=== PATIENT | female | born 1960 | race Caucasian/White ===

== ENCOUNTER → 2018-06-23 | Outpatient (CLI) | payer OTHER ==
--- NOTE | 2018-06-23 21:28 | Diagnostic Imaging Report ---
INDICATION: Routine screening. Comparison is made with prior mammograms from 01/30/2016 and 12/22/2013. 2-D and 3-D bilateral screening mammography was performed with computer-aided Detection (CAD) system. FINDINGS: Scattered fibroglandular densities are identified bilaterally. There is an area of increased density identified in the retroareolar aspect of the left breast medially which appears more prominent when compared with prior mammograms. There appears to be some questionable spiculation and architectural distortion. Additional views are recommended. No suspicious microcalcifications are identified. The right breast is unremarkable. The axillae are unremarkable. IMPRESSION: Left breast density retroareolar and slightly medial, as described. Additional views including spot compression, rolled CC, and 90-degree lateral views are recommended. Ultrasound will be necessary as well if density persists. ACR BI-RADS Category 0: Incomplete. (Needs additional imaging evaluation). Result letter will be mailed to the patient. Note: At least 10% of breast cancer is not imaged by mammography. Dictated by: Dictated on workstation # [id number]
== END ==
LOC: RAD 07:42
PROVIDERS: ATTEND Family Medicine
DX: Z12.31 Encounter for screening mammogram for malignant neoplasm of breast (principal)
CPT/HCPCS: 77067

== ENCOUNTER → 2018-07-01 | Outpatient (CLI) | payer OTHER ==
--- NOTE | 2018-07-01 19:37 | Diagnostic Imaging Report ---
INDICATION: Left breast density. Correlation is made with diagnostic mammogram earlier same day. FINDINGS: Sonographic interrogation of the upper and inner aspect of the left breast was performed. There is a hypoechoic mass at the 11 o'clock location left breast 2 cm from the nipple measuring 14 mm x 9 mm x 11 mm. This has somewhat angular margins. This does show some internal vascularity. No significant posterior acoustic enhancement is seen. IMPRESSION: Irregular hypoechoic mass at the 11 o'clock location of the left breast, corresponding to the mammographic density. Features are concerning for breast neoplasm. Tissue sampling is recommended. This would be amenable to ultrasound-guided core biopsy. ACR BI-RADS Category 4: Suspicious abnormality. Dictated by: Dictated on workstation # [id number]
--- NOTE | 2018-07-01 19:48 | Diagnostic Imaging Report ---
INDICATION: Left breast density. Patient presents for additional views. COMPARISON: Correlation is made with screening study from 06/23/2018. EXAMINATION: 2D and 3D unilateral left diagnostic mammography was performed. This includes spot compression CC and ML views as well as conventional 90 degree lateral view. The current study was also evaluated with a Computer Aided Detection (CAD) system. FINDINGS: Additional views show persistent irregular density in the medial and upper aspect of the left breast, approximately 3 cm from the nipple. No associated soft tissue calcifications are seen. There does appear to be some questionable spiculation and architectural distortion present. IMPRESSION: BI-RADS 0. Persistent irregular density in the upper and inner aspect of the left breast anterior depth. Further evaluation with ultrasound is recommended. ACR BI-RADS Category 0: Incomplete. (Needs additional imaging evaluation). Result letter will be mailed to the patient. Note: At least 10% of breast cancer is not imaged by mammography. Dictated by: Dictated on workstation # [id number]
== END ==
LOC: RAD 08:17
PROVIDERS: ATTEND Family Medicine
DX: N63.22 Unspecified lump in the left breast, upper inner quadrant (principal)
CPT/HCPCS: 76642

== ENCOUNTER → 2018-07-02 | Outpatient (CLI) | payer OTHER ==
[~2018-07-02] VITALS: Ht 175.3 cm; Wt 93.0 kg
[~2018-07-02] MED LIST: LIDOCAINE 1% INJ 20 ML 20 ML VIAL INJ ONE
--- NOTE | 2018-07-02 11:30 | Diagnostic Imaging Report ---
INDICATION: Left breast mass. Patient presents for ultrasound guided biopsy. TECHNIQUE: The patient was brought to the procedure room and placed in the bed in the supine position. Ultrasound imaging over the left breast was performed to evaluate for an appropriate entry site. The left breast was then prepped and draped in the usual sterile fashion. A small amount of 1% lidocaine was utilized for local anesthesia. A total of six core biopsies of the hypoechoic mass at the 11 o'clock location of the left breast 2 cm from the nipple was performed utilizing a 14-gauge Achieve needle. A marker clip was then deployed. Hemostasis was obtained using manual compression. The patient tolerated the procedure well and was sent for a post procedure mammogram in satisfactory condition. IMPRESSION: Successful ultrasound-guided core biopsy of the hypoechoic mass at the 11 o'clock location of the left breast, 2 cm from the nipple. The pathology results are currently pending. Dictated by: Dictated on workstation # [id number]
--- NOTE | 2018-07-02 11:31 | Diagnostic Imaging Report ---
INDICATION: Status post left breast biopsy. FINDINGS: 2D CC and ML views of the left breast were obtained. There is a marker clip identified in the upper and inner retroareolar aspect of the left breast corresponding to the known recently biopsied breast mass. IMPRESSION: The marker clip appears to be within the known lesion recently biopsied in the upper inner left breast. Dictated by: Dictated on workstation # [id number]
== END ==
LOC: RAD 08:15
PROVIDERS: ATTEND Family Medicine
DX: C50.912 Malignant neoplasm of unspecified site of left female breast (principal); N63.22 Unspecified lump in the left breast, upper inner quadrant
CPT/HCPCS: 19083; 88305; 88342; 88360

== ENCOUNTER → 2018-07-29 | Outpatient (CLI) | payer OTHER ==
--- NOTE | 2018-07-29 14:27 | Diagnostic Imaging Report ---
INDICATION: Cough for five days. TIME OF EXAM: 02:09 p.m. COMPARISON: No prior studies are available for comparison. FINDINGS: Heart size is normal. There is some linear scarring in the left base. No infiltrates are seen. No effusion or pneumothorax is identified. IMPRESSION: No acute cardiopulmonary process is detected. Called to Nita at 2:21 p.m. by cvb. Dictated by: Dictated on workstation # [id number]
== END ==
LOC: RAD 13:55
PROVIDERS: ATTEND Family Medicine
DX: R05 Cough (principal)
CPT/HCPCS: 71046

== ENCOUNTER → 2018-11-01 | Outpatient (CLI) | payer OTHER ==
--- NOTE | 2018-11-01 14:11 | Diagnostic Imaging Report ---
PROCEDURE: US Non-ob pelvis comp/trans. TECHNIQUE: Multiple realtime grayscale images were obtained of the pelvis in various projections endovaginally. Transabdominal imaging was also performed. INDICATION: Abnormal uterine bleeding. FINDINGS: Uterus measures 4.9 x 3.4 x 2.4 cm. Endometrium appears to be thin at approximately 2 mm. There is some myometrial heterogeneity but no discrete mass is detected. Ovaries cannot be visualized due to bowel gas. No adnexal mass or free fluid is seen. IMPRESSION: Nonvisualized ovaries. The study is otherwise unremarkable. Dictated by: Dictated on workstation # [id number]
== END ==
LOC: RAD 11:56
PROVIDERS: ATTEND Family Medicine
DX: N93.8 Other specified abnormal uterine and vaginal bleeding (principal)
CPT/HCPCS: 76830; 76856

== ENCOUNTER → 2019-01-04 | Outpatient (CLI) | payer OTHER ==
--- NOTE | 2019-01-04 16:02 | Diagnostic Imaging Report ---
INDICATION: Postmenopausal screening COMPARISON: Baseline FINDINGS: AP Spine L1-L4: [BMD (g/cm2): 1.291] [T-Score: 0.8] [Z-Score: 1.0] [BMD Previous: N/A] [BMD % Change: N/A] LT Hip Neck: [BMD (g/cm2): 0.993] [T-Score: -0.3] [Z-Score: 0.3] LT Hip Total: [BMD (g/cm2):1.124] [T-Score:0.9] [Z-Score: 1.2] [BMD Previous: N/A] [BMD % Change: N/A] RT Hip Neck: [BMD (g/cm2):1.029] [T-Score:-0.1] [Z-Score:0.6] RT Hip Total: [BMD (g/cm2):1.063] [T-score:0.4] [Z-Score:0.7] [BMD Previous:N/A] [BMD % Change:N/A] *Indicates significant change from prior examination based on 95% confidence level. World Health Organization criteria for BMD interpretation classify patients as Normal (T-score at or above -1.0), Osteopenic (T-score between -1.0 and -2.5) or Osteoporotic (T-score at or below -2.5). LIMITATIONS AND MODIFICATION: None. FRACTURE RISK (FRAX SCORE): The ten year probability of (%): Major Osteoporotic Fracture: [N/A] Hip Fracture: [N/A] IMPRESSION: 1. Normal Bone mineral density. 2. Baseline examination. 3. See below National Osteoporosis Foundation guidelines on when to potentially initiate pharmacologic therapy. Based on the National Osteoporosis Foundation Guidelines, pharmacologic treatment should be initiated in any of the following, unless clinical conditions suggest otherwise: * Any patient with prior fragility fracture of the hip or vertebrae. A spine fracture indicates 5X risk for subsequent spine fracture and 2X risk for subsequent hip fracture. * Osteoporosis (T-score <-2.5). * Postmenopausal women and men age 50 and older with low bone mass/osteopenia (T-score between -1.0 and -2.5) by DXA and 10-year major osteoporotic fracture greater than 20% or a 10-year probability of hip fracture greater than 3%. These fracture risks are supplied above in the FRAX score, if applicable. * Clinician judgement and/or patient preferences may indicate treatment for people with 10-year fracture probabilities above or below these levels. Dictated by: Dictated on workstation # [id number]
== END ==
LOC: RAD 09:59
PROVIDERS: ATTEND Internal Medicine Hematology & Oncology
DX: Z13.820 Encounter for screening for osteoporosis (principal); C50.912 Malignant neoplasm of unspecified site of left female breast; Z17.0 Estrogen receptor positive status [ER+]; Z78.0 Asymptomatic menopausal state
CPT/HCPCS: 77080

== ENCOUNTER 2019-04-13 05:35 | Outpatient (CLI) | payer OTHER ==
[~2019-04-13] VITALS: Ht 175 cm; Wt 86.3 kg
[2019-04-13] MEDS ORDERED: NF-AROM25 PO (09:16)
== END 2019-04-13 09:20 ==
LOC: PREOP 05:35
PROVIDERS: ATTEND Surgery
DX: Z01.818 Encounter for other preprocedural examination (principal)

== ENCOUNTER 2019-04-20 09:42 | Day surgery (SDC) | payer OTHER, BC ==
[~2019-04-20] VITALS: Ht 175 cm; Wt 86.3 kg
[2019-04-20] VITALS (15 sets, daily range): BP systolic 104–136; BP diastolic 5–80
[~2019-04-20 09:42] MED LIST changes: -LIDOCAINE 1% INJ 20 ML 20 ML VIAL INJ ONE; +NF-AROM25 PO
[2019-04-20] MEDS ORDERED: NS IV 500 ML 500 ML ONE (09:44)
[2019-04-20] MEDS ORDERED: NS IV 500 ML 500 ML IV PRN (09:58)
[2019-04-20] MEDS ORDERED: LIDOCAINE JELLY 2% 6 ML SYRINGE MM PRN (10:00)
[2019-04-20] MEDS ORDERED: fentaNYL INJECTION 100 MCG/2 ML AMP IVP ONE (10:00)
--- NOTE | 2019-04-20 10:34 | Progress Note-Pre Operative ---
Pre-Operative Progress Note H&P Reviewed The H&P was reviewed, patient examined and no changes noted. Date Seen by Provider: Apr 20, 2019 Time Seen by Provider: 10:00 Date H&P Reviewed: Apr 20, 2019 Time H&P Reviewed: 10:00 Pre-Operative Diagnosis: high risk quang, CHRISTINA Chen MD Apr 20, 2019 10:34 POS
--- NOTE | 2019-04-20 10:34 | Conscious Sedation/ASA ---
Conscious Sedation Pre-Proced Time 10:00 ASA Score 2 For ASA 3 and 4: Consider anesthesia and medical clearance. Also, for patients with a history of failed moderate sedation consider anesthesia. Airway Lungs Heart ASA score ASA 1: a normal healthy patient ASA 2: a patient with a mild systemic disease (mid diabetes, controlled hypertension, obesity ASA 3: a patient with a severe systemic disease that limits activity (angina, COPD, prior Myocardial infarction) ASA 4: a patient with an incapacitating disease that is a constant threat to life (CHF, renal failure) ASA 5: a moribund patient not expected to survive 24 hrs. (ruptured aneurysm) ASA 6: a declared brain- patient whose organs are being harvested. For emergent operations, add the letter E after the classification Mallampati Classification Grade 2 Sedation Plan Analgesia, Amnesia, Plan communicated to team members, Discussed options with patient/fam, Discussed risks with patient/fam The patient is an appropriate candidate to undergo the planned procedure, sedation, and anesthesia. The patient immediately re-assessed prior to indication. CHRISTINA FAIR MD Apr 20, 2019 10:34 POS
--- NOTE | 2019-04-20 10:36 | Discharge Inst-Surgical ---
D/C Lap Instructions-MARV Follow Up 5yrs Activity as tolerated High Fiber Diet 25g or more per day Avoid Alcohol, Caffeine, Spicy [place] and Acid foods. Drink 64 fluid oz or more of fluids per day. Symptoms to Report: Fever over 101 degree F, Nausea/Vomiting If any problems/questions: Contact your physician or go to Emergency Room CHRISTINA FAIR MD Apr 20, 2019 10:36 POS
[2019-04-20] MEDS ORDERED: ONDANSETRON 4 MG/2 ML (SDV) Z0FRAN IVP PRN (10:45)
[2019-04-20] MEDS ORDERED: morphine INJ 10 MG/ML 1ML (SYR OR VIAL) IVP PRN ×2 (10:45)
[2019-04-20] MEDS ORDERED: HYDROcodone/APAP 5 MG/325 MG (LORTAB) TAB PO PRN (10:45)
[2019-04-20] MEDS ORDERED: ACETAMINOPHEN 325 MG TABLET PO PRN (10:45)
[2019-04-20] MEDS ORDERED: LIDOCAINE JELLY 2% 6 ML SYRINGE ONE (11:00)
[2019-04-20] MEDS ORDERED: fentaNYL INJECTION 100 MCG/2 ML AMP ONE ×2 (11:00)
[2019-04-20] MEDS ORDERED: MIDAZOLAM 5 MG/5 ML (VERSED) VIAL ONE ×2 (11:00→11:01)
[2019-04-20] MEDS: MIDAZOLAM 5 MG/5 ML (VERSED) VIAL IV PRN ×6 (11:25→11:38)
--- NOTE | 2019-04-20 12:18 | Progress Note-Post Operative ---
Post-Operative Progess Note Surgeon (s)/Service Delivery Analyst (s) Surgeon CHRISTINA FAIR MD Service Delivery Analyst: none Pre-Operative Diagnosis high risk genentic, screening Post-Operative Diagnosis normal rectum and colon Procedure & Operative Findings Date of Procedure 04/20/19 Procedure Performed/Findings colonoscopy Anesthesia Type cs Estimated Blood Loss Estimated blood loss (mL): minimal Specimens/Packing Specimens Removed none CHRISTINA FAIR MD Apr 20, 2019 12:18 POS
--- NOTE | 2019-04-20 19:34 | OPERATIVE REPORT ---
DATE OF SERVICE: 04/20/2019 ATTENDING PRIMARY CARE PHYSICIAN: Meghan Del Rosario DO PREOPERATIVE DIAGNOSES: Screening colonoscopy with a personal history of breast cancer as well as genetic mutation, called a Bard1 gene. She also does have a family history of colon cancer with her maternal grandmother and mother having the disease. POSTOPERATIVE DIAGNOSES: Screening colonoscopy with a personal history of breast cancer as well as genetic mutation, called a Bard1 gene. She also does have a family history of colon cancer with her maternal grandmother and mother having the disease. PROCEDURE PERFORMED: Colonoscopy. SURGEON: Christina Fair MD. ANESTHESIA: Conscious sedation. ESTIMATED BLOOD LOSS: Minimal. FINDINGS: Screening colonoscopy with a personal history of breast cancer as well as genetic mutation, called a Bard1 gene. She also does have a family history of colon cancer with her maternal grandmother and mother having the disease. DISPOSITION: The patient tolerated the procedure well. INDICATIONS: The patient is a 59-year-old female who we have seen before in the past. Last colonoscopy was in 2013, where she was found to have mild sigmoid diverticulosis and a small hyperplastic polyp, which was benign. 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 Upon further questioning, she also does report her mother having breast and colon cancer as well her maternal grandmother having colon cancer. Due to her family history as well as genetic history, she is considered high risk and will need to have colonoscopies every 5 years. DESCRIPTION OF PROCEDURE: The patient was brought to the endoscopy suite, laid in the left lateral decubitus position. After adequate IV pain and sedative medications and conscious sedation anesthesia, a digital rectal examination was performed. No significant hemorrhoids identified. Normal sphincter tone was felt and there were no palpable masses. The endoscope was then intubated to the anus and rectum gently insufflated. The endoscope was then advanced to the valves of Kruse rectum with no polyps or any neoplasms identified. Sigmoid colon showed a very mild sigmoid diverticulosis. The remainder of the descending, transverse and ascending colon to the cecum were normal. There were no polyps or any neoplasms identified. The endoscope was then slowly withdrawn while taking a second look and suctioning of residual air with no additional findings. The patient tolerated the procedure well. We will recommend continued medical management with a high fiber diet with 25 grams of fiber or more daily as well as significant amounts of water to promote soft stools on a daily basis and to follow up colonoscopy in approximately 5 years. Job ID: [id number] DocumentID: [id number] Dictated Date: 04/20/2019 11:54:39 Ic Engineer Date: 04/20/2019 19:33:41 Dictated By: CHRISTINA FAIR MD MTDD
--- OUTSIDE RECORDS SUMMARY | 2019-05-15 23:37 | XMS REPORT | Encounter Summary ---
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, estrogen receptor positive (HCC) [C50.212, Z17.0] P rocedures GA IMMT INSJ BRST PROSTH FLWG MASTOPEXY MAST/RCNSTJ INSERTION BREAST PROSTHESIS FOLLOWING MASTOPEXY/ MASTECTOMY/ IN RECONSTRUCTION - IMMEDIATERight breast implant exchange with washoutCase length=1hr Encounter Details Care Team Description Date Type Department Yoon Ch MD [address] [place] [address] [phone] Infection of right breast 05/06/2019 [facility] 05/07/2019 [address] [place] [address] Social History Date Tobacco Use Types Packs/Day Years Used Never Smoker Smokeless Tobacco: Never Used Drinks/Week oz/Week Comments Alcohol Use No Alcohol Habits Answer Date Recorded How often do you have a drink containing alcohol? Never 07/14/2018 How many drinks containing alcohol do you have on No t asked a typical day when you are drinking? How often do you have six or more drinks on one Not asked occasion? Sex Assigned at Date Recorded Not on file Industry Job Start Date Occupation Not on file Not on file Not on file Travel End Travel History Travel Start No recent travel history available. documented as of this encounter Last Filed Vital Signs Reading Time Taken Comments Vital Sign 114/68 05/07/2019 11:15 AM VASCULAR ULTRASOUND TECHNICIAN Blood Pressure 74 05/07/2019 2:58 AM VASCULAR ULTRASOUND TECHNICIAN Pulse 36.6 C (97.8 F) 05/07/2019 11:15 AM VASCULAR ULTRASOUND TECHNICIAN Temperature - - Respiratory Rate 98% 05/07/2019 11:15 AM VASCULAR ULTRASOUND TECHNICIAN Oxygen Saturation - - Inhaled Oxygen Concentration 92.8 kg (204 lb 9.4 oz) 05/06/2019 3:25 PM VASCULAR ULTRASOUND TECHNICIAN Weight 175.3 cm (5' 9") 05/06/2019 11:09 AM VASCULAR ULTRASOUND TECHNICIAN Height 30.21 05/06/2019 11:09 AM VASCULAR ULTRASOUND TECHNICIAN Body Mass Index documented in this encounter Functional Status Date of Assessment Functional Status Response 05/06/2019 Does the patient have a hearing impairment: No 03/17/2019 Does the patient have a visual impairment: Yes 03/17/2019 Does the patient have impaired ambulation: No 03/17/2019 Does the patient have an activity of daily living No (ADL) impairment: 03/17/2019 Does the patient have an instrumental activity of No daily living (IADL) impairment: Date of Assessment Cognitive Status Response 03/17/2019 Does the patient have a cognitive impairment: No documented as of this encounter Discharge Instructions * Appointments* Carmen Orona MD - 05/06/2019 12:30 PM VASCULAR ULTRASOUND TECHNICIAN Please contact Dr. Ch's office at [phone] to schedule a post-operativ e appointment in 1-2 weeks ULAR ULTRASOUND TECHNICIAN documented in this encounter Medications at Time of Discharge Start Date End Date Medication Sig Dispensed Refills 08/04/2018 acetaminophen (TYLENOL) Take two 40 tablet 0 325 mg tablet tablets by mouth every 6 hours. Take as scheduled for 3 days following surgery, then as needed for pain after this. Do not exceed 4,000mg in a 24 hour period. ALPHA LIPOIC ACID PO Take by 0 mouth. 06/01/2018 ALPRAZolam (XANAX) 0.25 Take 0.5 mg 0 mg tablet by mouth as Needed. aspirin/acetaminophen/caf Take by 0 feine (EXCEDRIN MIGRAINE mouth as PO) Needed. biotin 10,000 mcg TbDi Dissolve 1 0 tablet by mouth daily. cetirizine (ZYRTEC) 10 mg Take 10 mg by 0 tablet mouth every morning. cholecalciferol(+) Take 5,000 0 (VITAMIN D-3) 5,000 unit Units by tablet mouth daily. cyanocobalamin (vitamin Place under 0 B-12) (VITAMIN B-12) tongue. 5,000 mcg subl 05/07/2019 diazePAM (VALIUM) 5 mg Take one 30 tablet 0 tablet tablet by mouth every 6 hours as needed for Anxiety (Spasm). 02/24/2019 exemestane (AROMASIN) 25 Take one 90 tablet 3 mg tab tablet by mouth daily. Take after a meal. famotidine (PEPCID PO) Take by 0 mouth twice daily. 06/01/2018 fluoxetine (PROZAC) 20 mg Take 20 mg by 0 capsule mouth daily. L.acid/L.casei/B.bif/B.lo Take 1 0 n/FOS (PROBIOTIC BLEND capsule by PO) mouth as Needed. 05/07/2019 05/17/2019 levoFLOXacin (LEVAQUIN) Take one 10 tablet 0 500 mg tablet tablet by mouth daily for 10 days. 09/02/2018 lidocaine/prilocaine Apply 30 g 0 (EMLA) 2.5/2.5 % topical topically to cream affected area as Needed. Apply to port a cath site about 30 - 45 min before access. 03/02/2019 ondansetron (ZOFRAN) 4 mg Take one 10 tablet 0 tablet tablet by mouth every 8 hours as needed for Nausea or Vomiting. other medication Take 1 Dose 0 by mouth daily. Vibe, energy supplement 03/28/2019 oxyCODONE (ROXICODONE) 5 Take one 20 tablet 0 mg tablet tablet to two tablets by mouth every 4 hours as needed pyridoxine (VITAMIN B-6) Take 100 mg 0 25 mg tab by mouth three times daily. TURMERIC PO Take by 0 mouth. vitamins, multi Take 1 tablet 0 w/minerals 27-0.4 mg tab by mouth daily. 05/02/2019 05/11/2019 clindamycin (CLEOCIN) 300 Take 300 mg 0 mg capsuleIndications: by mouth cellulitis every 8 hours. Take with 8oz of water. Indications: cellulitis documented as of this encounter Progress Notes * Yoon Ch MD - 05/07/2019 10:21 AM VASCULAR ULTRASOUND TECHNICIAN Pain controlled. No complaints. Is ready to go home. Vitals: 05/07/19 0732 BP: 103/58 Pulse: Temp: 36.7 C (98 F) SpO2: 99% Right breast erythema is improved. Still has swelling and right breast is higher and more firm. Softer than pre-anjelica rod. Cultures are pending. WBC so far. Plan to dc on Levaquin. Will follow up with culture results. Notify us of any changes. ULAR ULTRASOUND TECHNICIAN * Romina Johnson RN - 05/06/2019 8:00 PM VASCULAR ULTRASOUND TECHNICIAN Patient assessment completed and documented, she is alert and oriented x 4. She is comfortably resting in bed, her family is at the bedside. The right breast dr essing is clean, dry and intact. The TEOFILO drain to bulb suction is secure and pop nt. Patient is rating rt breast pain 2/10 and denies need for intervention at th is time. Plan of care reviewed with patient and she verbalized understanding. Bi l SCDs are on, call light is within reach. Will continue to monitor patient thro ughout the shift. ULAR ULTRASOUND TECHNICIAN * Amrik Aguero, RT - 05/06/2019 4:07 PM VASCULAR ULTRASOUND TECHNICIAN RT Adult Assessment Note NAME:Caridad Schaeffer :1960 AGE: 59 y.o. ADMISSION DATE: 05/06/2019 DAYS ADMITTED: LOS: 0 days RT Treatment Plan: Protocol Plan: Procedures PAP: Place a nursing order for "IS Q1h While Awake" for any of Lung Expansion in dicators Oxygen/Humidity: O2 to keep SpO2 > 95% Monitoring: Pulse oximetry continuous during night/sleep Additional Comments: Impressions of the patient: laying in bed Intervention(s)/outcome(s): eval Patient education that was completed: yes Recommendations to the care team: none Vital Signs: Pulse: 80 RR: 18 PER MINUTE SpO2: 100 % O2 Device: Liter Flow: O2%: 21 % Breath Sounds: Clear (implies normal) Respiratory Effort: Non-Labored ULAR ULTRASOUND TECHNICIAN * Ely Donald RN - 05/06/2019 3:25 PM VASCULAR ULTRASOUND TECHNICIAN Patient arrived on unit via cart accompanied by RN Patient transferred to the d with 1 person assistance. Assessment completed, refer to flowsheet for details . Orders released, reviewed, and implemented as appropriate. Oriented to sharad moncada, call light within reach. Plan of care reviewed. Will continue to monitor and assess. ULAR ULTRASOUND TECHNICIAN documented in this encounter H&P Notes * Yoon Ch MD - 05/06/2019 12:18 PM VASCULAR ULTRASOUND TECHNICIAN Admission History and Physical Examination Name: Caridad Schaeffer Admission Date: 05/06/2019 Assessment/Plan: Active Problems: * No active hospital problems. * Plan: right breast washout, implant removal or replacement Implant is the Start [id number]. __ Primary Care Physician: Meghan Del Rosario Verified Chief Complaint: Right breast erythema History of Present Illness: Caridad Schaeffer is a 59 y.o. female presents with ri ght breast erythema. Had a direct to implant reconstruction. More recently on she had bilateral breast fat grafting and a revision to the right breast. There were no issues until a few days ago when she noticed redness to the right breast after her Herceptin treatment. She did not feel fever or chills until the next day. Has been getting daily IM Rocephin from her PCP and is on Clindamycin. History of Present Illness Medical History: Diagnosis Date Anxiety and depression Pt denies; states Prozac is for menopause Cancer (HCC) breast CA History of left breast cancer 07/09/2018 IDC grade 2 Surgical History: Procedure Laterality Date HX TONSILLECTOMY 1967 childhood HX MENISCECTOMY Left 2012 2012 COLONOSCOPY 2016 BILATERAL SKIN SPARING MASTECTOMIES Bilateral 08/03/2018 Performed by Chandrika House MD at [facility] OR/PERIOP LEFT SENTINEL NODE BIOPSY Left 08/03/2018 Performed by Chandrika House MD at [facility] OR/PERIOP INJECTION RADIOACTIVE TRACER FOR SENTINEL NODE IDENTIFICATION Left 08/03/2018 Performed by Chandrika House MD at [facility] OR/PERIOP INTRAOPERATIVE SENTINEL LYMPH NODE IDENTIFICATION WITH NON-RADIOACTIVE DYE I NJECTION Left 08/03/2018 Performed by Chandrika House MD at [facility] OR/PERIOP PORT PLACEMENT RIGHT CEPHALIC 08/03/2018 Performed by Timothy Mendoza MD at [facility] OR/PERIOP FLUOROSCOPIC GUIDANCE CENTRAL VENOUS ACCESS DEVICE PLACEMENT/ REPLACEMENT/ R EMOVAL 08/03/2018 Performed by Timothy Mendoza MD at [facility] OR/PERIOP IMPLANTATION BIOLOGIC IMPLANT FOR SOFT TISSUE REINFORCEMENT Bilateral 019 Performed by Yoon Ch MD at [facility] OR/PERIOP INSERTION BREAST PROSTHESIS FOLLOWING MASTOPEXY/ MASTECTOMY/ IN RECONSTRUCTI ON - IMMEDIATE WITH SPY ANGIORRAPHY X 2 Bilateral 08/03/2018 Performed by Yoon Ch MD at [facility] OR/PERIOP INTRAVENOUS INJECTION AGENT TO TEST VASCULAR FLOW IN FLAP/ GRAFT Bilateral Performed by Yoon Ch MD at [facility] OR/PERIOP TISSUE GRAFT Bilateral 02/2019 Fat grafting to bilateral breasts REVISION RECONSTRUCTED BREAST Bilateral 03/28/2019 Performed by Yoon Ch MD at [facility] OR/PERIOP HX MASTECTOMY Family History Problem Relation Age of Onset Cancer-Breast Mother Cancer-Colon Mother Arthritis-osteo Mother Cancer-Breast Paternal Aunt Cancer Maternal Grandmother Cancer-Prostate Maternal Grandfather Stroke Maternal Grandfather Cancer Paternal Grandmother Cancer Paternal Grandfather Social History Socioeconomic History Marital status: Spouse name: Not on file Number of children: Not on file Years of education: Not on file Highest education level: Not on file 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 Social Needs Financial resource strain: Not on file Food insecurity: Worry: Not on file Inability: Not on file Transportation needs: Medical: Not on file Non-medical: Not on file Tobacco Use Smoking status: Never Smoker Smokeless tobacco: Never Used Substance and Sexual Activity Alcohol use: No Frequency: Never Drug use: No Sexual activity: Not on file Lifestyle Physical activity: Days per week: Not on file Minutes per session: Not on file Stress: Not on file Relationships Social connections: Talks on phone: Not on file Gets together: Not on file Attends pentecostalism service: Not on file Active member of club or organization: Not on file Attends meetings of clubs or organizations: Not on file Relationship status: Not on file Intimate partner violence: Fear of current or ex partner: Not on file Emotionally abused: Not on file Physically abused: Not on file Forced sexual activity: Not on file Other Topics Concern Not on file Social History Narrative Not on file Immunizations (includes history and patient reported): Immunization History Administered Date(s) Administered Flu Vaccine =>3 YO (Historical) 04/26/2018 Tdap Vaccine 01/23/2017 Allergies: Patient has no known allergies. Medications: Medications Prior to Admission Medication Sig acetaminophen (TYLENOL) 325 mg tablet Take two tablets by mouth every 6 hour s. Take as scheduled for 3 days following surgery, then as needed for pain after this. Do not exceed 4,000mg in a 24 hour period. ALPHA LIPOIC ACID PO Take by mouth. ALPRAZolam (XANAX) 0.25 mg tablet Take 0.5 mg by mouth as Needed. aspirin/acetaminophen/caffeine (EXCEDRIN MIGRAINE PO) Take by mouth as Need ed. biotin 10,000 mcg TbDi Dissolve 1 tablet by mouth daily. cetirizine (ZYRTEC) 10 mg tablet Take 10 mg by mouth every morning. cholecalciferol(+) (VITAMIN D-3) 5,000 unit tablet Take 5,000 Units by mouth daily. clindamycin (CLEOCIN) 300 mg capsule Take 300 mg by mouth every 8 hours. Jassi e with 8oz of water. Indications: cellulitis cyanocobalamin (vitamin B-12) (VITAMIN B-12) 5,[address] under ton emily. exemestane (AROMASIN) 25 mg tab Take one tablet by mouth daily. Take after a meal. famotidine (PEPCID PO) Take by mouth twice daily. fluoxetine (PROZAC) 20 mg capsule Take 20 mg by mouth daily. L.acid/L.casei/B.bif/B.emanuel/FOS (PROBIOTIC BLEND PO) Take 1 capsule by mouth as Needed. lidocaine/prilocaine (EMLA) 2.5/2.5 % topical cream Apply topically to affe cted area as Needed. Apply to port a cath site about 30 - 45 min before access. ondansetron (ZOFRAN) 4 mg tablet Take one tablet by mouth every 8 hours as n eeded for Nausea or Vomiting. other medication Take 1 Dose by mouth daily. Vibe, energy supplement oxyCODONE (ROXICODONE) 5 mg tablet Take one tablet to two tablets by mouth e very 4 hours as needed pyridoxine (VITAMIN B-6) 25 mg tab Take 100 mg by mouth three times daily. TURMERIC PO Take by mouth. vitamins, multi w/minerals 27-0.4 mg tab Take 1 tablet by mouth daily. Review of Systems Constitution: Positive for chills. Aching HENT: Negative. Eyes: Negative. Cardiovascular: Negative. Respiratory: Negative. Endocrine: Negative. Hematologic/Lymphatic: Negative. Skin: Negative. Musculoskeletal: Negative. Gastrointestinal: Negative. Genitourinary: Negative. Neurological: Negative. Psychiatric/Behavioral: Negative. Allergic/Immunologic: Negative. Physical Exam Vitals signs reviewed. Constitutional: General: She is not in acute distress. Appearance: Normal appearance. HENT: Head: Normocephalic. Eyes: Conjunctiva/sclera: Conjunctivae normal. Cardiovascular: Rate and Rhythm: Normal rate. Pulmonary: Effort: Pulmonary effort is normal. Comments: Right breast is warm with erythema and swelling. Also has grade 3 c apsule. Left breast normal, soft Skin: General: Skin is warm. Comments: Erythema, right breast Neurological: General: No focal deficit present. Psychiatric: Mood and Affect: Mood normal. Thought Content: Thought content normal. Vital Signs: Last Filed In 24 Hours Vital Signs: 24 Hour Range BP: 135/76 (05/06 110) Temp: 36.6 C (97.9 F) (05/06 1109) Pulse: 88 (05/06 110) Respirations: 18 PER MINUTE (05/06 110) SpO2: 99 % (05/06 1109) Height: 175.3 cm (69") (05/06 1109) BP: (135)/(76) Temp: [36.6 C (97.9 F)] Pulse: [88] Respirations: [18 PER MINUTE] SpO2: [99 %] Intensity Pain Scale (Self Report): 5 (05/06/19 1109) Lab/Radiology/Other Diagnostic Tests: 24-hour labs: No results found for this visit on 05/06/19 (from the past 24 nadiya r(s)). No pertinent radiology. Yoon Ch MD Pager [phone] ULAR ULTRASOUND TECHNICIAN documented in this encounter Miscellaneous Notes * Care Plan - Erna Rincon RN - 05/07/2019 11:31 AM VASCULAR ULTRASOUND TECHNICIAN VSS on RA, pain controlled with PO pain meds. Pt received IV zosyn and c/o mild itching afterwards controlled with hydroxyzine. Dressing to R breast C/D/I. TEOFILO d rain collecting serosanguineous drainage, stripped, emptied and reset. saw pt and placed D/C orders. IV was D/Reza. Pt is being helped to get dressed and belo ngings packed. RN to review D/C instructions with pt and escort to waiting vehic le once it arrives to pick her up. ULAR ULTRASOUND TECHNICIAN * Care Plan - Ely Donald RN - 05/06/2019 5:26 PM VASCULAR ULTRASOUND TECHNICIAN Care plan reviewed and update. ULAR ULTRASOUND TECHNICIAN * Operative Report (Direct Entry) - Yoon Ch MD - 05/06/2019 1:30 PM VASCULAR ULTRASOUND TECHNICIAN OPERATIVE REPORT Name: Caridad Schaeffer is a 59 y.o. female : 1960 MRN#: [id number] DATE OF OPERATION: 05/06/2019 Surgeon(s) and Role: * Yoon Ch MD - Primary * Carmen Orona MD - Resident - Assisting Preoperative Diagnosis: Malignant neoplasm of upper-inner quadrant of left breast in female, estrogen re ceptor positive (HCC) [C50.212, Z17.0] Post-op Diagnosis * Malignant neoplasm of upper-inner quadrant of left breast in female, estrog en receptor positive (HCC) [C50.212, Z17.0] Procedure(s) (LRB): INSERTION BREAST PROSTHESIS FOLLOWING MASTOPEXY/ MASTECTOMY/ IN RECONSTRUCTION - DELAYED Right breast implant exchange with washout Case length=1hr (Right) Anesthesia Type: General Description and Findings of Operative Procedure: patient is a 59 y/o woman on om I have done bilateral implant breast reconstruction. Her last surgery was 04/05 and we did bilateral fat grafting and a right breast revision. She has rec ently developed a right breast infection and I am washing out the right breast w ith implant replacement or removal. Consent obtained and patient taken to the OR and general anesthesia administered . The chest was prepped and draped with Chloraprep and the left breast was exclu ded from the field. The right breast vertical incision was narrowly excised and discarded. The tissue on the right was thick and inflamed. The implant pocket wa s opened and there was about 100 mL of serous drainage, some of which looked willis udy. Some of this fluid was sent for culture. The implant was removed, intact. The pocket was inspected. The AlloDerm was comp letely incorporated except for directly under the incision. There was a film wit hin the pocket which indicated an infection. The pocket was scraped with a curette and it was irrigated with 6 liters pulse l avage saline. Hemostasis obtained. A 15 Fr teofilo drain was placed through a separate stab incision and secured with 3- 0 Nylon suture. The pocket was irrigated with triple antibiotic and dilute betadine. Hemostasis was ensured and the pocket was inspected and was clean. The skin was painted wit h Betadine and a new implant was placed using minimal handling after changing in to new gloves. It was checked for proper orientation. The non-incorporated AlloDerm was excised and discarded. The pocket was closed w ith 3-0 Monocryl around the implant, 3-0 Monocryl for the dermis, and 4-0 Prolen e for the skin. The dressing was placed: Therabond, Tegaderm, and a surgical bra. Was extubated and taken to PACU in good condition. She will be admitted for IV a ntibiotics. Estimated Blood Loss: No blood loss documented. Implant: Start [id number] Implant Name Type Inv. Item Serial No. Dope Mixer Lot No. LRB No. Used Action IMPLANT BREAST 14CM MENTOR MEMORYGEL P4.9CM MODERATE PLUS - [id number] IMPLAN T BREAST 14CM [employer]ENTOR MEMORYGEL P4.9CM MODERATE PLUS [id number] MENTOR:AESTHETIC S PRDT [id number] Right 1 Explanted IMPLANT BREAST 14CM MENTOR MEMORYGEL P4.9CM MODERATE PLUS - [id number] IMPLAN T BREAST 14CM MENTOR MEMORYGEL P4.9CM MODERATE PLUS [id number] MENTOR ELLEN [id number] Right 1 Implanted Specimen(s) Removed/Disposition: ID Type Source Tests Collected by Time Destination A : right breast pocket fluid for culture and sensitivity, aerobic, anaerobic, g viridiana stain, afb, and fungal Tissue Breast,Right CULTURE-ANAEROBIC, CULTURE-WOUND/ TISSUE/FLUID(AEROBIC ONLY)W/SENSITIVITY, GRAM STAIN, CULTURE-FUNGAL,OTHER Yoon Joya MD 05/06/2019 1257 Attestation: I performed this procedure with a resident. Yoon Ch MD Pager ULAR ULTRASOUND TECHNICIAN documented in this encounter Plan of Treatment Date/Time Name Type Priority Associated Diag noses 05/06/2019 12:57 PM VASCULAR ULTRASOUND TECHNICIAN CULTURE-FUNGAL,OTHER Microbiology Routine Malignant neoplasm of upper-inner quadrant of left breast in female, estrogen receptor positive (HCC) 05/06/2019 12:57 PM VASCULAR ULTRASOUND TECHNICIAN CULTURE-TB (AFB) Microbiology documented as of this encounter Goals Goal Patient Associated Recent Progress Patient-Stat Aut hor Goal Type Problems ed? [facility] No Erna Rincon RN documented as of this encounter Procedures Comments Procedure Name Priority Date/Time Associated Diag nosis HC GRAM STAIN Routine 05/06/2019 Malignant neopl asm of 12:57 PM VASCULAR ULTRASOUND TECHNICIAN upper-inner quadrant of left breast in female, estrogen receptor positive (HCC) HC CULTURE-BACTERIAL Routine 05/06/2019 Malignant neoplasm of 12:57 PM VASCULAR ULTRASOUND TECHNICIAN upper-inner quadrant of left breast in female, estrogen receptor positive (HCC) HC CULTURE-ANAEROBIC Routine 05/06/2019 Malignant neoplasm of 12:57 PM VASCULAR ULTRASOUND TECHNICIAN upper-inner quadrant of left breast in female, estrogen receptor positive (HCC) INSERTION BREAST 05/06/2019 Malignant neoplasm of PROSTHESIS FOLLOWING 12:42 PM VASCULAR ULTRASOUND TECHNICIAN upper-inner quad rant of MASTOPEXY/ MASTECTOMY/ IN left breast in female, RECONSTRUCTION - DELAYED estrogen receptor positive (HCC) TELEMETRY STRIPS-SCAN 05/06/2019 12:00 AM VASCULAR ULTRASOUND TECHNICIAN documented in this encounter Results * GRAM STAIN (05/06/2019 12:57 PM VASCULAR ULTRASOUND TECHNICIAN) Battery Name GRAM STAIN MAIN LAB Specimen MISC FLUID MAIN LAB Description RIGHT BREAST POCKET Special NONE MAIN LAB Requests Gram Stain RARE MAIN LAB NEUTROPHILS NO ORGANISMS SEEN Report Status FINAL MAIN LAB 05/06/2019 Specimen Tissue - Misc Fluid Performing Organization Address [facility] Ph one Number MAIN LAB [address] [place] [address] * CULTURE-WOUND/TISSUE/FLUID(AEROBIC ONLY)W/SENSITIVITY (05/06/2019 12:57 PM VASCULAR ULTRASOUND TECHNICIAN) Battery Name ROUTINE CULTURE MAIN LAB Specimen MISC FLUID MAIN LAB Description RIGHT BREAST POCKET Special NONE MAIN LAB Requests Direct Gram RARE MAIN LAB Stain NEUTROPHILS NO ORGANISMS SEEN Culture NO GROWTH 5 DAYS MAIN LAB Report Status FINAL MAIN LAB 05/11/2019 Specimen Tissue - Misc Fluid Performing Organization Address [facility] Ph one Number MAIN LAB [address] [place] [address] * CULTURE-ANAEROBIC (05/06/2019 12:57 PM VASCULAR ULTRASOUND TECHNICIAN) Battery Name ANAEROBE CULTURE MAIN LAB Specimen MISC FLUID MAIN LAB Description RIGHT BREAST POCKET Special NONE MAIN LAB Requests Culture NO ANAEROBES ISOLATED MAIN LAB Report Status FINAL MAIN LAB 05/12/2019 Specimen Tissue - Misc Fluid Performing Organization Address [facility] Ph one Number MAIN LAB [address] [place] [address] * TELEMETRY STRIPS-SCAN (05/06/2019 12:00 AM VASCULAR ULTRASOUND TECHNICIAN) Narrative Performed At This result has an attachment that is n ot available. Ordered by an unspecified provider. documented in this encounter Visit Diagnoses Diagnosis Infection of right breast - Primary Inflammatory disease of breast Malignant neoplasm of upper-inner quadr ant of left breast in female, estrogen receptor positive (HCC) documented in this encounter Administered Medications Action Date Dose Rate Site Medication Order MAR Action 05/06/2019 11:42 AM VASCULAR ULTRASOUND TECHNICIAN 1,000 mg acetaminophen (TYLENOL) tablet 1,000 mg Given 1,000 mg, Oral, ONCE, 1 dose, Thu05/06/19 at 1145, Please give small sip of water when patient in pre-op, Pre-Op 05/07/2019 8:26 AM VASCULAR ULTRASOUND TECHNICIAN 1,000 mg acetaminophen (TYLENOL) tablet 1,000 mg Given 1,000 mg, Oral, EVERY 6 HOURS WHILE AWAKE, First dose on Thu05/06/19 at 2100, Until Discontinued, TOTAL ACETAMINOPHEN DOSE NOT TO EXCEED 4GM DAILY, 1,000 mg Given 05/06/2019 8:51 PM VASCULAR ULTRASOUND TECHNICIAN 05/07/2019 8:26 AM VASCULAR ULTRASOUND TECHNICIAN 10 mg cetirizine (ZYRTEC) tablet 10 mg Given 10 mg, Oral, EVERY MORNING, First dose on Thu05/06/19 at 1500, Until Discontinued 10 mg Given 05/06/2019 5:20 PM VASCULAR ULTRASOUND TECHNICIAN 05/07/2019 8:26 AM VASCULAR ULTRASOUND TECHNICIAN 40 mg Abdomen: RUQ enoxaparin (LOVENOX) syringe 40 mg Given 40 mg, Subcutaneous, DAILY, First dose on 05/07/19 at 0800, Until Discontinued, For patients undergoing surgery: Consult physician in advance - - enoxaparin is an anticoagulant and may need to be held for 12hr prior to surgery or invasive procedures. NOTE: This is a HIGH ALERT Medication., 05/07/2019 8:26 AM VASCULAR ULTRASOUND TECHNICIAN 20 mg famotidine (PEPCID) tablet 20 mg Given 20 mg, Oral, TWICE DAILY, First dose on Thu05/06/19 at 2100, Until Discontinue d 20 mg Given 05/06/2019 8:51 PM VASCULAR ULTRASOUND TECHNICIAN 05/07/2019 8:26 AM VASCULAR ULTRASOUND TECHNICIAN 20 mg fluoxetine (PROZAC) capsule 20 mg Given 20 mg, Oral, DAILY, First dose on Thu05/06/19 at 1700, Until Discontinued 20 mg Given 05/06/2019 5:20 PM VASCULAR ULTRASOUND TECHNICIAN 05/07/2019 11:08 AM VASCULAR ULTRASOUND TECHNICIAN 25 mg hydrOXYzine (ATARAX) tablet 25 mg Given 25 mg, Oral, EVERY 6 HOURS PRN, Starting Thu05/06/19 at 1446, Until Sa t 05/07/19 at 1730, Itching PO 25 mg Given 05/07/2019 3:01 AM VASCULAR ULTRASOUND TECHNICIAN 05/06/2019 11:40 AM VASCULAR ULTRASOUND TECHNICIAN 1,000 mL 20 mL/hr lactated ringers infusion Given - New 1,000 mL, 1,000 mL, Intravenous, at 20 Bag mL/hr, CONTINUOUS, Starting Thu 9 at 1115, Until 05/07/19 at 1730, Pre-Op 05/06/2019 2:22 PM VASCULAR ULTRASOUND TECHNICIAN 5 mg oxyCODONE (ROXICODONE) tablet 5-10 mg Given 5-10 mg, Oral, ONCE PRN, 1 dose, Starting Thu05/06/19 at 1420, Until Fr i 05/06/19 at 1422, Pain PO, For Pain Score <4, PACU (only) 05/07/2019 11:08 AM VASCULAR ULTRASOUND TECHNICIAN 5 mg oxyCODONE (ROXICODONE) tablet 5-10 mg Given 5-10 mg, Oral, EVERY 4 HOURS PRN, Starting Thu05/06/19 at 1446, Until Sa t 05/07/19 at 1730, Pain PO 5 mg Given 05/06/2019 9:15 PM VASCULAR ULTRASOUND TECHNICIAN OXYCODONE 5 MG PO TAB (Cabinet Override ) NOW, 1 dose, Thu05/06/19 at 1430, Created by cabinet override, Created by cabinet override, 05/07/2019 10:25 AM VASCULAR ULTRASOUND TECHNICIAN 3.375 g 200 mL/hr piperacillin/tazobactam (ZOSYN) 3.375 g Given in sodium chloride 0.9% (NS) 100 mL IVP B (MB+) 3.375 g, Intravenous, at 200 mL/hr, EVERY 6 HOURS, First dose on Thu05/06/19 at 1600, Until Discontinued 3.375 g 200 mL/hr Given 05/07/2019 4:08 AM VASCULAR ULTRASOUND TECHNICIAN 3.375 g 200 mL/hr Given 05/06/2019 10:09 PM VASCULAR ULTRASOUND TECHNICIAN 05/07/2019 8:26 AM VASCULAR ULTRASOUND TECHNICIAN 1 tablet senna/docusate (SENOKOT-S) tablet 1 Given tablet 1 tablet, Oral, TWICE DAILY, First dose on Thu05/06/19 at 2100, Until Discontinued, Hold for loose stools, 1 tablet Given 05/06/2019 8:51 PM VASCULAR ULTRASOUND TECHNICIAN 05/07/2019 8:25 AM VASCULAR ULTRASOUND TECHNICIAN 250 mL SODIUM CHLORIDE 0.9 % IV SOLP (Cabinet Given - New Override) Bag NOW, 1 dose, 05/07/19 at 0830, Created by cabinet override, Created by cabinet override, 05/07/2019 4:59 AM VASCULAR ULTRASOUND TECHNICIAN 1,500 mg 530 mL/hr vancomycin (VANCOCIN) 1,500 mg in sodium Given - New chloride 0.9% (NS) 530 mL IVPB Bag 1,500 mg (rounded from 1,395 mg = 15 mg/kg 93 kg), Intravenous, 530 mL, Administer over 60 Minutes, EVERY 12 HOURS, 4 doses, First dose on Thu05/06/19 at 1700, Last dose on Thu05/08/19 at 0500 , Note Pharmacokinetic Monitoring: Pleas e record infusion start time (Action= Given) and stop time (Action= Completed ) of dose when blood levels are drawn., 1,500 mg 530 mL/hr Given - New Bag 05/06/2019 5:20 PM VASCULAR ULTRASOUND TECHNICIAN documented in this encounter
--- OUTSIDE RECORDS SUMMARY | 2019-05-15 23:37 | XMS REPORT | Encounter Summary ---
Author Author [facility] Organization [facility] Address Unknown Phone Unavailable Care Team Providers Care Mental Health Counselor Name Role Phone Meghan Del Rosario MD PCP Reason for Visit * Auth/Cert Referred By Contact Referred To Contact Status Reason Specialty Diagnoses / Procedures Diagnoses Malignant neoplasm of upper-inner quadrant of left breast in female, estrogen receptor positive (HCC) Malignant neoplasm of upper-inner quadrant of left breast in female, estrogen receptor positive (HCC) [C50.212, Z17.0] P rocedures FL IMMT INSJ BRST PROSTH FLWG MASTOPEXY MAST/RCNSTJ INSERTION BREAST PROSTHESIS FOLLOWING MASTOPEXY/ MASTECTOMY/ IN RECONSTRUCTION - IMMEDIATERight breast implant exchange with washoutCase length=1hr Encounter Details Care Team Description Date Type Department Yoon Ch MD [address] [place] [address] INSERTION BREAST PROSTHESIS FOLLOWING MA STOPEXY/ MASTECTOMY/ IN RECONSTRUCTION - IMMEDIATE Right breast implant exchange with washout Case length=1hr 05/06/2019 Surgery [facility] [place] [id number] [place] [id number] Social History Date Tobacco Use Types Packs/Day [...] Comments Vital Sign 114/68 05/07/2019 11:15 AM IT PROGRAM MANAGER Blood Pressure 74 05/07/2019 2:58 AM IT PROGRAM MANAGER Pulse 36.6 C (97.8 F) 05/07/2019 11:15 AM IT PROGRAM MANAGER Temperature - - Respiratory Rate 98% 05/07/2019 11:15 AM IT PROGRAM MANAGER Oxygen Saturation - - Inhaled Oxygen Concentration 92.8 kg (204 lb 9.4 oz) 05/06/2019 3:25 PM IT PROGRAM MANAGER Weight 175.3 cm (5' 9") 05/06/2019 11:09 AM IT PROGRAM MANAGER Height 30.21 05/06/2019 11:09 AM IT PROGRAM MANAGER Body Mass Index documented in this encounter [...] Carmen Orona MD - 05/06/2019 12:30 PM IT PROGRAM MANAGER Please contact Dr. Ch's office at [phone] to schedule a post-operativ e appointment in 1-2 weeks PROGRAM MANAGER documented in this encounter Medications at Time [...] Yoon Ch MD - 05/07/2019 10:21 AM IT PROGRAM MANAGER Pain controlled. No complaints. Is ready to [...] culture results. Notify us of any changes. PROGRAM MANAGER * Romina Johnson RN - 05/06/2019 8:00 PM IT PROGRAM MANAGER Patient assessment completed and documented, she is [...] to monitor patient thro ughout the shift. PROGRAM MANAGER * Amrik Aguero, RT - 05/06/2019 4:07 PM IT PROGRAM MANAGER RT Adult Assessment Note NAME:Caridad Schaeffer :1960 [...] Sounds: Clear (implies normal) Respiratory Effort: Non-Labored PROGRAM MANAGER * Ely Donald RN - 05/06/2019 3:25 PM IT PROGRAM MANAGER Patient arrived on unit via cart accompanied by RN Patient transferred to the [facility] with 1 person assistance. Assessment completed, refer to flowsheet for details . Orders released, reviewed, and implemented as appropriate. Oriented to sharad moncada, call light within reach. Plan of care reviewed. Will continue to monitor and assess. PROGRAM MANAGER documented in this encounter H&P Notes * Yoon Ch MD - 05/06/2019 12:18 PM IT PROGRAM MANAGER Admission History and Physical Examination Name: Caridad Schaeffer Admission Date: 05/06/2019 Assessment/Plan: Active Problems: * No active hospital problems. * Plan: right breast washout, implant removal or replacement Implant is the Ida [id number]. __ Primary Care Physician: Meghan Del [...] 08/03/2018 Performed by Chandrika House MD at [facility] OR/PERIOP LEFT SENTINEL NODE BIOPSY Left 08/03/2018 Performed by Chandrika House MD at [facility] OR/PERIOP INJECTION RADIOACTIVE TRACER FOR SENTINEL NODE IDENTIFICATION Left 08/03/2018 Performed by Chandrika House MD at [facility] OR/PERIOP INTRAOPERATIVE SENTINEL LYMPH NODE IDENTIFICATION WITH NON-RADIOACTIVE DYE I NJECTION Left 08/03/2018 Performed by Chandrika House MD at [facility] OR/PERIOP PORT PLACEMENT RIGHT CEPHALIC 08/03/2018 Performed by Timothy Mendoza MD at [facility] OR/PERIOP FLUOROSCOPIC GUIDANCE CENTRAL VENOUS ACCESS DEVICE PLACEMENT/ REPLACEMENT/ R EMOVAL 08/03/2018 Performed by Timothy Mendoza MD at [facility] OR/PERIOP IMPLANTATION BIOLOGIC IMPLANT FOR SOFT TISSUE REINFORCEMENT Bilateral 019 Performed by Yoon Ch MD at [facility] OR/PERIOP INSERTION BREAST PROSTHESIS FOLLOWING MASTOPEXY/ MASTECTOMY/ IN RECONSTRUCTI ON - IMMEDIATE WITH SPY ANGIORRAPHY X 2 Bilateral 08/03/2018 Performed by Yoon Ch MD at [facility] OR/PERIOP INTRAVENOUS INJECTION AGENT TO TEST VASCULAR FLOW IN FLAP/ GRAFT Bilateral Performed by Yoon Ch MD at [facility] OR/PERIOP TISSUE GRAFT Bilateral 02/2019 Fat grafting to bilateral breasts REVISION RECONSTRUCTED BREAST Bilateral 03/28/2019 Performed by Yoon Ch MD at [facility] OR/PERIOP HX MASTECTOMY Family History Problem Relation [...] file Gets together: Not on file Attends congregational service: Not on file Active member of [...] (97.9 F) (05/06 1109) Pulse: 88 (05/06 1109) Respirations: 18 PER MINUTE (05/06 1109) SpO2: 99 % (05/06 1109) Height: 175.3 cm (69") (05/06 1109) BP: (135)/(76) Temp: [36.6 C (97.9 F)] Pulse: [88] Respirations: [18 PER MINUTE] SpO2: [99 %] Intensity Pain Scale (Self Report): 5 (05/06/19 1109) Lab/Radiology/Other Diagnostic Tests: 24-hour labs: No results found for this visit on 05/06/19 (from the past 24 nadiya r(s)). No pertinent radiology. Yoon Ch MD Pager [phone] PROGRAM MANAGER documented in this encounter Miscellaneous Notes * Care Plan - Erna Rincon RN - 05/07/2019 11:31 AM IT PROGRAM MANAGER VSS on RA, pain controlled with PO [...] once it arrives to pick her up. PROGRAM MANAGER * Care Plan - Ely Donald RN - 05/06/2019 5:26 PM IT PROGRAM MANAGER Care plan reviewed and update. PROGRAM MANAGER * Operative Report (Direct Entry) - Yoon Ch MD - 05/06/2019 1:30 PM IT PROGRAM MANAGER OPERATIVE REPORT Name: Caridad Schaeffer is a 59 y.o. female : 1960 MRN#: [id number] DATE OF OPERATION: 05/06/2019 Surgeon(s) and Role: [...] Blood Loss: No blood loss documented. Implant: Ida [id number] Implant Name Type Inv. Item Serial No. Marketing Technologist Lot No. LRB No. Used Action IMPLANT BREAST 14CM MENTOR MEMORYGEL P4.9CM MODERATE PLUS - [id number] IMPLAN T BREAST 14CM MENTOR MEMORYGEL P4.9CM MODERATE PLUS [id number] MENTOR:AESTHETIC S PRDT [id number] Right 1 Explanted IMPLANT BREAST 14CM MENTOR MEMORYGEL P4.9CM MODERATE PLUS - [id number] IMPLAN T BREAST 14CM MENTOR MEMORYGEL P4.9CM MODERATE PLUS [id number] MENTOR ELLEN [id number] Right 1 Implanted Specimen(s) Removed/Disposition: ID Type Source Tests Collected by Time Destination A : right breast pocket fluid for culture and sensitivity, aerobic, anaerobic, g viridiana stain, afb, and fungal Tissue Breast,Right CULTURE-ANAEROBIC, CULTURE-WOUND/ TISSUE/FLUID(AEROBIC ONLY)W/SENSITIVITY, GRAM STAIN, CULTURE-FUNGAL,OTHER Yoon Joya MD 05/06/2019 1257 Attestation: I performed this procedure with a resident. Yoon Ch MD Pager PROGRAM MANAGER documented in this encounter Plan of Treatment Date/Time Name Type Priority Associated Diag noses 05/06/2019 12:57 PM IT PROGRAM MANAGER CULTURE-FUNGAL,OTHER Microbiology Routine Malignant neoplasm of upper-inner quadrant of left breast in female, estrogen receptor positive (HCC) 05/06/2019 12:57 PM IT PROGRAM MANAGER CULTURE-TB (AFB) Microbiology documented as of this encounter Goals Goal Patient Associated Recent Progress Patient-Stat Aut hor Goal Type Problems ed? [facility] No Erna Rincon RN documented as of this encounter Procedures Comments Procedure Name Priority Date/Time Associated Diag nosis HC GRAM STAIN Routine 05/06/2019 Malignant neopl asm of 12:57 PM IT PROGRAM MANAGER upper-inner quadrant of left breast in female, estrogen receptor positive (HCC) HC CULTURE-BACTERIAL Routine 05/06/2019 Malignant neoplasm of 12:57 PM IT PROGRAM MANAGER upper-inner quadrant of left breast in female, estrogen receptor positive (HCC) HC CULTURE-ANAEROBIC Routine 05/06/2019 Malignant neoplasm of 12:57 PM IT PROGRAM MANAGER upper-inner quadrant of left breast in female, estrogen receptor positive (HCC) INSERTION BREAST 05/06/2019 Malignant neoplasm of PROSTHESIS FOLLOWING 12:42 PM IT PROGRAM MANAGER upper-inner quad rant of MASTOPEXY/ MASTECTOMY/ IN left breast in female, RECONSTRUCTION - DELAYED estrogen receptor positive (HCC) TELEMETRY STRIPS-SCAN 05/06/2019 12:00 AM IT PROGRAM MANAGER documented in this encounter Results * GRAM STAIN (05/06/2019 12:57 PM IT PROGRAM MANAGER) Battery Name GRAM STAIN MAIN LAB Specimen MISC FLUID MAIN LAB Description RIGHT BREAST POCKET Special NONE MAIN LAB Requests Gram Stain RARE MAIN LAB NEUTROPHILS NO ORGANISMS SEEN Report Status FINAL MAIN LAB 05/06/2019 Specimen Tissue - Misc Fluid Performing Organization Address [facility] one Number MAIN LAB [address] [place] [address] * CULTURE-WOUND/TISSUE/FLUID(AEROBIC ONLY)W/SENSITIVITY (05/06/2019 12:57 PM IT PROGRAM MANAGER) Battery Name ROUTINE CULTURE MAIN LAB Specimen MISC FLUID MAIN LAB Description RIGHT BREAST POCKET Special NONE MAIN LAB Requests Direct Gram RARE MAIN LAB Stain NEUTROPHILS NO ORGANISMS SEEN Culture NO GROWTH 5 DAYS KU MAIN LAB Report Status FINAL MAIN LAB 05/11/2019 Specimen Tissue - Misc Fluid Performing Organization Address [facility] one Number MAIN LAB [address] [place] [address] * CULTURE-ANAEROBIC (05/06/2019 12:57 PM IT PROGRAM MANAGER) Battery Name ANAEROBE CULTURE MAIN LAB Specimen MISC FLUID MAIN LAB Description RIGHT BREAST POCKET Special NONE MAIN LAB Requests Culture NO ANAEROBES ISOLATED MAIN LAB Report Status FINAL MAIN LAB 05/12/2019 Specimen Tissue - Misc Fluid Performing Organization Address [facility] one Number MAIN LAB [address] [phone] * TELEMETRY STRIPS-SCAN (05/06/2019 12:00 AM IT PROGRAM MANAGER) Narrative Performed At This result has an attachment that is n ot available. Ordered by an unspecified provider. documented in this encounter Visit Diagnoses Diagnosis Malignant neoplasm of upper-inner quadr ant of left breast in female, estrogen receptor positive (HCC) documented in this encounter Administered Medications Action Date Dose Rate Site Medication Order MAR Action 05/06/2019 11:42 AM IT PROGRAM MANAGER 1,000 mg acetaminophen (TYLENOL) tablet 1,000 mg Given 1,000 mg, Oral, ONCE, 1 dose, Thu05/06/19 at 1145, Please give small sip of water when patient in pre-op, Pre-Op 05/07/2019 8:26 AM IT PROGRAM MANAGER 1,000 mg acetaminophen (TYLENOL) tablet 1,000 mg Given 1,000 mg, Oral, EVERY 6 HOURS WHILE AWAKE, First dose on Thu05/06/19 at 2100, Until Discontinued, TOTAL ACETAMINOPHEN DOSE NOT TO EXCEED 4GM DAILY, 1,000 mg Given 05/06/2019 8:51 PM IT PROGRAM MANAGER 05/06/2019 1:26 PM IT PROGRAM MANAGER 1,000 mL ceFAZolin (ANCEF) 1 g, gentamicin 80 mg, Given bacitracin (BACIIM) 50,000 Units in sodium chloride 0.9% (NS) 1,000 mL irrigation bag 1,000 mL, INTRA-PROCEDURE MED, Starting Thu05/06/19 at 1326, Until Thu 9 at 1351, Intra-op 05/07/2019 8:26 AM IT PROGRAM MANAGER 10 mg cetirizine (ZYRTEC) tablet 10 mg Given 10 mg, Oral, EVERY MORNING, First dose on Thu05/06/19 at 1500, Until Discontinued 10 mg Given 05/06/2019 5:20 PM IT PROGRAM MANAGER 05/07/2019 8:26 AM IT PROGRAM MANAGER 40 mg Abdomen: RUQ enoxaparin (LOVENOX) syringe 40 mg Given 40 mg, Subcutaneous, DAILY, First dose on 05/07/19 at 0800, Until Discontinued, For patients undergoing surgery: Consult physician in advance - - enoxaparin is an anticoagulant and may need to be held for 12hr prior to surgery or invasive procedures. NOTE: This is a HIGH ALERT Medication., 05/07/2019 8:26 AM IT PROGRAM MANAGER 20 mg famotidine (PEPCID) tablet 20 mg Given 20 mg, Oral, TWICE DAILY, First dose on Thu05/06/19 at 2100, Until Discontinue d 20 mg Given 05/06/2019 8:51 PM IT PROGRAM MANAGER 05/07/2019 8:26 AM IT PROGRAM MANAGER 20 mg fluoxetine (PROZAC) capsule 20 mg Given 20 mg, Oral, DAILY, First dose on Thu05/06/19 at 1700, Until Discontinued 20 mg Given 05/06/2019 5:20 PM IT PROGRAM MANAGER 05/07/2019 11:08 AM IT PROGRAM MANAGER 25 mg hydrOXYzine (ATARAX) tablet 25 mg Given 25 mg, Oral, EVERY 6 HOURS PRN, Starting Thu05/06/19 at 1446, Until Sa t 05/07/19 at 1730, Itching PO 25 mg Given 05/07/2019 3:01 AM IT PROGRAM MANAGER 05/06/2019 11:40 AM IT PROGRAM MANAGER 1,000 mL 20 mL/hr lactated ringers infusion Given - New 1,000 mL, 1,000 mL, Intravenous, at 20 Bag mL/hr, CONTINUOUS, Starting Thu 9 at 1115, Until 05/07/19 at 1730, Pre-Op 05/06/2019 2:22 PM IT PROGRAM MANAGER 5 mg oxyCODONE (ROXICODONE) tablet 5-10 mg Given 5-10 mg, Oral, ONCE PRN, 1 dose, Starting 05/06/19 at 1420, Until Fr i 05/06/19 at 1422, Pain PO, For Pain Score <4, PACU (only) 05/07/2019 11:08 AM IT PROGRAM MANAGER 5 mg oxyCODONE (ROXICODONE) tablet 5-10 mg Given 5-10 mg, Oral, EVERY 4 HOURS PRN, Starting Thu05/06/19 at 1446, Until Sa t 05/07/19 at 1730, Pain PO 5 mg Given 05/06/2019 9:15 PM IT PROGRAM MANAGER OXYCODONE 5 MG PO TAB (Cabinet Override ) NOW, 1 dose, Thu05/06/19 at 1430, Created by cabinet override, Created by cabinet override, 05/07/2019 10:25 AM IT PROGRAM MANAGER 3.375 g 200 mL/hr piperacillin/tazobactam (ZOSYN) 3.375 g Given in sodium chloride 0.9% (NS) 100 mL IVP B (MB+) 3.375 g, Intravenous, at 200 mL/hr, EVERY 6 HOURS, First dose on Thu05/06/19 at 1600, Until Discontinued 3.375 g 200 mL/hr Given 05/07/2019 4:08 AM IT PROGRAM MANAGER 3.375 g 200 mL/hr Given 05/06/2019 10:09 PM IT PROGRAM MANAGER 05/07/2019 8:26 AM IT PROGRAM MANAGER 1 tablet senna/docusate (SENOKOT-S) tablet 1 Given tablet 1 tablet, Oral, TWICE DAILY, First dose on Thu05/06/19 at 2100, Until Discontinued, Hold for loose stools, 1 tablet Given 05/06/2019 8:51 PM IT PROGRAM MANAGER 05/07/2019 8:25 AM IT PROGRAM MANAGER 250 mL SODIUM CHLORIDE 0.9 % IV SOLP (Cabinet Given - New Override) Bag NOW, 1 dose, 05/07/19 at 0830, Created by cabinet override, Created by cabinet override, 05/06/2019 1:25 PM IT PROGRAM MANAGER 1,000 mL sodium chloride 0.9% irrigation bottle Given INTRA-PROCEDURE MED, Starting Thu05/06/19 at 1325, Until Thu05/06/19 at 1351, Intra-op 05/07/2019 4:59 AM IT PROGRAM MANAGER 1,500 mg 530 mL/hr vancomycin (VANCOCIN) 1,500 [...] Given - New Bag 05/06/2019 5:20 PM IT PROGRAM MANAGER documented in this encounter
--- OUTSIDE RECORDS SUMMARY | 2019-05-15 23:37 | XMS REPORT | Clinical Summary ---
Author Author [facility] Organization [facility] Address Unknown Phone Unavailable Care Team Providers Care Professor Of Rhetoric Name Role Phone Meghan Del Rosario MD PCP Source Comments Some departments are not documenting in the electronic medical record. If you d o not see the information that you expected, contact Release of Information in [facility] [employer] Information Management department at [phone] for further assistan ce in locating additional records.[facility] Allergies No Known Allergies Medications End Date Status Medication Sig Dispensed Refills Start Date Active ALPRAZolam (XANAX) 0.25 Take 0.5 mg 0 15/ 201 mg tablet by mouth as 9 Needed. Active fluoxetine (PROZAC) 20 mg Take 20 mg by 0 / 5201 capsule mouth daily. 9 Active biotin 10,000 mcg TbDi Dissolve 1 0 tablet by mouth daily. Active cholecalciferol(+) Take 5,000 0 (VITAMIN D-3) 5,000 unit Units by tablet mouth daily. Active other medication Take 1 Dose 0 by mouth daily. Vibe, energy supplement Active cetirizine (ZYRTEC) 10 mg Take 10 mg by 0 tablet mouth every morning. Active vitamins, multi Take 1 tablet 0 w/minerals 27-0.4 mg tab by mouth daily. Active acetaminophen (TYLENOL) Take two 40 tablet 0 / 325 mg tablet tablets by 9 mouth every 6 hours. Take as scheduled for 3 days following surgery, then as needed for pain after this. Do not exceed 4,000mg in a 24 hour period. Active lidocaine/prilocaine Apply 30 g 0 09/02 (EMLA) 2.5/2.5 % topical topically to 9 cream affected area as Needed. Apply to port a cath site about 30 - 45 min before access. Active aspirin/acetaminophen/caf Take by 0 feine (EXCEDRIN MIGRAINE mouth as PO) Needed. Active famotidine (PEPCID PO) Take by 0 mouth twice daily. Active exemestane (AROMASIN) 25 Take one 90 tablet 3 1 0 mg tab tablet by 9 mouth daily. Take after a meal. Active pyridoxine (VITAMIN B-6) Take 100 mg 0 25 mg tab by mouth three times daily. Active cyanocobalamin (vitamin Place under 0 B-12) (VITAMIN B-12) tongue. 5,000 mcg subl Active ALPHA LIPOIC ACID PO Take by 0 mouth. Active ondansetron (ZOFRAN) 4 mg Take one 10 tablet 0 tablet tablet by 9 mouth every 8 hours as needed for Nausea or Vomiting. Active oxyCODONE (ROXICODONE) 5 Take one 20 tablet 0 1 mg tablet tablet to two 9 tablets by mouth every 4 hours as needed Active TURMERIC PO Take by 0 mouth. Active L.acid/L.casei/B.bif/B.lo Take 1 0 n/FOS (PROBIOTIC BLEND capsule by PO) mouth as Needed. 05/17/2019 Active levoFLOXacin (LEVAQUIN) Take one 10 tablet 0 500 mg tablet tablet by 9 mouth daily for 10 days. Active diazePAM (VALIUM) 5 mg Take one 30 tablet 0 tablet tablet by 9 mouth every 6 hours as needed for Anxiety (Spasm). 05/11/2019 clindamycin (CLEOCIN) 300 Take 300 mg 0 04/17201 mg capsuleIndications: by mouth 9 cellulitis every 8 hours. Take with 8oz of water. 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 Individuals with a pathogenic mutation in the BARD1 gene are at increased risk for breast cancer and possibly ova levar cancer. Discussed meaning with genetic counselor on 09/30/2018. Recomme nd that individuals positive for BARD1 start screening for breast cancer at the age of 40 years or 10 years prior to the earliest diagnosis of yolette st cancer in the family (whichever comes first). In Arabella's family, since the earliest diagnosis was at the age of 56 years, we recommend that wome land positive for the gene in the family start screening no later than 40 years. Caridad has already undergone a bilateral mastectomy, she i s being followed in the breast clinic for residual risk. No additional screening is recommended for Caridad at this time, based on this res ult. Additional Information: At this time, the NCCN guidelines versi on does not mention any increased risk for ovarian cancer assoc iated with BARD1 pathogenic mutations. Management recommendations m ay be made based on family history, which at this time does not change anyt fidelina in terms of ovarian cancer screening for Caridad's family. 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 Individu als who have a known mutation in the MSH2 gene have Miller syndrome and are a t an increased risk for developing colorectal and gynecological cancers. W e do not recommend any changes to Caridad's medical management based on t his gene change alone. We discussed how she can search for her variant to determine if it has been reclassified. As more individuals are t ested and more knowledge accumulates, variants of uncertain sign ificance eventually become reclassified as pathogenic or benign. C candida was given a handout with instructions on how to check if her mira iant has been reclassified. she can also call our offices for an update on the status of her variant of uncertain significance. We do not recom mend that Caridad's unaffected family members seek testing for the mira iant that was found in MSH2. Since Caridad's first degree relatives ( parents, siblings and children) are all at a 50-50 chance of also havin g the BARD1 pathogenic mutation identified in Caridad, we recommend gen etic counseling and appropriate testing for all of them. Family history of colon cancer 10/07/2018 Overview: 10/07/2018 Mother and maternal grandmoth er had colon cancer. Discussed that even though we do not have a genetic mu tation to explain their colon cancer, she still has a family history of colon cancer. She had her first colonoscopy at 45 and second at 50. Breast cancer 08/03/2018 Encounter for breast reconstruction following mastect [place] 07/19/2018 Malignant neoplasm of left breast in female, estrogen receptor positive 07/09/2018 Cancer Staging: Clinical stage from 06/19: Stage IA (cT1c, cN0, cM0, G2, ER: Positive, WI: Positive, HER2: P ositive) - Signed by Jazmín Stark PA-C on 07/14/2018 Pathologic stage from 08/12/2018: Stage IA (pT1c, pN0(sn), cM0, G3, ER+, WI+, HER2-) - Signed by Jazmín Stark PA -C on 08/12/2018 Overview: DIAGNOSIS: Left grade 2 IDC (ER 95%, P R 55%, HER2 2+. HER2 by FISH Amplified) at 11:00. dx 06/2018 HISTORY: Ms. Schaeffer is a female who pre sented to the Breast Cancer Clinic on 07/14/2018 at age 58 for left breast cancer. She presented to screening mammogram in [place] on 06/23 when an abnormality was identified. Left diagnostic mammogram and ultrasound revealed a mass at 11:00 measuring 14 mm x 9mm x 11 mm. S he underwent sono-guided biopsy which revealed grade 2 invasive ductal carcinoma. She proceeded with Bilateral Skin Sparing mastectomy/Left SLNB on 08/03/2018. Final surgical pathology revealed on the right-benign, on the left- grade 3 IDC measuring 1.7 cm with clear margins and 0/4 lymph nodes. She completed adjuvant chemotherapy of weekly Taxol with Herce ptin from 09/02/2018-11/17/18 and thencontinued on Herceptin maintenanc e. BREAST IMAGING: Mammogram: - Screening mammogram 06/23/2018 ([facility]) revealed scattered fibroglandular densities were identifie d bilaterally. There was an area of increased density identified in the ret roareolar aspect of the left breast medially which appear more prominent wh en compared with prior mammograms. There appears to be some questionable s piculation and architectural distortion. Additional views were samir mmended. No suspicious microcalcifications were identified. T he right breast was unremarkable. The axillae were unremarkable. - Left diagnostic mammogram 07/01/2018 ( [facility]) revealed persistent irregular density in the med ial and upper aspect of the left breast, approximately 3 cm FTN. No ass ociated soft tissue calcifications were seen. There does appear to be kelly e questionable spiculation and architectural distortion present. - Left diagnostic mammogram 07/14/2018 ( [facility]) revealed a 1.5 x 1.2 cm mass with obscured margins in the upper inne r left breast at anterior depth consistent with biopsy-proven malignanc y. An S-shaped biopsy clip was in good position. No additional suspiciou s abnormality was identified in the left breast. Ultrasound: - Left targeted ultrasound 07/01/2018 ([facility]) revealed a hypoechoic mass at the 11:00 location l eft breast 2 cm FTN measuring 14 mm x 9mm x 11 mm. This has somewhat angul ar margins. This does show some internal vascularity. No significant p osterior acoustic enhancement was seen. - Left targeted ultrasound 07/14/2018 ([facility]) revealed at 11:00, 2 cm the nipple, there is an irregular hypoechoi c mass with angular margins measuring 2.0 x 1.3 x 1.8 cm with surro unding postbiopsy change consistent with biopsy-proven left breast malignan cy. The mass was located superficially within the breast, approx imately 4 mm the deep to the cutaneous surface. Surrounding postbiop sy change may contribute to size discrepancy when compared with outside ultrasound measurements. No morphologically suspicious left axillar y lymph nodes were identified. REPRODUCTIVE HEALTH: Age at first Menarche: 13 Age at First Live : 21 Age at Menopause: 52 : 4 Para: 3 : yes PROCEDURE: BSSM/L. SLNB with implant re construction 08/03/2018 ([facility]) PERTINENT PMH: Non-contributory FAMILY HISTORY: Mother-breast cancer ( 57), Colon Cancer. Paternal Aunt- breast cancer. No family history of ova levar cancer. MEDICAL ONCOLOGY: Dr. Christie Adjuvant chemotherapy: Weekly Taxol with Herceptin completed 09/02/2018-11/17/18 P resent Therapy: Herceptin maintenance until 08/2019, Femara starte d 11/2018, switched to Aromasin 02/2019 REFERRED BY: Dr. Meghan Hagen ast Assessment & Plan: Tolerating Taxol with slight nausea con trolled by [place] but having heart burn that is potentially causing nausea . She will begin omeprazole 20mg bid for 7 days then return to 20mg daily. S he is also having problems with "crashing" on Thursday after treatment an d being hyper for the 2 days after treatment. Decreased decadron to 6mg to see how she does. If continues to have issues, discussed could decrease d ecadron further if she is not having nausea or vomiting. After Taxol completed and she is on Her ceptin every 3 weeks she will need to have a 2 week break to help take car e of a grandchild in [place]. Discussed that Herceptin can be given w eekly, every 2 weeks or every 3 weeks and the schedule can be adjusted so she does not miss her treatments. Encouraged Caridad to see her PCP for e valuation of vaginal bleeding. Suggested she try [place] get on a regular basis to keep nose moist. Platelet are adequate and should not be leading to nose bleeds or vaginal bleeding. She will return to see Dr. Christie in 3 w eeks. She is also concerned that her mother had chemotherapy and had hea rt problems. Reviewed echocardiogram showing an EF of 60% and how while she is going through Herceptin she will be having an echocardiogram about every 3 months. Encounters Care Team Description Date Type Specialty Yoon Ch MD Post-hospital Follow Up 05/13/2019 Telephone Plastic Surgery Yoon Ch MD INSERTION BREAST PROSTHESIS FOLLOWING MA STOPEXY/ MASTECTOMY/ IN RECONSTRUCTION - IMMEDIATE Right breast implant exchange with washout Case length=1hr 05/06/2019 Surgery Isacc Welch MD Ayers, Taylor, CRNA 05/06/2019 Anesthesia Event Yoon Ch MD Infection of right breast 05/06/2019 Hospital - Encounter 05/07/2019 Yoon Ch MD Malignant neoplasm of upper-inner quadra nt of left breast in female, estrogen receptor positive (HCC) (Primary Dx); Encounter for breast reconstruction following mastectomy 05/05/2019 Prep for Case Plastic Surgery Duran Christie MD 04/28/2019 Hospital Oncology Encounter Yoon Ch MD Encounter for breast reconstruction foll owing mastectomy (Primary Dx); Deformity of reconstructed breast 04/13/2019 Office Visit Plastic Surgery Arin Styles, ELECTROMEDICAL EQUIPMENT REPAIRER Malignant neoplasm of upper-inner quadra nt of left breast in female, estrogen receptor positive (HCC) 04/07/2019 Office Visit Oncology Arin Styles, ELECTROMEDICAL EQUIPMENT REPAIRER 04/07/2019 Hospital Lab Encounter Arin Styles, ELECTROMEDICAL EQUIPMENT REPAIRER 04/07/2019 Hospital Oncology Encounter Yoon Ch MD REVISION RECONSTRUCTED BREAST 03/28/2019 Surgery Isacc Welch MD Coltharp, Kyle, MANAGER [employer] 03/28/2019 Anesthesia Event Yoon Ch MD Encounter for breast reconstruction foll owing mastectomy 03/28/2019 Hospital Encounter Arin Styles, ELECTROMEDICAL EQUIPMENT REPAIRER 03/17/2019 Hospital Oncology Encounter Yoon Ch MD Encounter for breast reconstruction foll owing mastectomy (Primary Dx); Deformity of reconstructed breast 03/02/2019 Office Visit Plastic Surgery Yoon Ch MD Encounter for breast reconstruction foll owing mastectomy (Primary Dx); Malignant neoplasm of left breast in female, estrogen receptor positive, unspecified site of breast (HCC) 03/02/2019 Prep for Case Plastic Surgery Jazmín Stark PA-C Malignant neoplasm of upper-inner quadra nt of left breast in female, estrogen receptor positive (HCC) (Primary Dx) 03/01/2019 Office Visit Oncology Jazmín Stark PA-C At risk for lymphedema 03/01/2019 Nurse Only Oncology Duran Christie MD 02/24/2019 Hospital Cardiology Encounter Duran Christie MD Malignant neoplasm of left breast in fem keke, estrogen receptor positive, unspecified site of breast (HCC) (Primary Dx); Menopause; BARD1 gene mutation positive 02/24/2019 Office Visit Oncology Duran Christie MD 02/24/2019 Hospital Oncology Encounter Duran Christie MD 02/24/2019 Hospital Lab Encounter from Last 3 Months Immunizations Name Administration Dates Next Due Flu Vaccine =>3 YO 04/26/2018 (Historical) Tdap Vaccine 01/23/2017 Family History Medical History Relation Name Comments Cancer-Prostate Maternal Grandfather Stroke Maternal Grandfather Cancer Maternal Grandmother Arthritis-osteo Mother Cancer-Breast Mother Cancer-Colon Mother Cancer-Breast Paternal Aunt Cancer Paternal Grandfather Cancer Paternal Grandmother Relation Name Status Comments Maternal Grandfather Maternal Grandmother Mother Paternal Aunt Paternal Grandfather Paternal Grandmother Social History Date Tobacco Use Types Packs/Day [...] Travel Start No recent travel history available. Last Filed Vital Signs Reading Time Taken Comments Vital Sign 114/68 05/07/2019 11:15 AM [facility] Blood Pressure 74 05/07/2019 2:58 AM [facility] Pulse 36.6 C (97.8 F) 05/07/2019 11:15 AM [facility] Temperature 18 04/28/2019 11:32 AM GROUP [facility] Respiratory Rate 98% 05/07/2019 11:15 AM GROUP [facility] Oxygen Saturation - - Inhaled Oxygen Concentration 92.8 kg (204 lb 9.4 oz) 05/06/2019 3:25 PM GROUP [facility]IO Weight 175.3 cm (5' 9") 05/06/2019 11:09 AM GROUP [facility] Height 30.21 05/06/2019 11:09 AM GROUP [facility]IO Body Mass Index Plan of Treatment Health Maintenance Due Date Last Done Comments HEPATITIS C SCREENING 1960 HIV SCREENING 01/26/1975 PHYSICAL (COMPREHENSIVE) 01/26/1978 EXAM CERVICAL CANCER SCREENING 01/26/1990 BREAST CANCER SCREENING 2000 COLORECTAL CANCER 01/26/2010 SCREENING SHINGLES RECOMBINANT 01/26/2010 VACCINE (1 of 2) INFLUENZA VACCINE 12/16/2018 04/26/2018 DTAP/TDAP VACCINES (2 - 01/23/2027 01/23/2017 Td) Goals Goal Patient Associated Recent Progress Patient-Stat Aut hor Goal Type Problems ed? [facility] No Erna Rincon, EBONI Implants Device Identifier Shelf Expiration Date Model / Serial / L ot Implanted Type Area Manufactur er 09/09/2022 [id number] / [id number] / [id number] Implant Breast 14cm Sherman Left: Breast MENTOR:AES Memorygel P4.9cm Moderate Plus - [id number] [id number] Implanted: Qty: 1 on 08/03/2018 by Yoon Ch MD at [facility] 06/17/2020 [id number] / NA / [id number] Matrix Tiss Aldrm Prfr Duo .4-2.4mm Right: Breast L IFECELL Thk [id number] Allograft - Sna Implanted: Qty: 1 on 08/03/2018 by Yoon Ch MD at [facility] 06/17/2020 [id number] / NA / [id number] Matrix Tiss Aldrm Prfr Duo .4-2.4mm Left: Breast L IFECELL Thk [id number] Allograft - Sna Implanted: Qty: 1 on 08/03/2018 by Yoon Ch MD at [facility] 01/16/2020 [id number] / NA / [id number] Port Implantable 8 Float Point Unit Right: Chest C R Siom Intermediate - Sna BARD:ACCES Implanted: Qty: 1 on 08/03/2018 by Timothy Wilkins Jr., MD at [facility] 10/27/2023 [id number] / [id number] / [id number] Implant Breast 14cm Sherman Right: Breast MENTOR Memorygel P4.9cm Moderate Plus - ELLEN [id number] Implanted: Qty: 1 on 05/06/2019 by Yoon Ch MD at [facility] Device Identifier Shelf Expiration Date Model / Serial / L ot Explanted Type Area Manufactur er 09/09/2022 [id number] / [id number] / [id number] Implant Breast 14cm Sherman Right: Breast MENTOR:AES Memorygel P4.9cm Moderate Plus - [employer]TICS [id number] PRDT Implanted: Qty: 1 on 08/03/2018 by Yoon Ch MD at [facility] Explanted: Qty: 1 on 05/06/2019 at [facility] Procedures Comments Procedure Name Priority Date/Time Associated Diag nosis HC CULTURE-TB DIRECT 05/06/2019 12:57 PM [facility] HC CULTURE-FUNGAL; OTHER Routine 05/06/2019 Malig nant neoplasm of 12:57 PM GROUP [facility]IO upper-inner quadrant of left breast in female, estrogen receptor positive (HCC) HC GRAM STAIN Routine 05/06/2019 Malignant neopl asm of 12:57 PM [facility] upper-inner quadrant of left breast in female, estrogen receptor positive (HCC) HC CULTURE-BACTERIAL Routine 05/06/2019 Malignant neoplasm of 12:57 PM GROUP [facility]IO upper-inner quadrant of left breast in female, estrogen receptor positive (HCC) HC CULTURE-ANAEROBIC Routine 05/06/2019 Malignant neoplasm of 12:57 PM [facility] upper-inner quadrant of left breast in female, estrogen receptor positive (HCC) INSERTION BREAST 05/06/2019 Malignant neoplasm of PROSTHESIS FOLLOWING 12:42 PM [facility] upper-inner quad rant of MASTOPEXY/ MASTECTOMY/ IN left breast in female, RECONSTRUCTION - DELAYED estrogen receptor positive (HCC) TELEMETRY STRIPS-SCAN 05/06/2019 12:00 AM [facility] HC COMPREHENSIVE Routine 04/07/2019 Malignant thierry plasm of METABOLIC PANEL 10:13 AM GROUP CIO left breast in fema le, estrogen receptor positive, unspecified site of breast (HCC) BARD1 gene mutation positive HC CBC W/ AUTOMATED DIFF Routine 04/07/2019 Malig nant neoplasm of 10:13 AM GROUP [facility]IO left breast in female, estrogen receptor positive, unspecified site of breast (HCC) BARD1 gene mutation positive REVISION RECONSTRUCTED 03/28/2019 Encounter for breast BREAST 12:06 PM [facility] reconstruction foll owing mastectomy Malignant neoplasm of left breast in female, estrogen receptor positive, unspecified site of breast (HCC) Special Needs 03/11 PER CHANGE FORM, CASE MOVED FROM 03/28 AT [facility] [place] TO 03/28 [facility] - BP (1135) TELEMETRY STRIPS-SCAN 03/28/2019 12:00 AM [facility] 2-D ECHOCARDIOGRAM ONLY Routine 02/24/2019 Malign ant neoplasm of 2:51 PM CDT left breast in female, estrogen receptor positive, unspecified site of breast (HCC) HC CBC W/ AUTOMATED DIFF Routine 02/24/2019 Malig nant neoplasm of 9:47 AM CDT left breast in female, estrogen receptor positive, unspecified site of breast (HCC) HC COMPREHENSIVE Routine 02/24/2019 Malignant thierry plasm of METABOLIC PANEL 9:47 AM CDT left breast in fema le, estrogen receptor positive, unspecified site of breast (HCC) from Last 3 Months Results * GRAM STAIN (05/06/2019 12:57 PM [facility]) Battery Name GRAM STAIN MAIN LAB Specimen MISC FLUID MAIN LAB Description RIGHT BREAST POCKET Special NONE MAIN LAB Requests Gram Stain RARE MAIN LAB NEUTROPHILS NO ORGANISMS SEEN Report Status FINAL MAIN LAB 05/06/2019 Specimen Tissue - Misc Fluid Performing Organization Address [facility] MA[facility] LAB [address] [place] [address] * CULTURE-WOUND/TISSUE/FLUID(AEROBIC ONLY)W/SENSITIVITY (05/06/2019 12:57 PM [facility]) Battery Name ROUTINE CULTURE MAIN LAB Specimen MISC FLUID MAIN LAB Description RIGHT BREAST POCKET Special NONE MAIN LAB Requests Direct Gram RARE MAIN LAB Stain NEUTROPHILS NO ORGANISMS SEEN Culture NO GROWTH 5 DAYS MAIN LAB Report Status FINAL MAIN LAB 05/11/2019 Specimen Tissue - Misc Fluid Performing Organization Address [facility] MAIN LAB [address] [place] [address] * CULTURE-ANAEROBIC (05/06/2019 12:57 PM GROUP [facility]) Battery Name ANAEROBE CULTURE MAIN LAB Specimen MISC FLUID MAIN LAB Description RIGHT BREAST POCKET Special NONE MAIN LAB Requests Culture NO ANAEROBES ISOLATED MAIN LAB Report Status FINAL MAIN LAB 05/12/2019 Specimen Tissue - Misc Fluid Performing Organization Address [facility] one Number MAIN LAB [address] [place] [address] * TELEMETRY STRIPS-SCAN (05/06/2019 12:00 AM GROUP [facility]) Narrative Performed At This result has an attachment that is n ot available. Ordered by an unspecified provider. * CBC AND DIFF (04/07/2019 10:13 AM GROUP C[facility]) Only the most recent of 2 results within the time period is included. White Blood 5.7 4.5 - 11.0 K[facility] Cells [place] RBC 4.32 4.0 - 5.0 M/UL [facility] [place] Hemoglobin 12.1 12.0 - 15.0 GM/DL [facility] [place] Hematocrit 36.5 36 - 45 % [facility] [place] MCV 84.5 80 - 100 FL [facility] [place] MCH 28.0 26 - 34 PG [facility] [place] MCHC 33.2 32.0 - 36.0 G/DL [facility] [place] RDW 14.8 11 - 15 % [facility] [place] Platelet Count 333 150 - 400 K/[facility] [place] MPV 6.3 (L) 7 - 11 FL [facility] [place] Neutrophils 60 41 - 77 % [facility] [place] Lymphocytes 28 24 - 44 % [facility] [place] Monocytes 9 4 - 12 % [facility] [place] Eosinophils 2 0 - 5 % [facility] [place] Basophils 1 0 - 2 % [facility] [place] Absolute 3.50 1.8 - 7.0 [facility] Neutrophil [place] Count Absolute Lymph 1.60 1.0 - 4.8 [facility] Count [place] Absolute 0.50 0 - 0.80 [facility] Monocyte Count [place] Absolute 0.10 0 - 0.45 [facility] Eosinophil [place] Count Absolute 0.00 0 - 0.20 [facility] Basophil Count [place] Specimen Blood Performing Organization Address [place]State[place] one Number [facility] [place] [address] [place], [place] [address] * COMPREHENSIVE METABOLIC PANEL (04/07/2019 10:13 AM GROUP [facility]) Only the most recent of 2 results within the time period is included. Sodium 139 137 - 147 MMOL/L [facility] Potassium 4.3 3.5 - 5.1 MMOL/L [facility] Chloride 105 98 - 110 MMOL/L [facility] Glucose 88 70 - 100 MG/DL [facility] Blood Urea 14 7 - 25 MG/DL [facility] Nitrogen Creatinine 0.66 0.4 - 1.00 MG/DL [facility] Calcium 9.7 8.5 - 10.6 MG/DL [facility] Total Protein 7.3 6.0 - 8.0 G/DL [facility] Total Bilirubin 0.4 0.3 - 1.2 MG/DL [facility] Albumin 4.6 3.5 - 5.0 G/DL [facility] Alk Phosphatase 76 25 - 110 U/L [facility] AST (SGOT) 24 7 - 40 U/L [facility] CO2 25 21 - 30 MMOL/L [facility] ALT (SGPT) 31 7 - 56 U/L [facility] Anion Gap 9 3 - 12 [facility] eGFR Non >60 >60 mL/min [facility] Comment: [place] The eGFR is not validated f or use in drug dosing adjustments. Continue to use estimated creatinine clearance per dosing reference text. Please contact the Clinical Pharmacist for questions. eGFR >60 >60 mL/min [facility] [place] Comment: The eGFR is not validated for use in drug dosing adjustments. Continue to use estimated creatinine clearance per dosing reference text. Please contact the Clinical Pharmacist for questions. Specimen Blood Performing Organization Address City/State/Zipcode Ph one Number [facility] [address] [place] [address] * TELEMETRY STRIPS-SCAN (03/28/2019 12:00 AM GROUP CIO) Narrative Performed At This result has an attachment that is n ot available. Ordered by an unspecified provider. * 2-D ECHOCARDIOGRAM ONLY (02/24/2019 2:51 PM CDT) IVS 0.90 0.6 - 0.9 cm OTHER OUTSIDE LAB LVIDD 4.6 3.8 - 5.2 cm OTHER OUTSIDE LAB LVIDS 3.22 2.2 - 3.5 cm OTHER OUTSIDE LAB PW 0.84 0.6 - 0.9 cm OTHER OUTSIDE LAB Left Ventricle 100.16 46 - 106 mL OTHER OUTSIDE Diastolic LAB Volume Left Ventricle 46.37 29 - 61 mL OTHER OUTSIDE Diastolic LAB Volume Index Left Ventricle 35.13 14 - 42 mL OTHER OUTSIDE Systolic Volume LAB Left Ventricle 16.26 8 - 24 mL OTHER OUTSIDE Systolic Volume LAB Index Right 2.37 1.9 - 3.5 cm OTHER OUTSIDE Ventricular Mid LAB Diameter LA volume 68.46 22 - 52 mL OTHER OUTSIDE LAB Right Atrial 15.74 <18 cm2 OTHER OUTSIDE Area LAB Right Atrial 4.29 2.2 - 2.8 cm OTHER OUTSIDE Major Dimension LAB Right 3.71 2.5 - 4.1 cm OTHER OUTSIDE Ventricular LAB Basal Diameter Right Heart 1.96 >1.7 cm OTHER OUTSIDE Systolic Mmode LAB TAPSE Sinus 3.21 2.4 - 3.6 cm OTHER OUTSIDE LAB Ascending aorta 2.68 cm OTHER OUTSIDE LAB BSA 2.16 m2 OTHER OUTSIDE LAB Referring Duran Chrisite OTHER OUTSIDE Provider LAB FS 30.00 28 - 44 % OTHER OUTSIDE LAB EF 51.00 % OTHER OUTSIDE LAB LV mass 131.64 67 - 162 g OTHER OUTSIDE LAB RWT 0.37 <=0.42 OTHER OUTSIDE LAB Left Atrium 31.69 16 - 34 OTHER OUTSIDE Index LAB Cardiology Siemens [id number] OTHER OUTSIDE Ultrasound LAB Machine Left Ventricle 60.95 43 - 95 g/m2 OTHER OUTSIDE Mass Index LAB ECHO EF 60 % OTHER OUTSIDE LAB Specimen Narrative Performed At OTHER OUTSIDE LAB Rest Echo: 1. Normal left ventricular systolic fun ction with an EF ~ 60% 2. No regional wall motion abnormalitie s. 3. No structural valve abnormalities 4. Normal LV wall thickness 5. Normal aortic root dimension 6. No pericardial effusion 7. Normal chamber dimensions 8. 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 necessary based on Dx 08/04/2018 3:42 PM Full Code 08/03/2018 2:07 PM Provider has discussed Code Status Yes w/Patient or Family?
--- OUTSIDE RECORDS SUMMARY | 2019-05-15 23:37 | XMS REPORT | Encounter Summary ---
Author Author [facility] Organization [facility] Address Unknown Phone Unavailable Care Team Providers Care Ripening Room Operator Name Role Phone Meghan Del Rosario MD PCP Reason for Visit * Auth/Cert Referred By Contact Referred To Contact Status Reason Specialty Diagnoses / Procedures Diagnoses Malignant neoplasm of upper-inner quadrant of left breast in female, estrogen receptor positive (HCC) Malignant neoplasm of upper-inner quadrant of left breast in female, estrogen receptor positive (HCC) [C50.212, Z17.0] P rocedures CT IMMT INSJ BRST PROSTH FLWG MASTOPEXY MAST/RCNSTJ INSERTION BREAST PROSTHESIS FOLLOWING MASTOPEXY/ MASTECTOMY/ IN RECONSTRUCTION - IMMEDIATERight breast implant exchange with washoutCase length=1hr Encounter Details Care Team Description [place] [address] [place], [place] [id number] Darby Raymundo CRNA [id number] [place] [address] [phone] 05/06/2019 Anesthesia [facility] [place] [address] [place], [place] [id number] Anesthesia Record Responsible Anesthesiologist Anesthesia Start Time Anesthesi a Stop Time Procedure Name Isacc Welch MD 05/06/19 1242 05/06/19 1356 INSERTION BREAST PROSTHESIS FOLLOWING MASTOPEXY/ MASTECTOMY/ IN RECONSTRUCTION - IMMEDIATE Right breast implant exchange with washout Case length=1hr (Right ) Date Time Event Comment 1205 AN Equip Check 1241 Out of Pre Procedure 1242 Anes Start 1242 In Room 1244 An Start Data 1247 An Induction The patient was ree valuated immediately before moderate or deep sedation use and before anesthesia induction. 1248 An Intubation 1250 Anesthesia Ready 1300 Antibiotic Given 1303 Proc Start 1349 An Extubation 1350 an stop data 1356 Handoff to RN I completed my SBAR handoff to the receiving nurse. 1356 An Stop Meds Name Total midazolam (VERSED) 1 mg/mL injection 2 mg fentaNYL PF (SUBLIMAZE) injection 100 mcg lidocaine (2%) 200 mg/10mL Injection 80 mg syringe propofol (DIPRIVAN) 200 mg/ 20 mL 200 mg injection (VIAL) ondansetron (ZOFRAN) injection 4 mg dexamethasone (DECADRON) 4 mg/mL 4 mg injection dextran 70/hypromellose (GENTEAL TEARS; 2 drop BION TEARS) ophthalmic solution ceFAZolin (ANCEF) injection 2 g lactated ringers infusion 600 mL * Name O2 N2O Inspired Sevoflurane Inspired Sevoflurane * No blood administrations on file. Removal Type Details Placement Portacath 08/03/18; 1200; X-ray (FLOUROSCOPY) 1200 by Self, EBONI June Wounds 05/06/19; Right, Anterior; Breast; 0000 by Self, (NOT for Surgical Incision EBONI June Pressure Injuries) Dinh 05/06/19; Right; Breast; 15 FR; #1 0000 by Self, Rajni June RN Drain 05/06/19 1502 by Adrienne Cheung RN Wounds Left; Axilla; Surgical Incision; 08/03 1447 by (NOT for 05/06/19 (not present upon admission); Pressure 1502 Injuries) 05/06/19 1442 by Adrienne Cheung RN Wounds 08/03/18; Left; Breast; Surgical 08/03 0000 by Self, (NOT for Incision; 05/06/19 (not present upon Antoine doty RN Pressure admission to pacu); 1442; T HERABOND, Injuries) TEGADERM, POST OP BRA 05/06/19 1442 by Adrienne Cheung RN Wounds 08/03/18; Right; Chest; Surgical 08/03 0000 by Self, (NOT for Incision; 05/06/19 (not present upon Antoine doty RN Pressure admission to pacu); 1442; D ERMABOND Injuries) 05/06/19 1443 by Adrienne Cheung RN Dinh 08/03/18; 1050; Right; Breast; 15 FR; 08/03/18 1050 by Self, Urban #4; 05/06/19 (not present upon admissio emery June RN Drain to pacu); 1443 05/06/19 1443 by Adrienne Cheung RN Benton 08/03/18; 1050; Right; Breast; 15 FR; 08/03/18 1050 by Self, Urban #3; 05/06/19 (not present upon admissio emery June RN Drain to pacu); 1443 05/06/19 1443 by Adrienne Cheung RN Wounds 08/03/18; 1127; Right; Breast; Surgical 08/03/18 1127 by Self, (NOT for Incision; 05/06/19 (not present upon Antoine doty RN Pressure admission to pacu); 1443; T HERABOND, Injuries) TEGADERM, POST OP BRA 05/06/19 1441 by Adrienne Cheung RN Benton 08/03/18; 1135; Left; Breast; 15 FR; #1 ; 08/03/18 1135 by Self, Urban 05/06/19 (not present upon admission to EBONI June Drain pacu); 1441 05/06/19 1441 by Adrienne Cheung RN [place] 08/03/18; 1137; Left; Breast; 15 FR; #2 ; 08/03/18 1137 by Self, Urban 05/06/19 (not present upon admission to EBONI June Drain pacu); 1441 05/06/19 1444 by Adrienne Cheung RN Peripheral 03/28/19; 1145; RN; R; Forearm; 20 G; 03/28/19 1145 by Sy, IV Lidocaine Prep; 1; 05/06/19 (not presen t Deidra, RN upon admission to pacu); 1444 05/06/19 1442 by Adrienne Cheung RN Wounds 03/28/19; 1224; Abdomen; Surgical 03/18 06/05 1224 by Meche, (NOT for Incision (liposuction ports); 05/06/19 EBONI Caballero Pressure (not present upon admission to pacu); Injuries) 1442 05/06/19 1442 by Adrienne Cheung RN Wounds 03/28/19; 1224; Right; Breast; Surgical 03/28/19 1224 by Meche, (NOT for Incision; 05/06/19 (not present upon Gael dave RN Pressure admission to pacu); 1442 Injuries) 05/06/19 1443 by Adrienne Cheung RN Wounds 03/28/19; 1224; Left; Breast; Surgical 03/28/19 1224 by Meche, (NOT for Incision; 05/06/19 (not present upon Gael dave RN Pressure admission to pacu); 1443 Injuries) 05/07/19 1115 by Erna Rincon RN Peripheral 05/06/19; 1140; RN; R; Hand; 22 G; No; 05/06/19 1140 by CALE Andrea 2; Therapy completed; 05/07/19; 1115 Bautista garber RN 05/06/19 1349 by Darby Raymundo CRNA [place] 05/06/19; 1248; Ventilated by mask (1); 05/06/19 1248 by laurent Raymundo Airway LMA; 4; 1 insertion attempt; Neli Pastor Auscultation, End-tidal CO2; atraumatic , dentition unchanged from preop assessment; 05/06/19; 1349 documented in this encounter Social History Date Tobacco Use Types Packs/Day [...] history available. documented as of this encounter Functional Status Date of Assessment [...] impairment: No documented as of this encounter OR Notes * Anesthesia Postprocedure Evaluation - Jazmín Guardado MD - 05/06/2019 5:27 PM WIRELESS NETWORK ENGINEER Post-Anesthesia Evaluation Name: Caridad Schaeffer : 1960 Age: 59 y.o. Sex: female Procedure Date: 05/06/2019 Procedure(s) (LRB): INSERTION BREAST PROSTHESIS FOLLOWING MASTOPEXY/ MASTECTOMY/ IN RECONSTRUCTION - IMMEDIATE Right breast implant exchange with washout Case length=1hr (Right) Surgeon: Surgeon(s): Yoon Ch MD Guest, Rachel A., MD Post-Anesthesia Vitals BP: 127/80 (05/06 1525) Temp: 36.7 C (98.1 F) (05/06 1500) Pulse: 80 (05/06 1600) Respirations: 18 PER MINUTE (05/06 1600) SpO2: 100 % (05/06 1500) Height: 175.3 cm (69") (05/06 1109) Vitals Value Taken Time BP 137/77 05/06/2019 3:00 PM Temp 36.7 C (98.1 F) 05/06/2019 3:00 PM Pulse 82 05/06/2019 3:00 PM Respirations 16 PER MINUTE 05/06/2019 3:00 PM SpO2 100 % 05/06/2019 3:00 PM Post Anesthesia Evaluation Note Evaluation location: Pre/Post Patient participation: recovered; patient participated in evaluation Level of consciousness: alert Pain score: 2 Pain management: adequate Hydration: normovolemia Temperature: 36.0C - 38.4C Airway patency: adequate Perioperative Events Post-op nausea and vomiting: no PONV Postoperative Status Cardiovascular status: hemodynamically stable Respiratory status: spontaneous ventilation Follow-up needed: none Perioperative Events Perioperative Event: No Emergency Case Activation: No LESS NETWORK ENGINEER * Anesthesia Preprocedure Evaluation - Isacc Welch MD - 05/06/2019 11:34 AM WIRELESS NETWORK ENGINEER Anesthesia Pre-Procedure Evaluation Name: Caridad Schaeffer : 1960 Age: 59 y.o. Sex: female Procedure Date: 05/06/2019 Procedure: Procedure(s): INSERTION BREAST PROSTHESIS FOLLOWING MASTOPEXY/ MASTECTOMY/ IN RECONSTRUCTION - IMMEDIATE Right breast implant exchange with washout Case length=1hr Physical Assessment Vital Signs (last filed in past 24 hours): BP: 135/76 (05/06 110) Temp: 36.6 C (97.9 F) (05/06 1109) Pulse: 88 (05/06 1109) Respirations: 18 PER MINUTE (05/06 1109) SpO2: 99 % (05/06 1109) Height: 175.3 cm (69") (05/06 1109) Weight: 93 kg (205 lb) (05/06 1109) Patient History No Known Allergies Current Medications Medication Directions acetaminophen (TYLENOL) 325 mg tablet Take two tablets by mouth every 6 hours. T neida as scheduled for 3 days following surgery, then as needed for pain after thi s. Do not exceed 4,000mg in a 24 hour period. ALPHA LIPOIC ACID PO Take by mouth. ALPRAZolam (XANAX) 0.25 mg tablet Take 0.5 mg by mouth as Needed. aspirin/acetaminophen/caffeine (EXCEDRIN MIGRAINE PO) Take by mouth as Needed. biotin 10,000 mcg TbDi Dissolve 1 tablet by mouth daily. cetirizine (ZYRTEC) 10 mg tablet Take 10 mg by mouth every morning. cholecalciferol(+) (VITAMIN D-3) 5,000 unit tablet Take 5,000 Units by mouth kobe ly. clindamycin (CLEOCIN) 300 mg capsule Take 300 mg by mouth every 8 hours. Take wi th 8oz of water. Indications: cellulitis cyanocobalamin (vitamin B-12) (VITAMIN B-12) 5,[address] under tongue. exemestane (AROMASIN) 25 mg tab Take one tablet by mouth daily. Take after a anastasia l. famotidine (PEPCID PO) Take by mouth twice daily. fluoxetine (PROZAC) 20 mg capsule Take 20 mg by mouth daily. L.acid/L.casei/B.bif/B.emanuel/FOS (PROBIOTIC BLEND PO) Take 1 capsule by mouth as N eeded. lidocaine/prilocaine (EMLA) 2.5/2.5 % topical cream Apply topically to affected area as Needed. Apply to port a cath site about 30 - 45 min before access. ondansetron (ZOFRAN) 4 mg tablet Take one tablet by mouth every 8 hours as neede d for Nausea or Vomiting. other medication Take 1 Dose by mouth daily. Vibe, energy supplement oxyCODONE (ROXICODONE) 5 mg tablet Take one tablet to two tablets by mouth every 4 hours as needed pyridoxine (VITAMIN B-6) 25 mg tab Take 100 mg by mouth three times daily. TURMERIC PO Take by mouth. vitamins, multi w/minerals 27-0.4 mg tab Take 1 tablet by mouth daily. Review of Systems/Medical History Patient summary reviewed Nursing notes reviewed Pertinent labs reviewed PONV Screening: Female gender, Non-smoker and Postoperative opioids No history of anesthetic complications No family history of anesthetic complications Airway - negative Pulmonary Not a current smoker No indications/hx of asthma No recent URI Not on home oxygen No sleep apnea Cardiovascular Recent diagnostic studies: echocardiogram Rest Echo: 1. Normal left ventricular systolic function with an EF ~ 60% 2. No regional wall motion abnormalities. 3. No structural valve abnormalities 4. Normal LV wall thickness 5. Normal aortic root dimension 6. No pericardial effusion 7. Normal chamber dimensions 8. Normal global strain pattern (-21.25%) Exercise tolerance: >4 METS Beta Jerica therapy: No Beta blockers within 24 hours: n/a No hypertension, No valvular problems/murmurs No past NV, No dysrhythmias No angina No indications/hx of CHF No orthopnea Pt denies any h/o NV, CHF or significant arrhythmias. Pt denies any CP or S OB with > 4 metabolic equivalents. GI/Hepatic/Renal No GERD, No hx of liver disease No renal disease Neuro/Psych No seizures No CVA Psychiatric history Depression Anxiety Musculoskeletal - negative Endocrine/Other Malignancy (breast cancer) Obesity [place] Currently has cellulitis in right breast Physical Exam Airway Findings Mallampati: II TM distance: >3 FB Neck ROM: full Mouth opening: good Airway patency: adequate Dental Findings: Negative Cardiovascular Findings: Rhythm: regular Rate: normal Pulmonary Findings: Negative Abdominal Findings: Negative Neurological Findings: Negative Alert and oriented x 3 Constitutional findings: No acute distress Well-developed Well-nourished Diagnostic Tests Hematology: Lab Results Component Value Date HGB 12.1 04/07/2019 HCT 36.5 04/07/2019 PLTCT 333 04/07/2019 WBC 5.7 04/07/2019 NEUT 60 04/07/2019 ANC 3.50 04/07/2019 ALC 1.60 04/07/2019 IRENE 9 04/07/2019 AMC 0.50 04/07/2019 EOSA 2 04/07/2019 ABC 0.00 04/07/2019 MCV 84.5 04/07/2019 MCH 28.0 04/07/2019 MCHC 33.2 04/07/2019 MPV 6.3 04/07/2019 RDW 14.8 04/07/2019 General Chemistry: Lab Results Component Value Date NA 139 04/07/2019 K 4.3 04/07/2019 CL 105 04/07/2019 CO2 25 04/07/2019 GAP 9 04/07/2019 BUN 14 04/07/2019 CR 0.66 04/07/2019 GLU 88 04/07/2019 CA 9.7 04/07/2019 ALBUMIN 4.6 04/07/2019 TOTBILI 0.4 04/07/2019 Coagulation: Lab Results Component Value Date PTT 28.3 07/14/2018 INR 1.0 07/14/2018 Anesthesia Plan ASA score: 2 Plan: general Induction method: intravenous NPO status: acceptable Informed Consent Anesthetic plan and risks discussed with patient. Use of blood products discussed with patient Blood Consent: consented Plan discussed with: surgeon/proceduralist, anesthesiologist, resident and robert renee. LESS NETWORK ENGINEER documented in this encounter Plan of Treatment Not on filedocumented as of this encounter Goals Goal Patient Associated Recent Progress Patient-Stat Aut hor Goal Type Problems ed? [facility] No Erna Rincon RN documented as of this encounter Visit Diagnoses Not on filedocumented in this encounter Administered Medications Action Date Dose Rate Site Medication Order MAR Action 05/06/2019 1:00 PM WIRELESS NETWORK ENGINEER 2 g ceFAZolin (ANCEF) injection Given INTRA-PROCEDURE MED, Starting Thu05/06/19 at 1300, Until Thu05/06/19 at 1356, Anesthesia Intra-op 05/06/2019 12:53 PM WIRELESS NETWORK ENGINEER 4 mg dexamethasone (DECADRON) injection Given Intravenous, INTRA-PROCEDURE MED, Starting Thu05/06/19 at 1253, Until Fr i 05/06/19 at 1356, Anesthesia Intra-op 05/06/2019 12:48 PM WIRELESS NETWORK ENGINEER 2 drops dextran 70/hypromellose (GENTEAL TEARS) Given ophthalmic solution INTRA-PROCEDURE MED, Starting Thu05/06/19 at 1248, Until Thu05/06/19 at 1356, Anesthesia Intra-op 05/06/2019 1:34 PM WIRELESS NETWORK ENGINEER 50 mcg fentaNYL citrate PF (SUBLIMAZE) Given injection INTRA-PROCEDURE MED, Starting Thu05/06/19 at 1300, Until Thu05/06/19 at 1356, Anesthesia Intra-op 50 mcg Given 05/06/2019 1:00 PM WIRELESS NETWORK ENGINEER 05/06/2019 12:47 PM WIRELESS NETWORK ENGINEER 80 mg lidocaine (PF) injection Given INTRA-PROCEDURE MED, Starting Thu05/06/19 at 1247, Until Thu05/06/19 at 1356, Anesthesia Intra-op 05/06/2019 12:41 PM WIRELESS NETWORK ENGINEER 2 mg midazolam (VERSED) injection Given Intravenous, INTRA-PROCEDURE MED, Starting Thu05/06/19 at 1241, Until Fr i 05/06/19 at 1356, Anesthesia Intra-op 05/06/2019 1:30 PM WIRELESS NETWORK ENGINEER 4 mg ondansetron (ZOFRAN) injection Given Intravenous, INTRA-PROCEDURE MED, Starting 05/06/19 at 1330, Until Fr i 05/06/19 at 1356, Anesthesia Intra-op 05/06/2019 1:35 PM WIRELESS NETWORK ENGINEER 50 mg propofol (DIPRIVAN) injection Given INTRA-PROCEDURE MED, Starting Thu05/06/19 at 1247, Until 05/06/19 at 1356, Anesthesia Intra-op 150 mg Given 05/06/2019 12:47 PM WIRELESS NETWORK ENGINEER documented in this encounter
--- OUTSIDE RECORDS SUMMARY | 2019-05-15 23:37 | XMS REPORT | Encounter Summary ---
Author Author [facility] Organization [facility] Address Unknown Phone Unavailable Care Team Providers Care Audio Visual Director Name Role Phone Meghan Del Rosario MD PCP Reason for Visit * Reason Comments Post-hospital Follow Up Encounter Details Care Team Description Date Type Department Yoon Ch MD [address] [place] [id number] Post-hospital Follow Up 05/13/2019 Telephone The [address] [place] [address] Social History Date Tobacco Use Types Packs/Day [...] impairment: No documented as of this encounter Miscellaneous Notes * Telephone Encounter - Elvia Garcia RN - 05/13/2019 12:28 PM TRANSLATION DIRECTOR Right breast is no longer red or tender. Swelling is resolving but it is still l arger than left breast. Caridad denies fever, fatigue or chills. Drains remains active around 25cc/daily. She is still taking levaquin. Confirmed all post-op ap pts. Will call with changes.Elvia Garcia RN SLATION DIRECTOR documented in this encounter Plan of Treatment Not on filedocumented as of this encounter Goals Goal Patient Associated Recent Progress Patient-Stat Aut hor Goal Type Problems ed? [facility] No Erna Rincon RN documented as of this encounter Visit Diagnoses Not on filedocumented in this encounter
--- OUTSIDE RECORDS SUMMARY | 2019-05-15 23:38 | XMS REPORT | Encounter Summary ---
Author Author [facility] Organization [facility] Address Unknown Phone Unavailable Care Team Providers Care Preschool Special Education Teacher Name Role Phone Meghan Del Rosario MD PCP Reason for Visit * Reason Comments Post Operative Visit Encounter Details Care Team Description Date Type Department Yoon Ch MD [address] [place] [address] Encounter for breast reconstruction foll owing mastectomy (Primary Dx); Deformity of reconstructed breast 04/13/2019 Office Visit The [address] [place] [address] Social History Date Tobacco Use [...] Signs Reading Time Taken Comments Vital Sign 140/82 04/13/2019 1:11 PM MANAGER PRESENTATION Blood Pressure 97 04/13/2019 1:11 PM MANAGER PRESENTATION Pulse - - Temperature 18 04/13/2019 1:11 PM MANAGER PRESENTATION Respiratory Rate - - Oxygen Saturation - - Inhaled Oxygen Concentration 90.7 kg (200 lb) 04/13/2019 1:11 PM MANAGER PRESENTATION Weight 175.3 cm (5' 9") 04/13/2019 1:11 PM MANAGER PRESENTATION Height 29.53 04/13/2019 1:11 PM MANAGER PRESENTATION Body Mass Index documented in this encounter Functional Status Date of Assessment Functional Status Response 03/17/2019 Does the patient have a hearing impairment: [...] impairment: No documented as of this encounter Progress Notes * Yoon Ch MD - 04/13/2019 1:30 PM MANAGER PRESENTATION 2 weeks s/p fat grafting. Pain controlled with no meds. The abdomen was painful. Vitals: 04/13/19 1311 BP: 140/82 Pulse: 97 Resp: 18 Good shape and contour. Abdomen flat. Plan for additional fat grafting at the time of portacath removal. If necessary. GER PRESENTATION documented in this encounter Plan of Treatment Not on filedocumented as of this encounter Goals Goal Patient Associated Recent Progress Patient-Stat Aut hor Goal Type Problems ed? [facility] No Erna Rincon RN documented as of this encounter Visit Diagnoses Diagnosis Encounter for breast reconstruction fol lowing mastectomy - Primary Deformity of reconstructed breast documented in this encounter
--- OUTSIDE RECORDS SUMMARY | 2019-05-15 23:38 | XMS REPORT | Encounter Summary ---
Author Author [facility] Organization [facility] Address Unknown Phone Unavailable Care Team Providers Care Cloth Laminating Supervisor Name Role Phone Meghan Del Rosario MD PCP Reason for Visit * Auth/Cert Referred By Contact Referred To Contact Status Reason Specialty Diagnoses / Procedures Diagnoses Encounter for breast reconstruction following mastectomy Malignant neoplasm of left breast in female, estrogen receptor positive, unspecified site of breast (HCC) Encounter for breast reconstruction following mastectomy [Z42.1] Malignant neoplasm of left breast in female, estrogen receptor positive, unspecified site of breast (HCC) [C50.912, Z17.0] P rocedures OK TISSUE GRAFTS OTHER OK REVISION RECONSTRUCTED BREAST FAT GRAFTING TO BILATERAL RECONSTRUCTED BREAST REVISION RECONSTRUCTED BREAST Encounter Details Care Team Description [place] [address] [address] [facility] [address] [place] [address] Ramon Nielsen CRNA [address] ANIVAL [address] [place], [place] [id number] 03/28/2019 Anesthesia [facility] [place] [address] [place] [address] Anesthesia Record Responsible Anesthesiologist Anesthesia Start Time Anesthesi a Stop Time Procedure Name Isacc Welch MD 03/28/19 1207 03/28/19 1329 REVISION RECONSTRUCTED BREAST (Bilateral ) Date Time Event Comment 1141 1206 Out of Pre Procedure 1206 In Room 1207 Anes Start 1207 AN Equip Check 1207 An Start Data 1210 An Induction The patient was ree valuated immediately before moderate or deep sedation use and before anesthesia induction. 1211 An Intubation 1215 Anesthesia Ready 1217 Antibiotic Given 1224 Proc Start 1325 An Extubation 1326 an stop data 1329 Handoff to RN I completed my SBAR handoff to the receiving nurse. 1329 An Stop Meds Name Total midazolam (VERSED) 1 mg/mL injection 2 mg fentaNYL PF (SUBLIMAZE) injection 100 mcg lidocaine (2%) 200 mg/10mL Injection 50 mg syringe propofol (DIPRIVAN) 200 mg/ 20 mL 200 mg injection (VIAL) ondansetron (ZOFRAN) injection 4 mg dexamethasone (DECADRON) 4 mg/mL 4 mg injection phenylephrine (FRANK-SYNEPHRINE) 0.1 mg/mL 100 mcg injection (SYRINGE) ceFAZolin (ANCEF) injection 2 g lactated ringers infusion 0 mL * Name O2 N2O Inspired Sevoflurane Inspired Sevoflurane * No blood administrations on file. Removal Type Details Placement Portacath 08/03/18; 1200; X-ray (FLOUROSCOPY) 1200 by SelfShaylee RN 05/06/19 1502 by Adrienne Cheung RN Wounds [...] Self, Urban #4; 05/06/19 (not present upon admisspatricio June RN Drain to pacu); 1443 05/06/19 1443 by Adrienne Cheung RN Dinh 08/03/18; 1050; Right; Breast; 15 FR; 08/03/18 1050 by Self, Urban #3; 05/06/19 (not present upon admisspatricio June RN Drain to pacu); 1443 05/06/19 1443 by Adrienne Cheung RN Wounds 08/03/18; 1127; Right; Breast; Surgical 08/03/18 1127 by Self, (NOT for Incision; 05/06/19 (not present upon Antoine doty RN Pressure admission to pacu); 1443; T HERABOND, Injuries) TEGADERM, POST OP BRA 05/06/19 1441 by Adrienne Cheung RN Dinh 08/03/18; 1135; Left; Breast; 15 FR; #1 ; 08/03/18 1135 by [facility], Urban 05/06/19 (not present upon admission to Shaylee RN Drain pacu); 1441 05/06/19 1441 by Adrienne Cheung RN Dinh 08/03/18; 1137; Left; Breast; 15 FR; #2 ; 08/03/18 1137 by [facility], Urban 05/06/19 (not present upon admission to Shaylee RN Drain pacu); 1441 05/06/19 1444 by Adrienne Cheung RN Peripheral 03/28/19; 1145; RN; R; Forearm; 20 G; 03/28/19 1145 by Sy, IV Lidocaine Prep; 1; 05/06/19 (not presen guy Gay RN upon admission to pacu); 1444 03/28/19 1325 by Ramon Nielsen CRNA [place] 03/28/19; 1211; Mask ventilation not 1 05/28/18 1211 by ic Airway attempted (0); Unique; 4; 1 insertion Ramon Nielsen, PRE PAROLE COUNSELING AIDE attempt; Auscultation, End-tidal CO2; 03/28/19; 1325 05/06/19 1442 by Adrienne Cheung RN Wounds [...] RN Pressure admission to pacu); 1443 Injuries) documented in this encounter Social History Date [...] OR Notes * Anesthesia Postprocedure Evaluation - Isacc Lutz MD - 03/28/2019 5:39 PM MEDICAL STAFF SERVICES MANAGER Post-Anesthesia Evaluation Name: Caridad Schaeffer : 1960 Age: 59 y.o. Sex: female Procedure Date: 03/28/2019 Procedure(s) (LRB): REVISION RECONSTRUCTED BREAST (Bilateral) Surgeon: Surgeon(s): Yoon Ch MD Biggs, Jennifer, PA Post-Anesthesia Vitals BP: 137/80 (03/28 1452) Temp: 36.5 C (97.7 F) (03/28 1452) Pulse: 91 (03/28 1452) Respirations: 17 PER MINUTE (03/28 1452) SpO2: 98 % (03/28 1452) SpO2 Pulse: 88 (03/28 1452) Height: 175.3 cm (69") (03/28 1116) Vitals Value Taken Time BP 137/80 03/28/2019 2:52 PM Temp 36.5 C (97.7 F) 03/28/2019 2:52 PM Pulse 91 03/28/2019 2:52 PM Respirations 17 PER MINUTE 03/28/2019 2:52 PM SpO2 98 % 03/28/2019 2:52 PM Post Anesthesia Evaluation Note Evaluation location: pre/post Patient participation: recovered; patient participated in evaluation Level of consciousness: alert Pain score: 4 Pain management: adequate Hydration: normovolemia Temperature: 36.0C - 38.4C Airway patency: adequate Perioperative Events Post-op nausea and vomiting: no PONV Postoperative Status Cardiovascular status: hemodynamically stable Respiratory status: spontaneous ventilation Perioperative Events Perioperative Event: No Emergency Case Activation: No CAL STAFF SERVICES MANAGER * Anesthesia Preprocedure Evaluation - Isacc Welch MD - 03/28/2019 11:40 AM MEDICAL STAFF SERVICES MANAGER Anesthesia Pre-Procedure Evaluation Name: Caridad Schaeffer : 1960 Age: 59 y.o. Sex: female Procedure Date: 03/28/2019 Procedure: Procedure(s) with comments: FAT GRAFTING TO BILATERAL RECONSTRUCTED BREAST - CASE LENGTH 1.5 HOURS REVISION RECONSTRUCTED BREAST Physical Assessment Vital Signs (last filed in past 24 hours): BP: 130/70 (03/28 1123) Temp: 36.7 C (98 F) (03/28 1123) Pulse: 75 (03/28 1123) Respirations: 16 PER MINUTE (03/28 1123) SpO2: 98 % (03/28 1123) Height: 175.3 cm (69") (03/28 1116) Weight: 94.8 kg (209 lb) (03/28 1116) Patient History No Known Allergies Current Medications [...] Take 5,000 Units by mouth kobe ly. cyanocobalamin (vitamin B-12) (VITAMIN B-12) 5,[address] under tongue. exemestane (AROMASIN) 25 mg tab Take one tablet by mouth daily. Take after a anastasia l. famotidine (PEPCID PO) Take by mouth twice daily. fluoxetine (PROZAC) 20 mg capsule Take 20 mg by mouth daily. glucosam/chond-msm1/C/williams/bor ([id number]-RHTVN-SCA COMPLEX PO) Take 1 tablet by mouth daily. lidocaine/prilocaine (EMLA) 2.5/2.5 % topical cream Apply topically to affected area as Needed. Apply to port a cath site about 30 - 45 min before access. ondansetron (ZOFRAN) 4 mg tablet Take one tablet by mouth every 8 hours as neede d for Nausea or Vomiting. other medication Take 1 Dose by mouth daily. Vibe, energy supplement pyridoxine (VITAMIN B-6) 25 mg tab Take 100 mg by mouth three times daily. vitamins, multi w/minerals 27-0.4 mg tab Take 1 tablet by mouth daily. Review of Systems/Medical History Patient summary reviewed Nursing notes reviewed Pertinent labs reviewed PONV Screening: Female gender and Non-smoker No history of anesthetic complications No family history of anesthetic complications Airway - negative Pulmonary - negative Cardiovascular Recent diagnostic studies: echocardiogram Rest Echo: [...] No hypertension, No valvular problems/murmurs No past OR, No dysrhythmias No angina No indications/hx of CHF No orthopnea Pt denies any h/o OR, CHF or significant arrhythmias. Pt denies any CP or S OB with > 4 metabolic equivalents. GI/Hepatic/Renal - negative Neuro/Psych Psychiatric history Depression Anxiety Musculoskeletal - negative Endocrine/Other Malignancy (breast cancer) Obesity Constitution - negative Physical Exam Airway Findings Mallampati: II TM distance: >3 FB Neck ROM: full Mouth opening: good Airway patency: adequate Dental Findings: Negative Cardiovascular Findings: Rhythm: regular Rate: normal Pulmonary Findings: Negative Abdominal Findings: Negative Neurological Findings: Negative Diagnostic Tests Hematology: Lab Results Component Value Date HGB 11.8 02/24/2019 HCT 35.2 02/24/2019 PLTCT 240 02/24/2019 WBC 4.7 02/24/2019 NEUT 52 02/24/2019 ANC 2.50 02/24/2019 ALC 1.70 02/24/2019 IRENE 9 02/24/2019 AMC 0.40 02/24/2019 EOSA 2 02/24/2019 ABC 0.00 02/24/2019 MCV 85.1 02/24/2019 MCH 28.6 02/24/2019 MCHC 33.6 02/24/2019 MPV 6.7 02/24/2019 RDW 14.6 02/24/2019 General Chemistry: Lab Results Component Value Date NA 139 02/24/2019 K 4.0 02/24/2019 CL 107 02/24/2019 CO2 26 02/24/2019 GAP 6 02/24/2019 BUN 13 02/24/2019 CR 0.72 02/24/2019 GLU 75 02/24/2019 CA 9.4 02/24/2019 ALBUMIN 4.4 02/24/2019 TOTBILI 0.3 02/24/2019 Coagulation: Lab Results Component Value Date PTT 28.3 07/14/2018 INR 1.0 07/14/2018 Anesthesia Plan ASA score: 2 Plan: general Induction method: intravenous NPO status: acceptable Informed Consent Anesthetic plan and risks discussed with patient. Use of blood products discussed with patient Plan discussed with: PRE PAROLE COUNSELING AIDE, surgeon/proceduralist and anesthesiologist. Comments: (Risks of GA with LMA/OETT including sore throat, oral/dental injury, allergic reactions, PONV, aspiration, respiratory failure, OR, CVA discussed wit h patient who reports understanding and consents to anesthetic plan. ) CAL STAFF SERVICES MANAGER documented in this encounter Plan of Treatment Not on filedocumented as of this encounter Goals Goal Patient Associated Recent Progress Patient-Stat Aut hor Goal Type Problems ed? [facility] No Erna Rincon RN documented as of this encounter Visit Diagnoses Not on filedocumented in this encounter Administered Medications Action Date Dose Rate Site Medication Order MAR Action 03/28/2019 12:17 PM MEDICAL STAFF SERVICES MANAGER 2 g ceFAZolin (ANCEF) injection Given INTRA-PROCEDURE MED, Starting Thu03/28/19 at 1217, Until 03/28/19 at 1329, Anesthesia Intra-op 03/28/2019 12:18 PM MEDICAL STAFF SERVICES MANAGER 4 mg dexamethasone (DECADRON) injection Given Intravenous, INTRA-PROCEDURE MED, Starting 03/28/19 at 1218, Until Mo n 03/28/19 at 1329, Anesthesia Intra-op 03/28/2019 12:22 PM MEDICAL STAFF SERVICES MANAGER 50 mcg fentaNYL citrate PF (SUBLIMAZE) Given injection INTRA-PROCEDURE MED, Starting Thu03/28/19 at 1210, Until Thu03/28/19 at 1329, Anesthesia Intra-op 50 mcg Given 03/28/2019 12:10 PM MEDICAL STAFF SERVICES MANAGER 03/28/2019 12:06 PM MEDICAL STAFF SERVICES MANAGER lactated ringers infusion Given - New 1,000 mL, Intravenous, at 20 mL/hr, Bag CONTINUOUS, Starting Thu03/28/19 at 1130, Until Thu03/28/19 at 1709, Pre-O p 1,000 mL 20 mL/hr Given - New Bag 03/28/2019 11:40 AM MEDICAL STAFF SERVICES MANAGER 03/28/2019 12:10 PM MEDICAL STAFF SERVICES MANAGER 50 mg lidocaine (PF) injection Given INTRA-PROCEDURE MED, Starting Thu03/28/19 at 1210, Until Thu03/28/19 at 1329, Anesthesia Intra-op 03/28/2019 12:04 PM MEDICAL STAFF SERVICES MANAGER 2 mg midazolam (VERSED) injection Given Intravenous, INTRA-PROCEDURE MED, Starting Thu03/28/19 at 1204, Until Mo n 03/28/19 at 1329, Anesthesia Intra-op 03/28/2019 1:23 PM MEDICAL STAFF SERVICES MANAGER 4 mg ondansetron (ZOFRAN) injection Given Intravenous, INTRA-PROCEDURE MED, Starting Thu03/28/19 at 1323, Until Mo n 03/28/19 at 1329, Anesthesia Intra-op 03/28/2019 12:54 PM MEDICAL STAFF SERVICES MANAGER 100 mcg phenylephrine in NS injection syringe Given Intravenous, INTRA-PROCEDURE MED, Starting Thu03/28/19 at 1254, Until Mo n 03/28/19 at 1329, Anesthesia Intra-op 03/28/2019 12:10 PM MEDICAL STAFF SERVICES MANAGER 200 mg propofol (DIPRIVAN) injection Given INTRA-PROCEDURE MED, Starting Thu03/28/19 at 1210, Until Thu03/28/19 at 1329, Anesthesia Intra-op documented in this encounter
--- OUTSIDE RECORDS SUMMARY | 2019-05-15 23:38 | XMS REPORT | Encounter Summary ---
Author Author [facility] Organization [facility] Address Unknown Phone Unavailable Care Team Providers Care Duster Tender Name Role Phone Meghan Del Rosario MD PCP Reason for Visit * Treatment (Routine) Referred By Contact Referred To Contact Status Reason Specialty Diagnoses / [place] [address] [place] [phone] [place] [address] [place] [phone] Authorized Hematology & Diagnoses Oncology / Malignant neoplasm Hematology and of upper-inner Oncology quadrant of left female breast (HCC) Estrogen receptor positive status (ER+) P rocedures trastuzumab (HERCEPTIN) Encounter Details Care Team Description Date Type Department Arin Styles APRN [address] [place] [address] [phone] 04/07/2019 [facility] [address] [place] [phone] Social History Date Tobacco Use Types Packs/Day [...] as of this encounter Discharge Instructions * Patient Instructions* Uma Bartholomew RN - 04/07/2019 10:15 AM PACKAGING DESIGNER Call Immediately to report the following: Uncontrolled nausea and/or vomiting, uncontrolled pain, or unusual bleeding. Temperature of 100.4 F or greater and/or any sign/symptom of infection (redness, warmth, tenderness) Painful mouth or difficulty swallowing Red, cracked, or painful hands and/or feet Diarrhea Swelling of arms or legs Rash Important Phone Numbers: [facility] Main Number (answered 24 hours a day) [phone] Cancer Center Scheduling (appointments) [phone] OR [phone] Cancer Action (for nutritional supplements) [phone] Port Maintenance - If you have a port, it should be flushed every 6-8 weeks when not in use. Please check with your MD, nurse, or the television repairman. AGING DESIGNER documented in this encounter Medications at Time [...] B-12) (VITAMIN B-12) tongue. 5,000 mcg subl 02/24/2019 exemestane (AROMASIN) 25 Take one 90 tablet 3 mg tab tablet by mouth daily. Take after a meal. famotidine (PEPCID PO) Take by 0 mouth twice daily. 06/01/2018 fluoxetine (PROZAC) 20 mg Take 20 mg by 0 capsule mouth daily. 09/02/2018 lidocaine/prilocaine Apply 30 g 0 (EMLA) [...] mg tab by mouth three times daily. vitamins, multi Take 1 tablet 0 w/minerals 27-0.4 mg tab by mouth daily. 04/13/2019 glucosam/chond-msm1/C/man Take 1 tablet 0 g/bor by mouth ([id number] daily. COMPLEX PO) documented as of this encounter Progress Notes * Uma Bartholomew, EBONI - 04/07/2019 12:22 PM PACKAGING DESIGNER Labs drawn from port without difficulties. She states that she is doing well, no new issues. She was seen by LETTER STAMPING MACHINE OPERATOR Arin Styles. CHEMO NOTE Verified chemo consent signed and in chart. Verified initiate chemo order in O2 Blood return positive via: Port (Power Port) BSA and dose double checked (agree with orders as written) with: yes Trishna B. RN Labs/applicable tests checked: CBC, Comprehensive Metabolic Panel (CMP) and Echo Chemo regime: Herceptin C7 D1 Rate verified and armband double checkwith second RN: yes Patient education offered and stated understanding. Denies questions at this nicolas maxim Tolerated treatment well. Discharged in good condition. AGING DESIGNER documented in this encounter Miscellaneous Notes * Addendum Note - Melani Martinez - 04/11/2019 2:11 PM PACKAGING DESIGNER Encounter addended by: Melani Martinez on: 04/11/2019 2:11 PM Actions taken: Charge Capture section accepted AGING DESIGNER documented in this encounter Plan of Treatment Not on filedocumented as of this encounter Goals Goal Patient Associated Recent Progress Patient-Stat Aut hor Goal Type Problems ed? [facility] No Erna Rincon RN documented as of this encounter Visit Diagnoses Diagnosis Malignant neoplasm of left breast in fe male, estrogen receptor positive, unspecified site of breast (HCC) - Primary documented in this encounter Administered Medications Action Date Dose Rate Site Medication Order MAR Action 04/07/2019 12:18 PM PACKAGING DESIGNER 500 Units heparin lock flush PF syringe 500 Units Given 500 Units, Flush, ONCE, 1 dose, Humaira 04/07/19 at 1200, NOTE: This is a HIGH ALERT Medication., 04/07/2019 11:45 AM PACKAGING DESIGNER 558 mg 553.1 mL/hr trastuzumab (HERCEPTIN) 558 mg in sodium Given - New chloride 0.9% (NS) 276.572 mL IVPB Bag 558 mg (6 mg/kg 93 kg Treatment plan recorded weight), Intravenous, 276.572 mL, Administer ove r 0.5 Hours, ONCE, 1 dose, Humaira 04/07/19 a t 1200, NOTE: This is a HIGH ALERT Medication., documented in this encounter
--- OUTSIDE RECORDS SUMMARY | 2019-05-15 23:38 | XMS REPORT | Encounter Summary ---
Author Author [facility] Organization [facility] Address Unknown Phone Unavailable Care Team Providers Care Social Work Assistant Name Role Phone Meghan Del Rosario MD PCP Reason for Visit * Reason Comments Heme/Onc Care * Treatment (Routine) Referred By Contact Referred To Contact Status Reason Specialty Diagnoses / [place] [address] [place] [phone] [place] [address] [place] [phone] Authorized Hematology & Diagnoses Oncology / Malignant neoplasm Hematology and of upper-inner Oncology quadrant of left female breast (HCC) Estrogen receptor positive status (ER+) P rocedures trastuzumab (HERCEPTIN) Encounter Details Care Team Description Date Type Department Arin Styles APRN [address] [place] [address] [phone] Malignant neoplasm of upper-inner quadra nt of left breast in female, estrogen receptor positive (HCC) 04/07/2019 Office Visit [facility] [address] [place] [phone] Social History Date Tobacco Use Types Packs/Day [...] Signs Reading Time Taken Comments Vital Sign 119/78 04/07/2019 10:43 AM SECURITY RESEARCHER Blood Pressure 77 04/07/2019 10:43 AM SECURITY RESEARCHER Pulse 36.8 C (98.2 F) 04/07/2019 10:43 AM SECURITY RESEARCHER Temperature 18 04/07/2019 10:43 AM SECURITY RESEARCHER Respiratory Rate 98% 04/07/2019 10:43 AM SECURITY RESEARCHER Oxygen Saturation - - Inhaled Oxygen Concentration 94.3 kg (208 lb) 04/07/2019 10:43 AM SECURITY RESEARCHER Weight 175.3 cm (5' 9") 04/07/2019 10:43 AM SECURITY RESEARCHER Height 30.72 04/07/2019 10:43 AM SECURITY RESEARCHER Body Mass Index documented in this encounter [...] as of this encounter Progress Notes * Arin Styles APRN - 04/07/2019 11:00 AM SECURITY RESEARCHER Name: Caridad Schaeffer : 1960 AGE: 59 y.o . DATE OF SERVICE: 04/07/2019 Subjective: Reason for Visit: Heme/Onc Care Caridad Schaeffer is a 59 y.o. female. Cancer Staging Malignant neoplasm of left breast in female, estrogen receptor positive (HCC) Staging form: Breast, AJCC 8th Edition - Clinical stage from 07/09/2018: Stage IA (cT1c, cN0, cM0, G2, ER: Positive, DC: Positive, HER2: Positive) - Signed by Jazmín Stark PA-C on 07/14/2018 - Pathologic stage from 08/12/2018: Stage IA (pT1c, pN0(sn), cM0, G3, ER+, DC+, H ER2-) - Signed by Jazmín Stark PA-C on 08/12/2018 History of Present Illness Left breast cancer. 1. Bilateral screening mammogram on 06/23/2018 that showed a left breast density in the retroareolar area volar and slightly medial area. 2.07/01/2018 left breast ultrasound showed a 14 mm x 9 mm x 11 mm lesion susp icious. 3.Diagnostic mammogram showed persistent irregular density. 4. Biopsy that showedinvasive ductal carcinoma, grade 2. The breast progno stic profile showed ER 95%, DC 55%, HER-2 was 2+ by IHC but positive by FISH. 5. Bilateral Mastectomy by Dr. House 08/03/[address] Sun massey 6. Pathology: RIGHT mastectomy - benign LEFT mastectomy -IDC, grad e III,1.7cm; margins clear 0/4 nodes; er/pr positive, her 2 negative, ki 67 20 % 7. 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 8.Weekly Taxol with Herceptin started 09/02/2018-11/17/18 and thencontinued on Herceptin maintenance starting 12/02/2018; femara 12/02/18 Past medical history: Vasomotor symptoms. Past surgical history, tonsillectomy and knee meniscus surgery. Social history: She lives with her denies any smoking or drug abuse. 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 Interval History: Caridad presents for follow-up of her breast cancer. She is currently doing wel l but is having some neuropathy. although improved from her last visit with Dr. Christie. She states that she feels better on aromasin than femara. She had breast revision on 03/28/[address] Dotson and is recovering well. Review of Systems Objective: acetaminophen (TYLENOL) 325 mg tablet Take two [...] tablet Take 5,000 Units by mouth daily. cyanocobalamin (vitamin B-12) (VITAMIN B-12) 5,[address] under ton emily. exemestane (AROMASIN) 25 mg tab Take one tablet by mouth daily. Take after a meal. famotidine (PEPCID PO) Take by mouth twice daily. fluoxetine (PROZAC) 20 mg capsule Take 20 mg by mouth daily. glucosam/chond-msm1/C/williams/bor ([id number]-OQUZV-VAE COMPLEX PO) Take 1 tab let by mouth daily. lidocaine/prilocaine (EMLA) 2.5/2.5 % [...] tab Take 1 tablet by mouth daily. Vitals: 04/07/19 1043 BP: 119/78 Pulse: 77 Resp: 18 Temp: 36.8 C (98.2 F) TempSrc: Oral SpO2: 98% Weight: 94.3 kg (208 lb) Height: 175.3 cm (69") Body mass index is 30.72 kg/m. Pain Score: Three Pain Loc: Breast(reconstructive surgery last week) Pain Addressed: Current regimen working to control pain. Patient Evaluated for a Clinical Trial: No treatment clinical trial available fo r this patient. Eastern Cooperative Oncology Group performance status is 0, Fully active, able t o carry on all pre-disease performance without restriction.. Physical Exam Constitutional: She is oriented to person, place, and time. She appears well-dev eloped and well-nourished. HENT: Head: Normocephalic. Mouth/Throat: Oropharynx is clear and moist. Eyes: Pupils are equal, round, and reactive to light. Cardiovascular: Normal rate and regular rhythm. Pulmonary/Chest: Effort normal and breath sounds normal. Abdominal: Soft. She exhibits no mass. Musculoskeletal: Normal range of motion. Lymphadenopathy: She has no cervical adenopathy. Neurological: She is alert and oriented to person, place, and time. Skin: No rash noted. Psychiatric: She has a normal mood and affect. Her behavior is normal. Nursing note and vitals reviewed. Assessment and Plan: Left breast cancer ER/DC positive, HER-2 2+ by IHC and positive by FISH on biops y. Definitive pathology showed a 1.7 cm tumor ER/DC positive, HER-2/zuly negati ve. We will continue Herceptin.Continue Aromasin. Neuropathy. Improved. RITY RESEARCHER documented in this encounter Plan of Treatment Not on filedocumented as of this encounter Goals Goal Patient Associated Recent Progress Patient-Stat Aut hor Goal Type Problems ed? [facility] Erna Rene RN documented as of this encounter Visit Diagnoses Diagnosis Malignant neoplasm of upper-inner quadr ant of left breast in female, estrogen receptor positive (HCC) documented in this encounter
--- OUTSIDE RECORDS SUMMARY | 2019-05-15 23:38 | XMS REPORT | Encounter Summary ---
Author Author [facility] Organization [facility] Address Unknown Phone Unavailable Care Team Providers Care Cbx Operator Name Role Phone Meghan Del Rosario MD PCP Encounter Details Care Team Description Date Type Department Yoon Ch MD [address] [place] [address] Encounter for breast reconstruction foll owing mastectomy (Primary Dx); Malignant neoplasm of left breast in female, estrogen receptor positive, unspecified site of breast (HCC) 03/02/2019 Prep for Case [facility] [address] [place] [address] Social History Date Tobacco Use [...] Status Date of Assessment Functional Status Response 03/01/2019 Does the patient have a hearing impairment: No 03/01/2019 Does the patient have a visual impairment: Yes 03/01/2019 Does the patient have impaired ambulation: No 03/01/2019 Does the patient have an activity of daily living No (ADL) impairment: 03/01/2019 Does the patient have an instrumental activity of No daily living (IADL) impairment: Date of Assessment Cognitive Status Response 03/01/2019 Does the patient have a cognitive impairment: No documented as of this encounter Plan of Treatment Not on filedocumented as of this encounter Goals Goal Patient Associated Recent Progress Patient-Stat Aut hor Goal Type Problems ed? [facility] No Erna Rincon RN documented as of this encounter Visit Diagnoses Diagnosis Encounter for breast reconstruction fol lowing mastectomy - Primary Malignant neoplasm of left breast in fe male, estrogen receptor positive, unspecified site of breast (HCC) documented in this encounter
--- OUTSIDE RECORDS SUMMARY | 2019-05-15 23:38 | XMS REPORT | Encounter Summary ---
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 [facility] No Erna Rincon RN documented as of this encounter Visit Diagnoses Diagnosis Malignant neoplasm of upper-inner quadr ant of left breast in female, estrogen receptor positive (HCC) - Primary Encounter for breast reconstruction fol lowing mastectomy documented in this encounter
--- OUTSIDE RECORDS SUMMARY | 2019-05-15 23:38 | XMS REPORT | Encounter Summary ---
Author Author [facility] Organization [facility] Address Unknown Phone Unavailable Care Team Providers Care Early Years Teacher Name Role Phone Meghan Del Rosario MD PCP Reason for Visit * Reason Comments Cancer Encounter Details Care Team Description Date Type Department Jazmín Stark PA-C [address] [place] [address] [phone] At risk for lymphedema 03/01/2019 Nurse Only [facility] [address] [place] [address] Social History Date Tobacco Use Types Packs/Day [...] as of this encounter Progress Notes * Laverne Miller RN - 03/01/2019 3:00 PM CDT Reviewed BIS testing results from today Results 5.5 (baseline 2.6) WNL less than 3 standard deviation increase from ba seline. Notified patient via MyChart result was normal and to continue with routine fol low up as scheduled. Provided clinic contact information for any questions or c oncerns. documented in this encounter Plan of Treatment Not on filedocumented as of this encounter Goals Goal Patient Associated Recent Progress Patient-Stat Aut hor Goal Type Problems ed? [facility] No Erna Rincon, EBONI documented as of this encounter Visit Diagnoses Diagnosis At risk for lymphedema Other specified conditions influencing health status documented in this encounter
--- OUTSIDE RECORDS SUMMARY | 2019-05-15 23:38 | XMS REPORT | Encounter Summary ---
Author Author [facility] Organization [facility] Address Unknown Phone Unavailable Care Team Providers Care Kiln Burner Helper Name Role Phone Meghan Del Rosario MD [...] of breast (HCC) [C50.912, Z17.0] P rocedures MA TISSUE GRAFTS OTHER MA REVISION RECONSTRUCTED BREAST FAT GRAFTING TO BILATERAL RECONSTRUCTED BREAST REVISION RECONSTRUCTED BREAST Encounter Details Care Team Description Date Type Department Yoon Ch MD [address] [place] [address] Encounter for breast reconstruction foll owing mastectomy 03/28/2019 [facility] [address] [address] Social History Date Tobacco Use Types Packs/Day [...] Signs Reading Time Taken Comments Vital Sign 137/80 03/28/2019 2:52 PM HYDROGEN PLANT OPERATIONS MANAGER Blood Pressure 91 03/28/2019 2:52 PM HYDROGEN PLANT OPERATIONS MANAGER Pulse 36.5 C (97.7 F) 03/28/2019 2:52 PM HYDROGEN PLANT OPERATIONS MANAGER Temperature - - Respiratory Rate 98% 03/28/2019 2:52 PM HYDROGEN PLANT OPERATIONS MANAGER Oxygen Saturation - - Inhaled Oxygen Concentration 94.8 kg (209 lb) 03/28/2019 11:16 AM HYDROGEN PLANT OPERATIONS MANAGER Weight 175.3 cm (5' 9") 03/28/2019 11:16 AM HYDROGEN PLANT OPERATIONS MANAGER Height 30.86 03/28/2019 11:16 AM HYDROGEN PLANT OPERATIONS MANAGER Body Mass Index documented in this [...] this encounter Discharge Instructions * Patient Instructions* Deidra Chapa, EBONI - 03/28/2019 1:19 PM HYDROGEN PLANT OPERATIONS MANAGER Discharge Instructions: After Your Surgery Youve just had surgery. During surgery, you were given medicine called anesth esia to keep you relaxed and free of pain. After surgery, you may have some pain or nausea. This is common. Here are some tips for feeling better and getting we ll after surgery. Stay on schedule with your medicine. Going home Your healthcare provider will show you how to take care of yourself when you go home. He or she will also answer your questions. Have an adult family member or friend drive you home. For the first 24 hours after your surgery: Don't drive or use heavy equipment. Don't make important decisions or sign legal papers. Don't drink alcohol. Have someone stay with you, if needed. He or she can watch for problems and h elp keep you safe. Be sure to go to all follow-up visits with your healthcare provider. And rest af ter your surgery for as long as your healthcare provider tells you to. Coping with pain If you have pain after surgery, pain medicine will help you feel better. Take it as told, before pain becomes severe. Also, ask your healthcare provider or phar macist about other ways to control pain. This might be with heat, ice, or relaxa tion. And follow any other instructions your surgeon or nurse gives you. Tips for taking pain medicine To get the best relief possible, remember these points: Pain medicines can upset your stomach. Taking them with a little food may hel p. Most pain relievers taken by mouth need at least 20 to 30 minutes to start to work. Don't wait till your pain becomes severe before you take your medicine. Try t o time your medicine so that you can take it before starting an activity. This m ight be before you get dressed, go for a walk, or sit down for dinner. Constipation is a common side effect of pain medicines. Call your healthcare provider before taking any medicines such as laxatives or stool softeners to hel p ease constipation. Also ask if you should skip any foods. Drinkinglots of fl uids andeating foodssuch as fruits and vegetables that are high in fiber can also help. Remember, don't take laxatives unless your surgeon has prescribed th em. Drinking alcohol and taking pain medicine can cause dizziness and slow your b reathing. It can even be deadly. Don't drink alcohol while taking pain medicine. Pain medicine can make you react more slowly to things. Don't drive or run Fast Drinks while taking pain medicine. Your healthcare providermay tell you to take acetaminophen to help ease your p ain. Ask him or her how much you are supposed to take each day. Acetaminophen or other pain relievers may interact with your prescription medicines or other ove b-lgp-zmbzivv (OTC) medicines. Some prescription medicines have acetaminophen an d other ingredients.Using both prescription and OTC acetaminophenfor painc an cause you to overdose. Readthe labels on your OTC medicineswith care. Thi s will help youto clearly know the list of ingredients, how much to take, and anywarnings. It may also help you not take too muchacetaminophen.If you rubin ve questions or don't understand the information, ask your pharmacist or healthc are provider to explain it to you before you take the OTC medicine. Managing nausea Some people have an upset stomach after surgery. This is often because of anesth esia, pain, or pain medicine, or the stress of surgery. These tips will help you handle nausea and eat healthy foods as you get better. If you were on a special food plan before surgery, ask your healthcare provider if you should follow it while you get better. These tips may help: Don't push yourself to eat. Your body will tell you when to eat and how much. Start off with clear liquids and soup. They are easier to digest. Next try semi-solid foods, such as mashed potatoes, applesauce, and gelatin, as you feel ready. Slowly move to solid foods. Dont eat fatty, rich, or spicy foods at first. Don't force yourself to have 3 large meals a day. Instead eat smaller amounts more often. Take pain medicines with a small amount of solid food, such as crackers or to ast, to prevent nausea. When to call your healthcare provider Call your healthcare provider if: You still have intolerable pain an hour after taking medicine. The medicine m ay not be strong enough. You feel too sleepy, dizzy, or groggy. The medicine may be too strong. You have side effects such as nausea or vomiting, or skin changes such as smith h, itching, or hives.Your healthcare provider may suggest other medicines to c ontrol side effects. Rash, itching, or hives may mean you have an allergic reaction. Report this righ t away. If you have trouble breathing or facial swelling, call 911 right away. If you have obstructive sleep apnea You were given anesthesia medicine during surgery to keep you comfortable and fr ee of pain. After surgery, you may have more apnea spells because of this medici ne and other medicines you were given. The spells may last longer than usual. At home: Keep using the continuous positive airway pressure (CPAP) device when you sle ep. Unless your healthcare provider tells you not to, use it when you sleep, day or night. CPAP is a common device used to treat obstructive sleep apnea. Talk with your provider before taking any pain medicine, muscle relaxants, or sedatives. Your provider will tell you about the possible dangers of taking the se medicines. Date Last Reviewed: 07/16/201819996902-2162 [employer]. [address] [place] [address], [place], [place] [address]. All rights reserved. This information is not intended as a substitute for pro fessional medical care. Always follow your healthcare professional's instruction s. OGEN PLANT OPERATIONS MANAGER * Pre-Anesthesia Patient Instructions* Bijal Dutton RN - 03/10/2019 3:36 PM CDT GENERAL INFORMATION Before you come to the hospital Make arrangements for a responsible adult to drive you home and stay with you for 24 hours following surgery. Bath/Shower Instructions Take a bath or shower with antibacterial soap the night before or the morning of your procedure. Use clean towels. Put on clean clothes after bath or shower. Avoid using lotion and oils. If you are having surgery above the waist, wear a shirt that fastens up the f ront. Sleep on clean sheets if bath or shower is done the night before procedure. Leave money, credit cards, jewelry, and any other valuables at home. [facility] is not responsible for the loss or breakage of persona M86 Security items. Remove nail bahraini, makeup and all jewelry (including piercings) before comin g to the hospital. The morning of your procedure: brush your teeth and tongue do not smoke do not shave the area where you will have surgery What to bring to the hospital ID/ Insurance Card Tool Repairer Bench card Official documents for legal guardianship Copy of your Living Will, Advanced Directives, and/or Durable Power of Attorn ey Small bag with a few personal belongings Walker,cane, or motorized scooter Cases for glasses/hearing aids/contact lens (bring solutions for contacts) Dress in clean, loose, comfortable clothing Eating or drinking before surgery Do not eat or drink anything after 11:00 p.m. the day before your procedure ( including gum, mints, candy, or chewing tobacco) OR follow the specific instruct ions you were given by your Surgeon. You may have WATER ONLY up to 2 hours before arriving at the hospital. Other instructions: Other instructions Notify your surgeon if: you become ill with a cough, fever, sore throat, nausea, vomiting or flu-like symptoms you have any open wounds/sores that are red, painful, draining, or are new si nce you last saw the doctor you need to cancel your procedure You will receive a call with your surgery arrival time from between 2:30pm an d 4:30pm the last business day before your procedure. If you do not receive a c all, please call [phone] before 4:30pm or [phone] after 4:30pm. Notify us at [facility]: if you need to cancel your procedure if you are going to be late Arrival at the [address] [address] Park in the Parking Garage, located directly across from the main entrance to the hospital. [employer] parking is available from 7 AM to 4 PM Thursday through Thursday. Enter through the ground floor [facility] entrance and check in at the Inf ormation Desk in the lobby. They will validate your parking ticket and direct you to the next location. * Pre-Anesthesia Medication Instructions* Bijal Dutton RN - 03/10/2019 3:42 PM CDT YOUR MEDICATIONS: acetaminophen (TYLENOL) 325 mg tablet Take two [...] capsule Take 20 mg by mouth daily. furosemide (LASIX) 20 mg tablet Take one tablet by mouth daily as needed. In dications: visible water retention glucosam/chond-msm1/C/williams/bor (PTYZNMADJCR-TQACT-PRN COMPLEX PO) Take 1 tab let by [...] tab Take 1 tablet by mouth daily. YOUR MEDICATION INSTRUCTIONS FOR SURGERY: Before surgery Stop the following vitamins, herbals, and natural supplements 14 days before anjelica rod: Multivitamins Energy Supplement Biotin Glucosamine Alpha Lipoic acid Stop the following medications 7 days before surgery: Anti-inflammatory medications such as ibuprofen (Advil, Motrin) and naproxen (Aleve) You may use acetaminophen (Tylenol) No Excedrin Migraine x 7 days prior to your procedure Aromasin: as directed by your oncologist Morning of surgery On the morning of surgery, do NOT take these medications: Remaining vitamins/supplements Ointments/creams/lotions Vitamin B 12 Vitamin B 6 Lasix On the morning of surgery, take ONLY these medications with a sip (1-2 ounces) o f water: Famotidine Alprazolam if needed Cetirizine Fluoxetine Other information Before surgery, please contact Bijal LYN, with any medicine updates or questions . E-mail: [email or web address] Before going home from the hospital, please ask your doctor when you should re-s tart your medicines that were stopped before surgery. documented in this encounter Medications at Time [...] Take 1 tablet 0 g/bor by mouth (EVBESAYNTGP-NXZLI-DGT daily. COMPLEX PO) documented as of this encounter Progress Notes * Bijal Dutton RN - 03/10/2019 3:57 PM CDT PAC Phone Triage Note: PAC phone triage completed for procedure on 03/28/19. Patient denies cardiac, pu lmonary or neurologic history. She denies chest pain, palpitations or SOA. She s tates she can climb 2 flights of steps and remain asymptomatic. Patient was advi sed to stop vitamins herbals and supplements 14 days prior to their procedure an d avoid NSAIDS 7 days prior. She was advised she may take Pepcid, Cetirizine, Fl uoxetine and if needed, Alprazolam with sips of water only on the DOS and may co ntinue sips until 2 hours prior to check in at Admissions. Pre op instructions c ompleted including NPO after 11 PM. Patient verbalized understanding of all inst ructions and will receive a copy via e mail with a map. No further questions at this time. documented in this encounter H&P Notes * Yoon Ch MD - 03/28/2019 11:31 AM HYDROGEN PLANT OPERATIONS MANAGER History and Physical Update Note Allergies: Patient has no known allergies. Lab/Radiology/Other Diagnostic Tests: 24-hour labs: No results found for this visit on 03/28/19 (from the past 24 nadiya r(s)). Point of Care Testing: (Last 24 hours): plan: bilateral breast fat grafting, revision to bilateral breasts. I have examined the patient, and there are no significant changes in their condi tion, from the previous H&P performed on 03/02/19. Yoon Ch MD Pager OGEN PLANT OPERATIONS MANAGER * Yoon Ch MD - 03/02/2019 9:00 AM CDT Subjective: History of Present Illness Caridad Schaeffer is a 59 y.o. female. Finished chemotherapy in November. Is here to discuss fat grafting. Is on Herceptin till August. Returned to work. Review of Systems Constitutional: Negative. HENT: Negative. Eyes: Negative. Respiratory: Negative. Cardiovascular: Negative. Gastrointestinal: Negative. Endocrine: Negative. Genitourinary: Negative. Musculoskeletal: Negative. Skin: Negative. Allergic/Immunologic: Negative. Neurological: Negative. Hematological: Negative. Psychiatric/Behavioral: Negative. Objective: acetaminophen (TYLENOL) 325 mg tablet Take two tablets by mouth every 6 hour s. Take as scheduled for 3 days following surgery, then as needed for pain after this. Do not exceed 4,000mg in a 24 hour period. ALPRAZolam (XANAX) 0.25 mg tablet Take 0.5 mg by mouth as Needed. aspirin/acetaminophen/caffeine (EXCEDRIN MIGRAINE PO) Take by mouth as Need ed. biotin 10,000 mcg TbDi Dissolve 1 tablet by mouth daily. cetirizine (ZYRTEC) 10 mg tablet Take 10 mg by mouth every morning. cholecalciferol(+) (VITAMIN D-3) 5,000 unit tablet Take 5,000 Units by mouth daily. diazePAM (VALIUM) 5 mg tablet Take one tablet by mouth every 6 hours as need ed (muscle spasm). Echinacea 400 mg cap Take 1 capsule by mouth daily. exemestane (AROMASIN) 25 mg tab Take one tablet by mouth daily. Take after a meal. famotidine (PEPCID PO) Take by mouth twice daily. fluoxetine (PROZAC) 20 mg capsule Take 20 mg by mouth daily. furosemide (LASIX) 20 mg tablet Take one tablet by mouth daily as needed. In dications: visible water retention glucosam/chond-msm1/C/williams/bor (JGAYUUGUYIT-QZJWV-CNZ COMPLEX PO) Take 1 tab let by mouth daily. lidocaine/prilocaine (EMLA) 2.5/2.5 % topical cream Apply topically to affe cted area as Needed. Apply to port a cath site about 30 - 45 min before access. other medication Take 1 Dose by mouth daily. Vibe, energy supplement vitamins, multi w/minerals 27-0.4 mg tab Take 1 tablet by mouth daily. Vitals: 03/02/19 0926 BP: 129/75 Pulse: 80 Weight: 95.6 kg (210 lb 12.8 oz) Height: 175.3 cm (69") Body mass index is 31.13 kg/m. Physical Exam Constitutional: She appears well-nourished. No distress. HENT: Head: Atraumatic. Eyes: Conjunctivae are normal. Neck: Neck supple. Cardiovascular: Normal rate. Pulmonary/Chest: Effort normal. Bilateral implants soft, good position. Upper pole concavity. Right breast has an inferior indentation from the time of the immediate reconstr uction. Abdominal: Soft. There is no tenderness. Extra-abdominal adiposity Neurological: She is alert. Skin: Left breast superior scar is wide. Psychiatric: She has a normal mood and affect. Her behavior is normal. Thought c ontent normal. Vitals reviewed. Assessment and Plan: Problem Deformity of Reconstructed Breast plan: bilateral breast fat grafting, revision to bilateral breasts. Will release the tethered scar on the right breast, also excise the left breast scar that is slightly wide. Explained risks: fat necrosis, loss of grafted fat, need for additional surgery. [place] fat from upper abdomen. surgery to be scheduled in March. Consent signed. ASPS consent given. Photos taken today. rx's given: cephalexin, zofran. Has leftover pain medication. Order a back up implant x 2. documented in this encounter Miscellaneous Notes * Care Plan - Deidra Chapa RN - 03/28/2019 1:45 PM HYDROGEN PLANT OPERATIONS MANAGER OGEN PLANT OPERATIONS MANAGER * Operative Report (Direct Entry) - Yoon Ch MD - 03/28/2019 1:10 PM HYDROGEN PLANT OPERATIONS MANAGER OPERATIVE REPORT Name: Caridad Schaeffer is a 59 y.o. female : 1960 MRN#: [id number] DATE OF OPERATION: 03/28/2019 Surgeon(s) and Role: * Yoon Ch MD - Primary * Elvia Waggoner PA - Assisting Preoperative Diagnosis: Encounter for breast reconstruction following mastectomy [Z42.1] Malignant neoplasm of left breast in female, estrogen receptor positive, unspeci fied site of breast (HCC) [C50.912, Z17.0] Post-op Diagnosis * Encounter for breast reconstruction following mastectomy [Z42.1] * Malignant neoplasm of left breast in female, estrogen receptor positive, un specified site of breast (HCC) [C50.912, Z17.0] Procedure(s) (LRB): REVISION RECONSTRUCTED BREAST (Bilateral) Anesthesia Type: General Description and Findings of Operative Procedure: 59 y/o with bilateral direct to implant breast reconstruction for breast cancer. Has indentations in the breast mound that are visible. She also has an indentation from the inferior pole mast ectomy scar on the right and an atrophic area of superior mastectomy incision on the left. I am excising these areas. Consent for fat grafting to bilateral reconstructed breasts. Donor site is the upper central abdomen. Prepped with chlorhexidine. Tumescent 900 mL Total aspirate 550 ml Total fat aspirate 500 mL Total fat prepared with Revolve is 280 mL. Fat grafted: right side 120 mL, left side 110 mL. Tumescent instilled, allowed to work for 10 minutes. Each liter tumescent is LR with 50 mL 1% lidocaine with epinephrine. Harvested with 4 mm cannula and processed through Revolve system. 280 mL available for grafting, of good quality. Injected using side-injecting Estrada cannulas. 120 mL injected to right breast, 120 mL to left breast. The fat was grafted into the superior pole and full anterior breast mound. The right breast inferior lateral skin was excised full thickness measuring 8 cm x 5 cm. The skin was discarded. I released the dermis to allow for a smoother c ontour closure. In doing so, I opened the implant pocket. I encountered an area of AlloDerm that was not incorporated along the inferior aspect and under the in cision. I scraped the AlloDerm with a curette as well as the mastecotmy flaps. T his area was irrigated. The seroma space was closed with 3-0 Monocryl, tacking t he capsule to the AlloDerm. The dermis was closed with 3-0 Monocryl and the skin was closed with 4-0 Monocryl. On the left breast the superior aspect of the incision was narrowly excised and the skin discarded. The dermis was closed with 3-0 Monocryl and the skin was willis sed with 4-0 Monocryl. Donor site closed with 4-0 Monocryl suture. This was a single umbilical incision . Breast incisions covered with Prineo tape. Dressed with abdominal binder and ABD's. Patient tolerated well. Extubated and taken to PACU in good condition. Estimated Blood Loss: No blood loss documented. Specimen(s) Removed/Disposition: * No specimens in log * Attestation: I personally performed this procedure with a Physician Clinical Engineering Manager as the manager surgical, because there was no qualified resident available. Yoon Ch MD Pager [phone] OGEN PLANT OPERATIONS MANAGER documented in this encounter Plan of Treatment Not on filedocumented as of this encounter Goals Goal Patient Associated Recent Progress Patient-Stat Aut hor Goal Type Problems ed? [facility] No Erna Rincon RN documented as of this encounter Procedures Comments Procedure Name Priority Date/Time Associated Diag nosis REVISION RECONSTRUCTED 03/28/2019 Encounter for breast BREAST 12:06 PM HYDROGEN PLANT OPERATIONS MANAGER reconstruction foll owing mastectomy Malignant neoplasm of left breast in female, estrogen receptor positive, unspecified site of breast (HCC) Special Needs 03/11 PER CHANGE FORM, CASE MOVED FROM 03/28 AT [facility] TO 03/28 [facility] - BP (1135) TELEMETRY STRIPS-SCAN 03/28/2019 12:00 AM HYDROGEN PLANT OPERATIONS MANAGER documented in this encounter Results * TELEMETRY STRIPS-SCAN (03/28/2019 12:00 AM HYDROGEN PLANT OPERATIONS MANAGER) Narrative Performed At This result has an attachment that is n ot available. Ordered by an unspecified provider. documented in this encounter Visit Diagnoses Diagnosis Encounter for breast reconstruction fol lowing mastectomy - Primary Deformity of reconstructed breast documented in this encounter Administered Medications Action Date Dose Rate Site Medication Order MAR Action 03/28/2019 11:49 AM HYDROGEN PLANT OPERATIONS MANAGER 1,000 mg acetaminophen (TYLENOL) tablet 1,000 mg Given 1,000 mg, Oral, ONCE, 1 dose, 03/28/19 at 1130, Pre-Op 03/28/2019 11:49 AM HYDROGEN PLANT OPERATIONS MANAGER 200 mg celecoxib (CELEBREX) capsule 200 mg Given 200 mg, Oral, ONCE, 1 dose, Thu 9 at 1130, Pre-Op diphenhydrAMINE (BENADRYL) injection 12.5 mg 12.5 mg, Intravenous, ONCE PRN, 1 dose, Starting Thu03/28/19 at 1310, Until Mo n 03/28/19 at 1709, Other..., nausea/vomiting, Third line agent, give if second line agent ineffective., PACU (only) 03/28/2019 2:01 PM HYDROGEN PLANT OPERATIONS MANAGER 25 mcg fentaNYL citrate PF (SUBLIMAZE) Given injection 25 mcg 25 mcg, Intravenous, EVERY 5 MIN PRN, Starting Thu03/28/19 at 1310, Until Mo n 03/28/19 at 1709, Pain Injectable, For Pain Score < 4, Maximum total dose of 200 mcg Hold for RR < 10, PACU (only) fentaNYL citrate PF (SUBLIMAZE) injection 50 mcg 50 mcg, Intravenous, EVERY 5 MIN PRN, Starting Thu03/28/19 at 1310, Until Mo n 03/28/19 at 1709, Pain Injectable, For Pain Score 4-6, Maximum total dose 200 mcg Hold if RR < 10, PACU (only) haloperidol (HALDOL) injection 1 mg 1 mg, Intravenous, ONCE PRN, 1 dose, Starting Thu03/28/19 at 1310, Until Mo n 03/28/19 at 1709, Other..., Nausea and Vomiting, First line agent. DO NOT ADMINISTER if given intraoperatively, PACU (only) 03/28/2019 12:06 PM HYDROGEN PLANT OPERATIONS MANAGER lactated ringers infusion Given - New 1,000 mL, Intravenous, at 20 mL/hr, Bag CONTINUOUS, Starting Thu03/28/19 at 1130, Until Thu03/28/19 at 1709, Pre-O p 1,000 mL 20 mL/hr Given - New Bag 03/28/2019 11:40 AM HYDROGEN PLANT OPERATIONS MANAGER 03/28/2019 11:40 AM HYDROGEN PLANT OPERATIONS MANAGER 0.1 mL lidocaine PF 1% (10 mg/mL) injection Given 0.1-2 mL 0.1-2 mL, Injection, NEEDED, Startin g Thu03/28/19 at 1116, Until Thu 9 at 1709, Other..., for IV insertion, Pre-Op metoclopramide (REGLAN) injection 10 mg 10 mg, Intravenous, ONCE PRN, 1 dose, Starting 03/28/19 at 1310, Until Mo n 03/28/19 at 1709, Other..., nausea/vomiting, Second line agent, giv e if first line agent ineffective. If not given in last six hours., PACU (only) 03/28/2019 1:42 PM HYDROGEN PLANT OPERATIONS MANAGER 10 mg oxyCODONE (ROXICODONE) tablet 5-10 mg Given 5-10 mg, Oral, ONCE PRN, 1 dose, Starting 03/28/19 at 1310, Until Mo n 03/28/19 at 1342, Pain PO, For Pain Score <4, PACU (only) documented in this encounter
--- OUTSIDE RECORDS SUMMARY | 2019-05-15 23:38 | XMS REPORT | Encounter Summary ---
Author Author [facility] Organization [facility] Address Unknown Phone Unavailable Care Team Providers Care [place] Or [place] Auditor Name Role Phone Meghan Del Rosario MD PCP Reason for Visit * Treatment (Routine) Referred By Contact Referred To Contact Status Reason Specialty Diagnoses / [place] [address] [place] [address] [place] [address] [place] [phone] Authorized Hematology & Diagnoses Oncology / Malignant neoplasm Hematology and of upper-inner Oncology quadrant of left female breast (HCC) Estrogen receptor positive status (ER+) P rocedures trastuzumab (HERCEPTIN) Encounter Details Care Team Description Date Type Department Arin Styles APRN [address] [place] [address] [phone] 04/07/2019 [facility] [address] [place] [address] Social History Date Tobacco Use Types Packs/Day [...] impairment: No documented as of this encounter Medications at Time of Discharge [...] Take 1 tablet 0 g/bor by mouth (UIWVYETKIEY-[id number]-ZTT daily. COMPLEX PO) documented as of this encounter Plan of Treatment Not on filedocumented as of this encounter Goals Goal Patient Associated Recent Progress Patient-Stat Aut hor Goal Type Problems ed? [facility] No Erna Rincon RN documented as of this encounter Procedures Comments Procedure Name Priority Date/Time Associated Diag nosis HC CBC W/ AUTOMATED DIFF Routine 04/07/2019 Malig nant neoplasm of 10:13 AM PROCESS ENGINEERING MANAGER left breast in female, estrogen receptor positive, unspecified site of breast (HCC) BARD1 gene mutation positive HC COMPREHENSIVE Routine 04/07/2019 Malignant thierry plasm of METABOLIC PANEL 10:13 AM PROCESS ENGINEERING MANAGER left breast in fema le, estrogen receptor positive, unspecified site of breast (HCC) BARD1 gene mutation positive documented in this encounter Results * COMPREHENSIVE METABOLIC PANEL (04/07/2019 10:13 AM PROCESS ENGINEERING MANAGER) Sodium 139 137 - 147 MMOL/L [facility] [...] >60 >60 mL/min [facility] Comment: [place] The eGFR is not validated f or use in drug dosing adjustments. Continue to use estimated creatinine clearance per dosing reference text. Please contact the Clinical Pharmacist for questions. eGFR >60 >60 mL/min [facility] [place] Comment: The eGFR is not validated for use in drug dosing adjustments. Continue to use estimated creatinine clearance per dosing reference text. Please contact the Clinical Pharmacist for questions. Specimen Blood Performing Organization Address City/State/Zipcode Ph one Number [facility] [address] [place] [address] * CBC AND DIFF (04/07/2019 10:13 AM PROCESS ENGINEERING MANAGER) White Blood 5.7 4.5 - 11.0 K/[facility] Cells [place] RBC 4.32 4.0 - 5.0 M/UL [facility] Hemoglobin 12.1 12.0 - 15.0 GM/DL [facility] Hematocrit 36.5 36 - 45 % [facility] [place] MCV 84.5 80 - 100 FL [facility] [place] MCH 28.0 26 - 34 PG [facility] [place] MCHC 33.2 32.0 - 36.0 G/DL [facility] [place] RDW 14.8 11 - 15 % [facility] [place] Platelet Count 333 150 - 400 K/[facility] [place] MPV 6.3 (L) 7 - 11 FL [facility] [place] Neutrophils 60 41 - 77 % [facility] [place] Lymphocytes 28 24 - 44 % [facility] [place] Monocytes 9 4 - 12 % [facility] [place] Eosinophils 2 0 - 5 % [facility] [place] Basophils 1 0 - 2 % [facility] [place] Absolute 3.50 1.8 - 7.0 K[facility] Neutrophil [place] Count Absolute Lymph 1.60 1.0 - 4.8 [facility] Count [place] Absolute 0.50 0 - 0.80 K[facility] Monocyte Count [place] Absolute 0.10 0 - 0.45 K/[facility] Eosinophil [place] Count Absolute 0.00 0 - 0.20 [facility] Basophil Count [place] Specimen Blood Performing Organization Address City/State/Zipcode Ph one Number [facility] [place] [address] [place] [phone] documented in this encounter Visit Diagnoses Diagnosis Malignant neoplasm of left breast in fe male, estrogen receptor positive, unspecified site of breast (HCC) BARD1 gene mutation positive documented in this encounter
--- OUTSIDE RECORDS SUMMARY | 2019-05-15 23:38 | XMS REPORT | Encounter Summary ---
Author Author [facility] Organization [facility] Address Unknown Phone Unavailable Care Team Providers Care Bioinformatics Team Member Name Role Phone Meghan Del Rosario MD PCP Reason for Visit * Reason Comments Follow Up Encounter Details Care Team Description Date Type Department Yoon Ch MD [address] [place] [address] Encounter for breast reconstruction foll owing mastectomy (Primary Dx); Deformity of reconstructed breast 03/02/2019 Office Visit [facility] [address] [place] [address] [address] [place] [address] Social History Date Tobacco Use [...] Signs Reading Time Taken Comments Vital Sign 129/75 03/02/2019 9:26 AM CDT Blood Pressure 80 03/02/2019 9:26 AM CDT Pulse - - Temperature - - Respiratory Rate - - Oxygen Saturation - - Inhaled Oxygen Concentration 95.6 kg (210 lb 12.8 oz) 03/02/2019 9:26 AM CDT Weight 175.3 cm (5' 9") 03/02/2019 9:26 AM CDT Height 31.13 03/02/2019 9:26 AM CDT Body Mass Index documented in this encounter [...] Progress Notes * Yoon Ch MD - 03/02/2019 9:00 [...] needed. In dications: visible water retention glucosam/chond-msm1/C/williams/bor ([id number]-LKX COMPLEX PO) Take 1 tab let by [...] of grafted fat, need for additional surgery. Alvarado fat from upper abdomen. surgery to be scheduled in March. Consent signed. ASPS consent given. Photos taken today. rx's given: cephalexin, zofran. Has leftover pain medication. Order a back up implant x 2. documented in this encounter Plan of Treatment Not on filedocumented as of this encounter Goals Goal Patient Associated Recent Progress Patient-Stat Aut hor Goal Type Problems ed? [facility] No Erna Rincon RN documented as of this encounter Visit Diagnoses Diagnosis Encounter for breast reconstruction fol lowing mastectomy - Primary Deformity of reconstructed breast documented in this encounter
--- OUTSIDE RECORDS SUMMARY | 2019-05-15 23:38 | XMS REPORT | Encounter Summary ---
Author Author [facility] Organization [facility] Address Unknown Phone Unavailable Care Team Providers Care Servicing Rep Name Role Phone Meghan Del Rosario MD [...] of breast (HCC) [C50.912, Z17.0] P rocedures AL TISSUE GRAFTS OTHER AL REVISION RECONSTRUCTED BREAST FAT GRAFTING TO BILATERAL RECONSTRUCTED BREAST REVISION RECONSTRUCTED BREAST Encounter Details Care Team Description Date Type Department Yoon Ch MD [address] [place], [place] [id number] [phone] REVISION RECONSTRUCTED BREAST 03/28/[address] [address] Social History Date Tobacco Use Types Packs/Day [...] Comments Vital Sign 137/80 03/28/2019 2:52 PM LUGGAGE LINER Blood Pressure 91 03/28/2019 2:52 PM LUGGAGE LINER Pulse 36.5 C (97.7 F) 03/28/2019 2:52 PM LUGGAGE LINER Temperature - - Respiratory Rate 98% 03/28/2019 2:52 PM LUGGAGE LINER Oxygen Saturation - - Inhaled Oxygen Concentration 94.8 kg (209 lb) 03/28/2019 11:16 AM LUGGAGE LINER Weight 175.3 cm (5' 9") 03/28/2019 11:16 AM LUGGAGE LINER Height 30.86 03/28/2019 11:16 AM LUGGAGE LINER Body Mass Index documented in this encounter [...] Deidra Chapa, EBONI - 03/28/2019 1:19 PM LUGGAGE LINER Discharge Instructions: After Your Surgery Youve just [...] slowly to things. Don't drive or run ma [place] while taking pain medicine. Your healthcare providermay tell you to take acetaminophen to help ease your p ain. Ask him or her how much you are supposed to take each day. Acetaminophen or other pain relievers may interact with your prescription medicines or other ove y-iyb-ylufwkh (OTC) medicines. Some prescription medicines have acetaminophen [...] taking the se medicines. Date Last Reviewed: 07/16/201819995548-7819 [employer]. [address] [place] [address] [phone]. All rights reserved. This information is not intended as a substitute for pro fessional medical care. Always follow your healthcare professional's instruction s. AGE LINER * Pre-Anesthesia Patient Instructions* Bijal Dutton RN [...] and any other valuables at home. The [facility] is not responsible for the loss or breakage of [employer] items. Remove nail spanish, makeup and all jewelry (including piercings) before comin g to the hospital. The morning of your procedure: brush your teeth and tongue do not smoke do not shave the area where you will have surgery What to bring to the hospital ID/ Insurance Card Make Up Editor card Official documents for legal guardianship Copy [...] not receive a c all, please call [phone] before 4:30pm or [phone] after 4:30pm. Notify us at [facility]: if you need to cancel your procedure if you are going to be late Arrival at the [facility] [address] [place] [address] Park in the Parking Garage, located directly across from the main entrance to the hospital. [place] parking is available from 7 AM to 4 PM Thursday through Thursday. Enter through the ground floor [facility] entrance and check in at the [...] needed. In dications: visible water retention glucosam/chond-msm1/C/williams/bor (IQODSEPWKXE-DBFZT-GHX COMPLEX PO) Take 1 tab let by [...] any medicine updates or questions . E-mail: [email or web address] Before going home from the hospital, please [...] Take 1 tablet 0 g/bor by mouth ([id number]-[id number]-OQJ daily. COMPLEX PO) documented as of this [...] Yoon Ch MD - 03/28/2019 11:31 AM LUGGAGE LINER History and Physical Update Note Allergies: Patient [...] performed on 03/02/19. Yoon Ch MD Pager AGE LINER * Yoon Ch MD - 03/02/2019 9:00 [...] needed. In dications: visible water retention glucosam/chond-msm1/C/williams/bor (CVXKTQLMFVO-NGART-UBT COMPLEX PO) Take 1 tab let by [...] of grafted fat, need for additional surgery. Bailey fat from upper abdomen. surgery to be scheduled in March. Consent signed. ASPS consent given. Photos taken today. rx's given: cephalexin, zofran. Has leftover pain medication. Order a back up implant x 2. documented in this encounter Miscellaneous Notes * Care Plan - Deidra Chapa RN - 03/28/2019 1:45 PM LUGGAGE LINER AGE LINER * Operative Report (Direct Entry) - Yoon Ch MD - 03/28/2019 1:10 PM LUGGAGE LINER OPERATIVE REPORT Name: Caridad Schaeffer is a 59 y.o. female : 1960 MRN#: [id number] DATE OF OPERATION: 03/28/2019 Surgeon(s) and Role: [...] personally performed this procedure with a Physician Molded Frames Assembler as the surgical instruments inspector, because there was no qualified resident available. Yoon Ch MD Pager [phone] AGE LINER documented in this encounter Plan of Treatment Not on filedocumented as of this encounter Goals Goal Patient Associated Recent Progress Patient-Stat Aut hor Goal Type Problems ed? [facility] No Erna Rincon RN documented as of this encounter Procedures Comments Procedure Name Priority Date/Time Associated Diag nosis REVISION RECONSTRUCTED 03/28/2019 Encounter for breast BREAST 12:06 PM LUGGAGE LINER reconstruction foll owing mastectomy Malignant neoplasm of left breast in female, estrogen receptor positive, unspecified site of breast (HCC) Special Needs 03/11 PER CHANGE FORM, CASE MOVED FROM 03/28 AT [facility] TO 03/28 [facility] - BP (1135) TELEMETRY STRIPS-SCAN 03/28/2019 12:00 AM LUGGAGE LINER documented in this encounter Results * TELEMETRY STRIPS-SCAN (03/28/2019 12:00 AM LUGGAGE LINER) Narrative Performed At This result has an attachment that is n ot available. Ordered by an unspecified provider. documented in this encounter Visit Diagnoses Diagnosis Encounter for breast reconstruction fol lowing mastectomy Malignant neoplasm of left breast in fe male, estrogen receptor positive, unspecified site of breast (HCC) documented in this encounter Administered Medications Action Date Dose Rate Site Medication Order MAR Action 03/28/2019 11:49 AM LUGGAGE LINER 1,000 mg acetaminophen (TYLENOL) tablet 1,000 mg Given 1,000 mg, Oral, ONCE, 1 dose, 03/28/19 at 1130, Pre-Op 03/28/2019 11:49 AM LUGGAGE LINER 200 mg celecoxib (CELEBREX) capsule 200 mg Given 200 mg, Oral, ONCE, 1 dose, Thu 9 at 1130, Pre-Op diphenhydrAMINE (BENADRYL) injection 12.5 mg 12.5 mg, Intravenous, ONCE PRN, 1 dose, Starting 03/28/19 at 1310, Until Mo n 03/28/19 at 1709, Other..., nausea/vomiting, Third line agent, give if second line agent ineffective., PACU (only) 03/28/2019 2:01 PM LUGGAGE LINER 25 mcg fentaNYL citrate PF (SUBLIMAZE) Given injection 25 mcg 25 mcg, Intravenous, EVERY 5 MIN PRN, Starting 03/28/19 at 1310, Until Mo n 03/28/19 at 1709, Pain Injectable, For Pain Score < 4, Maximum total dose of 200 mcg Hold for RR < 10, PACU (only) fentaNYL citrate PF (SUBLIMAZE) injection 50 mcg 50 mcg, Intravenous, EVERY 5 MIN PRN, Starting 03/28/19 at 1310, Until Mo n [...] given intraoperatively, PACU (only) 03/28/2019 12:06 PM LUGGAGE LINER lactated ringers infusion Given - New 1,000 mL, Intravenous, at 20 mL/hr, Bag CONTINUOUS, Starting Thu03/28/19 at 1130, Until 03/28/19 at 1709, Pre-O p 1,000 mL 20 mL/hr Given - New Bag 03/28/2019 11:40 AM LUGGAGE LINER 03/28/2019 12:37 PM LUGGAGE LINER 1,000 mL lactated ringers infusion Given - New INTRA-PROCEDURE MED(CONT), Starting Thu Bag 03/28/19 at 1237, Until 03/28/19 at 1237, Intra-op 03/28/2019 12:38 PM LUGGAGE LINER 50 mL lidocaine 1%/EPINEPHrine 1:100,000 Given injection INTRA-PROCEDURE MED, Starting Thu03/28/19 at 1238, Until Thu03/28/19 at 1329, Intra-op 03/28/2019 11:40 AM LUGGAGE LINER 0.1 mL lidocaine PF 1% (10 mg/mL) [...] six hours., PACU (only) 03/28/2019 1:42 PM LUGGAGE LINER 10 mg oxyCODONE (ROXICODONE) tablet 5-10 mg Given 5-10 mg, Oral, ONCE PRN, 1 dose, Starting Thu03/28/19 at 1310, Until Mo n 03/28/19 at 1342, Pain PO, For Pain Score <4, PACU (only) documented in this encounter
--- OUTSIDE RECORDS SUMMARY | 2019-05-15 23:38 | XMS REPORT | Encounter Summary ---
Author Author [facility] Organization [facility] Address Unknown Phone Unavailable Care Team Providers Care Solid Waste Manager Name Role Phone Meghan Del Rosario MD PCP Reason for Visit * Reason Comments Treatment * Treatment (Routine) Referred By Contact Referred To Contact Status Reason Specialty Diagnoses / [place] [address] [place] [address] [place] [address] [place] [address] Authorized Hematology & Diagnoses Oncology / Malignant neoplasm Hematology and of upper-inner Oncology quadrant of left female breast (HCC) Estrogen receptor positive status (ER+) P rocedures trastuzumab (HERCEPTIN) Encounter Details Care Team Description Date Type Department Arin Styles APRN [address], [place] [address] [phone] 03/17/2019 [facility] [address] [place] [phone] Social History Date Tobacco Use Types [...] Signs Reading Time Taken Comments Vital Sign 128/68 03/17/2019 12:48 PM CDT Blood Pressure 88 03/17/2019 12:48 PM CDT Pulse 36.6 C (97.9 F) 03/17/2019 12:48 PM CDT Temperature 16 03/17/2019 12:48 PM CDT Respiratory Rate 100% 03/17/2019 12:48 PM CDT Oxygen Saturation - - Inhaled Oxygen Concentration 95.8 kg (211 lb 3.2 oz) 03/17/2019 12:48 PM CDT Weight 175.3 cm (5' 9") 03/17/2019 12:48 PM CDT Height 31.19 03/17/2019 12:48 PM CDT Body Mass Index documented in this [...] w/minerals 27-0.4 mg tab by mouth daily. 10/28/2018 03/28/2019 furosemide (LASIX) 20 mg Take one 30 tablet 3 tabletIndications: edema tablet by mouth daily as needed. Indications: visible water retention 04/13/2019 glucosam/chond-msm1/C/man Take 1 tablet 0 g/bor by mouth (TCDYZZXBFVX-QLCLZ-FDG daily. COMPLEX PO) documented as of this encounter Progress Notes * Sun Banda, EBONI - 03/17/2019 2:25 PM CDT Pt presents today for tx. Port accessed with positive blood return noted. Pt selena erated infusion without difficulty. Port flushed with saline and packed with hep randy prior to de-access. Pt released in stable condition. CHEMO NOTE Verified chemo consent signed and in chart. Verified initiate chemo order in O2 Blood return positive via: Port (Single) BSA and dose double checked (agree with orders as written) with: yes Salome schmittRN Labs/applicable tests checked: echo Chemo regime: Drug/cycle/day Herceptin 558mg/Cycle 6/Day 1 Rate verified and armband double checkwith second RN: yes Salome Calderon RN Patient education offered and stated understanding. Denies questions at this nicolas e. documented in this encounter Miscellaneous Notes * Addendum Note - Melani Martinez - 03/21/2019 2:58 PM ADULT PSYCHIATRIST Encounter addended by: Melani Martinez on: 03/21/2019 2:58 PM Actions taken: Charge Capture section accepted T PSYCHIATRIST documented in this encounter Plan of Treatment Not on filedocumented as of this encounter Goals Goal Patient Associated Recent Progress Patient-Stat Aut hor Goal Type Problems ed? [facility] No Erna Rincon RN documented as of this encounter Visit Diagnoses Diagnosis Malignant neoplasm of left breast in fe male, estrogen receptor positive, unspecified site of breast (HCC) - Primary documented in this encounter Administered Medications Action Date Dose Rate Site Medication Order MAR Action 03/17/2019 1:50 PM CDT 500 Units heparin lock flush PF syringe 500 Units Given 500 Units, Intra-catheter, ONCE, 1 dose , Humaira 03/17/19 at 1300, NOTE: This is a HIGH ALERT Medication., 03/17/2019 1:18 PM CDT 558 mg 553.1 mL/hr trastuzumab (HERCEPTIN) 558 mg in sodium Given - New chloride 0.9% (NS) 276.572 mL IVPB Bag 558 mg (6 mg/kg 93 kg Treatment plan recorded weight), Intravenous, 276.572 mL, Administer ove r 0.5 Hours, ONCE, 1 dose, Humaira 03/17/19 a t 1330, NOTE: This is a HIGH ALERT Medication., documented in this encounter
--- OUTSIDE RECORDS SUMMARY | 2019-05-15 23:38 | XMS REPORT | Encounter Summary ---
Author Author [facility] Organization [facility] Address Unknown Phone Unavailable Care Team Providers Care Medical Collections Name Role Phone Meghan Del Rosario MD PCP Reason for Visit * Reason Comments Heme/Onc Care * Treatment (Routine) Referred By Contact Referred To Contact Status Reason Specialty Diagnoses / [place] [address] [place] [address] [place] [address] [place] [address] Authorized Hematology & Diagnoses Oncology / Malignant neoplasm Hematology and of upper-inner Oncology quadrant of left female breast (HCC) Estrogen receptor positive status (ER+) P rocedures trastuzumab (HERCEPTIN) Encounter Details Care Team Description [place] [address] [place] [address] [phone] 04/28/2019 [facility] [address] [place] [phone] Social History Date Tobacco Use Types [...] Signs Reading Time Taken Comments Vital Sign 134/78 04/28/2019 11:32 AM LANDSCAPE FOREMAN Blood Pressure 95 04/28/2019 11:32 AM LANDSCAPE FOREMAN Pulse 36.4 C (97.6 F) 04/28/2019 11:32 AM LANDSCAPE FOREMAN Temperature 18 04/28/2019 11:32 AM LANDSCAPE FOREMAN Respiratory Rate 98% 04/28/2019 11:32 AM LANDSCAPE FOREMAN Oxygen Saturation - - Inhaled Oxygen Concentration 94.3 kg (207 lb 12.8 oz) 04/28/2019 11:32 AM LANDSCAPE FOREMAN Weight 175.3 cm (5' 9") 04/28/2019 11:32 AM LANDSCAPE FOREMAN Height 30.69 04/28/2019 11:32 AM LANDSCAPE FOREMAN Body Mass Index documented in this encounter [...] this encounter Discharge Instructions * Patient Instructions* Salome Calderon RN - 04/28/2019 11:30 AM LANDSCAPE FOREMAN Call Immediately to report the following: Uncontrolled nausea and/or vomiting, uncontrolled pain, or unusual bleeding. Temperature of 100.4 F or greater and/or any sign/symptom of infection (redness, warmth, tenderness) Painful mouth or difficulty swallowing Red, cracked, or painful hands and/or feet Diarrhea Swelling of arms or legs Rash Important Phone Numbers: [facility] Main Number (answered 24 hours a day) [phone] Cancer Center Scheduling (appointments) [phone] OR [phone] Cancer Action (for nutritional supplements) [phone] Port Maintenance - If you have a port, it should be flushed every 6-8 weeks when not in use. Please check with your MD, nurse, or the touch up painter. SCAPE FOREMAN documented in this encounter Medications at Time [...] w/minerals 27-0.4 mg tab by mouth daily. documented as of this encounter Progress Notes * Salome Calderon, EBONI - 04/28/2019 11:30 AM LANDSCAPE FOREMAN Port accessed, blood verified. Pt is here with her friend. Pt is doing well and denies complaints. CHEMO NOTE Verified chemo consent signed and in chart. Verified initiate chemo order in O2 Blood return positive via: Port (Single) BSA and dose double checked (agree with orders as written) with: yes Labs/applicable tests checked: None Chemo regime: Herceptin-cycle 8, day 1 Rate verified and armband double checkwith second RN: yes Patient education offered and stated understanding. Denies questions at this nicolas e. pt discharged in stable condition. SCAPE FOREMAN documented in this encounter Miscellaneous Notes * Addendum Note - Melani Martinez - 04/28/2019 11:30 AM LANDSCAPE FOREMAN Encounter addended by: Melani Martinez on: 05/03/2019 12:30 PM Actions taken: Charge Capture section accepted SCAPE FOREMAN documented in this encounter Plan of Treatment Not on filedocumented as of this encounter Goals Goal Patient Associated Recent Progress Patient-Stat Aut hor Goal Type Problems ed? [facility] No Erna Rincon, EBNOI documented as of this encounter Visit Diagnoses Diagnosis Malignant neoplasm of left breast in fe male, estrogen receptor positive, unspecified site of breast (HCC) - Primary documented in this encounter Administered Medications Action Date Dose Rate Site Medication Order MAR Action 04/28/2019 12:25 PM LANDSCAPE FOREMAN 500 Units heparin lock flush PF syringe 500 Units Given 500 Units, Intra-catheter, ONCE, 1 dose , Humaira 04/28/19 at 1130, NOTE: This is a HIGH ALERT Medication., 04/28/2019 11:50 AM LANDSCAPE FOREMAN 558 mg 553.1 mL/hr trastuzumab (HERCEPTIN) 558 mg in sodium Given - New chloride 0.9% (NS) 276.572 mL IVPB Bag 558 mg (6 mg/kg 93 kg Treatment plan recorded weight), Intravenous, 276.572 mL, Administer ove r 0.5 Hours, ONCE, 1 dose, Humaira 04/28/19 a t 1200, NOTE: This is a HIGH ALERT Medication., documented in this encounter
--- OUTSIDE RECORDS SUMMARY | 2019-05-15 23:39 | XMS REPORT | Encounter Summary ---
Author Author [facility] Organization [facility] Address Unknown Phone Unavailable Care Team Providers Care Fabric Worker Leader Name Role Phone Meghan Del Rosario MD PCP Reason for Visit * Reason Comments Results Encounter Details Care Team Description Date [place] [address] [place] [address] Results 01/13/2019 Telephone [facility] [address] [place] [address] Social History Date Tobacco Use Types [...] Status Date of Assessment Functional Status Response 01/13/2019 Does the patient have a hearing impairment: No 01/13/2019 Does the patient have a visual impairment: Yes 01/13/2019 Does the patient have impaired ambulation: No 01/13/2019 Does the patient have an activity of daily living No (ADL) impairment: 01/13/2019 Does the patient have an instrumental activity of No daily living (IADL) impairment: Date of Assessment Cognitive Status Response 01/13/2019 Does the patient have a cognitive impairment: No documented as of this encounter Miscellaneous Notes * Telephone Encounter - Ami Kelley RN - 01/13/2019 4:48 PM CDT Called Caridad. Stated to her Dr Christie did receive her bone density report and s he has normal bone density. She state "I do?". I stated yes, she has normal bone density. She was happy to hear "something is normal". documented in this encounter Plan of Treatment Not on filedocumented as of this encounter Goals Goal Patient Associated Recent Progress Patient-Stat Aut hor Goal Type Problems ed? [facility] No Erna Rincon, EBONI documented as of this encounter Visit Diagnoses Not on filedocumented in this encounter
--- OUTSIDE RECORDS SUMMARY | 2019-05-15 23:39 | XMS REPORT | Encounter Summary ---
Author Author [facility] Organization [facility] Address Unknown Phone Unavailable Care Team Providers Care Etymology Teacher Name Role Phone Meghan Del Rosario MD PCP Reason for Referral * Test (Routine) Referred By Contact Referred To Contact Status Reason Specialty Diagnoses / [place] [address] [place] [address] Cv Cmpc3 Echo/Pv [address] [place] [id number] Pending Review Cardiology Diagnoses Malignant neoplasm of left breast in female, estrogen receptor positive, unspecified site of breast (HCC) BARD1 gene mutation positive P rocedures 2-D ECHOCARDIOGRAM ONLY OK ECHO TRANSTHORAC R-T 2D W/WO M-MODE REC COMP Reason for Visit * Reason Comments Follow Up Encounter Details Care Team Description Date [place] [address] [place] [address] [phone] Malignant neoplasm of left breast in fem keke, estrogen receptor positive, unspecified site of breast (HCC) (Primary Dx); Menopause; BARD1 gene mutation positive 02/24/2019 Office Visit [facility] [address] [place] [address] Social History Date Tobacco Use [...] Signs Reading Time Taken Comments Vital Sign 127/65 02/24/2019 10:21 AM CDT Blood Pressure 73 02/24/2019 10:21 AM CDT Pulse 36.6 C (97.9 F) 02/24/2019 10:21 AM CDT Temperature 18 02/24/2019 10:21 AM CDT Respiratory Rate 100% 02/24/2019 10:21 AM CDT Oxygen Saturation - - Inhaled Oxygen Concentration 95.7 kg (211 lb) 02/24/2019 10:22 AM CDT Weight 175.3 cm (5' 9") 02/24/2019 10:22 AM CDT Height 31.16 02/24/2019 10:22 AM CDT Body Mass Index documented in this encounter Functional Status Date of Assessment Functional Status Response 02/24/2019 Does the patient have a hearing impairment: No 02/24/2019 Does the patient have a visual impairment: Yes 02/24/2019 Does the patient have impaired ambulation: No 02/24/2019 Does the patient have an activity of daily living No (ADL) impairment: 02/24/2019 Does the patient have an instrumental activity of No daily living (IADL) impairment: Date of Assessment Cognitive Status Response 02/24/2019 Does the patient have a cognitive impairment: No documented as of this encounter Progress Notes * Duran Christie MD - 02/24/2019 10:15 AM CDT Name: Caridad Schaeffer : 1960 AGE: 59 y.o . DATE OF SERVICE: 02/24/2019 Subjective: Reason for Visit: Follow Up Caridad Schaeffer is a 59 y.o. female. Cancer Staging Malignant neoplasm of left breast in female, estrogen receptor positive (HCC) Staging form: Breast, AJCC 8th Edition - Clinical stage from 07/09/2018: Stage IA (cT1c, cN0, cM0, G2, ER: Positive, OK: Positive, HER2: Positive) - Signed by Jazmín Stark PA-C on 07/14/2018 - Pathologic stage from 08/12/2018: Stage IA (pT1c, pN0(sn), cM0, G3, ER+, OK+, H ER2-) - Signed by Jazmín Stark [...] breast progno stic profile showed ER 95%, OK 55%, HER-2 was 2+ by IHC but [...] 8.Weekly Taxol with Herceptin started 09/02/2018-11/17/18 and then continued on Herceptin maintenance starting 12/02/2018; femara 12/02/18 Past medical history: Vasomotor symptoms. Past surgical history, tonsillectomy and knee meniscus surgery. Social history: She lives with her denies any smoking or drug abuse. 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 Interval History: Caridad presents for follow-up of her breast cancer. She is currently doing wel l but is having some neuropathy still from her treatment. Review of Systems Constitutional: Negative for activity change, appetite change, fatigue and fever . HENT: Negative for congestion and sore throat. Eyes: Negative. Respiratory: Negative for cough and shortness of breath. Cardiovascular: Negative. Gastrointestinal: Negative for abdominal distention, constipation and diarrhea. Endocrine: Negative. Genitourinary: Negative for difficulty urinating. Musculoskeletal: Negative for arthralgias, myalgias, neck pain and neck stiffnes s. Skin: Negative for rash. Neurological: Negative for dizziness, light-headedness and numbness. Hematological: Negative for adenopathy. Does not bruise/bleed easily. Psychiatric/Behavioral: Negative. Objective: acetaminophen (TYLENOL) 325 mg [...] needed. In dications: visible water retention glucosam/chond-msm1/C/williams/bor ([id number] COMPLEX PO) Take 1 tab let by mouth daily. lidocaine/prilocaine (EMLA) 2.5/2.5 % topical cream Apply topically to affe cted area as Needed. Apply to port a cath site about 30 - 45 min before access. other medication Take 1 Dose by mouth daily. Vibe, energy supplement vitamins, multi w/minerals 27-0.4 mg tab Take 1 tablet by mouth daily. Vitals: 02/24/19 1021 02/24/19 1022 BP: 127/65 Pulse: 73 Resp: 18 Temp: 36.6 C (97.9 F) TempSrc: Oral Oral SpO2: 100% Weight: 95.7 kg (211 lb) 95.7 kg (211 lb) Height: 175.3 cm (69") 175.3 cm (69") Body mass index is 31.16 kg/m. Pain Score: Zero Fatigue Scale: 0-None Pain Addressed: N/A Patient Evaluated for a Clinical Trial: No treatment clinical trial available fo r this patient. Eastern Cooperative Oncology Group performance status is 0, Fully active, able t o carry on all pre-disease performance without restriction.. Physical Exam Constitutional: She is oriented to person, place, and time. She appears well-dev eloped and well-nourished. HENT: Head: Normocephalic. Eyes: Pupils are equal, round, and reactive to light. Conjunctivae are normal. N o scleral icterus. Neck: Normal range of motion. Neck supple. Cardiovascular: Normal rate, regular rhythm, normal heart sounds and intact dist al pulses. Exam reveals no gallop and no friction rub. No murmur heard. Pulmonary/Chest: Effort normal and breath sounds normal. No respiratory distress . She has no wheezes. She has no rales. Abdominal: Soft. Bowel sounds are normal. She exhibits no distension. There is n o tenderness. Musculoskeletal: Normal range of motion. She exhibits no edema. Lymphadenopathy: She has no cervical adenopathy. Neurological: She is alert and oriented to person, place, and time. Assessment and Plan: Left breast cancer ER/OK positive, HER-2 2+ by IHC and positive by FISH on biops y. Definitive pathology showed a 1.7 cm tumor ER/OK positive, HER-2/zuly negati ve. We will continue Herceptin. We will hold femara a couple weeks and then ch gavin her to aromasin. Her echo from today was normal. Vaginal bleeding. She did have a pelvic ultrasound that was unremarkable. Bone health. She did have a bone density on January 04. I will request the re sults. Neuropathy. She did not like how the neurontin made her feel and she discontinue d. We will monitor. documented in this encounter Plan of Treatment Order Schedule Name Type Priority Associated Diag noses Expected: 05/27/2019 (Approximate), Expi res: 02/25/2020 CBC AND DIFF Lab Routine Malignant neopl asm of left breast in female, estrogen receptor positive, unspecified site of breast (HCC) BARD1 gene mutation positive Expected: 05/27/2019 (Approximate), Expi res: 02/25/2020 COMPREHENSIVE METABOLIC Lab Routine Malign ant neoplasm of PANEL left breast in female, estrogen receptor positive, unspecified site of breast (HCC) BARD1 gene mutation positive Expected: 05/27/2019, Expires: 0 2-D ECHOCARDIOGRAM ONLY ECHO Routine Malign ant neoplasm of left breast in female, estrogen receptor positive, unspecified site of breast (HCC) BARD1 gene mutation positive documented as of this encounter Goals Goal Patient Associated Recent Progress Patient-Stat Aut hor Goal Type Problems ed? [facility] No Erna Rincon RN documented as of this encounter Results * COMPREHENSIVE METABOLIC PANEL (04/07/2019 10:13 AM SUPPLY MANAGER) Sodium 139 137 - 147 MMOL/L [...] >60 >60 mL/min [facility] Comment: [place] The eGFR is not validated f or use in drug dosing adjustments. Continue to use estimated creatinine clearance per dosing reference text. Please contact the Clinical Pharmacist for questions. eGFR >60 >60 mL/min [facility] [place] Comment: The eGFR is not validated for use in drug dosing adjustments. Continue to use estimated creatinine clearance per dosing reference text. Please contact the Clinical Pharmacist for questions. Specimen Blood Performing Organization Address City/State/Zipcode Ph one Number MAIN LAB [address] [place] [address] * CBC AND DIFF (04/07/2019 10:13 AM SUPPLY MANAGER) White Blood 5.7 4.5 - 11.0 K/UL [facility] [place] RBC 4.32 4.0 - 5.0 M/UL [facility] [place] Hemoglobin 12.1 12.0 - 15.0 GM/DL [facility] [place] Hematocrit 36.5 36 - 45 % [facility] [place] MCV 84.5 80 - 100 FL [facility] [place] MCH 28.0 26 - 34 PG [facility] [place] MCHC 33.2 32.0 - 36.0 G/DL [facility] [place] RDW 14.8 11 - 15 % [facility] [place] Platelet Count 333 150 - 400 K/UL [facility] [place] MPV 6.3 (L) 7 - 11 FL [facility] [place] Neutrophils 60 41 - 77 % [facility] [place] Lymphocytes 28 24 - 44 % [facility] [place] Monocytes 9 4 - 12 % [facility] [place] Eosinophils 2 0 - 5 % [facility] [place] Basophils 1 0 - 2 % [facility] [place] Absolute 3.50 1.8 - 7.0 K/UL [facility] Neutrophil [place] Count Absolute Lymph 1.60 1.0 - 4.8 K/UL [facility] Count [place] Absolute 0.50 0 - 0.80 K/UL [facility] Monocyte Count [place] Absolute 0.10 0 - 0.45 K/UL [facility] Eosinophil [place] Count Absolute 0.00 0 - 0.20 K/UL [facility] Basophil Count [place] Specimen Blood Performing Organization Address City/State/Zipcode Ph one Number [facility] [place] [address] [address] documented in this encounter Visit Diagnoses Diagnosis Malignant neoplasm of left breast in fe male, estrogen receptor positive, unspecified site of breast (HCC) - Primary Menopause Asymptomatic postmenopausal status (age -related) (natural) BARD1 gene mutation positive documented in this encounter
--- OUTSIDE RECORDS SUMMARY | 2019-05-15 23:39 | XMS REPORT | Encounter Summary ---
Author Author [facility] Organization [facility] Address Unknown Phone Unavailable Care Team Providers Care Cement Kiln Operator Name Role Phone Meghan Del Rosario MD PCP Reason for Referral * Test (Routine) Referred By Contact Referred To Contact Status Reason Specialty Diagnoses / [place] [address] [place] [address] Cv Cmpc3 Echo/Pv [address] [address] No Auth Needed Cardiology Diagnoses Malignant neoplasm of left breast in female, estrogen receptor positive, unspecified site of breast (HCC) P rocedures 2-D ECHOCARDIOGRAM ONLY MT ECHO TRANSTHORAC R-T 2D W/WO M-MODE REC COMP Reason for Visit * Reason Comments Follow Up Encounter Details Care Team Description Date [place] [address] [place] [address] [phone] Malignant neoplasm of left breast in fem keke, estrogen receptor positive, unspecified site of breast (HCC) (Primary Dx) 01/13/2019 Office Visit [facility] [address] [place] [id number] Social History Date Tobacco Use Types Packs/Day [...] Signs Reading Time Taken Comments Vital Sign 104/70 01/13/2019 10:22 AM CDT Blood Pressure 72 01/13/2019 10:22 AM CDT Pulse 36.7 C (98 F) 01/13/2019 10:22 AM CDT Temperature 18 01/13/2019 10:22 AM CDT Respiratory Rate 99% 01/13/2019 10:22 AM CDT Oxygen Saturation - - Inhaled Oxygen Concentration 97.2 kg (214 lb 3.2 oz) 01/13/2019 10:22 AM CDT Weight 175.3 cm (5' 9") 01/13/2019 10:22 AM CDT Height 31.63 01/13/2019 10:22 AM CDT Body Mass Index documented [...] Progress Notes * Duran Christie MD - 01/13/2019 10:15 AM CDT Name: Caridad Schaeffer : 1960 AGE: 58 y.o . DATE OF SERVICE: 01/13/2019 Subjective: Reason for Visit: Follow Up Caridad Schaeffer is a 58 y.o. female. Cancer Staging Malignant neoplasm of left breast in female, estrogen receptor positive (HCC) Staging form: Breast, AJCC 8th Edition - Clinical stage from 07/09/2018: Stage IA (cT1c, cN0, cM0, G2, ER: Positive, MT: Positive, HER2: Positive) - Signed by Jazmín Stark PA-C on 07/14/2018 - Pathologic stage from 08/12/2018: Stage IA (pT1c, pN0(sn), cM0, G3, ER+, MT+, H ER2-) - Signed by Jazmín Stark [...] breast progno stic profile showed ER 95%, MT 55%, HER-2 was 2+ by IHC but [...] and then continued on Herceptin maintenance starting 12/02/2018 Past medical history: Vasomotor symptoms. Past surgical history, tonsillectomy and knee meniscus surgery. Social history: She lives with her denies any smoking or drug abuse. 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 Interval History: Caridad presents for follow-up of her breast cancer. She is currently doing wel l but is having some neuropathy still from her treatment. We held her letrozole for a couple weeks. Review of Systems Constitutional: Negative for activity [...] cap Take 1 capsule by mouth daily. famotidine (PEPCID PO) Take by mouth twice daily. fluoxetine (PROZAC) 20 mg capsule Take 20 mg by mouth daily. furosemide (LASIX) 20 mg tablet Take one tablet by mouth daily as needed. In dications: visible water retention gabapentin (NEURONTIN) 600 mg tablet Take one tablet by mouth at bedtime kobe ly. glucosam/chond-msm1/C/williams/bor ([id number]-EYZ COMPLEX PO) Take 1 tab let by mouth daily. letrozole (FEMARA) 2.5 mg tablet Take one tablet by mouth daily. lidocaine/prilocaine (EMLA) 2.5/2.5 % topical cream Apply topically to affe cted area as Needed. Apply to port a cath site about 30 - 45 min before access. other medication Take 1 Dose by mouth daily. Vibe, energy supplement vitamins, multi w/minerals 27-0.4 mg tab Take 1 tablet by mouth daily. Vitals: 01/13/19 1022 BP: 104/70 Pulse: 72 Resp: 18 Temp: 36.7 C (98 F) TempSrc: Oral SpO2: 99% Weight: 97.2 kg (214 lb 3.2 oz) Height: 175.3 cm (69") Body mass index is 31.63 kg/m. Pain Score: Zero Fatigue Scale: 0-None [...] time. Assessment and Plan: Left breast cancer ER/MT positive, HER-2 2+ by IHC and positive by FISH on biops y. Definitive pathology showed a 1.7 cm tumor ER/MT positive, HER-2/zuly negati ve. We will continue Herceptin. Her echo from November 16 showed a normal ejection fraction and we will repeat in February. After discussion with her we will res tart the Femara and see how she is doing. Vaginal bleeding. She did have a pelvic ultrasound that was unremarkable. Bone health. She did have a bone density on January 04. I will request the re sults. Neuropathy. Seeing she has neuropathy and still getting hot flashes we discusse d adding some Neurontin 600 mg at bedtime. documented in this encounter Plan of Treatment Not on filedocumented as of this encounter Goals Goal Patient Associated Recent Progress Patient-Stat Aut hor Goal Type Problems ed? [facility] No Erna Rincon RN documented as of this encounter Results * 2-D ECHOCARDIOGRAM ONLY (02/24/2019 2:51 PM [...] 2.16 m2 OTHER OUTSIDE LAB Referring Duran Christie OTHER OUTSIDE Provider LAB FS 30.00 28 - 44 % OTHER OUTSIDE LAB EF 51.00 % OTHER OUTSIDE LAB LV mass 131.64 67 - 162 g OTHER OUTSIDE LAB RWT 0.37 <=0.42 OTHER OUTSIDE LAB Left Atrium 31.69 16 - 34 OTHER OUTSIDE Index LAB Cardiology Siemens [id number] OTHER OUTSIDE Ultrasound LAB Machine Left Ventricle [...] City/State/Zipcode Ph one Number OTHER OUTSIDE LAB * COMPREHENSIVE METABOLIC PANEL (02/24/2019 9:47 AM CDT) Pathologist [facility] Sodium 139 137 - 147 MMOL/L [facility] Potassium 4.0 3.5 - 5.1 MMOL/L [facility] Chloride 107 98 - 110 MMOL/L [facility] Glucose 75 70 - 100 MG/DL [facility] Blood Urea 13 7 - 25 MG/DL [facility] Nitrogen Creatinine 0.72 0.4 - 1.00 MG/DL [facility] Calcium 9.4 8.5 - 10.6 MG/DL [facility] Total Protein 7.0 6.0 - 8.0 G/DL [facility] Total Bilirubin 0.3 0.3 - 1.2 MG/DL [facility] Albumin 4.4 3.5 - 5.0 G/DL [facility] Alk Phosphatase 66 25 - 110 U/L [facility] AST (SGOT) 26 7 - 40 U/L [facility] CO2 26 21 - 30 MMOL/L [facility] ALT (SGPT) 33 7 - 56 U/L [facility] Anion Gap 6 3 - 12 [facility] eGFR Non >60 >60 mL/min [facility] Comment: [place] The eGFR is not validated f or use in drug dosing adjustments. Continue to use estimated creatinine clearance per dosing reference text. Please contact the Clinical Pharmacist for questions. eGFR >60 >60 mL/min [facility] [place] Comment: The eGFR is not validated for use in drug dosing adjustments. Continue to use estimated creatinine clearance per dosing reference text. Please contact the Clinical Pharmacist for questions. Specimen Blood Performing Organization Address City/State/Zipcode Ph one Number MAIN LAB [address] [place] [address] * CBC AND DIFF (02/24/2019 9:47 AM CDT) Pathologist [facility] White Blood 4.7 4.5 - 11.0 K/UL [facility] Cells [facility] [place] RBC 4.14 4.0 - 5.0 M/UL [facility] [place] Hemoglobin 11.8 (L) 12.0 - 15.0 GM/DL [facility] [place] Hematocrit 35.2 (L) 36 - 45 % [facility] [place] MCV 85.1 80 - 100 FL [facility] [place] MCH 28.6 26 - 34 PG [facility] [place] MCHC 33.6 32.0 - 36.0 G/DL [facility] [place] RDW 14.6 11 - 15 % [facility] [place] Platelet Count 240 150 - 400 K/UL [facility] [place] MPV 6.7 (L) 7 - 11 FL [facility] [place] Neutrophils 52 41 - 77 % [facility] [place] Lymphocytes 36 24 - 44 % [facility] [place] Monocytes 9 4 - 12 % [facility] [place] Eosinophils 2 0 - 5 % [facility] [place] Basophils 1 0 - 2 % [facility] [place] Absolute 2.50 1.8 - 7.0 K/UL [facility] Neutrophil [place] Count Absolute Lymph 1.70 1.0 - 4.8 K/UL [facility] Count [place] Absolute 0.40 0 - 0.80 K/UL [facility] Monocyte Count [place] Absolute 0.10 0 - 0.45 K/UL [facility] Eosinophil [place] Count Absolute 0.00 0 - 0.20 K/UL [facility] Basophil Count [facility] Specimen Blood Performing Organization Address City/State/Zipcode Ph one Number [facility] [address] [place], [place] [address] documented in this encounter Visit Diagnoses Diagnosis Malignant neoplasm of left breast in fe male, estrogen receptor positive, unspecified site of breast (HCC) - Primary documented in this encounter
--- OUTSIDE RECORDS SUMMARY | 2019-05-15 23:39 | XMS REPORT | Encounter Summary ---
Author Author [facility] Organization [facility] Address Unknown Phone Unavailable Care Team Providers Care Traffic Control Supervisor Name Role Phone Meghan Del Rosario MD PCP Reason for Visit * Treatment (Routine) Referred By Contact Referred To Contact Status Reason Specialty Diagnoses / [place] [address] [place] [address] [place] [address] [place] [address] Authorized Hematology & Diagnoses Oncology / Malignant neoplasm Hematology and of upper-inner Oncology quadrant of left female breast (HCC) Estrogen receptor positive status (ER+) P rocedures trastuzumab (HERCEPTIN) Encounter Details Care Team Description [place] [address] [place] [address] [phone] 01/13/2019 [facility] [address] [place] [address] Social History Date Tobacco Use Types [...] exceed 4,000mg in a 24 hour period. 06/01/2018 ALPRAZolam (XANAX) 0.25 Take 0.5 mg 0 mg tablet by mouth as Needed. aspirin/acetaminophen/caf Take by 0 feine (EXCEDRIN MIGRAINE mouth as PO) Needed. biotin 10,000 mcg TbDi Dissolve 1 0 tablet by mouth daily. cetirizine (ZYRTEC) 10 mg Take 10 mg by 0 tablet mouth every morning. cholecalciferol(+) Take 5,000 0 (VITAMIN D-3) 5,000 unit Units by tablet mouth daily. famotidine (PEPCID PO) Take by 0 mouth twice daily. 06/01/2018 fluoxetine (PROZAC) 20 mg Take 20 mg by 0 capsule mouth daily. 09/02/2018 lidocaine/prilocaine Apply 30 g 0 (EMLA) 2.5/2.5 % topical topically to cream affected area as Needed. Apply to port a cath site about 30 - 45 min before access. other medication Take 1 Dose 0 by mouth daily. Vibe, energy supplement vitamins, multi Take 1 tablet 0 w/minerals 27-0.4 mg tab by mouth daily. 08/04/2018 03/10/2019 diazePAM (VALIUM) 5 mg Take one 32 tablet 0 tablet tablet by mouth every 6 hours as needed (muscle spasm). 03/10/2019 Echinacea 400 mg cap Take 1 0 capsule by mouth daily. 10/28/2018 03/28/2019 furosemide (LASIX) 20 mg Take one 30 tablet 3 tabletIndications: edema tablet by mouth daily as needed. Indications: visible water retention 01/13/2019 02/24/2019 gabapentin (NEURONTIN) Take one 90 tablet 3 600 mg tablet tablet by mouth at bedtime daily. 04/13/2019 glucosam/chond-msm1/C/man Take 1 tablet 0 g/bor by mouth (OTBTBPJTCHE-AKOUP-YOE daily. COMPLEX PO) 12/02/2018 02/24/2019 letrozole (FEMARA) 2.5 mg Take one 90 tablet 3 tablet tablet by mouth daily. documented as of this encounter Progress Notes * Steph Gonsalez RN - 01/13/2019 2:56 PM CDT Patient ambulatory to infusion in pleasant mood. Port accessed and labs drawn. O rdered treatment infused without incident. Port flushed with NS and packed with heparin; deaccessed. Patient left in fair condition. CHEMO NOTE Verified chemo consent signed and in chart. Verified initiate chemo order in O2 Blood return positive via: Port (Single) BSA and dose double checked (agree with orders as written) with: yes SEE MAR Labs/applicable tests checked: CBC and Comprehensive Metabolic Panel (CMP) Chemo regimen: Herceptin C3D1 Rate verified and armband double checkwith second RN: yes Patient education offered and stated understanding. Denies questions at this nicolas e. documented in this encounter Miscellaneous Notes * Addendum Note - Melani Martinez - 01/13/2019 11:59 PM CDT Encounter addended by: Melani Martinez on: 01/18/2019 9:40 AM Actions taken: Charge Capture section accepted documented in this encounter Plan of Treatment Not on filedocumented as of this encounter Goals Goal Patient Associated Recent Progress Patient-Stat Aut hor Goal Type Problems ed? [facility] No Erna Rincon RN documented as of this encounter Visit Diagnoses Diagnosis Malignant neoplasm of left breast in fe male, estrogen receptor positive, unspecified site of breast (HCC) - Primary documented in this encounter Administered Medications Action Date Dose Rate Site Medication Order MAR Action 01/13/2019 12:05 PM CDT 500 Units heparin lock flush PF syringe 500 Units Given 500 Units, Intra-catheter, ONCE, 1 dose , Humaira 01/13/19 at 1100, NOTE: This is a HIGH ALERT Medication., 01/13/2019 11:30 AM CDT 558 mg 553.1 mL/hr trastuzumab (HERCEPTIN) 558 mg in sodium Given - New chloride 0.9% (NS) 276.572 mL IVPB Bag 558 mg (6 mg/kg 93 kg Treatment plan recorded weight), Intravenous, 276.572 mL, Administer ove r 0.5 Hours, ONCE, 1 dose, Humaira 01/13/19 at 1130, NOTE: This is a HIGH ALERT Medication., documented in this encounter
--- OUTSIDE RECORDS SUMMARY | 2019-05-15 23:39 | XMS REPORT | Encounter Summary ---
Author Author [facility] Organization [facility] Address Unknown Phone Unavailable Care Team Providers Care Returning Officer Name Role Phone Meghan Del Rosario MD PCP Encounter Details Care Team Description [place] [address] [place] [address] Malignant neoplasm of left breast in fem keke, estrogen receptor positive, unspecified site of breast (HCC); BARD1 gene mutation positive; Menopause 01/25/2019 Orders Only [facility] [address], [place] [address] Social History Date Tobacco Use [...] Patient-Stat Aut hor Goal Type Problems ed? [facility] No Erna Rincon RN documented as of this encounter Procedures Comments Procedure Name Priority Date/Time Associated Diag nosis BONE DENSITY SPINE/HIP Routine 01/04/2019 Maligna nt neoplasm of left breast in female, estrogen receptor positive, unspecified site of breast (HCC) BARD1 gene mutation positive Menopause documented in this encounter Results * BONE DENSITY SPINE/HIP (01/04/2019) Narrative Performed At This result has an attachment that is n ot available. Performing Organization Address City/State/[facility] Ph one Number [address] [address] [address] [place] documented in this encounter Visit Diagnoses Diagnosis Malignant neoplasm of left breast in fe male, estrogen receptor positive, unspecified site of breast (HCC) BARD1 gene mutation positive Menopause Asymptomatic postmenopausal status (age -related) (natural) documented in this encounter
--- OUTSIDE RECORDS SUMMARY | 2019-05-15 23:39 | XMS REPORT | Encounter Summary ---
Author Author [facility] Organization [facility] Address Unknown Phone Unavailable Care Team Providers Care Bus Monitor Name Role Phone Meghan Del Rosario MD PCP Reason for Visit * Reason Comments Treatment Encounter Details Care Team Description Date [place] [address] [place] [address] 02/03/2019 [facility] [address] [place] [address] Social History Date Tobacco Use [...] Signs Reading Time Taken Comments Vital Sign 119/74 02/03/2019 9:24 AM CDT Blood Pressure 83 02/03/2019 9:24 AM CDT Pulse 36.4 C (97.6 F) 02/03/2019 9:24 AM CDT Temperature 16 02/03/2019 9:24 AM CDT Respiratory Rate 100% 02/03/2019 9:24 AM CDT Oxygen Saturation - - Inhaled Oxygen Concentration 94.5 kg (208 lb 6.4 oz) 02/03/2019 9:24 AM CDT Weight 175.3 cm (5' 9") 02/03/2019 9:24 AM CDT Height 30.78 02/03/2019 9:24 AM CDT Body Mass Index documented in this encounter Functional Status Date of Assessment Functional Status Response 02/03/2019 Does the patient have a hearing impairment: No 02/03/2019 Does the patient have a visual impairment: Yes 02/03/2019 Does the patient have impaired ambulation: No 02/03/2019 Does the patient have an activity of daily living No (ADL) impairment: 02/03/2019 Does the patient have an instrumental activity of No daily living (IADL) impairment: Date of Assessment Cognitive Status Response 02/03/2019 Does the patient have a cognitive impairment: No documented as of this encounter Discharge Instructions * Patient Instructions* Uma Bartholomew RN - 02/03/2019 9:37 AM CDT Call Immediately to report the following: Uncontrolled nausea and/or vomiting, uncontrolled pain, or unusual bleeding. Temperature of 100.4 F or greater and/or any sign/symptom of infection (redness, warmth, tenderness) Painful mouth or difficulty swallowing Red, cracked, or painful hands and/or feet Diarrhea Swelling of arms or legs Rash Important Phone Numbers: Cancer Center Main Number (answered 24 hours a day) [phone] Cancer Center Scheduling (appointments) [phone] [place] [phone] [facility] (for nutritional supplements) [phone] Port Maintenance - If you have a port, it should be flushed every 6-8 weeks when not in use. Please check with your MD, nurse, or the screw cutter. documented in this encounter Medications at Time [...] Take 1 tablet 0 g/bor by mouth ([id number]-YECCR-NGZ daily. COMPLEX PO) 12/02/2018 02/24/2019 letrozole (FEMARA) 2.5 mg Take one 90 tablet 3 tablet tablet by mouth daily. documented as of this encounter Progress Notes * Uma Bartholomew RN - 02/03/2019 11:00 AM CDT CHEMO NOTE Verified chemo consent signed and in chart. Verified initiate chemo order in O2 Blood return positive via: Port (Power Port) BSA and dose double checked (agree with orders as written) with: yes Nick Alicea RN Labs/applicable tests checked: Echo Chemo regime: Herceptin C4 D1 Rate verified and armband double check with second RN: yes Patient education offered and stated understanding. Denies questions at this nicolas e. documented in this encounter Miscellaneous Notes * Addendum Note - Jackeline Nathan - 02/07/2019 3:05 PM CDT Encounter addended by: Jackeline Nathan on: 02/07/2019 3:05 PM Actions taken: Charge Capture section accepted documented in this encounter Plan of Treatment Not on filedocumented as of this encounter Goals Goal Patient Associated Recent Progress Patient-Stat Aut hor Goal Type Problems ed? [facility] No Erna Rincno, EBONI documented as of this encounter Visit Diagnoses Diagnosis Malignant neoplasm of left breast in fe male, estrogen receptor positive, unspecified site of breast (HCC) - Primary documented in this encounter Administered Medications Action Date Dose Rate Site Medication Order MAR Action 02/03/2019 10:23 AM CDT 500 Units heparin lock flush PF syringe 500 Units Given 500 Units, Flush, ONCE, 1 dose, Humaira 02/03/19 at 1000, NOTE: This is a HIGH ALERT Medication., 02/03/2019 9:50 AM CDT 558 mg 553.1 mL/hr trastuzumab (HERCEPTIN) 558 mg in sodium Given - New chloride 0.9% (NS) 276.572 mL IVPB Bag 558 mg (6 mg/kg 93 kg Treatment plan recorded weight), Intravenous, 276.572 mL, Administer ove r 0.5 Hours, ONCE, 1 dose, Humaira 02/03/19 at 1000, NOTE: This is a HIGH ALERT Medication., documented in this encounter
--- OUTSIDE RECORDS SUMMARY | 2019-05-15 23:39 | XMS REPORT | Encounter Summary ---
Author Author [facility] Organization [facility] Address Unknown Phone Unavailable Care Team Providers Care Project Surveyor Name Role Phone Meghan Del Rosario MD PCP Reason for Visit * Reason Comments Cancer Treatment * Treatment (Routine) Referred By Contact Referred To Contact Status Reason Specialty Diagnoses / [place] [address] [place] [address] [place] [address] [place] [address] Authorized Hematology & Diagnoses Oncology / Malignant neoplasm Hematology and of upper-inner Oncology quadrant of left female breast (HCC) Estrogen receptor positive status (ER+) P rocedures trastuzumab (HERCEPTIN) Encounter Details Care Team Description [place] [address] [place] [address] [phone] 02/24/2019 [facility] [address] [place] [address] Social History Date Tobacco Use Types [...] this encounter Discharge Instructions * Patient Instructions* Mary Jaime RN - 02/24/2019 1:03 PM CDT Call Immediately to report the following: Uncontrolled nausea and/or vomiting, uncontrolled pain, or unusual bleeding. Temperature of 100.4 F or greater and/or any sign/symptom of infection (redness, warmth, tenderness) Painful mouth or difficulty swallowing Red, cracked, or painful hands and/or feet Diarrhea Swelling of arms or legs Rash Important Phone Numbers: Cancer Center Main Number (answered 24 hours a day) [phone] Cancer Center Scheduling (appointments) [phone] OR [phone] [facility] (for nutritional supplements) [phone] Port Maintenance - If you have a port, it should be flushed every 6-8 weeks when not in use. Please check with your MD, nurse, or the materials scheduler. documented in this encounter Medications at Time [...] 5,000 unit Units by tablet mouth daily. 02/24/2019 exemestane (AROMASIN) 25 Take one 90 [...] Take 1 tablet 0 g/bor by mouth ([id number]-XKHDQ-HFT daily. COMPLEX PO) documented as of this encounter Progress Notes * Mary Jaime RN - 02/24/2019 1:01 PM CDT Cycle 5 Day 1 Herceptin Port accessed, labs collected. Patient to follow up with Dr. Christie. OK to treat, labs OK to treat. Tolerated infusion well. Port de-accessed per protocol, heparinized. Discharged in stable condition. CHEMO NOTE Verified chemo consent signed and in chart. Verified initiate chemo order in O2 Blood return positive via: Port (Single and Accessed) BSA and dose double checked (agree with orders as written) with: yes EBONI Romero Labs/applicable tests checked: ECHO Chemo regime: Drug/cycle/day Herceptin C5 D1 Rate verified and armband double checkwith second RN: yes EBONI Romero Patient education offered and stated understanding. Denies questions at this nicolas e. documented in this encounter Miscellaneous Notes * Addendum Note - Melani Martinez - 02/24/2019 1:57 PM CDT Encounter addended by: Melani Martinez on: 03/01/2019 12:22 PM Actions taken: Charge Capture section accepted documented in this encounter Plan of Treatment Not on filedocumented as of this encounter Goals Goal Patient Associated Recent Progress Patient-Stat Aut hor Goal Type Problems ed? [facility] No Erna Rincon RN documented as of this encounter Visit Diagnoses Diagnosis Malignant neoplasm of left breast in fe male, estrogen receptor positive, unspecified site of breast (HCC) - Primary documented in this encounter Administered Medications Action Date Dose Rate Site Medication Order MAR Action 02/24/2019 11:55 AM CDT 500 Units heparin lock flush PF syringe 500 Units Given 500 Units, Intra-catheter, ONCE, 1 dose , Humaira 02/24/19 at 1115, NOTE: This is a HIGH ALERT Medication., 02/24/2019 11:18 AM CDT 558 mg 553.1 mL/hr trastuzumab (HERCEPTIN) 558 mg in sodium Given - New chloride 0.9% (NS) 276.572 mL IVPB Bag 558 mg (6 mg/kg 93 kg Treatment plan recorded weight), Intravenous, 276.572 mL, Administer ove r 0.5 Hours, ONCE, 1 dose, Humaira 02/24/19 a t 1130, NOTE: This is a HIGH ALERT Medication., documented in this encounter
--- OUTSIDE RECORDS SUMMARY | 2019-05-15 23:39 | XMS REPORT | Encounter Summary ---
Author Author [facility] Organization [facility] Address Unknown Phone Unavailable Care Team Providers Care Sheeter Operator Name Role Phone Meghan Del Rosario MD PCP Encounter Details Care Team Description Date [place] [address] [place] [address] 02/03/2019 [facility] [address] [place], [place] [id number] Social History Date Tobacco Use Types Packs/Day [...] Take 1 tablet 0 g/bor by mouth (DLSTCRSDROM-FRCFP-RJH daily. COMPLEX PO) 12/02/2018 02/24/2019 letrozole (FEMARA) 2.5 mg Take one 90 tablet 3 tablet tablet by mouth daily. documented as of this encounter Plan of Treatment Not on filedocumented as of this encounter Goals Goal Patient Associated Recent Progress Patient-Stat Aut hor Goal Type Problems ed? [facility] No Erna Rincon RN documented as of this encounter Visit Diagnoses Not on filedocumented in this encounter
--- OUTSIDE RECORDS SUMMARY | 2019-05-15 23:39 | XMS REPORT | Encounter Summary ---
Author Author [facility] Organization [facility] Address Unknown Phone Unavailable Care Team Providers Care Editor Sound Name Role Phone Meghan Del Rosario MD PCP Encounter Details Care Team Description Date [place] [address] [place] [address] 02/24/2019 [facility] [address] [place], [place] [phone] Social History Date Tobacco Use Types Packs/Day [...] Take 1 tablet 0 g/bor by mouth (ZUAPBHYRDKH-QUISS-BWH daily. COMPLEX PO) documented as of this encounter Plan of Treatment Not on filedocumented as of this encounter Goals Goal Patient Associated Recent Progress Patient-Stat Aut hor Goal Type Problems ed? [facility] No Erna Rincon RN documented as of this encounter Procedures Comments Procedure Name Priority Date/Time Associated Diag nosis HC CBC W/ AUTOMATED DIFF Routine 02/24/2019 Malig nant neoplasm of 9:47 AM CDT left breast in female, estrogen receptor positive, unspecified site of breast (HCC) HC COMPREHENSIVE Routine 02/24/2019 Malignant thierry plasm of METABOLIC PANEL 9:47 AM CDT left breast in fema le, estrogen receptor positive, unspecified site of breast (HCC) documented in this encounter Results * CBC AND DIFF (02/24/2019 9:47 AM CDT) White Blood 4.7 4.5 - 11.0 K/UL [facility] Cells [place] RBC 4.14 4.0 - 5.0 M/UL [facility] [place] Hemoglobin 11.8 (L) 12.0 - 15.0 GM/DL [facility] [place] Hematocrit 35.2 (L) 36 - 45 % [facility] [place] MCV 85.1 80 - 100 FL [facility] [place] MCH 28.6 26 - 34 PG [facility] [place] MCHC 33.6 32.0 - 36.0 G/DL [facility] [place] RDW 14.6 11 - [...] Absolute Lymph 1.70 1.0 - 4.8 K/UL [facility] Count [place] Absolute 0.40 0 - 0.80 K/UL [facility] Monocyte Count [place] Absolute 0.10 0 - 0.45 K/UL [facility] Eosinophil [place] Count Absolute 0.00 0 - 0.20 K/UL [facility] Basophil Count [place] Specimen Blood Performing Organization Address City/State/Zipcode Ph one Number [facility] [place] [address] [place] [address] * COMPREHENSIVE METABOLIC PANEL (02/24/2019 9:47 AM CDT) Sodium 139 137 - 147 MMOL/L [facility] [...] >60 >60 mL/min [facility] Comment: [place] The eGFR is not validated f or use in drug dosing adjustments. Continue to use estimated creatinine clearance per dosing reference text. Please contact the Clinical Pharmacist for questions. eGFR >60 >60 mL/min [facility] [place] Comment: The eGFR is not validated for use in drug dosing adjustments. Continue to use estimated creatinine clearance per dosing reference text. Please contact the Clinical Pharmacist for questions. Specimen Blood Performing Organization Address City/State/Zipcode Ph one Number MAIN LAB [address] [place] [address] documented in this encounter Visit Diagnoses Diagnosis Malignant neoplasm of left breast in fe male, estrogen receptor positive, unspecified site of breast (HCC) documented in this encounter
--- OUTSIDE RECORDS SUMMARY | 2019-05-15 23:39 | XMS REPORT | Encounter Summary ---
Author Author [facility] Organization [facility] Address Unknown Phone Unavailable Care Team Providers Care Grinder Operator Automatic Name Role Phone Meghan Del Rosario MD PCP Reason for Referral * Test (Routine) Referred By Contact Referred To Contact Status Reason Specialty Diagnoses / [place] [address] [place] [address] Cvm Cmpc3 Echo/Pv [address] [place] [address] No Auth Needed Cardiology Diagnoses Malignant neoplasm of left breast in female, estrogen receptor positive, unspecified site of breast (HCC) P rocedures 2-D ECHOCARDIOGRAM ONLY FL ECHO TRANSTHORAC R-T 2D W/WO M-MODE REC COMP Reason for Visit * Test (Routine) Referred By Contact Referred To Contact Status Reason Specialty Diagnoses / [place] [address], [place] [address] Cvm Cmpc3 Echo/Pv [address] [place] [address] No Auth Needed Cardiology Diagnoses Malignant neoplasm of left breast in female, estrogen receptor positive, unspecified site of breast (HCC) P rocedures 2-D ECHOCARDIOGRAM ONLY FL ECHO TRANSTHORAC R-T 2D W/WO M-MODE REC COMP Encounter Details Care Team Description Date [place] [address] [place] [address] [phone] 02/24/2019 [facility] [address] [place] [address] Social History Date Tobacco Use Types Packs/Day [...] Signs Reading Time Taken Comments Vital Sign 135/81 02/24/2019 2:51 PM CDT Blood Pressure - - Pulse - - Temperature - - Respiratory Rate - - Oxygen Saturation - - Inhaled Oxygen Concentration 95.7 kg (211 lb) 02/24/2019 2:51 PM CDT Weight 175.3 cm (5' 9") 02/24/2019 2:51 PM CDT Height 31.16 02/24/2019 2:51 PM CDT Body Mass Index documented in [...] Take 1 tablet 0 g/bor by mouth ([id number]-LICXW-MJP daily. COMPLEX PO) documented as of this encounter Plan of Treatment Not on filedocumented as of this encounter Goals Goal Patient Associated Recent Progress Patient-Stat Aut hor Goal Type Problems ed? [facility] No Erna Rincon RN documented as of this encounter Procedures Comments Procedure Name Priority Date/Time Associated Diag nosis 2-D ECHOCARDIOGRAM ONLY Routine 02/24/2019 Malign ant neoplasm of 2:51 PM CDT left breast in female, estrogen receptor positive, unspecified site of breast (HCC) documented in this encounter Results * 2-D ECHOCARDIOGRAM ONLY [...] 34 OTHER OUTSIDE Index LAB Cardiology Siemens [id number] OTHER OUTSIDE Ultrasound LAB Machine Left Ventricle [...] strain pattern (-21.25 %) Performing Organization Address [facility]/State/Zipcode Ph one Number OTHER OUTSIDE LAB documented in this encounter Visit Diagnoses Diagnosis Malignant neoplasm of left breast in fe male, estrogen receptor positive, unspecified site of breast (HCC) documented in this encounter
--- OUTSIDE RECORDS SUMMARY | 2019-05-15 23:39 | XMS REPORT | Encounter Summary ---
Author Author [facility] Organization [facility] Address Unknown Phone Unavailable Care Team Providers Care Product Safety Associate Name Role Phone Meghan Del Rosario MD PCP Encounter Details Care Team Description Date [place] [address] [place] [address] 01/13/2019 [facility] [address] [place], [place] [id number] Social History Date Tobacco Use Types Packs/Day [...] Take 1 tablet 0 g/bor by mouth ([id number] daily. COMPLEX PO) 12/02/2018 02/24/2019 letrozole (FEMARA) 2.5 mg Take one 90 tablet 3 tablet tablet by mouth daily. documented as of this encounter Plan of Treatment Not on filedocumented as of this encounter Goals Goal Patient Associated Recent Progress Patient-Stat Aut hor Goal Type Problems ed? [facility] No Erna Rincon RN documented as of this encounter Procedures Comments Procedure Name Priority Date/Time Associated Diag nosis CBC AND DIFF Routine 01/13/2019 Malignant neopl asm of 10:00 AM CDT left breast in female, estrogen receptor positive, unspecified site of breast (HCC) BARD1 gene mutation positive COMPREHENSIVE METABOLIC Routine 01/13/2019 Malign ant neoplasm of PANEL 10:00 AM CDT left breast in fema le, estrogen receptor positive, unspecified site of breast (HCC) BARD1 gene mutation positive documented in this encounter Results * COMPREHENSIVE METABOLIC PANEL (01/13/2019 10:00 AM CDT) Sodium 138 137 - 147 MMOL/L [facility] Potassium 4.3 3.5 - 5.1 MMOL/L [facility] Chloride 107 98 - 110 MMOL/L [facility] Glucose 73 70 - 100 MG/DL [facility] Blood Urea 12 7 - 25 MG/DL [facility] Nitrogen Creatinine 0.74 0.4 - 1.00 MG/DL [facility] Calcium 9.1 8.5 - 10.6 MG/DL [facility] Total Protein 7.0 6.0 - 8.0 G/DL [facility] Total Bilirubin 0.2 (L) 0.3 - 1.2 MG/DL [facility] Albumin 4.1 3.5 - 5.0 G/DL [facility] Alk Phosphatase 78 25 - 110 U/L [facility] AST (SGOT) 27 7 - 40 U/L [facility] CO2 25 21 - 30 MMOL/L [facility] ALT (SGPT) 35 7 - 56 U/L [facility] Anion Gap 6 3 - 12 [facility] eGFR Non >60 >60 mL/min [facility] Comment: [place] The eGFR is not validated f or use in drug dosing adjustments. Continue to use estimated creatinine clearance per dosing reference text. Please contact the Clinical Pharmacist for questions. eGFR >60 >60 mL/min [facility] [place] Comment: The eGFR is not validated for use in drug dosing adjustments. Continue to use estimated creatinine clearance per dosing reference text. Please contact the Clinical Pharmacist for questions. Specimen Blood Performing Organization Address City/State/Zipcode Ph one Number MA[facility] LAB [address] [place] [address] * CBC AND DIFF (01/13/2019 10:00 AM CDT) White Blood 5.1 4.5 - 11.0 K/UL [facility] Cells [place] RBC 4.02 4.0 - 5.0 M/UL [facility] [place] Hemoglobin 11.9 (L) 12.0 - 15.0 GM/DL [facility] [place] Hematocrit 36.0 36 - 45 % [facility] [place] MCV 89.6 80 - 100 FL [facility] [place] MCH 29.7 26 - 34 PG [facility] [place] MCHC 33.1 32.0 - 36.0 G/DL [facility] [place] RDW 14.8 11 - 15 % [facility] [place] Platelet Count 264 150 - 400 K/UL [facility] [place] MPV 6.6 (L) 7 - 11 FL [facility] [place] Neutrophils 49 41 - 77 % [facility] [place] Lymphocytes 37 24 - 44 % [facility] [place] Monocytes 10 4 - 12 % [facility] [place] Eosinophils 3 0 - 5 % [facility] [place] Basophils 1 0 - 2 % [facility] [place] Absolute 2.60 1.8 - 7.0 K/UL [facility] Neutrophil [place] Count Absolute Lymph 1.90 1.0 - 4.8 K/UL [facility] Count [place] Absolute 0.50 0 - 0.80 K/UL [facility] Monocyte Count [place] Absolute 0.10 0 - 0.45 K/UL [facility] Eosinophil [place] Count Absolute 0.00 0 - 0.20 K/UL [facility] Basophil Count [place] Specimen Blood Performing Organization Address City/State/Zipcode Ph one Number [facility] [place] [address] [address] documented in this encounter Visit Diagnoses Diagnosis Malignant neoplasm of left breast in fe male, estrogen receptor positive, unspecified site of breast (HCC) BARD1 gene mutation positive documented in this encounter
--- OUTSIDE RECORDS SUMMARY | 2019-05-15 23:39 | XMS REPORT | Encounter Summary ---
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, estrogen receptor positive (HCC) (Primary Dx) 03/01/2019 Office Visit [facility] [address] [place], [place] [phone] Social History Date Tobacco Use Types Packs/Day [...] Signs Reading Time Taken Comments Vital Sign 111/69 03/01/2019 3:01 PM CDT Blood Pressure 82 03/01/2019 3:01 PM CDT Pulse 36.5 C (97.7 F) 03/01/2019 3:01 PM CDT Temperature - - Respiratory Rate 99% 03/01/2019 3:01 PM CDT Oxygen Saturation - - Inhaled Oxygen Concentration 94.7 kg (208 lb 12.8 oz) 03/01/2019 3:01 PM CDT Weight 175.3 cm (5' 9") 03/01/2019 3:01 PM CDT Height 30.83 03/01/2019 3:01 PM CDT Body Mass Index documented in [...] as of this encounter Progress Notes * Jazmín Stark PA-C - 03/01/2019 3:00 PM CDT Name: Caridad Schaeffer : 1960 AGE: 59 y.o . DATE OF SERVICE: 03/01/2019 Reason for Visit: Heme/Onc Care Caridad Schaeffer is a 59 y.o. female. Cancer Staging Malignant neoplasm of left breast in female, estrogen receptor positive (HCC) Staging form: Breast, AJCC 8th Edition - Clinical stage from 07/09/2018: Stage IA (cT1c, cN0, cM0, G2, ER: Positive, AL: Positive, HER2: Positive) - Signed by Jazmín Stark PA-C on 07/14/2018 - Pathologic stage from 08/12/2018: Stage IA (pT1c, pN0(sn), cM0, G3, ER+, AL+, H ER2-) - Signed by Jazmín Stark PA-C on 08/12/2018 DIAGNOSIS: Left grade 2 IDC (ER 95%, AL 55%, HER2 2+. HER2 by FISH Amplified) at 11:00. dx 06/2018 History of Present Illness Ms. Schaeffer presents to clinic today for routine 7 month follow up. She is doing w ell and has no breast or systemic concerns. HISTORY: Ms. Schaeffer is a female who presented [facility] on 07/14/2018 at age 58 for left breast cancer. She presented to screening mammogr am in [place] on 06/23/2018 when an abnormality was identified. Left diagnostic mammogram and ultrasound revealed a mass at 11:00 measuring 14 mm x 9mm x 11 mm. She underwent sono-guided biopsy which revealed grade 2 invasive ductal carci noma. She proceeded with Bilateral Skin Sparing mastectomy/Left SLNB on 9. Final surgical pathology revealed on the right-benign, on the left- grade 3 IDC measuring 1.7 cm with clear margins and 0/4 lymph nodes. She completed adju vant chemotherapy of weekly Taxol with Herceptin from 09/02/2018-11/17/18 and then continued on Herceptin maintenance. BREAST IMAGING: Mammogram: - Screening mammogram 06/23/2018 ([facility]) revealed scattered fibrog landular densities were identified bilaterally. There was an area of increased density identified in the retroareolar aspect of the left breast medially which appear more prominent when compared with prior mammograms. There appears to be some questionable spiculation and architectural distortion. Additional views we re recommended. No suspicious microcalcifications were identified. The right b reast was unremarkable. The axillae were unremarkable. - Left diagnostic mammogram 07/01/2018 ([facility]) revealed persisten t irregular density in the medial and upper aspect of the left breast, approxima tely 3 cm FTN. No associated soft tissue calcifications were seen. There does appear to be some questionable spiculation and architectural distortion present. - Left diagnostic mammogram 07/14/2018 () revealed a 1.5 x 1.2 cm mass with obs cured margins in the upper inner left breast at anterior depth consistent with b iopsy-proven malignancy. An S-shaped biopsy clip was in good position. No addit ional suspicious abnormality was identified in the left breast. Ultrasound: - Left targeted ultrasound 07/01/2018 ([facility]) revealed a hypoech oic mass at the 11:00 location left breast 2 cm FTN measuring 14 mm x 9mm x 11 m m. This has somewhat angular margins. This does show some internal vascularity . No significant posterior acoustic enhancement was seen. - Left targeted ultrasound 07/14/2018 ([facility]) revealed at 11:00, 2 cm the nipple, th ere is an irregular hypoechoic mass with angular margins measuring 2.0 x 1.3 x 1 .8 cm with surrounding postbiopsy change consistent with biopsy-proven left yolette st malignancy. The mass was located superficially within the breast, approximate ly 4 mm the deep to the cutaneous surface. Surrounding postbiopsy change may con tribute to size discrepancy when compared with outside ultrasound measurements. No morphologically suspicious left axillary lymph nodes were identified. REPRODUCTIVE HEALTH: Age at first Menarche: 13 Age at First Live : 21 Age at Menopause: 52 : 4 Para: 3 : yes PROCEDURE: BSSM/L. SLNB with implant reconstruction 08/03/2018 ([facility] ) PERTINENT PMH: Non-contributory FAMILY HISTORY: Mother-breast cancer (57), Colon Cancer. Paternal Aunt- breast cancer. No family history of ovarian cancer. MEDICAL ONCOLOGY: Dr. Christie Adjuvant chemotherapy: Weekly Taxol with Hercep tin completed 09/02/2018-11/17/18 Present Therapy: Herceptin maintenance until 08/17 020, Femara started 11/2018, switched to Aromasin 02/2019 REFERRED BY: Dr. Meghan eDl Rosario Review of Systems Constitutional: Negative for fever, chills, appetite change and fatigue. HENT: Negative for hearing loss, congestion, rhinorrhea and tinnitus. Eyes: Negative for pain, discharge and itching. Respiratory: Negative for cough, chest tightness and shortness of breath. Cardiovascular: Negative for chest pain and palpitations. Gastrointestinal: Negative for abdominal distention, pain, nausea, vomiting, and diarrhea. Genitourinary: Negative for frequency, vaginal bleeding, difficulty urinating an d pelvic pain. Musculoskeletal: Negative for myalgias, back pain, joint swelling and arthralgia s. Skin: Negative for rash. Neurological: Negative for dizziness, weakness, light-headedness and headaches. Hematological: Does not bruise/bleed easily. Psychiatric/Behavioral: Negative for disturbed wake/sleep cycle. The patient is not nervous/anxious. No Known Allergies The following medical/surgical/family/social history and the list of medications are current, as of 03/01/2019 Medical History: Diagnosis Date Anxiety and depression History of left breast cancer 07/09/2018 IDC grade 2 Surgical History: Procedure Laterality Date HX TONSILLECTOMY 1967 childhood HX MENISCECTOMY Left 2012 2012 COLONOSCOPY 2016 MASTECTOMY Bilateral 08/03/2018 BILATERAL SKIN SPARING MASTECTOMIES performed by Chandrika House MD at [facility] O R/PERIOP LYMPH NODE BIOPSY Left 08/03/2018 LEFT SENTINEL NODE BIOPSY performed by Chandrika House MD at [facility] OR/PERIOP Family History Problem Relation Age of Onset [...] Not on file 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 In dications: visible water retention glucosam/chond-msm1/C/williams/bor ([id number]-[id number]-SLO COMPLEX PO) Take 1 tab let by mouth daily. lidocaine/prilocaine (EMLA) 2.5/2.5 % topical cream Apply topically to affe cted area as Needed. Apply to port a cath site about 30 - 45 min before access. other medication Take 1 Dose by mouth daily. Vibe, energy supplement vitamins, multi w/minerals 27-0.4 mg tab Take 1 tablet by mouth daily. Vitals: 03/01/19 1501 BP: 111/69 Pulse: 82 Temp: 36.5 C (97.7 F) TempSrc: Oral SpO2: 99% Weight: 94.7 kg (208 lb 12.8 oz) Height: 175.3 cm (69") Body mass index is 30.83 kg/m. Pain Score: Zero Fatigue Scale: 7 Pain Addressed: N/A Patient Evaluated for a Clinical Trial: No treatment clinical trial available fo r this patient. Eastern Cooperative Oncology Group performance status is 0, Fully active, able t o carry on all pre-disease performance without restriction.. Physical Exam Pulmonary/Chest: Vitals reviewed. RIGHT BREAST EXAM: Breast: Consistent with mastectomy and implant reconstruction. No skin abnorma lity. No palpable mass. Skin Erythema: No Attachment of Overlying Skin: No Peau d' orange: No Chest Wall Attachment: No LEFT BREAST EXAM: Breast: Consistent with mastectomy and implant reconstruction. No skin abnormal ity. No palpable mass. Skin Erythema: No Attachment of Overlying Skin: No Peau d' orange: No Chest Wall Attachment: No RIGHT MOISÉS BASIN EXAM: Axillary: negative Infraclavicular: negative Supraclavicular: negative LEFT MOISÉS BASIN EXAM: Axillary: negative Infraclavicular: negative Supraclavicular: negative Constitutional: No acute distress. HEENT: Head: Normocephalic and atraumatic. Eyes: No discharge. No scleral icterus. Pulmonary/Chest: No respiratory distress. Neurological: Alert and oriented to person, place and time. No cranial nerve def icit. Skin: Warm and dry. No rash noted. No erythema. No pallor. Psychiatric: Normal mood and affect. Behavior is normal. Judgement and thought c ontent normal. Assessment and Plan: DIAGNOSIS: Left grade 2 IDC (ER 95%, AL 55%, HER2 2+. HER2 by FISH Amplified) at 11:00. dx 06/2018- JAS 7 months Ms. Schaeffer presents to clinic today for routine follow up. She has no evidence of local recurrence. She continues to follow with Dr. Christie and is completing a ye ar of Herceptin therapy. She was previously also on Femara but was experiencing disruptive side effects and reports she will be changing to Aromasin. She plans to follow up with Dr. Dotson tomorrow to discuss moving forward with fat graft ing. She had a BIS measurement today and will be contacted by lymphedema clinic with results. She had several concerns regarding lymphedema including restricti ons on activity. We discussed that she can proceed with her normal activity lev el at this point from a breast surgery stand point but was encouraged to listen to her body and not over due any repetitive motions. She was under the impressi on that she could no longer have pedicures. We discussed lymphatic pathways and causes of lymphedema and she was reassured that she can have pedicures without worry. She will return to clinic in 6 months. She was given ample time to ask questions all of which were answered to her satisfaction. She was encouraged to call with any interval questions or concerns. 1. Continue following with Dr. Christie 2. Continue following with Dr. Dotson 3. Return to clinic in 6 months Jazmín Stark PA-C * Lilliam Santizo LPN - 03/01/2019 3:00 PM CDT Bioimpedance Spectroscopy performed. Advised patient that Normal result will be sent within 24 hours by mail or via [employer] (preferred). The patient will be c ontacted via phone by the lymphedema nurse with any abnormal results. documented in this encounter Plan of Treatment Not on filedocumented as of this encounter Goals Goal Patient Associated Recent Progress Patient-Stat Aut hor Goal Type Problems ed? [facility] No Erna Rincon RN documented as of this encounter Visit Diagnoses Diagnosis Malignant neoplasm of upper-inner quadr ant of left breast in female, estrogen receptor positive (HCC) - Primary documented in this encounter
--- OUTSIDE RECORDS SUMMARY | 2019-05-15 23:40 | XMS REPORT | Encounter Summary ---
Author Author [facility] Address Unknown Phone Unavailable Care Team Providers Care Home Supervisor Name Role Phone Meghan Del Rosario MD PCP Encounter Details Care Team Description Date Type Department Ana Green APRN Forwarding Address Unknown 11/17/2018 [facility] [address] [place] [address] Social History Date Tobacco Use Types Packs/Day [...] Status Date of Assessment Functional Status Response 11/17/2018 Does the patient have a hearing impairment: No 11/17/2018 Does the patient have a visual impairment: Yes 11/17/2018 Does the patient have impaired ambulation: No 11/17/2018 Does the patient have an activity of daily living No (ADL) impairment: 11/17/2018 Does the patient have an instrumental activity of No daily living (IADL) impairment: Date of Assessment Cognitive Status Response 11/17/2018 Does the patient have a cognitive impairment: [...] Take 1 tablet 0 g/bor by mouth ([id number] daily. COMPLEX PO) 09/06/2018 12/02/2018 ondansetron (ZOFRAN) 8 mg Take one 30 tablet 2 tabletIndications: tablet by prevention of mouth every 8 chemotherapy-induced hours as nausea and vomiting needed for Nausea or Vomiting. Indications: Prevent Nausea and Vomiting from Cancer Chemotherapy 09/06/2018 12/02/2018 prochlorperazine maleate Take one 30 tablet 2 (COMPAZINE) 10 mg tablet tablet by mouth every 6 hours as needed for Nausea or Vomiting. documented as of this encounter Plan of Treatment Not on filedocumented as of this encounter Goals Goal Patient Associated Recent Progress Patient-Stat Aut hor Goal Type Problems ed? [facility] No Erna Rincon RN documented as of this encounter Procedures Comments Procedure Name Priority Date/Time Associated Diag nosis CBC AND DIFF Routine 11/17/2018 Malignant neopl asm of 8:40 AM CDT left breast in female, estrogen receptor positive, unspecified site of breast (HCC) COMPREHENSIVE METABOLIC Routine 11/17/2018 Malign ant neoplasm of PANEL 8:40 AM CDT left breast in fema le, estrogen receptor positive, unspecified site of breast (HCC) documented in this encounter Results * COMPREHENSIVE METABOLIC PANEL (11/17/2018 8:40 AM CDT) Sodium 139 137 - 147 MMOL/L [facility] Potassium 4.3 3.5 - 5.1 MMOL/L [facility] Chloride 108 98 - 110 MMOL/L [facility] Glucose 96 70 - 100 MG/DL [facility] Blood Urea 13 7 - 25 MG/DL [facility] Nitrogen Creatinine 0.63 0.4 - 1.00 MG/DL [facility] Calcium 9.0 8.5 - 10.6 MG/DL [facility] Total Protein 6.3 6.0 - 8.0 G/DL [facility] Total Bilirubin 0.3 0.3 - 1.2 MG/DL [facility] Albumin 3.9 3.5 - 5.0 G/DL [facility] Alk Phosphatase 60 25 - 110 U/L [facility] AST (SGOT) 23 7 - 40 U/L [facility] CO2 26 21 - 30 MMOL/L [facility] ALT (SGPT) 31 7 - 56 U/L [facility] Anion Gap 5 3 - 12 [facility] eGFR Non >60 >60 mL/min [facility] Comment: [place] The eGFR is not validated f or use in drug dosing adjustments. Continue to use estimated creatinine clearance per dosing reference text. Please contact the Clinical Pharmacist for questions. eGFR >60 >60 mL/min [facility] [place] Comment: The eGFR is not validated for use in drug dosing adjustments. Continue to use estimated creatinine clearance per dosing reference text. Please contact the Clinical Pharmacist for questions. Specimen Blood Performing Organization Address City/[facility] Ph [facility] Number [facility] [address] [place] [address] * CBC AND DIFF (11/17/2018 8:40 AM CDT) White Blood 3.8 (L) 4.5 - 11.0 K/UL [facility] [place] RBC 3.41 (L) 4.0 - 5.0 M/UL [facility] [place] Hemoglobin 10.5 (L) 12.0 - 15.0 GM/DL [facility] [place] Hematocrit 31.6 (L) 36 - 45 % [facility] [place] MCV 92.7 80 - 100 FL [facility] [place] MCH 30.9 26 - 34 PG [facility] [place] MCHC 33.4 32.0 - 36.0 G/DL [facility] [place] RDW 18.5 (H) 11 - 15 % [facility] [place] Platelet Count 281 150 - 400 K/UL [facility] [place] MPV 6.4 (L) 7 - 11 FL [facility] [place] Neutrophils 63 41 - 77 % [facility] [place] Lymphocytes 26 24 - 44 % [facility] [place] Monocytes 7 4 - 12 % [facility] [place] Eosinophils 3 0 - 5 % [facility] [place] Basophils 1 0 - 2 % [facility] [place] Absolute 2.40 1.8 - 7.0 K/UL [facility] Neutrophil [place] Count Absolute Lymph 1.00 1.0 - 4.8 K/UL [facility] Count [place] Absolute 0.30 0 - 0.80 K/UL [facility] Monocyte Count [place] Absolute 0.10 0 - 0.45 K/UL [facility] Eosinophil [place] Count Absolute 0.00 0 - 0.20 K/UL [facility] Basophil Count [place] Specimen Blood Performing Organization Address City/[facility]/Zipcode Ph one Number [facility] [place] [address] [place] [address] documented in this encounter Visit Diagnoses Diagnosis Malignant neoplasm of left breast in fe male, estrogen receptor positive, unspecified site of breast (HCC) - Primary documented in this encounter
--- OUTSIDE RECORDS SUMMARY | 2019-05-15 23:40 | XMS REPORT | Encounter Summary ---
Author Author [facility] Organization [facility] Address Unknown Phone Unavailable Care Team Providers Care Artificial Limb Maker Name Role Phone Meghan Del Rosario MD PCP Encounter Details Care Team Description [place] [address] [place] [address] Malignant neoplasm of upper-inner quadra nt of left breast in female, estrogen receptor positive (HCC) (Primary Dx) 11/30/2018 Orders Only [facility] [address] [place] [address] Social History Date Tobacco Use [...] Patient-Stat Aut hor Goal Type Problems ed? [facility] No Erna Rincon RN documented as of this encounter Results * COMPREHENSIVE METABOLIC PANEL (12/02/2018 9:27 AM CDT) Sodium 138 137 - 147 MMOL/L [facility] Potassium 4.2 3.5 - 5.1 MMOL/L [facility] Chloride 107 98 - 110 MMOL/L [facility] Glucose 91 70 - 100 MG/DL [facility] Blood Urea 16 7 - 25 MG/DL [facility] Nitrogen Creatinine 0.63 0.4 - 1.00 MG/DL [facility] Calcium 9.1 8.5 - 10.6 MG/DL [facility] Total Protein 6.3 6.0 - 8.0 G/DL [facility] Total Bilirubin 0.3 0.3 - 1.2 MG/DL [facility] Albumin 4.0 3.5 - 5.0 G/DL [facility] Alk Phosphatase 72 25 - 110 U/L [facility] AST (SGOT) 31 7 - 40 U/L [facility] CO2 26 21 - 30 MMOL/L [facility] ALT (SGPT) 49 7 - 56 U/L [facility] Anion Gap 5 3 - 12 [facility] eGFR Non >60 >60 mL/min [facility] Comment: [place] The eGFR is not validated f or use in drug dosing adjustments. Continue to use estimated creatinine clearance per dosing reference text. Please contact the Clinical Pharmacist for questions. eGFR >60 >60 mL/min [facility] [place] Comment: The eGFR is not validated for use in drug dosing adjustments. Continue to use estimated creatinine clearance per dosing reference text. Please contact the Clinical Pharmacist for questions. Specimen Blood Performing Organization Address City/State/Zipcode Ph one Number [facility] [address] [place] [address] * CBC AND DIFF (12/02/2018 9:27 AM CDT) White Blood 4.8 4.5 - 11.0 K/UL [facility] Cells [place] RBC 3.62 (L) 4.0 - 5.0 M/UL [facility] Hemoglobin 11.1 (L) 12.0 - 15.0 GM/DL [facility] Hematocrit 33.4 (L) 36 - 45 % [facility] MCV 92.3 80 - 100 FL [facility] MCH 30.8 26 - 34 PG [facility] MCHC 33.3 32.0 - 36.0 G/DL [facility] RDW 18.3 (H) 11 - 15 % [facility] Platelet Count 245 150 - 400 K/UL [facility] [place] MPV 6.3 (L) 7 - 11 FL [facility] Neutrophils 51 41 - 77 % [facility] [place] Lymphocytes 32 24 - 44 % [facility] Monocytes 13 (H) 4 - 12 % [facility] [place] Eosinophils 3 0 - 5 % [facility] Basophils 1 0 - 2 % [facility] [place] Absolute 2.40 1.8 - 7.0 K/UL [facility] Neutrophil [place] Count Absolute Lymph 1.50 1.0 - 4.8 K/UL [facility] Count [place] Absolute 0.60 0 - 0.80 K/UL [facility] Monocyte Count [place] Absolute 0.10 0 - 0.45 K/UL [facility] Eosinophil [place] Count Absolute 0.00 0 - 0.20 K/UL [facility] Basophil Count [place] Specimen Blood Performing Organization Address City/State/Zipcode Ph one Number [facility] [place] [address] [place] [address] documented in this encounter Visit Diagnoses Diagnosis Malignant neoplasm of upper-inner quadr ant of left breast in female, estrogen receptor positive (HCC) - Primary documented in this encounter
--- OUTSIDE RECORDS SUMMARY | 2019-05-15 23:40 | XMS REPORT | Encounter Summary ---
Author Author [facility] Organization [facility] Address Unknown Phone Unavailable Care Team Providers Care Senior Java [id number] Developer Name Role Phone Meghan Del Rosario MD PCP Reason for Referral * Test (Routine) Referred By Contact Referred To Contact Status Reason Specialty Diagnoses / [place] [address] [place] [address] Cvm [id number] Echo/Pv [address] [place] [address] No Auth Needed Cardiology Diagnoses Malignant neoplasm of upper-inner quadrant of left breast in female, estrogen receptor positive (HCC) P rocedures 2-D ECHOCARDIOGRAM ONLY NV ECHO TRANSTHORAC R-T 2D W/WO M-MODE REC COMP Reason for Visit * Test (Routine) Referred By Contact Referred To Contact Status Reason Specialty Diagnoses / [place] [address] [address] Cvm Cmpc3 Echo/Pv [address] [place] [address] No Auth Needed Cardiology Diagnoses Malignant neoplasm of upper-inner quadrant of left breast in female, estrogen receptor positive (HCC) P rocedures 2-D ECHOCARDIOGRAM ONLY NV ECHO TRANSTHORAC R-T 2D W/WO M-MODE REC COMP Encounter Details Care Team Description Date [place] [address] [place] [address] [phone] 11/16/2018 [facility] [address] [place] [address] Social History Date Tobacco Use Types Packs/Day [...] Signs Reading Time Taken Comments Vital Sign 126/72 11/16/2018 3:31 PM CDT Blood Pressure - - Pulse - - Temperature - - Respiratory Rate - - Oxygen Saturation - - Inhaled Oxygen Concentration 98 kg (216 lb) 11/16/2018 3:31 PM CDT Weight 175.3 cm (5' 9") 11/16/2018 3:31 PM CDT Height 31.9 11/16/2018 3:31 PM CDT Body Mass Index documented in this encounter Functional Status Date of Assessment Functional Status Response 11/11/2018 Does the patient have a hearing impairment: No 11/11/2018 Does the patient have a visual impairment: Yes 11/11/2018 Does the patient have impaired ambulation: No 11/11/2018 Does the patient have an activity of daily living No (ADL) impairment: 11/11/2018 Does the patient have an instrumental activity of No daily living (IADL) impairment: Date of Assessment Cognitive Status Response 11/11/2018 Does the patient have a cognitive impairment: [...] Take 1 tablet 0 g/bor by mouth ([id number] daily. COMPLEX PO) 09/06/2018 12/02/2018 ondansetron (ZOFRAN) [...] Patient-Stat Aut hor Goal Type Problems ed? [facility] No Erna Rincon RN documented as of this encounter Procedures Comments Procedure Name Priority Date/Time Associated Diag nosis 2-D ECHOCARDIOGRAM ONLY Routine 11/16/2018 Malign ant neoplasm of 3:31 PM CDT upper-inner quadrant of left breast in female, estrogen receptor positive (HCC) documented in this encounter Results * 2-D ECHOCARDIOGRAM ONLY (11/16/2018 3:31 PM CDT) IVS 0.76 0.6 - 0.9 cm [facility] LVIDD 3.86 3.8 - 5.2 cm [facility] LVIDS 2.63 2.2 - 3.5 cm [facility] PW 0.88 0.6 - 0.9 cm OTHER [facility] LAB Left Ventricle 66.15 46 - 106 mL OTHER OUTSIDE Diastolic LAB Volume Left Ventricle 30.34 29 - 61 mL OTHER OUTSIDE Diastolic LAB Volume Index Left Ventricle 28.42 14 - 42 mL OTHER OUTSIDE Systolic Volume LAB Left Ventricle 13.04 8 - 24 mL OTHER OUTSIDE Systolic Volume LAB Index Right 2.43 1.9 - 3.5 cm OTHER OUTSIDE Ventricular Mid LAB Diameter LA size 3.28 2.7 - 3.8 cm OTHER OUTSIDE LAB LA volume 41.32 22 - 52 mL OTHER OUT[facility]IDE LAB Right Atrial 13.34 <18 cm2 OTHER OUTSIDE Area LAB Right Atrial 4.00 2.2 - 2.8 cm OTHER OUTSIDE Major Dimension LAB Right 3.83 2.5 - 4.1 cm OTHER OUTSIDE Ventricular LAB Basal Diameter Right Heart 2.05 >1.7 cm OTHER OUTSIDE Systolic Mmode LAB TAPSE Sinus 3.33 2.4 - 3.6 cm OTHER OUTSIDE LAB BSA 2.18 m2 OTHER OUT[facility]IDE LAB Referring Duran Christie OTHER OUTSIDE Provider LAB FS 31.87 28 - 44 % [facility] EF 54.17 % OTHER OUT[facility]IDE LAB LV mass 91.17 66 - 150 g OTHER OUT[facility] LAB RWT 0.46 <=0.42 OTHER OUTSIDE LAB Left Atrium 18.95 16 - 34 OTHER OUTSIDE Index LAB Cardiology Siemens [id number] OTHER OUTSIDE Ultrasound LAB Machine Left Ventricle 41.82 44 - 88 g/m2 OTHER OUTSIDE Mass Index LAB ECHO EF 60 % OTHER [facility] LAB Specimen Narrative Performed At OTHER OUTSIDE LAB Limited study for evaluation of LV cont ractility. Normal LV contractility. LVEF 60%. Normal right ventricular contractility. Pulmonary artery, pulmonic valve, and a ortic arch are not well visualized. Normal mitral, tricuspid, and aortic va lve motion. Thierno Andrea Performing Organization Address City/State[facility] Ph one Number [facility] documented in this encounter Visit Diagnoses Diagnosis Malignant neoplasm of upper-inner quadr ant of left breast in female, estrogen receptor positive (HCC) documented in this encounter
--- OUTSIDE RECORDS SUMMARY | 2019-05-15 23:40 | XMS REPORT | Encounter Summary ---
Author Author [facility] Organization [facility] Address Unknown Phone Unavailable Care Team Providers Care Shuttle Truck Driver Name Role Phone Meghan Del Rosario MD PCP Reason for Visit * Reason Comments Treatment Cancer * Treatment (Routine) Referred By Contact Referred To Contact Status Reason Specialty Diagnoses / [place] [address] [place] [address] [place] [address] [place] [address] Authorized Hematology & Diagnoses Oncology / Malignant neoplasm Hematology and of upper-inner Oncology quadrant of left female breast (HCC) Estrogen receptor positive status (ER+) P rocedures trastuzumab (HERCEPTIN) Encounter Details Care Team Description [place] [address] [place] [address] [phone] 12/23/2018 [facility] [address] [place] [address] Social History Date Tobacco Use Types [...] Signs Reading Time Taken Comments Vital Sign 127/69 12/23/2018 12:59 PM CDT Blood Pressure 88 12/23/2018 12:59 PM CDT Pulse 36.7 C (98 F) 12/23/2018 12:59 PM CDT Temperature 18 12/23/2018 12:59 PM CDT Respiratory Rate 100% 12/23/2018 12:59 PM CDT Oxygen Saturation - - Inhaled Oxygen Concentration 97.7 kg (215 lb 6.4 oz) 12/23/2018 12:59 PM CDT Weight 175.3 cm (5' 9") 12/23/2018 12:59 PM CDT Height 31.81 12/23/2018 12:59 PM CDT Body Mass Index documented in this encounter Functional Status Date of Assessment Functional Status Response 12/02/2018 Does the patient have a hearing impairment: No 12/02/2018 Does the patient have a visual impairment: Yes 12/02/2018 Does the patient have impaired ambulation: No 12/02/2018 Does the patient have an activity of daily living No (ADL) impairment: 12/02/2018 Does the patient have an instrumental activity of No daily living (IADL) impairment: Date of Assessment Cognitive Status Response 12/02/2018 Does the patient have a cognitive impairment: No documented as of this encounter Discharge Instructions * Patient Instructions* Yolette Dominguez RN - 12/23/2018 3:59 PM CDT Call Immediately to report the following: Uncontrolled nausea and/or vomiting, uncontrolled pain, or unusual bleeding. Temperature of 100.4 F or greater and/or any sign/symptom of infection (redness, warmth, tenderness) Painful mouth or difficulty swallowing Red, cracked, or painful hands and/or feet Diarrhea Swelling of arms or legs Rash Important Phone Numbers: [facility] Main Number (answered 24 hours a day) [phone] Cancer Center Scheduling (appointments) [phone] OR [phone] Cancer Action (for nutritional supplements) [phone] Port Maintenance - If you have a port, it should be flushed every 6-8 weeks when not in use. Please check with your MD, nurse, or the dough molder. documented in this encounter Medications at Time [...] Take 1 tablet 0 g/bor by mouth ([id number] daily. COMPLEX PO) 12/02/2018 02/24/2019 letrozole (FEMARA) 2.5 mg Take one 90 tablet 3 tablet tablet by mouth daily. documented as of this encounter Progress Notes * Yolette Dominguez RN - 12/23/2018 2:14 PM CDT Cycle 2 Day 1 Herceptin Labs drawn from port. Patient c/o worsening fatigue and occasional nausea since she started Femara. S he will try taking with food and talk to Dr. Christie at next visit. Herceptin given per plan and tolerated well. Discharged in good condition, ambulatory, accompanied by friends. CHEMO NOTE Verified chemo consent signed and in chart. BSA and dose double checked (agree with orders as written). Arm band verified at bedside with second RN. Premedications/Prehydration given as ordered. Chemo drug/dose/route: see MAR Rate verified with second RN. Patient education offered and stated understanding. documented in this encounter Miscellaneous Notes * Addendum Note - Melani Martinez - 12/27/2018 12:04 PM CDT Encounter addended by: Melani Martinez on: 12/27/2018 12:04 PM Actions taken: Charge Capture section accepted documented in this encounter Plan of Treatment Not on filedocumented as of this encounter Goals Goal Patient Associated Recent Progress Patient-Stat Aut hor Goal Type Problems ed? [facility] No Erna Rincon RN documented as of this encounter Visit Diagnoses Diagnosis Malignant neoplasm of left breast in fe male, estrogen receptor positive, unspecified site of breast (HCC) - Primary documented in this encounter Administered Medications Action Date Dose Rate Site Medication Order MAR Action 12/23/2018 2:12 PM CDT 500 Units heparin lock flush PF syringe 500 Units Given 500 Units, Intra-catheter, ONCE, 1 dose , Humaira 12/23/18 at 1300, NOTE: This is a HIG H ALERT Medication., 12/23/2018 1:30 PM CDT 558 mg 553.1 mL/hr trastuzumab (HERCEPTIN) 558 mg in sodium Given - New chloride 0.9% (NS) 276.572 mL IVPB Bag 558 mg (6 mg/kg 93 kg Treatment plan recorded weight), Intravenous, 276.572 mL, Administer ove r 0.5 Hours, ONCE, 1 dose, Humaira 12/23/18 at 1345, NOTE: This is a HIGH ALERT Medication., documented in this encounter
--- OUTSIDE RECORDS SUMMARY | 2019-05-15 23:40 | XMS REPORT | Encounter Summary ---
Author Author [facility] Organization [facility] Address Unknown Phone Unavailable Care Team Providers Care Processing Associate Name Role Phone Meghan Del Rosario MD PCP Reason for Referral * Radiology Services (Routine) Referred By Contact Referred To Contact Status Reason Specialty Diagnoses / [place] [address] [address] New Request Radiology Diagnoses Malignant neoplasm of left breast in female, estrogen receptor positive, unspecified site of breast (HCC) BARD1 gene mutation positive Menopause P rocedures BONE DENSITY SPINE/HIP Reason for Visit * Reason Comments Follow Up Encounter Details Care Team Description Date [place] [address] [address] Malignant neoplasm of left breast in fem keke, estrogen receptor positive, unspecified site of breast (HCC) (Primary Dx); BARD1 gene mutation positive; Menopause 12/02/2018 Office Visit [facility] [address] [address] Social History Date Tobacco Use [...] Signs Reading Time Taken Comments Vital Sign 112/70 12/02/2018 9:33 AM CDT Blood Pressure 93 12/02/2018 9:33 AM CDT Pulse 36.6 C (97.9 F) 12/02/2018 9:33 AM CDT Temperature 18 12/02/2018 9:33 AM CDT Respiratory Rate 100% 12/02/2018 9:33 AM CDT Oxygen Saturation - - Inhaled Oxygen Concentration 97.5 kg (215 lb) 12/02/2018 9:37 AM CDT Weight 175.3 cm (5' 9") 12/02/2018 9:37 AM CDT Height 31.75 12/02/2018 9:37 AM CDT Body Mass Index documented in [...] as of this encounter Progress Notes * Natividad Almeida - 12/02/2018 9:45 AM CDT BONE DENSITY 01/04/19@10:30 VIA VERN. ORDER GIVEN AND FAXED TO FACILITY---RGL * Duran Christie MD - 12/02/2018 9:45 AM CDT Name: Caridad Schaeffer : 1960 AGE: 58 y.o . DATE OF SERVICE: 12/02/2018 Subjective: Reason for Visit: Follow Up Caridad Schaeffer is a 58 y.o. female. Cancer Staging Malignant neoplasm of left breast in female, estrogen receptor positive (HCC) Staging form: Breast, AJCC 8th Edition - Clinical stage from 07/09/2018: Stage IA (cT1c, cN0, cM0, G2, ER: Positive, HI: Positive, HER2: Positive) - Signed by Jazmín Stark PA-C on 07/14/2018 - Pathologic stage from 08/12/2018: Stage IA (pT1c, pN0(sn), cM0, G3, ER+, HI+, H ER2-) - Signed by Jazmín Stark [...] breast progno stic profile showed ER 95%, HI 55%, HER-2 was 2+ by IHC but positive by FISH. 5. Bilateral Mastectomy by Dr. House 08/03/[address] Sun massey 6. Pathology: RIGHT mastectomy - benign LEFT mastectomy -IDC, grad e III,1.7cm; margins clear 0/4 nodes; er/pr positive, her 2 negative, ki 67 20 % 7. 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 8.Weekly Taxol with Herceptin started 09/02/2018-11/17/18 and then continued on Herceptin maintenance starting 12/02/2018 Past medical history: Vasomotor symptoms. Past surgical history, tonsillectomy and knee meniscus surgery. Social history: She lives with her denies any smoking or drug abuse. 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 Interval History: Arabella presents for follow-up of her breast cancer. She is recovering well from the Taxol chemotherapy. She does have some numbness on the tips of her fingers in the sole of her thumb. She is taking B6, B12 and alpha lipoic acid. Review of Systems Constitutional: Negative for activity [...] stiffnes s. Skin: Negative for rash. Neurological: Positive for numbness. Negative for dizziness and light-headedness . Hematological: Negative for adenopathy. Does not bruise/bleed [...] needed. In dications: visible water retention glucosam/chond-msm1/C/williams/bor ([id number]-YZGBN-ETG COMPLEX PO) Take 1 tab let by mouth daily. lidocaine/prilocaine (EMLA) 2.5/2.5 % topical cream Apply topically to affe cted area as Needed. Apply to port a cath site about 30 - 45 min before access. ondansetron (ZOFRAN) 8 mg tablet Take one tablet by mouth every 8 hours as n eeded for Nausea or Vomiting. Indications: Prevent Nausea and Vomiting from Canc er Chemotherapy other medication Take 1 Dose by mouth daily. Vibe, energy supplement prochlorperazine maleate (COMPAZINE) 10 mg tablet Take one tablet by mouth e very 6 hours as needed for Nausea or Vomiting. vitamins, multi w/minerals 27-0.4 mg tab Take 1 tablet by mouth daily. Vitals: 12/02/18 0933 12/02/18 0937 BP: 112/70 Pulse: 93 Resp: 18 Temp: 36.6 C (97.9 F) TempSrc: Oral Oral SpO2: 100% Weight: 97.5 kg (215 lb) 97.5 kg (215 lb) Height: 175.3 cm (69") 175.3 cm (69") Body mass index is 31.75 kg/m. Pain Score: Zero Fatigue Scale: 0-None [...] edema. Lymphadenopathy: She has no cervical adenopathy. She has no axillary adenopathy. Right: No inguinal, no supraclavicular and no epitrochlear adenopathy prese nt. Left: No inguinal, no supraclavicular and no epitrochlear adenopathy presen t. Neurological: She is alert and oriented to person, place, and time. Assessment and Plan: Left breast cancer ER/HI positive, HER-2 2+ by IHC and positive by FISH on biops y. Definitive pathology showed a 1.7 cm tumor ER/HI positive, HER-2/zuly negati ve. We will continue Herceptin. Her echo from November 16 showed a normal ejection fraction and we will repeat in February. We will initiate adjuvant endocrine th erapy as well. We had detailed discussion of aromatase inhibitors and tamoxifen . After discussion we will proceed with alessandro. Vaginal bleeding. She did have a pelvic ultrasound that was unremarkable. Bone health. I have instructed her take calcium with vitamin D and perform weig htbearing exercises. I did also order a baseline bone density as Alessandro can red uce her bone density. documented in this encounter Plan of Treatment Not on filedocumented as of this encounter Goals Goal Patient Associated Recent Progress Patient-Stat Aut hor Goal Type Problems ed? [facility] No Erna Rincon RN documented [...] >60 >60 mL/min [facility] Comment: [place] The eGFR is not validated f or use in drug dosing adjustments. Continue to use estimated creatinine clearance per dosing reference text. Please contact the Clinical Pharmacist for questions. eGFR >60 >60 mL/min [facility] [place] Comment: The eGFR is not validated for use in drug dosing adjustments. Continue to use estimated creatinine clearance per dosing reference text. Please contact the Clinical Pharmacist for questions. Specimen Blood Performing Organization Address City/State/Zipcode Ph one Number [facility] [address] [place] [address] * CBC AND DIFF (01/13/2019 10:00 AM CDT) White Blood 5.1 4.5 - 11.0 K/UL [facility] Cells [place] RBC 4.02 4.0 - 5.0 M/UL [facility] [place] Hemoglobin 11.9 (L) 12.0 - 15.0 GM/DL [facility] [place] Hematocrit 36.0 36 - 45 % [facility] [place] MCV 89.6 80 - 100 FL [facility] [place] MCH 29.7 26 - 34 PG [facility] [place] MCHC 33.1 32.0 - 36.0 G/DL [facility] [place] RDW 14.8 11 - 15 % [facility] [place] Platelet Count 264 150 - 400 K/UL [facility] [place] MPV 6.6 (L) 7 - 11 FL [facility] [place] Neutrophils 49 41 - 77 % [facility] [place] Lymphocytes 37 24 - 44 % [facility] [place] Monocytes 10 4 - 12 % [facility] [place] Eosinophils 3 0 - 5 % [facility] [place] Basophils 1 0 - 2 % [facility] [place] Absolute 2.60 1.8 - 7.0 K/UL [facility] Neutrophil [...] Performing Organization Address City/State/Zipcode Ph one Number [facility] [place] [address] [address] * BONE DENSITY SPINE/HIP (01/04/2019) Narrative Performed At This result has an attachment that is n ot available. Performing Organization Address City/State/Zipcode Ph one Number [facility] [address] [phone] [place] documented in this encounter Visit Diagnoses Diagnosis Malignant neoplasm of left breast in fe male, estrogen receptor positive, unspecified site of breast (HCC) - Primary BARD1 gene mutation positive Menopause Asymptomatic postmenopausal status (age -related) (natural) documented in this encounter
--- OUTSIDE RECORDS SUMMARY | 2019-05-15 23:40 | XMS REPORT | Encounter Summary ---
Author Author [facility] Organization [facility] Address Unknown Phone Unavailable Care Team Providers Care Last Code Striper Name Role Phone Meghan Del Rosario MD PCP Reason for Visit * Reason Comments Heme/Onc Care Encounter Details Care Team Description Date Type Department Ana Green APRN Forwarding Address Unknown Malignant neoplasm of left breast in fem keke, estrogen receptor positive, unspecified site of breast (HCC) (Primary Dx) 11/17/2018 Office Visit [facility] [address] [place] [address] Social History Date Tobacco Use [...] Signs Reading Time Taken Comments Vital Sign 121/83 11/17/2018 8:42 AM CDT Blood Pressure 87 11/17/2018 8:42 AM CDT Pulse 36.7 C (98.1 F) 11/17/2018 8:42 AM CDT Temperature 18 11/17/2018 8:42 AM CDT Respiratory Rate 99% 11/17/2018 8:42 AM CDT Oxygen Saturation - - Inhaled Oxygen Concentration 97.6 kg (215 lb 3.2 oz) 11/17/2018 8:42 AM CDT Weight 175.3 cm (5' 9") 11/17/2018 8:42 AM CDT Height 31.78 11/17/2018 8:42 AM CDT Body Mass Index documented in [...] as of this encounter Progress Notes * Ana Green APRN - 11/17/2018 9:00 AM CDT Name: Caridad Schaeffer : 1960 AGE: 58 y.o . DATE OF SERVICE: 11/17/2018 Subjective: Reason for Visit: Treatment Caridad Schaeffer is a 58 y.o. female. Cancer Staging Malignant neoplasm of left breast in female, estrogen receptor positive (HCC) Staging form: Breast, AJCC 8th Edition - Clinical stage from 07/09/2018: Stage IA (cT1c, cN0, cM0, G2, ER: Positive, SD: Positive, HER2: Positive) - Signed by Jazmín Stark PA-C on 07/14/2018 - Pathologic stage from 08/12/2018: Stage IA (pT1c, pN0(sn), cM0, G3, ER+, SD+, H ER2-) - Signed by Jazmín Stark PA-C on 08/12/2018 History of Present Illness Left breast cancer. 1. Bilateral screening mammogram on 06/23/2018 that showed a left breast density in the retroareolar area volar and slightly medial area. 2. 07/01/2018 left breast ultrasound showed a 14 mm x 9 mm x 11 mm lesion suspic ious. 3. Diagnostic mammogram showed persistent irregular density. 4. Biopsy that showed invasive ductal carcinoma, grade 2. The breast prognost ic profile showed ER 95%, SD 55%, HER-2 was 2+ by IHC but positive by FISH. 5. Bilateral Mastectomy by Dr. House 08/03/[address] Felipa smith 6. Pathology: RIGHT mastectomy - benign LEFT mastectomy - IDC, grade III,1.7cm; margins clear 0/4 nodes; er/pr positive, her 2 negative, ki 67 20% 7. Genetics appt 08/19/18 2 D echo: 09/02/18 - LVEF 60%, 11/16/18 - LVEF 60%. 09/02/18 - started TH. Past medical history: Vasomotor symptoms. Past surgical history, tonsillectomy and knee meniscus surgery. Social history: She lives with her denies any smoking or drug abuse. 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 Interval Summary Arabella presented to the clinic accompanied by her sister for her last cycle of T axol today. She is fatigued, but otherwise doing very well. She does have a rash on her back, which is not bothersome, but thought she would mention it. Very mi ld neuropathy in her fingertips, which is not bothersome. She is going to be goi ng out of state in a few weeks as her daughter is having a baby, so will move ba ck her first cycle of maintenance herceptin by one week. Review of Systems Constitutional: Positive for fatigue. Skin: Positive for rash. Neurological: Positive for numbness. All other systems reviewed and are negative. Objective: acetaminophen (TYLENOL) 325 mg tablet Take [...] needed. In dications: visible water retention glucosam/chond-msm1/C/williams/bor ([id number]-JVUHC-UPE COMPLEX PO) Take 1 tab let by [...] Take 1 tablet by mouth daily. Vitals: 11/17/18 0842 BP: 121/83 Pulse: 87 Resp: 18 Temp: 36.7 C (98.1 F) TempSrc: Oral SpO2: 99% Weight: 97.6 kg (215 lb 3.2 oz) Height: 175.3 cm (69") Body mass index is 31.78 kg/m. Pain Score: Zero Pain Addressed: N/A Patient Evaluated for a Clinical Trial: No treatment clinical trial available fo r this patient. Eastern Cooperative Oncology Group performance status is 0, Fully active, able t o carry on all pre-disease performance without restriction.. Physical Exam Constitutional: She is oriented to person, place, and time. She appears well-dev eloped and well-nourished. No distress. No acute distress today. HENT: Head: Normocephalic and atraumatic. Nose: Nose normal. Mouth/Throat: Oropharynx is clear and moist. Eyes: Pupils are equal, round, and reactive to light. Conjunctivae and EOM are n ormal. No scleral icterus. Neck: Normal range of motion. Neck supple. Cardiovascular: Normal rate, regular rhythm and intact distal pulses. Pulmonary/Chest: Effort normal and breath sounds normal. She exhibits no tendern ess. Abdominal: Soft. Bowel sounds are normal. There is no tenderness. Musculoskeletal: Normal range of motion. She exhibits no edema or tenderness. Lymphadenopathy: Head (right side): No submental, no submandibular, no tonsillar, no preauri cular, no posterior auricular and no occipital adenopathy present. Head (left side): No submental, no submandibular, no tonsillar, no preauric ular, no posterior auricular and no occipital adenopathy present. She has no cervical adenopathy. Right cervical: No superficial cervical, no deep cervical and no posterior cervical adenopathy present. Left cervical: No superficial cervical, no deep cervical and no posterior c ervical adenopathy present. She has no axillary adenopathy. Right: No supraclavicular and no epitrochlear adenopathy present. Left: No supraclavicular and no epitrochlear adenopathy present. Neurological: She is alert and oriented to person, place, and time. She has norm al strength. GCS eye subscore is 4. GCS verbal subscore is 5. GCS motor subscore is 6. Numbness - fingertips 2/2 taxol Skin: Skin is warm and dry. Rash noted. Psychiatric: She has a normal mood and affect. Her behavior is normal. Judgment and thought content normal. Vitals reviewed. CBC w diff CBC with Diff Latest Ref Rng & Units 11/17/2018 11/11/2018 11/04/2018 10/28/2018 10/21/2018 WBC 4.5 - 11.0 K/UL 3.8(L) 4.7 5.0 5.0 6.6 RBC 4.0 - 5.0 M/UL 3.41(L) 3.45(L) 3.52(L) 3.63(L) 3.49(L) HGB 12.0 - 15.0 GM/DL 10.5(L) 10.7(L) 10.9(L) 10.9(L) 10.7(L) HCT 36 - 45 % 31.6(L) 31.8(L) 32.2(L) 32.7(L) 31.5(L) MCV 80 - 100 FL 92.7 92.1 91.3 90.1 90.3 MCH 26 - 34 PG 30.9 31.0 31.1 30.0 30.5 MCHC 32.0 - 36.0 G/DL 33.4 33.6 34.0 33.4 33.8 RDW 11 - 15 % 18.5(H) 18.2(H) 17.9(H) 17.8(H) 16.9(H) PLT 150 - 400 K/UL 281 281 273 272 298 MPV 7 - 11 FL 6.4(L) 6.4(L) 6.5(L) 6.7(L) 6.6(L) NEUT 41 - 77 % 63 58 56 52 45 ANC 1.8 - 7.0 K/UL 2.40 2.80 2.80 2.70 3.00 LYMA 24 - 44 % 26 27 29 32 44 ALYM 1.0 - 4.8 K/UL 1.00 1.30 1.50 1.60 2.90 IRENE 4 - 12 % 7 9 9 11 8 AMONO 0 - 0.80 K/UL 0.30 0.40 0.40 0.50 0.60 EOSA 0 - 5 % 3 5 5 4 2 AEOS 0 - 0.45 K/UL 0.10 0.20 0.20 0.20 0.20 BASA 0 - 2 % 1 1 1 1 1 ABAS 0 - 0.20 K/UL 0.00 0.00 0.00 0.00 0.10 Assessment and Plan: Primary Diagnosis: Left breast cancer. 1. Bilateral screening mammogram on 06/23/2018 that showed a left breast density in the retroareolar area volar and slightly medial area. 2. 07/01/2018 left breast ultrasound showed a 14 mm x 9 mm x 11 mm lesion suspic ious. 3. Diagnostic mammogram showed persistent irregular density. 4. Biopsy that showed invasive ductal carcinoma, grade 2. The breast prognost ic profile showed ER 95%, SD 55%, HER-2 was 2+ by IHC but positive by FISH. 5. Bilateral Mastectomy by Dr. House 08/03/[address] Felipa smith 6. Pathology: RIGHT mastectomy - benign LEFT mastectomy - IDC, grade III,1.7cm; margins clear 0/4 nodes; er/pr positive, her 2 negative, ki 67 20% 7. Genetics appt 08/19/18 2 D echo: 09/02/18 - LVEF 60%. 09/03/18 - started TH (weekly taxol and 3 weekly herceptin) Plan: Arabella will continue with her cycle 4, day 15 of weekly Taxol (3 weekly herce ptin) today, tolerating tx well with some fatigue, numbness in her fingertips an d mild rash being her only complaint. Social: She has asked to move cycle 1 of herceptin only from 11/25 - 12/02 as h er daughter is having a baby out of state, and she is going to be with her. Heme: cbc - hgb 10.5 06/19 taxol, otherwise stable. cmp pending. Will repeat at next tx cycle, on 12/02/18.. Peripheral neuropathy: fingertips, really not bothering her too much. She is taking vit b complex, and may start taking vit b 6, alpha lipoic acid. Will quoc tor. 2 D echo: 11/16/18 - LVEF 60%, to repeat in february,. Not ordered or sche duled as yet. S/p bilateral mastectomy prior to starting chemo. She will have more fat richar ting in February,. RTC on 12/02/18 for cycle 1 of maintenance herceptin, labs and visit with dr. Suzette moe. Call with any new or worsening symptoms C DT documented in this encounter Plan of Treatment Not on filedocumented as of this encounter Goals Goal Patient Associated Recent Progress Patient-Stat Aut hor Goal Type Problems ed? [facility] No Erna Rincon, RN documented as of this encounter Visit Diagnoses Diagnosis Malignant neoplasm of left breast in fe male, estrogen receptor positive, unspecified site of breast (HCC) - Primary documented in this encounter
--- OUTSIDE RECORDS SUMMARY | 2019-05-15 23:40 | XMS REPORT | Encounter Summary ---
Author Author [facility] Organization [facility] Address Unknown Phone Unavailable Care Team Providers Care Acid Changer Name Role Phone Meghan Del Rosario MD PCP Reason for Visit * Reason Comments Treatment * Treatment (Routine) Referred By Contact Referred To Contact Status Reason Specialty Diagnoses / [place] [address] [place] [address] [place] [address] [place] [address] Closed Hematology & Diagnoses Oncology / Malignant neoplasm Hematology and of upper-inner Oncology quadrant of left female breast (HCC) Estrogen receptor positive status (ER+) P rocedures trastuzumab (HERCEPTIN) PACLitaxel (TAXOL) Encounter Details Care Team Description [place] [address] [place] [address] [phone] 12/02/2018 [facility] [address] [place] [address] Social History Date Tobacco Use Types [...] Take 1 tablet 0 g/bor by mouth ([id number] daily. COMPLEX PO) 12/02/2018 02/24/2019 letrozole (FEMARA) 2.5 mg Take one 90 tablet 3 tablet tablet by mouth daily. documented as of this encounter Progress Notes * Nick Garcia RN - 12/02/2018 2:55 PM CDT Pt arrived ambulatory in infusion room for port access, labs and infusion. Port accessed without difficulty, Labs drawn and reviewed, ok to treat. Herceptin 558mg infused via port over 30 min, pt well tolerated the infusion. Port flushed with 10 ml of NS and followed by 500 units of heparin per protocol. Port needle deaccessed and gauge and tape applied over the access site. CHEMO NOTE Verified chemo consent signed and in chart. Verified initiate chemo order in O2 Blood return positive via: port BSA and dose double checked (agree with orders as written) with: Yes Labs/applicable tests checked: EF Chemo regime: Drug/cycle/day Heceptin day 1 Rate verified and armband double checkwith second RN: yes Patient education offered and stated understanding. Denies questions at this nicolas e. documented in this encounter Miscellaneous Notes * Addendum Note - Melani Martinez - 12/06/2018 10:32 AM CDT Encounter addended by: Melani Martinez on: 12/06/2018 10:32 AM Actions taken: Charge Capture section accepted documented in this encounter Plan of Treatment Not on filedocumented as of this encounter Goals Goal Patient Associated Recent Progress Patient-Stat Aut hor Goal Type Problems ed? [facility] No Erna Rincon RN documented as of this encounter Visit Diagnoses Diagnosis Malignant neoplasm of left breast in fe male, estrogen receptor positive, unspecified site of breast (HCC) - Primary documented in this encounter Administered Medications Action Date Dose Rate Site Medication Order MAR Action 12/02/2018 2:49 PM CDT 500 Units heparin lock flush PF syringe 500 Units Given 500 Units, Intra-catheter, ONCE, 1 dose , Humaira 12/02/18 at 1500, NOTE: This is a HIGH ALERT Medication., 12/02/2018 10:32 AM CDT 558 mg 553.1 mL/hr trastuzumab (HERCEPTIN) 558 mg in sodium Given - New chloride 0.9% (NS) 276.572 mL IVPB Bag 558 mg (6 mg/kg 93 kg Treatment plan recorded weight), Intravenous, 276.572 mL, Administer ove r 0.5 Hours, ONCE, 1 dose, Humaira 12/02/18 at 1045, NOTE: This is a HIGH ALERT Medication., documented in this encounter
--- OUTSIDE RECORDS SUMMARY | 2019-05-15 23:40 | XMS REPORT | Encounter Summary ---
Author Author [facility] Organization [facility] Address Unknown Phone Unavailable Care Team Providers Care Piece Goods Clerk Name Role Phone Meghan Del Rosario MD PCP Encounter Details Care Team Description Date [place] [address] [place] [address] 12/01/2018 Orders Only [facility] [address] [place] [address] Social History Date Tobacco Use [...]
--- OUTSIDE RECORDS SUMMARY | 2019-05-15 23:40 | XMS REPORT | Encounter Summary ---
Author Author [facility] Organization [facility] Address Unknown Phone Unavailable Care Team Providers Care Trust Vault Custodian Name Role Phone Meghan Del Rosario MD PCP Reason for Visit * Reason Comments Cancer Treatment * Treatment (Routine) Referred By Contact Referred To Contact Status Reason Specialty Diagnoses / [place] [address] [place] [address] [place] [address] [place] [address] Authorized Hematology & Diagnoses Oncology / Malignant neoplasm Hematology and of upper-inner Oncology quadrant of left female breast (HCC) Estrogen receptor positive status (ER+) P rocedures trastuzumab (HERCEPTIN) Encounter Details Care Team Description Date Type Department Darrius Rodriguez DO [address] [address] [phone] 11/17/2018 [facility] [address] [place] [address] Social History Date Tobacco Use Types [...] * Patient Instructions* Mary Jaime RN - 11/17/2018 10:45 AM CDT Call Immediately to report the following: Uncontrolled nausea and/or vomiting, uncontrolled pain, or unusual bleeding. Temperature of 100.4 F or greater and/or any sign/symptom of infection (redness, warmth, tenderness) Painful mouth or difficulty swallowing Red, cracked, or painful hands and/or feet Diarrhea Swelling of arms or legs Rash Important Phone Numbers: Cancer Center Main Number (answered 24 hours a day) [phone] Cancer Center Scheduling (appointments) [phone] Cancer Action (for nutritional supplements) [phone] Port Maintenance - If you have a port, it should be flushed every 6-8 weeks when not in use. Please check with your MD, nurse, or the pulp grinder and blender. documented in this encounter Medications at Time [...] Take 1 tablet 0 g/bor by mouth ([id number]-TAK daily. COMPLEX PO) 09/06/2018 12/02/2018 ondansetron (ZOFRAN) [...] or Vomiting. documented as of this encounter Progress Notes * Mary Jaime RN - 11/17/2018 12:17 PM CDT Cycle 4 Day 15 TAXOL Port accessed, labs collected. Patient to follow up. OK to treat, labs OK to treat. Tolerated infusion well. Port de-accessed per protocol, heparinized. Patient is excited for the upcoming of her granddaughter this weekend! Discharged in stable condition. CHEMO NOTE Verified chemo consent signed and in chart. Verified initiate chemo order in O2 Blood return positive via: Port (Single and Accessed) BSA and dose double checked (agree with orders as written) with: yes Labs/applicable tests checked: CBC and Comprehensive Metabolic Panel (CMP) Chemo regime: Drug/cycle/day TAXOL C4 D15 Rate verified and armband double checkwith second RN: yes Patient education offered and stated understanding. Denies questions at this nicolas e. documented in this encounter Miscellaneous Notes * Addendum Note - Mishel Torres - 11/17/2018 11:59 PM CDT Encounter addended by: Mishel Torres on: 11/22/2018 12:27 PM Actions taken: Charge Capture section accepted documented in this encounter Plan of Treatment Not on filedocumented as of this encounter Goals Goal Patient Associated Recent Progress Patient-Stat Aut hor Goal Type Problems ed? [facility] No Erna Rincon, EBONI documented as of this encounter Visit Diagnoses Diagnosis Malignant neoplasm of left breast in fe male, estrogen receptor positive, unspecified site of breast (HCC) - Primary documented in this encounter Administered Medications Action Date Dose Rate Site Medication Order MAR Action 11/17/2018 9:29 AM CDT 6 mg dexAMETHasone (DECADRON) tablet 6 mg Given 6 mg, Oral, ONCE, 1 dose, Thu11/17/18 at 0915 11/17/2018 9:29 AM CDT 25 mg diphenhydrAMINE (BENADRYL) capsule 25 mg Given 25 mg, Oral, ONCE, 1 dose, Thu11/17/18 a t 9[address]11/17/2018 9:29 AM CDT 20 mg famotidine (PEPCID) tablet 20 mg Given 20 mg, Oral, ONCE, 1 dose, Thu11/17/18 a t [address]/17/2018 11:10 AM CDT 500 Units heparin lock flush PF syringe 500 Units Given 500 Units, Intra-catheter, ONCE, 1 dose , Thu11/17/18 at 0915, NOTE: This is a HIG H ALERT Medication., 11/17/2018 10:02 AM CDT 170.4 mg 278.4 mL/hr PACLitaxel (TAXOL) 170.4 mg in sodium Given - New chloride 0.9% (NS) 278.4 mL IVPB Bag (non-PVC) 170.4 mg (80 mg/m2 2.13 m2 Treatment plan recorded BSA), Intravenous, 278.4 mL, Administer over 1 Hours, ONCE, 1 dose, 11/17/18 at 0945 , SPECIAL TUBING REQUIRED NURSING: To be administered by Chemotherapy Competency-validated nurse. NOTE: This is a HIGH ALERT Medication., documented in this encounter
--- OUTSIDE RECORDS SUMMARY | 2019-05-15 23:40 | XMS REPORT | Encounter Summary ---
Author Author [facility] Organization [facility] Address Unknown Phone Unavailable Care Team Providers Care Recovery Analyst Name Role Phone Meghan Del Rosario MD PCP Encounter Details Care Team Description Date [place] [address] [place] [address] 12/23/2018 [facility] [address] [place], [place] [phone] Social History Date Tobacco Use Types Packs/Day [...] Take 1 tablet 0 g/bor by mouth ([id number]-WEKLL-HBQ daily. COMPLEX PO) 12/02/2018 02/24/2019 letrozole (FEMARA) 2.5 mg Take one 90 tablet 3 tablet tablet by mouth daily. documented as of this encounter Plan of Treatment Not on filedocumented as of this encounter Goals Goal Patient Associated Recent Progress Patient-Stat Aut hor Goal Type Problems ed? [facility] No Erna Rincon RN documented as of this encounter Visit Diagnoses Not on filedocumented in this encounter
--- OUTSIDE RECORDS SUMMARY | 2019-05-15 23:40 | XMS REPORT | Encounter Summary ---
Author Author [facility] Organization [facility] Address Unknown Phone Unavailable Care Team Providers Care Dock Worker Name Role Phone Meghan Del Rosario MD PCP Encounter Details Care Team Description Date [place] [address] [place] [address] 12/02/2018 [facility] [address] [place], [place] [phone] Social History Date Tobacco Use Types Packs/Day [...] Take 1 tablet 0 g/bor by mouth (MZZEQBVGQEE-[id number]-ZFV daily. COMPLEX PO) 12/02/2018 02/24/2019 letrozole (FEMARA) 2.5 mg Take one 90 tablet 3 tablet tablet by mouth daily. documented as of this encounter Plan of Treatment Not on filedocumented as of this encounter Goals Goal Patient Associated Recent Progress Patient-Stat Aut hor Goal Type Problems ed? [facility] No Erna Rincon RN documented as of this encounter Procedures Comments Procedure Name Priority Date/Time Associated Diag nosis CBC AND DIFF Routine 12/02/2018 Malignant neopl asm of 9:27 AM CDT upper-inner quadrant of left breast in female, estrogen receptor positive (HCC) COMPREHENSIVE METABOLIC Routine 12/02/2018 Malign ant neoplasm of PANEL 9:27 AM CDT upper-inner quadran t of left breast in female, estrogen receptor [...] >60 >60 mL/min [facility] Comment: [place] The eGFR is not validated f or use in drug dosing adjustments. Continue to use estimated creatinine clearance per dosing reference text. Please contact the Clinical Pharmacist for questions. eGFR >60 >60 mL/min [facility] [place] Comment: The eGFR is not validated for use in drug dosing adjustments. Continue to use estimated creatinine clearance per dosing reference text. Please contact the Clinical Pharmacist for questions. Specimen Blood Performing Organization Address City/State/Zipcode Ph one Number [facility] [address] [address] * CBC AND DIFF (12/02/2018 9:27 AM CDT) White Blood 4.8 4.5 - 11.0 K/UL [facility] [place] RBC 3.62 (L) 4.0 - 5.0 M/UL [facility] [place] Hemoglobin 11.1 (L) 12.0 - 15.0 GM/DL [facility] [place] Hematocrit 33.4 (L) 36 - 45 % [facility] [place] MCV 92.3 80 - 100 FL [facility] [place] MCH 30.8 26 - 34 PG [facility] [place] MCHC 33.3 32.0 - 36.0 G/DL [facility] [place] RDW 18.3 (H) 11 - 15 % [facility] [place] Platelet Count 245 150 - 400 K/UL [facility] [place] MPV 6.3 (L) 7 - 11 FL [facility] [place] Neutrophils 51 41 - 77 % [facility] [place] Lymphocytes 32 24 - 44 % [facility] [place] Monocytes 13 (H) 4 - 12 % [facility] [place] Eosinophils 3 0 - 5 % [facility] [place] Basophils 1 0 - 2 % [facility] [place] Absolute 2.40 1.8 - 7.0 K/UL [facility] Neutrophil [place] Count Absolute Lymph 1.50 1.0 - 4.8 K/UL [facility] [place] Absolute 0.60 0 - 0.80 K/UL [facility] Monocyte Count [place] Absolute 0.10 0 - 0.45 K/UL [facility] Eosinophil [place] Count Absolute 0.00 0 - 0.20 K/UL [facility] Basophil Count [place] Specimen Blood Performing Organization Address City/State/Zipcode Ph one Number [facility] [place] [address] [place] [address] documented in this encounter Visit Diagnoses Diagnosis Malignant neoplasm of upper-inner quadr ant of left breast in female, estrogen receptor positive (HCC) documented in this encounter
--- OUTSIDE RECORDS SUMMARY | 2019-05-15 23:40 | XMS REPORT | Encounter Summary ---
Author Author [facility] Organization [facility] Address Unknown Phone Unavailable Care Team Providers Care Warehouse Associate Name Role Phone Meghan Del Rosario MD PCP Reason for Visit * Reason Comments Care Coordination Encounter Details Care Team Description [place] [address] [place] [address] Care Coordination 12/24/2018 Telephone [facility] [address] [place] [address] Social History Date Tobacco [...] encounter Miscellaneous Notes * Telephone Encounter - Martine Fritz RN - 12/24/2018 4:44 PM CDT Caridad requested that I call her because she does not have access to e-mail all the time. I called her regarding the itching of hands and feet after Herceptin and side effects of Femara. She said she told Yolette she was having a hard time w ith nausea taking Femara, but the last 3 days she has taken with food and that s eems to help. She does still have significant fatigue. She would like a break off Femara if it will not harm her. I told her Dr. chirstie is fine with her takin g a break until he sees her on 01-13-19. If she feels much better not taking it, we may switch to another hormonal therapy. She agrees with doing this. She jonathan ns to start Medrol dose pack. She asked if it is ok to take a Benadryl day she has Herceptin and I told her that would be fine. She is complaining of numbness and tingling in feet/toes. I told her since we are not giving Taxol anymore, it should not get worse and might improve with time. I explained that we sometimes give Neurontin if neuropathy is very bothersome. She is fine waiting until she sees Dr. Christie to further discuss neuropathy because it is not that bad. documented in this encounter Plan of Treatment Not on filedocumented as of this encounter Goals Goal Patient Associated Recent Progress Patient-Stat Aut hor Goal Type Problems ed? [facility] No Erna Rincon RN documented as of this encounter Visit Diagnoses Not on filedocumented in this encounter
--- OUTSIDE RECORDS SUMMARY | 2019-05-15 23:41 | XMS REPORT | CCD ---
Author Author Caridad Del Rosario D.O. 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 Name Role Phone PP Unavailable CCM Unavailable Summary Purpose Interface Exchange Insurance Providers Payer name Policy type / Coverage type Covered constitution party ID Effective Begin Date Effective End Date [facility] Commercial Insurance [id number] Un known Family History Family History data not found Social History No Social History data Allergies, Adverse Reactions, Alerts Substance Reaction Codes Entered Date Inactivated Date Status * NO KNOWN ENVIRONMENTAL ALLERGIES Unknown 12/25/2009 N o Inactive Date Active * NO KNOWN DRUG ALLERGIES Unknown 12/25/2009 No Inactiv e Date Active * NO KNOWN FOOD ALLERGIES Unknown 12/25/2009 No Inactiv e Date Active Problems Condition Codes Effective Dates Condition Status Cellulitis of right breast ICD-9: 611.0 ICD-10: N61.0 05/02/2019 Active Abnormal uterine and vaginal bleeding, unspecified ICD -9: 626.9 ICD-10: N93.9 10/21/2018 Active Edema, unspecified ICD-9: 782.3 ICD-10: R60.9 10/19/2018 Active Adverse effect of unspecified drugs, med icaments and biological substances, initial encounter ICD-9: 995.27 ICD-10: T50.905A 10/19/2018 Active Gross hematuria ICD-9: 599.71 ICD-10: R31.0 10/19/2018 Active COUGH ICD-9: 786.2 ICD-10: R05 07/29/2018 Active URI, ACUTE ICD-9: 465.9 ICD-10: J06.9 07/26/2018 Active Acute pharyngitis, unspecified ICD-9: 462 ICD-10: J02.9 07/26/2018 Active Encounter for general adult medical examination withou t abnormal findings ICD-9: V70.0 ICD-10: Z00.00 12/19/2013 Active Encounter for gynecological examination (general) (routine) without abnormal findings ICD-9: V72.31 ICD-10: Z01.419 06/30/2017 Active Menopausal and female climacteric states ICD-9: 627.9 ICD-10: N95.1 07/06/2018 Active Other abnormal and inconclusive findings on diagnostic imaging of breast ICD-9: 793.80 ICD-10: R92.8 06/24/2018 Active Encounter for screening mammogram for malignant neopla sm of breast ICD-9: V76.12 ICD-10: Z12.31 12/30/2015 Active MENOPAUSAL DISORDER ICD-9: 627.9 12/19/2013 Active ROUTINE MEDICAL EXAM ICD-9: V70.0 12/19/2013 Active Menopause Unknown 12/25/2009 Active ROUTINE GYNE EXAM ICD-9: V72.31 12/25/2009 Active Medications Medication Codes Instructions Start Date Stop Date Status Fill Instructions clindamycin HCl 300 mg capsule RxNorm: 603870 1 Capsule (s) Oral three times a day 05/02/2019 05/09/2019 Active fluoxetine 20 mg tablet RxNorm: 645835 1 Tablet(s) Oral QD 03/29/20 19 09/24/2019 Active Zithromax Z-Khoi 250 mg tablet RxNorm: 793032 Tablet(s) Oral as directed 03/25/2019 03/25/2019 Inactive Zithromax Z-Khoi 250 mg tablet RxNorm: 034704 Tablet(s) Oral as directed 03/25/2019 03/24/2019 Inactive famotidine 20 mg tablet RxNorm: 199406 1 Tablet(s) PO BID 10/19/2018 02/15/2019 Inactive Tessalon Perles 100 mg capsule RxNorm: 473928 1 Capsule (s) PO TID as needed for cough 07/26/2018 10/18/2018 Inactive Zithromax 500 mg tablet RxNorm: 678858 1 Tablet(s) PO QD 07/26/2018 0 07/25/2018 Inactive Zithromax 500 mg tablet RxNorm: 695376 1 Tablet(s) PO QD 07/26/2018 0 07/30/2018 Inactive Xanax 0.25 mg tablet RxNorm: 241138 1/2-1 Tablet(s) PO BID 06/01/19 19 No Stop Date Active fluoxetine 20 mg tablet RxNorm: 683922 1 Tablet(s) PO Q D Due for annual appointment in 06/01/2018 02/25/2019 Inactive fluoxetine 20 mg tablet RxNorm: 597857 1 Tablet(s) PO Q D Due for annual in [facility] 06/01/2018 02/25/2019 Inactive fluoxetine 20 mg tablet RxNorm: 627854 1 Tablet(s) PO QD 08/05/2017 1 07/02/2017 Inactive fluoxetine 20 mg tablet RxNorm: 944058 1 Tablet(s) PO QD 08/04/2017 0 08/04/2017 Inactive Xanax 0.25 mg tablet RxNorm: 605847 1/2-1 Tablet(s) PO BID 07/02/19 18 05/31/2018 Inactive fluoxetine 10 mg capsule RxNorm: 254457 2 Capsule(s) PO QAM 018 07/05/2018 Inactive Generic For:PROZAC 10 MG PUL VULE 09/24/2015 10:15:02 AM N O T I C E Last quantity doesn't match original quantity fluoxetine 10 mg capsule RxNorm: 514382 2 Capsule(s) PO QAM Routine wellness due after 02-04-17 12/03/2016 03/02/2017 Inactive Generic For:PROZ AC 10 MG PULVULE 09/24/2015 10:15:02 AM N O T I C E Last quantity doesn't match original quantity Xanax 0.25 mg tablet RxNorm: 517945 1/2-1 Tablet(s) PO BID 02/05/20 16 07/01/2017 Inactive fluoxetine 10 mg capsule RxNorm: 362238 2 Capsule(s) PO QAM 016 07/25/2018 Inactive fluoxetine 10 mg capsule RxNorm: 141285 2 Capsule(s) PO QAM 016 12/03/2016 Inactive Generic For:PROZAC 10 MG PUL VULE 09/24/2015 10:15:02 AM N O T I C E Last quantity doesn't match original quantity fluoxetine 10 mg capsule RxNorm: 701250 2 Capsule(s) PO QAM TAKE 2 CAPSULES BY MOUTH EVERY MORNING 11/16/2015 02/03/2016 Inactive Generic For: PROZAC 10 MG PULVULE 09/24/2015 10:15:02 AM N O T I C E Last quantity doesn't match original quantity fluoxetine 10 mg capsule RxNorm: 294597 2 Capsule(s) PO QAM TAKE 2 CAPSULES BY MOUTH EVERY MORNING 09/24/2015 11/15/2015 Inactive Generic For: PROZAC 10 MG PULVULE 09/24/2015 10:15:02 AM N O T I C E Last quantity doesn't match original quantity fluoxetine 10 mg capsule RxNorm: 573994 2 Capsule(s) PO QAM 015 09/24/2015 Inactive fluoxetine 10 mg capsule RxNorm: 833933 2 Capsule(s) PO QAM 015 07/28/2018 Inactive fluoxetine 10 mg capsule RxNorm: 595693 2 Capsule(s) PO QAM 014 05/21/2014 Inactive Xanax 0.25 mg tablet RxNorm: 385505 1/2-1 Tablet(s) PO BID 04/21/20 13 No Stop Date Active fluoxetine 10 mg capsule RxNorm: 489119 2 Capsule(s) PO QAM 013 01/24/2013 Inactive fluoxetine 10 mg capsule RxNorm: 717130 1 Capsule(s) PO QAM 013 10/26/2012 Inactive Multivitamin & Mineral Formula Tab RxNorm: 1 Tablet(s) PO QD No St art Date Active Zyrtec 10 mg tablet RxNorm: 9462396 1 Tablet(s) PO BID No Start Date Active Prilosec OTC 20 mg tablet,delayed release RxNorm: 319100 1 Tabl et(s) PO QD No Start Date Active Tessalon Perles 100 mg capsule RxNorm: 237946 1 Capsule (s) PO TID as needed for cough No Start Date 07/25/2018 Inactive Biotin Oral RxNorm: Oral No Start Date 10/18/2018 Inactive Zithromax Z-Khoi oral RxNorm: 59743 oral No Start Date 03/24/2019 Inactive Echinacea ACZ oral RxNorm: oral No Start Date 07/28/2018 Inacti ve Vitamin D3 1000 units Capsule RxNorm: 1 Capsule(s) PO QD No St art Date 07/28/2018 Inactive Black Cohosh Oral RxNorm: Oral No Start Date 07/28/2018 Inactiv e Xanax 0.25 mg tablet RxNorm: 213615 1/2-1 Tablet(s) PO BID No Start Date 04/20/2013 Inactive Zyrtec 10 mg tablet RxNorm: 1131002 1 Tablet(s) PO QD as needed No Start Date 10/18/2018 Inactive Vitamin C 1,000 mg tablet RxNorm: 288455 1 Tablet(s) PO QD No Start Date 10/18/2018 Inactive fluoxetine 20 mg tablet RxNorm: 379293 1 Tablet(s) PO QD No Start D ate 08/03/2017 Inactive Medication Administered No Medication Administered data Immunizations Vaccine Codes Date Status Influenza CVX: 141 04/08/2019 Influenza CVX: 141 04/26/2018 Results Observation Observation Code Item Item Code Result Date S ervice Location CULTURE, URINE, ROUTINE 395 CULTURE, URINE, ROUTINE 10/20/2018 [facility] [address] [place] [address] GFR CALC [id number] GFR Non Afr Amr >60 mL/min 07/05/2018 Un known GFR CALC [id number] GFR Afr Amr >60 mL/min 07/05/2018 Unknow n FREE T4 98200 T4 Free 0.94 ng/dL 07/05/2018 Unknown [facility] 18842 Cholesterol 165 mg/dL 07/05/2018 Unkno wn [facility] 75093 Triglyceride 108 mg/dL 07/05/2018 Unkn own [facility] 30431 HDL CHOLESTEROL 50 mg/dL 07/05/2018 U nknown [facility] 81399 Chol/HDL Ratio 3.30 ratio 07/05/2018 U nknown [facility] 75456 NON-HDL Chol 115 mg/dL 07/05/2018 Unkn own [facility] 20994 LDL Cholesterol 93 mg/dL 07/05/2018 U nknown THYROID STIMULATING HORMONE 75369 TSH 0.937 uIU/mL 07/05/2018 Unknown COMPREHENSIVE METABOLIC 19814 AST 19 U/L 2018 Unknown COMPREHENSIVE METABOLIC 54779 ALT 21 U/L 2018 Unknown COMPREHENSIVE METABOLIC 34471 BUN 10 mg/dL 2018 Unknown COMPREHENSIVE METABOLIC 35523 ALBUMIN 4.3 g/dL 2018 Unknown COMPREHENSIVE METABOLIC 30886 CHLORIDE 106 mmol/L 07/05 Unknown COMPREHENSIVE METABOLIC 25131 Bili Total 0.3 mg/dL 07/05 Unknown COMPREHENSIVE METABOLIC 97980 ALK PHOS 59 U/L 2018 Unknown COMPREHENSIVE METABOLIC 56964 SODIUM 140 mmol/L 07/05 Unknown COMPREHENSIVE METABOLIC 87176 CREATININE 0.68 mg/dL 06/18 Unknown COMPREHENSIVE METABOLIC 54590 CALCIUM 9.2 mg/dL 2018 Unknown COMPREHENSIVE METABOLIC 60621 POTASSIUM 4.0 mmol/L 07/05 Unknown COMPREHENSIVE METABOLIC 28130 Total Protein 7.1 g/dL Unknown COMPREHENSIVE METABOLIC 14004 Glucose 84 mg/dL 2018 Unknown COMPREHENSIVE METABOLIC 33068 Bicarbonate 27 mmol/L 06/18 Unknown COMPREHENSIVE METABOLIC 69052 AGAP 7 mmol/L 2018 Unknown COMPLETE BLOOD COUNT [id number] WBC 6.0 10e9/L 07/05/19 19 Unknown COMPLETE BLOOD COUNT 9561706 RBC 4.36 10e12/L 2018 Unknown COMPLETE BLOOD COUNT [id number] HEMOGLOBIN 12.9 g/dL 07/05/19 19 Unknown COMPLETE BLOOD COUNT [id number] HEMATOCRIT 39.1 % 07/05/19 19 Unknown COMPLETE BLOOD COUNT [id number] MCV 89.7 fL 9 Unknown COMPLETE BLOOD COUNT [id number] MCH 29.6 pg 9 Unknown COMPLETE BLOOD COUNT 2700986 MCHC 33.0 g/dL 9 Unknown COMPLETE BLOOD COUNT 6989712 PLATELET COUNT 270 10e9/L Unknown COMPLETE BLOOD COUNT 1871431 Mean Plt Volume 9.0 fL Unknown COMPLETE BLOOD COUNT 3074407 Neut Auto 53.8 % 9 Unknown COMPLETE BLOOD COUNT 7452576 Lymph Auto 35.8 % 07/05/19 19 Unknown COMPLETE BLOOD COUNT 9084650 Bucks Auto 7.9 % 9 Unknown COMPLETE BLOOD COUNT 7678911 RDW 13.9 % 9 Unknown COMPLETE BLOOD COUNT 2118128 Eos Auto 2.0 % 9 Unknown COMPLETE BLOOD COUNT 0676528 Baso Auto 0.5 % 9 Unknown COMPLETE BLOOD COUNT 8107893 Neutrophil Abs 3.23 10e9/L Unknown COMPLETE BLOOD COUNT [id number] Lymphocyte Abs 2.15 10e9/L Unknown COMPLETE BLOOD COUNT 4163457 Monocyte Abs 0.47 10e9/L 06/18 Unknown COMPLETE BLOOD COUNT 1238346 Eosinophil Abs 0.12 10e9/L Unknown COMPLETE BLOOD COUNT [id number] RDW-SD 44.5 fL 9 Unknown COMPLETE BLOOD COUNT [id number] Basophil Abs 0.03 10e9/L 06/18 Unknown FREE T4 33098 T4 Free 1.21 ng/dL 06/30/2017 Unknown GFR CALC 8389701 GFR Non Afr Amr >60 mL/min 06/30/2017 Un known GFR CALC 3196229 GFR Afr Amr >60 mL/min 06/30/2017 Unknow n THYROID STIMULATING HORMONE 95728 TSH 0.873 uIU/mL 06/30/2017 Unknown [facility] 04276 Cholesterol 175 mg/dL 06/30/2017 Unkno wn [facility] 45291 Triglyceride 129 mg/dL 06/30/2017 Unkn own [facility] 58581 HDL CHOLESTEROL 51 06/30/2017 U nknown [facility] 33428 Chol/HDL Ratio 3.43 ratio 06/30/2017 U nknown [facility] 89168 NON-HDL Chol 124 mg/dL 06/30/2017 Unkn own [facility] 99038 LDL Cholesterol 98 mg/dL 06/30/2017 U nknown COMPLETE BLOOD COUNT 1403592 WBC 6.2 10e9/L 06/30/19 18 Unknown COMPLETE BLOOD COUNT 1770014 RBC 4.58 10e12/L 2017 Unknown COMPLETE BLOOD COUNT 1144577 HEMOGLOBIN 13.3 g/dL 06/30/19 18 Unknown COMPLETE BLOOD COUNT [id number] HEMATOCRIT 41.6 % 06/30/19 18 Unknown COMPLETE BLOOD COUNT 1107439 MCV 90.8 fL 8 Unknown COMPLETE BLOOD COUNT 9163044 MCH 29.0 pg 8 Unknown COMPLETE BLOOD COUNT 8402213 MCHC 32.0 g/dL 8 Unknown COMPLETE BLOOD COUNT 0353425 PLATELET COUNT 271 10e9/L Unknown COMPLETE BLOOD COUNT 0942956 Mean Plt Volume 8.9 fL Unknown COMPLETE BLOOD COUNT 3407832 Neut Auto 53.5 % 8 Unknown COMPLETE BLOOD COUNT 0446957 Lymph Auto 36.4 % 06/30/19 18 Unknown COMPLETE BLOOD COUNT 4092835 Bucks Auto 8.1 % 8 Unknown COMPLETE BLOOD COUNT 9042347 RDW 13.4 % 8 Unknown COMPLETE BLOOD COUNT 9517871 Eos Auto 1.5 % 8 Unknown COMPLETE BLOOD COUNT 7158579 Baso Auto 0.5 % 8 Unknown COMPLETE BLOOD COUNT 4252632 Neutrophil Abs 3.32 10e9/L Unknown COMPLETE BLOOD COUNT 9656147 Lymphocyte Abs 2.26 10e9/L Unknown COMPLETE BLOOD COUNT 3393067 Monocyte Abs 0.50 10e9/L 06/18 Unknown COMPLETE BLOOD COUNT 8158912 Eosinophil Abs 0.09 10e9/L Unknown COMPLETE BLOOD COUNT 9984100 RDW-SD 43.9 fL 8 Unknown COMPLETE BLOOD COUNT 9551455 Basophil Abs 0.03 10e9/L 06/18 Unknown COMPREHENSIVE METABOLIC 20835 AST 19 U/L 2017 Unknown COMPREHENSIVE METABOLIC 53134 ALT 22 U/L 2017 Unknown COMPREHENSIVE METABOLIC 80519 BUN 12 mg/dL 2017 Unknown COMPREHENSIVE METABOLIC 75808 ALBUMIN 4.9 g/dL 2017 Unknown COMPREHENSIVE METABOLIC 53085 CHLORIDE 106 mmol/L 06/30 Unknown COMPREHENSIVE METABOLIC 66799 Bili Total 0.4 mg/dL 06/30 Unknown COMPREHENSIVE METABOLIC 92034 ALK PHOS 66 U/L 2017 Unknown COMPREHENSIVE METABOLIC 32190 SODIUM 143 mmol/L 06/30 Unknown COMPREHENSIVE METABOLIC 97804 CREATININE 0.71 mg/dL 06/18 Unknown COMPREHENSIVE METABOLIC 10935 CALCIUM 9.9 mg/dL 2017 Unknown COMPREHENSIVE METABOLIC 30195 POTASSIUM 4.1 mmol/L 06/30 Unknown COMPREHENSIVE METABOLIC 50540 Total Protein 8.0 g/dL Unknown COMPREHENSIVE METABOLIC 28180 Glucose 87 mg/dL 2017 Unknown COMPREHENSIVE METABOLIC 57665 Bicarbonate 27 mmol/L 06/18 Unknown COMPREHENSIVE METABOLIC 49346 AGAP 10 mmol/L 2017 Unknown GFR CALC 4296757 GFR AA >60 ML/MIN 12/19/2013 Unknown GFR CALC 4988687 GFR NON-AA >60 ML/MIN 12/19/2013 Unknown LIP[facility] GROUP 15397 HDL TEST 52 MG/DL 12/19/2013 Unknown LIP[facility] GROUP 23705 TRIG 96 MG/DL 12/19/2013 Unknown [facility] 94453 TEST LDL 98 MG/DL 12/19/2013 Unknown LIP[facility] GROUP 57092 CHOL 169 MG/DL 12/19/2013 Unknown LIP[facility] GROUP 05314 RCHOL/HDL 3.25 RATIO 12/19/2013 Unknow n LIP[facility] GROUP 63717 NON-HDL CH 117 MG/DL 12/19/2013 Unknow n COMPLETE BLOOD COUNT 7910213 WBC 5.6 10e9/L 12/20/19 14 Unknown COMPLETE BLOOD COUNT 1926418 RBC 4.45 10e12/L 2013 Unknown COMPLETE BLOOD COUNT 7264887 HGB 13.0 g/dL 4 Unknown COMPLETE BLOOD COUNT 6820868 HCT DET 39.9 % 4 Unknown COMPLETE BLOOD COUNT 2597623 MCV 89.7 fL 4 Unknown COMPLETE BLOOD COUNT 9245080 MCH 29.2 pg 4 Unknown COMPLETE BLOOD COUNT 7904381 MCHC 32.6 g/dL 4 Unknown COMPLETE BLOOD COUNT 7338656 PLT 244 10e9/L 12/20/19 14 Unknown COMPLETE BLOOD COUNT 9689460 MPV 9.4 fL 4 Unknown COMPLETE BLOOD COUNT 7907137 PABLITO % 58.5 % 4 Unknown COMPLETE BLOOD COUNT 7493399 LY % 30.8 % 4 Unknown COMPLETE BLOOD COUNT 3898276 MON % 8.2 % 4 Unknown COMPLETE BLOOD COUNT 4025862 EOS % 2.0 % 4 Unknown COMPLETE BLOOD COUNT 6490802 BASO % 0.5 % 4 Unknown COMPLETE BLOOD COUNT 8220026 RDW 13.6 % 4 Unknown COMPLETE BLOOD COUNT 8876420 ABS PABLITO 3.28 10e9/L 014 Unknown COMPLETE BLOOD COUNT 3995983 ABS LYMPH 1.72 10e9/L 014 Unknown COMPLETE BLOOD COUNT 2514891 ABS MONO 0.46 10e9/L 014 Unknown COMPLETE BLOOD COUNT 6168347 ABS EOS 0.11 10e9/L 014 Unknown COMPLETE BLOOD COUNT 8368090 ABS BASO 0.03 10e9/L 014 Unknown COMPLETE BLOOD COUNT 8890551 RDW-SD 43.6 fL 4 Unknown FREE T4 38351 FREE T4 1.26 NG/DL 12/19/2013 Unknown COMPREHENSIVE METABOLIC 38273 AST 18 U/L 2013 Unknown COMPREHENSIVE METABOLIC 17786 ALT 22 IU/L 2013 Unknown COMPREHENSIVE METABOLIC 12674 BUN 11 MG/DL 2013 Unknown COMPREHENSIVE METABOLIC 17868 ALBUMIN 4.7 GM/DL 2013 Unknown COMPREHENSIVE METABOLIC 52384 CHLORIDE 108 MMOL/L 12/19 Unknown COMPREHENSIVE METABOLIC 44989 BILI TOT 0.3 MG/DL 2013 Unknown COMPREHENSIVE METABOLIC 30045 ALK PHOS 67 U/L 2013 Unknown COMPREHENSIVE METABOLIC 62196 SODIUM 141 MMOL/L 12/19 Unknown COMPREHENSIVE METABOLIC 68095 CREATININE 0.67 MG/DL 08/2013 Unknown COMPREHENSIVE METABOLIC 79097 CALCIUM 9.4 MG/DL 2013 Unknown COMPREHENSIVE METABOLIC 40538 POTASSIUM 4.1 MMOL/L 12/19 Unknown COMPREHENSIVE METABOLIC 43931 PROT TOT 7.0 GM/DL 2013 Unknown COMPREHENSIVE METABOLIC 75910 Glucose 94 MG/DL 2013 Unknown COMPREHENSIVE METABOLIC 99454 BICARB 27 MMOL/L 2013 Unknown COMPREHENSIVE METABOLIC 61487 ANION GAP 6 MEQ/L 2013 Unknown THYROID STIMULATING HORMONE 69156 TSH 0.547 uIU/ML 12/19/2013 Unknown GFR CALC 9349612 GFR AA >60 ML/MIN 02/03/2011 Unknown GFR CALC 9514877 GFR NON-AA >60 ML/MIN 02/03/2011 Unknown THYROID STIMULATING HORMONE 25993 TSH 0.818 uIU/ML 02/03/2011 Unknown COMPLETE BLOOD COUNT 48641 WBC 7.7 10e9/L 02/04/20 11 Unknown COMPLETE BLOOD COUNT 29341 RBC 4.23 10e12/L 2010 Unknown COMPLETE BLOOD COUNT 72596 HGB 11.9 g/dL 1 Unknown COMPLETE BLOOD COUNT 25140 HCT DET 36.5 % 1 Unknown COMPLETE BLOOD COUNT 12876 MCV 86.3 fL 1 Unknown COMPLETE BLOOD COUNT 57109 MCH 28.1 pg 1 Unknown COMPLETE BLOOD COUNT 34589 MCHC 32.6 g/dL 1 Unknown COMPLETE BLOOD COUNT 21785 PLT 244 10e9/L 02/04/20 11 Unknown COMPLETE BLOOD COUNT 00117 MPV 8.7 fL 1 Unknown COMPLETE BLOOD COUNT 35725 PABLITO % 58.9 % 1 Unknown COMPLETE BLOOD COUNT 10753 LY % 31.1 % 1 Unknown COMPLETE BLOOD COUNT 74596 MON % 7.9 % 1 Unknown COMPLETE BLOOD COUNT 27343 EOS % 1.8 % 1 Unknown COMPLETE BLOOD COUNT 46279 BASO % 0.3 % 1 Unknown COMPLETE BLOOD COUNT 28329 RDW 14.7 % 1 Unknown COMPLETE BLOOD COUNT 41584 ABS PABLITO 4.54 10e9/L 011 Unknown COMPLETE BLOOD COUNT 30363 ABS LYMPH 2.39 10e9/L 011 Unknown COMPLETE BLOOD COUNT 95959 ABS MONO 0.61 10e9/L 011 Unknown COMPLETE BLOOD COUNT 33729 ABS EOS 0.14 10e9/L 011 Unknown COMPLETE BLOOD COUNT 14906 ABS BASO 0.02 10e9/L 011 Unknown COMPLETE BLOOD COUNT 38469 RDW-SD 45.1 fL 1 Unknown COMPREHENSIVE METABOLIC 77168 AST 16 U/L 2010 Unknown COMPREHENSIVE METABOLIC 99592 ALT 21 IU/L 2010 Unknown COMPREHENSIVE METABOLIC 85829 BUN 9 MG/DL 2010 Unknown COMPREHENSIVE METABOLIC 58893 ALBUMIN 4.5 GM/DL 2010 Unknown COMPREHENSIVE METABOLIC 55191 CHLORIDE 104 MMOL/L 02/03 Unknown COMPREHENSIVE METABOLIC 84301 BILI TOT 0.2 MG/DL 2010 Unknown COMPREHENSIVE METABOLIC 82873 ALK PHOS 65 U/L 2010 Unknown COMPREHENSIVE METABOLIC 63302 SODIUM 137 MMOL/L 02/03 Unknown COMPREHENSIVE METABOLIC 97185 CREATININE 0.64 MG/DL 01/16 Unknown COMPREHENSIVE METABOLIC 93787 CALCIUM 8.8 MG/DL 2010 Unknown COMPREHENSIVE METABOLIC 36917 POTASSIUM 3.8 MMOL/L 02/03 Unknown COMPREHENSIVE METABOLIC 84177 PROT TOT 6.7 GM/DL 2010 Unknown COMPREHENSIVE METABOLIC 38263 Glucose 88 MG/DL 2010 Unknown COMPREHENSIVE METABOLIC 69217 BICARB 26 MMOL/L 2010 Unknown COMPREHENSIVE METABOLIC 52063 ANION GAP 7 MEQ/L 2010 Unknown FREE T4 70848 FREE T4 1.24 NG/DL 02/03/2011 Unknown Procedures Procedure Codes Date CEFTRIAXONE SODIUM INJECTION CPT-4: J0696 05/04/2019 THER/PROPH/DIAG INJ SC/IM CPT-4: 28060 05/04/2019 CEFTRIAXONE SODIUM INJECTION CPT-4: J0696 05/03/2019 THER/PROPH/DIAG INJ SC/IM CPT-4: 47426 05/03/2019 CEFTRIAXONE SODIUM INJECTION CPT-4: J0696 05/02/2019 THER/PROPH/DIAG INJ SC/IM CPT-4: 31736 05/02/2019 DEXAMETHASONE SODIUM PHOS CPT-4: J1100 10/19/2018 THER/PROPH/DIAG INJ SC/IM CPT-4: 57935 10/19/2018 URINE CULTURE/ COLONY COUNT CPT-4: 20030 10/19/2018 URINALYSIS NONAUTO W/O SCOPE CPT-4: 49709 10/19/2018 THROAT CULTURE CPT-4: 46210 07/29/2018 STREP A ASSAY W/OPTIC CPT-4: 57046 07/26/2018 SPECIMEN HANDLING OFFICE-LAB CPT-4: 07173 07/06/2018 OCCULT BLOOD FECES CPT-4: 81981 07/06/2018 ROUTINE VENIPUNCTURE CPT-4: 36628 12/19/2013 ASSAY OF FREE THYROXINE CPT-4: 65209 12/19/2013 ASSAY THYROID STIM HORMONE CPT-4: 21808 12/19/2013 COMPREHEN METABOLIC PANEL CPT-4: 70192 12/19/2013 COMPLETE CBC W/AUTO DIFF WBC CPT-4: 35539 12/19/2013 LIPID PANEL CPT-4: 03708 12/19/2013 OCCULT BLOOD FECES CPT-4: 79271 02/03/2011 SPECIMEN HANDLING OFFICE-LAB CPT-4: 21732 12/25/2009 OCCULT BLOOD FECES CPT-4: 26217 12/25/2009 Vital Signs Date Vital 05/05/2019 Blood Pressure 1: 144/84 Code: 8480-6 Te mperature: 36.8 (C) / 98.2 (F) 05/04/2019 Blood Pressure 1: 128/68 Code: 8480-6 Heart Rate 1: 84 bpm Temperature: 36.9 (C) / 98.4 (F) 05/03/2019 Blood Pressure 1: 122/80 Code: 8480-6 Heart Rate 1: 108 bpm SpO2: 99% Temperature: 36.8 (C) / 98.2 (F) 05/02/2019 Blood Pressure 1: 132/80 Code: 8480-6 Heart Rate 1: 92 bpm Respiratory Rate: 20 bpm SpO2: 98% Temperature: 36.9 (C) / 98.4 (F) We ight: 207 lbs 10/20/2018 Weight: 213 lbs 10/19/2018 Blood Pressure 1: 126/70 Code: 8480-6 Heart Rate 1: 92 bpm Respiratory Rate: 20 bpm SpO2: 98% Temperature: 36.8 (C) / 98.2 (F) We ight: 218 lbs 07/29/2018 Blood Pressure 1: 128/74 Code: 8480-6 Heart Rate 1: 108 bpm Respiratory Rate: 18 bpm SpO2: 96% Temperature: 37.2 (C) / 99.0 (F) 07/26/2018 Blood Pressure 1: 126/82 Code: 8480-6 Heart Rate 1: 102 bpm Respiratory Rate: 18 bpm SpO2: 98% Temperature: 37.2 (C) / 98.9 (F) 07/06/2018 Blood Pressure 1: 130/78 Code: 8480-6 BMI: 30.7 Code: 06962-3 Heart Rate 1: 76 bpm Height: 5'9" Respiratory Rate: 20 bpm Temperature: 36 .8 (C) / 98.3 (F) Weight: 208 lbs 06/30/2017 Blood Pressure 1: 126/80 Code: 8480-6 BMI: 30.9 Code: 98816-6 Heart Rate 1: 72 bpm Height: 5'9" Respiratory Rate: 20 bpm Temperature: 36 .7 (C) / 98.0 (F) Weight: 209 lbs 02/04/2016 Blood Pressure 1: 122/80 Code: 8480-6 BMI: 31.3 Code: 81475-3 Heart Rate 1: 80 bpm Height: 5'9" Respiratory Rate: 20 bpm Temperature: 36 .6 (C) / 97.8 (F) Weight: 212 lbs 12/19/2013 Blood Pressure 1: 116/78 Code: 8480-6 BMI: 30.1 Code: 40483-6 Heart Rate 1: 76 bpm Height: 5'9" Respiratory Rate: 20 bpm Temperature: 36 .8 (C) / 98.3 (F) Weight: 204 lbs 10/27/2012 Blood Pressure 1: 114/70 Code: 8480-6 BMI: 30.3 Code: 32994-9 Heart Rate 1: 68 bpm Height: 5'9" Respiratory Rate: 20 bpm Temperature: 36 .8 (C) / 98.3 (F) Weight: 205 lbs 09/01/2012 Blood Pressure 1: 118/82 Code: 8480-6 BMI: 30.9 Code: 55259-0 Heart Rate 1: 80 bpm Height: 5'9" Respiratory Rate: 20 bpm Temperature: 36 .8 (C) / 98.2 (F) Weight: 209 lbs 02/03/2011 Blood Pressure 1: 118/76 Code: 8480-6 BMI: 29.5 Code: 08397-8 Heart Rate 1: 72 bpm Height: 5'9" Weight: 200 lbs 12/25/2009 Blood Pressure 1: 122/76 Code: 8480-6 BMI: 29.5 Code: 91830-7 Heart Rate 1: 80 bpm Height: 5'9" Temperature: 36.8 (C) / 98.3 (F) Weight: 200 lbs Functional Status No Functional Status data Reason For Visit Reason For Visit Effective Dates Notes follow up 05/05/2019 follow up 05/04/2019 follow up 05/03/2019 cellulitis 05/02/2019 weight check 10/20/2018 edema 10/19/2018 cough 07/29/2018 hoarseness 07/26/2018 well woman exam (40-65 years) 07/06/2018 Mammogram with left breast biospy on 07-02-18, never had bone density well woman exam (40-65 years) 06/30/2017 Last saurav l mammogram 01-30-16, patient has screening bone density well woman exam (40-65 years) 02/04/2016 Last saurav l mammogram 01-30-16, never had bone density well woman exam (40-65 years) 12/19/2013 Last saurav l mammogram August 2012, discuss colonoscopy---last normal was almost 5 years ago follow up 10/27/2012 2mo fwup Annual Checkup 09/01/2012 Discuss labs well woman exam (40-65 years) 02/03/2011 last one d one in December 2009, Last Mammo was done at the same time well woman exam (40-65 years) 12/25/2009 normal bella mo 11/24 Encounters Encounter Performer Location Codes Date ([id number]) NO CHARGE Diagnosis: Cellulitis of right breast[ICD10: N61.0] Josesito DEL ROSARIO DO [employer] Review Source CPT-4: 02545 05/05/2019 ([id number]) OFFICE/OUTPATIENT VISIT EST Diagnosis: Cellulitis of right breast[ICD10: N61.0] Josesito DEL ROSARIO DO [facility] CPT-4: 17099 05/04/2019 ([id number]) OFFICE/OUTPATIENT VISIT EST Diagnosis: Cellulitis of right breast[ICD10: N61.0] Josesito DEL ROSARIO DO Android App Review Source CPT-4: 14848 05/03/2019 ([id number]) OFFICE/OUTPATIENT VISIT EST Diagnosis: Cellulitis of right breast[ICD10: N61.0] Josesito DEL ROSARIO DO Android App Review Source CPT-4: 41733 05/02/2019 ([id number]) OFFICE/OUTPATIENT VISIT EST Diagnosis: Edema, unspecified[ICD10: R60.9] Diagnosis: Adverse effect of unspecified drugs, medicaments and biological substances, initial encounter[ICD10: T50.905A] Diagnosis: Gross hematuria[ICD10: R31.0] Josesito DEL ROSARIO DO Android App Review Source CPT-4: 48213 10/19/2018 ([id number]) OFFICE/OUTPATIENT VISIT EST Diagnosis: URI, ACUTE[ICD10: J06.9] Josesito SHIELDS Android App Review Source CPT-4: 77783 07/29/2018 ([id number]) OFFICE/OUTPATIENT VISIT EST Diagnosis: Acute pharyngitis, unspecified[ICD10: J02.9] Diagnosis: URI, ACUTE[ICD10: J06.9] Josesito SHIELDS Android App Review Source CPT-4: 51524 07/26/2018 ([id number]) PREV VISIT EST AGE 40-64 Diagnosis: Encounter for general adult medical examination without abnormal findings[ICD10: Z00.00] Diagnosis: Encounter for gynecological examination (general) (routine) without abnormal findings[ICD10: Z01.419] Diagnosis: Menopausal and female climacteric states[ICD10: N95.1] Diagnosis: Other abnormal and inconclusive findings on diagnostic imaging of breast[ICD10: R92.8] Josesito DEL ROSARIO DO Android App Review Source CPT-4: 83388 07/06/2018 ([id number]) PREV VISIT EST AGE 40-64 Diagnosis: Encounter for general adult medical examination without abnormal findings[ICD10: Z00.00] Diagnosis: Encounter for gynecological examination (general) (routine) without abnormal findings[ICD10: Z01.419] Josesito Lund [employer] CPT-4: 35279 06/30/2017 ([id number]) PREV VISIT EST AGE 40-64 Diagnosis: Encounter for general adult medical examination without abnormal findings[ICD10: Z00.00] Josesito DEL ROSARIO [employer] CPT-4: 40359 02/04/2016 ([id number]) PREV VISIT EST AGE 40-64 Diagnosis: ROUTINE MEDICAL EXAM[ICD9: V70.0] Diagnosis: MENOPAUSAL DISORDER[ICD9: 627.9] Josesito DEL ROSARIO DO [employer] CPT-4: 61809 12/19/2013 OFFICE/OUTPATIENT VISIT EST Diagnosis: MENOPAUSAL DISORDER[ICD9: 627.9] Josesito DEL ROSARIO [employer] CPT-4: 18388 10/27/2012 ([id number]) PREV VISIT EST AGE 40-64 Diagnosis: ROUTINE MEDICAL EXAM[ICD9: V70.0] Diagnosis: MENOPAUSAL DISORDER[ICD9: 627.9] Josesito DEL ROSARIO DO [employer] CPT-4: 48195 09/01/2012 PREV VISIT EST AGE 40-64 Diagnosis: ROUTINE GYNE EXAM[ICD9: V72.31] Diagnosis: ROUTINE MEDICAL EXAM[ICD9: V70.0] Josesito DEL ROSARIO [employer] CPT-4: 17148 02/03/2011 SPECIMEN HANDLING Diagnosis: [ICD9: ] Diagnosis: [ICD9: ] Josesito DEL ROSARIO DO [employer] CPT-4: 9900 0 02/03/2011 ([id number]) PREV VISIT, EST, AGE 40-64 Josesito Angelitoruss DEL ROSARIO DO [employer] CPT-4: 87648 12/25/2009 Plan of Care Planned Activity Notes Codes Status Date Visit Diagnosis Plan: Cellulitis of right breast Discu ssion: Having surgery tomorrow at ICD-9 : 611.0 ICD-10 : N61.0 05/05/2019 Visit Diagnosis Plan: Cellulitis of right breast Discu ssion: Repeat rocephin 1gm IM Continue clindamycin Recheck tomorrow ICD-9 : 611.0 ICD-10 : N61.0 05/04/2019 Appointment: Josesito Del Rosario WPtel: [address] [place] [address] US FOLLOW UP 05/04/2019 Visit Diagnosis Plan: Cellulitis of right breast Discu ssion: Repeat Rocephin 1gm IM today Continue clindamycin Recheck tomorrow ICD-9 : 611.0 ICD-10 : N61.0 05/03/2019 Appointment: Josesito Del Rosario WPtel: [address] [place] [address] US FOLLOW UP 05/03/2019 Visit Diagnosis Plan: Cellulitis of right breast Discu ssion: Rocephin 1gm IM now Start clindamycin with a probiotic Recheck tomorrow ICD-9 : 611.0 ICD-10 : N61.0 05/02/2019 Appointment: Josesito Del Rosario WPtel: [address] [place] [address] ACUTE ILLNESS 05/02/2019 Patient Education: clindamycin HCl- [employer] C[employer]on [id number] [email or web address] Completed 05/02/2019 Care Plan: TRANSVAGINAL US NON-OB LOINC : 66955-0 Pending 10/21/2018 Appointment: Josesito Del Rosario WPtel: [address] [place], [place] [phone] WT CHECK 10/20/2018 Visit Diagnosis Plan: Edema, unspecified Discussion: N o pitting edema or signs of DVT Patient states feels like allergic reaction and did recently start prilosec as well as had herceptin infusion 5 days ago and did receive a lower dose of steroids Will culture urine ICD-9 : 782.3 ICD-10 : R60.9 10/19/2018 Visit Diagnosis Plan: Adverse effect of unspecified drugs, medicaments and biological substances, initial encounter Discussion: DC prilosec Famotodine 20mg po BID Continue zyrtec BID Dexamethasone 4mg IM x1 Call tomorrow on how doing ICD-9 : 995.27 ICD-10 : T50.905A 10/19/2018 Appointment: Jsoesito Del Rosario WPtel: [address] [place], [place] [phone] 10/19/2018 Appointment: Josesito Del Rosario WPtel: [address] [place], [place] [phone] US Per DR CASEYCELED 08/02/2018 Visit Diagnosis Plan: URI, ACUTE Discussion: CXR negat johnna Lungs clear Only physical exam finding is injection on throat and mild fluid behind ears Will increase zyrtec to BID Throat Culture Notify surgeon of current course ICD-9 : 465.9 ICD-10 : J06.9 07/29/2018 Appointment: Josesito Del Rosario WPtel: [address] [place], [place] [phone] WORK IN 07/29/2018 Visit NOS Plan: Plan Notes: Supportive care. Rest, Fluids... 07/26/2018 Visit Diagnosis Plan: Acute pharyngitis, unspecified D iscussion: Strep Negative Cover with Zithromax with upcoming surgery next week but if worsens will let us know and will have to postpone surgery ICD-9 : 462 ICD-10 : J02.9 07/26/2018 Appointment: Josesito Del Rosario [facility]el[id number] [facility] 07/26/2018 Visit Diagnosis Plan: Menopausal and female climacteri c states Discussion: Stable on fluoxetine ICD-9 : 627.9 ICD-10 : N95.1 07/06/2018 Visit Diagnosis Plan: Encounter for gyne cological examination (general) (routine) without abnormal findings Discussion: Pap done ICD-9 : V72.31 ICD-10 : Z01.419 07/06/2018 Visit Diagnosis Plan: Encounter for gene ral adult medical examination without abnormal findings Discussion: Lab discussed Mediterranean diet Combo of cardio/weight bearing exercise ICD-9 : V70.0 ICD-10 : Z00.00 07/06/2018 Visit Diagnosis Plan: Other abnormal and inconclusive findings on diagnostic imaging of breast Discussion: Had left breast biopsy Isabelle nakiaJul 02 ICD-9 : 793.80 ICD-10 : R92.8 07/06/2018 Appointment: Josesito Del Rosario WPtel: [address] [place] [id number] [place] PAP 07/06/2018 Care Plan: MAMMOGRAM BOTH BREASTS Diagnostic Mammogram of Le ft Breast LOINC : 99267-0 Pending 06/24/2018 Care Plan: US EXAM CHEST Left Breast, if needed LOINC : 2463 0-6 Pending 06/24/2018 Patient Education: Patient Medication Summary Completed 12/16/2017 Care Plan: MAMMOGRAM SCREENING LOINC : 2 6347-5 Pending 12/16/2017 Visit Diagnosis Plan: Encounter for gyne cological examination (general) (routine) without abnormal findings Discussion: Pap done Mammogram ordered Discussed pelvic floor PT for bowel incontinence ICD-9 : V72.31 ICD-10 : Z01.419 06/30/2017 Visit Diagnosis Plan: Encounter for gene ral adult medical examination without abnormal findings Discussion: Check fasting lab ICD-9 : V70.0 ICD-10 : Z00.00 06/30/2017 Appointment: Josesito Del Rosario [facility]Ptel[id number] [facility] 06/30/2017 Patient Education: Patient Medication Summary Completed 06/30/2017 Visit Plan: Update fasting lab Pap done Had mammogram Weight bearing exercise 02/04/2016 Appointment: Josesito Del Rosario WPtel: [address] [place] [address] 01/30 confirmed~sl PAP 02/04/2016 Patient Education: Patient Medication Summary Completed 02/04/2016 Appointment: Josesito Del Rosario WPtel: [address] [place] [address] RESCHEDULED 01/17/2016 Patient Education: Patient Medication Summary Completed 12/31/2015 Care Plan: MAMMOGRAM SCREENING LOINC : 2 6347-5 Pending 12/31/2015 Visit Plan: Try to decrease fluoxetine t o 10mg daily Check Mammo Check fasting lab Check Colonoscopy due to family hx of Colon Cancer 12/19/2013 Appointment: Josesito Del Rosario WPtel: [address] [place] [address] 12/16 vm PAP 12/19/2013 Patient Education: Patient Medication Summary Completed 12/19/2013 Visit Plan: Long discussion about HRT--p t has Breast Ca on both sides--Discussed BRCA gene testing in Mom Will try higher dose of fluoxetine 10/27/2012 Appointment: Josesito Del Rosario WPtel: [address] [place] [address] FOLLOW UP 10/27/2012 Patient Education: Patient Medication Summary Completed 10/27/2012 Visit Plan: Lab discussed Add fish oil 3 grams daily Long discussion about hormones Trial of fluoxetine 09/01/2012 Appointment: Josesito Del Rosario WPtel: [address] [place] [address] PAP 09/01/2012 Patient Education: Patient Medication Summary Completed 09/01/2012 Visit Plan: Pap Done and Mammogram order ed Fasting lab ordered 02/03/2011 Appointment: Josesito Del Rosario WPtel: [address] [place] [address] PAP 02/03/2011 Patient Education: Patient Medication Summary Completed 02/03/2011 Visit Plan: Pap done Mammo done last wee k Lab discussed Discussed Bioidentical Hormones 12/25/2009 Appointment: Josesito Del Rosario WPtel: [id number] PAP 12/25/2009 Patient Education: Patient Medication Summary Completed 12/25/2009 Instructions Comment . Update fasting lab Pap done Had mammogram Weight bearing exercise . Try to decrease fluoxetine to 10mg kobe ly Check Mammo Check fasting lab Check Colonoscopy due to family hx of Colon Cancer . Long discussion about HRT--pt has [place] [facility] Ca on both sides--Discussed BRCA gene testing in Mom Will try higher dose of fluoxetine . Lab discussed Add fish oil 3grams daily Long discussion about hormones Trial of fluoxetine . Pap Done and Mammogram ordered Fasting lab ordered . Pap done Mammo done last week Lab discussed Discussed Bioidentical Hormones Medical Equipment No Medical Equipment data Health Concerns Section Health Concerns data not found Goals Section Goals data not found Interventions Section Interventions data not found Health Status Evaluations/Outcomes Section Health Status Evaluations/Outcomes data not found Advance Directives No Advance Directive data
--- OUTSIDE RECORDS SUMMARY | 2019-05-15 23:41 | XMS REPORT | CCD ---
Author Author Caridad Del Rosario D.O. Organization [facility] Address [address] [place] [address] Phone Care Team Providers Care Personal Service Workers Name Role Phone PP Unavailable CCM Unavailable Summary Purpose Interface Exchange Insurance Providers Payer name Policy type / Coverage type Covered constitution party ID Effective Begin Date Effective End Date [facility] Commercial Insurance [id number] Un known Family History Family History data [...] Instructions clindamycin HCl 300 mg capsule RxNorm: 743698 1 Capsule (s) Oral three times a day 05/02/2019 05/09/2019 Active fluoxetine 20 mg tablet RxNorm: 041770 1 Tablet(s) Oral QD 03/29/20 19 09/24/2019 Active Zithromax Z-Khoi 250 mg tablet RxNorm: 147259 Tablet(s) Oral as directed 03/25/2019 03/25/2019 Inactive Zithromax Z-Khoi 250 mg tablet RxNorm: 554969 Tablet(s) Oral as directed 03/25/2019 03/24/2019 Inactive famotidine 20 mg tablet RxNorm: 617296 1 Tablet(s) PO BID 10/19/2018 02/15/2019 Inactive Tessalon Perles 100 mg capsule RxNorm: 582400 1 Capsule (s) PO TID as needed for cough 07/26/2018 10/18/2018 Inactive Zithromax 500 mg tablet RxNorm: 580101 1 Tablet(s) PO QD 07/26/2018 0 07/25/2018 Inactive Zithromax 500 mg tablet RxNorm: 359086 1 Tablet(s) PO QD 07/26/2018 0 07/30/2018 Inactive Xanax 0.25 mg tablet RxNorm: 970079 1/2-1 Tablet(s) PO BID 06/01/19 19 No Stop Date Active fluoxetine 20 mg tablet RxNorm: 447717 1 Tablet(s) PO Q D Due for annual appointment in 06/01/2018 02/25/2019 Inactive fluoxetine 20 mg tablet RxNorm: 780637 1 Tablet(s) PO Q D Due for annual in [facility] 06/01/2018 02/25/2019 Inactive fluoxetine 20 mg tablet RxNorm: 220399 1 Tablet(s) PO QD 08/05/2017 1 07/02/2017 Inactive fluoxetine 20 mg tablet RxNorm: 187172 1 Tablet(s) PO QD 08/04/2017 0 08/04/2017 Inactive Xanax 0.25 mg tablet RxNorm: 715614 1/2-1 Tablet(s) PO BID 07/02/19 18 05/31/2018 Inactive fluoxetine 10 mg capsule RxNorm: 106498 2 Capsule(s) PO QAM 018 07/05/2018 Inactive Generic For:PROZAC 10 MG PUL VULE 09/24/2015 10:15:02 AM N O T I C E Last quantity doesn't match original quantity fluoxetine 10 mg capsule RxNorm: 448946 2 Capsule(s) PO QAM Routine wellness due after 02-04-17 12/03/2016 03/02/2017 Inactive Generic For:PROZ AC 10 MG PULVULE 09/24/2015 10:15:02 AM N O T I C E Last quantity doesn't match original quantity Xanax 0.25 mg tablet RxNorm: 191694 1/2-1 Tablet(s) PO BID 02/05/20 16 07/01/2017 Inactive fluoxetine 10 mg capsule RxNorm: 200630 2 Capsule(s) PO QAM 016 07/25/2018 Inactive fluoxetine 10 mg capsule RxNorm: 488370 2 Capsule(s) PO QAM 016 12/03/2016 Inactive Generic For:PROZAC 10 MG PUL VULE 09/24/2015 10:15:02 AM N O T I C E Last quantity doesn't match original quantity fluoxetine 10 mg capsule RxNorm: 072664 2 Capsule(s) PO QAM TAKE 2 CAPSULES BY MOUTH EVERY MORNING 11/16/2015 02/03/2016 Inactive Generic For: PROZAC 10 MG PULVULE 09/24/2015 10:15:02 AM N O T I C E Last quantity doesn't match original quantity fluoxetine 10 mg capsule RxNorm: 392930 2 Capsule(s) PO QAM TAKE 2 CAPSULES BY MOUTH EVERY MORNING 09/24/2015 11/15/2015 Inactive Generic For: PROZAC 10 MG PULVULE 09/24/2015 10:15:02 AM N O T I C E Last quantity doesn't match original quantity fluoxetine 10 mg capsule RxNorm: 448721 2 Capsule(s) PO QAM 015 09/24/2015 Inactive fluoxetine 10 mg capsule RxNorm: 195278 2 Capsule(s) PO QAM 015 07/28/2018 Inactive fluoxetine 10 mg capsule RxNorm: 609955 2 Capsule(s) PO QAM 014 05/21/2014 Inactive Xanax 0.25 mg tablet RxNorm: 498286 1/2-1 Tablet(s) PO BID 04/21/20 13 No Stop Date Active fluoxetine 10 mg capsule RxNorm: 514677 2 Capsule(s) PO QAM 013 01/24/2013 Inactive fluoxetine 10 mg capsule RxNorm: 855953 1 Capsule(s) PO QAM 013 10/26/2012 Inactive Multivitamin & Mineral Formula Tab RxNorm: 1 Tablet(s) PO QD No St art Date Active Zyrtec 10 mg tablet RxNorm: 8253267 1 Tablet(s) PO BID No Start Date Active Prilosec OTC 20 mg tablet,delayed release RxNorm: 406023 1 Tabl et(s) PO QD No Start Date Active Tessalon Perles 100 mg capsule RxNorm: 646832 1 Capsule (s) PO TID as needed for cough No Start Date 07/25/2018 Inactive Biotin Oral RxNorm: Oral No Start Date 10/18/2018 Inactive Zithromax Z-Khoi oral RxNorm: 36945 oral No Start Date 03/24/2019 Inactive Echinacea ACZ oral RxNorm: oral No Start Date 07/28/2018 Inacti ve Vitamin D3 1000 units Capsule RxNorm: 1 Capsule(s) PO QD No St art Date 07/28/2018 Inactive Black Cohosh Oral RxNorm: Oral No Start Date 07/28/2018 Inactiv e Xanax 0.25 mg tablet RxNorm: 217460 1/2-1 Tablet(s) PO BID No Start Date 04/20/2013 Inactive Zyrtec 10 mg tablet RxNorm: 9167173 1 Tablet(s) PO QD as needed No Start Date 10/18/2018 Inactive Vitamin C 1,000 mg tablet RxNorm: 126086 1 Tablet(s) PO QD No Start Date 10/18/2018 Inactive fluoxetine 20 mg tablet RxNorm: 450887 1 Tablet(s) PO QD No Start D ate 08/03/2017 Inactive Medication Administered No Medication Administered data Immunizations Vaccine Codes Date Status Influenza CVX: 141 04/08/2019 Influenza CVX: 141 04/26/2018 Results Observation Observation Code Item Item Code Result Date S ervice Location CULTURE, URINE, ROUTINE 395 CULTURE, URINE, ROUTINE 10/20/2018 [facility] [address] [place] [address] GFR CALC 7107838 GFR Non Afr Amr >60 mL/min 07/05/2018 Un known GFR CALC 6408872 GFR Afr Amr >60 mL/min 07/05/2018 Unknow n FREE T4 73816 T4 Free 0.94 ng/dL 07/05/2018 Unknown [facility] 82001 Cholesterol 165 mg/dL 07/05/2018 Unkno wn [facility] 82579 Triglyceride 108 mg/dL 07/05/2018 Unkn own [facility] 33117 HDL CHOLESTEROL 50 mg/dL 07/05/2018 U nknown [facility] 52808 Chol/HDL Ratio 3.30 ratio 07/05/2018 U nknown [facility] 04831 NON-HDL Chol 115 mg/dL 07/05/2018 Unkn own [facility] 91940 LDL Cholesterol 93 mg/dL 07/05/2018 U nknown THYROID STIMULATING HORMONE 98041 TSH 0.937 uIU/mL 07/05/2018 Unknown COMPREHENSIVE METABOLIC 85398 AST 19 U/L 2018 Unknown COMPREHENSIVE METABOLIC 86206 ALT 21 U/L 2018 Unknown COMPREHENSIVE METABOLIC 70546 BUN 10 mg/dL 2018 Unknown COMPREHENSIVE METABOLIC 49850 ALBUMIN 4.3 g/dL 2018 Unknown COMPREHENSIVE METABOLIC 01019 CHLORIDE 106 mmol/L 07/05 Unknown COMPREHENSIVE METABOLIC 81268 Bili Total 0.3 mg/dL 07/05 Unknown COMPREHENSIVE METABOLIC 19912 ALK PHOS 59 U/L 2018 Unknown COMPREHENSIVE METABOLIC 40667 SODIUM 140 mmol/L 07/05 Unknown COMPREHENSIVE METABOLIC 06818 CREATININE 0.68 mg/dL 06/18 Unknown COMPREHENSIVE METABOLIC 99567 CALCIUM 9.2 mg/dL 2018 Unknown COMPREHENSIVE METABOLIC 86826 POTASSIUM 4.0 mmol/L 07/05 Unknown COMPREHENSIVE METABOLIC 97345 Total Protein 7.1 g/dL Unknown COMPREHENSIVE METABOLIC 17993 Glucose 84 mg/dL 2018 Unknown COMPREHENSIVE METABOLIC 65291 Bicarbonate 27 mmol/L 06/18 Unknown COMPREHENSIVE METABOLIC 46465 AGAP 7 mmol/L 2018 Unknown COMPLETE BLOOD COUNT 9655808 WBC 6.0 10e9/L 07/05/19 19 Unknown COMPLETE BLOOD COUNT 8557862 RBC 4.36 10e12/L 2018 Unknown COMPLETE BLOOD COUNT 7997186 HEMOGLOBIN 12.9 g/dL 07/05/19 19 Unknown COMPLETE BLOOD COUNT 2872740 HEMATOCRIT 39.1 % 07/05/19 19 Unknown COMPLETE BLOOD COUNT 7722341 MCV 89.7 fL 9 Unknown COMPLETE BLOOD COUNT 1832691 MCH 29.6 pg 9 Unknown COMPLETE BLOOD COUNT 5879160 MCHC 33.0 g/dL 9 Unknown COMPLETE BLOOD COUNT 1191867 PLATELET COUNT 270 10e9/L Unknown COMPLETE BLOOD COUNT 9287137 Mean Plt Volume 9.0 fL Unknown COMPLETE BLOOD COUNT 8778981 Neut Auto 53.8 % 9 Unknown COMPLETE BLOOD COUNT 5546967 Lymph Auto 35.8 % 07/05/19 19 Unknown COMPLETE BLOOD COUNT 0779334 [place] Auto 7.9 % 9 Unknown COMPLETE BLOOD COUNT 8285886 RDW 13.9 % 9 Unknown COMPLETE BLOOD COUNT 3204067 Eos Auto 2.0 % 9 Unknown COMPLETE BLOOD COUNT 5727954 Baso Auto 0.5 % 9 Unknown COMPLETE BLOOD COUNT 3337430 Neutrophil Abs 3.23 10e9/L Unknown COMPLETE BLOOD COUNT 9213299 Lymphocyte Abs 2.15 10e9/L Unknown COMPLETE BLOOD COUNT 1293282 Monocyte Abs 0.47 10e9/L 06/18 Unknown COMPLETE BLOOD COUNT 0044979 Eosinophil Abs 0.12 10e9/L Unknown COMPLETE BLOOD COUNT 2832261 RDW-SD 44.5 fL 9 Unknown COMPLETE BLOOD COUNT 4395482 Basophil Abs 0.03 10e9/L 06/18 Unknown FREE T4 35375 T4 Free 1.21 ng/dL 06/30/2017 Unknown GFR CALC 7276875 GFR Non Afr Amr >60 mL/min 06/30/2017 Un known GFR CALC 0839072 GFR Afr Amr >60 mL/min 06/30/2017 Unknow n THYROID STIMULATING HORMONE 91915 TSH 0.873 uIU/mL 06/30/2017 Unknown [facility] 16657 Cholesterol 175 mg/dL 06/30/2017 Unkno wn [facility] 40639 Triglyceride 129 mg/dL 06/30/2017 Unkn own [facility] 44307 HDL CHOLESTEROL 51 06/30/2017 U nknown [facility] 13928 Chol/HDL Ratio 3.43 ratio 06/30/2017 U nknown [facility] 10327 NON-HDL Chol 124 mg/dL 06/30/2017 Unkn own [facility] 41219 LDL Cholesterol 98 mg/dL 06/30/2017 U nknown COMPLETE BLOOD COUNT 9056874 WBC 6.2 10e9/L 06/30/19 18 Unknown COMPLETE BLOOD COUNT 0647385 RBC 4.58 10e12/L 2017 Unknown COMPLETE BLOOD COUNT 2042263 HEMOGLOBIN 13.3 g/dL 06/30/19 18 Unknown COMPLETE BLOOD COUNT 9256705 HEMATOCRIT 41.6 % 06/30/19 18 Unknown COMPLETE BLOOD COUNT 1177354 MCV 90.8 fL 8 Unknown COMPLETE BLOOD COUNT 6498564 MCH 29.0 pg 8 Unknown COMPLETE BLOOD COUNT 7108860 MCHC 32.0 g/dL 8 Unknown COMPLETE BLOOD COUNT 5229939 PLATELET COUNT 271 10e9/L Unknown COMPLETE BLOOD COUNT 2552133 Mean Plt Volume 8.9 fL Unknown COMPLETE BLOOD COUNT 3446245 Neut Auto 53.5 % 8 Unknown COMPLETE BLOOD COUNT 9159611 Lymph Auto 36.4 % 06/30/19 18 Unknown COMPLETE BLOOD COUNT 5261580 [place] Auto 8.1 % 8 Unknown COMPLETE BLOOD COUNT 8822465 RDW 13.4 % 8 Unknown COMPLETE BLOOD COUNT 8577590 Eos Auto 1.5 % 8 Unknown COMPLETE BLOOD COUNT 3767332 Baso Auto 0.5 % 8 Unknown COMPLETE BLOOD COUNT 3236724 Neutrophil Abs 3.32 10e9/L Unknown COMPLETE BLOOD COUNT 5254916 Lymphocyte Abs 2.26 10e9/L Unknown COMPLETE BLOOD COUNT 2948222 Monocyte Abs 0.50 10e9/L 06/18 Unknown COMPLETE BLOOD COUNT 1002637 Eosinophil Abs 0.09 10e9/L Unknown COMPLETE BLOOD COUNT 4413503 RDW-SD 43.9 fL 8 Unknown COMPLETE BLOOD COUNT 9428941 Basophil Abs 0.03 10e9/L 06/18 Unknown COMPREHENSIVE METABOLIC 73088 AST 19 U/L 2017 Unknown COMPREHENSIVE METABOLIC 14053 ALT 22 U/L 2017 Unknown COMPREHENSIVE METABOLIC 23070 BUN 12 mg/dL 2017 Unknown COMPREHENSIVE METABOLIC 83495 ALBUMIN 4.9 g/dL 2017 Unknown COMPREHENSIVE METABOLIC 09312 CHLORIDE 106 mmol/L 06/30 Unknown COMPREHENSIVE METABOLIC 63406 Bili Total 0.4 mg/dL 06/30 Unknown COMPREHENSIVE METABOLIC 18865 ALK PHOS 66 U/L 2017 Unknown COMPREHENSIVE METABOLIC 86559 SODIUM 143 mmol/L 06/30 Unknown COMPREHENSIVE METABOLIC 97468 CREATININE 0.71 mg/dL 06/18 Unknown COMPREHENSIVE METABOLIC 79222 CALCIUM 9.9 mg/dL 2017 Unknown COMPREHENSIVE METABOLIC 24588 POTASSIUM 4.1 mmol/L 06/30 Unknown COMPREHENSIVE METABOLIC 35711 Total Protein 8.0 g/dL Unknown COMPREHENSIVE METABOLIC 42566 Glucose 87 mg/dL 2017 Unknown COMPREHENSIVE METABOLIC 31722 Bicarbonate 27 mmol/L 06/18 Unknown COMPREHENSIVE METABOLIC 82271 AGAP 10 mmol/L 2017 Unknown GFR CALC 8725318 GFR AA >60 ML/MIN 12/19/2013 Unknown GFR CALC 4674850 GFR NON-AA >60 ML/MIN 12/19/2013 Unknown LIPID GROUP 88664 HDL TEST 52 MG/DL 12/19/2013 Unknown [facility] 74178 TRIG 96 MG/DL 12/19/2013 Unknown [facility] 95641 TEST LDL 98 MG/DL 12/19/2013 Unknown [facility] 16352 CHOL 169 MG/DL 12/19/2013 Unknown [facility] GROUP 00850 RCHOL/HDL 3.25 RATIO 12/19/2013 Unknow n L[facility] GROUP 49144 NON-HDL CH 117 MG/DL 12/19/2013 Unknow n COMPLETE BLOOD COUNT 1632533 WBC 5.6 10e9/L 12/20/19 14 Unknown COMPLETE BLOOD COUNT 9152145 RBC 4.45 10e12/L 2013 Unknown COMPLETE BLOOD COUNT 6558078 HGB 13.0 g/dL 4 Unknown COMPLETE BLOOD COUNT 6326516 HCT DET 39.9 % 4 Unknown COMPLETE BLOOD COUNT 2335506 MCV 89.7 fL 4 Unknown COMPLETE BLOOD COUNT 8280293 MCH 29.2 pg 4 Unknown COMPLETE BLOOD COUNT 3543658 MCHC 32.6 g/dL 4 Unknown COMPLETE BLOOD COUNT 8838816 PLT 244 10e9/L 12/20/19 14 Unknown COMPLETE BLOOD COUNT 9051982 MPV 9.4 fL 4 Unknown COMPLETE BLOOD COUNT 9350012 PABLITO % 58.5 % 4 Unknown COMPLETE BLOOD COUNT 9742202 LY % 30.8 % 4 Unknown COMPLETE BLOOD COUNT 5730759 MON % 8.2 % 4 Unknown COMPLETE BLOOD COUNT 7174574 EOS % 2.0 % 4 Unknown COMPLETE BLOOD COUNT 1658044 BASO % 0.5 % 4 Unknown COMPLETE BLOOD COUNT 9481121 RDW 13.6 % 4 Unknown COMPLETE BLOOD COUNT 4541296 ABS PABLITO 3.28 10e9/L 014 Unknown COMPLETE BLOOD COUNT 2726914 ABS LYMPH 1.72 10e9/L 014 Unknown COMPLETE BLOOD COUNT 1858133 ABS MONO 0.46 10e9/L 014 Unknown COMPLETE BLOOD COUNT 8722106 ABS EOS 0.11 10e9/L 014 Unknown COMPLETE BLOOD COUNT 2833307 ABS BASO 0.03 10e9/L 014 Unknown COMPLETE BLOOD COUNT 7229036 RDW-SD 43.6 fL 4 Unknown FREE T4 07547 FREE T4 1.26 NG/DL 12/19/2013 Unknown COMPREHENSIVE METABOLIC 27165 AST 18 U/L 2013 Unknown COMPREHENSIVE METABOLIC 75773 ALT 22 IU/L 2013 Unknown COMPREHENSIVE METABOLIC 42141 BUN 11 MG/DL 2013 Unknown COMPREHENSIVE METABOLIC 65066 ALBUMIN 4.7 GM/DL 2013 Unknown COMPREHENSIVE METABOLIC 51419 CHLORIDE 108 MMOL/L 12/19 Unknown COMPREHENSIVE METABOLIC 37960 BILI TOT 0.3 MG/DL 2013 Unknown COMPREHENSIVE METABOLIC 59665 ALK PHOS 67 U/L 2013 Unknown COMPREHENSIVE METABOLIC 64057 SODIUM 141 MMOL/L 12/19 Unknown COMPREHENSIVE METABOLIC 78992 CREATININE 0.67 MG/DL 08/2013 Unknown COMPREHENSIVE METABOLIC 19866 CALCIUM 9.4 MG/DL 2013 Unknown COMPREHENSIVE METABOLIC 87604 POTASSIUM 4.1 MMOL/L 12/19 Unknown COMPREHENSIVE METABOLIC 77971 PROT TOT 7.0 GM/DL 2013 Unknown COMPREHENSIVE METABOLIC 30484 Glucose 94 MG/DL 2013 Unknown COMPREHENSIVE METABOLIC 48919 BICARB 27 MMOL/L 2013 Unknown COMPREHENSIVE METABOLIC 22734 ANION GAP 6 MEQ/L 2013 Unknown THYROID STIMULATING HORMONE 67549 TSH 0.547 uIU/ML 12/19/2013 Unknown GFR CALC 8009636 GFR AA >60 ML/MIN 02/03/2011 Unknown GFR CALC 8683612 GFR NON-AA >60 ML/MIN 02/03/2011 Unknown THYROID STIMULATING HORMONE 62459 TSH 0.818 uIU/ML 02/03/2011 Unknown COMPLETE BLOOD COUNT 97315 WBC 7.7 10e9/L 02/04/20 11 Unknown COMPLETE BLOOD COUNT 12375 RBC 4.23 10e12/L 2010 Unknown COMPLETE BLOOD COUNT 12688 HGB 11.9 g/dL 1 Unknown COMPLETE BLOOD COUNT 53053 HCT DET 36.5 % 1 Unknown COMPLETE BLOOD COUNT 11493 MCV 86.3 fL 1 Unknown COMPLETE BLOOD COUNT 26574 MCH 28.1 pg 1 Unknown COMPLETE BLOOD COUNT 81733 MCHC 32.6 g/dL 1 Unknown COMPLETE BLOOD COUNT 72363 PLT 244 10e9/L 02/04/20 11 Unknown COMPLETE BLOOD COUNT 63889 MPV 8.7 fL 1 Unknown COMPLETE BLOOD COUNT 21353 PABLITO % 58.9 % 1 Unknown COMPLETE BLOOD COUNT 11556 LY % 31.1 % 1 Unknown COMPLETE BLOOD COUNT 81817 MON % 7.9 % 1 Unknown COMPLETE BLOOD COUNT 31727 EOS % 1.8 % 1 Unknown COMPLETE BLOOD COUNT 78209 BASO % 0.3 % 1 Unknown COMPLETE BLOOD COUNT 19175 RDW 14.7 % 1 Unknown COMPLETE BLOOD COUNT 22674 ABS PABLITO 4.54 10e9/L 011 Unknown COMPLETE BLOOD COUNT 96680 ABS LYMPH 2.39 10e9/L 011 Unknown COMPLETE BLOOD COUNT 42616 ABS MONO 0.61 10e9/L 011 Unknown COMPLETE BLOOD COUNT 97055 ABS EOS 0.14 10e9/L 011 Unknown COMPLETE BLOOD COUNT 85520 ABS BASO 0.02 10e9/L 011 Unknown COMPLETE BLOOD COUNT 79417 RDW-SD 45.1 fL 1 Unknown COMPREHENSIVE METABOLIC 12030 AST 16 U/L 2010 Unknown COMPREHENSIVE METABOLIC 67963 ALT 21 IU/L 2010 Unknown COMPREHENSIVE METABOLIC 40182 BUN 9 MG/DL 2010 Unknown COMPREHENSIVE METABOLIC 44106 ALBUMIN 4.5 GM/DL 2010 Unknown COMPREHENSIVE METABOLIC 46112 CHLORIDE 104 MMOL/L 02/03 Unknown COMPREHENSIVE METABOLIC 37103 BILI TOT 0.2 MG/DL 2010 Unknown COMPREHENSIVE METABOLIC 76018 ALK PHOS 65 U/L 2010 Unknown COMPREHENSIVE METABOLIC 24885 SODIUM 137 MMOL/L 02/03 Unknown COMPREHENSIVE METABOLIC 81673 CREATININE 0.64 MG/DL 01/16 Unknown COMPREHENSIVE METABOLIC 01844 CALCIUM 8.8 MG/DL 2010 Unknown COMPREHENSIVE METABOLIC 79798 POTASSIUM 3.8 MMOL/L 02/03 Unknown COMPREHENSIVE METABOLIC 73499 PROT TOT 6.7 GM/DL 2010 Unknown COMPREHENSIVE METABOLIC 21284 Glucose 88 MG/DL 2010 Unknown COMPREHENSIVE METABOLIC 96171 BICARB 26 MMOL/L 2010 Unknown COMPREHENSIVE METABOLIC 77845 ANION GAP 7 MEQ/L 2010 Unknown FREE T4 67472 FREE T4 1.24 NG/DL 02/03/2011 Unknown Procedures Procedure Codes Date CEFTRIAXONE SODIUM INJECTION CPT-4: J0696 05/04/2019 THER/PROPH/DIAG INJ SC/IM CPT-4: 64710 05/04/2019 CEFTRIAXONE SODIUM INJECTION CPT-4: J0696 05/03/2019 THER/PROPH/DIAG INJ SC/IM CPT-4: 95983 05/03/2019 CEFTRIAXONE SODIUM INJECTION CPT-4: J0696 05/02/2019 THER/PROPH/DIAG INJ SC/IM CPT-4: 88154 05/02/2019 DEXAMETHASONE SODIUM PHOS CPT-4: J1100 10/19/2018 THER/PROPH/DIAG INJ SC/IM CPT-4: 40638 10/19/2018 URINE CULTURE/ COLONY COUNT CPT-4: 37799 10/19/2018 URINALYSIS NONAUTO W/O SCOPE CPT-4: 13569 10/19/2018 THROAT CULTURE CPT-4: 63208 07/29/2018 STREP A ASSAY W/OPTIC CPT-4: 45422 07/26/2018 SPECIMEN HANDLING OFFICE-LAB CPT-4: 11756 07/06/2018 OCCULT BLOOD FECES CPT-4: 24011 07/06/2018 ROUTINE VENIPUNCTURE CPT-4: 44546 12/19/2013 ASSAY OF FREE THYROXINE CPT-4: 05617 12/19/2013 ASSAY THYROID STIM HORMONE CPT-4: 13115 12/19/2013 COMPREHEN METABOLIC PANEL CPT-4: 63754 12/19/2013 COMPLETE CBC W/AUTO DIFF WBC CPT-4: 50378 12/19/2013 LIPID PANEL CPT-4: 52620 12/19/2013 OCCULT BLOOD FECES CPT-4: 42828 02/03/2011 SPECIMEN HANDLING OFFICE-LAB CPT-4: 32157 12/25/2009 OCCULT BLOOD FECES CPT-4: 62535 12/25/2009 Vital Signs Date Vital 05/05/2019 Blood [...] 1: 130/78 Code: 8480-6 BMI: 30.7 Code: 41567-0 Heart Rate 1: 76 bpm Height: 5'9" Respiratory Rate: 20 bpm Temperature: 36 .8 (C) / 98.3 (F) Weight: 208 lbs 06/30/2017 Blood Pressure 1: 126/80 Code: 8480-6 BMI: 30.9 Code: 62545-6 Heart Rate 1: 72 bpm Height: 5'9" Respiratory Rate: 20 bpm Temperature: 36 .7 (C) / 98.0 (F) Weight: 209 lbs 02/04/2016 Blood Pressure 1: 122/80 Code: 8480-6 BMI: 31.3 Code: 63503-7 Heart Rate 1: 80 bpm Height: 5'9" Respiratory Rate: 20 bpm Temperature: 36 .6 (C) / 97.8 (F) Weight: 212 lbs 12/19/2013 Blood Pressure 1: 116/78 Code: 8480-6 BMI: 30.1 Code: 91947-4 Heart Rate 1: 76 bpm Height: 5'9" Respiratory Rate: 20 bpm Temperature: 36 .8 (C) / 98.3 (F) Weight: 204 lbs 10/27/2012 Blood Pressure 1: 114/70 Code: 8480-6 BMI: 30.3 Code: 75737-9 Heart Rate 1: 68 bpm Height: 5'9" Respiratory Rate: 20 bpm Temperature: 36 .8 (C) / 98.3 (F) Weight: 205 lbs 09/01/2012 Blood Pressure 1: 118/82 Code: 8480-6 BMI: 30.9 Code: 36042-0 Heart Rate 1: 80 bpm Height: 5'9" Respiratory Rate: 20 bpm Temperature: 36 .8 (C) / 98.2 (F) Weight: 209 lbs 02/03/2011 Blood Pressure 1: 118/76 Code: 8480-6 BMI: 29.5 Code: 72436-6 Heart Rate 1: 72 bpm Height: 5'9" Weight: 200 lbs 12/25/2009 Blood Pressure 1: 122/76 Code: 8480-6 BMI: 29.5 Code: 75545-4 Heart Rate 1: 80 bpm Height: 5'9" [...] 11/24 Encounters Encounter Performer Location Codes Date ([id number]) NO CHARGE Diagnosis: Cellulitis of right breast[ICD10: N61.0] Josesito DEL ROSARIO DO [facility] CPT-4: 48356 05/05/2019 ([id number]) OFFICE/OUTPATIENT VISIT EST Diagnosis: Cellulitis of right breast[ICD10: N61.0] Josesito DEL ROSARIO DO [facility] CPT-4: 14860 05/04/2019 ([id number]) OFFICE/OUTPATIENT VISIT EST Diagnosis: Cellulitis of right breast[ICD10: N61.0] Josesito DEL ROSARIO DO [facility] CPT-4: 54162 05/03/2019 ([id number]) OFFICE/OUTPATIENT VISIT EST Diagnosis: Cellulitis of right breast[ICD10: N61.0] Josesito DEL ROSARIO DO [facility] CPT-4: 68831 05/02/2019 ([id number]) OFFICE/OUTPATIENT VISIT EST Diagnosis: Edema, unspecified[ICD10: R60.9] Diagnosis: Adverse effect of unspecified drugs, medicaments and biological substances, initial encounter[ICD10: T50.905A] Diagnosis: Gross hematuria[ICD10: R31.0] Josesito DEL ROSARIO DO [facility] CPT-4: 10805 10/19/2018 ([id number]) OFFICE/OUTPATIENT VISIT EST Diagnosis: URI, ACUTE[ICD10: J06.9] Josesito SHIELDS [facility] CPT-4: 42403 07/29/2018 ([id number]) OFFICE/OUTPATIENT VISIT EST Diagnosis: Acute pharyngitis, unspecified[ICD10: J02.9] Diagnosis: URI, ACUTE[ICD10: J06.9] Josesito SHIELDS [facility] CPT-4: 52629 07/26/2018 ([id number]) PREV VISIT EST AGE 40-64 Diagnosis: Encounter for general adult medical examination without abnormal findings[ICD10: Z00.00] Diagnosis: Encounter for gynecological examination (general) (routine) without abnormal findings[ICD10: Z01.419] Diagnosis: Menopausal and female climacteric states[ICD10: N95.1] Diagnosis: Other abnormal and inconclusive findings on diagnostic imaging of breast[ICD10: R92.8] Josesito DEL ROSARIO DO [facility] CPT-4: 24794 07/06/2018 ([id number]) PREV VISIT EST AGE 40-64 Diagnosis: Encounter for general adult medical examination without abnormal findings[ICD10: Z00.00] Diagnosis: Encounter for gynecological examination (general) (routine) without abnormal findings[ICD10: Z01.419] Josesito Lund [employer] CPT-4: 66460 06/30/2017 ([id number]) PREV VISIT EST AGE 40-64 Diagnosis: Encounter for general adult medical examination without abnormal findings[ICD10: Z00.00] Josesito DEL ROSARIO [employer] CPT-4: 97654 02/04/2016 ([id number]) PREV VISIT EST AGE 40-64 Diagnosis: ROUTINE MEDICAL EXAM[ICD9: V70.0] Diagnosis: MENOPAUSAL DISORDER[ICD9: 627.9] Josesito DEL ROSARIO DO [facility] CPT-4: 06168 12/19/2013 OFFICE/OUTPATIENT VISIT EST Diagnosis: MENOPAUSAL DISORDER[ICD9: 627.9] Josesito DEL ROSARIO [employer] CPT-4: 68359 10/27/2012 ([id number]) PREV VISIT EST AGE 40-64 Diagnosis: ROUTINE MEDICAL EXAM[ICD9: V70.0] Diagnosis: MENOPAUSAL DISORDER[ICD9: 627.9] Josesito DEL ROSARIO DO [facility] CPT-4: 23191 09/01/2012 PREV VISIT EST AGE 40-64 Diagnosis: ROUTINE GYNE EXAM[ICD9: V72.31] Diagnosis: ROUTINE MEDICAL EXAM[ICD9: V70.0] Josesito DEL ROSARIO [employer] CPT-4: 76043 02/03/2011 SPECIMEN HANDLING Diagnosis: [ICD9: ] Diagnosis: [ICD9: ] Josesito DEL ROSARIO DO [facility] CPT-4: 9900 0 02/03/2011 ([id number]) PREV VISIT, EST, AGE 40-64 Josesito Angelitoruss DEL ROSARIO DO [facility] CPT-4: 32381 12/25/2009 Plan of Care Planned Activity Notes Codes Status Date Visit Diagnosis Plan: Cellulitis of right breast Discu ssion: Having surgery tomorrow at ICD-9 : 611.0 ICD-10 : N61.0 05/05/2019 Visit Diagnosis Plan: Cellulitis of right breast Discu ssion: Repeat rocephin 1gm IM Continue clindamycin Recheck tomorrow ICD-9 : 611.0 ICD-10 : N61.0 05/04/2019 Appointment: Josesito Del Rosario WPtel: [address] [place] [address] US FOLLOW UP 05/04/2019 Visit Diagnosis Plan: Cellulitis of right breast Discu ssion: Repeat Rocephin 1gm IM today Continue clindamycin Recheck tomorrow ICD-9 : 611.0 ICD-10 : N61.0 05/03/2019 Appointment: Josesito Del Rosario WPtel: [address] [place] [address] US FOLLOW UP 05/03/2019 Visit Diagnosis Plan: Cellulitis of right breast Discu ssion: Rocephin 1gm IM now Start clindamycin with a probiotic Recheck tomorrow ICD-9 : 611.0 ICD-10 : N61.0 05/02/2019 Appointment: Josesito Del Rosario WPtel: [address] [place] [address] ACUTE ILLNESS 05/02/2019 Patient Education: clindamycin HCl- [employer] Coupon [id number] [email or web address] Completed 05/02/2019 Care Plan: TRANSVAGINAL US NON-OB LOINC : 74249-8 Pending 10/21/2018 Appointment: Josesito Del Rosario WPtel: [address] [place], [place] [phone] WT CHECK 10/20/2018 Visit Diagnosis Plan: Edema, [...] : 995.27 ICD-10 : T50.905A 10/19/2018 Appointment: Josesito Del Rosario WPtel: [address] [place], [place] [phone] 10/19/2018 Appointment: Josesito Del Rosario WPtel: [address] [place], [place] [phone] US Per DR CASEYCELED 08/02/2018 Visit Diagnosis Plan: URI, ACUTE Discussion: CXR negat johnna Lungs clear Only physical exam finding is injection on throat and mild fluid behind ears Will increase zyrtec to BID Throat Culture Notify surgeon of current course ICD-9 : 465.9 ICD-10 : J06.9 07/29/2018 Appointment: Josesito Del Rosario WPtel: [address] [place], [place] [phone] WORK IN 07/29/2018 Visit NOS Plan: Plan Notes: Supportive care. Rest, Fluids... 07/26/2018 Visit Diagnosis Plan: Acute pharyngitis, unspecified D iscussion: Strep Negative Cover with Zithromax with upcoming surgery next week but if worsens will let us know and will have to postpone surgery ICD-9 : 462 ICD-10 : J02.9 07/26/2018 Appointment: Josesito Del Rosario [facility]Ptel[id number] AC[place] I[facility] 07/26/2018 Visit Diagnosis Plan: Menopausal [...] R92.8 07/06/2018 Appointment: Josesito Del Rosario WPtel: [address] [place] [id number] US PAP 07/06/2018 Care Plan: MAMMOGRAM BOTH BREASTS Diagnostic Mammogram of [place] ft Breast LOINC : 42612-4 Pending 06/24/2018 Care Plan: US EXAM CHEST [...] Z00.00 06/30/2017 Appointment: Josesito Del Rosario WPtel: [id number] [place] [facility] 06/30/2017 Patient Education: Patient Medication Summary Completed 06/30/2017 Visit Plan: Update fasting lab Pap done Had mammogram Weight bearing exercise 02/04/2016 Appointment: Josesito Del Rosario WPtel: [address] [place] [address] 01/30 confirmed~sl PAP 02/04/2016 Patient Education: Patient Medication Summary Completed 02/04/2016 Appointment: Josesito Del Rosario WPtel: [address] [place] [address] RESCHEDULED 01/17/2016 Patient Education: Patient Medication Summary Completed 12/31/2015 Care Plan: MAMMOGRAM SCREENING LOINC : 2 6347-5 Pending 12/31/2015 Visit Plan: Try to decrease fluoxetine t o 10mg daily Check Mammo Check fasting lab Check Colonoscopy due to family hx of Colon Cancer 12/19/2013 Appointment: Josesito Del Rosario WPtel: [address] [place] [address] 12/16 vm PAP 12/19/2013 Patient Education: Patient Medication Summary Completed 12/19/2013 Visit Plan: Long discussion about HRT--p t has Breast Ca on both sides--Discussed BRCA gene testing in Mom Will try higher dose of fluoxetine 10/27/2012 Appointment: Josesito Del Rosario WPtel: [address] [place] [address] FOLLOW UP 10/27/2012 Patient Education: Patient Medication Summary Completed 10/27/2012 Visit Plan: Lab discussed Add fish oil 3 grams daily Long discussion about hormones Trial of fluoxetine 09/01/2012 Appointment: Josesito Del Rosario WPtel: [address] [place] [address] PAP 09/01/2012 Patient Education: Patient Medication Summary Completed 09/01/2012 Visit Plan: Pap Done and Mammogram order ed Fasting lab ordered 02/03/2011 Appointment: Josesito Del Rosario WPtel: [address] [place] [address] PAP 02/03/2011 Patient Education: Patient Medication Summary Completed 02/03/2011 Visit Plan: Pap done Mammo done last wee k Lab discussed Discussed Bioidentical Hormones 12/25/2009 Appointment: Josesito Del Rosario WPtel: [id number] PAP 12/25/2009 Patient Education: Patient Medication Summary [...]
--- OUTSIDE RECORDS SUMMARY | 2019-05-15 23:41 | XMS REPORT | CCD ---
Author Author Caridad Del Rosario D.O. 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 Name Role Phone PP Unavailable CCM Unavailable Summary Purpose Interface Exchange Insurance Providers Payer name Policy type / Coverage type Covered republican ID Effective Begin Date Effective End Date [facility] Commercial Insurance [id number] Un known Family History Family History data [...] Instructions clindamycin HCl 300 mg capsule RxNorm: 934044 1 Capsule (s) Oral three times a day 05/02/2019 05/09/2019 Active fluoxetine 20 mg tablet RxNorm: 488660 1 Tablet(s) Oral QD 03/29/20 19 09/24/2019 Active Zithromax Z-Khoi 250 mg tablet RxNorm: 671544 Tablet(s) Oral as directed 03/25/2019 03/25/2019 Inactive Zithromax Z-Khoi 250 mg tablet RxNorm: 295360 Tablet(s) Oral as directed 03/25/2019 03/24/2019 Inactive famotidine 20 mg tablet RxNorm: 246045 1 Tablet(s) PO BID 10/19/2018 02/15/2019 Inactive Tessalon Perles 100 mg capsule RxNorm: 860633 1 Capsule (s) PO TID as needed for cough 07/26/2018 10/18/2018 Inactive Zithromax 500 mg tablet RxNorm: 332068 1 Tablet(s) PO QD 07/26/2018 0 07/25/2018 Inactive Zithromax 500 mg tablet RxNorm: 204259 1 Tablet(s) PO QD 07/26/2018 0 07/30/2018 Inactive Xanax 0.25 mg tablet RxNorm: 081151 1/2-1 Tablet(s) PO BID 06/01/19 19 No Stop Date Active fluoxetine 20 mg tablet RxNorm: 964378 1 Tablet(s) PO Q D Due for annual appointment in 06/01/2018 02/25/2019 Inactive fluoxetine 20 mg tablet RxNorm: 794470 1 Tablet(s) PO Q D Due for annual in [facility] 06/01/2018 02/25/2019 Inactive fluoxetine 20 mg tablet RxNorm: 203669 1 Tablet(s) PO QD 08/05/2017 1 07/02/2017 Inactive fluoxetine 20 mg tablet RxNorm: 830663 1 Tablet(s) PO QD 08/04/2017 0 08/04/2017 Inactive Xanax 0.25 mg tablet RxNorm: 505854 1/2-1 Tablet(s) PO BID 07/02/19 18 05/31/2018 Inactive fluoxetine 10 mg capsule RxNorm: 529486 2 Capsule(s) PO QAM 018 07/05/2018 Inactive Generic For:PROZAC 10 MG PUL VULE 09/24/2015 10:15:02 AM N O T I C E Last quantity doesn't match original quantity fluoxetine 10 mg capsule RxNorm: 334071 2 Capsule(s) PO QAM Routine wellness due after 02-04-17 12/03/2016 03/02/2017 Inactive Generic For:PROZ AC 10 MG PULVULE 09/24/2015 10:15:02 AM N O T I C E Last quantity doesn't match original quantity Xanax 0.25 mg tablet RxNorm: 046797 1/2-1 Tablet(s) PO BID 02/05/20 16 07/01/2017 Inactive fluoxetine 10 mg capsule RxNorm: 710652 2 Capsule(s) PO QAM 016 07/25/2018 Inactive fluoxetine 10 mg capsule RxNorm: 159958 2 Capsule(s) PO QAM 016 12/03/2016 Inactive Generic For:PROZAC 10 MG PUL VULE 09/24/2015 10:15:02 AM N O T I C E Last quantity doesn't match original quantity fluoxetine 10 mg capsule RxNorm: 827536 2 Capsule(s) PO QAM TAKE 2 CAPSULES BY MOUTH EVERY MORNING 11/16/2015 02/03/2016 Inactive Generic For: PROZAC 10 MG PULVULE 09/24/2015 10:15:02 AM N O T I C E Last quantity doesn't match original quantity fluoxetine 10 mg capsule RxNorm: 230549 2 Capsule(s) PO QAM TAKE 2 CAPSULES BY MOUTH EVERY MORNING 09/24/2015 11/15/2015 Inactive Generic For: PROZAC 10 MG PULVULE 09/24/2015 10:15:02 AM N O T I C E Last quantity doesn't match original quantity fluoxetine 10 mg capsule RxNorm: 515557 2 Capsule(s) PO QAM 015 09/24/2015 Inactive fluoxetine 10 mg capsule RxNorm: 285793 2 Capsule(s) PO QAM 015 07/28/2018 Inactive fluoxetine 10 mg capsule RxNorm: 421912 2 Capsule(s) PO QAM 014 05/21/2014 Inactive Xanax 0.25 mg tablet RxNorm: 294653 1/2-1 Tablet(s) PO BID 04/21/20 13 No Stop Date Active fluoxetine 10 mg capsule RxNorm: 689893 2 Capsule(s) PO QAM 013 01/24/2013 Inactive fluoxetine 10 mg capsule RxNorm: 868801 1 Capsule(s) PO QAM 013 10/26/2012 Inactive Multivitamin & Mineral Formula Tab RxNorm: 1 Tablet(s) PO QD No St art Date Active Zyrtec 10 mg tablet RxNorm: 1160180 1 Tablet(s) PO BID No Start Date Active Prilosec OTC 20 mg tablet,delayed release RxNorm: 122098 1 Tabl et(s) PO QD No Start Date Active Tessalon Perles 100 mg capsule RxNorm: 668342 1 Capsule (s) PO TID as needed for cough No Start Date 07/25/2018 Inactive Biotin Oral RxNorm: Oral No Start Date 10/18/2018 Inactive Zithromax Z-Khoi oral RxNorm: 94985 oral No Start Date 03/24/2019 Inactive Echinacea ACZ oral RxNorm: oral No Start Date 07/28/2018 Inacti ve Vitamin D3 1000 units Capsule RxNorm: 1 Capsule(s) PO QD No St art Date 07/28/2018 Inactive Black Cohosh Oral RxNorm: Oral No Start Date 07/28/2018 Inactiv e Xanax 0.25 mg tablet RxNorm: 029879 1/2-1 Tablet(s) PO BID No Start Date 04/20/2013 Inactive Zyrtec 10 mg tablet RxNorm: 9713485 1 Tablet(s) PO QD as needed No Start Date 10/18/2018 Inactive Vitamin C 1,000 mg tablet RxNorm: 138567 1 Tablet(s) PO QD No Start Date 10/18/2018 Inactive fluoxetine 20 mg tablet RxNorm: 815833 1 Tablet(s) PO QD No Start D ate 08/03/2017 Inactive Medication Administered No Medication Administered data Immunizations Vaccine Codes Date Status Influenza CVX: 141 04/08/2019 Influenza CVX: 141 04/26/2018 Results Observation Observation Code Item Item Code Result Date S ervice Location CULTURE, URINE, ROUTINE 395 CULTURE, URINE, ROUTINE 10/20/2018 [facility] [address] [place] [address] GFR CALC [id number] GFR Non Afr Amr >60 mL/min 07/05/2018 Un known GFR CALC 8551451 GFR Afr Amr >60 mL/min 07/05/2018 Unknow n FREE T4 11783 T4 Free 0.94 ng/dL 07/05/2018 Unknown [facility] 82360 Cholesterol 165 mg/dL 07/05/2018 Unkno wn [facility] 81732 Triglyceride 108 mg/dL 07/05/2018 Unkn own [facility] 48608 HDL CHOLESTEROL 50 mg/dL 07/05/2018 U nknown [facility] 42266 Chol/HDL Ratio 3.30 ratio 07/05/2018 U nknown [facility] 42979 NON-HDL Chol 115 mg/dL 07/05/2018 Unkn own [facility] 05485 LDL Cholesterol 93 mg/dL 07/05/2018 U nknown THYROID STIMULATING HORMONE 93441 TSH 0.937 uIU/mL 07/05/2018 Unknown COMPREHENSIVE METABOLIC 18973 AST 19 U/L 2018 Unknown COMPREHENSIVE METABOLIC 52693 ALT 21 U/L 2018 Unknown COMPREHENSIVE METABOLIC 09667 BUN 10 mg/dL 2018 Unknown COMPREHENSIVE METABOLIC 24238 ALBUMIN 4.3 g/dL 2018 Unknown COMPREHENSIVE METABOLIC 76688 CHLORIDE 106 mmol/L 07/05 Unknown COMPREHENSIVE METABOLIC 74810 Bili Total 0.3 mg/dL 07/05 Unknown COMPREHENSIVE METABOLIC 66246 ALK PHOS 59 U/L 2018 Unknown COMPREHENSIVE METABOLIC 83803 SODIUM 140 mmol/L 07/05 Unknown COMPREHENSIVE METABOLIC 00366 CREATININE 0.68 mg/dL 06/18 Unknown COMPREHENSIVE METABOLIC 45814 CALCIUM 9.2 mg/dL 2018 Unknown COMPREHENSIVE METABOLIC 01245 POTASSIUM 4.0 mmol/L 07/05 Unknown COMPREHENSIVE METABOLIC 82455 Total Protein 7.1 g/dL Unknown COMPREHENSIVE METABOLIC 34414 Glucose 84 mg/dL 2018 Unknown COMPREHENSIVE METABOLIC 13228 Bicarbonate 27 mmol/L 06/18 Unknown COMPREHENSIVE METABOLIC 54044 AGAP 7 mmol/L 2018 Unknown COMPLETE BLOOD COUNT 7141807 WBC 6.0 10e9/L 07/05/19 19 Unknown COMPLETE BLOOD COUNT 6964845 RBC 4.36 10e12/L 2018 Unknown COMPLETE BLOOD COUNT 7781395 HEMOGLOBIN 12.9 g/dL 07/05/19 19 Unknown COMPLETE BLOOD COUNT 2694544 HEMATOCRIT 39.1 % 07/05/19 19 Unknown COMPLETE BLOOD COUNT [id number] MCV 89.7 fL 9 Unknown COMPLETE BLOOD COUNT [id number] MCH 29.6 pg 9 Unknown COMPLETE BLOOD COUNT 1818459 MCHC 33.0 g/dL 9 Unknown COMPLETE BLOOD COUNT 4490454 PLATELET COUNT 270 10e9/L Unknown COMPLETE BLOOD COUNT 9265478 Mean Plt Volume 9.0 fL Unknown COMPLETE BLOOD COUNT 8976824 Neut Auto 53.8 % 9 Unknown COMPLETE BLOOD COUNT 1238211 Lymph Auto 35.8 % 07/05/19 19 Unknown COMPLETE BLOOD COUNT 1959178 [facility] Auto 7.9 % 9 Unknown COMPLETE BLOOD COUNT 4381741 RDW 13.9 % 9 Unknown COMPLETE BLOOD COUNT 9164292 Eos Auto 2.0 % 9 Unknown COMPLETE BLOOD COUNT 8330045 Baso Auto 0.5 % 9 Unknown COMPLETE BLOOD COUNT 2568649 Neutrophil Abs 3.23 10e9/L Unknown COMPLETE BLOOD COUNT 8777347 Lymphocyte Abs 2.15 10e9/L Unknown COMPLETE BLOOD COUNT 5294368 Monocyte Abs 0.47 10e9/L 06/18 Unknown COMPLETE BLOOD COUNT 8354589 Eosinophil Abs 0.12 10e9/L Unknown COMPLETE BLOOD COUNT [id number] RDW-SD 44.5 fL 9 Unknown COMPLETE BLOOD COUNT 4376856 Basophil Abs 0.03 10e9/L 06/18 Unknown FREE T4 83698 T4 Free 1.21 ng/dL 06/30/2017 Unknown GFR CALC 6053330 GFR Non Afr Amr >60 mL/min 06/30/2017 Un known GFR CALC 7958624 GFR Afr Amr >60 mL/min 06/30/2017 Unknow n THYROID STIMULATING HORMONE 39113 TSH 0.873 uIU/mL 06/30/2017 Unknown [facility] 56376 Cholesterol 175 mg/dL 06/30/2017 Unkno wn [facility] 52489 Triglyceride 129 mg/dL 06/30/2017 Unkn own [facility] 71857 HDL CHOLESTEROL 51 06/30/2017 U nknown [facility] 66504 Chol/HDL Ratio 3.43 ratio 06/30/2017 U nknown [facility] 63893 NON-HDL Chol 124 mg/dL 06/30/2017 Unkn own [facility] 90695 LDL Cholesterol 98 mg/dL 06/30/2017 U nknown COMPLETE BLOOD COUNT 0735241 WBC 6.2 10e9/L 06/30/19 18 Unknown COMPLETE BLOOD COUNT 2728768 RBC 4.58 10e12/L 2017 Unknown COMPLETE BLOOD COUNT 3459425 HEMOGLOBIN 13.3 g/dL 06/30/19 18 Unknown COMPLETE BLOOD COUNT 6692694 HEMATOCRIT 41.6 % 06/30/19 18 Unknown COMPLETE BLOOD COUNT 3223404 MCV 90.8 fL 8 Unknown COMPLETE BLOOD COUNT 3481814 MCH 29.0 pg 8 Unknown COMPLETE BLOOD COUNT 2392016 MCHC 32.0 g/dL 8 Unknown COMPLETE BLOOD COUNT 7156197 PLATELET COUNT 271 10e9/L Unknown COMPLETE BLOOD COUNT 8231715 Mean Plt Volume 8.9 fL Unknown COMPLETE BLOOD COUNT 4284188 Neut Auto 53.5 % 8 Unknown COMPLETE BLOOD COUNT 3354074 Lymph Auto 36.4 % 06/30/19 18 Unknown COMPLETE BLOOD COUNT 5336229 [facility] Auto 8.1 % 8 Unknown COMPLETE BLOOD COUNT 1662341 RDW 13.4 % 8 Unknown COMPLETE BLOOD COUNT 4929373 Eos Auto 1.5 % 8 Unknown COMPLETE BLOOD COUNT 8700454 Baso Auto 0.5 % 8 Unknown COMPLETE BLOOD COUNT 6005563 Neutrophil Abs 3.32 10e9/L Unknown COMPLETE BLOOD COUNT 6992787 Lymphocyte Abs 2.26 10e9/L Unknown COMPLETE BLOOD COUNT 4830907 Monocyte Abs 0.50 10e9/L 06/18 Unknown COMPLETE BLOOD COUNT 2350905 Eosinophil Abs 0.09 10e9/L Unknown COMPLETE BLOOD COUNT 3718636 RDW-SD 43.9 fL 8 Unknown COMPLETE BLOOD COUNT 6943993 Basophil Abs 0.03 10e9/L 06/18 Unknown COMPREHENSIVE METABOLIC 23894 AST 19 U/L 2017 Unknown COMPREHENSIVE METABOLIC 31407 ALT 22 U/L 2017 Unknown COMPREHENSIVE METABOLIC 39851 BUN 12 mg/dL 2017 Unknown COMPREHENSIVE METABOLIC 41222 ALBUMIN 4.9 g/dL 2017 Unknown COMPREHENSIVE METABOLIC 35627 CHLORIDE 106 mmol/L 06/30 Unknown COMPREHENSIVE METABOLIC 58609 Bili Total 0.4 mg/dL 06/30 Unknown COMPREHENSIVE METABOLIC 96412 ALK PHOS 66 U/L 2017 Unknown COMPREHENSIVE METABOLIC 69608 SODIUM 143 mmol/L 06/30 Unknown COMPREHENSIVE METABOLIC 57841 CREATININE 0.71 mg/dL 06/18 Unknown COMPREHENSIVE METABOLIC 95915 CALCIUM 9.9 mg/dL 2017 Unknown COMPREHENSIVE METABOLIC 38540 POTASSIUM 4.1 mmol/L 06/30 Unknown COMPREHENSIVE METABOLIC 69572 Total Protein 8.0 g/dL Unknown COMPREHENSIVE METABOLIC 07116 Glucose 87 mg/dL 2017 Unknown COMPREHENSIVE METABOLIC 00954 Bicarbonate 27 mmol/L 06/18 Unknown COMPREHENSIVE METABOLIC 63080 AGAP 10 mmol/L 2017 Unknown GFR CALC 8993142 GFR AA >60 ML/MIN 12/19/2013 Unknown GFR CALC 5033841 GFR NON-AA >60 ML/MIN 12/19/2013 Unknown L[facility] GROUP 63133 HDL TEST 52 MG/DL 12/19/2013 Unknown [facility] 15441 TRIG 96 MG/DL 12/19/2013 Unknown [facility] 58042 TEST LDL 98 MG/DL 12/19/2013 Unknown [facility] GROUP 15389 CHOL 169 MG/DL 12/19/2013 Unknown [facility] GROUP 59223 RCHOL/HDL 3.25 RATIO 12/19/2013 Unknow n L[facility] GROUP 72243 NON-HDL CH 117 MG/DL 12/19/2013 Unknow n COMPLETE BLOOD COUNT 8021912 WBC 5.6 10e9/L 12/20/19 14 Unknown COMPLETE BLOOD COUNT 1240270 RBC 4.45 10e12/L 2013 Unknown COMPLETE BLOOD COUNT 8476758 HGB 13.0 g/dL 4 Unknown COMPLETE BLOOD COUNT 8660720 HCT DET 39.9 % 4 Unknown COMPLETE BLOOD COUNT 8516796 MCV 89.7 fL 4 Unknown COMPLETE BLOOD COUNT 0727923 MCH 29.2 pg 4 Unknown COMPLETE BLOOD COUNT 4466825 MCHC 32.6 g/dL 4 Unknown COMPLETE BLOOD COUNT 6163659 PLT 244 10e9/L 12/20/19 14 Unknown COMPLETE BLOOD COUNT 9248612 MPV 9.4 fL 4 Unknown COMPLETE BLOOD COUNT 2266899 PABLITO % 58.5 % 4 Unknown COMPLETE BLOOD COUNT 1896335 LY % 30.8 % 4 Unknown COMPLETE BLOOD COUNT 4584609 MON % 8.2 % 4 Unknown COMPLETE BLOOD COUNT 7904738 EOS % 2.0 % 4 Unknown COMPLETE BLOOD COUNT 6507701 BASO % 0.5 % 4 Unknown COMPLETE BLOOD COUNT 4808101 RDW 13.6 % 4 Unknown COMPLETE BLOOD COUNT 6206285 ABS PABLITO 3.28 10e9/L 014 Unknown COMPLETE BLOOD COUNT 7600088 ABS LYMPH 1.72 10e9/L 014 Unknown COMPLETE BLOOD COUNT 2032789 ABS MONO 0.46 10e9/L 014 Unknown COMPLETE BLOOD COUNT 3137050 ABS EOS 0.11 10e9/L 014 Unknown COMPLETE BLOOD COUNT 7745802 ABS BASO 0.03 10e9/L 014 Unknown COMPLETE BLOOD COUNT 2152285 RDW-SD 43.6 fL 4 Unknown FREE T4 40842 FREE T4 1.26 NG/DL 12/19/2013 Unknown COMPREHENSIVE METABOLIC 61398 AST 18 U/L 2013 Unknown COMPREHENSIVE METABOLIC 97262 ALT 22 IU/L 2013 Unknown COMPREHENSIVE METABOLIC 69787 BUN 11 MG/DL 2013 Unknown COMPREHENSIVE METABOLIC 43126 ALBUMIN 4.7 GM/DL 2013 Unknown COMPREHENSIVE METABOLIC 58021 CHLORIDE 108 MMOL/L 12/19 Unknown COMPREHENSIVE METABOLIC 16254 BILI TOT 0.3 MG/DL 2013 Unknown COMPREHENSIVE METABOLIC 79696 ALK PHOS 67 U/L 2013 Unknown COMPREHENSIVE METABOLIC 44374 SODIUM 141 MMOL/L 12/19 Unknown COMPREHENSIVE METABOLIC 32837 CREATININE 0.67 MG/DL 08/2013 Unknown COMPREHENSIVE METABOLIC 79764 CALCIUM 9.4 MG/DL 2013 Unknown COMPREHENSIVE METABOLIC 20835 POTASSIUM 4.1 MMOL/L 12/19 Unknown COMPREHENSIVE METABOLIC 60256 PROT TOT 7.0 GM/DL 2013 Unknown COMPREHENSIVE METABOLIC 34455 Glucose 94 MG/DL 2013 Unknown COMPREHENSIVE METABOLIC 26637 BICARB 27 MMOL/L 2013 Unknown COMPREHENSIVE METABOLIC 23781 ANION GAP 6 MEQ/L 2013 Unknown THYROID STIMULATING HORMONE 98414 TSH 0.547 uIU/ML 12/19/2013 Unknown GFR CALC 8195685 GFR AA >60 ML/MIN 02/03/2011 Unknown GFR CALC 1703740 GFR NON-AA >60 ML/MIN 02/03/2011 Unknown THYROID STIMULATING HORMONE 06085 TSH 0.818 uIU/ML 02/03/2011 Unknown COMPLETE BLOOD COUNT 56697 WBC 7.7 10e9/L 02/04/20 11 Unknown COMPLETE BLOOD COUNT 30609 RBC 4.23 10e12/L 2010 Unknown COMPLETE BLOOD COUNT 24299 HGB 11.9 g/dL 1 Unknown COMPLETE BLOOD COUNT 66858 HCT DET 36.5 % 1 Unknown COMPLETE BLOOD COUNT 40361 MCV 86.3 fL 1 Unknown COMPLETE BLOOD COUNT 72193 MCH 28.1 pg 1 Unknown COMPLETE BLOOD COUNT 52655 MCHC 32.6 g/dL 1 Unknown COMPLETE BLOOD COUNT 58289 PLT 244 10e9/L 02/04/20 11 Unknown COMPLETE BLOOD COUNT 30856 MPV 8.7 fL 1 Unknown COMPLETE BLOOD COUNT 37481 PABLITO % 58.9 % 1 Unknown COMPLETE BLOOD COUNT 12716 LY % 31.1 % 1 Unknown COMPLETE BLOOD COUNT 22721 MON % 7.9 % 1 Unknown COMPLETE BLOOD COUNT 47374 EOS % 1.8 % 1 Unknown COMPLETE BLOOD COUNT 41795 BASO % 0.3 % 1 Unknown COMPLETE BLOOD COUNT 52352 RDW 14.7 % 1 Unknown COMPLETE BLOOD COUNT 48039 ABS PABLITO 4.54 10e9/L 011 Unknown COMPLETE BLOOD COUNT 11381 ABS LYMPH 2.39 10e9/L 011 Unknown COMPLETE BLOOD COUNT 40076 ABS MONO 0.61 10e9/L 011 Unknown COMPLETE BLOOD COUNT 40681 ABS EOS 0.14 10e9/L 011 Unknown COMPLETE BLOOD COUNT 48649 ABS BASO 0.02 10e9/L 011 Unknown COMPLETE BLOOD COUNT 97962 RDW-SD 45.1 fL 1 Unknown COMPREHENSIVE METABOLIC 54381 AST 16 U/L 2010 Unknown COMPREHENSIVE METABOLIC 45934 ALT 21 IU/L 2010 Unknown COMPREHENSIVE METABOLIC 90999 BUN 9 MG/DL 2010 Unknown COMPREHENSIVE METABOLIC 18044 ALBUMIN 4.5 GM/DL 2010 Unknown COMPREHENSIVE METABOLIC 41119 CHLORIDE 104 MMOL/L 02/03 Unknown COMPREHENSIVE METABOLIC 09603 BILI TOT 0.2 MG/DL 2010 Unknown COMPREHENSIVE METABOLIC 22732 ALK PHOS 65 U/L 2010 Unknown COMPREHENSIVE METABOLIC 89431 SODIUM 137 MMOL/L 02/03 Unknown COMPREHENSIVE METABOLIC 64215 CREATININE 0.64 MG/DL 01/16 Unknown COMPREHENSIVE METABOLIC 50042 CALCIUM 8.8 MG/DL 2010 Unknown COMPREHENSIVE METABOLIC 75864 POTASSIUM 3.8 MMOL/L 02/03 Unknown COMPREHENSIVE METABOLIC 01249 PROT TOT 6.7 GM/DL 2010 Unknown COMPREHENSIVE METABOLIC 10310 Glucose 88 MG/DL 2010 Unknown COMPREHENSIVE METABOLIC 42635 BICARB 26 MMOL/L 2010 Unknown COMPREHENSIVE METABOLIC 75661 ANION GAP 7 MEQ/L 2010 Unknown FREE T4 35575 FREE T4 1.24 NG/DL 02/03/2011 Unknown Procedures Procedure Codes Date CEFTRIAXONE SODIUM INJECTION CPT-4: J0696 05/04/2019 THER/PROPH/DIAG INJ SC/IM CPT-4: 12436 05/04/2019 CEFTRIAXONE SODIUM INJECTION CPT-4: J0696 05/03/2019 THER/PROPH/DIAG INJ SC/IM CPT-4: 49932 05/03/2019 CEFTRIAXONE SODIUM INJECTION CPT-4: J0696 05/02/2019 THER/PROPH/DIAG INJ SC/IM CPT-4: 09106 05/02/2019 DEXAMETHASONE SODIUM PHOS CPT-4: J1100 10/19/2018 THER/PROPH/DIAG INJ SC/IM CPT-4: 30364 10/19/2018 URINE CULTURE/ COLONY COUNT CPT-4: 06390 10/19/2018 URINALYSIS NONAUTO W/O SCOPE CPT-4: 48272 10/19/2018 THROAT CULTURE CPT-4: 08149 07/29/2018 STREP A ASSAY W/OPTIC CPT-4: 23072 07/26/2018 SPECIMEN HANDLING OFFICE-LAB CPT-4: 97752 07/06/2018 OCCULT BLOOD FECES CPT-4: 48336 07/06/2018 ROUTINE VENIPUNCTURE CPT-4: 77558 12/19/2013 ASSAY OF FREE THYROXINE CPT-4: 38285 12/19/2013 ASSAY THYROID STIM HORMONE CPT-4: 34261 12/19/2013 COMPREHEN METABOLIC PANEL CPT-4: 85504 12/19/2013 COMPLETE CBC W/AUTO DIFF WBC CPT-4: 20679 12/19/2013 LIPID PANEL CPT-4: 61378 12/19/2013 OCCULT BLOOD FECES CPT-4: 06263 02/03/2011 SPECIMEN HANDLING OFFICE-LAB CPT-4: 75453 12/25/2009 OCCULT BLOOD FECES CPT-4: 35733 12/25/2009 Vital Signs Date Vital 05/05/2019 Blood [...] 1: 130/78 Code: 8480-6 BMI: 30.7 Code: 09745-2 Heart Rate 1: 76 bpm Height: 5'9" Respiratory Rate: 20 bpm Temperature: 36 .8 (C) / 98.3 (F) Weight: 208 lbs 06/30/2017 Blood Pressure 1: 126/80 Code: 8480-6 BMI: 30.9 Code: 79930-4 Heart Rate 1: 72 bpm Height: 5'9" Respiratory Rate: 20 bpm Temperature: 36 .7 (C) / 98.0 (F) Weight: 209 lbs 02/04/2016 Blood Pressure 1: 122/80 Code: 8480-6 BMI: 31.3 Code: 35597-8 Heart Rate 1: 80 bpm Height: 5'9" Respiratory Rate: 20 bpm Temperature: 36 .6 (C) / 97.8 (F) Weight: 212 lbs 12/19/2013 Blood Pressure 1: 116/78 Code: 8480-6 BMI: 30.1 Code: 05079-5 Heart Rate 1: 76 bpm Height: 5'9" Respiratory Rate: 20 bpm Temperature: 36 .8 (C) / 98.3 (F) Weight: 204 lbs 10/27/2012 Blood Pressure 1: 114/70 Code: 8480-6 BMI: 30.3 Code: 26363-9 Heart Rate 1: 68 bpm Height: 5'9" Respiratory Rate: 20 bpm Temperature: 36 .8 (C) / 98.3 (F) Weight: 205 lbs 09/01/2012 Blood Pressure 1: 118/82 Code: 8480-6 BMI: 30.9 Code: 19266-3 Heart Rate 1: 80 bpm Height: 5'9" Respiratory Rate: 20 bpm Temperature: 36 .8 (C) / 98.2 (F) Weight: 209 lbs 02/03/2011 Blood Pressure 1: 118/76 Code: 8480-6 BMI: 29.5 Code: 88596-0 Heart Rate 1: 72 bpm Height: 5'9" Weight: 200 lbs 12/25/2009 Blood Pressure 1: 122/76 Code: 8480-6 BMI: 29.5 Code: 12259-7 Heart Rate 1: 80 bpm Height: 5'9" [...] 11/24 Encounters Encounter Performer Location Codes Date ([id number]) NO CHARGE Diagnosis: Cellulitis of right breast[ICD10: N61.0] Josesito DEL ROSARIO DO [facility] CPT-4: 03501 05/05/2019 ([id number]) OFFICE/OUTPATIENT VISIT EST Diagnosis: Cellulitis of right breast[ICD10: N61.0] Josesito DEL ROSARIO [facility] CPT-4: 21257 05/04/2019 ([id number]) OFFICE/OUTPATIENT VISIT EST Diagnosis: Cellulitis of right breast[ICD10: N61.0] Josesito DEL ROSARIO [facility] CPT-4: 88742 05/03/2019 ([id number]) OFFICE/OUTPATIENT VISIT EST Diagnosis: Cellulitis of right breast[ICD10: N61.0] Josesito DEL ROSAR[facility] CPT-4: 46295 05/02/2019 ([id number]) OFFICE/OUTPATIENT VISIT EST Diagnosis: Edema, unspecified[ICD10: R60.9] Diagnosis: Adverse effect of unspecified drugs, medicaments and biological substances, initial encounter[ICD10: T50.905A] Diagnosis: Gross hematuria[ICD10: R31.0] Josesito DEL ROSARIO DO [facility] CPT-4: 42132 10/19/2018 ([id number]) OFFICE/OUTPATIENT VISIT EST Diagnosis: URI, ACUTE[ICD10: J06.9] Josesito SHIELDS [facility] CPT-4: 93288 07/29/2018 ([id number]) OFFICE/OUTPATIENT VISIT EST Diagnosis: Acute pharyngitis, unspecified[ICD10: J02.9] Diagnosis: URI, ACUTE[ICD10: J06.9] Josesito SHIELDS [facility] CPT-4: 99311 07/26/2018 ([id number]) PREV VISIT EST AGE 40-64 Diagnosis: Encounter for general adult medical examination without abnormal findings[ICD10: Z00.00] Diagnosis: Encounter for gynecological examination (general) (routine) without abnormal findings[ICD10: Z01.419] Diagnosis: Menopausal and female climacteric states[ICD10: N95.1] Diagnosis: Other abnormal and inconclusive findings on diagnostic imaging of breast[ICD10: R92.8] Josesito DEL ROSARIO DO [facility] CPT-4: 48397 07/06/2018 ([id number]) PREV VISIT EST AGE 40-64 Diagnosis: Encounter for general adult medical examination without abnormal findings[ICD10: Z00.00] Diagnosis: Encounter for gynecological examination (general) (routine) without abnormal findings[ICD10: Z01.419] Josesito Lund [facility] CPT-4: 57696 06/30/2017 ([id number]) PREV VISIT EST AGE 40-64 Diagnosis: Encounter for general adult medical examination without abnormal findings[ICD10: Z00.00] Josesito DEL [facility]ARIO [facility] CPT-4: 92165 02/04/2016 ([id number]) PREV VISIT EST AGE 40-64 Diagnosis: ROUTINE MEDICAL EXAM[ICD9: V70.0] Diagnosis: MENOPAUSAL DISORDER[ICD9: 627.9] Josesito DEL ROSARIO DO [facility] CPT-4: 17705 12/19/2013 OFFICE/OUTPATIENT VISIT EST Diagnosis: MENOPAUSAL DISORDER[ICD9: 627.9] Josesito DEL ROSARIO [facility] CPT-4: 76844 10/27/2012 ([id number]) PREV VISIT EST AGE 40-64 Diagnosis: ROUTINE MEDICAL EXAM[ICD9: V70.0] Diagnosis: MENOPAUSAL DISORDER[ICD9: 627.9] Josesito DEL ROSARIO DO [facility] CPT-4: 29257 09/01/2012 PREV VISIT EST AGE 40-64 Diagnosis: ROUTINE GYNE EXAM[ICD9: V72.31] Diagnosis: ROUTINE MEDICAL EXAM[ICD9: V70.0] Josesito DEL ROSARIO [facility] CPT-4: 07370 02/03/2011 SPECIMEN HANDLING Diagnosis: [ICD9: ] Diagnosis: [ICD9: ] Josesito DEL ROSARIO DO [facility] CPT-4: 9900 0 02/03/2011 ([id number]) PREV VISIT, EST, AGE 40-64 Josesito Angelitoruss DEL ROSARIO DO [facility] CPT-4: 45757 12/25/2009 Plan of Care Planned Activity Notes Codes Status Date Visit Diagnosis Plan: Cellulitis of right breast Discu ssion: Having surgery tomorrow at ICD-9 : 611.0 ICD-10 : N61.0 05/05/2019 Visit Diagnosis Plan: Cellulitis of right breast Discu ssion: Repeat rocephin 1gm IM Continue clindamycin Recheck tomorrow ICD-9 : 611.0 ICD-10 : N61.0 05/04/2019 Appointment: Josesito Del Rosario WPtel: [address] [place] [address] US FOLLOW UP 05/04/2019 Visit Diagnosis Plan: Cellulitis of right breast Discu ssion: Repeat Rocephin 1gm IM today Continue clindamycin Recheck tomorrow ICD-9 : 611.0 ICD-10 : N61.0 05/03/2019 Appointment: Josesito Del Rosario WPtel: [address] [place] [address] US FOLLOW UP 05/03/2019 Visit Diagnosis Plan: Cellulitis of right breast Discu ssion: Rocephin 1gm IM now Start clindamycin with a probiotic Recheck tomorrow ICD-9 : 611.0 ICD-10 : N61.0 05/02/2019 Appointment: Josesito Del Rosario WPtel: [address] [place] [address] ACUTE ILLNESS 05/02/2019 Patient Education: clindamycin HCl- [employer] Coupon [id number] [email or web address] Completed 05/02/2019 Care Plan: TRANSVAGINAL US NON-OB LOINC : 79530-0 Pending 10/21/2018 Appointment: Josesito Del Rosario WPtel: [address] [place], [place] [phone] WT CHECK 10/20/2018 Visit Diagnosis Plan: Adverse effect of unspecified drugs, medicaments and biological substances, initial encounter Discussion: DC prilosec Famotodine 20mg po BID Continue zyrtec BID Dexamethasone 4mg IM x1 Call tomorrow on how doing ICD-9 : 995.27 ICD-10 : T50.905A 10/19/2018 Visit Diagnosis Plan: Edema, unspecified Discussion: N o pitting edema or signs of DVT Patient states feels like allergic reaction and did recently start prilosec as well as had herceptin infusion 5 days ago and did receive a lower dose of steroids Will culture urine ICD-9 : 782.3 ICD-10 : R60.9 10/19/2018 Appointment: Josesito Del Rosario WPtel: [address] [place], [place] [phone] 10/19/2018 Appointment: Josesito Del Rosario WPtel: [address] [place], [place] [phone] US Per DR CASEYCELED 08/02/2018 Visit Diagnosis Plan: URI, ACUTE Discussion: CXR negat johnna Lungs clear Only physical exam finding is injection on throat and mild fluid behind ears Will increase zyrtec to BID Throat Culture Notify surgeon of current course ICD-9 : 465.9 ICD-10 : J06.9 07/29/2018 Appointment: Josesito Del Rosario WPtel: [address] [place], [place] [phone] WORK IN 07/29/2018 Visit Diagnosis Plan: Acute pharyngitis, unspecified D iscussion: Strep Negative Cover with Zithromax with upcoming surgery next week but if worsens will let us know and will have to postpone surgery ICD-9 : 462 ICD-10 : J02.9 07/26/2018 Visit NOS Plan: Plan Notes: Supportive care. Rest, Fluids... 07/26/2018 Appointment: Josesito Del Rosario WPtel: [address] [place], [place] [id number] ACUTE ILLNESS 07/26/2018 Visit Diagnosis Plan: Encounter for gyne cological examination (general) (routine) without abnormal findings Discussion: Pap done ICD-9 : V72.31 ICD-10 : Z01.419 07/06/2018 Visit Diagnosis Plan: Other abnormal and inconclusive findings on diagnostic imaging of breast Discussion: Had left breast biopsy Jul 02 ICD-9 : 793.80 ICD-10 : R92.8 07/06/2018 Visit Diagnosis Plan: Encounter for gene ral adult medical examination without abnormal findings Discussion: Lab discussed Mediterranean diet Combo of cardio/weight bearing exercise ICD-9 : V70.0 ICD-10 : Z00.00 07/06/2018 Visit Diagnosis Plan: Menopausal and female climacteri c states Discussion: Stable on fluoxetine ICD-9 : 627.9 ICD-10 : N95.1 07/06/2018 Appointment: Josesito Del Rosario WPtel: [address] [place], [place] [id number] US PAP 07/06/2018 Care Plan: MAMMOGRAM BOTH BREASTS Diagnostic Mammogram of Le ft Breast LOINC : 25130-2 Pending 06/24/2018 Care Plan: US EXAM CHEST Left Breast, if needed LOINC : 2463 0-6 Pending 06/24/2018 Patient Education: Patient Medication Summary Completed 12/16/2017 Care Plan: MAMMOGRAM SCREENING LOINC : 2 6347-5 Pending 12/16/2017 Visit Diagnosis Plan: Encounter for gene ral adult medical examination without abnormal findings Discussion: Check fasting lab ICD-9 : V70.0 ICD-10 : Z00.00 06/30/2017 Visit Diagnosis Plan: Encounter for gyne cological examination (general) (routine) without abnormal findings Discussion: Pap done Mammogram ordered Discussed pelvic floor PT for bowel incontinence ICD-9 : V72.31 ICD-10 : Z01.419 06/30/2017 Appointment: Josesito Del Rosario WPtel[facility] [id number] [place] PAP 06/30/2017 Patient Education: Patient Medication Summary Completed 06/30/2017 Visit Plan: Update fasting lab Pap done Had mammogram Weight bearing exercise 02/04/2016 Appointment: Josesito Del Rosario WPtel: [address] [place] [address] 01/30 confirmed~sl PAP 02/04/2016 Patient Education: Patient Medication Summary Completed 02/04/2016 Appointment: Josesito Del Rosario WPtel: [address] [place] [address] RESCHEDULED 01/17/2016 Patient Education: Patient Medication Summary Completed 12/31/2015 Care Plan: MAMMOGRAM SCREENING LOINC : 2 6347-5 Pending 12/31/2015 Visit Plan: Try to decrease fluoxetine t o 10mg daily Check Mammo Check fasting lab Check Colonoscopy due to family hx of Colon Cancer 12/19/2013 Appointment: Josesito Del Rosario WPtel: [address] [place] [address] 12/16 vm PAP 12/19/2013 Patient Education: Patient Medication Summary Completed 12/19/2013 Visit Plan: Long discussion about HRT--p t has Breast Ca on both sides--Discussed BRCA gene testing in Mom Will try higher dose of fluoxetine 10/27/2012 Appointment: Josesito Del Rosario WPtel: [address] [place] [address] FOLLOW UP 10/27/2012 Patient Education: Patient Medication Summary Completed 10/27/2012 Visit Plan: Lab discussed Add fish oil 3 grams daily Long discussion about hormones Trial of fluoxetine 09/01/2012 Appointment: Josesito Del Rosario WPtel: [address] [place] [address] PAP 09/01/2012 Patient Education: Patient Medication Summary Completed 09/01/2012 Visit Plan: Pap Done and Mammogram order ed Fasting lab ordered 02/03/2011 Appointment: Josesito Del Rosario WPtel: [address] [place] [address] PAP 02/03/2011 Patient Education: Patient Medication Summary Completed 02/03/2011 Visit Plan: Pap done Mammo done last wee k Lab discussed Discussed Bioidentical Hormones 12/25/2009 Appointment: Josesito Del Rosario WPtel: [phone] [id number] PAP 12/25/2009 Patient Education: Patient Medication Summary [...]
--- OUTSIDE RECORDS SUMMARY | 2019-05-15 23:42 | XMS REPORT | CCD ---
Author Author Caridad Del Rosario D.O. Organization JOSESITO DEL ROSARIO DO [facility] Address [address] [place] [address] Phone Care Team Providers Care Butter Fat Tester Name Role Phone PP Unavailable CCM Unavailable Summary Purpose Interface Exchange Insurance Providers Payer name Policy type / Coverage type Covered libertarian ID Effective Begin Date Effective End Date [facility] Commercial Insurance [id number] Un known Family History Family History data [...] Instructions clindamycin HCl 300 mg capsule RxNorm: 777216 1 Capsule (s) Oral three times a day 05/02/2019 05/09/2019 Active fluoxetine 20 mg tablet RxNorm: 824853 1 Tablet(s) Oral QD 03/29/20 19 09/24/2019 Active Zithromax Z-Khoi 250 mg tablet RxNorm: 771599 Tablet(s) Oral as directed 03/25/2019 03/25/2019 Inactive Zithromax Z-Khoi 250 mg tablet RxNorm: 826854 Tablet(s) Oral as directed 03/25/2019 03/24/2019 Inactive famotidine 20 mg tablet RxNorm: 489440 1 Tablet(s) PO BID 10/19/2018 02/15/2019 Inactive Tessalon Perles 100 mg capsule RxNorm: 924788 1 Capsule (s) PO TID as needed for cough 07/26/2018 10/18/2018 Inactive Zithromax 500 mg tablet RxNorm: 031458 1 Tablet(s) PO QD 07/26/2018 0 07/25/2018 Inactive Zithromax 500 mg tablet RxNorm: 120631 1 Tablet(s) PO QD 07/26/2018 0 07/30/2018 Inactive Xanax 0.25 mg tablet RxNorm: 043209 1/2-1 Tablet(s) PO BID 06/01/19 19 No Stop Date Active fluoxetine 20 mg tablet RxNorm: 941914 1 Tablet(s) PO Q D Due for annual appointment in 06/01/2018 02/25/2019 Inactive fluoxetine 20 mg tablet RxNorm: 347740 1 Tablet(s) PO Q D Due for annual in [facility] 06/01/2018 02/25/2019 Inactive fluoxetine 20 mg tablet RxNorm: 497767 1 Tablet(s) PO QD 08/05/2017 1 07/02/2017 Inactive fluoxetine 20 mg tablet RxNorm: 170810 1 Tablet(s) PO QD 08/04/2017 0 08/04/2017 Inactive Xanax 0.25 mg tablet RxNorm: 819619 1/2-1 Tablet(s) PO BID 07/02/19 18 05/31/2018 Inactive fluoxetine 10 mg capsule RxNorm: 378374 2 Capsule(s) PO QAM 018 07/05/2018 Inactive Generic For:PROZAC 10 MG PUL VULE 09/24/2015 10:15:02 AM N O T I C E Last quantity doesn't match original quantity fluoxetine 10 mg capsule RxNorm: 816888 2 Capsule(s) PO QAM Routine wellness due after 02-04-17 12/03/2016 03/02/2017 Inactive Generic For:PROZ AC 10 MG PULVULE 09/24/2015 10:15:02 AM N O T I C E Last quantity doesn't match original quantity Xanax 0.25 mg tablet RxNorm: 887312 1/2-1 Tablet(s) PO BID 02/05/20 16 07/01/2017 Inactive fluoxetine 10 mg capsule RxNorm: 935793 2 Capsule(s) PO QAM 016 07/25/2018 Inactive fluoxetine 10 mg capsule RxNorm: 405268 2 Capsule(s) PO QAM 016 12/03/2016 Inactive Generic For:PROZAC 10 MG PUL VULE 09/24/2015 10:15:02 AM N O T I C E Last quantity doesn't match original quantity fluoxetine 10 mg capsule RxNorm: 447564 2 Capsule(s) PO QAM TAKE 2 CAPSULES BY MOUTH EVERY MORNING 11/16/2015 02/03/2016 Inactive Generic For: PROZAC 10 MG PULVULE 09/24/2015 10:15:02 AM N O T I C E Last quantity doesn't match original quantity fluoxetine 10 mg capsule RxNorm: 930274 2 Capsule(s) PO QAM TAKE 2 CAPSULES BY MOUTH EVERY MORNING 09/24/2015 11/15/2015 Inactive Generic For: PROZAC 10 MG PULVULE 09/24/2015 10:15:02 AM N O T I C E Last quantity doesn't match original quantity fluoxetine 10 mg capsule RxNorm: 925550 2 Capsule(s) PO QAM 015 09/24/2015 Inactive fluoxetine 10 mg capsule RxNorm: 156672 2 Capsule(s) PO QAM 015 07/28/2018 Inactive fluoxetine 10 mg capsule RxNorm: 920504 2 Capsule(s) PO QAM 014 05/21/2014 Inactive Xanax 0.25 mg tablet RxNorm: 157934 1/2-1 Tablet(s) PO BID 04/21/20 13 No Stop Date Active fluoxetine 10 mg capsule RxNorm: 905158 2 Capsule(s) PO QAM 013 01/24/2013 Inactive fluoxetine 10 mg capsule RxNorm: 992244 1 Capsule(s) PO QAM 013 10/26/2012 Inactive Multivitamin & Mineral Formula Tab RxNorm: 1 Tablet(s) PO QD No St art Date Active Zyrtec 10 mg tablet RxNorm: 4525663 1 Tablet(s) PO BID No Start Date Active Prilosec OTC 20 mg tablet,delayed release RxNorm: 568465 1 Tabl et(s) PO QD No Start Date Active Tessalon Perles 100 mg capsule RxNorm: 505906 1 Capsule (s) PO TID as needed for cough No Start Date 07/25/2018 Inactive Biotin Oral RxNorm: Oral No Start Date 10/18/2018 Inactive Zithromax Z-Khoi oral RxNorm: 52647 oral No Start Date 03/24/2019 Inactive Echinacea ACZ oral RxNorm: oral No Start Date 07/28/2018 Inacti ve Vitamin D3 1000 units Capsule RxNorm: 1 Capsule(s) PO QD No St art Date 07/28/2018 Inactive Black Cohosh Oral RxNorm: Oral No Start Date 07/28/2018 Inactiv e Xanax 0.25 mg tablet RxNorm: 416451 1/2-1 Tablet(s) PO BID No Start Date 04/20/2013 Inactive Zyrtec 10 mg tablet RxNorm: 6946485 1 Tablet(s) PO QD as needed No Start Date 10/18/2018 Inactive Vitamin C 1,000 mg tablet RxNorm: 506415 1 Tablet(s) PO QD No Start Date 10/18/2018 Inactive fluoxetine 20 mg tablet RxNorm: 467365 1 Tablet(s) PO QD No Start D ate 08/03/2017 Inactive Medication Administered No Medication Administered data Immunizations Vaccine Codes Date Status Influenza CVX: 141 04/08/2019 Influenza CVX: 141 04/26/2018 Results Observation Observation Code Item Item Code Result Date S ervice Location CULTURE, URINE, ROUTINE 395 CULTURE, URINE, ROUTINE 10/20/2018 [facility] [address] [place] [address] GFR CALC 4861012 GFR Non Afr Amr >60 mL/min 07/05/2018 Un known GFR CALC [id number] GFR Afr Amr >60 mL/min 07/05/2018 Unknow n FREE T4 07601 T4 Free 0.94 ng/dL 07/05/2018 Unknown [facility] 54503 Cholesterol 165 mg/dL 07/05/2018 Unkno wn [facility] 72776 Triglyceride 108 mg/dL 07/05/2018 Unkn own [facility] 10435 HDL CHOLESTEROL 50 mg/dL 07/05/2018 U nknown [facility] 53100 Chol/HDL Ratio 3.30 ratio 07/05/2018 U nknown [facility] 28209 NON-HDL Chol 115 mg/dL 07/05/2018 Unkn own [facility] 16358 LDL Cholesterol 93 mg/dL 07/05/2018 U nknown THYROID STIMULATING HORMONE 63883 TSH 0.937 uIU/mL 07/05/2018 Unknown COMPREHENSIVE METABOLIC 76279 AST 19 U/L 2018 Unknown COMPREHENSIVE METABOLIC 04863 ALT 21 U/L 2018 Unknown COMPREHENSIVE METABOLIC 14853 BUN 10 mg/dL 2018 Unknown COMPREHENSIVE METABOLIC 65096 ALBUMIN 4.3 g/dL 2018 Unknown COMPREHENSIVE METABOLIC 22771 CHLORIDE 106 mmol/L 07/05 Unknown COMPREHENSIVE METABOLIC 65226 Bili Total 0.3 mg/dL 07/05 Unknown COMPREHENSIVE METABOLIC 61076 ALK PHOS 59 U/L 2018 Unknown COMPREHENSIVE METABOLIC 79810 SODIUM 140 mmol/L 07/05 Unknown COMPREHENSIVE METABOLIC 70078 CREATININE 0.68 mg/dL 06/18 Unknown COMPREHENSIVE METABOLIC 94970 CALCIUM 9.2 mg/dL 2018 Unknown COMPREHENSIVE METABOLIC 71761 POTASSIUM 4.0 mmol/L 07/05 Unknown COMPREHENSIVE METABOLIC 42829 Total Protein 7.1 g/dL Unknown COMPREHENSIVE METABOLIC 47175 Glucose 84 mg/dL 2018 Unknown COMPREHENSIVE METABOLIC 23972 Bicarbonate 27 mmol/L 06/18 Unknown COMPREHENSIVE METABOLIC 34594 AGAP 7 mmol/L 2018 Unknown COMPLETE BLOOD COUNT 4532173 WBC 6.0 10e9/L 07/05/19 19 Unknown COMPLETE BLOOD COUNT [id number] RBC 4.36 10e12/L 2018 Unknown COMPLETE BLOOD COUNT 5440292 HEMOGLOBIN 12.9 g/dL 07/05/19 19 Unknown COMPLETE BLOOD COUNT 7959492 HEMATOCRIT 39.1 % 07/05/19 19 Unknown COMPLETE BLOOD COUNT 0659811 MCV 89.7 fL 9 Unknown COMPLETE BLOOD COUNT 9004180 MCH 29.6 pg 9 Unknown COMPLETE BLOOD COUNT 8135150 MCHC 33.0 g/dL 9 Unknown COMPLETE BLOOD COUNT 2587551 PLATELET COUNT 270 10e9/L Unknown COMPLETE BLOOD COUNT 9805460 Mean Plt Volume 9.0 fL Unknown COMPLETE BLOOD COUNT 9070793 Neut Auto 53.8 % 9 Unknown COMPLETE BLOOD COUNT 8235576 Lymph Auto 35.8 % 07/05/19 19 Unknown COMPLETE BLOOD COUNT 2273208 [place] Auto 7.9 % 9 Unknown COMPLETE BLOOD COUNT 2247774 RDW 13.9 % 9 Unknown COMPLETE BLOOD COUNT 6280315 Eos Auto 2.0 % 9 Unknown COMPLETE BLOOD COUNT 6717541 Baso Auto 0.5 % 9 Unknown COMPLETE BLOOD COUNT 5982742 Neutrophil Abs 3.23 10e9/L Unknown COMPLETE BLOOD COUNT 4065088 Lymphocyte Abs 2.15 10e9/L Unknown COMPLETE BLOOD COUNT 3354196 Monocyte Abs 0.47 10e9/L 06/18 Unknown COMPLETE BLOOD COUNT 7953570 Eosinophil Abs 0.12 10e9/L Unknown COMPLETE BLOOD COUNT 7606582 RDW-SD 44.5 fL 9 Unknown COMPLETE BLOOD COUNT [id number] Basophil Abs 0.03 10e9/L 06/18 Unknown FREE T4 60523 T4 Free 1.21 ng/dL 06/30/2017 Unknown GFR CALC 5851720 GFR Non Afr Amr >60 mL/min 06/30/2017 Un known GFR CALC 7068852 GFR Afr Amr >60 mL/min 06/30/2017 Unknow n THYROID STIMULATING HORMONE 16154 TSH 0.873 uIU/mL 06/30/2017 Unknown [facility] 62127 Cholesterol 175 mg/dL 06/30/2017 Unkno wn [facility] 65719 Triglyceride 129 mg/dL 06/30/2017 Unkn own [facility] 92426 HDL CHOLESTEROL 51 06/30/2017 U nknown [facility] 11421 Chol/HDL Ratio 3.43 ratio 06/30/2017 U nknown [facility] 02088 NON-HDL Chol 124 mg/dL 06/30/2017 Unkn own [facility] 57544 LDL Cholesterol 98 mg/dL 06/30/2017 U nknown COMPLETE BLOOD COUNT 2268904 WBC 6.2 10e9/L 06/30/19 18 Unknown COMPLETE BLOOD COUNT 8205598 RBC 4.58 10e12/L 2017 Unknown COMPLETE BLOOD COUNT 7040237 HEMOGLOBIN 13.3 g/dL 06/30/19 18 Unknown COMPLETE BLOOD COUNT 9996013 HEMATOCRIT 41.6 % 06/30/19 18 Unknown COMPLETE BLOOD COUNT 0772138 MCV 90.8 fL 8 Unknown COMPLETE BLOOD COUNT 5792595 MCH 29.0 pg 8 Unknown COMPLETE BLOOD COUNT 4744979 MCHC 32.0 g/dL 8 Unknown COMPLETE BLOOD COUNT 7659328 PLATELET COUNT 271 10e9/L Unknown COMPLETE BLOOD COUNT 8238344 Mean Plt Volume 8.9 fL Unknown COMPLETE BLOOD COUNT 5503130 Neut Auto 53.5 % 8 Unknown COMPLETE BLOOD COUNT 5679619 Lymph Auto 36.4 % 06/30/19 18 Unknown COMPLETE BLOOD COUNT 7556556 [place] Auto 8.1 % 8 Unknown COMPLETE BLOOD COUNT 0048754 RDW 13.4 % 8 Unknown COMPLETE BLOOD COUNT 4489053 Eos Auto 1.5 % 8 Unknown COMPLETE BLOOD COUNT 2555483 Baso Auto 0.5 % 8 Unknown COMPLETE BLOOD COUNT 0620799 Neutrophil Abs 3.32 10e9/L Unknown COMPLETE BLOOD COUNT 2731468 Lymphocyte Abs 2.26 10e9/L Unknown COMPLETE BLOOD COUNT 8213900 Monocyte Abs 0.50 10e9/L 06/18 Unknown COMPLETE BLOOD COUNT 8050006 Eosinophil Abs 0.09 10e9/L Unknown COMPLETE BLOOD COUNT 5524852 RDW-SD 43.9 fL 8 Unknown COMPLETE BLOOD COUNT 3557846 Basophil Abs 0.03 10e9/L 06/18 Unknown COMPREHENSIVE METABOLIC 84294 AST 19 U/L 2017 Unknown COMPREHENSIVE METABOLIC 36762 ALT 22 U/L 2017 Unknown COMPREHENSIVE METABOLIC 38518 BUN 12 mg/dL 2017 Unknown COMPREHENSIVE METABOLIC 21108 ALBUMIN 4.9 g/dL 2017 Unknown COMPREHENSIVE METABOLIC 27420 CHLORIDE 106 mmol/L 06/30 Unknown COMPREHENSIVE METABOLIC 07909 Bili Total 0.4 mg/dL 06/30 Unknown COMPREHENSIVE METABOLIC 07776 ALK PHOS 66 U/L 2017 Unknown COMPREHENSIVE METABOLIC 93982 SODIUM 143 mmol/L 06/30 Unknown COMPREHENSIVE METABOLIC 42969 CREATININE 0.71 mg/dL 06/18 Unknown COMPREHENSIVE METABOLIC 91918 CALCIUM 9.9 mg/dL 2017 Unknown COMPREHENSIVE METABOLIC 68625 POTASSIUM 4.1 mmol/L 06/30 Unknown COMPREHENSIVE METABOLIC 00514 Total Protein 8.0 g/dL Unknown COMPREHENSIVE METABOLIC 55715 Glucose 87 mg/dL 2017 Unknown COMPREHENSIVE METABOLIC 87783 Bicarbonate 27 mmol/L 06/18 Unknown COMPREHENSIVE METABOLIC 84140 AGAP 10 mmol/L 2017 Unknown GFR CALC 1296322 GFR AA >60 ML/MIN 12/19/2013 Unknown GFR CALC 7360130 GFR NON-AA >60 ML/MIN 12/19/2013 Unknown [facility] GROUP 21762 HDL TEST 52 MG/DL 12/19/2013 Unknown [facility] 60640 TRIG 96 MG/DL 12/19/2013 Unknown [facility] 27337 TEST LDL 98 MG/DL 12/19/2013 Unknown [facility] 57728 CHOL 169 MG/DL 12/19/2013 Unknown [facility] GROUP 74826 RCHOL/HDL 3.25 RATIO 12/19/2013 Unknow n LIP[facility] GROUP 84133 NON-HDL CH 117 MG/DL 12/19/2013 Unknow n COMPLETE BLOOD COUNT 5033238 WBC 5.6 10e9/L 12/20/19 14 Unknown COMPLETE BLOOD COUNT 3135743 RBC 4.45 10e12/L 2013 Unknown COMPLETE BLOOD COUNT 3612248 HGB 13.0 g/dL 4 Unknown COMPLETE BLOOD COUNT 0273000 HCT DET 39.9 % 4 Unknown COMPLETE BLOOD COUNT 0843139 MCV 89.7 fL 4 Unknown COMPLETE BLOOD COUNT 3803210 MCH 29.2 pg 4 Unknown COMPLETE BLOOD COUNT 5449549 MCHC 32.6 g/dL 4 Unknown COMPLETE BLOOD COUNT 2300616 PLT 244 10e9/L 12/20/19 14 Unknown COMPLETE BLOOD COUNT 8007494 MPV 9.4 fL 4 Unknown COMPLETE BLOOD COUNT 7506944 PABLITO % 58.5 % 4 Unknown COMPLETE BLOOD COUNT 8876958 LY % 30.8 % 4 Unknown COMPLETE BLOOD COUNT 2466174 MON % 8.2 % 4 Unknown COMPLETE BLOOD COUNT 7788225 EOS % 2.0 % 4 Unknown COMPLETE BLOOD COUNT 8667779 BASO % 0.5 % 4 Unknown COMPLETE BLOOD COUNT 4105721 RDW 13.6 % 4 Unknown COMPLETE BLOOD COUNT 1686698 ABS PABLITO 3.28 10e9/L 014 Unknown COMPLETE BLOOD COUNT 6846873 ABS LYMPH 1.72 10e9/L 014 Unknown COMPLETE BLOOD COUNT 8372569 ABS MONO 0.46 10e9/L 014 Unknown COMPLETE BLOOD COUNT 9853789 ABS EOS 0.11 10e9/L 014 Unknown COMPLETE BLOOD COUNT 0340460 ABS BASO 0.03 10e9/L 014 Unknown COMPLETE BLOOD COUNT 0542795 RDW-SD 43.6 fL 4 Unknown FREE T4 89022 FREE T4 1.26 NG/DL 12/19/2013 Unknown COMPREHENSIVE METABOLIC 40556 AST 18 U/L 2013 Unknown COMPREHENSIVE METABOLIC 19643 ALT 22 IU/L 2013 Unknown COMPREHENSIVE METABOLIC 80871 BUN 11 MG/DL 2013 Unknown COMPREHENSIVE METABOLIC 78277 ALBUMIN 4.7 GM/DL 2013 Unknown COMPREHENSIVE METABOLIC 27138 CHLORIDE 108 MMOL/L 12/19 Unknown COMPREHENSIVE METABOLIC 50491 BILI TOT 0.3 MG/DL 2013 Unknown COMPREHENSIVE METABOLIC 86066 ALK PHOS 67 U/L 2013 Unknown COMPREHENSIVE METABOLIC 61316 SODIUM 141 MMOL/L 12/19 Unknown COMPREHENSIVE METABOLIC 22844 CREATININE 0.67 MG/DL 08/2013 Unknown COMPREHENSIVE METABOLIC 47836 CALCIUM 9.4 MG/DL 2013 Unknown COMPREHENSIVE METABOLIC 31825 POTASSIUM 4.1 MMOL/L 12/19 Unknown COMPREHENSIVE METABOLIC 30613 PROT TOT 7.0 GM/DL 2013 Unknown COMPREHENSIVE METABOLIC 84213 Glucose 94 MG/DL 2013 Unknown COMPREHENSIVE METABOLIC 26688 BICARB 27 MMOL/L 2013 Unknown COMPREHENSIVE METABOLIC 37505 ANION GAP 6 MEQ/L 2013 Unknown THYROID STIMULATING HORMONE 13908 TSH 0.547 uIU/ML 12/19/2013 Unknown GFR CALC 6087240 GFR AA >60 ML/MIN 02/03/2011 Unknown GFR CALC 7200113 GFR NON-AA >60 ML/MIN 02/03/2011 Unknown THYROID STIMULATING HORMONE 54034 TSH 0.818 uIU/ML 02/03/2011 Unknown COMPLETE BLOOD COUNT 86134 WBC 7.7 10e9/L 02/04/20 11 Unknown COMPLETE BLOOD COUNT 74784 RBC 4.23 10e12/L 2010 Unknown COMPLETE BLOOD COUNT 18795 HGB 11.9 g/dL 1 Unknown COMPLETE BLOOD COUNT 86756 HCT DET 36.5 % 1 Unknown COMPLETE BLOOD COUNT 09515 MCV 86.3 fL 1 Unknown COMPLETE BLOOD COUNT 35292 MCH 28.1 pg 1 Unknown COMPLETE BLOOD COUNT 27565 MCHC 32.6 g/dL 1 Unknown COMPLETE BLOOD COUNT 61291 PLT 244 10e9/L 02/04/20 11 Unknown COMPLETE BLOOD COUNT 18669 MPV 8.7 fL 1 Unknown COMPLETE BLOOD COUNT 98342 PABLITO % 58.9 % 1 Unknown COMPLETE BLOOD COUNT 79662 LY % 31.1 % 1 Unknown COMPLETE BLOOD COUNT 85217 MON % 7.9 % 1 Unknown COMPLETE BLOOD COUNT 27840 EOS % 1.8 % 1 Unknown COMPLETE BLOOD COUNT 91612 BASO % 0.3 % 1 Unknown COMPLETE BLOOD COUNT 15403 RDW 14.7 % 1 Unknown COMPLETE BLOOD COUNT 31657 ABS PABLITO 4.54 10e9/L 011 Unknown COMPLETE BLOOD COUNT 06957 ABS LYMPH 2.39 10e9/L 011 Unknown COMPLETE BLOOD COUNT 19707 ABS MONO 0.61 10e9/L 011 Unknown COMPLETE BLOOD COUNT 72916 ABS EOS 0.14 10e9/L 011 Unknown COMPLETE BLOOD COUNT 22315 ABS BASO 0.02 10e9/L 011 Unknown COMPLETE BLOOD COUNT 92722 RDW-SD 45.1 fL 1 Unknown COMPREHENSIVE METABOLIC 58537 AST 16 U/L 2010 Unknown COMPREHENSIVE METABOLIC 99519 ALT 21 IU/L 2010 Unknown COMPREHENSIVE METABOLIC 22453 BUN 9 MG/DL 2010 Unknown COMPREHENSIVE METABOLIC 94315 ALBUMIN 4.5 GM/DL 2010 Unknown COMPREHENSIVE METABOLIC 30445 CHLORIDE 104 MMOL/L 02/03 Unknown COMPREHENSIVE METABOLIC 37921 BILI TOT 0.2 MG/DL 2010 Unknown COMPREHENSIVE METABOLIC 18145 ALK PHOS 65 U/L 2010 Unknown COMPREHENSIVE METABOLIC 37729 SODIUM 137 MMOL/L 02/03 Unknown COMPREHENSIVE METABOLIC 35356 CREATININE 0.64 MG/DL 01/16 Unknown COMPREHENSIVE METABOLIC 14775 CALCIUM 8.8 MG/DL 2010 Unknown COMPREHENSIVE METABOLIC 74595 POTASSIUM 3.8 MMOL/L 02/03 Unknown COMPREHENSIVE METABOLIC 82896 PROT TOT 6.7 GM/DL 2010 Unknown COMPREHENSIVE METABOLIC 76415 Glucose 88 MG/DL 2010 Unknown COMPREHENSIVE METABOLIC 53053 BICARB 26 MMOL/L 2010 Unknown COMPREHENSIVE METABOLIC 35950 ANION GAP 7 MEQ/L 2010 Unknown FREE T4 21925 FREE T4 1.24 NG/DL 02/03/2011 Unknown Procedures Procedure Codes Date CEFTRIAXONE SODIUM INJECTION CPT-4: J0696 05/04/2019 THER/PROPH/DIAG INJ SC/IM CPT-4: 03866 05/04/2019 CEFTRIAXONE SODIUM INJECTION CPT-4: J0696 05/03/2019 THER/PROPH/DIAG INJ SC/IM CPT-4: 57540 05/03/2019 CEFTRIAXONE SODIUM INJECTION CPT-4: J0696 05/02/2019 THER/PROPH/DIAG INJ SC/IM CPT-4: 99083 05/02/2019 DEXAMETHASONE SODIUM PHOS CPT-4: J1100 10/19/2018 THER/PROPH/DIAG INJ SC/IM CPT-4: 50158 10/19/2018 URINE CULTURE/ COLONY COUNT CPT-4: 73551 10/19/2018 URINALYSIS NONAUTO W/O SCOPE CPT-4: 89638 10/19/2018 THROAT CULTURE CPT-4: 63851 07/29/2018 STREP A ASSAY W/OPTIC CPT-4: 39622 07/26/2018 SPECIMEN HANDLING OFFICE-LAB CPT-4: 20494 07/06/2018 OCCULT BLOOD FECES CPT-4: 50862 07/06/2018 ROUTINE VENIPUNCTURE CPT-4: 92330 12/19/2013 ASSAY OF FREE THYROXINE CPT-4: 99030 12/19/2013 ASSAY THYROID STIM HORMONE CPT-4: 08663 12/19/2013 COMPREHEN METABOLIC PANEL CPT-4: 75584 12/19/2013 COMPLETE CBC W/AUTO DIFF WBC CPT-4: 59077 12/19/2013 LIPID PANEL CPT-4: 04170 12/19/2013 OCCULT BLOOD FECES CPT-4: 40236 02/03/2011 SPECIMEN HANDLING OFFICE-LAB CPT-4: 51190 12/25/2009 OCCULT BLOOD FECES CPT-4: 70396 12/25/2009 Vital Signs Date Vital 05/04/2019 Blood Pressure 1: 128/68 Code: 8480-6 [...] 1: 130/78 Code: 8480-6 BMI: 30.7 Code: 18470-2 Heart Rate 1: 76 bpm Height: 5'9" Respiratory Rate: 20 bpm Temperature: 36 .8 (C) / 98.3 (F) Weight: 208 lbs 06/30/2017 Blood Pressure 1: 126/80 Code: 8480-6 BMI: 30.9 Code: 87485-6 Heart Rate 1: 72 bpm Height: 5'9" Respiratory Rate: 20 bpm Temperature: 36 .7 (C) / 98.0 (F) Weight: 209 lbs 02/04/2016 Blood Pressure 1: 122/80 Code: 8480-6 BMI: 31.3 Code: 77041-4 Heart Rate 1: 80 bpm Height: 5'9" Respiratory Rate: 20 bpm Temperature: 36 .6 (C) / 97.8 (F) Weight: 212 lbs 12/19/2013 Blood Pressure 1: 116/78 Code: 8480-6 BMI: 30.1 Code: 82674-1 Heart Rate 1: 76 bpm Height: 5'9" Respiratory Rate: 20 bpm Temperature: 36 .8 (C) / 98.3 (F) Weight: 204 lbs 10/27/2012 Blood Pressure 1: 114/70 Code: 8480-6 BMI: 30.3 Code: 94448-2 Heart Rate 1: 68 bpm Height: 5'9" Respiratory Rate: 20 bpm Temperature: 36 .8 (C) / 98.3 (F) Weight: 205 lbs 09/01/2012 Blood Pressure 1: 118/82 Code: 8480-6 BMI: 30.9 Code: 44074-1 Heart Rate 1: 80 bpm Height: 5'9" Respiratory Rate: 20 bpm Temperature: 36 .8 (C) / 98.2 (F) Weight: 209 lbs 02/03/2011 Blood Pressure 1: 118/76 Code: 8480-6 BMI: 29.5 Code: 51098-5 Heart Rate 1: 72 bpm Height: 5'9" Weight: 200 lbs 12/25/2009 Blood Pressure 1: 122/76 Code: 8480-6 BMI: 29.5 Code: 96780-0 Heart Rate 1: 80 bpm Height: 5'9" Temperature: 36.8 (C) / 98.3 (F) Weight: 200 lbs Functional Status No Functional Status data Reason For Visit Reason For Visit Effective Dates Notes follow up 05/04/2019 follow up 05/03/2019 cellulitis [...] 11/24 Encounters Encounter Performer Location Codes Date ([id number]) OFFICE/OUTPATIENT VISIT EST Diagnosis: Cellulitis of right breast[ICD10: N61.0] Josesito DEL ROSARIO DO [facility] CPT-4: 58287 05/04/2019 ([id number]) OFFICE/OUTPATIENT VISIT EST Diagnosis: Cellulitis of right breast[ICD10: N61.0] Josesito DEL ROSARIO DO [employer] CPT-4: 26023 05/03/2019 ([id number]) OFFICE/OUTPATIENT VISIT EST Diagnosis: Cellulitis of right breast[ICD10: N61.0] Josesito DEL ROSARIO DO [employer] CPT-4: 97452 05/02/2019 ([id number]) OFFICE/OUTPATIENT VISIT EST Diagnosis: Edema, unspecified[ICD10: R60.9] Diagnosis: Adverse effect of unspecified drugs, medicaments and biological substances, initial encounter[ICD10: T50.905A] Diagnosis: Gross hematuria[ICD10: R31.0] Josesito DEL ROSARIO DO [employer] CPT-4: 42532 10/19/2018 ([id number]) OFFICE/OUTPATIENT VISIT EST Diagnosis: URI, ACUTE[ICD10: J06.9] Josesito SHIELDS [employer] CPT-4: 98401 07/29/2018 ([id number]) OFFICE/OUTPATIENT VISIT EST Diagnosis: Acute pharyngitis, unspecified[ICD10: J02.9] Diagnosis: URI, ACUTE[ICD10: J06.9] Josesito SHIELDS [employer] CPT-4: 59859 07/26/2018 ([id number]) PREV VISIT EST AGE 40-64 Diagnosis: Encounter for general adult medical examination without abnormal findings[ICD10: Z00.00] Diagnosis: Encounter for gynecological examination (general) (routine) without abnormal findings[ICD10: Z01.419] Diagnosis: Menopausal and female climacteric states[ICD10: N95.1] Diagnosis: Other abnormal and inconclusive findings on diagnostic imaging of breast[ICD10: R92.8] Josesito DEL ROSARIO DO [employer] CPT-4: 05705 07/06/2018 ([id number]) PREV VISIT EST AGE 40-64 Diagnosis: Encounter for general adult medical examination without abnormal findings[ICD10: Z00.00] Diagnosis: Encounter for gynecological examination (general) (routine) without abnormal findings[ICD10: Z01.419] Josesito Lund DO [employer] CPT-4: 02331 06/30/2017 ([id number]) PREV VISIT EST AGE 40-64 Diagnosis: Encounter for general adult medical examination without abnormal findings[ICD10: Z00.00] Josesito DEL ROSARIO DO [employer] CPT-4: 20923 02/04/2016 ([id number]) PREV VISIT EST AGE 40-64 Diagnosis: ROUTINE MEDICAL EXAM[ICD9: V70.0] Diagnosis: MENOPAUSAL DISORDER[ICD9: 627.9] Josesito DEL ROSARIO DO [employer] CPT-4: 21185 12/19/2013 OFFICE/OUTPATIENT VISIT EST Diagnosis: MENOPAUSAL DISORDER[ICD9: 627.9] Josesito DEL ROSARIO DO [employer] CPT-4: 02790 10/27/2012 ([id number]) PREV VISIT EST AGE 40-64 Diagnosis: ROUTINE MEDICAL EXAM[ICD9: V70.0] Diagnosis: MENOPAUSAL DISORDER[ICD9: 627.9] Josesito DEL ROSARIO DO [employer] CPT-4: 48866 09/01/2012 PREV VISIT EST AGE 40-64 Diagnosis: ROUTINE GYNE EXAM[ICD9: V72.31] Diagnosis: ROUTINE MEDICAL EXAM[ICD9: V70.0] Josesito DEL ROSARIO DO [employer] CPT-4: 33372 02/03/2011 SPECIMEN HANDLING Diagnosis: [ICD9: ] Diagnosis: [ICD9: ] Josesito DEL ROSARIO DO [employer] CPT-4: 9900 0 02/03/2011 ([id number]) PREV VISIT, EST, AGE 40-64 Josesito MARQUEZNE Scotty DEL ROSARIO DO [employer] CPT-4: 43590 12/25/2009 Plan of Care Planned Activity Notes Codes Status Date Visit Diagnosis Plan: Cellulitis of right breast Discu ssion: Repeat rocephin 1gm IM Continue clindamycin Recheck tomorrow ICD-9 : 611.0 ICD-10 : N61.0 05/04/2019 Visit Diagnosis Plan: Cellulitis of right breast Discu ssion: Repeat Rocephin 1gm IM today Continue clindamycin Recheck tomorrow ICD-9 : 611.0 ICD-10 : N61.0 05/03/2019 Appointment[facility]ito Del [facility]otel[facility] [id number] [id number] FO[facility] UP 05/03/2019 Visit Diagnosis Plan: Cellulitis of right breast Discu ssion: Rocephin 1gm IM now Start clindamycin with a probiotic Recheck tomorrow ICD-9 : 611.0 ICD-10 : N61.0 05/02/2019 Appointment: Josesito Del Rosariotel: [id number] AC[facility] ILL[facility] 05/02/2019 Patient Education: clindamycin HCl- [employer] Coupon [id number] [email or web address] Completed 05/02/2019 Care Plan: TRANSVAGINAL US NON-OB LOINC : 34244-6 Pending 10/21/2018 Appointment: Josesito Del Rosario WPtel: [id number] [facility] WT CHECK 10/20/2018 Visit Diagnosis Plan: Adverse [...] R60.9 10/19/2018 Appointment: Josesito Del Rosario WPtel: [address] [place], [place] [id number] 10/19/2018 Appointment: Josesito Del Rosario WPtel: [address] [place], [place] [phone] Per CANCELED 08/02/2018 Visit Diagnosis Plan: URI, ACUTE Discussion: CXR negat johnna Lungs clear Only physical exam finding is injection on throat and mild fluid behind ears Will increase zyrtec to BID Throat Culture Notify surgeon of current course ICD-9 : 465.9 ICD-10 : J06.9 07/29/2018 Appointment: Josesito Del Rosario WPtel: [address] [place], [place] [phone] WORK IN 07/29/2018 Visit Diagnosis Plan: Acute pharyngitis, unspecified D iscussion: Strep Negative Cover with Zithromax with upcoming surgery next week but if worsens will let us know and will have to postpone surgery ICD-9 : 462 ICD-10 : J02.9 07/26/2018 Visit NOS Plan: Plan Notes: Supportive care. Rest, Fluids... 07/26/2018 Appointment: Josesito Del Rosario WPtel: [address] [place], [place] [phone] ACUTE ILLNESS 07/26/2018 Visit Diagnosis Plan: Encounter for gyne cological examination (general) (routine) without abnormal findings Discussion: Pap done ICD-9 : V72.31 ICD-10 : Z01.419 07/06/2018 Visit Diagnosis Plan: Other abnormal and inconclusive findings on diagnostic imaging of breast Discussion: Had left breast biopsy Isabelle y, Jul 02 ICD-9 : 793.80 ICD-10 : R92.8 07/06/2018 Visit Diagnosis Plan: Encounter for gene ral adult medical examination without abnormal findings Discussion: Lab discussed Mediterranean diet Combo of cardio/weight bearing exercise ICD-9 : V70.0 ICD-10 : Z00.00 07/06/2018 Visit Diagnosis Plan: Menopausal and female climacteri c states Discussion: Stable on fluoxetine ICD-9 : 627.9 ICD-10 : N95.1 07/06/2018 Appointment: oJsesito Del Rosario WPtel: [address] [place] [address] US PAP 07/06/2018 Care Plan: MAMMOGRAM BOTH BREASTS Diagnostic Mammogram of [place] ft Breast LOINC : 61598-3 Pending 06/24/2018 Care Plan: US EXAM CHEST [...] Z01.419 06/30/2017 Appointment: Josesito Del Rosario WPtel: [address] [place] [address] US PAP 06/30/2017 Patient Education: Patient Medication Summary Completed 06/30/2017 Visit Plan: Update fasting lab Pap done Had mammogram Weight bearing exercise 02/04/2016 Appointment: Josesito Del Rosario WPtel: [address] [place] [address] US 01/30 confirmed~sl PAP 02/04/2016 Patient Education: Patient Medication Summary Completed 02/04/2016 Appointment: Josesito Del Rsoario WPtel: [address] [place] [address] US RESCHEDULED 01/17/2016 Patient Education: Patient Medication Summary Completed 12/31/2015 Care Plan: MAMMOGRAM SCREENING LOINC : 2 6347-5 Pending 12/31/2015 Visit Plan: Try to decrease fluoxetine t o 10mg daily Check Mammo Check fasting lab Check Colonoscopy due to family hx of Colon Cancer 12/19/2013 Appointment: Josesito Del Rosario WPtel: [address] [place], [place] [phone] 12/16 PAP 12/19/2013 Patient Education: Patient Medication Summary Completed 12/19/2013 Visit Plan: Long discussion about HRT--p t has Breast Ca on both sides--Discussed BRCA gene testing in Mom Will try higher dose of fluoxetine 10/27/2012 Appointment: Josesito Del Rosario WPtel: [address] [place], [place] [phone] FOLLOW UP 10/27/2012 Patient Education: Patient Medication Summary Completed 10/27/2012 Visit Plan: Lab discussed Add fish oil 3 grams daily Long discussion about hormones Trial of fluoxetine 09/01/2012 Appointment: Josesito Del Rosario WPtel: [address] [place], [place] [phone] PAP 09/01/2012 Patient Education: Patient Medication Summary Completed 09/01/2012 Visit Plan: Pap Done and Mammogram order ed Fasting lab ordered 02/03/2011 Appointment: Josesito Del Rosario WPtel: [address] [place], [place] [phone] [place] PAP 02/03/2011 Patient Education: Patient Medication Summary Completed 02/03/2011 Visit Plan: Pap done Mammo done last wee k Lab discussed Discussed Bioidentical Hormones 12/25/2009 Appointment: Josesito Del Rosario WPtel: [address] [place], [place] [phone] PAP 12/25/2009 Patient Education: Patient Medication Summary Completed 12/25/2009 Instructions Comment . Update fasting lab Pap done Had mammogram Weight bearing exercise . Try to decrease fluoxetine to 10mg kobe ly Check Mammo Check fasting lab Check Colonoscopy due to family hx of Colon Cancer . Long discussion about HRT--pt has Ter[facility] st Ca on both sides--Discussed BRCA gene [...]
--- OUTSIDE RECORDS SUMMARY | 2019-05-15 23:42 | XMS REPORT | CCD ---
Author Author Caridad Del Rosario D.O. Organization JOSESITO DEL ROSARIO DO [facility] Address [address] [place] [address] Phone Care Team Providers Care Social Media Strategist Name Role Phone PP Unavailable CCM Unavailable Summary Purpose Interface Exchange Insurance Providers Payer name Policy type / Coverage type Covered alliance party ID Effective Begin Date Effective End Date [facility] Commercial Insurance [id number] Un known Family History Family History data [...] Instructions clindamycin HCl 300 mg capsule RxNorm: 145367 1 Capsule (s) Oral three times a day 05/02/2019 05/09/2019 Active fluoxetine 20 mg tablet RxNorm: 193941 1 Tablet(s) Oral QD 03/29/20 19 09/24/2019 Active Zithromax Z-Khoi 250 mg tablet RxNorm: 303925 Tablet(s) Oral as directed 03/25/2019 03/25/2019 Inactive Zithromax Z-Khoi 250 mg tablet RxNorm: 103221 Tablet(s) Oral as directed 03/25/2019 03/24/2019 Inactive famotidine 20 mg tablet RxNorm: 171507 1 Tablet(s) PO BID 10/19/2018 02/15/2019 Inactive Tessalon Perles 100 mg capsule RxNorm: 302780 1 Capsule (s) PO TID as needed for cough 07/26/2018 10/18/2018 Inactive Zithromax 500 mg tablet RxNorm: 747301 1 Tablet(s) PO QD 07/26/2018 0 07/25/2018 Inactive Zithromax 500 mg tablet RxNorm: 157147 1 Tablet(s) PO QD 07/26/2018 0 07/30/2018 Inactive Xanax 0.25 mg tablet RxNorm: 553612 1/2-1 Tablet(s) PO BID 06/01/19 19 No Stop Date Active fluoxetine 20 mg tablet RxNorm: 249546 1 Tablet(s) PO Q D Due for annual appointment in 06/01/2018 02/25/2019 Inactive fluoxetine 20 mg tablet RxNorm: 224739 1 Tablet(s) PO Q D Due for annual in [facility] 06/01/2018 02/25/2019 Inactive fluoxetine 20 mg tablet RxNorm: 916661 1 Tablet(s) PO QD 08/05/2017 1 07/02/2017 Inactive fluoxetine 20 mg tablet RxNorm: 753676 1 Tablet(s) PO QD 08/04/2017 0 08/04/2017 Inactive Xanax 0.25 mg tablet RxNorm: 640175 1/2-1 Tablet(s) PO BID 07/02/19 18 05/31/2018 Inactive fluoxetine 10 mg capsule RxNorm: 594064 2 Capsule(s) PO QAM 018 07/05/2018 Inactive Generic For:PROZAC 10 MG PUL VULE 09/24/2015 10:15:02 AM N O T I C E Last quantity doesn't match original quantity fluoxetine 10 mg capsule RxNorm: 697832 2 Capsule(s) PO QAM Routine wellness due after 02-04-17 12/03/2016 03/02/2017 Inactive Generic For:PROZ AC 10 MG PULVULE 09/24/2015 10:15:02 AM N O T I C E Last quantity doesn't match original quantity Xanax 0.25 mg tablet RxNorm: 277852 1/2-1 Tablet(s) PO BID 02/05/20 16 07/01/2017 Inactive fluoxetine 10 mg capsule RxNorm: 479179 2 Capsule(s) PO QAM 016 07/25/2018 Inactive fluoxetine 10 mg capsule RxNorm: 244818 2 Capsule(s) PO QAM 016 12/03/2016 Inactive Generic For:PROZAC 10 MG PUL VULE 09/24/2015 10:15:02 AM N O T I C E Last quantity doesn't match original quantity fluoxetine 10 mg capsule RxNorm: 320814 2 Capsule(s) PO QAM TAKE 2 CAPSULES BY MOUTH EVERY MORNING 11/16/2015 02/03/2016 Inactive Generic For: PROZAC 10 MG PULVULE 09/24/2015 10:15:02 AM N O T I C E Last quantity doesn't match original quantity fluoxetine 10 mg capsule RxNorm: 487601 2 Capsule(s) PO QAM TAKE 2 CAPSULES BY MOUTH EVERY MORNING 09/24/2015 11/15/2015 Inactive Generic For: PROZAC 10 MG PULVULE 09/24/2015 10:15:02 AM N O T I C E Last quantity doesn't match original quantity fluoxetine 10 mg capsule RxNorm: 829145 2 Capsule(s) PO QAM 015 09/24/2015 Inactive fluoxetine 10 mg capsule RxNorm: 719150 2 Capsule(s) PO QAM 015 07/28/2018 Inactive fluoxetine 10 mg capsule RxNorm: 275349 2 Capsule(s) PO QAM 014 05/21/2014 Inactive Xanax 0.25 mg tablet RxNorm: 621382 1/2-1 Tablet(s) PO BID 04/21/20 13 No Stop Date Active fluoxetine 10 mg capsule RxNorm: 515241 2 Capsule(s) PO QAM 013 01/24/2013 Inactive fluoxetine 10 mg capsule RxNorm: 808609 1 Capsule(s) PO QAM 013 10/26/2012 Inactive Multivitamin & Mineral Formula Tab RxNorm: 1 Tablet(s) PO QD No St art Date Active Zyrtec 10 mg tablet RxNorm: 2393031 1 Tablet(s) PO BID No Start Date Active Prilosec OTC 20 mg tablet,delayed release RxNorm: 439479 1 Tabl et(s) PO QD No Start Date Active Tessalon Perles 100 mg capsule RxNorm: 978803 1 Capsule (s) PO TID as needed for cough No Start Date 07/25/2018 Inactive Biotin Oral RxNorm: Oral No Start Date 10/18/2018 Inactive Zithromax Z-Khoi oral RxNorm: 69902 oral No Start Date 03/24/2019 Inactive Echinacea ACZ oral RxNorm: oral No Start Date 07/28/2018 Inacti ve Vitamin D3 1000 units Capsule RxNorm: 1 Capsule(s) PO QD No St art Date 07/28/2018 Inactive Black Cohosh Oral RxNorm: Oral No Start Date 07/28/2018 Inactiv e Xanax 0.25 mg tablet RxNorm: 669735 1/2-1 Tablet(s) PO BID No Start Date 04/20/2013 Inactive Zyrtec 10 mg tablet RxNorm: 0740479 1 Tablet(s) PO QD as needed No Start Date 10/18/2018 Inactive Vitamin C 1,000 mg tablet RxNorm: 474457 1 Tablet(s) PO QD No Start Date 10/18/2018 Inactive fluoxetine 20 mg tablet RxNorm: 259304 1 Tablet(s) PO QD No Start D ate 08/03/2017 Inactive Medication Administered No Medication Administered data Immunizations Vaccine Codes Date Status Influenza CVX: 141 04/08/2019 Influenza CVX: 141 04/26/2018 Results Observation Observation Code Item Item Code Result Date S ervice Location CULTURE, URINE, ROUTINE 395 CULTURE, URINE, ROUTINE 10/20/2018 [facility] [address] [place] [address] GFR CALC 9280195 GFR Non Afr Amr >60 mL/min 07/05/2018 Un known GFR CALC 0519777 GFR Afr Amr >60 mL/min 07/05/2018 Unknow n FREE T4 66046 T4 Free 0.94 ng/dL 07/05/2018 Unknown [facility] 95524 Cholesterol 165 mg/dL 07/05/2018 Unkno wn [facility] 52148 Triglyceride 108 mg/dL 07/05/2018 Unkn own [facility] 47587 HDL CHOLESTEROL 50 mg/dL 07/05/2018 U nknown [facility] 13733 Chol/HDL Ratio 3.30 ratio 07/05/2018 U nknown [facility] 48924 NON-HDL Chol 115 mg/dL 07/05/2018 Unkn own [facility] 00291 LDL Cholesterol 93 mg/dL 07/05/2018 U nknown THYROID STIMULATING HORMONE 77329 TSH 0.937 uIU/mL 07/05/2018 Unknown COMPREHENSIVE METABOLIC 99046 AST 19 U/L 2018 Unknown COMPREHENSIVE METABOLIC 68686 ALT 21 U/L 2018 Unknown COMPREHENSIVE METABOLIC 37204 BUN 10 mg/dL 2018 Unknown COMPREHENSIVE METABOLIC 02910 ALBUMIN 4.3 g/dL 2018 Unknown COMPREHENSIVE METABOLIC 57027 CHLORIDE 106 mmol/L 07/05 Unknown COMPREHENSIVE METABOLIC 16055 Bili Total 0.3 mg/dL 07/05 Unknown COMPREHENSIVE METABOLIC 90058 ALK PHOS 59 U/L 2018 Unknown COMPREHENSIVE METABOLIC 79362 SODIUM 140 mmol/L 07/05 Unknown COMPREHENSIVE METABOLIC 74326 CREATININE 0.68 mg/dL 06/18 Unknown COMPREHENSIVE METABOLIC 08750 CALCIUM 9.2 mg/dL 2018 Unknown COMPREHENSIVE METABOLIC 61936 POTASSIUM 4.0 mmol/L 07/05 Unknown COMPREHENSIVE METABOLIC 68721 Total Protein 7.1 g/dL Unknown COMPREHENSIVE METABOLIC 72314 Glucose 84 mg/dL 2018 Unknown COMPREHENSIVE METABOLIC 13052 Bicarbonate 27 mmol/L 06/18 Unknown COMPREHENSIVE METABOLIC 40118 AGAP 7 mmol/L 2018 Unknown COMPLETE BLOOD COUNT 8106711 WBC 6.0 10e9/L 07/05/19 19 Unknown COMPLETE BLOOD COUNT 0048013 RBC 4.36 10e12/L 2018 Unknown COMPLETE BLOOD COUNT 6489390 HEMOGLOBIN 12.9 g/dL 07/05/19 19 Unknown COMPLETE BLOOD COUNT 6651126 HEMATOCRIT 39.1 % 07/05/19 19 Unknown COMPLETE BLOOD COUNT 9005764 MCV 89.7 fL 9 Unknown COMPLETE BLOOD COUNT 4389194 MCH 29.6 pg 9 Unknown COMPLETE BLOOD COUNT 3864388 MCHC 33.0 g/dL 9 Unknown COMPLETE BLOOD COUNT 0580093 PLATELET COUNT 270 10e9/L Unknown COMPLETE BLOOD COUNT 3680974 Mean Plt Volume 9.0 fL Unknown COMPLETE BLOOD COUNT 1100882 Neut Auto 53.8 % 9 Unknown COMPLETE BLOOD COUNT 6572875 Lymph Auto 35.8 % 07/05/19 19 Unknown COMPLETE BLOOD COUNT 8183935 Warrick Auto 7.9 % 9 Unknown COMPLETE BLOOD COUNT 2550641 RDW 13.9 % 9 Unknown COMPLETE BLOOD COUNT 8795973 Eos Auto 2.0 % 9 Unknown COMPLETE BLOOD COUNT 8767651 Baso Auto 0.5 % 9 Unknown COMPLETE BLOOD COUNT 4555947 Neutrophil Abs 3.23 10e9/L Unknown COMPLETE BLOOD COUNT 5618144 Lymphocyte Abs 2.15 10e9/L Unknown COMPLETE BLOOD COUNT [id number] Monocyte Abs 0.47 10e9/L 06/18 Unknown COMPLETE BLOOD COUNT 4034033 Eosinophil Abs 0.12 10e9/L Unknown COMPLETE BLOOD COUNT 9735614 RDW-SD 44.5 fL 9 Unknown COMPLETE BLOOD COUNT 4698971 Basophil Abs 0.03 10e9/L 06/18 Unknown FREE T4 79181 T4 Free 1.21 ng/dL 06/30/2017 Unknown GFR CALC 5217519 GFR Non Afr Amr >60 mL/min 06/30/2017 Un known GFR CALC 0245840 GFR Afr Amr >60 mL/min 06/30/2017 Unknow n THYROID STIMULATING HORMONE 87555 TSH 0.873 uIU/mL 06/30/2017 Unknown [facility] 62250 Cholesterol 175 mg/dL 06/30/2017 Unkno wn [facility] 18270 Triglyceride 129 mg/dL 06/30/2017 Unkn own [facility] 08793 HDL CHOLESTEROL 51 06/30/2017 U nknown [facility] 64521 Chol/HDL Ratio 3.43 ratio 06/30/2017 U nknown [facility] 70253 NON-HDL Chol 124 mg/dL 06/30/2017 Unkn own [facility] 38548 LDL Cholesterol 98 mg/dL 06/30/2017 U nknown COMPLETE BLOOD COUNT 9840284 WBC 6.2 10e9/L 06/30/19 18 Unknown COMPLETE BLOOD COUNT 5844457 RBC 4.58 10e12/L 2017 Unknown COMPLETE BLOOD COUNT 1076461 HEMOGLOBIN 13.3 g/dL 06/30/19 18 Unknown COMPLETE BLOOD COUNT 8568192 HEMATOCRIT 41.6 % 06/30/19 18 Unknown COMPLETE BLOOD COUNT 0503256 MCV 90.8 fL 8 Unknown COMPLETE BLOOD COUNT 1534075 MCH 29.0 pg 8 Unknown COMPLETE BLOOD COUNT 4198088 MCHC 32.0 g/dL 8 Unknown COMPLETE BLOOD COUNT 5339803 PLATELET COUNT 271 10e9/L Unknown COMPLETE BLOOD COUNT 7234450 Mean Plt Volume 8.9 fL Unknown COMPLETE BLOOD COUNT 4841079 Neut Auto 53.5 % 8 Unknown COMPLETE BLOOD COUNT 9360319 Lymph Auto 36.4 % 06/30/19 18 Unknown COMPLETE BLOOD COUNT 2999842 Warrick Auto 8.1 % 8 Unknown COMPLETE BLOOD COUNT 9831214 RDW 13.4 % 8 Unknown COMPLETE BLOOD COUNT 3068657 Eos Auto 1.5 % 8 Unknown COMPLETE BLOOD COUNT 1672865 Baso Auto 0.5 % 8 Unknown COMPLETE BLOOD COUNT 1741028 Neutrophil Abs 3.32 10e9/L Unknown COMPLETE BLOOD COUNT 3816026 Lymphocyte Abs 2.26 10e9/L Unknown COMPLETE BLOOD COUNT 9026983 Monocyte Abs 0.50 10e9/L 06/18 Unknown COMPLETE BLOOD COUNT 8826523 Eosinophil Abs 0.09 10e9/L Unknown COMPLETE BLOOD COUNT 5581858 RDW-SD 43.9 fL 8 Unknown COMPLETE BLOOD COUNT 7843523 Basophil Abs 0.03 10e9/L 06/18 Unknown COMPREHENSIVE METABOLIC 76192 AST 19 U/L 2017 Unknown COMPREHENSIVE METABOLIC 78802 ALT 22 U/L 2017 Unknown COMPREHENSIVE METABOLIC 58071 BUN 12 mg/dL 2017 Unknown COMPREHENSIVE METABOLIC 38441 ALBUMIN 4.9 g/dL 2017 Unknown COMPREHENSIVE METABOLIC 87069 CHLORIDE 106 mmol/L 06/30 Unknown COMPREHENSIVE METABOLIC 84412 Bili Total 0.4 mg/dL 06/30 Unknown COMPREHENSIVE METABOLIC 25164 ALK PHOS 66 U/L 2017 Unknown COMPREHENSIVE METABOLIC 37342 SODIUM 143 mmol/L 06/30 Unknown COMPREHENSIVE METABOLIC 62811 CREATININE 0.71 mg/dL 06/18 Unknown COMPREHENSIVE METABOLIC 91557 CALCIUM 9.9 mg/dL 2017 Unknown COMPREHENSIVE METABOLIC 46767 POTASSIUM 4.1 mmol/L 06/30 Unknown COMPREHENSIVE METABOLIC 80443 Total Protein 8.0 g/dL Unknown COMPREHENSIVE METABOLIC 55386 Glucose 87 mg/dL 2017 Unknown COMPREHENSIVE METABOLIC 99827 Bicarbonate 27 mmol/L 06/18 Unknown COMPREHENSIVE METABOLIC 92923 AGAP 10 mmol/L 2017 Unknown GFR CALC 2890684 GFR AA >60 ML/MIN 12/19/2013 Unknown GFR CALC 9615796 GFR NON-AA >60 ML/MIN 12/19/2013 Unknown [facility] GROUP 69999 HDL TEST 52 MG/DL 12/19/2013 Unknown [facility] 76437 TRIG 96 MG/DL 12/19/2013 Unknown [facility] 09176 TEST LDL 98 MG/DL 12/19/2013 Unknown [facility] 90404 CHOL 169 MG/DL 12/19/2013 Unknown [facility] 69621 RCHOL/HDL 3.25 RATIO 12/19/2013 Unknow n [facility] 94340 NON-HDL CH 117 MG/DL 12/19/2013 Unknow n COMPLETE BLOOD COUNT 3912560 WBC 5.6 10e9/L 12/20/19 14 Unknown COMPLETE BLOOD COUNT 6442259 RBC 4.45 10e12/L 2013 Unknown COMPLETE BLOOD COUNT 0132097 HGB 13.0 g/dL 4 Unknown COMPLETE BLOOD COUNT 7822234 HCT DET 39.9 % 4 Unknown COMPLETE BLOOD COUNT 3731552 MCV 89.7 fL 4 Unknown COMPLETE BLOOD COUNT 9930366 MCH 29.2 pg 4 Unknown COMPLETE BLOOD COUNT 1992175 MCHC 32.6 g/dL 4 Unknown COMPLETE BLOOD COUNT 4672197 PLT 244 10e9/L 12/20/19 14 Unknown COMPLETE BLOOD COUNT 9430235 MPV 9.4 fL 4 Unknown COMPLETE BLOOD COUNT 4373314 PABLITO % 58.5 % 4 Unknown COMPLETE BLOOD COUNT 6637512 LY % 30.8 % 4 Unknown COMPLETE BLOOD COUNT 6527724 MON % 8.2 % 4 Unknown COMPLETE BLOOD COUNT 9194176 EOS % 2.0 % 4 Unknown COMPLETE BLOOD COUNT 0223672 BASO % 0.5 % 4 Unknown COMPLETE BLOOD COUNT 3859251 RDW 13.6 % 4 Unknown COMPLETE BLOOD COUNT 5150760 ABS PABLITO 3.28 10e9/L 014 Unknown COMPLETE BLOOD COUNT 5020781 ABS LYMPH 1.72 10e9/L 014 Unknown COMPLETE BLOOD COUNT 1555869 ABS MONO 0.46 10e9/L 014 Unknown COMPLETE BLOOD COUNT 1332259 ABS EOS 0.11 10e9/L 014 Unknown COMPLETE BLOOD COUNT 1212145 ABS BASO 0.03 10e9/L 014 Unknown COMPLETE BLOOD COUNT 7211657 RDW-SD 43.6 fL 4 Unknown FREE T4 82042 FREE T4 1.26 NG/DL 12/19/2013 Unknown COMPREHENSIVE METABOLIC 62875 AST 18 U/L 2013 Unknown COMPREHENSIVE METABOLIC 78461 ALT 22 IU/L 2013 Unknown COMPREHENSIVE METABOLIC 60412 BUN 11 MG/DL 2013 Unknown COMPREHENSIVE METABOLIC 59714 ALBUMIN 4.7 GM/DL 2013 Unknown COMPREHENSIVE METABOLIC 85187 CHLORIDE 108 MMOL/L 12/19 Unknown COMPREHENSIVE METABOLIC 49033 BILI TOT 0.3 MG/DL 2013 Unknown COMPREHENSIVE METABOLIC 64433 ALK PHOS 67 U/L 2013 Unknown COMPREHENSIVE METABOLIC 81427 SODIUM 141 MMOL/L 12/19 Unknown COMPREHENSIVE METABOLIC 97299 CREATININE 0.67 MG/DL 08/2013 Unknown COMPREHENSIVE METABOLIC 90789 CALCIUM 9.4 MG/DL 2013 Unknown COMPREHENSIVE METABOLIC 89485 POTASSIUM 4.1 MMOL/L 12/19 Unknown COMPREHENSIVE METABOLIC 01680 PROT TOT 7.0 GM/DL 2013 Unknown COMPREHENSIVE METABOLIC 26272 Glucose 94 MG/DL 2013 Unknown COMPREHENSIVE METABOLIC 43840 BICARB 27 MMOL/L 2013 Unknown COMPREHENSIVE METABOLIC 94693 ANION GAP 6 MEQ/L 2013 Unknown THYROID STIMULATING HORMONE 71854 TSH 0.547 uIU/ML 12/19/2013 Unknown GFR CALC 9162564 GFR AA >60 ML/MIN 02/03/2011 Unknown GFR CALC 2560224 GFR NON-AA >60 ML/MIN 02/03/2011 Unknown THYROID STIMULATING HORMONE 91824 TSH 0.818 uIU/ML 02/03/2011 Unknown COMPLETE BLOOD COUNT 89932 WBC 7.7 10e9/L 02/04/20 11 Unknown COMPLETE BLOOD COUNT 84245 RBC 4.23 10e12/L 2010 Unknown COMPLETE BLOOD COUNT 04378 HGB 11.9 g/dL 1 Unknown COMPLETE BLOOD COUNT 96228 HCT DET 36.5 % 1 Unknown COMPLETE BLOOD COUNT 86350 MCV 86.3 fL 1 Unknown COMPLETE BLOOD COUNT 20723 MCH 28.1 pg 1 Unknown COMPLETE BLOOD COUNT 17582 MCHC 32.6 g/dL 1 Unknown COMPLETE BLOOD COUNT 14392 PLT 244 10e9/L 02/04/20 11 Unknown COMPLETE BLOOD COUNT 27670 MPV 8.7 fL 1 Unknown COMPLETE BLOOD COUNT 21739 PABLITO % 58.9 % 1 Unknown COMPLETE BLOOD COUNT 56183 LY % 31.1 % 1 Unknown COMPLETE BLOOD COUNT 05707 MON % 7.9 % 1 Unknown COMPLETE BLOOD COUNT 48658 EOS % 1.8 % 1 Unknown COMPLETE BLOOD COUNT 53692 BASO % 0.3 % 1 Unknown COMPLETE BLOOD COUNT 28684 RDW 14.7 % 1 Unknown COMPLETE BLOOD COUNT 43394 ABS PABLITO 4.54 10e9/L 011 Unknown COMPLETE BLOOD COUNT 02544 ABS LYMPH 2.39 10e9/L 011 Unknown COMPLETE BLOOD COUNT 40193 ABS MONO 0.61 10e9/L 011 Unknown COMPLETE BLOOD COUNT 48997 ABS EOS 0.14 10e9/L 011 Unknown COMPLETE BLOOD COUNT 89919 ABS BASO 0.02 10e9/L 011 Unknown COMPLETE BLOOD COUNT 84905 RDW-SD 45.1 fL 1 Unknown COMPREHENSIVE METABOLIC 07019 AST 16 U/L 2010 Unknown COMPREHENSIVE METABOLIC 00245 ALT 21 IU/L 2010 Unknown COMPREHENSIVE METABOLIC 95872 BUN 9 MG/DL 2010 Unknown COMPREHENSIVE METABOLIC 34559 ALBUMIN 4.5 GM/DL 2010 Unknown COMPREHENSIVE METABOLIC 67735 CHLORIDE 104 MMOL/L 02/03 Unknown COMPREHENSIVE METABOLIC 26168 BILI TOT 0.2 MG/DL 2010 Unknown COMPREHENSIVE METABOLIC 67320 ALK PHOS 65 U/L 2010 Unknown COMPREHENSIVE METABOLIC 95227 SODIUM 137 MMOL/L 02/03 Unknown COMPREHENSIVE METABOLIC 96766 CREATININE 0.64 MG/DL 01/16 Unknown COMPREHENSIVE METABOLIC 65325 CALCIUM 8.8 MG/DL 2010 Unknown COMPREHENSIVE METABOLIC 80977 POTASSIUM 3.8 MMOL/L 02/03 Unknown COMPREHENSIVE METABOLIC 02690 PROT TOT 6.7 GM/DL 2010 Unknown COMPREHENSIVE METABOLIC 04153 Glucose 88 MG/DL 2010 Unknown COMPREHENSIVE METABOLIC 40471 BICARB 26 MMOL/L 2010 Unknown COMPREHENSIVE METABOLIC 05107 ANION GAP 7 MEQ/L 2010 Unknown FREE T4 34882 FREE T4 1.24 NG/DL 02/03/2011 Unknown Procedures Procedure Codes Date CEFTRIAXONE SODIUM INJECTION CPT-4: J0696 05/04/2019 THER/PROPH/DIAG INJ SC/IM CPT-4: 73402 05/04/2019 CEFTRIAXONE SODIUM INJECTION CPT-4: J0696 05/03/2019 THER/PROPH/DIAG INJ SC/IM CPT-4: 97178 05/03/2019 CEFTRIAXONE SODIUM INJECTION CPT-4: J0696 05/02/2019 THER/PROPH/DIAG INJ SC/IM CPT-4: 77383 05/02/2019 DEXAMETHASONE SODIUM PHOS CPT-4: J1100 10/19/2018 THER/PROPH/DIAG INJ SC/IM CPT-4: 04805 10/19/2018 URINE CULTURE/ COLONY COUNT CPT-4: 72463 10/19/2018 URINALYSIS NONAUTO W/O SCOPE CPT-4: 46194 10/19/2018 THROAT CULTURE CPT-4: 84088 07/29/2018 STREP A ASSAY W/OPTIC CPT-4: 40473 07/26/2018 SPECIMEN HANDLING OFFICE-LAB CPT-4: 87822 07/06/2018 OCCULT BLOOD FECES CPT-4: 10023 07/06/2018 ROUTINE VENIPUNCTURE CPT-4: 71693 12/19/2013 ASSAY OF FREE THYROXINE CPT-4: 14175 12/19/2013 ASSAY THYROID STIM HORMONE CPT-4: 90268 12/19/2013 COMPREHEN METABOLIC PANEL CPT-4: 85821 12/19/2013 COMPLETE CBC W/AUTO DIFF WBC CPT-4: 29879 12/19/2013 LIPID PANEL CPT-4: 22403 12/19/2013 OCCULT BLOOD FECES CPT-4: 41360 02/03/2011 SPECIMEN HANDLING OFFICE-LAB CPT-4: 84315 12/25/2009 OCCULT BLOOD FECES CPT-4: 91892 12/25/2009 Vital Signs Date Vital 05/05/2019 Blood [...] 1: 130/78 Code: 8480-6 BMI: 30.7 Code: 25497-0 Heart Rate 1: 76 bpm Height: 5'9" Respiratory Rate: 20 bpm Temperature: 36 .8 (C) / 98.3 (F) Weight: 208 lbs 06/30/2017 Blood Pressure 1: 126/80 Code: 8480-6 BMI: 30.9 Code: 38689-5 Heart Rate 1: 72 bpm Height: 5'9" Respiratory Rate: 20 bpm Temperature: 36 .7 (C) / 98.0 (F) Weight: 209 lbs 02/04/2016 Blood Pressure 1: 122/80 Code: 8480-6 BMI: 31.3 Code: 75681-2 Heart Rate 1: 80 bpm Height: 5'9" Respiratory Rate: 20 bpm Temperature: 36 .6 (C) / 97.8 (F) Weight: 212 lbs 12/19/2013 Blood Pressure 1: 116/78 Code: 8480-6 BMI: 30.1 Code: 63142-4 Heart Rate 1: 76 bpm Height: 5'9" Respiratory Rate: 20 bpm Temperature: 36 .8 (C) / 98.3 (F) Weight: 204 lbs 10/27/2012 Blood Pressure 1: 114/70 Code: 8480-6 BMI: 30.3 Code: 94621-3 Heart Rate 1: 68 bpm Height: 5'9" Respiratory Rate: 20 bpm Temperature: 36 .8 (C) / 98.3 (F) Weight: 205 lbs 09/01/2012 Blood Pressure 1: 118/82 Code: 8480-6 BMI: 30.9 Code: 46656-4 Heart Rate 1: 80 bpm Height: 5'9" Respiratory Rate: 20 bpm Temperature: 36 .8 (C) / 98.2 (F) Weight: 209 lbs 02/03/2011 Blood Pressure 1: 118/76 Code: 8480-6 BMI: 29.5 Code: 77582-4 Heart Rate 1: 72 bpm Height: 5'9" Weight: 200 lbs 12/25/2009 Blood Pressure 1: 122/76 Code: 8480-6 BMI: 29.5 Code: 45967-9 Heart Rate 1: 80 bpm Height: 5'9" [...] 11/24 Encounters Encounter Performer Location Codes Date ([id number]) NO CHARGE Diagnosis: Cellulitis of right breast[ICD10: N61.0] Josesito DEL ROSARIO DO [facility] CPT-4: 46811 05/05/2019 ([id number]) OFFICE/OUTPATIENT VISIT EST Diagnosis: Cellulitis of right breast[ICD10: N61.0] Josesito DEL ROSARIO DO [facility] CPT-4: 51089 05/04/2019 ([id number]) OFFICE/OUTPATIENT VISIT EST Diagnosis: Cellulitis of right breast[ICD10: N61.0] Josesito DEL ROSARIO DO [facility] CPT-4: 66230 05/03/2019 ([id number]) OFFICE/OUTPATIENT VISIT EST Diagnosis: Cellulitis of right breast[ICD10: N61.0] Josesito DEL ROSARIO DO [facility] CPT-4: 76764 05/02/2019 ([id number]) OFFICE/OUTPATIENT VISIT EST Diagnosis: Edema, unspecified[ICD10: R60.9] Diagnosis: Adverse effect of unspecified drugs, medicaments and biological substances, initial encounter[ICD10: T50.905A] Diagnosis: Gross hematuria[ICD10: R31.0] Josesito DEL ROSARIO DO [facility] CPT-4: 39773 10/19/2018 ([id number]) OFFICE/OUTPATIENT VISIT EST Diagnosis: URI, ACUTE[ICD10: J06.9] Josesito SHIELDS [facility] CPT-4: 61272 07/29/2018 ([id number]) OFFICE/OUTPATIENT VISIT EST Diagnosis: Acute pharyngitis, unspecified[ICD10: J02.9] Diagnosis: URI, ACUTE[ICD10: J06.9] Josesito SHIELDS [facility] CPT-4: 29835 07/26/2018 ([id number]) PREV VISIT EST AGE 40-64 Diagnosis: Encounter for general adult medical examination without abnormal findings[ICD10: Z00.00] Diagnosis: Encounter for gynecological examination (general) (routine) without abnormal findings[ICD10: Z01.419] Diagnosis: Menopausal and female climacteric states[ICD10: N95.1] Diagnosis: Other abnormal and inconclusive findings on diagnostic imaging of breast[ICD10: R92.8] Josesito DEL ROSARIO DO [facility] CPT-4: 71359 07/06/2018 ([id number]) PREV VISIT EST AGE 40-64 Diagnosis: Encounter for general adult medical examination without abnormal findings[ICD10: Z00.00] Diagnosis: Encounter for gynecological examination (general) (routine) without abnormal findings[ICD10: Z01.419] Josesito Lund [facility] CPT-4: 77518 06/30/2017 ([id number]) PREV VISIT EST AGE 40-64 Diagnosis: Encounter for general adult medical examination without abnormal findings[ICD10: Z00.00] Josesito DEL ROSARIO [facility] CPT-4: 85566 02/04/2016 ([id number]) PREV VISIT EST AGE 40-64 Diagnosis: ROUTINE MEDICAL EXAM[ICD9: V70.0] Diagnosis: MENOPAUSAL DISORDER[ICD9: 627.9] Joseisto DEL ROSARIO DO [facility] CPT-4: 76262 12/19/2013 OFFICE/OUTPATIENT VISIT EST Diagnosis: MENOPAUSAL DISORDER[ICD9: 627.9] Josesito DEL ROSARIO [facility] CPT-4: 51889 10/27/2012 ([id number]) PREV VISIT EST AGE 40-64 Diagnosis: ROUTINE MEDICAL EXAM[ICD9: V70.0] Diagnosis: MENOPAUSAL DISORDER[ICD9: 627.9] Josesito DEL ROSARIO DO [facility] CPT-4: 91699 09/01/2012 PREV VISIT EST AGE 40-64 Diagnosis: ROUTINE GYNE EXAM[ICD9: V72.31] Diagnosis: ROUTINE MEDICAL EXAM[ICD9: V70.0] Josesito DEL ROSARIO [facility] CPT-4: 46950 02/03/2011 SPECIMEN HANDLING Diagnosis: [ICD9: ] Diagnosis: [ICD9: ] Josesito DEL ROSARIO DO [facility] CPT-4: 9900 0 02/03/2011 ([id number]) PREV VISIT, EST, AGE 40-64 Josesito Angelitoruss DEL ROSARIO DO [facility] CPT-4: 34219 12/25/2009 Plan of Care Planned Activity Notes Codes Status Date Visit Diagnosis Plan: Cellulitis of right breast Discu ssion: Having surgery tomorrow at ICD-9 : 611.0 ICD-10 : N61.0 05/05/2019 Visit Diagnosis Plan: Cellulitis of right breast Discu ssion: Repeat rocephin 1gm IM Continue clindamycin Recheck tomorrow ICD-9 : 611.0 ICD-10 : N61.0 05/04/2019 Appointment: Josesito Del Rosario WPtel: [address] [place] [address] US FOLLOW UP 05/04/2019 Visit Diagnosis Plan: Cellulitis of right breast Discu ssion: Repeat Rocephin 1gm IM today Continue clindamycin Recheck tomorrow ICD-9 : 611.0 ICD-10 : N61.0 05/03/2019 Appointment: Josesito Del Rosario WPtel: [address] [place] [address] US FOLLOW UP 05/03/2019 Visit Diagnosis Plan: Cellulitis of right breast Discu ssion: Rocephin 1gm IM now Start clindamycin with a probiotic Recheck tomorrow ICD-9 : 611.0 ICD-10 : N61.0 05/02/2019 Appointment: Josesito Del Rosario WPtel: [address] [place] [address] ACUTE ILLNESS 05/02/2019 Patient Education: clindamycin HCl- [employer] Coupon [id number] [email or web address] Completed 05/02/2019 Care Plan: TRANSVAGINAL US NON-OB LOINC : 01716-8 Pending 10/21/2018 Appointment: Josesito Del Rosario WPtel: [address] [place], [place] [phone] WT CHECK 10/20/2018 Visit Diagnosis Plan: Adverse [...] R60.9 10/19/2018 Appointment: Josesito Del Rosario WPtel: [address] [place], [place] [phone] 10/19/2018 Appointment: Josesito Del Rosario WPtel: [address] [place], [place] [phone] US Per DR CASEYCELED 08/02/2018 Visit Diagnosis Plan: URI, ACUTE Discussion: CXR negat johnna Lungs clear Only physical exam finding is injection on throat and mild fluid behind ears Will increase zyrtec to BID Throat Culture Notify surgeon of current course ICD-9 : 465.9 ICD-10 : J06.9 07/29/2018 Appointment: Josesito Del Rosario WPtel: [address] [place], [place] [phone] WORK IN 07/29/2018 Visit Diagnosis Plan: Acute pharyngitis, unspecified D iscussion: Strep Negative Cover with Zithromax with upcoming surgery next week but if worsens will let us know and will have to postpone surgery ICD-9 : 462 ICD-10 : J02.9 07/26/2018 Visit NOS Plan: Plan Notes: Supportive care. Rest, Fluids... 07/26/2018 Appointment: Josesito Del Rosario WPtel: [address] [place], [place] [phone] ACUTE ILLNESS 07/26/2018 Visit Diagnosis Plan: Encounter [...] N95.1 07/06/2018 Appointment: Josesito Del Rosario WPtel: [address] [place], [place] [id number] US PAP 07/06/2018 Care Plan: MAMMOGRAM BOTH BREASTS Diagnostic Mammogram of Le ft Breast LOINC : 77700-9 Pending 06/24/2018 Care Plan: US EXAM CHEST [...] Z01.419 06/30/2017 Appointment: Josesito Del Rosario WPtel: [facility] [place] [id number] [facility] 06/30/2017 Patient Education: Patient Medication Summary Completed 06/30/2017 Visit Plan: Update fasting lab Pap done Had mammogram Weight bearing exercise 02/04/2016 Appointment: Josesito Del Rosario WPtel: [address] [place] [address] 01/30 confirmed~sl PAP 02/04/2016 Patient Education: Patient Medication Summary Completed 02/04/2016 Appointment: Josesito Del Rosario WPtel: [address] [place] [address] RESCHEDULED 01/17/2016 Patient Education: Patient Medication Summary Completed 12/31/2015 Care Plan: MAMMOGRAM SCREENING LOINC : 2 6347-5 Pending 12/31/2015 Visit Plan: Try to decrease fluoxetine t o 10mg daily Check Mammo Check fasting lab Check Colonoscopy due to family hx of Colon Cancer 12/19/2013 Appointment: Josesito Del Rosario WPtel: [address] [place] [address] 12/16 vm PAP 12/19/2013 Patient Education: Patient Medication Summary Completed 12/19/2013 Visit Plan: Long discussion about HRT--p t has Breast Ca on both sides--Discussed BRCA gene testing in Mom Will try higher dose of fluoxetine 10/27/2012 Appointment: Josesito Del Rosario WPtel: [address] [place] [address] FOLLOW UP 10/27/2012 Patient Education: Patient Medication Summary Completed 10/27/2012 Visit Plan: Lab discussed Add fish oil 3 grams daily Long discussion about hormones Trial of fluoxetine 09/01/2012 Appointment: Josesito Del Rosario WPtel: [address] [place] [address] PAP 09/01/2012 Patient Education: Patient Medication Summary Completed 09/01/2012 Visit Plan: Pap Done and Mammogram order ed Fasting lab ordered 02/03/2011 Appointment: Josesito Del Rosario WPtel: [address] [place] [address] PAP 02/03/2011 Patient Education: Patient Medication Summary Completed 02/03/2011 Visit Plan: Pap done Mammo done last wee k Lab discussed Discussed Bioidentical Hormones 12/25/2009 Appointment: Josesito Del Rosario WPtel: [id number] PAP 12/25/2009 Patient Education: Patient Medication Summary [...]
--- OUTSIDE RECORDS SUMMARY | 2019-05-15 23:42 | XMS REPORT | CCD ---
Author Author Caridad Del Rosario D.O. Organization JOSESITO DEL ROSARIO DO [facility] Address [address] [place] [address] Phone Care Team Providers Care Yarn Man Name Role Phone PP Unavailable CCM Unavailable Summary Purpose Interface Exchange Insurance Providers Payer name Policy type / Coverage type Covered green party ID Effective Begin Date Effective End Date [facility] Commercial Insurance [id number] Un known Family History Family History data [...] Instructions clindamycin HCl 300 mg capsule RxNorm: 646457 1 Capsule (s) Oral three times a day 05/02/2019 05/09/2019 Active fluoxetine 20 mg tablet RxNorm: 279758 1 Tablet(s) Oral QD 03/29/20 19 09/24/2019 Active Zithromax Z-Khoi 250 mg tablet RxNorm: 805546 Tablet(s) Oral as directed 03/25/2019 03/25/2019 Inactive Zithromax Z-Khoi 250 mg tablet RxNorm: 196706 Tablet(s) Oral as directed 03/25/2019 03/24/2019 Inactive famotidine 20 mg tablet RxNorm: 454139 1 Tablet(s) PO BID 10/19/2018 02/15/2019 Inactive Tessalon Perles 100 mg capsule RxNorm: 238229 1 Capsule (s) PO TID as needed for cough 07/26/2018 10/18/2018 Inactive Zithromax 500 mg tablet RxNorm: 244083 1 Tablet(s) PO QD 07/26/2018 0 07/25/2018 Inactive Zithromax 500 mg tablet RxNorm: 598187 1 Tablet(s) PO QD 07/26/2018 0 07/30/2018 Inactive Xanax 0.25 mg tablet RxNorm: 419096 1/2-1 Tablet(s) PO BID 06/01/19 19 No Stop Date Active fluoxetine 20 mg tablet RxNorm: 706302 1 Tablet(s) PO Q D Due for annual appointment in 06/01/2018 02/25/2019 Inactive fluoxetine 20 mg tablet RxNorm: 452357 1 Tablet(s) PO Q D Due for annual in [facility] 06/01/2018 02/25/2019 Inactive fluoxetine 20 mg tablet RxNorm: 133090 1 Tablet(s) PO QD 08/05/2017 1 07/02/2017 Inactive fluoxetine 20 mg tablet RxNorm: 473290 1 Tablet(s) PO QD 08/04/2017 0 08/04/2017 Inactive Xanax 0.25 mg tablet RxNorm: 020372 1/2-1 Tablet(s) PO BID 07/02/19 18 05/31/2018 Inactive fluoxetine 10 mg capsule RxNorm: 521239 2 Capsule(s) PO QAM 018 07/05/2018 Inactive Generic For:PROZAC 10 MG PUL VULE 09/24/2015 10:15:02 AM N O T I C E Last quantity doesn't match original quantity fluoxetine 10 mg capsule RxNorm: 900484 2 Capsule(s) PO QAM Routine wellness due after 02-04-17 12/03/2016 03/02/2017 Inactive Generic For:PROZ AC 10 MG PULVULE 09/24/2015 10:15:02 AM N O T I C E Last quantity doesn't match original quantity Xanax 0.25 mg tablet RxNorm: 719890 1/2-1 Tablet(s) PO BID 02/05/20 16 07/01/2017 Inactive fluoxetine 10 mg capsule RxNorm: 163660 2 Capsule(s) PO QAM 016 07/25/2018 Inactive fluoxetine 10 mg capsule RxNorm: 783547 2 Capsule(s) PO QAM 016 12/03/2016 Inactive Generic For:PROZAC 10 MG PUL VULE 09/24/2015 10:15:02 AM N O T I C E Last quantity doesn't match original quantity fluoxetine 10 mg capsule RxNorm: 609794 2 Capsule(s) PO QAM TAKE 2 CAPSULES BY MOUTH EVERY MORNING 11/16/2015 02/03/2016 Inactive Generic For: PROZAC 10 MG PULVULE 09/24/2015 10:15:02 AM N O T I C E Last quantity doesn't match original quantity fluoxetine 10 mg capsule RxNorm: 328088 2 Capsule(s) PO QAM TAKE 2 CAPSULES BY MOUTH EVERY MORNING 09/24/2015 11/15/2015 Inactive Generic For: PROZAC 10 MG PULVULE 09/24/2015 10:15:02 AM N O T I C E Last quantity doesn't match original quantity fluoxetine 10 mg capsule RxNorm: 290889 2 Capsule(s) PO QAM 015 09/24/2015 Inactive fluoxetine 10 mg capsule RxNorm: 403915 2 Capsule(s) PO QAM 015 07/28/2018 Inactive fluoxetine 10 mg capsule RxNorm: 997462 2 Capsule(s) PO QAM 014 05/21/2014 Inactive Xanax 0.25 mg tablet RxNorm: 859059 1/2-1 Tablet(s) PO BID 04/21/20 13 No Stop Date Active fluoxetine 10 mg capsule RxNorm: 235506 2 Capsule(s) PO QAM 013 01/24/2013 Inactive fluoxetine 10 mg capsule RxNorm: 424532 1 Capsule(s) PO QAM 013 10/26/2012 Inactive Multivitamin & Mineral Formula Tab RxNorm: 1 Tablet(s) PO QD No St art Date Active Zyrtec 10 mg tablet RxNorm: 7967070 1 Tablet(s) PO BID No Start Date Active Prilosec OTC 20 mg tablet,delayed release RxNorm: 337381 1 Tabl et(s) PO QD No Start Date Active Tessalon Perles 100 mg capsule RxNorm: 088751 1 Capsule (s) PO TID as needed for cough No Start Date 07/25/2018 Inactive Biotin Oral RxNorm: Oral No Start Date 10/18/2018 Inactive Zithromax Z-Khoi oral RxNorm: 26007 oral No Start Date 03/24/2019 Inactive Echinacea ACZ oral RxNorm: oral No Start Date 07/28/2018 Inacti ve Vitamin D3 1000 units Capsule RxNorm: 1 Capsule(s) PO QD No St art Date 07/28/2018 Inactive Black Cohosh Oral RxNorm: Oral No Start Date 07/28/2018 Inactiv e Xanax 0.25 mg tablet RxNorm: 122985 1/2-1 Tablet(s) PO BID No Start Date 04/20/2013 Inactive Zyrtec 10 mg tablet RxNorm: 7545064 1 Tablet(s) PO QD as needed No Start Date 10/18/2018 Inactive Vitamin C 1,000 mg tablet RxNorm: 666078 1 Tablet(s) PO QD No Start Date 10/18/2018 Inactive fluoxetine 20 mg tablet RxNorm: 324380 1 Tablet(s) PO QD No Start D ate 08/03/2017 Inactive Medication Administered No Medication Administered data Immunizations Vaccine Codes Date Status Influenza CVX: 141 04/08/2019 Influenza CVX: 141 04/26/2018 Results Observation Observation Code Item Item Code Result Date S ervice Location CULTURE, URINE, ROUTINE 395 CULTURE, URINE, ROUTINE 10/20/2018 [facility] [address] [place] [address] GFR CALC [id number] GFR Non Afr Amr >60 mL/min 07/05/2018 Un known GFR CALC [id number] GFR Afr Amr >60 mL/min 07/05/2018 Unknow n FREE T4 80881 T4 Free 0.94 ng/dL 07/05/2018 Unknown [facility] 52984 Cholesterol 165 mg/dL 07/05/2018 Unkno wn [facility] 99873 Triglyceride 108 mg/dL 07/05/2018 Unkn own [facility] 01474 HDL CHOLESTEROL 50 mg/dL 07/05/2018 U nknown [facility] 60012 Chol/HDL Ratio 3.30 ratio 07/05/2018 U nknown [facility] 70029 NON-HDL Chol 115 mg/dL 07/05/2018 Unkn own [facility] 21013 LDL Cholesterol 93 mg/dL 07/05/2018 U nknown THYROID STIMULATING HORMONE 55359 TSH 0.937 uIU/mL 07/05/2018 Unknown COMPREHENSIVE METABOLIC 75028 AST 19 U/L 2018 Unknown COMPREHENSIVE METABOLIC 82946 ALT 21 U/L 2018 Unknown COMPREHENSIVE METABOLIC 33801 BUN 10 mg/dL 2018 Unknown COMPREHENSIVE METABOLIC 38089 ALBUMIN 4.3 g/dL 2018 Unknown COMPREHENSIVE METABOLIC 16272 CHLORIDE 106 mmol/L 07/05 Unknown COMPREHENSIVE METABOLIC 04718 Bili Total 0.3 mg/dL 07/05 Unknown COMPREHENSIVE METABOLIC 27783 ALK PHOS 59 U/L 2018 Unknown COMPREHENSIVE METABOLIC 63698 SODIUM 140 mmol/L 07/05 Unknown COMPREHENSIVE METABOLIC 25825 CREATININE 0.68 mg/dL 06/18 Unknown COMPREHENSIVE METABOLIC 24978 CALCIUM 9.2 mg/dL 2018 Unknown COMPREHENSIVE METABOLIC 14793 POTASSIUM 4.0 mmol/L 07/05 Unknown COMPREHENSIVE METABOLIC 67708 Total Protein 7.1 g/dL Unknown COMPREHENSIVE METABOLIC 46840 Glucose 84 mg/dL 2018 Unknown COMPREHENSIVE METABOLIC 21734 Bicarbonate 27 mmol/L 06/18 Unknown COMPREHENSIVE METABOLIC 04028 AGAP 7 mmol/L 2018 Unknown COMPLETE BLOOD COUNT 8800949 WBC 6.0 10e9/L 07/05/19 19 Unknown COMPLETE BLOOD COUNT 6894032 RBC 4.36 10e12/L 2018 Unknown COMPLETE BLOOD COUNT 1204530 HEMOGLOBIN 12.9 g/dL 07/05/19 19 Unknown COMPLETE BLOOD COUNT 4098272 HEMATOCRIT 39.1 % 07/05/19 19 Unknown COMPLETE BLOOD COUNT 9917575 MCV 89.7 fL 9 Unknown COMPLETE BLOOD COUNT 0000161 MCH 29.6 pg 9 Unknown COMPLETE BLOOD COUNT 1527719 MCHC 33.0 g/dL 9 Unknown COMPLETE BLOOD COUNT 3706620 PLATELET COUNT 270 10e9/L Unknown COMPLETE BLOOD COUNT 8663820 Mean Plt Volume 9.0 fL Unknown COMPLETE BLOOD COUNT 9686119 Neut Auto 53.8 % 9 Unknown COMPLETE BLOOD COUNT 3126924 Lymph Auto 35.8 % 07/05/19 19 Unknown COMPLETE BLOOD COUNT 3133051 [place] Auto 7.9 % 9 Unknown COMPLETE BLOOD COUNT 1607892 RDW 13.9 % 9 Unknown COMPLETE BLOOD COUNT 4401551 Eos Auto 2.0 % 9 Unknown COMPLETE BLOOD COUNT 2452306 Baso Auto 0.5 % 9 Unknown COMPLETE BLOOD COUNT 7730241 Neutrophil Abs 3.23 10e9/L Unknown COMPLETE BLOOD COUNT 4711518 Lymphocyte Abs 2.15 10e9/L Unknown COMPLETE BLOOD COUNT 5456543 Monocyte Abs 0.47 10e9/L 06/18 Unknown COMPLETE BLOOD COUNT 2145481 Eosinophil Abs 0.12 10e9/L Unknown COMPLETE BLOOD COUNT 1079831 RDW-SD 44.5 fL 9 Unknown COMPLETE BLOOD COUNT 8373378 Basophil Abs 0.03 10e9/L 06/18 Unknown FREE T4 55898 T4 Free 1.21 ng/dL 06/30/2017 Unknown GFR CALC 2425660 GFR Non Afr Amr >60 mL/min 06/30/2017 Un known GFR CALC 7965427 GFR Afr Amr >60 mL/min 06/30/2017 Unknow n THYROID STIMULATING HORMONE 60338 TSH 0.873 uIU/mL 06/30/2017 Unknown [facility] 35345 Cholesterol 175 mg/dL 06/30/2017 Unkno wn [facility] 14820 Triglyceride 129 mg/dL 06/30/2017 Unkn own [facility] 54444 HDL CHOLESTEROL 51 06/30/2017 U nknown [facility] GROUP 82585 Chol/HDL Ratio 3.43 ratio 06/30/2017 U nknown L[facility] GROUP 42900 NON-HDL Chol 124 mg/dL 06/30/2017 Unkn own [facility] GROUP 83705 LDL Cholesterol 98 mg/dL 06/30/2017 U nknown COMPLETE BLOOD COUNT 2955635 WBC 6.2 10e9/L 06/30/19 18 Unknown COMPLETE BLOOD COUNT 7778394 RBC 4.58 10e12/L 2017 Unknown COMPLETE BLOOD COUNT 3554454 HEMOGLOBIN 13.3 g/dL 06/30/19 18 Unknown COMPLETE BLOOD COUNT 3574304 HEMATOCRIT 41.6 % 06/30/19 18 Unknown COMPLETE BLOOD COUNT 1939760 MCV 90.8 fL 8 Unknown COMPLETE BLOOD COUNT 4749124 MCH 29.0 pg 8 Unknown COMPLETE BLOOD COUNT 2411973 MCHC 32.0 g/dL 8 Unknown COMPLETE BLOOD COUNT 6495432 PLATELET COUNT 271 10e9/L Unknown COMPLETE BLOOD COUNT 6057145 Mean Plt Volume 8.9 fL Unknown COMPLETE BLOOD COUNT 2003600 Neut Auto 53.5 % 8 Unknown COMPLETE BLOOD COUNT 4964321 Lymph Auto 36.4 % 06/30/19 18 Unknown COMPLETE BLOOD COUNT 5095762 [place]ave Auto 8.1 % 8 Unknown COMPLETE BLOOD COUNT 5161702 RDW 13.4 % 8 Unknown COMPLETE BLOOD COUNT 9443333 Eos Auto 1.5 % 8 Unknown COMPLETE BLOOD COUNT 3500490 Baso Auto 0.5 % 8 Unknown COMPLETE BLOOD COUNT 9163509 Neutrophil Abs 3.32 10e9/L Unknown COMPLETE BLOOD COUNT 6160643 Lymphocyte Abs 2.26 10e9/L Unknown COMPLETE BLOOD COUNT 0073454 Monocyte Abs 0.50 10e9/L 06/18 Unknown COMPLETE BLOOD COUNT 6610349 Eosinophil Abs 0.09 10e9/L Unknown COMPLETE BLOOD COUNT 9118016 RDW-SD 43.9 fL 8 Unknown COMPLETE BLOOD COUNT 6412660 Basophil Abs 0.03 10e9/L 06/18 Unknown COMPREHENSIVE METABOLIC 86865 AST 19 U/L 2017 Unknown COMPREHENSIVE METABOLIC 90385 ALT 22 U/L 2017 Unknown COMPREHENSIVE METABOLIC 31838 BUN 12 mg/dL 2017 Unknown COMPREHENSIVE METABOLIC 30361 ALBUMIN 4.9 g/dL 2017 Unknown COMPREHENSIVE METABOLIC 34275 CHLORIDE 106 mmol/L 06/30 Unknown COMPREHENSIVE METABOLIC 67548 Bili Total 0.4 mg/dL 06/30 Unknown COMPREHENSIVE METABOLIC 90668 ALK PHOS 66 U/L 2017 Unknown COMPREHENSIVE METABOLIC 37187 SODIUM 143 mmol/L 06/30 Unknown COMPREHENSIVE METABOLIC 20598 CREATININE 0.71 mg/dL 06/18 Unknown COMPREHENSIVE METABOLIC 23549 CALCIUM 9.9 mg/dL 2017 Unknown COMPREHENSIVE METABOLIC 43398 POTASSIUM 4.1 mmol/L 06/30 Unknown COMPREHENSIVE METABOLIC 83669 Total Protein 8.0 g/dL Unknown COMPREHENSIVE METABOLIC 55278 Glucose 87 mg/dL 2017 Unknown COMPREHENSIVE METABOLIC 10942 Bicarbonate 27 mmol/L 06/18 Unknown COMPREHENSIVE METABOLIC 38915 AGAP 10 mmol/L 2017 Unknown GFR CALC 6483720 GFR AA >60 ML/MIN 12/19/2013 Unknown GFR CALC 5641840 GFR NON-AA >60 ML/MIN 12/19/2013 Unknown LIPID GROUP 38042 HDL TEST 52 MG/DL 12/19/2013 Unknown LIPID GROUP 04431 TRIG 96 MG/DL 12/19/2013 Unknown [facility] 41516 TEST LDL 98 MG/DL 12/19/2013 Unknown LIPID GROUP 63262 CHOL 169 MG/DL 12/19/2013 Unknown LIPID GROUP 89548 RCHOL/HDL 3.25 RATIO 12/19/2013 Unknow n LIPID GROUP 97060 NON-HDL CH 117 MG/DL 12/19/2013 Unknow n COMPLETE BLOOD COUNT 0108696 WBC 5.6 10e9/L 12/20/19 14 Unknown COMPLETE BLOOD COUNT 0340358 RBC 4.45 10e12/L 2013 Unknown COMPLETE BLOOD COUNT 2948794 HGB 13.0 g/dL 4 Unknown COMPLETE BLOOD COUNT 0526377 HCT DET 39.9 % 4 Unknown COMPLETE BLOOD COUNT 8384160 MCV 89.7 fL 4 Unknown COMPLETE BLOOD COUNT 4763925 MCH 29.2 pg 4 Unknown COMPLETE BLOOD COUNT 8597344 MCHC 32.6 g/dL 4 Unknown COMPLETE BLOOD COUNT 9826845 PLT 244 10e9/L 12/20/19 14 Unknown COMPLETE BLOOD COUNT 6149733 MPV 9.4 fL 4 Unknown COMPLETE BLOOD COUNT 2041805 PABLITO % 58.5 % 4 Unknown COMPLETE BLOOD COUNT 8484950 LY % 30.8 % 4 Unknown COMPLETE BLOOD COUNT 0941841 MON % 8.2 % 4 Unknown COMPLETE BLOOD COUNT 7161830 EOS % 2.0 % 4 Unknown COMPLETE BLOOD COUNT 2746124 BASO % 0.5 % 4 Unknown COMPLETE BLOOD COUNT 4234406 RDW 13.6 % 4 Unknown COMPLETE BLOOD COUNT 0404062 ABS PABLITO 3.28 10e9/L 014 Unknown COMPLETE BLOOD COUNT 1089064 ABS LYMPH 1.72 10e9/L 014 Unknown COMPLETE BLOOD COUNT 6686907 ABS MONO 0.46 10e9/L 014 Unknown COMPLETE BLOOD COUNT 8316591 ABS EOS 0.11 10e9/L 014 Unknown COMPLETE BLOOD COUNT 6562749 ABS BASO 0.03 10e9/L 014 Unknown COMPLETE BLOOD COUNT 0281360 RDW-SD 43.6 fL 4 Unknown FREE T4 01714 FREE T4 1.26 NG/DL 12/19/2013 Unknown COMPREHENSIVE METABOLIC 04650 AST 18 U/L 2013 Unknown COMPREHENSIVE METABOLIC 53018 ALT 22 IU/L 2013 Unknown COMPREHENSIVE METABOLIC 07187 BUN 11 MG/DL 2013 Unknown COMPREHENSIVE METABOLIC 08922 ALBUMIN 4.7 GM/DL 2013 Unknown COMPREHENSIVE METABOLIC 96159 CHLORIDE 108 MMOL/L 12/19 Unknown COMPREHENSIVE METABOLIC 40305 BILI TOT 0.3 MG/DL 2013 Unknown COMPREHENSIVE METABOLIC 85114 ALK PHOS 67 U/L 2013 Unknown COMPREHENSIVE METABOLIC 92344 SODIUM 141 MMOL/L 12/19 Unknown COMPREHENSIVE METABOLIC 97002 CREATININE 0.67 MG/DL 08/2013 Unknown COMPREHENSIVE METABOLIC 29593 CALCIUM 9.4 MG/DL 2013 Unknown COMPREHENSIVE METABOLIC 72425 POTASSIUM 4.1 MMOL/L 12/19 Unknown COMPREHENSIVE METABOLIC 80390 PROT TOT 7.0 GM/DL 2013 Unknown COMPREHENSIVE METABOLIC 97329 Glucose 94 MG/DL 2013 Unknown COMPREHENSIVE METABOLIC 47948 BICARB 27 MMOL/L 2013 Unknown COMPREHENSIVE METABOLIC 11002 ANION GAP 6 MEQ/L 2013 Unknown THYROID STIMULATING HORMONE 56477 TSH 0.547 uIU/ML 12/19/2013 Unknown GFR CALC 0478148 GFR AA >60 ML/MIN 02/03/2011 Unknown GFR CALC 7466816 GFR NON-AA >60 ML/MIN 02/03/2011 Unknown THYROID STIMULATING HORMONE 01679 TSH 0.818 uIU/ML 02/03/2011 Unknown COMPLETE BLOOD COUNT 30626 WBC 7.7 10e9/L 02/04/20 11 Unknown COMPLETE BLOOD COUNT 12458 RBC 4.23 10e12/L 2010 Unknown COMPLETE BLOOD COUNT 70607 HGB 11.9 g/dL 1 Unknown COMPLETE BLOOD COUNT 61359 HCT DET 36.5 % 1 Unknown COMPLETE BLOOD COUNT 52979 MCV 86.3 fL 1 Unknown COMPLETE BLOOD COUNT 03852 MCH 28.1 pg 1 Unknown COMPLETE BLOOD COUNT 75721 MCHC 32.6 g/dL 1 Unknown COMPLETE BLOOD COUNT 15481 PLT 244 10e9/L 02/04/20 11 Unknown COMPLETE BLOOD COUNT 00682 MPV 8.7 fL 1 Unknown COMPLETE BLOOD COUNT 47769 PABLITO % 58.9 % 1 Unknown COMPLETE BLOOD COUNT 10931 LY % 31.1 % 1 Unknown COMPLETE BLOOD COUNT 79567 MON % 7.9 % 1 Unknown COMPLETE BLOOD COUNT 28716 EOS % 1.8 % 1 Unknown COMPLETE BLOOD COUNT 48508 BASO % 0.3 % 1 Unknown COMPLETE BLOOD COUNT 74036 RDW 14.7 % 1 Unknown COMPLETE BLOOD COUNT 76090 ABS PABLITO 4.54 10e9/L 011 Unknown COMPLETE BLOOD COUNT 69249 ABS LYMPH 2.39 10e9/L 011 Unknown COMPLETE BLOOD COUNT 09296 ABS MONO 0.61 10e9/L 011 Unknown COMPLETE BLOOD COUNT 56497 ABS EOS 0.14 10e9/L 011 Unknown COMPLETE BLOOD COUNT 66138 ABS BASO 0.02 10e9/L 011 Unknown COMPLETE BLOOD COUNT 50838 RDW-SD 45.1 fL 1 Unknown COMPREHENSIVE METABOLIC 37202 AST 16 U/L 2010 Unknown COMPREHENSIVE METABOLIC 00116 ALT 21 IU/L 2010 Unknown COMPREHENSIVE METABOLIC 28018 BUN 9 MG/DL 2010 Unknown COMPREHENSIVE METABOLIC 45657 ALBUMIN 4.5 GM/DL 2010 Unknown COMPREHENSIVE METABOLIC 61078 CHLORIDE 104 MMOL/L 02/03 Unknown COMPREHENSIVE METABOLIC 93319 BILI TOT 0.2 MG/DL 2010 Unknown COMPREHENSIVE METABOLIC 39743 ALK PHOS 65 U/L 2010 Unknown COMPREHENSIVE METABOLIC 18542 SODIUM 137 MMOL/L 02/03 Unknown COMPREHENSIVE METABOLIC 10545 CREATININE 0.64 MG/DL 01/16 Unknown COMPREHENSIVE METABOLIC 83144 CALCIUM 8.8 MG/DL 2010 Unknown COMPREHENSIVE METABOLIC 89505 POTASSIUM 3.8 MMOL/L 02/03 Unknown COMPREHENSIVE METABOLIC 09030 PROT TOT 6.7 GM/DL 2010 Unknown COMPREHENSIVE METABOLIC 02077 Glucose 88 MG/DL 2010 Unknown COMPREHENSIVE METABOLIC 32146 BICARB 26 MMOL/L 2010 Unknown COMPREHENSIVE METABOLIC 02875 ANION GAP 7 MEQ/L 2010 Unknown FREE T4 50452 FREE T4 1.24 NG/DL 02/03/2011 Unknown Procedures Procedure Codes Date CEFTRIAXONE SODIUM INJECTION CPT-4: J0696 05/04/2019 THER/PROPH/DIAG INJ SC/IM CPT-4: 03211 05/04/2019 CEFTRIAXONE SODIUM INJECTION CPT-4: J0696 05/03/2019 THER/PROPH/DIAG INJ SC/IM CPT-4: 77039 05/03/2019 CEFTRIAXONE SODIUM INJECTION CPT-4: J0696 05/02/2019 THER/PROPH/DIAG INJ SC/IM CPT-4: 26943 05/02/2019 DEXAMETHASONE SODIUM PHOS CPT-4: J1100 10/19/2018 THER/PROPH/DIAG INJ SC/IM CPT-4: 32309 10/19/2018 URINE CULTURE/ COLONY COUNT CPT-4: 03629 10/19/2018 URINALYSIS NONAUTO W/O SCOPE CPT-4: 98977 10/19/2018 THROAT CULTURE CPT-4: 44031 07/29/2018 STREP A ASSAY W/OPTIC CPT-4: 38424 07/26/2018 SPECIMEN HANDLING OFFICE-LAB CPT-4: 77955 07/06/2018 OCCULT BLOOD FECES CPT-4: 67270 07/06/2018 ROUTINE VENIPUNCTURE CPT-4: 40398 12/19/2013 ASSAY OF FREE THYROXINE CPT-4: 98364 12/19/2013 ASSAY THYROID STIM HORMONE CPT-4: 40790 12/19/2013 COMPREHEN METABOLIC PANEL CPT-4: 41359 12/19/2013 COMPLETE CBC W/AUTO DIFF WBC CPT-4: 64877 12/19/2013 LIPID PANEL CPT-4: 72816 12/19/2013 OCCULT BLOOD FECES CPT-4: 08317 02/03/2011 SPECIMEN HANDLING OFFICE-LAB CPT-4: 20279 12/25/2009 OCCULT BLOOD FECES CPT-4: 90456 12/25/2009 Vital Signs Date Vital 05/04/2019 Blood [...] 1: 130/78 Code: 8480-6 BMI: 30.7 Code: 91511-7 Heart Rate 1: 76 bpm Height: 5'9" Respiratory Rate: 20 bpm Temperature: 36 .8 (C) / 98.3 (F) Weight: 208 lbs 06/30/2017 Blood Pressure 1: 126/80 Code: 8480-6 BMI: 30.9 Code: 54844-8 Heart Rate 1: 72 bpm Height: 5'9" Respiratory Rate: 20 bpm Temperature: 36 .7 (C) / 98.0 (F) Weight: 209 lbs 02/04/2016 Blood Pressure 1: 122/80 Code: 8480-6 BMI: 31.3 Code: 03534-1 Heart Rate 1: 80 bpm Height: 5'9" Respiratory Rate: 20 bpm Temperature: 36 .6 (C) / 97.8 (F) Weight: 212 lbs 12/19/2013 Blood Pressure 1: 116/78 Code: 8480-6 BMI: 30.1 Code: 04923-5 Heart Rate 1: 76 bpm Height: 5'9" Respiratory Rate: 20 bpm Temperature: 36 .8 (C) / 98.3 (F) Weight: 204 lbs 10/27/2012 Blood Pressure 1: 114/70 Code: 8480-6 BMI: 30.3 Code: 04049-4 Heart Rate 1: 68 bpm Height: 5'9" Respiratory Rate: 20 bpm Temperature: 36 .8 (C) / 98.3 (F) Weight: 205 lbs 09/01/2012 Blood Pressure 1: 118/82 Code: 8480-6 BMI: 30.9 Code: 38858-0 Heart Rate 1: 80 bpm Height: 5'9" Respiratory Rate: 20 bpm Temperature: 36 .8 (C) / 98.2 (F) Weight: 209 lbs 02/03/2011 Blood Pressure 1: 118/76 Code: 8480-6 BMI: 29.5 Code: 70941-3 Heart Rate 1: 72 bpm Height: 5'9" Weight: 200 lbs 12/25/2009 Blood Pressure 1: 122/76 Code: 8480-6 BMI: 29.5 Code: 79932-6 Heart Rate 1: 80 bpm Height: 5'9" [...] 11/24 Encounters Encounter Performer Location Codes Date ([id number]) OFFICE/OUTPATIENT VISIT EST Diagnosis: Cellulitis of right breast[ICD10: N61.0] Josesito DEL ROSARIO DO [facility] CPT-4: 16016 05/04/2019 ([id number]) OFFICE/OUTPATIENT VISIT EST Diagnosis: Cellulitis of right breast[ICD10: N61.0] Josesito DEL ROSARIO DO [facility] CPT-4: 25111 05/03/2019 ([id number]) OFFICE/OUTPATIENT VISIT EST Diagnosis: Cellulitis of right breast[ICD10: N61.0] Josesito DEL ROSARIO DO [facility] CPT-4: 37230 05/02/2019 ([id number]) OFFICE/OUTPATIENT VISIT EST Diagnosis: Edema, unspecified[ICD10: R60.9] Diagnosis: Adverse effect of unspecified drugs, medicaments and biological substances, initial encounter[ICD10: T50.905A] Diagnosis: Gross hematuria[ICD10: R31.0] Josesito DEL ROSARIO DO [facility] CPT-4: 81323 10/19/2018 ([id number]) OFFICE/OUTPATIENT VISIT EST Diagnosis: URI, ACUTE[ICD10: J06.9] Josesito SHIELDS [facility] CPT-4: 60449 07/29/2018 ([id number]) OFFICE/OUTPATIENT VISIT EST Diagnosis: Acute pharyngitis, unspecified[ICD10: J02.9] Diagnosis: URI, ACUTE[ICD10: J06.9] Josesito SHIELDS [facility] CPT-4: 05620 07/26/2018 ([id number]) PREV VISIT EST AGE 40-64 Diagnosis: Encounter for general adult medical examination without abnormal findings[ICD10: Z00.00] Diagnosis: Encounter for gynecological examination (general) (routine) without abnormal findings[ICD10: Z01.419] Diagnosis: Menopausal and female climacteric states[ICD10: N95.1] Diagnosis: Other abnormal and inconclusive findings on diagnostic imaging of breast[ICD10: R92.8] Josesito DEL ROSARIO DO [facility] CPT-4: 83364 07/06/2018 ([id number]) PREV VISIT EST AGE 40-64 Diagnosis: Encounter for general adult medical examination without abnormal findings[ICD10: Z00.00] Diagnosis: Encounter for gynecological examination (general) (routine) without abnormal findings[ICD10: Z01.419] Josesito Lund DO [facility] CPT-4: 69563 06/30/2017 ([id number]) PREV VISIT EST AGE 40-64 Diagnosis: Encounter for general adult medical examination without abnormal findings[ICD10: Z00.00] Josesito DEL ROSARIO DO [facility] CPT-4: 97075 02/04/2016 ([id number]) PREV VISIT EST AGE 40-64 Diagnosis: ROUTINE MEDICAL EXAM[ICD9: V70.0] Diagnosis: MENOPAUSAL DISORDER[ICD9: 627.9] Josesito DEL ROSARIO DO [facility] CPT-4: 55800 12/19/2013 OFFICE/OUTPATIENT VISIT EST Diagnosis: MENOPAUSAL DISORDER[ICD9: 627.9] Josesito DEL ROSARIO DO [facility] CPT-4: 98331 10/27/2012 ([id number]) PREV VISIT EST AGE 40-64 Diagnosis: ROUTINE MEDICAL EXAM[ICD9: V70.0] Diagnosis: MENOPAUSAL DISORDER[ICD9: 627.9] Josesito DEL ROSARIO DO [facility] CPT-4: 11634 09/01/2012 PREV VISIT EST AGE 40-64 Diagnosis: ROUTINE GYNE EXAM[ICD9: V72.31] Diagnosis: ROUTINE MEDICAL EXAM[ICD9: V70.0] Josesito DEL ROSARIO DO [facility] CPT-4: 72295 02/03/2011 SPECIMEN HANDLING Diagnosis: [ICD9: ] Diagnosis: [ICD9: ] Josesito DEL ROSARIO DO [facility] CPT-4: 9900 0 02/03/2011 ([id number]) PREV VISIT, EST, AGE 40-64 Josesito MARQUEZNE Scotty DEL ROSARIO DO [facility] CPT-4: 12178 12/25/2009 Plan of Care Planned Activity Notes [...] N61.0 05/03/2019 Appointment[facility] [phone] [id number] [facility] 05/03/2019 Visit Diagnosis Plan: Cellulitis of right breast Discu ssion: Rocephin 1gm IM now Start clindamycin with a probiotic Recheck tomorrow ICD-9 : 611.0 ICD-10 : N61.0 05/02/2019 Appointment: Josesito Del Rosariotel: [facility] [facility]LL[facility] 05/02/2019 Patient Education: clindamycin HCl- [employer] Coupon [id number] [email or web address] Completed 05/02/2019 Care Plan: TRANSVAGINAL US NON-OB LOINC : 47523-1 Pending 10/21/2018 Appointment: Josesito Del Rosario WPtel: [facility] [facility] WT CHECK 10/20/2018 Visit Diagnosis Plan: [...] R60.9 10/19/2018 Appointment: Josesito Del Rosario WPtel: [address] [place], [place] [id number] 10/19/2018 Appointment: Josesito Del Rosario WPtel: [address] [place], [place] [phone] Per CANCELED 08/02/2018 Visit Diagnosis Plan: URI, ACUTE Discussion: CXR negat johnna Lungs clear Only physical exam finding is injection on throat and mild fluid behind ears Will increase zyrtec to BID Throat Culture Notify surgeon of current course ICD-9 : 465.9 ICD-10 : J06.9 07/29/2018 Appointment: Josesito Del Rosario WPtel: [address] [place], [place] [id number] WORK IN 07/29/2018 Visit Diagnosis Plan: Acute pharyngitis, unspecified D iscussion: Strep Negative Cover with Zithromax with upcoming surgery next week but if worsens will let us know and will have to postpone surgery ICD-9 : 462 ICD-10 : J02.9 07/26/2018 Visit NOS Plan: Plan Notes: Supportive care. Rest, Fluids... 07/26/2018 Appointment: Josesito Del Rosario WPtel: [address] [place], [place] [id number] ACUTE ILLNESS 07/26/2018 Visit Diagnosis Plan: Encounter [...] N95.1 07/06/2018 Appointment: Josesito Del Rosario WPtel: [address] [place] [address] US PAP 07/06/2018 Care Plan: MAMMOGRAM BOTH BREASTS Diagnostic Mammogram of [place] Breast LOINC : 00673-4 Pending 06/24/2018 Care Plan: US EXAM CHEST [...] Z01.419 06/30/2017 Appointment: Josesito Del Rosario WPtel: [address] [place] [address] US PAP 06/30/2017 Patient Education: Patient Medication Summary Completed 06/30/2017 Visit Plan: Update fasting lab Pap done Had mammogram Weight bearing exercise 02/04/2016 Appointment: Josesito Del Rosario WPtel: [address] [place] [address] US 01/30 confirmed~sl PAP 02/04/2016 Patient Education: Patient Medication Summary Completed 02/04/2016 Appointment: Josesito Del Rosario WPtel: [address] [place] [address] US RESCHEDULED 01/17/2016 Patient Education: Patient Medication Summary Completed 12/31/2015 Care Plan: MAMMOGRAM SCREENING LOINC : 2 6347-5 Pending 12/31/2015 Visit Plan: Try to decrease fluoxetine t o 10mg daily Check Mammo Check fasting lab Check Colonoscopy due to family hx of Colon Cancer 12/19/2013 Appointment: Josesito Del Rosario WPtel: [address] [place], [place] [phone] 12/16 PAP 12/19/2013 Patient Education: Patient Medication Summary Completed 12/19/2013 Visit Plan: Long discussion about HRT--p t has Breast Ca on both sides--Discussed BRCA gene testing in Mom Will try higher dose of fluoxetine 10/27/2012 Appointment: Josesito Del Rosario WPtel: [address] [place], [place] [phone] FOLLOW UP 10/27/2012 Patient Education: Patient Medication Summary Completed 10/27/2012 Visit Plan: Lab discussed Add fish oil 3 grams daily Long discussion about hormones Trial of fluoxetine 09/01/2012 Appointment: Josesito Del Rosario WPtel: [address] [place], [place] [phone] PAP 09/01/2012 Patient Education: Patient Medication Summary Completed 09/01/2012 Visit Plan: Pap Done and Mammogram order ed Fasting lab ordered 02/03/2011 Appointment: Josesito Del Rosario WPtel: [address] [place], [place] [phone] US PAP 02/03/2011 Patient Education: Patient Medication Summary Completed 02/03/2011 Visit Plan: Pap done Mammo done last wee k Lab discussed Discussed Bioidentical Hormones 12/25/2009 Appointment: Josesito Del Rosario WPtel: [address] [place], [place] [phone] PAP 12/25/2009 Patient Education: Patient Medication Summary Completed 12/25/2009 Instructions Comment . Update fasting lab Pap done Had mammogram Weight bearing exercise . Try to decrease fluoxetine to 10mg kobe ly Check Mammo Check fasting lab Check Colonoscopy due to family hx of Colon Cancer . Long discussion about HRT--pt has [place] Ca on both sides--Discussed BRCA gene [...]
--- OUTSIDE RECORDS SUMMARY | 2019-05-15 23:42 | XMS REPORT | CCD ---
Author Author Caridad Del Rosario D.O. Organization [facility]AR[facility] Address [address] [place] [address] Phone Care Team Providers Care Lead Business Systems Analyst Name Role Phone PP Unavailable CCM Unavailable Summary Purpose Interface Exchange Insurance Providers Payer name Policy type / Coverage type Covered green party ID Effective Begin Date Effective End Date [facility] Commercial Insurance [id number] Un known Family History Family History data [...] Instructions clindamycin HCl 300 mg capsule RxNorm: 396338 1 Capsule (s) Oral three times a day 05/02/2019 05/09/2019 Active fluoxetine 20 mg tablet RxNorm: 917137 1 Tablet(s) Oral QD 03/29/20 19 09/24/2019 Active Zithromax Z-Khoi 250 mg tablet RxNorm: 345047 Tablet(s) Oral as directed 03/25/2019 03/25/2019 Inactive Zithromax Z-Khoi 250 mg tablet RxNorm: 198068 Tablet(s) Oral as directed 03/25/2019 03/24/2019 Inactive famotidine 20 mg tablet RxNorm: 497520 1 Tablet(s) PO BID 10/19/2018 02/15/2019 Inactive Tessalon Perles 100 mg capsule RxNorm: 535553 1 Capsule (s) PO TID as needed for cough 07/26/2018 10/18/2018 Inactive Zithromax 500 mg tablet RxNorm: 584092 1 Tablet(s) PO QD 07/26/2018 0 07/25/2018 Inactive Zithromax 500 mg tablet RxNorm: 589765 1 Tablet(s) PO QD 07/26/2018 0 07/30/2018 Inactive Xanax 0.25 mg tablet RxNorm: 196705 1/2-1 Tablet(s) PO BID 06/01/19 19 No Stop Date Active fluoxetine 20 mg tablet RxNorm: 351570 1 Tablet(s) PO Q D Due for annual appointment in 06/01/2018 02/25/2019 Inactive fluoxetine 20 mg tablet RxNorm: 693188 1 Tablet(s) PO Q D Due for annual in [facility] 06/01/2018 02/25/2019 Inactive fluoxetine 20 mg tablet RxNorm: 704018 1 Tablet(s) PO QD 08/05/2017 1 07/02/2017 Inactive fluoxetine 20 mg tablet RxNorm: 001909 1 Tablet(s) PO QD 08/04/2017 0 08/04/2017 Inactive Xanax 0.25 mg tablet RxNorm: 292746 1/2-1 Tablet(s) PO BID 07/02/19 18 05/31/2018 Inactive fluoxetine 10 mg capsule RxNorm: 184136 2 Capsule(s) PO QAM 018 07/05/2018 Inactive Generic For:PROZAC 10 MG PUL VULE 09/24/2015 10:15:02 AM N O T I C E Last quantity doesn't match original quantity fluoxetine 10 mg capsule RxNorm: 492231 2 Capsule(s) PO QAM Routine wellness due after 02-04-17 12/03/2016 03/02/2017 Inactive Generic For:PROZ AC 10 MG PULVULE 09/24/2015 10:15:02 AM N O T I C E Last quantity doesn't match original quantity Xanax 0.25 mg tablet RxNorm: 326188 1/2-1 Tablet(s) PO BID 02/05/20 16 07/01/2017 Inactive fluoxetine 10 mg capsule RxNorm: 608602 2 Capsule(s) PO QAM 016 07/25/2018 Inactive fluoxetine 10 mg capsule RxNorm: 752270 2 Capsule(s) PO QAM 016 12/03/2016 Inactive Generic For:PROZAC 10 MG PUL VULE 09/24/2015 10:15:02 AM N O T I C E Last quantity doesn't match original quantity fluoxetine 10 mg capsule RxNorm: 631069 2 Capsule(s) PO QAM TAKE 2 CAPSULES BY MOUTH EVERY MORNING 11/16/2015 02/03/2016 Inactive Generic For: PROZAC 10 MG PULVULE 09/24/2015 10:15:02 AM N O T I C E Last quantity doesn't match original quantity fluoxetine 10 mg capsule RxNorm: 396610 2 Capsule(s) PO QAM TAKE 2 CAPSULES BY MOUTH EVERY MORNING 09/24/2015 11/15/2015 Inactive Generic For: PROZAC 10 MG PULVULE 09/24/2015 10:15:02 AM N O T I C E Last quantity doesn't match original quantity fluoxetine 10 mg capsule RxNorm: 232590 2 Capsule(s) PO QAM 015 09/24/2015 Inactive fluoxetine 10 mg capsule RxNorm: 402307 2 Capsule(s) PO QAM 015 07/28/2018 Inactive fluoxetine 10 mg capsule RxNorm: 805169 2 Capsule(s) PO QAM 014 05/21/2014 Inactive Xanax 0.25 mg tablet RxNorm: 415246 1/2-1 Tablet(s) PO BID 04/21/20 13 No Stop Date Active fluoxetine 10 mg capsule RxNorm: 526761 2 Capsule(s) PO QAM 013 01/24/2013 Inactive fluoxetine 10 mg capsule RxNorm: 324389 1 Capsule(s) PO QAM 013 10/26/2012 Inactive Multivitamin & Mineral Formula Tab RxNorm: 1 Tablet(s) PO QD No St art Date Active Zyrtec 10 mg tablet RxNorm: 7762268 1 Tablet(s) PO BID No Start Date Active Prilosec OTC 20 mg tablet,delayed release RxNorm: 086140 1 Tabl et(s) PO QD No Start Date Active Tessalon Perles 100 mg capsule RxNorm: 507489 1 Capsule (s) PO TID as needed for cough No Start Date 07/25/2018 Inactive Biotin Oral RxNorm: Oral No Start Date 10/18/2018 Inactive Zithromax Z-Khoi oral RxNorm: 62903 oral No Start Date 03/24/2019 Inactive Echinacea ACZ oral RxNorm: oral No Start Date 07/28/2018 Inacti ve Vitamin D3 1000 units Capsule RxNorm: 1 Capsule(s) PO QD No St art Date 07/28/2018 Inactive Black Cohosh Oral RxNorm: Oral No Start Date 07/28/2018 Inactiv e Xanax 0.25 mg tablet RxNorm: 262468 1/2-1 Tablet(s) PO BID No Start Date 04/20/2013 Inactive Zyrtec 10 mg tablet RxNorm: 1757391 1 Tablet(s) PO QD as needed No Start Date 10/18/2018 Inactive Vitamin C 1,000 mg tablet RxNorm: 517119 1 Tablet(s) PO QD No Start Date 10/18/2018 Inactive fluoxetine 20 mg tablet RxNorm: 067963 1 Tablet(s) PO QD No Start D ate 08/03/2017 Inactive Medication Administered No Medication Administered data Immunizations Vaccine Codes Date Status Influenza CVX: 141 04/08/2019 Influenza CVX: 141 04/26/2018 Results Observation Observation Code Item Item Code Result Date S ervice Location CULTURE, URINE, ROUTINE 395 CULTURE, URINE, ROUTINE 10/20/2018 [facility] [address] [place] [address] GFR CALC 2611293 GFR Non Afr Amr >60 mL/min 07/05/2018 Un known GFR CALC 8632969 GFR Afr Amr >60 mL/min 07/05/2018 Unknow n FREE T4 81357 T4 Free 0.94 ng/dL 07/05/2018 Unknown [facility] 03900 Cholesterol 165 mg/dL 07/05/2018 Unkno wn [facility] 65539 Triglyceride 108 mg/dL 07/05/2018 Unkn own [facility] 26239 HDL CHOLESTEROL 50 mg/dL 07/05/2018 U nknown [facility] 55098 Chol/HDL Ratio 3.30 ratio 07/05/2018 U nknown [facility] 99057 NON-HDL Chol 115 mg/dL 07/05/2018 Unkn own [facility] 90027 LDL Cholesterol 93 mg/dL 07/05/2018 U nknown THYROID STIMULATING HORMONE 78810 TSH 0.937 uIU/mL 07/05/2018 Unknown COMPREHENSIVE METABOLIC 99943 AST 19 U/L 2018 Unknown COMPREHENSIVE METABOLIC 27435 ALT 21 U/L 2018 Unknown COMPREHENSIVE METABOLIC 28393 BUN 10 mg/dL 2018 Unknown COMPREHENSIVE METABOLIC 58603 ALBUMIN 4.3 g/dL 2018 Unknown COMPREHENSIVE METABOLIC 01906 CHLORIDE 106 mmol/L 07/05 Unknown COMPREHENSIVE METABOLIC 47121 Bili Total 0.3 mg/dL 07/05 Unknown COMPREHENSIVE METABOLIC 52561 ALK PHOS 59 U/L 2018 Unknown COMPREHENSIVE METABOLIC 23617 SODIUM 140 mmol/L 07/05 Unknown COMPREHENSIVE METABOLIC 42525 CREATININE 0.68 mg/dL 06/18 Unknown COMPREHENSIVE METABOLIC 96594 CALCIUM 9.2 mg/dL 2018 Unknown COMPREHENSIVE METABOLIC 79751 POTASSIUM 4.0 mmol/L 07/05 Unknown COMPREHENSIVE METABOLIC 64292 Total Protein 7.1 g/dL Unknown COMPREHENSIVE METABOLIC 22840 Glucose 84 mg/dL 2018 Unknown COMPREHENSIVE METABOLIC 37997 Bicarbonate 27 mmol/L 06/18 Unknown COMPREHENSIVE METABOLIC 37846 AGAP 7 mmol/L 2018 Unknown COMPLETE BLOOD COUNT 9723071 WBC 6.0 10e9/L 07/05/19 19 Unknown COMPLETE BLOOD COUNT [id number] RBC 4.36 10e12/L 2018 Unknown COMPLETE BLOOD COUNT 5715262 HEMOGLOBIN 12.9 g/dL 07/05/19 19 Unknown COMPLETE BLOOD COUNT [id number] HEMATOCRIT 39.1 % 07/05/19 19 Unknown COMPLETE BLOOD COUNT 0088972 MCV 89.7 fL 9 Unknown COMPLETE BLOOD COUNT 2824830 MCH 29.6 pg 9 Unknown COMPLETE BLOOD COUNT 8014215 MCHC 33.0 g/dL 9 Unknown COMPLETE BLOOD COUNT 0971200 PLATELET COUNT 270 10e9/L Unknown COMPLETE BLOOD COUNT 0502598 Mean Plt Volume 9.0 fL Unknown COMPLETE BLOOD COUNT 3630192 Neut Auto 53.8 % 9 Unknown COMPLETE BLOOD COUNT [id number] Lymph Auto 35.8 % 07/05/19 19 Unknown COMPLETE BLOOD COUNT 0970340 [place] Auto 7.9 % 9 Unknown COMPLETE BLOOD COUNT 8202798 RDW 13.9 % 9 Unknown COMPLETE BLOOD COUNT 7544992 Eos Auto 2.0 % 9 Unknown COMPLETE BLOOD COUNT 5819065 Baso Auto 0.5 % 9 Unknown COMPLETE BLOOD COUNT 3365954 Neutrophil Abs 3.23 10e9/L Unknown COMPLETE BLOOD COUNT 6463854 Lymphocyte Abs 2.15 10e9/L Unknown COMPLETE BLOOD COUNT [id number] Monocyte Abs 0.47 10e9/L 06/18 Unknown COMPLETE BLOOD COUNT 4528072 Eosinophil Abs 0.12 10e9/L Unknown COMPLETE BLOOD COUNT 8693906 RDW-SD 44.5 fL 9 Unknown COMPLETE BLOOD COUNT [id number] Basophil Abs 0.03 10e9/L 06/18 Unknown FREE T4 65408 T4 Free 1.21 ng/dL 06/30/2017 Unknown GFR CALC 2517083 GFR Non Afr Amr >60 mL/min 06/30/2017 Un known GFR CALC 1590373 GFR Afr Amr >60 mL/min 06/30/2017 Unknow n THYROID STIMULATING HORMONE 41735 TSH 0.873 uIU/mL 06/30/2017 Unknown LIP[facility] GROUP 02740 Cholesterol 175 mg/dL 06/30/2017 Unkno wn L[facility] GROUP 58939 Triglyceride 129 mg/dL 06/30/2017 Unkn own [facility] 89327 HDL CHOLESTEROL 51 06/30/2017 U nknown [facility] GROUP 64704 Chol/HDL Ratio 3.43 ratio 06/30/2017 U nknown L[facility] GROUP 27705 NON-HDL Chol 124 mg/dL 06/30/2017 Unkn own [facility] 27207 LDL Cholesterol 98 mg/dL 06/30/2017 U nknown COMPLETE BLOOD COUNT 0114543 WBC 6.2 10e9/L 06/30/19 18 Unknown COMPLETE BLOOD COUNT 6219672 RBC 4.58 10e12/L 2017 Unknown COMPLETE BLOOD COUNT 0322807 HEMOGLOBIN 13.3 g/dL 06/30/19 18 Unknown COMPLETE BLOOD COUNT 1917167 HEMATOCRIT 41.6 % 06/30/19 18 Unknown COMPLETE BLOOD COUNT 0515842 MCV 90.8 fL 8 Unknown COMPLETE BLOOD COUNT 2869833 MCH 29.0 pg 8 Unknown COMPLETE BLOOD COUNT 6562498 MCHC 32.0 g/dL 8 Unknown COMPLETE BLOOD COUNT 4660532 PLATELET COUNT 271 10e9/L Unknown COMPLETE BLOOD COUNT 3588030 Mean Plt Volume 8.9 fL Unknown COMPLETE BLOOD COUNT 4240528 Neut Auto 53.5 % 8 Unknown COMPLETE BLOOD COUNT 3583814 Lymph Auto 36.4 % 06/30/19 18 Unknown COMPLETE BLOOD COUNT 5221607 [place] Auto 8.1 % 8 Unknown COMPLETE BLOOD COUNT 0477974 RDW 13.4 % 8 Unknown COMPLETE BLOOD COUNT 7648333 Eos Auto 1.5 % 8 Unknown COMPLETE BLOOD COUNT 3119473 Baso Auto 0.5 % 8 Unknown COMPLETE BLOOD COUNT 6053135 Neutrophil Abs 3.32 10e9/L Unknown COMPLETE BLOOD COUNT 6885244 Lymphocyte Abs 2.26 10e9/L Unknown COMPLETE BLOOD COUNT 9059507 Monocyte Abs 0.50 10e9/L 06/18 Unknown COMPLETE BLOOD COUNT 3930749 Eosinophil Abs 0.09 10e9/L Unknown COMPLETE BLOOD COUNT 6329132 RDW-SD 43.9 fL 8 Unknown COMPLETE BLOOD COUNT 1436627 Basophil Abs 0.03 10e9/L 06/18 Unknown COMPREHENSIVE METABOLIC 45902 AST 19 U/L 2017 Unknown COMPREHENSIVE METABOLIC 18234 ALT 22 U/L 2017 Unknown COMPREHENSIVE METABOLIC 58525 BUN 12 mg/dL 2017 Unknown COMPREHENSIVE METABOLIC 15466 ALBUMIN 4.9 g/dL 2017 Unknown COMPREHENSIVE METABOLIC 11914 CHLORIDE 106 mmol/L 06/30 Unknown COMPREHENSIVE METABOLIC 57051 Bili Total 0.4 mg/dL 06/30 Unknown COMPREHENSIVE METABOLIC 61738 ALK PHOS 66 U/L 2017 Unknown COMPREHENSIVE METABOLIC 43039 SODIUM 143 mmol/L 06/30 Unknown COMPREHENSIVE METABOLIC 09012 CREATININE 0.71 mg/dL 06/18 Unknown COMPREHENSIVE METABOLIC 09647 CALCIUM 9.9 mg/dL 2017 Unknown COMPREHENSIVE METABOLIC 72615 POTASSIUM 4.1 mmol/L 06/30 Unknown COMPREHENSIVE METABOLIC 24673 Total Protein 8.0 g/dL Unknown COMPREHENSIVE METABOLIC 30027 Glucose 87 mg/dL 2017 Unknown COMPREHENSIVE METABOLIC 43072 Bicarbonate 27 mmol/L 06/18 Unknown COMPREHENSIVE METABOLIC 85234 AGAP 10 mmol/L 2017 Unknown GFR CALC 4696222 GFR AA >60 ML/MIN 12/19/2013 Unknown GFR CALC 4537631 GFR NON-AA >60 ML/MIN 12/19/2013 Unknown LIPID GROUP 52846 HDL TEST 52 MG/DL 12/19/2013 Unknown LIPID GROUP 21435 TRIG 96 MG/DL 12/19/2013 Unknown LIPID GROUP 03035 TEST LDL 98 MG/DL 12/19/2013 Unknown LIPID GROUP 62111 CHOL 169 MG/DL 12/19/2013 Unknown LIPID GROUP 61605 RCHOL/HDL 3.25 RATIO 12/19/2013 Unknow n LIPID GROUP 69018 NON-HDL CH 117 MG/DL 12/19/2013 Unknow n COMPLETE BLOOD COUNT 3359899 WBC 5.6 10e9/L 12/20/19 14 Unknown COMPLETE BLOOD COUNT 3596213 RBC 4.45 10e12/L 2013 Unknown COMPLETE BLOOD COUNT 6857675 HGB 13.0 g/dL 4 Unknown COMPLETE BLOOD COUNT 6148934 HCT DET 39.9 % 4 Unknown COMPLETE BLOOD COUNT 4267906 MCV 89.7 fL 4 Unknown COMPLETE BLOOD COUNT 4131490 MCH 29.2 pg 4 Unknown COMPLETE BLOOD COUNT 2153944 MCHC 32.6 g/dL 4 Unknown COMPLETE BLOOD COUNT 4253438 PLT 244 10e9/L 12/20/19 14 Unknown COMPLETE BLOOD COUNT 0291344 MPV 9.4 fL 4 Unknown COMPLETE BLOOD COUNT 0366596 PABLITO % 58.5 % 4 Unknown COMPLETE BLOOD COUNT 7666458 LY % 30.8 % 4 Unknown COMPLETE BLOOD COUNT 4723344 MON % 8.2 % 4 Unknown COMPLETE BLOOD COUNT 4107011 EOS % 2.0 % 4 Unknown COMPLETE BLOOD COUNT 7726277 BASO % 0.5 % 4 Unknown COMPLETE BLOOD COUNT 7325705 RDW 13.6 % 4 Unknown COMPLETE BLOOD COUNT 8930170 ABS PABLITO 3.28 10e9/L 014 Unknown COMPLETE BLOOD COUNT 5232497 ABS LYMPH 1.72 10e9/L 014 Unknown COMPLETE BLOOD COUNT 0074915 ABS MONO 0.46 10e9/L 014 Unknown COMPLETE BLOOD COUNT 2140392 ABS EOS 0.11 10e9/L 014 Unknown COMPLETE BLOOD COUNT 5967232 ABS BASO 0.03 10e9/L 014 Unknown COMPLETE BLOOD COUNT 8822804 RDW-SD 43.6 fL 4 Unknown FREE T4 29405 FREE T4 1.26 NG/DL 12/19/2013 Unknown COMPREHENSIVE METABOLIC 33259 AST 18 U/L 2013 Unknown COMPREHENSIVE METABOLIC 15806 ALT 22 IU/L 2013 Unknown COMPREHENSIVE METABOLIC 14281 BUN 11 MG/DL 2013 Unknown COMPREHENSIVE METABOLIC 50459 ALBUMIN 4.7 GM/DL 2013 Unknown COMPREHENSIVE METABOLIC 01857 CHLORIDE 108 MMOL/L 12/19 Unknown COMPREHENSIVE METABOLIC 46147 BILI TOT 0.3 MG/DL 2013 Unknown COMPREHENSIVE METABOLIC 59818 ALK PHOS 67 U/L 2013 Unknown COMPREHENSIVE METABOLIC 52184 SODIUM 141 MMOL/L 12/19 Unknown COMPREHENSIVE METABOLIC 33740 CREATININE 0.67 MG/DL 08/2013 Unknown COMPREHENSIVE METABOLIC 49004 CALCIUM 9.4 MG/DL 2013 Unknown COMPREHENSIVE METABOLIC 10339 POTASSIUM 4.1 MMOL/L 12/19 Unknown COMPREHENSIVE METABOLIC 22894 PROT TOT 7.0 GM/DL 2013 Unknown COMPREHENSIVE METABOLIC 11873 Glucose 94 MG/DL 2013 Unknown COMPREHENSIVE METABOLIC 68096 BICARB 27 MMOL/L 2013 Unknown COMPREHENSIVE METABOLIC 91495 ANION GAP 6 MEQ/L 2013 Unknown THYROID STIMULATING HORMONE 74249 TSH 0.547 uIU/ML 12/19/2013 Unknown GFR CALC 4965093 GFR AA >60 ML/MIN 02/03/2011 Unknown GFR CALC 9783892 GFR NON-AA >60 ML/MIN 02/03/2011 Unknown THYROID STIMULATING HORMONE 75466 TSH 0.818 uIU/ML 02/03/2011 Unknown COMPLETE BLOOD COUNT 48493 WBC 7.7 10e9/L 02/04/20 11 Unknown COMPLETE BLOOD COUNT 99229 RBC 4.23 10e12/L 2010 Unknown COMPLETE BLOOD COUNT 84269 HGB 11.9 g/dL 1 Unknown COMPLETE BLOOD COUNT 59417 HCT DET 36.5 % 1 Unknown COMPLETE BLOOD COUNT 54952 MCV 86.3 fL 1 Unknown COMPLETE BLOOD COUNT 17591 MCH 28.1 pg 1 Unknown COMPLETE BLOOD COUNT 06454 MCHC 32.6 g/dL 1 Unknown COMPLETE BLOOD COUNT 36608 PLT 244 10e9/L 02/04/20 11 Unknown COMPLETE BLOOD COUNT 24462 MPV 8.7 fL 1 Unknown COMPLETE BLOOD COUNT 31557 PABLITO % 58.9 % 1 Unknown COMPLETE BLOOD COUNT 53316 LY % 31.1 % 1 Unknown COMPLETE BLOOD COUNT 95042 MON % 7.9 % 1 Unknown COMPLETE BLOOD COUNT 41649 EOS % 1.8 % 1 Unknown COMPLETE BLOOD COUNT 34023 BASO % 0.3 % 1 Unknown COMPLETE BLOOD COUNT 22444 RDW 14.7 % 1 Unknown COMPLETE BLOOD COUNT 57747 ABS PABLITO 4.54 10e9/L 011 Unknown COMPLETE BLOOD COUNT 07768 ABS LYMPH 2.39 10e9/L 011 Unknown COMPLETE BLOOD COUNT 42383 ABS MONO 0.61 10e9/L 011 Unknown COMPLETE BLOOD COUNT 36909 ABS EOS 0.14 10e9/L 011 Unknown COMPLETE BLOOD COUNT 93263 ABS BASO 0.02 10e9/L 011 Unknown COMPLETE BLOOD COUNT 88483 RDW-SD 45.1 fL 1 Unknown COMPREHENSIVE METABOLIC 76571 AST 16 U/L 2010 Unknown COMPREHENSIVE METABOLIC 28818 ALT 21 IU/L 2010 Unknown COMPREHENSIVE METABOLIC 60813 BUN 9 MG/DL 2010 Unknown COMPREHENSIVE METABOLIC 97295 ALBUMIN 4.5 GM/DL 2010 Unknown COMPREHENSIVE METABOLIC 68964 CHLORIDE 104 MMOL/L 02/03 Unknown COMPREHENSIVE METABOLIC 69514 BILI TOT 0.2 MG/DL 2010 Unknown COMPREHENSIVE METABOLIC 30477 ALK PHOS 65 U/L 2010 Unknown COMPREHENSIVE METABOLIC 30398 SODIUM 137 MMOL/L 02/03 Unknown COMPREHENSIVE METABOLIC 80874 CREATININE 0.64 MG/DL 01/16 Unknown COMPREHENSIVE METABOLIC 33387 CALCIUM 8.8 MG/DL 2010 Unknown COMPREHENSIVE METABOLIC 35311 POTASSIUM 3.8 MMOL/L 02/03 Unknown COMPREHENSIVE METABOLIC 38617 PROT TOT 6.7 GM/DL 2010 Unknown COMPREHENSIVE METABOLIC 94151 Glucose 88 MG/DL 2010 Unknown COMPREHENSIVE METABOLIC 70504 BICARB 26 MMOL/L 2010 Unknown COMPREHENSIVE METABOLIC 69060 ANION GAP 7 MEQ/L 2010 Unknown FREE T4 28755 FREE T4 1.24 NG/DL 02/03/2011 Unknown Procedures Procedure Codes Date CEFTRIAXONE SODIUM INJECTION CPT-4: J0696 05/04/2019 THER/PROPH/DIAG INJ SC/IM CPT-4: 36944 05/04/2019 CEFTRIAXONE SODIUM INJECTION CPT-4: J0696 05/03/2019 THER/PROPH/DIAG INJ SC/IM CPT-4: 17819 05/03/2019 CEFTRIAXONE SODIUM INJECTION CPT-4: J0696 05/02/2019 THER/PROPH/DIAG INJ SC/IM CPT-4: 07874 05/02/2019 DEXAMETHASONE SODIUM PHOS CPT-4: J1100 10/19/2018 THER/PROPH/DIAG INJ SC/IM CPT-4: 69774 10/19/2018 URINE CULTURE/ COLONY COUNT CPT-4: 90414 10/19/2018 URINALYSIS NONAUTO W/O SCOPE CPT-4: 78311 10/19/2018 THROAT CULTURE CPT-4: 49902 07/29/2018 STREP A ASSAY W/OPTIC CPT-4: 35615 07/26/2018 SPECIMEN HANDLING OFFICE-LAB CPT-4: 29384 07/06/2018 OCCULT BLOOD FECES CPT-4: 21574 07/06/2018 ROUTINE VENIPUNCTURE CPT-4: 33390 12/19/2013 ASSAY OF FREE THYROXINE CPT-4: 30626 12/19/2013 ASSAY THYROID STIM HORMONE CPT-4: 48952 12/19/2013 COMPREHEN METABOLIC PANEL CPT-4: 96996 12/19/2013 COMPLETE CBC W/AUTO DIFF WBC CPT-4: 42008 12/19/2013 LIPID PANEL CPT-4: 21074 12/19/2013 OCCULT BLOOD FECES CPT-4: 39858 02/03/2011 SPECIMEN HANDLING OFFICE-LAB CPT-4: 56904 12/25/2009 OCCULT BLOOD FECES CPT-4: 18116 12/25/2009 Vital Signs Date Vital 05/04/2019 Blood [...] 1: 130/78 Code: 8480-6 BMI: 30.7 Code: 87937-9 Heart Rate 1: 76 bpm Height: 5'9" Respiratory Rate: 20 bpm Temperature: 36 .8 (C) / 98.3 (F) Weight: 208 lbs 06/30/2017 Blood Pressure 1: 126/80 Code: 8480-6 BMI: 30.9 Code: 93950-8 Heart Rate 1: 72 bpm Height: 5'9" Respiratory Rate: 20 bpm Temperature: 36 .7 (C) / 98.0 (F) Weight: 209 lbs 02/04/2016 Blood Pressure 1: 122/80 Code: 8480-6 BMI: 31.3 Code: 16732-7 Heart Rate 1: 80 bpm Height: 5'9" Respiratory Rate: 20 bpm Temperature: 36 .6 (C) / 97.8 (F) Weight: 212 lbs 12/19/2013 Blood Pressure 1: 116/78 Code: 8480-6 BMI: 30.1 Code: 47968-9 Heart Rate 1: 76 bpm Height: 5'9" Respiratory Rate: 20 bpm Temperature: 36 .8 (C) / 98.3 (F) Weight: 204 lbs 10/27/2012 Blood Pressure 1: 114/70 Code: 8480-6 BMI: 30.3 Code: 55280-3 Heart Rate 1: 68 bpm Height: 5'9" Respiratory Rate: 20 bpm Temperature: 36 .8 (C) / 98.3 (F) Weight: 205 lbs 09/01/2012 Blood Pressure 1: 118/82 Code: 8480-6 BMI: 30.9 Code: 56331-2 Heart Rate 1: 80 bpm Height: 5'9" Respiratory Rate: 20 bpm Temperature: 36 .8 (C) / 98.2 (F) Weight: 209 lbs 02/03/2011 Blood Pressure 1: 118/76 Code: 8480-6 BMI: 29.5 Code: 12703-3 Heart Rate 1: 72 bpm Height: 5'9" Weight: 200 lbs 12/25/2009 Blood Pressure 1: 122/76 Code: 8480-6 BMI: 29.5 Code: 25244-0 Heart Rate 1: 80 bpm Height: 5'9" [...] 11/24 Encounters Encounter Performer Location Codes Date ([id number]) OFFICE/OUTPATIENT VISIT EST Diagnosis: Cellulitis of right breast[ICD10: N61.0] Josesito DEL ROSARIO DO [facility] CPT-4: 26786 05/04/2019 ([id number]) OFFICE/OUTPATIENT VISIT EST Diagnosis: Cellulitis of right breast[ICD10: N61.0] Josesito DEL ROSARIO DO [facility] CPT-4: 43843 05/03/2019 ([id number]) OFFICE/OUTPATIENT VISIT EST Diagnosis: Cellulitis of right breast[ICD10: N61.0] Josesito DEL ROSARIO [facility] CPT-4: 02523 05/02/2019 ([id number]) OFFICE/OUTPATIENT VISIT EST Diagnosis: Edema, unspecified[ICD10: R60.9] Diagnosis: Adverse effect of unspecified drugs, medicaments and biological substances, initial encounter[ICD10: T50.905A] Diagnosis: Gross hematuria[ICD10: R31.0] Josesito DEL ROSARIO DO [facility] CPT-4: 02018 10/19/2018 ([id number]) OFFICE/OUTPATIENT VISIT EST Diagnosis: URI, ACUTE[ICD10: J06.9] Josesito HSIELDS [facility] CPT-4: 27018 07/29/2018 ([id number]) OFFICE/OUTPATIENT VISIT EST Diagnosis: Acute pharyngitis, unspecified[ICD10: J02.9] Diagnosis: URI, ACUTE[ICD10: J06.9] Josesito SHIELDS [facility] CPT-4: 08947 07/26/2018 ([id number]) PREV VISIT EST AGE 40-64 Diagnosis: Encounter for general adult medical examination without abnormal findings[ICD10: Z00.00] Diagnosis: Encounter for gynecological examination (general) (routine) without abnormal findings[ICD10: Z01.419] Diagnosis: Menopausal and female climacteric states[ICD10: N95.1] Diagnosis: Other abnormal and inconclusive findings on diagnostic imaging of breast[ICD10: R92.8] Josesito DEL ROSARIO DO [facility] CPT-4: 68236 07/06/2018 ([id number]) PREV VISIT EST AGE 40-64 Diagnosis: Encounter for general adult medical examination without abnormal findings[ICD10: Z00.00] Diagnosis: Encounter for gynecological examination (general) (routine) without abnormal findings[ICD10: Z01.419] Josesito Lund DO [facility] CPT-4: 11248 06/30/2017 ([id number]) PREV VISIT EST AGE 40-64 Diagnosis: Encounter for general adult medical examination without abnormal findings[ICD10: Z00.00] Josesito DEL ROSARIO DO [facility] CPT-4: 50039 02/04/2016 ([id number]) PREV VISIT EST AGE 40-64 Diagnosis: ROUTINE MEDICAL EXAM[ICD9: V70.0] Diagnosis: MENOPAUSAL DISORDER[ICD9: 627.9] Josesito DEL ROSARIO DO [facility] CPT-4: 12147 12/19/2013 OFFICE/OUTPATIENT VISIT EST Diagnosis: MENOPAUSAL DISORDER[ICD9: 627.9] Josesito DEL ROSARIO DO [facility] CPT-4: 12816 10/27/2012 ([id number]) PREV VISIT EST AGE 40-64 Diagnosis: ROUTINE MEDICAL EXAM[ICD9: V70.0] Diagnosis: MENOPAUSAL DISORDER[ICD9: 627.9] Josesito DEL ROSARIO DO [facility] CPT-4: 41596 09/01/2012 PREV VISIT EST AGE 40-64 Diagnosis: ROUTINE GYNE EXAM[ICD9: V72.31] Diagnosis: ROUTINE MEDICAL EXAM[ICD9: V70.0] Josesito DEL ROSARIO DO [facility] CPT-4: 34092 02/03/2011 SPECIMEN HANDLING Diagnosis: [ICD9: ] Diagnosis: [ICD9: ] Josesito DEL ROSARIO DO [facility] CPT-4: 9900 0 02/03/2011 ([id number]) PREV VISIT, EST, AGE 40-64 Josesito MARQUEZNE Scotty DEL ROSARIO DO [facility] CPT-4: 89971 12/25/2009 Plan of Care Planned Activity Notes [...] N61.0 05/03/2019 Appointment[facility] [phone] [id number] [facility] 05/03/2019 Visit Diagnosis Plan: Cellulitis of right breast Discu ssion: Rocephin 1gm IM now Start clindamycin with a probiotic Recheck tomorrow ICD-9 : 611.0 ICD-10 : N61.0 05/02/2019 Appointment: Josesito Del Rosariotel: [id number] [facility] 05/02/2019 Patient Education: clindamycin HCl- [employer] Coupon [id number] [email or web address] Completed 05/02/2019 Care Plan: TRANSVAGINAL US NON-OB LOINC : 94126-4 Pending 10/21/2018 Appointment: Josesito Del Rosario WPtel: [id number] US WT CHECK 10/20/2018 Visit Diagnosis Plan: [...] R60.9 10/19/2018 Appointment: Josesito Del Rosario WPtel: [address] [place], [place] [id number] 10/19/2018 Appointment: Josesito Del Rosario WPtel: [address] [place], [place] [phone] Per CANCELED 08/02/2018 Visit Diagnosis Plan: URI, ACUTE Discussion: CXR negat johnna Lungs clear Only physical exam finding is injection on throat and mild fluid behind ears Will increase zyrtec to BID Throat Culture Notify surgeon of current course ICD-9 : 465.9 ICD-10 : J06.9 07/29/2018 Appointment: Josesito Del Rosario WPtel: [address] [place], [place] [phone] WORK IN 07/29/2018 Visit Diagnosis Plan: Acute pharyngitis, unspecified D iscussion: Strep Negative Cover with Zithromax with upcoming surgery next week but if worsens will let us know and will have to postpone surgery ICD-9 : 462 ICD-10 : J02.9 07/26/2018 Visit NOS Plan: Plan Notes: Supportive care. Rest, Fluids... 07/26/2018 Appointment: Josesito Del Rosario WPtel: [address] [place], [place] [phone] ACUTE ILLNESS 07/26/2018 Visit Diagnosis Plan: Encounter [...] N95.1 07/06/2018 Appointment: Josesito Del Rosario WPtel: [address] [place] [address] US PAP 07/06/2018 Care Plan: MAMMOGRAM BOTH BREASTS Diagnostic Mammogram of [place] Breast LOINC : 31146-1 Pending 06/24/2018 Care Plan: US EXAM CHEST [...] Z01.419 06/30/2017 Appointment: Josesito Del Rosario WPtel: [address] [place] [address] US PAP 06/30/2017 Patient Education: Patient Medication Summary Completed 06/30/2017 Visit Plan: Update fasting lab Pap done Had mammogram Weight bearing exercise 02/04/2016 Appointment: Josesito Del Rosario WPtel: [address] [place] [address] US 01/30 confirmed~sl PAP 02/04/2016 Patient Education: Patient Medication Summary Completed 02/04/2016 Appointment: Josesito Del Rosario WPtel: [address] [place] [address] US RESCHEDULED 01/17/2016 Patient Education: Patient Medication Summary Completed 12/31/2015 Care Plan: MAMMOGRAM SCREENING LOINC : [phone] Pending 12/31/2015 Visit Plan: Try to decrease fluoxetine t o 10mg daily Check Mammo Check fasting lab Check Colonoscopy due to family hx of Colon Cancer 12/19/2013 Appointment: Josesito Del Rosario WPtel: [address] [place], [place] [phone] 12/16 PAP 12/19/2013 Patient Education: Patient Medication Summary Completed 12/19/2013 Visit Plan: Long discussion about HRT--p t has Breast Ca on both sides--Discussed BRCA gene testing in Mom Will try higher dose of fluoxetine 10/27/2012 Appointment: Josesito Del Rosario WPtel: [address] [place], [place] [phone] FOLLOW UP 10/27/2012 Patient Education: Patient Medication Summary Completed 10/27/2012 Visit Plan: Lab discussed Add fish oil 3 grams daily Long discussion about hormones Trial of fluoxetine 09/01/2012 Appointment: Josesito Del Rosario WPtel: [address] [place], [place] [phone] PAP 09/01/2012 Patient Education: Patient Medication Summary Completed 09/01/2012 Visit Plan: Pap Done and Mammogram order ed Fasting lab ordered 02/03/2011 Appointment: Josesito Del Rosario WPtel: [address] [place], [place] [phone] [place] PAP 02/03/2011 Patient Education: Patient Medication Summary Completed 02/03/2011 Visit Plan: Pap done Mammo done last wee k Lab discussed Discussed Bioidentical Hormones 12/25/2009 Appointment: Josesito Del Rosario WPtel: [address] [place], [place] [phone] PAP 12/25/2009 Patient Education: Patient Medication Summary Completed 12/25/2009 Instructions Comment . Update fasting lab Pap done Had mammogram Weight bearing exercise . Try to decrease fluoxetine to 10mg kobe ly Check Mammo Check fasting lab Check Colonoscopy due to family hx of Colon Cancer . Long discussion about HRT--pt has [place] [address] Ca on both sides--Discussed BRCA gene [...]
--- OUTSIDE RECORDS SUMMARY | 2019-05-15 23:43 | XMS REPORT | CCD ---
Author Author Caridad Del Rosario D.O. Organization JOSESITO DEL ROSARIO DO [facility] Address [address] [place] [address] Phone Care Team Providers Care Ui Developer Designer Name Role Phone PP Unavailable CCM Unavailable Summary Purpose Interface Exchange Insurance Providers Payer name Policy type / Coverage type Covered democrat ID Effective Begin Date Effective End Date [facility] Commercial Insurance [id number] Un known Family History Family History data [...] Instructions clindamycin HCl 300 mg capsule RxNorm: 955895 1 Capsule (s) Oral three times a day 05/02/2019 05/09/2019 Active fluoxetine 20 mg tablet RxNorm: 037333 1 Tablet(s) Oral QD 03/29/20 19 09/24/2019 Active Zithromax Z-Khoi 250 mg tablet RxNorm: 858572 Tablet(s) Oral as directed 03/25/2019 03/25/2019 Inactive Zithromax Z-Khoi 250 mg tablet RxNorm: 003767 Tablet(s) Oral as directed 03/25/2019 03/24/2019 Inactive famotidine 20 mg tablet RxNorm: 832201 1 Tablet(s) PO BID 10/19/2018 02/15/2019 Inactive Tessalon Perles 100 mg capsule RxNorm: 904125 1 Capsule (s) PO TID as needed for cough 07/26/2018 10/18/2018 Inactive Zithromax 500 mg tablet RxNorm: 063216 1 Tablet(s) PO QD 07/26/2018 0 07/25/2018 Inactive Zithromax 500 mg tablet RxNorm: 222592 1 Tablet(s) PO QD 07/26/2018 0 07/30/2018 Inactive Xanax 0.25 mg tablet RxNorm: 940408 1/2-1 Tablet(s) PO BID 06/01/19 19 No Stop Date Active fluoxetine 20 mg tablet RxNorm: 674021 1 Tablet(s) PO Q D Due for annual appointment in 06/01/2018 02/25/2019 Inactive fluoxetine 20 mg tablet RxNorm: 302573 1 Tablet(s) PO Q D Due for annual in [facility] 06/01/2018 02/25/2019 Inactive fluoxetine 20 mg tablet RxNorm: 181988 1 Tablet(s) PO QD 08/05/2017 1 07/02/2017 Inactive fluoxetine 20 mg tablet RxNorm: 662337 1 Tablet(s) PO QD 08/04/2017 0 08/04/2017 Inactive Xanax 0.25 mg tablet RxNorm: 567405 1/2-1 Tablet(s) PO BID 07/02/19 18 05/31/2018 Inactive fluoxetine 10 mg capsule RxNorm: 918142 2 Capsule(s) PO QAM 018 07/05/2018 Inactive Generic For:PROZAC 10 MG PUL VULE 09/24/2015 10:15:02 AM N O T I C E Last quantity doesn't match original quantity fluoxetine 10 mg capsule RxNorm: 496796 2 Capsule(s) PO QAM Routine wellness due after 02-04-17 12/03/2016 03/02/2017 Inactive Generic For:PROZ AC 10 MG PULVULE 09/24/2015 10:15:02 AM N O T I C E Last quantity doesn't match original quantity Xanax 0.25 mg tablet RxNorm: 469476 1/2-1 Tablet(s) PO BID 02/05/20 16 07/01/2017 Inactive fluoxetine 10 mg capsule RxNorm: 189860 2 Capsule(s) PO QAM 016 07/25/2018 Inactive fluoxetine 10 mg capsule RxNorm: 650633 2 Capsule(s) PO QAM 016 12/03/2016 Inactive Generic For:PROZAC 10 MG PUL VULE 09/24/2015 10:15:02 AM N O T I C E Last quantity doesn't match original quantity fluoxetine 10 mg capsule RxNorm: 551359 2 Capsule(s) PO QAM TAKE 2 CAPSULES BY MOUTH EVERY MORNING 11/16/2015 02/03/2016 Inactive Generic For: PROZAC 10 MG PULVULE 09/24/2015 10:15:02 AM N O T I C E Last quantity doesn't match original quantity fluoxetine 10 mg capsule RxNorm: 710748 2 Capsule(s) PO QAM TAKE 2 CAPSULES BY MOUTH EVERY MORNING 09/24/2015 11/15/2015 Inactive Generic For: PROZAC 10 MG PULVULE 09/24/2015 10:15:02 AM N O T I C E Last quantity doesn't match original quantity fluoxetine 10 mg capsule RxNorm: 376908 2 Capsule(s) PO QAM 015 09/24/2015 Inactive fluoxetine 10 mg capsule RxNorm: 578732 2 Capsule(s) PO QAM 015 07/28/2018 Inactive fluoxetine 10 mg capsule RxNorm: 704599 2 Capsule(s) PO QAM 014 05/21/2014 Inactive Xanax 0.25 mg tablet RxNorm: 583235 1/2-1 Tablet(s) PO BID 04/21/20 13 No Stop Date Active fluoxetine 10 mg capsule RxNorm: 087485 2 Capsule(s) PO QAM 013 01/24/2013 Inactive fluoxetine 10 mg capsule RxNorm: 944300 1 Capsule(s) PO QAM 013 10/26/2012 Inactive Multivitamin & Mineral Formula Tab RxNorm: 1 Tablet(s) PO QD No St art Date Active Zyrtec 10 mg tablet RxNorm: 5804098 1 Tablet(s) PO BID No Start Date Active Prilosec OTC 20 mg tablet,delayed release RxNorm: 815873 1 Tabl et(s) PO QD No Start Date Active Tessalon Perles 100 mg capsule RxNorm: 568395 1 Capsule (s) PO TID as needed for cough No Start Date 07/25/2018 Inactive Biotin Oral RxNorm: Oral No Start Date 10/18/2018 Inactive Zithromax Z-Khoi oral RxNorm: 46396 oral No Start Date 03/24/2019 Inactive Echinacea ACZ oral RxNorm: oral No Start Date 07/28/2018 Inacti ve Vitamin D3 1000 units Capsule RxNorm: 1 Capsule(s) PO QD No St art Date 07/28/2018 Inactive Black Cohosh Oral RxNorm: Oral No Start Date 07/28/2018 Inactiv e Xanax 0.25 mg tablet RxNorm: 335228 1/2-1 Tablet(s) PO BID No Start Date 04/20/2013 Inactive Zyrtec 10 mg tablet RxNorm: 6138333 1 Tablet(s) PO QD as needed No Start Date 10/18/2018 Inactive Vitamin C 1,000 mg tablet RxNorm: 890976 1 Tablet(s) PO QD No Start Date 10/18/2018 Inactive fluoxetine 20 mg tablet RxNorm: 312895 1 Tablet(s) PO QD No Start D ate 08/03/2017 Inactive Medication Administered No Medication Administered data Immunizations Vaccine Codes Date Status Influenza CVX: 141 04/08/2019 Influenza CVX: 141 04/26/2018 Results Observation Observation Code Item Item Code Result Date S ervice Location CULTURE, URINE, ROUTINE 395 CULTURE, URINE, ROUTINE 10/20/2018 [facility] [address] [place] [address] GFR CALC 7557792 GFR Non Afr Amr >60 mL/min 07/05/2018 Un known GFR CALC 5643840 GFR Afr Amr >60 mL/min 07/05/2018 Unknow n FREE T4 32917 T4 Free 0.94 ng/dL 07/05/2018 Unknown [facility] 48146 Cholesterol 165 mg/dL 07/05/2018 Unkno wn [facility] 37930 Triglyceride 108 mg/dL 07/05/2018 Unkn own [facility] 67781 HDL CHOLESTEROL 50 mg/dL 07/05/2018 U nknown [facility] 80650 Chol/HDL Ratio 3.30 ratio 07/05/2018 U nknown [facility] 13998 NON-HDL Chol 115 mg/dL 07/05/2018 Unkn own [facility] 25355 LDL Cholesterol 93 mg/dL 07/05/2018 U nknown THYROID STIMULATING HORMONE 10842 TSH 0.937 uIU/mL 07/05/2018 Unknown COMPREHENSIVE METABOLIC 38453 AST 19 U/L 2018 Unknown COMPREHENSIVE METABOLIC 23439 ALT 21 U/L 2018 Unknown COMPREHENSIVE METABOLIC 98780 BUN 10 mg/dL 2018 Unknown COMPREHENSIVE METABOLIC 45654 ALBUMIN 4.3 g/dL 2018 Unknown COMPREHENSIVE METABOLIC 99470 CHLORIDE 106 mmol/L 07/05 Unknown COMPREHENSIVE METABOLIC 22656 Bili Total 0.3 mg/dL 07/05 Unknown COMPREHENSIVE METABOLIC 25002 ALK PHOS 59 U/L 2018 Unknown COMPREHENSIVE METABOLIC 53963 SODIUM 140 mmol/L 07/05 Unknown COMPREHENSIVE METABOLIC 89301 CREATININE 0.68 mg/dL 06/18 Unknown COMPREHENSIVE METABOLIC 85101 CALCIUM 9.2 mg/dL 2018 Unknown COMPREHENSIVE METABOLIC 76656 POTASSIUM 4.0 mmol/L 07/05 Unknown COMPREHENSIVE METABOLIC 39866 Total Protein 7.1 g/dL Unknown COMPREHENSIVE METABOLIC 72940 Glucose 84 mg/dL 2018 Unknown COMPREHENSIVE METABOLIC 79489 Bicarbonate 27 mmol/L 06/18 Unknown COMPREHENSIVE METABOLIC 72023 AGAP 7 mmol/L 2018 Unknown COMPLETE BLOOD COUNT 8327942 WBC 6.0 10e9/L 07/05/19 19 Unknown COMPLETE BLOOD COUNT 0582384 RBC 4.36 10e12/L 2018 Unknown COMPLETE BLOOD COUNT 8694722 HEMOGLOBIN 12.9 g/dL 07/05/19 19 Unknown COMPLETE BLOOD COUNT 7517114 HEMATOCRIT 39.1 % 07/05/19 19 Unknown COMPLETE BLOOD COUNT 9753895 MCV 89.7 fL 9 Unknown COMPLETE BLOOD COUNT 1234468 MCH 29.6 pg 9 Unknown COMPLETE BLOOD COUNT 7846466 MCHC 33.0 g/dL 9 Unknown COMPLETE BLOOD COUNT 6203710 PLATELET COUNT 270 10e9/L Unknown COMPLETE BLOOD COUNT 0341474 Mean Plt Volume 9.0 fL Unknown COMPLETE BLOOD COUNT 0788580 Neut Auto 53.8 % 9 Unknown COMPLETE BLOOD COUNT 9999711 Lymph Auto 35.8 % 07/05/19 19 Unknown COMPLETE BLOOD COUNT 5842573 [place] Auto 7.9 % 9 Unknown COMPLETE BLOOD COUNT 0998443 RDW 13.9 % 9 Unknown COMPLETE BLOOD COUNT 6965198 Eos Auto 2.0 % 9 Unknown COMPLETE BLOOD COUNT 4841511 Baso Auto 0.5 % 9 Unknown COMPLETE BLOOD COUNT 4728888 Neutrophil Abs 3.23 10e9/L Unknown COMPLETE BLOOD COUNT 8114260 Lymphocyte Abs 2.15 10e9/L Unknown COMPLETE BLOOD COUNT 0272432 Monocyte Abs 0.47 10e9/L 06/18 Unknown COMPLETE BLOOD COUNT 4694080 Eosinophil Abs 0.12 10e9/L Unknown COMPLETE BLOOD COUNT 0775151 RDW-SD 44.5 fL 9 Unknown COMPLETE BLOOD COUNT 6800736 Basophil Abs 0.03 10e9/L 06/18 Unknown FREE T4 00923 T4 Free 1.21 ng/dL 06/30/2017 Unknown GFR CALC 9884416 GFR Non Afr Amr >60 mL/min 06/30/2017 Un known GFR CALC 0836871 GFR Afr Amr >60 mL/min 06/30/2017 Unknow n THYROID STIMULATING HORMONE 45757 TSH 0.873 uIU/mL 06/30/2017 Unknown [facility] 97187 Cholesterol 175 mg/dL 06/30/2017 Unkno wn [facility] 14317 Triglyceride 129 mg/dL 06/30/2017 Unkn own [facility] 27729 HDL CHOLESTEROL 51 06/30/2017 U nknown [facility] 30837 Chol/HDL Ratio 3.43 ratio 06/30/2017 U nknown [facility] 22866 NON-HDL Chol 124 mg/dL 06/30/2017 Unkn own [facility] GROUP 96404 LDL Cholesterol 98 mg/dL 06/30/2017 U nknown COMPLETE BLOOD COUNT 7109457 WBC 6.2 10e9/L 06/30/19 18 Unknown COMPLETE BLOOD COUNT 9891462 RBC 4.58 10e12/L 2017 Unknown COMPLETE BLOOD COUNT 9914443 HEMOGLOBIN 13.3 g/dL 06/30/19 18 Unknown COMPLETE BLOOD COUNT 9416270 HEMATOCRIT 41.6 % 06/30/19 18 Unknown COMPLETE BLOOD COUNT 4269182 MCV 90.8 fL 8 Unknown COMPLETE BLOOD COUNT 5488876 MCH 29.0 pg 8 Unknown COMPLETE BLOOD COUNT 8541786 MCHC 32.0 g/dL 8 Unknown COMPLETE BLOOD COUNT 3564525 PLATELET COUNT 271 10e9/L Unknown COMPLETE BLOOD COUNT 6440621 Mean Plt Volume 8.9 fL Unknown COMPLETE BLOOD COUNT 2361540 Neut Auto 53.5 % 8 Unknown COMPLETE BLOOD COUNT 0147398 Lymph Auto 36.4 % 06/30/19 18 Unknown COMPLETE BLOOD COUNT 5170257 [place] Auto 8.1 % 8 Unknown COMPLETE BLOOD COUNT 4751855 RDW 13.4 % 8 Unknown COMPLETE BLOOD COUNT 5479254 Eos Auto 1.5 % 8 Unknown COMPLETE BLOOD COUNT 0580007 Baso Auto 0.5 % 8 Unknown COMPLETE BLOOD COUNT 7050779 Neutrophil Abs 3.32 10e9/L Unknown COMPLETE BLOOD COUNT 0057127 Lymphocyte Abs 2.26 10e9/L Unknown COMPLETE BLOOD COUNT 9833646 Monocyte Abs 0.50 10e9/L 06/18 Unknown COMPLETE BLOOD COUNT 4288265 Eosinophil Abs 0.09 10e9/L Unknown COMPLETE BLOOD COUNT 6364216 RDW-SD 43.9 fL 8 Unknown COMPLETE BLOOD COUNT 9625957 Basophil Abs 0.03 10e9/L 06/18 Unknown COMPREHENSIVE METABOLIC 34124 AST 19 U/L 2017 Unknown COMPREHENSIVE METABOLIC 19684 ALT 22 U/L 2017 Unknown COMPREHENSIVE METABOLIC 31981 BUN 12 mg/dL 2017 Unknown COMPREHENSIVE METABOLIC 61623 ALBUMIN 4.9 g/dL 2017 Unknown COMPREHENSIVE METABOLIC 26889 CHLORIDE 106 mmol/L 06/30 Unknown COMPREHENSIVE METABOLIC 78755 Bili Total 0.4 mg/dL 06/30 Unknown COMPREHENSIVE METABOLIC 33984 ALK PHOS 66 U/L 2017 Unknown COMPREHENSIVE METABOLIC 23564 SODIUM 143 mmol/L 06/30 Unknown COMPREHENSIVE METABOLIC 28950 CREATININE 0.71 mg/dL 06/18 Unknown COMPREHENSIVE METABOLIC 40579 CALCIUM 9.9 mg/dL 2017 Unknown COMPREHENSIVE METABOLIC 23438 POTASSIUM 4.1 mmol/L 06/30 Unknown COMPREHENSIVE METABOLIC 05861 Total Protein 8.0 g/dL Unknown COMPREHENSIVE METABOLIC 64755 Glucose 87 mg/dL 2017 Unknown COMPREHENSIVE METABOLIC 57446 Bicarbonate 27 mmol/L 06/18 Unknown COMPREHENSIVE METABOLIC 37371 AGAP 10 mmol/L 2017 Unknown GFR CALC 0221211 GFR AA >60 ML/MIN 12/19/2013 Unknown GFR CALC 2510240 GFR NON-AA >60 ML/MIN 12/19/2013 Unknown LIPID GROUP 64982 HDL TEST 52 MG/DL 12/19/2013 Unknown [facility] GROUP 99148 TRIG 96 MG/DL 12/19/2013 Unknown [facility] 22522 TEST LDL 98 MG/DL 12/19/2013 Unknown [facility] 33187 CHOL 169 MG/DL 12/19/2013 Unknown [facility] GROUP 41689 RCHOL/HDL 3.25 RATIO 12/19/2013 Unknow n LIP[facility] GROUP 85314 NON-HDL CH 117 MG/DL 12/19/2013 Unknow n COMPLETE BLOOD COUNT 6773322 WBC 5.6 10e9/L 12/20/19 14 Unknown COMPLETE BLOOD COUNT 9819668 RBC 4.45 10e12/L 2013 Unknown COMPLETE BLOOD COUNT 1311315 HGB 13.0 g/dL 4 Unknown COMPLETE BLOOD COUNT 1764454 HCT DET 39.9 % 4 Unknown COMPLETE BLOOD COUNT 9107342 MCV 89.7 fL 4 Unknown COMPLETE BLOOD COUNT 5361970 MCH 29.2 pg 4 Unknown COMPLETE BLOOD COUNT 9005632 MCHC 32.6 g/dL 4 Unknown COMPLETE BLOOD COUNT 6205995 PLT 244 10e9/L 12/20/19 14 Unknown COMPLETE BLOOD COUNT 4401180 MPV 9.4 fL 4 Unknown COMPLETE BLOOD COUNT 3008547 PABLITO % 58.5 % 4 Unknown COMPLETE BLOOD COUNT 5222283 LY % 30.8 % 4 Unknown COMPLETE BLOOD COUNT 2518581 MON % 8.2 % 4 Unknown COMPLETE BLOOD COUNT 3978946 EOS % 2.0 % 4 Unknown COMPLETE BLOOD COUNT 1782264 BASO % 0.5 % 4 Unknown COMPLETE BLOOD COUNT 3561498 RDW 13.6 % 4 Unknown COMPLETE BLOOD COUNT 0330383 ABS PABLITO 3.28 10e9/L 014 Unknown COMPLETE BLOOD COUNT 0914989 ABS LYMPH 1.72 10e9/L 014 Unknown COMPLETE BLOOD COUNT 8709989 ABS MONO 0.46 10e9/L 014 Unknown COMPLETE BLOOD COUNT 1047222 ABS EOS 0.11 10e9/L 014 Unknown COMPLETE BLOOD COUNT 0364733 ABS BASO 0.03 10e9/L 014 Unknown COMPLETE BLOOD COUNT 7297573 RDW-SD 43.6 fL 4 Unknown FREE T4 60969 FREE T4 1.26 NG/DL 12/19/2013 Unknown COMPREHENSIVE METABOLIC 79529 AST 18 U/L 2013 Unknown COMPREHENSIVE METABOLIC 78414 ALT 22 IU/L 2013 Unknown COMPREHENSIVE METABOLIC 76447 BUN 11 MG/DL 2013 Unknown COMPREHENSIVE METABOLIC 52783 ALBUMIN 4.7 GM/DL 2013 Unknown COMPREHENSIVE METABOLIC 09002 CHLORIDE 108 MMOL/L 12/19 Unknown COMPREHENSIVE METABOLIC 82772 BILI TOT 0.3 MG/DL 2013 Unknown COMPREHENSIVE METABOLIC 89370 ALK PHOS 67 U/L 2013 Unknown COMPREHENSIVE METABOLIC 82587 SODIUM 141 MMOL/L 12/19 Unknown COMPREHENSIVE METABOLIC 34381 CREATININE 0.67 MG/DL 08/2013 Unknown COMPREHENSIVE METABOLIC 72676 CALCIUM 9.4 MG/DL 2013 Unknown COMPREHENSIVE METABOLIC 49875 POTASSIUM 4.1 MMOL/L 12/19 Unknown COMPREHENSIVE METABOLIC 32599 PROT TOT 7.0 GM/DL 2013 Unknown COMPREHENSIVE METABOLIC 07739 Glucose 94 MG/DL 2013 Unknown COMPREHENSIVE METABOLIC 65679 BICARB 27 MMOL/L 2013 Unknown COMPREHENSIVE METABOLIC 87419 ANION GAP 6 MEQ/L 2013 Unknown THYROID STIMULATING HORMONE 44875 TSH 0.547 uIU/ML 12/19/2013 Unknown GFR CALC 1558481 GFR AA >60 ML/MIN 02/03/2011 Unknown GFR CALC 3354829 GFR NON-AA >60 ML/MIN 02/03/2011 Unknown THYROID STIMULATING HORMONE 98105 TSH 0.818 uIU/ML 02/03/2011 Unknown COMPLETE BLOOD COUNT 23417 WBC 7.7 10e9/L 02/04/20 11 Unknown COMPLETE BLOOD COUNT 73416 RBC 4.23 10e12/L 2010 Unknown COMPLETE BLOOD COUNT 00743 HGB 11.9 g/dL 1 Unknown COMPLETE BLOOD COUNT 81121 HCT DET 36.5 % 1 Unknown COMPLETE BLOOD COUNT 35891 MCV 86.3 fL 1 Unknown COMPLETE BLOOD COUNT 70442 MCH 28.1 pg 1 Unknown COMPLETE BLOOD COUNT 63341 MCHC 32.6 g/dL 1 Unknown COMPLETE BLOOD COUNT 08167 PLT 244 10e9/L 02/04/20 11 Unknown COMPLETE BLOOD COUNT 25534 MPV 8.7 fL 1 Unknown COMPLETE BLOOD COUNT 14288 PABLITO % 58.9 % 1 Unknown COMPLETE BLOOD COUNT 70629 LY % 31.1 % 1 Unknown COMPLETE BLOOD COUNT 17835 MON % 7.9 % 1 Unknown COMPLETE BLOOD COUNT 57989 EOS % 1.8 % 1 Unknown COMPLETE BLOOD COUNT 93016 BASO % 0.3 % 1 Unknown COMPLETE BLOOD COUNT 10593 RDW 14.7 % 1 Unknown COMPLETE BLOOD COUNT 86175 ABS PABLITO 4.54 10e9/L 011 Unknown COMPLETE BLOOD COUNT 20392 ABS LYMPH 2.39 10e9/L 011 Unknown COMPLETE BLOOD COUNT 56969 ABS MONO 0.61 10e9/L 011 Unknown COMPLETE BLOOD COUNT 70093 ABS EOS 0.14 10e9/L 011 Unknown COMPLETE BLOOD COUNT 73878 ABS BASO 0.02 10e9/L 011 Unknown COMPLETE BLOOD COUNT 59461 RDW-SD 45.1 fL 1 Unknown COMPREHENSIVE METABOLIC 35069 AST 16 U/L 2010 Unknown COMPREHENSIVE METABOLIC 78722 ALT 21 IU/L 2010 Unknown COMPREHENSIVE METABOLIC 83933 BUN 9 MG/DL 2010 Unknown COMPREHENSIVE METABOLIC 06603 ALBUMIN 4.5 GM/DL 2010 Unknown COMPREHENSIVE METABOLIC 98155 CHLORIDE 104 MMOL/L 02/03 Unknown COMPREHENSIVE METABOLIC 62234 BILI TOT 0.2 MG/DL 2010 Unknown COMPREHENSIVE METABOLIC 02929 ALK PHOS 65 U/L 2010 Unknown COMPREHENSIVE METABOLIC 84211 SODIUM 137 MMOL/L 02/03 Unknown COMPREHENSIVE METABOLIC 41762 CREATININE 0.64 MG/DL 01/16 Unknown COMPREHENSIVE METABOLIC 44509 CALCIUM 8.8 MG/DL 2010 Unknown COMPREHENSIVE METABOLIC 91421 POTASSIUM 3.8 MMOL/L 02/03 Unknown COMPREHENSIVE METABOLIC 15193 PROT TOT 6.7 GM/DL 2010 Unknown COMPREHENSIVE METABOLIC 28300 Glucose 88 MG/DL 2010 Unknown COMPREHENSIVE METABOLIC 45312 BICARB 26 MMOL/L 2010 Unknown COMPREHENSIVE METABOLIC 79266 ANION GAP 7 MEQ/L 2010 Unknown FREE T4 01025 FREE T4 1.24 NG/DL 02/03/2011 Unknown Procedures Procedure Codes Date CEFTRIAXONE SODIUM INJECTION CPT-4: J0696 05/04/2019 THER/PROPH/DIAG INJ SC/IM CPT-4: 50488 05/04/2019 CEFTRIAXONE SODIUM INJECTION CPT-4: J0696 05/03/2019 THER/PROPH/DIAG INJ SC/IM CPT-4: 66657 05/03/2019 CEFTRIAXONE SODIUM INJECTION CPT-4: J0696 05/02/2019 THER/PROPH/DIAG INJ SC/IM CPT-4: 94409 05/02/2019 DEXAMETHASONE SODIUM PHOS CPT-4: J1100 10/19/2018 THER/PROPH/DIAG INJ SC/IM CPT-4: 41990 10/19/2018 URINE CULTURE/ COLONY COUNT CPT-4: 08031 10/19/2018 URINALYSIS NONAUTO W/O SCOPE CPT-4: 18229 10/19/2018 THROAT CULTURE CPT-4: 66768 07/29/2018 STREP A ASSAY W/OPTIC CPT-4: 47833 07/26/2018 SPECIMEN HANDLING OFFICE-LAB CPT-4: 32239 07/06/2018 OCCULT BLOOD FECES CPT-4: 76493 07/06/2018 ROUTINE VENIPUNCTURE CPT-4: 57644 12/19/2013 ASSAY OF FREE THYROXINE CPT-4: 76721 12/19/2013 ASSAY THYROID STIM HORMONE CPT-4: 27530 12/19/2013 COMPREHEN METABOLIC PANEL CPT-4: 92309 12/19/2013 COMPLETE CBC W/AUTO DIFF WBC CPT-4: 34375 12/19/2013 LIPID PANEL CPT-4: 56067 12/19/2013 OCCULT BLOOD FECES CPT-4: 15871 02/03/2011 SPECIMEN HANDLING OFFICE-LAB CPT-4: 58643 12/25/2009 OCCULT BLOOD FECES CPT-4: 50957 12/25/2009 Vital Signs Date Vital 05/04/2019 Blood [...] 1: 130/78 Code: 8480-6 BMI: 30.7 Code: 46810-6 Heart Rate 1: 76 bpm Height: 5'9" Respiratory Rate: 20 bpm Temperature: 36 .8 (C) / 98.3 (F) Weight: 208 lbs 06/30/2017 Blood Pressure 1: 126/80 Code: 8480-6 BMI: 30.9 Code: 88737-5 Heart Rate 1: 72 bpm Height: 5'9" Respiratory Rate: 20 bpm Temperature: 36 .7 (C) / 98.0 (F) Weight: 209 lbs 02/04/2016 Blood Pressure 1: 122/80 Code: 8480-6 BMI: 31.3 Code: 57946-9 Heart Rate 1: 80 bpm Height: 5'9" Respiratory Rate: 20 bpm Temperature: 36 .6 (C) / 97.8 (F) Weight: 212 lbs 12/19/2013 Blood Pressure 1: 116/78 Code: 8480-6 BMI: 30.1 Code: 40180-5 Heart Rate 1: 76 bpm Height: 5'9" Respiratory Rate: 20 bpm Temperature: 36 .8 (C) / 98.3 (F) Weight: 204 lbs 10/27/2012 Blood Pressure 1: 114/70 Code: 8480-6 BMI: 30.3 Code: 15987-2 Heart Rate 1: 68 bpm Height: 5'9" Respiratory Rate: 20 bpm Temperature: 36 .8 (C) / 98.3 (F) Weight: 205 lbs 09/01/2012 Blood Pressure 1: 118/82 Code: 8480-6 BMI: 30.9 Code: 89654-4 Heart Rate 1: 80 bpm Height: 5'9" Respiratory Rate: 20 bpm Temperature: 36 .8 (C) / 98.2 (F) Weight: 209 lbs 02/03/2011 Blood Pressure 1: 118/76 Code: 8480-6 BMI: 29.5 Code: 83687-5 Heart Rate 1: 72 bpm Height: 5'9" Weight: 200 lbs 12/25/2009 Blood Pressure 1: 122/76 Code: 8480-6 BMI: 29.5 Code: 66025-8 Heart Rate 1: 80 bpm Height: 5'9" [...] 11/24 Encounters Encounter Performer Location Codes Date ([id number]) OFFICE/OUTPATIENT VISIT EST Diagnosis: Cellulitis of right breast[ICD10: N61.0] Josesito DEL ROSARIO DO [facility] CPT-4: 73970 05/04/2019 ([id number]) OFFICE/OUTPATIENT VISIT EST Diagnosis: Cellulitis of right breast[ICD10: N61.0] Josesito DEL ROSARIO DO [facility] CPT-4: 61621 05/03/2019 ([id number]) OFFICE/OUTPATIENT VISIT EST Diagnosis: Cellulitis of right breast[ICD10: N61.0] Josesito DEL ROSARIO DO [facility] CPT-4: 35075 05/02/2019 ([id number]) OFFICE/OUTPATIENT VISIT EST Diagnosis: Edema, unspecified[ICD10: R60.9] Diagnosis: Adverse effect of unspecified drugs, medicaments and biological substances, initial encounter[ICD10: T50.905A] Diagnosis: Gross hematuria[ICD10: R31.0] Josesito DEL ROSARIO DO [facility] CPT-4: 00278 10/19/2018 ([id number]) OFFICE/OUTPATIENT VISIT EST Diagnosis: URI, ACUTE[ICD10: J06.9] Josesito SHIELDS [facility] CPT-4: 26203 07/29/2018 ([id number]) OFFICE/OUTPATIENT VISIT EST Diagnosis: Acute pharyngitis, unspecified[ICD10: J02.9] Diagnosis: URI, ACUTE[ICD10: J06.9] Josesito SHIELDS [facility] CPT-4: 03178 07/26/2018 ([id number]) PREV VISIT EST AGE 40-64 Diagnosis: Encounter for general adult medical examination without abnormal findings[ICD10: Z00.00] Diagnosis: Encounter for gynecological examination (general) (routine) without abnormal findings[ICD10: Z01.419] Diagnosis: Menopausal and female climacteric states[ICD10: N95.1] Diagnosis: Other abnormal and inconclusive findings on diagnostic imaging of breast[ICD10: R92.8] Josesito DEL ROSARIO DO [facility] CPT-4: 16088 07/06/2018 ([id number]) PREV VISIT EST AGE 40-64 Diagnosis: Encounter for general adult medical examination without abnormal findings[ICD10: Z00.00] Diagnosis: Encounter for gynecological examination (general) (routine) without abnormal findings[ICD10: Z01.419] Josesito Lund DO [facility] CPT-4: 52827 06/30/2017 ([id number]) PREV VISIT EST AGE 40-64 Diagnosis: Encounter for general adult medical examination without abnormal findings[ICD10: Z00.00] Josesito DEL ROSARIO DO [facility] CPT-4: 59038 02/04/2016 ([id number]) PREV VISIT EST AGE 40-64 Diagnosis: ROUTINE MEDICAL EXAM[ICD9: V70.0] Diagnosis: MENOPAUSAL DISORDER[ICD9: 627.9] Josesito DEL ROSARIO DO [facility] CPT-4: 94582 12/19/2013 OFFICE/OUTPATIENT VISIT EST Diagnosis: MENOPAUSAL DISORDER[ICD9: 627.9] Josesito DEL ROSARIO DO [facility] CPT-4: 95446 10/27/2012 ([id number]) PREV VISIT EST AGE 40-64 Diagnosis: ROUTINE MEDICAL EXAM[ICD9: V70.0] Diagnosis: MENOPAUSAL DISORDER[ICD9: 627.9] Josesito DEL ROSARIO DO [facility] CPT-4: 07457 09/01/2012 PREV VISIT EST AGE 40-64 Diagnosis: ROUTINE GYNE EXAM[ICD9: V72.31] Diagnosis: ROUTINE MEDICAL EXAM[ICD9: V70.0] Josesito DEL ROSARIO DO [facility] CPT-4: 17050 02/03/2011 SPECIMEN HANDLING Diagnosis: [ICD9: ] Diagnosis: [ICD9: ] Josesito DEL ROSARIO DO [facility] CPT-4: 9900 0 02/03/2011 ([id number]) PREV VISIT, EST, AGE 40-64 Josesito MARQUEZNE Scotty DEL ROSARIO DO [facility] CPT-4: 33749 12/25/2009 Plan of Care Planned Activity Notes [...] N61.0 05/03/2019 App[facility]ment[facility] [phone] [facility] [facility] 05/03/2019 Visit Diagnosis Plan: Cellulitis of right breast Discu ssion: Rocephin 1gm IM now Start clindamycin with a probiotic Recheck tomorrow ICD-9 : 611.0 ICD-10 : N61.0 05/02/2019 Appointment: Josesito Del Rosariotel: [facility] [facility] 05/02/2019 Patient Education: clindamycin HCl- [employer] Coupon [id number] [email or web address] Completed 05/02/2019 Care Plan: TRANSVAGINAL US NON-OB LOINC : 04040-4 Pending 10/21/2018 Appointment: Josesito Del Rosario WPtel: [facility] [facility] WT CHECK 10/20/2018 Visit Diagnosis [...] R60.9 10/19/2018 Appointment: Josesito Del Rosario WPtel: [address] [place], [place] [id number] 10/19/2018 Appointment: Josesito Del Rosario WPtel: [address] [place], [place] [phone] Per CANCELED 08/02/2018 Visit Diagnosis Plan: URI, ACUTE Discussion: CXR negat johnna Lungs clear Only physical exam finding is injection on throat and mild fluid behind ears Will increase zyrtec to BID Throat Culture Notify surgeon of current course ICD-9 : 465.9 ICD-10 : J06.9 07/29/2018 Appointment: Josesito Del Rosario WPtel: [address] [place], [place] [phone] WORK IN 07/29/2018 Visit Diagnosis Plan: Acute pharyngitis, unspecified D iscussion: Strep Negative Cover with Zithromax with upcoming surgery next week but if worsens will let us know and will have to postpone surgery ICD-9 : 462 ICD-10 : J02.9 07/26/2018 Visit NOS Plan: Plan Notes: Supportive care. Rest, Fluids... 07/26/2018 Appointment: Josesito Del Rosario WPtel: [address] [place], [place] [phone] ACUTE ILLNESS 07/26/2018 Visit Diagnosis Plan: Encounter [...] N95.1 07/06/2018 Appointment: Josesito Del Rosario WPtel: [address] [place] [address] US PAP 07/06/2018 Care Plan: MAMMOGRAM BOTH BREASTS Diagnostic Mammogram of [place] ft Breast LOINC : 03448-3 Pending 06/24/2018 Care Plan: US EXAM CHEST [...] Z01.419 06/30/2017 Appointment: Josesito Del Rosario WPtel: [address] [place] [address] US PAP 06/30/2017 Patient Education: Patient Medication Summary Completed 06/30/2017 Visit Plan: Update fasting lab Pap done Had mammogram Weight bearing exercise 02/04/2016 Appointment: Josesito Del Rosario WPtel: [address] [place] [address] US 01/30 confirmed~sl PAP 02/04/2016 Patient Education: Patient Medication Summary Completed 02/04/2016 Appointment: Josesito Del Rosario WPtel: [address] [place] [address] US RESCHEDULED 01/17/2016 Patient Education: Patient Medication Summary Completed 12/31/2015 Care Plan: MAMMOGRAM SCREENING LOINC : 2 6347-5 Pending 12/31/2015 Visit Plan: Try to decrease fluoxetine t o 10mg daily Check Mammo Check fasting lab Check Colonoscopy due to family hx of Colon Cancer 12/19/2013 Appointment: Josesito Del Rosario WPtel: [address] [place], [place] [phone] 12/16 PAP 12/19/2013 Patient Education: Patient Medication Summary Completed 12/19/2013 Visit Plan: Long discussion about HRT--p t has Breast Ca on both sides--Discussed BRCA gene testing in Mom Will try higher dose of fluoxetine 10/27/2012 Appointment: Josesito Del Rosario WPtel: [address] [place], [place] [phone] FOLLOW UP 10/27/2012 Patient Education: Patient Medication Summary Completed 10/27/2012 Visit Plan: Lab discussed Add fish oil 3 grams daily Long discussion about hormones Trial of fluoxetine 09/01/2012 Appointment: Josesito Del Rosario WPtel: [address] [place], [place] [phone] PAP 09/01/2012 Patient Education: Patient Medication Summary Completed 09/01/2012 Visit Plan: Pap Done and Mammogram order ed Fasting lab ordered 02/03/2011 Appointment: Josesito Del Rosario WPtel: [address] [place], [place] [phone] [place] PAP 02/03/2011 Patient Education: Patient Medication Summary Completed 02/03/2011 Visit Plan: Pap done Mammo done last wee k Lab discussed Discussed Bioidentical Hormones 12/25/2009 Appointment: Josesito Del Rosario WPtel: [address] [place], [place] [phone] PAP 12/25/2009 Patient Education: Patient Medication Summary Completed 12/25/2009 Instructions Comment . Update fasting lab Pap done Had mammogram Weight bearing exercise . Try to decrease fluoxetine to 10mg kobe ly Check Mammo Check fasting lab Check Colonoscopy due to family hx of Colon Cancer . Long discussion about HRT--pt has [place] st Ca on both sides--Discussed BRCA gene [...]
--- OUTSIDE RECORDS SUMMARY | 2019-05-15 23:43 | XMS REPORT | CCD ---
Author Author Caridad Del Rosario D.O. Organization [facility] Address [address] [place] [address] Phone Care Team Providers Care Medical Billing Instructor Name Role Phone PP Unavailable CCM Unavailable Summary Purpose Interface Exchange Insurance Providers Payer name Policy type / Coverage type Covered republican ID Effective Begin Date Effective End Date [facility] Commercial Insurance [id number] Un known Family History Family History data [...] Instructions clindamycin HCl 300 mg capsule RxNorm: 396723 1 Capsule (s) Oral three times a day 05/02/2019 05/09/2019 Active fluoxetine 20 mg tablet RxNorm: 612491 1 Tablet(s) Oral QD 03/29/20 19 09/24/2019 Active Zithromax Z-Khoi 250 mg tablet RxNorm: 116136 Tablet(s) Oral as directed 03/25/2019 03/25/2019 Inactive Zithromax Z-Khoi 250 mg tablet RxNorm: 506216 Tablet(s) Oral as directed 03/25/2019 03/24/2019 Inactive famotidine 20 mg tablet RxNorm: 851513 1 Tablet(s) PO BID 10/19/2018 02/15/2019 Inactive Tessalon Perles 100 mg capsule RxNorm: 322680 1 Capsule (s) PO TID as needed for cough 07/26/2018 10/18/2018 Inactive Zithromax 500 mg tablet RxNorm: 867410 1 Tablet(s) PO QD 07/26/2018 0 07/25/2018 Inactive Zithromax 500 mg tablet RxNorm: 020449 1 Tablet(s) PO QD 07/26/2018 0 07/30/2018 Inactive Xanax 0.25 mg tablet RxNorm: 031017 1/2-1 Tablet(s) PO BID 06/01/19 19 No Stop Date Active fluoxetine 20 mg tablet RxNorm: 701499 1 Tablet(s) PO Q D Due for annual appointment in 06/01/2018 02/25/2019 Inactive fluoxetine 20 mg tablet RxNorm: 179919 1 Tablet(s) PO Q D Due for annual in [facility] 06/01/2018 02/25/2019 Inactive fluoxetine 20 mg tablet RxNorm: 642784 1 Tablet(s) PO QD 08/05/2017 1 07/02/2017 Inactive fluoxetine 20 mg tablet RxNorm: 941859 1 Tablet(s) PO QD 08/04/2017 0 08/04/2017 Inactive Xanax 0.25 mg tablet RxNorm: 604020 1/2-1 Tablet(s) PO BID 07/02/19 18 05/31/2018 Inactive fluoxetine 10 mg capsule RxNorm: 683597 2 Capsule(s) PO QAM 018 07/05/2018 Inactive Generic For:PROZAC 10 MG PUL VULE 09/24/2015 10:15:02 AM N O T I C E Last quantity doesn't match original quantity fluoxetine 10 mg capsule RxNorm: 493733 2 Capsule(s) PO QAM Routine wellness due after 02-04-17 12/03/2016 03/02/2017 Inactive Generic For:PROZ AC 10 MG PULVULE 09/24/2015 10:15:02 AM N O T I C E Last quantity doesn't match original quantity Xanax 0.25 mg tablet RxNorm: 517504 1/2-1 Tablet(s) PO BID 02/05/20 16 07/01/2017 Inactive fluoxetine 10 mg capsule RxNorm: 476607 2 Capsule(s) PO QAM 016 07/25/2018 Inactive fluoxetine 10 mg capsule RxNorm: 111384 2 Capsule(s) PO QAM 016 12/03/2016 Inactive Generic For:PROZAC 10 MG PUL VULE 09/24/2015 10:15:02 AM N O T I C E Last quantity doesn't match original quantity fluoxetine 10 mg capsule RxNorm: 466033 2 Capsule(s) PO QAM TAKE 2 CAPSULES BY MOUTH EVERY MORNING 11/16/2015 02/03/2016 Inactive Generic For: PROZAC 10 MG PULVULE 09/24/2015 10:15:02 AM N O T I C E Last quantity doesn't match original quantity fluoxetine 10 mg capsule RxNorm: 309821 2 Capsule(s) PO QAM TAKE 2 CAPSULES BY MOUTH EVERY MORNING 09/24/2015 11/15/2015 Inactive Generic For: PROZAC 10 MG PULVULE 09/24/2015 10:15:02 AM N O T I C E Last quantity doesn't match original quantity fluoxetine 10 mg capsule RxNorm: 089420 2 Capsule(s) PO QAM 015 09/24/2015 Inactive fluoxetine 10 mg capsule RxNorm: 203049 2 Capsule(s) PO QAM 015 07/28/2018 Inactive fluoxetine 10 mg capsule RxNorm: 745136 2 Capsule(s) PO QAM 014 05/21/2014 Inactive Xanax 0.25 mg tablet RxNorm: 572638 1/2-1 Tablet(s) PO BID 04/21/20 13 No Stop Date Active fluoxetine 10 mg capsule RxNorm: 211312 2 Capsule(s) PO QAM 013 01/24/2013 Inactive fluoxetine 10 mg capsule RxNorm: 733633 1 Capsule(s) PO QAM 013 10/26/2012 Inactive Multivitamin & Mineral Formula Tab RxNorm: 1 Tablet(s) PO QD No St art Date Active Zyrtec 10 mg tablet RxNorm: 3870855 1 Tablet(s) PO BID No Start Date Active Prilosec OTC 20 mg tablet,delayed release RxNorm: 055236 1 Tabl et(s) PO QD No Start Date Active Tessalon Perles 100 mg capsule RxNorm: 122519 1 Capsule (s) PO TID as needed for cough No Start Date 07/25/2018 Inactive Biotin Oral RxNorm: Oral No Start Date 10/18/2018 Inactive Zithromax Z-Khoi oral RxNorm: 33756 oral No Start Date 03/24/2019 Inactive Echinacea ACZ oral RxNorm: oral No Start Date 07/28/2018 Inacti ve Vitamin D3 1000 units Capsule RxNorm: 1 Capsule(s) PO QD No St art Date 07/28/2018 Inactive Black Cohosh Oral RxNorm: Oral No Start Date 07/28/2018 Inactiv e Xanax 0.25 mg tablet RxNorm: 193478 1/2-1 Tablet(s) PO BID No Start Date 04/20/2013 Inactive Zyrtec 10 mg tablet RxNorm: 8904687 1 Tablet(s) PO QD as needed No Start Date 10/18/2018 Inactive Vitamin C 1,000 mg tablet RxNorm: 871908 1 Tablet(s) PO QD No Start Date 10/18/2018 Inactive fluoxetine 20 mg tablet RxNorm: 488669 1 Tablet(s) PO QD No Start D ate 08/03/2017 Inactive Medication Administered No Medication Administered data Immunizations Vaccine Codes Date Status Influenza CVX: 141 04/08/2019 Influenza CVX: 141 04/26/2018 Results Observation Observation Code Item Item Code Result Date S ervice Location CULTURE, URINE, ROUTINE 395 CULTURE, URINE, ROUTINE 10/20/2018 [facility] [address] [place] [address] GFR CALC 6245167 GFR Non Afr Amr >60 mL/min 07/05/2018 Un known GFR CALC 9548017 GFR Afr Amr >60 mL/min 07/05/2018 Unknow n FREE T4 62072 T4 Free 0.94 ng/dL 07/05/2018 Unknown [facility] 14471 Cholesterol 165 mg/dL 07/05/2018 Unkno wn [facility] 83616 Triglyceride 108 mg/dL 07/05/2018 Unkn own [facility] 15870 HDL CHOLESTEROL 50 mg/dL 07/05/2018 U nknown [facility] 11708 Chol/HDL Ratio 3.30 ratio 07/05/2018 U nknown [facility] 39862 NON-HDL Chol 115 mg/dL 07/05/2018 Unkn own [facility] 40204 LDL Cholesterol 93 mg/dL 07/05/2018 U nknown THYROID STIMULATING HORMONE 26893 TSH 0.937 uIU/mL 07/05/2018 Unknown COMPREHENSIVE METABOLIC 93767 AST 19 U/L 2018 Unknown COMPREHENSIVE METABOLIC 86119 ALT 21 U/L 2018 Unknown COMPREHENSIVE METABOLIC 98354 BUN 10 mg/dL 2018 Unknown COMPREHENSIVE METABOLIC 39772 ALBUMIN 4.3 g/dL 2018 Unknown COMPREHENSIVE METABOLIC 99049 CHLORIDE 106 mmol/L 07/05 Unknown COMPREHENSIVE METABOLIC 99009 Bili Total 0.3 mg/dL 07/05 Unknown COMPREHENSIVE METABOLIC 84115 ALK PHOS 59 U/L 2018 Unknown COMPREHENSIVE METABOLIC 44460 SODIUM 140 mmol/L 07/05 Unknown COMPREHENSIVE METABOLIC 43445 CREATININE 0.68 mg/dL 06/18 Unknown COMPREHENSIVE METABOLIC 77019 CALCIUM 9.2 mg/dL 2018 Unknown COMPREHENSIVE METABOLIC 00563 POTASSIUM 4.0 mmol/L 07/05 Unknown COMPREHENSIVE METABOLIC 29802 Total Protein 7.1 g/dL Unknown COMPREHENSIVE METABOLIC 79371 Glucose 84 mg/dL 2018 Unknown COMPREHENSIVE METABOLIC 50653 Bicarbonate 27 mmol/L 06/18 Unknown COMPREHENSIVE METABOLIC 75616 AGAP 7 mmol/L 2018 Unknown COMPLETE BLOOD COUNT 7789655 WBC 6.0 10e9/L 07/05/19 19 Unknown COMPLETE BLOOD COUNT [id number] RBC 4.36 10e12/L 2018 Unknown COMPLETE BLOOD COUNT 1490645 HEMOGLOBIN 12.9 g/dL 07/05/19 19 Unknown COMPLETE BLOOD COUNT 6078517 HEMATOCRIT 39.1 % 07/05/19 19 Unknown COMPLETE BLOOD COUNT 7375690 MCV 89.7 fL 9 Unknown COMPLETE BLOOD COUNT 5875543 MCH 29.6 pg 9 Unknown COMPLETE BLOOD COUNT 9848848 MCHC 33.0 g/dL 9 Unknown COMPLETE BLOOD COUNT 8894779 PLATELET COUNT 270 10e9/L Unknown COMPLETE BLOOD COUNT 0606168 Mean Plt Volume 9.0 fL Unknown COMPLETE BLOOD COUNT 1967624 Neut Auto 53.8 % 9 Unknown COMPLETE BLOOD COUNT 2018292 Lymph Auto 35.8 % 07/05/19 19 Unknown COMPLETE BLOOD COUNT 8139760 [place] Auto 7.9 % 9 Unknown COMPLETE BLOOD COUNT 7362367 RDW 13.9 % 9 Unknown COMPLETE BLOOD COUNT 4110745 Eos Auto 2.0 % 9 Unknown COMPLETE BLOOD COUNT 9866883 Baso Auto 0.5 % 9 Unknown COMPLETE BLOOD COUNT 1069958 Neutrophil Abs 3.23 10e9/L Unknown COMPLETE BLOOD COUNT 8688173 Lymphocyte Abs 2.15 10e9/L Unknown COMPLETE BLOOD COUNT 5547074 Monocyte Abs 0.47 10e9/L 06/18 Unknown COMPLETE BLOOD COUNT 4050379 Eosinophil Abs 0.12 10e9/L Unknown COMPLETE BLOOD COUNT 4617221 RDW-SD 44.5 fL 9 Unknown COMPLETE BLOOD COUNT 9017657 Basophil Abs 0.03 10e9/L 06/18 Unknown FREE T4 53674 T4 Free 1.21 ng/dL 06/30/2017 Unknown GFR CALC 1871481 GFR Non Afr Amr >60 mL/min 06/30/2017 Un known GFR CALC 2781411 GFR Afr Amr >60 mL/min 06/30/2017 Unknow n THYROID STIMULATING HORMONE 96134 TSH 0.873 uIU/mL 06/30/2017 Unknown [facility] 44759 Cholesterol 175 mg/dL 06/30/2017 Unkno wn [facility] 27788 Triglyceride 129 mg/dL 06/30/2017 Unkn own [facility] 17833 HDL CHOLESTEROL 51 06/30/2017 U nknown [facility] 44254 Chol/HDL Ratio 3.43 ratio 06/30/2017 U nknown L[facility] GROUP 06334 NON-HDL Chol 124 mg/dL 06/30/2017 Unkn own [facility] 53183 LDL Cholesterol 98 mg/dL 06/30/2017 U nknown COMPLETE BLOOD COUNT 0749211 WBC 6.2 10e9/L 06/30/19 18 Unknown COMPLETE BLOOD COUNT 9495832 RBC 4.58 10e12/L 2017 Unknown COMPLETE BLOOD COUNT 8851799 HEMOGLOBIN 13.3 g/dL 06/30/19 18 Unknown COMPLETE BLOOD COUNT 7962965 HEMATOCRIT 41.6 % 06/30/19 18 Unknown COMPLETE BLOOD COUNT 7794798 MCV 90.8 fL 8 Unknown COMPLETE BLOOD COUNT 0067975 MCH 29.0 pg 8 Unknown COMPLETE BLOOD COUNT 1491069 MCHC 32.0 g/dL 8 Unknown COMPLETE BLOOD COUNT 2576562 PLATELET COUNT 271 10e9/L Unknown COMPLETE BLOOD COUNT 4466032 Mean Plt Volume 8.9 fL Unknown COMPLETE BLOOD COUNT 5154604 Neut Auto 53.5 % 8 Unknown COMPLETE BLOOD COUNT 1720541 Lymph Auto 36.4 % 06/30/19 18 Unknown COMPLETE BLOOD COUNT 5706663 [place] Auto 8.1 % 8 Unknown COMPLETE BLOOD COUNT 9697754 RDW 13.4 % 8 Unknown COMPLETE BLOOD COUNT 5266753 Eos Auto 1.5 % 8 Unknown COMPLETE BLOOD COUNT 4259476 Baso Auto 0.5 % 8 Unknown COMPLETE BLOOD COUNT 8326203 Neutrophil Abs 3.32 10e9/L Unknown COMPLETE BLOOD COUNT 8702712 Lymphocyte Abs 2.26 10e9/L Unknown COMPLETE BLOOD COUNT 6375016 Monocyte Abs 0.50 10e9/L 06/18 Unknown COMPLETE BLOOD COUNT 4154375 Eosinophil Abs 0.09 10e9/L Unknown COMPLETE BLOOD COUNT 5728674 RDW-SD 43.9 fL 8 Unknown COMPLETE BLOOD COUNT 4072432 Basophil Abs 0.03 10e9/L 06/18 Unknown COMPREHENSIVE METABOLIC 26197 AST 19 U/L 2017 Unknown COMPREHENSIVE METABOLIC 98159 ALT 22 U/L 2017 Unknown COMPREHENSIVE METABOLIC 50573 BUN 12 mg/dL 2017 Unknown COMPREHENSIVE METABOLIC 39944 ALBUMIN 4.9 g/dL 2017 Unknown COMPREHENSIVE METABOLIC 79734 CHLORIDE 106 mmol/L 06/30 Unknown COMPREHENSIVE METABOLIC 55839 Bili Total 0.4 mg/dL 06/30 Unknown COMPREHENSIVE METABOLIC 01481 ALK PHOS 66 U/L 2017 Unknown COMPREHENSIVE METABOLIC 21864 SODIUM 143 mmol/L 06/30 Unknown COMPREHENSIVE METABOLIC 94989 CREATININE 0.71 mg/dL 06/18 Unknown COMPREHENSIVE METABOLIC 63245 CALCIUM 9.9 mg/dL 2017 Unknown COMPREHENSIVE METABOLIC 27399 POTASSIUM 4.1 mmol/L 06/30 Unknown COMPREHENSIVE METABOLIC 40355 Total Protein 8.0 g/dL Unknown COMPREHENSIVE METABOLIC 91452 Glucose 87 mg/dL 2017 Unknown COMPREHENSIVE METABOLIC 14039 Bicarbonate 27 mmol/L 06/18 Unknown COMPREHENSIVE METABOLIC 15936 AGAP 10 mmol/L 2017 Unknown GFR CALC 1138084 GFR AA >60 ML/MIN 12/19/2013 Unknown GFR CALC 7807419 GFR NON-AA >60 ML/MIN 12/19/2013 Unknown LIPID GROUP 01672 HDL TEST 52 MG/DL 12/19/2013 Unknown [facility] GROUP 83992 TRIG 96 MG/DL 12/19/2013 Unknown [facility] 61050 TEST LDL 98 MG/DL 12/19/2013 Unknown L[facility] GROUP 27734 CHOL 169 MG/DL 12/19/2013 Unknown L[facility] GROUP 66253 RCHOL/HDL 3.25 RATIO 12/19/2013 Unknow n L[facility] GROUP 32779 NON-HDL CH 117 MG/DL 12/19/2013 Unknow n COMPLETE BLOOD COUNT 6775526 WBC 5.6 10e9/L 12/20/19 14 Unknown COMPLETE BLOOD COUNT 3575938 RBC 4.45 10e12/L 2013 Unknown COMPLETE BLOOD COUNT 5382274 HGB 13.0 g/dL 4 Unknown COMPLETE BLOOD COUNT 4722391 HCT DET 39.9 % 4 Unknown COMPLETE BLOOD COUNT 3316527 MCV 89.7 fL 4 Unknown COMPLETE BLOOD COUNT 9018386 MCH 29.2 pg 4 Unknown COMPLETE BLOOD COUNT 9657704 MCHC 32.6 g/dL 4 Unknown COMPLETE BLOOD COUNT 0555452 PLT 244 10e9/L 12/20/19 14 Unknown COMPLETE BLOOD COUNT 9871687 MPV 9.4 fL 4 Unknown COMPLETE BLOOD COUNT 5212661 PABLITO % 58.5 % 4 Unknown COMPLETE BLOOD COUNT 0024324 LY % 30.8 % 4 Unknown COMPLETE BLOOD COUNT 8921425 MON % 8.2 % 4 Unknown COMPLETE BLOOD COUNT 3862612 EOS % 2.0 % 4 Unknown COMPLETE BLOOD COUNT 9456030 BASO % 0.5 % 4 Unknown COMPLETE BLOOD COUNT 5520096 RDW 13.6 % 4 Unknown COMPLETE BLOOD COUNT 3866241 ABS PABLITO 3.28 10e9/L 014 Unknown COMPLETE BLOOD COUNT 0818697 ABS LYMPH 1.72 10e9/L 014 Unknown COMPLETE BLOOD COUNT 6726730 ABS MONO 0.46 10e9/L 014 Unknown COMPLETE BLOOD COUNT 2493840 ABS EOS 0.11 10e9/L 014 Unknown COMPLETE BLOOD COUNT 7732487 ABS BASO 0.03 10e9/L 014 Unknown COMPLETE BLOOD COUNT 1327728 RDW-SD 43.6 fL 4 Unknown FREE T4 03200 FREE T4 1.26 NG/DL 12/19/2013 Unknown COMPREHENSIVE METABOLIC 86979 AST 18 U/L 2013 Unknown COMPREHENSIVE METABOLIC 22740 ALT 22 IU/L 2013 Unknown COMPREHENSIVE METABOLIC 49351 BUN 11 MG/DL 2013 Unknown COMPREHENSIVE METABOLIC 10832 ALBUMIN 4.7 GM/DL 2013 Unknown COMPREHENSIVE METABOLIC 63755 CHLORIDE 108 MMOL/L 12/19 Unknown COMPREHENSIVE METABOLIC 07520 BILI TOT 0.3 MG/DL 2013 Unknown COMPREHENSIVE METABOLIC 99994 ALK PHOS 67 U/L 2013 Unknown COMPREHENSIVE METABOLIC 22846 SODIUM 141 MMOL/L 12/19 Unknown COMPREHENSIVE METABOLIC 30366 CREATININE 0.67 MG/DL 08/2013 Unknown COMPREHENSIVE METABOLIC 75520 CALCIUM 9.4 MG/DL 2013 Unknown COMPREHENSIVE METABOLIC 47314 POTASSIUM 4.1 MMOL/L 12/19 Unknown COMPREHENSIVE METABOLIC 80880 PROT TOT 7.0 GM/DL 2013 Unknown COMPREHENSIVE METABOLIC 72340 Glucose 94 MG/DL 2013 Unknown COMPREHENSIVE METABOLIC 00235 BICARB 27 MMOL/L 2013 Unknown COMPREHENSIVE METABOLIC 72312 ANION GAP 6 MEQ/L 2013 Unknown THYROID STIMULATING HORMONE 09463 TSH 0.547 uIU/ML 12/19/2013 Unknown GFR CALC 6918966 GFR AA >60 ML/MIN 02/03/2011 Unknown GFR CALC 2297000 GFR NON-AA >60 ML/MIN 02/03/2011 Unknown THYROID STIMULATING HORMONE 06170 TSH 0.818 uIU/ML 02/03/2011 Unknown COMPLETE BLOOD COUNT 99658 WBC 7.7 10e9/L 02/04/20 11 Unknown COMPLETE BLOOD COUNT 56241 RBC 4.23 10e12/L 2010 Unknown COMPLETE BLOOD COUNT 03753 HGB 11.9 g/dL 1 Unknown COMPLETE BLOOD COUNT 56723 HCT DET 36.5 % 1 Unknown COMPLETE BLOOD COUNT 73337 MCV 86.3 fL 1 Unknown COMPLETE BLOOD COUNT 88311 MCH 28.1 pg 1 Unknown COMPLETE BLOOD COUNT 60916 MCHC 32.6 g/dL 1 Unknown COMPLETE BLOOD COUNT 62538 PLT 244 10e9/L 02/04/20 11 Unknown COMPLETE BLOOD COUNT 49435 MPV 8.7 fL 1 Unknown COMPLETE BLOOD COUNT 96519 PABLITO % 58.9 % 1 Unknown COMPLETE BLOOD COUNT 58921 LY % 31.1 % 1 Unknown COMPLETE BLOOD COUNT 74255 MON % 7.9 % 1 Unknown COMPLETE BLOOD COUNT 33592 EOS % 1.8 % 1 Unknown COMPLETE BLOOD COUNT 86269 BASO % 0.3 % 1 Unknown COMPLETE BLOOD COUNT 97215 RDW 14.7 % 1 Unknown COMPLETE BLOOD COUNT 25654 ABS PABLITO 4.54 10e9/L 011 Unknown COMPLETE BLOOD COUNT 31515 ABS LYMPH 2.39 10e9/L 011 Unknown COMPLETE BLOOD COUNT 53056 ABS MONO 0.61 10e9/L 011 Unknown COMPLETE BLOOD COUNT 62710 ABS EOS 0.14 10e9/L 011 Unknown COMPLETE BLOOD COUNT 93947 ABS BASO 0.02 10e9/L 011 Unknown COMPLETE BLOOD COUNT 13350 RDW-SD 45.1 fL 1 Unknown COMPREHENSIVE METABOLIC 49916 AST 16 U/L 2010 Unknown COMPREHENSIVE METABOLIC 04858 ALT 21 IU/L 2010 Unknown COMPREHENSIVE METABOLIC 96876 BUN 9 MG/DL 2010 Unknown COMPREHENSIVE METABOLIC 73963 ALBUMIN 4.5 GM/DL 2010 Unknown COMPREHENSIVE METABOLIC 92543 CHLORIDE 104 MMOL/L 02/03 Unknown COMPREHENSIVE METABOLIC 89824 BILI TOT 0.2 MG/DL 2010 Unknown COMPREHENSIVE METABOLIC 98311 ALK PHOS 65 U/L 2010 Unknown COMPREHENSIVE METABOLIC 89575 SODIUM 137 MMOL/L 02/03 Unknown COMPREHENSIVE METABOLIC 07187 CREATININE 0.64 MG/DL 01/16 Unknown COMPREHENSIVE METABOLIC 03643 CALCIUM 8.8 MG/DL 2010 Unknown COMPREHENSIVE METABOLIC 31746 POTASSIUM 3.8 MMOL/L 02/03 Unknown COMPREHENSIVE METABOLIC 11543 PROT TOT 6.7 GM/DL 2010 Unknown COMPREHENSIVE METABOLIC 53648 Glucose 88 MG/DL 2010 Unknown COMPREHENSIVE METABOLIC 55451 BICARB 26 MMOL/L 2010 Unknown COMPREHENSIVE METABOLIC 55548 ANION GAP 7 MEQ/L 2010 Unknown FREE T4 96522 FREE T4 1.24 NG/DL 02/03/2011 Unknown Procedures Procedure Codes Date CEFTRIAXONE SODIUM INJECTION CPT-4: J0696 05/03/2019 THER/PROPH/DIAG INJ SC/IM CPT-4: 81078 05/03/2019 CEFTRIAXONE SODIUM INJECTION CPT-4: J0696 05/02/2019 THER/PROPH/DIAG INJ SC/IM CPT-4: 05469 05/02/2019 DEXAMETHASONE SODIUM PHOS CPT-4: J1100 10/19/2018 THER/PROPH/DIAG INJ SC/IM CPT-4: 63553 10/19/2018 URINE CULTURE/ COLONY COUNT CPT-4: 79177 10/19/2018 URINALYSIS NONAUTO W/O SCOPE CPT-4: 83869 10/19/2018 THROAT CULTURE CPT-4: 44960 07/29/2018 STREP A ASSAY W/OPTIC CPT-4: 81056 07/26/2018 SPECIMEN HANDLING OFFICE-LAB CPT-4: 43877 07/06/2018 OCCULT BLOOD FECES CPT-4: 83496 07/06/2018 ROUTINE VENIPUNCTURE CPT-4: 45597 12/19/2013 ASSAY OF FREE THYROXINE CPT-4: 71768 12/19/2013 ASSAY THYROID STIM HORMONE CPT-4: 65534 12/19/2013 COMPREHEN METABOLIC PANEL CPT-4: 60912 12/19/2013 COMPLETE CBC W/AUTO DIFF WBC CPT-4: 14661 12/19/2013 LIPID PANEL CPT-4: 79100 12/19/2013 OCCULT BLOOD FECES CPT-4: 50757 02/03/2011 SPECIMEN HANDLING OFFICE-LAB CPT-4: 80707 12/25/2009 OCCULT BLOOD FECES CPT-4: 89993 12/25/2009 Vital Signs Date Vital 05/03/2019 Blood Pressure 1: 122/80 Code: 8480-6 [...] 1: 130/78 Code: 8480-6 BMI: 30.7 Code: 86109-8 Heart Rate 1: 76 bpm Height: 5'9" Respiratory Rate: 20 bpm Temperature: 36 .8 (C) / 98.3 (F) Weight: 208 lbs 06/30/2017 Blood Pressure 1: 126/80 Code: 8480-6 BMI: 30.9 Code: 39733-8 Heart Rate 1: 72 bpm Height: 5'9" Respiratory Rate: 20 bpm Temperature: 36 .7 (C) / 98.0 (F) Weight: 209 lbs 02/04/2016 Blood Pressure 1: 122/80 Code: 8480-6 BMI: 31.3 Code: 29880-0 Heart Rate 1: 80 bpm Height: 5'9" Respiratory Rate: 20 bpm Temperature: 36 .6 (C) / 97.8 (F) Weight: 212 lbs 12/19/2013 Blood Pressure 1: 116/78 Code: 8480-6 BMI: 30.1 Code: 55244-4 Heart Rate 1: 76 bpm Height: 5'9" Respiratory Rate: 20 bpm Temperature: 36 .8 (C) / 98.3 (F) Weight: 204 lbs 10/27/2012 Blood Pressure 1: 114/70 Code: 8480-6 BMI: 30.3 Code: 32327-5 Heart Rate 1: 68 bpm Height: 5'9" Respiratory Rate: 20 bpm Temperature: 36 .8 (C) / 98.3 (F) Weight: 205 lbs 09/01/2012 Blood Pressure 1: 118/82 Code: 8480-6 BMI: 30.9 Code: 19794-6 Heart Rate 1: 80 bpm Height: 5'9" Respiratory Rate: 20 bpm Temperature: 36 .8 (C) / 98.2 (F) Weight: 209 lbs 02/03/2011 Blood Pressure 1: 118/76 Code: 8480-6 BMI: 29.5 Code: 11188-8 Heart Rate 1: 72 bpm Height: 5'9" Weight: 200 lbs 12/25/2009 Blood Pressure 1: 122/76 Code: 8480-6 BMI: 29.5 Code: 15395-8 Heart Rate 1: 80 bpm Height: 5'9" Temperature: 36.8 (C) / 98.3 (F) Weight: 200 lbs Functional Status No Functional Status data Reason For Visit Reason For Visit Effective Dates Notes follow up 05/03/2019 cellulitis 05/02/2019 weight check [...] 11/24 Encounters Encounter Performer Location Codes Date ([id number]) OFFICE/OUTPATIENT VISIT EST Diagnosis: Cellulitis of right breast[ICD10: N61.0] J[facility] CPT-4: 57508 05/03/2019 ([id number]) OFFICE/OUTPATIENT VISIT EST Diagnosis: Cellulitis of right breast[ICD10: N61.0] Josesito [facility] CPT-4: 53067 05/02/2019 ([id number]) OFFICE/OUTPATIENT VISIT EST Diagnosis: Edema, unspecified[ICD10: R60.9] Diagnosis: Adverse effect of unspecified drugs, medicaments and biological substances, initial encounter[ICD10: T50.905A] Diagnosis: Gross hematuria[ICD10: R31.0] Josesito [facility] CPT-4: 76094 10/19/2018 ([id number]) OFFICE/OUTPATIENT VISIT EST Diagnosis: URI, ACUTE[ICD10: J06.9] Josesito [facility] CPT-4: 34601 07/29/2018 ([id number]) OFFICE/OUTPATIENT VISIT EST Diagnosis: Acute pharyngitis, unspecified[ICD10: J02.9] Diagnosis: URI, ACUTE[ICD10: J06.9] Josesito [facility] CPT-4: 64132 07/26/2018 ([id number]) PREV VISIT EST AGE 40-64 Diagnosis: Encounter for general adult medical examination without abnormal findings[ICD10: Z00.00] Diagnosis: Encounter for gynecological examination (general) (routine) without abnormal findings[ICD10: Z01.419] Diagnosis: Menopausal and female climacteric states[ICD10: N95.1] Diagnosis: Other abnormal and inconclusive findings on diagnostic imaging of breast[ICD10: R92.8] Josesito [facility] CPT-4: 00921 07/06/2018 ([id number]) PREV VISIT EST AGE 40-64 Diagnosis: Encounter for general adult medical examination without abnormal findings[ICD10: Z00.00] Diagnosis: Encounter for gynecological examination (general) (routine) without abnormal findings[ICD10: Z01.419] Josesito [facility] CPT-4: 27655 06/30/2017 ([id number]) PREV VISIT EST AGE 40-64 Diagnosis: Encounter for general adult medical examination without abnormal findings[ICD10: Z00.00] Josesito [facility] CPT-4: 27112 02/04/2016 ([id number]) PREV VISIT EST AGE 40-64 Diagnosis: ROUTINE MEDICAL EXAM[ICD9: V70.0] Diagnosis: MENOPAUSAL DISORDER[ICD9: 627.9] Josesito [facility] CPT-4: 74917 12/19/2013 OFFICE/OUTPATIENT VISIT EST Diagnosis: MENOPAUSAL DISORDER[ICD9: 627.9] Josesito [facility]AR[facility] CPT-4: 75802 10/27/2012 ([id number]) PREV VISIT EST AGE 40-64 Diagnosis: ROUTINE MEDICAL EXAM[ICD9: V70.0] Diagnosis: MENOPAUSAL DISORDER[ICD9: 627.9] Josesito [facility] CPT-4: 64237 09/01/2012 PREV VISIT EST AGE 40-64 Diagnosis: ROUTINE GYNE EXAM[ICD9: V72.31] Diagnosis: ROUTINE MEDICAL EXAM[ICD9: V70.0] Josesito [facility] CPT-4: 63681 02/03/2011 SPECIMEN HANDLING Diagnosis: [ICD9: ] Diagnosis: [ICD9: ] Josesito [facility] CPT-4: 9900 0 02/03/2011 ([id number]) PREV VISIT, EST, AGE 40-64 Josesito [facility] CPT-4: 15120 12/25/2009 Plan of Care Planned Activity Notes Codes Status Date Visit Diagnosis Plan: Cellulitis of right breast Discu ssion: Repeat Rocephin 1gm IM today Continue clindamycin Recheck tomorrow ICD-9 : 611.0 ICD-10 : N61.0 05/03/2019 Visit Diagnosis Plan: Cellulitis of right breast Discu ssion: Rocephin 1gm IM now Start clindamycin with a probiotic Recheck tomorrow ICD-9 : 611.0 ICD-10 : N61.0 05/02/2019 Appointment: Josesito Del Rosario tel: [address] [place], [place] [phone] ACUTE ILLNESS 05/02/2019 Patient Education: clindamycin HCl- [employer] Coupon [id number] [email or web address] Completed 05/02/2019 Care Plan: TRANSVAGINAL US NON-OB LOINC : 96604-2 Pending 10/21/2018 Appointment: Josesito Del Rosario WPtel: [address] [place], [place] [phone] WT CHECK 10/20/2018 Visit Diagnosis Plan: Adverse [...] R60.9 10/19/2018 Appointment: Josesito Del Rosario WPtel: [address] [place], [place] [phone] 10/19/2018 Appointment: Josesito Del Rosario WPtel: [address] [place], [place] [phone] US Per CANCELED 08/02/2018 Visit Diagnosis Plan: URI, ACUTE Discussion: CXR negat johnna Lungs clear Only physical exam finding is injection on throat and mild fluid behind ears Will increase zyrtec to BID Throat Culture Notify surgeon of current course ICD-9 : 465.9 ICD-10 : J06.9 07/29/2018 Appointment: Josesito Del Rosario WPtel: [address] [place], [place] [phone] WORK IN 07/29/2018 Visit Diagnosis Plan: Acute pharyngitis, unspecified D iscussion: Strep Negative Cover with Zithromax with upcoming surgery next week but if worsens will let us know and will have to postpone surgery ICD-9 : 462 ICD-10 : J02.9 07/26/2018 Visit NOS Plan: Plan Notes: Supportive care. Rest, Fluids... 07/26/2018 Appointment: Josesito Del Rosario WPtel: [facility] [id number] [place] I[place] 07/26/2018 Visit Diagnosis Plan: Encounter for gyne cological examination (general) (routine) without abnormal findings Discussion: Pap done ICD-9 : V72.31 ICD-10 : Z01.419 07/06/2018 Visit Diagnosis Plan: Other abnormal and inconclusive findings on diagnostic imaging of breast Discussion: Had left breast biopsy IsabelleJul 02 ICD-9 : 793.80 ICD-10 : R92.8 07/06/2018 Visit Diagnosis Plan: Encounter for gene ral adult medical examination without abnormal findings Discussion: Lab discussed Mediterranean diet Combo of cardio/weight bearing exercise ICD-9 : V70.0 ICD-10 : Z00.00 07/06/2018 Visit Diagnosis Plan: Menopausal and female climacteri c states Discussion: Stable on fluoxetine ICD-9 : 627.9 ICD-10 : N95.1 07/06/2018 Appointment: Josesito Del Rosario WPtel: [facility] [id number] P[facility] 07/06/2018 Care Plan: MAMMOGRAM BOTH BREASTS Diagnostic Mammogram of [place] Breast LOINC : 18131-6 Pending 06/24/2018 Care Plan: US EXAM CHEST [...] ICD-10 : Z01.419 06/30/2017 Appointment: Josesito Del Rosariotel: [address] [place], [place] [phone] [place] PAP 06/30/2017 Patient Education: Patient Medication Summary Completed 06/30/2017 Visit Plan: Update fasting lab Pap done Had mammogram Weight bearing exercise 02/04/2016 Appointment: Josesito Del Rosario WPtel: [address] [place] [address] [place] 01/30 confirmed~sl PAP 02/04/2016 Patient Education: Patient Medication Summary Completed 02/04/2016 Appointment: Josesito Del Rosario WPtel: [address] [place] [address] [place] RESCHEDULED 01/17/2016 Patient Education: Patient Medication Summary Completed 12/31/2015 Care Plan: MAMMOGRAM SCREENING LOINC : 2 6347-5 Pending 12/31/2015 Visit Plan: Try to decrease fluoxetine t o 10mg daily Check Mammo Check fasting lab Check Colonoscopy due to family hx of Colon Cancer 12/19/2013 Appointment: Josesito Del Rosario WPtel: [address] [place], [place] [phone] [place] 12/16 vm PAP 12/19/2013 Patient Education: Patient Medication Summary Completed 12/19/2013 Visit Plan: Long discussion about HRT--p t has Breast Ca on both sides--Discussed BRCA gene testing in Mom Will try higher dose of fluoxetine 10/27/2012 Appointment: Josesito Del Rosario WPtel: [address] [place], [place] [id number] [place] FOLLOW UP 10/27/2012 Patient Education: Patient Medication Summary Completed 10/27/2012 Visit Plan: Lab discussed Add fish oil 3 grams daily Long discussion about hormones Trial of fluoxetine 09/01/2012 Appointment: Josestio Del Rosario WPtel: [address] [place], [place] [id number] [place] PAP 09/01/2012 Patient Education: Patient Medication Summary Completed 09/01/2012 Visit Plan: Pap Done and Mammogram order ed Fasting lab ordered 02/03/2011 Appointment: Josesito Del Rosario WPtel: [id number] [facility] [id number] [place] PAP 02/03/2011 Patient Education: Patient Medication Summary Completed 02/03/2011 Visit Plan: Pap done Mammo done last wee k Lab discussed Discussed Bioidentical Hormones 12/25/2009 Appointment: Josesito Del Rosario WPtel: [phone] [facility] [id number] [place] PAP 12/25/2009 Patient Education: Patient Medication Summary Completed 12/25/2009 Instructions Comment . Update fasting lab Pap done Had mammogram Weight bearing exercise . Try to decrease fluoxetine to 10mg kobe ly Check Mammo Check fasting lab Check Colonoscopy due to family hx of Colon Cancer . Long discussion about HRT--pt has [place] st Ca on both sides--Discussed BRCA gene [...]
--- OUTSIDE RECORDS SUMMARY | 2019-05-15 23:43 | XMS REPORT | CCD ---
Author Author Caridad Del Rosario D.O. Organization JOSESITO DEL ROSARIO DO [facility] Address [address] [place] [address] Phone Care Team Providers Care Shop Superintendent Name Role Phone PP Unavailable CCM Unavailable Summary Purpose Interface Exchange Insurance Providers Payer name Policy type / Coverage type Covered green party ID Effective Begin Date Effective End Date [facility] Commercial Insurance [id number] Un known Family History Family History data [...] Instructions clindamycin HCl 300 mg capsule RxNorm: 131259 1 Capsule (s) Oral three times a day 05/02/2019 05/09/2019 Active fluoxetine 20 mg tablet RxNorm: 245830 1 Tablet(s) Oral QD 03/29/20 19 09/24/2019 Active Zithromax Z-Khoi 250 mg tablet RxNorm: 885970 Tablet(s) Oral as directed 03/25/2019 03/25/2019 Inactive Zithromax Z-Khoi 250 mg tablet RxNorm: 339173 Tablet(s) Oral as directed 03/25/2019 03/24/2019 Inactive famotidine 20 mg tablet RxNorm: 025977 1 Tablet(s) PO BID 10/19/2018 02/15/2019 Inactive Tessalon Perles 100 mg capsule RxNorm: 040787 1 Capsule (s) PO TID as needed for cough 07/26/2018 10/18/2018 Inactive Zithromax 500 mg tablet RxNorm: 450094 1 Tablet(s) PO QD 07/26/2018 0 07/25/2018 Inactive Zithromax 500 mg tablet RxNorm: 839165 1 Tablet(s) PO QD 07/26/2018 0 07/30/2018 Inactive Xanax 0.25 mg tablet RxNorm: 907589 1/2-1 Tablet(s) PO BID 06/01/19 19 No Stop Date Active fluoxetine 20 mg tablet RxNorm: 619971 1 Tablet(s) PO Q D Due for annual appointment in 06/01/2018 02/25/2019 Inactive fluoxetine 20 mg tablet RxNorm: 973172 1 Tablet(s) PO Q D Due for annual in [facility] 06/01/2018 02/25/2019 Inactive fluoxetine 20 mg tablet RxNorm: 156004 1 Tablet(s) PO QD 08/05/2017 1 07/02/2017 Inactive fluoxetine 20 mg tablet RxNorm: 141703 1 Tablet(s) PO QD 08/04/2017 0 08/04/2017 Inactive Xanax 0.25 mg tablet RxNorm: 270817 1/2-1 Tablet(s) PO BID 07/02/19 18 05/31/2018 Inactive fluoxetine 10 mg capsule RxNorm: 518768 2 Capsule(s) PO QAM 018 07/05/2018 Inactive Generic For:PROZAC 10 MG PUL VULE 09/24/2015 10:15:02 AM N O T I C E Last quantity doesn't match original quantity fluoxetine 10 mg capsule RxNorm: 483770 2 Capsule(s) PO QAM Routine wellness due after 02-04-17 12/03/2016 03/02/2017 Inactive Generic For:PROZ AC 10 MG PULVULE 09/24/2015 10:15:02 AM N O T I C E Last quantity doesn't match original quantity Xanax 0.25 mg tablet RxNorm: 163020 1/2-1 Tablet(s) PO BID 02/05/20 16 07/01/2017 Inactive fluoxetine 10 mg capsule RxNorm: 902085 2 Capsule(s) PO QAM 016 07/25/2018 Inactive fluoxetine 10 mg capsule RxNorm: 662730 2 Capsule(s) PO QAM 016 12/03/2016 Inactive Generic For:PROZAC 10 MG PUL VULE 09/24/2015 10:15:02 AM N O T I C E Last quantity doesn't match original quantity fluoxetine 10 mg capsule RxNorm: 271436 2 Capsule(s) PO QAM TAKE 2 CAPSULES BY MOUTH EVERY MORNING 11/16/2015 02/03/2016 Inactive Generic For: PROZAC 10 MG PULVULE 09/24/2015 10:15:02 AM N O T I C E Last quantity doesn't match original quantity fluoxetine 10 mg capsule RxNorm: 271449 2 Capsule(s) PO QAM TAKE 2 CAPSULES BY MOUTH EVERY MORNING 09/24/2015 11/15/2015 Inactive Generic For: PROZAC 10 MG PULVULE 09/24/2015 10:15:02 AM N O T I C E Last quantity doesn't match original quantity fluoxetine 10 mg capsule RxNorm: 440013 2 Capsule(s) PO QAM 015 09/24/2015 Inactive fluoxetine 10 mg capsule RxNorm: 970962 2 Capsule(s) PO QAM 015 07/28/2018 Inactive fluoxetine 10 mg capsule RxNorm: 413497 2 Capsule(s) PO QAM 014 05/21/2014 Inactive Xanax 0.25 mg tablet RxNorm: 889676 1/2-1 Tablet(s) PO BID 04/21/20 13 No Stop Date Active fluoxetine 10 mg capsule RxNorm: 677835 2 Capsule(s) PO QAM 013 01/24/2013 Inactive fluoxetine 10 mg capsule RxNorm: 606763 1 Capsule(s) PO QAM 013 10/26/2012 Inactive Multivitamin & Mineral Formula Tab RxNorm: 1 Tablet(s) PO QD No St art Date Active Zyrtec 10 mg tablet RxNorm: 7136434 1 Tablet(s) PO BID No Start Date Active Prilosec OTC 20 mg tablet,delayed release RxNorm: 481437 1 Tabl et(s) PO QD No Start Date Active Tessalon Perles 100 mg capsule RxNorm: 182182 1 Capsule (s) PO TID as needed for cough No Start Date 07/25/2018 Inactive Biotin Oral RxNorm: Oral No Start Date 10/18/2018 Inactive Zithromax Z-Khoi oral RxNorm: 63377 oral No Start Date 03/24/2019 Inactive Echinacea ACZ oral RxNorm: oral No Start Date 07/28/2018 Inacti ve Vitamin D3 1000 units Capsule RxNorm: 1 Capsule(s) PO QD No St art Date 07/28/2018 Inactive Black Cohosh Oral RxNorm: Oral No Start Date 07/28/2018 Inactiv e Xanax 0.25 mg tablet RxNorm: 243419 1/2-1 Tablet(s) PO BID No Start Date 04/20/2013 Inactive Zyrtec 10 mg tablet RxNorm: 8474137 1 Tablet(s) PO QD as needed No Start Date 10/18/2018 Inactive Vitamin C 1,000 mg tablet RxNorm: 081622 1 Tablet(s) PO QD No Start Date 10/18/2018 Inactive fluoxetine 20 mg tablet RxNorm: 792828 1 Tablet(s) PO QD No Start D ate 08/03/2017 Inactive Medication Administered No Medication Administered data Immunizations Vaccine Codes Date Status Influenza CVX: 141 04/08/2019 Influenza CVX: 141 04/26/2018 Results Observation Observation Code Item Item Code Result Date S ervice Location CULTURE, URINE, ROUTINE 395 CULTURE, URINE, ROUTINE 10/20/2018 [facility] [address] [place] [address] GFR CALC 4830289 GFR Non Afr Amr >60 mL/min 07/05/2018 Un known GFR CALC 1845783 GFR Afr Amr >60 mL/min 07/05/2018 Unknow n FREE T4 19681 T4 Free 0.94 ng/dL 07/05/2018 Unknown [facility] 31051 Cholesterol 165 mg/dL 07/05/2018 Unkno wn [facility] 73690 Triglyceride 108 mg/dL 07/05/2018 Unkn own [facility] 45691 HDL CHOLESTEROL 50 mg/dL 07/05/2018 U nknown [facility] 81807 Chol/HDL Ratio 3.30 ratio 07/05/2018 U nknown [facility] 61988 NON-HDL Chol 115 mg/dL 07/05/2018 Unkn own [facility] 48535 LDL Cholesterol 93 mg/dL 07/05/2018 U nknown THYROID STIMULATING HORMONE 56866 TSH 0.937 uIU/mL 07/05/2018 Unknown COMPREHENSIVE METABOLIC 02841 AST 19 U/L 2018 Unknown COMPREHENSIVE METABOLIC 17953 ALT 21 U/L 2018 Unknown COMPREHENSIVE METABOLIC 08577 BUN 10 mg/dL 2018 Unknown COMPREHENSIVE METABOLIC 57084 ALBUMIN 4.3 g/dL 2018 Unknown COMPREHENSIVE METABOLIC 50995 CHLORIDE 106 mmol/L 07/05 Unknown COMPREHENSIVE METABOLIC 50419 Bili Total 0.3 mg/dL 07/05 Unknown COMPREHENSIVE METABOLIC 48365 ALK PHOS 59 U/L 2018 Unknown COMPREHENSIVE METABOLIC 44911 SODIUM 140 mmol/L 07/05 Unknown COMPREHENSIVE METABOLIC 36187 CREATININE 0.68 mg/dL 06/18 Unknown COMPREHENSIVE METABOLIC 95962 CALCIUM 9.2 mg/dL 2018 Unknown COMPREHENSIVE METABOLIC 24852 POTASSIUM 4.0 mmol/L 07/05 Unknown COMPREHENSIVE METABOLIC 78462 Total Protein 7.1 g/dL Unknown COMPREHENSIVE METABOLIC 29542 Glucose 84 mg/dL 2018 Unknown COMPREHENSIVE METABOLIC 38636 Bicarbonate 27 mmol/L 06/18 Unknown COMPREHENSIVE METABOLIC 17129 AGAP 7 mmol/L 2018 Unknown COMPLETE BLOOD COUNT 1878549 WBC 6.0 10e9/L 07/05/19 19 Unknown COMPLETE BLOOD COUNT 6844848 RBC 4.36 10e12/L 2018 Unknown COMPLETE BLOOD COUNT 2097901 HEMOGLOBIN 12.9 g/dL 07/05/19 19 Unknown COMPLETE BLOOD COUNT 6565550 HEMATOCRIT 39.1 % 07/05/19 19 Unknown COMPLETE BLOOD COUNT 1759657 MCV 89.7 fL 9 Unknown COMPLETE BLOOD COUNT 3411750 MCH 29.6 pg 9 Unknown COMPLETE BLOOD COUNT 0303165 MCHC 33.0 g/dL 9 Unknown COMPLETE BLOOD COUNT 1785248 PLATELET COUNT 270 10e9/L Unknown COMPLETE BLOOD COUNT 7203734 Mean Plt Volume 9.0 fL Unknown COMPLETE BLOOD COUNT 9290300 Neut Auto 53.8 % 9 Unknown COMPLETE BLOOD COUNT 3294582 Lymph Auto 35.8 % 07/05/19 19 Unknown COMPLETE BLOOD COUNT 3866021 Loíza Auto 7.9 % 9 Unknown COMPLETE BLOOD COUNT 4197579 RDW 13.9 % 9 Unknown COMPLETE BLOOD COUNT 9619939 Eos Auto 2.0 % 9 Unknown COMPLETE BLOOD COUNT 7283333 Baso Auto 0.5 % 9 Unknown COMPLETE BLOOD COUNT 2036557 Neutrophil Abs 3.23 10e9/L Unknown COMPLETE BLOOD COUNT 4514204 Lymphocyte Abs 2.15 10e9/L Unknown COMPLETE BLOOD COUNT 9140578 Monocyte Abs 0.47 10e9/L 06/18 Unknown COMPLETE BLOOD COUNT 7782157 Eosinophil Abs 0.12 10e9/L Unknown COMPLETE BLOOD COUNT 8196956 RDW-SD 44.5 fL 9 Unknown COMPLETE BLOOD COUNT 1399264 Basophil Abs 0.03 10e9/L 06/18 Unknown FREE T4 68039 T4 Free 1.21 ng/dL 06/30/2017 Unknown GFR CALC 1781005 GFR Non Afr Amr >60 mL/min 06/30/2017 Un known GFR CALC 8633563 GFR Afr Amr >60 mL/min 06/30/2017 Unknow n THYROID STIMULATING HORMONE 98983 TSH 0.873 uIU/mL 06/30/2017 Unknown L[facility] GROUP 96560 Cholesterol 175 mg/dL 06/30/2017 Unkno wn [facility] 70962 Triglyceride 129 mg/dL 06/30/2017 Unkn own [facility] GROUP 06741 HDL CHOLESTEROL 51 06/30/2017 U nknown [facility] 04841 Chol/HDL Ratio 3.43 ratio 06/30/2017 U nknown [facility] 87200 NON-HDL Chol 124 mg/dL 06/30/2017 Unkn own [facility] GROUP 69373 LDL Cholesterol 98 mg/dL 06/30/2017 U nknown COMPLETE BLOOD COUNT 6875402 WBC 6.2 10e9/L 06/30/19 18 Unknown COMPLETE BLOOD COUNT 6620616 RBC 4.58 10e12/L 2017 Unknown COMPLETE BLOOD COUNT 1784355 HEMOGLOBIN 13.3 g/dL 06/30/19 18 Unknown COMPLETE BLOOD COUNT 3672992 HEMATOCRIT 41.6 % 06/30/19 18 Unknown COMPLETE BLOOD COUNT 0453793 MCV 90.8 fL 8 Unknown COMPLETE BLOOD COUNT 6500635 MCH 29.0 pg 8 Unknown COMPLETE BLOOD COUNT 0241023 MCHC 32.0 g/dL 8 Unknown COMPLETE BLOOD COUNT 1161349 PLATELET COUNT 271 10e9/L Unknown COMPLETE BLOOD COUNT 9826341 Mean Plt Volume 8.9 fL Unknown COMPLETE BLOOD COUNT 7459873 Neut Auto 53.5 % 8 Unknown COMPLETE BLOOD COUNT 1543386 Lymph Auto 36.4 % 06/30/19 18 Unknown COMPLETE BLOOD COUNT 9449856 Loíza Auto 8.1 % 8 Unknown COMPLETE BLOOD COUNT 4463814 RDW 13.4 % 8 Unknown COMPLETE BLOOD COUNT 5938831 Eos Auto 1.5 % 8 Unknown COMPLETE BLOOD COUNT 0478154 Baso Auto 0.5 % 8 Unknown COMPLETE BLOOD COUNT 9413583 Neutrophil Abs 3.32 10e9/L Unknown COMPLETE BLOOD COUNT 5378941 Lymphocyte Abs 2.26 10e9/L Unknown COMPLETE BLOOD COUNT 5385386 Monocyte Abs 0.50 10e9/L 06/18 Unknown COMPLETE BLOOD COUNT 8322364 Eosinophil Abs 0.09 10e9/L Unknown COMPLETE BLOOD COUNT 9238029 RDW-SD 43.9 fL 8 Unknown COMPLETE BLOOD COUNT 8065512 Basophil Abs 0.03 10e9/L 06/18 Unknown COMPREHENSIVE METABOLIC 80001 AST 19 U/L 2017 Unknown COMPREHENSIVE METABOLIC 94556 ALT 22 U/L 2017 Unknown COMPREHENSIVE METABOLIC 62686 BUN 12 mg/dL 2017 Unknown COMPREHENSIVE METABOLIC 00908 ALBUMIN 4.9 g/dL 2017 Unknown COMPREHENSIVE METABOLIC 11448 CHLORIDE 106 mmol/L 06/30 Unknown COMPREHENSIVE METABOLIC 68221 Bili Total 0.4 mg/dL 06/30 Unknown COMPREHENSIVE METABOLIC 16984 ALK PHOS 66 U/L 2017 Unknown COMPREHENSIVE METABOLIC 17313 SODIUM 143 mmol/L 06/30 Unknown COMPREHENSIVE METABOLIC 38775 CREATININE 0.71 mg/dL 06/18 Unknown COMPREHENSIVE METABOLIC 92270 CALCIUM 9.9 mg/dL 2017 Unknown COMPREHENSIVE METABOLIC 81449 POTASSIUM 4.1 mmol/L 06/30 Unknown COMPREHENSIVE METABOLIC 70407 Total Protein 8.0 g/dL Unknown COMPREHENSIVE METABOLIC 87611 Glucose 87 mg/dL 2017 Unknown COMPREHENSIVE METABOLIC 79557 Bicarbonate 27 mmol/L 06/18 Unknown COMPREHENSIVE METABOLIC 64747 AGAP 10 mmol/L 2017 Unknown GFR CALC 1921966 GFR AA >60 ML/MIN 12/19/2013 Unknown GFR CALC 5220343 GFR NON-AA >60 ML/MIN 12/19/2013 Unknown LIPID GROUP 71551 HDL TEST 52 MG/DL 12/19/2013 Unknown LIP[facility] GROUP 95955 TRIG 96 MG/DL 12/19/2013 Unknown L[facility] GROUP 23702 TEST LDL 98 MG/DL 12/19/2013 Unknown LIPID GROUP 10742 CHOL 169 MG/DL 12/19/2013 Unknown LIP[facility] GROUP 37807 RCHOL/HDL 3.25 RATIO 12/19/2013 Unknow n LIPID GROUP 43243 NON-HDL CH 117 MG/DL 12/19/2013 Unknow n COMPLETE BLOOD COUNT 1911349 WBC 5.6 10e9/L 12/20/19 14 Unknown COMPLETE BLOOD COUNT 8233106 RBC 4.45 10e12/L 2013 Unknown COMPLETE BLOOD COUNT 3818881 HGB 13.0 g/dL 4 Unknown COMPLETE BLOOD COUNT 2387299 HCT DET 39.9 % 4 Unknown COMPLETE BLOOD COUNT 9169640 MCV 89.7 fL 4 Unknown COMPLETE BLOOD COUNT 9871862 MCH 29.2 pg 4 Unknown COMPLETE BLOOD COUNT 3310577 MCHC 32.6 g/dL 4 Unknown COMPLETE BLOOD COUNT 1141269 PLT 244 10e9/L 12/20/19 14 Unknown COMPLETE BLOOD COUNT 7707531 MPV 9.4 fL 4 Unknown COMPLETE BLOOD COUNT 0245931 PABLITO % 58.5 % 4 Unknown COMPLETE BLOOD COUNT 3014273 LY % 30.8 % 4 Unknown COMPLETE BLOOD COUNT 9662580 MON % 8.2 % 4 Unknown COMPLETE BLOOD COUNT 4003373 EOS % 2.0 % 4 Unknown COMPLETE BLOOD COUNT 8855925 BASO % 0.5 % 4 Unknown COMPLETE BLOOD COUNT 5849297 RDW 13.6 % 4 Unknown COMPLETE BLOOD COUNT 5678224 ABS PABLITO 3.28 10e9/L 014 Unknown COMPLETE BLOOD COUNT 3697868 ABS LYMPH 1.72 10e9/L 014 Unknown COMPLETE BLOOD COUNT 6129782 ABS MONO 0.46 10e9/L 014 Unknown COMPLETE BLOOD COUNT 7985585 ABS EOS 0.11 10e9/L 014 Unknown COMPLETE BLOOD COUNT 8232216 ABS BASO 0.03 10e9/L 014 Unknown COMPLETE BLOOD COUNT 7285919 RDW-SD 43.6 fL 4 Unknown FREE T4 56661 FREE T4 1.26 NG/DL 12/19/2013 Unknown COMPREHENSIVE METABOLIC 70603 AST 18 U/L 2013 Unknown COMPREHENSIVE METABOLIC 54916 ALT 22 IU/L 2013 Unknown COMPREHENSIVE METABOLIC 48579 BUN 11 MG/DL 2013 Unknown COMPREHENSIVE METABOLIC 08719 ALBUMIN 4.7 GM/DL 2013 Unknown COMPREHENSIVE METABOLIC 12755 CHLORIDE 108 MMOL/L 12/19 Unknown COMPREHENSIVE METABOLIC 76102 BILI TOT 0.3 MG/DL 2013 Unknown COMPREHENSIVE METABOLIC 63961 ALK PHOS 67 U/L 2013 Unknown COMPREHENSIVE METABOLIC 43579 SODIUM 141 MMOL/L 12/19 Unknown COMPREHENSIVE METABOLIC 03167 CREATININE 0.67 MG/DL 08/2013 Unknown COMPREHENSIVE METABOLIC 87865 CALCIUM 9.4 MG/DL 2013 Unknown COMPREHENSIVE METABOLIC 91836 POTASSIUM 4.1 MMOL/L 12/19 Unknown COMPREHENSIVE METABOLIC 73159 PROT TOT 7.0 GM/DL 2013 Unknown COMPREHENSIVE METABOLIC 37439 Glucose 94 MG/DL 2013 Unknown COMPREHENSIVE METABOLIC 32346 BICARB 27 MMOL/L 2013 Unknown COMPREHENSIVE METABOLIC 46561 ANION GAP 6 MEQ/L 2013 Unknown THYROID STIMULATING HORMONE 52405 TSH 0.547 uIU/ML 12/19/2013 Unknown GFR CALC 1257575 GFR AA >60 ML/MIN 02/03/2011 Unknown GFR CALC 0427582 GFR NON-AA >60 ML/MIN 02/03/2011 Unknown THYROID STIMULATING HORMONE 43784 TSH 0.818 uIU/ML 02/03/2011 Unknown COMPLETE BLOOD COUNT 46369 WBC 7.7 10e9/L 02/04/20 11 Unknown COMPLETE BLOOD COUNT 90041 RBC 4.23 10e12/L 2010 Unknown COMPLETE BLOOD COUNT 65628 HGB 11.9 g/dL 1 Unknown COMPLETE BLOOD COUNT 49055 HCT DET 36.5 % 1 Unknown COMPLETE BLOOD COUNT 23240 MCV 86.3 fL 1 Unknown COMPLETE BLOOD COUNT 49107 MCH 28.1 pg 1 Unknown COMPLETE BLOOD COUNT 01275 MCHC 32.6 g/dL 1 Unknown COMPLETE BLOOD COUNT 72153 PLT 244 10e9/L 02/04/20 11 Unknown COMPLETE BLOOD COUNT 94937 MPV 8.7 fL 1 Unknown COMPLETE BLOOD COUNT 56967 PABLITO % 58.9 % 1 Unknown COMPLETE BLOOD COUNT 76342 LY % 31.1 % 1 Unknown COMPLETE BLOOD COUNT 13726 MON % 7.9 % 1 Unknown COMPLETE BLOOD COUNT 05903 EOS % 1.8 % 1 Unknown COMPLETE BLOOD COUNT 88033 BASO % 0.3 % 1 Unknown COMPLETE BLOOD COUNT 19269 RDW 14.7 % 1 Unknown COMPLETE BLOOD COUNT 68111 ABS PABLITO 4.54 10e9/L 011 Unknown COMPLETE BLOOD COUNT 27202 ABS LYMPH 2.39 10e9/L 011 Unknown COMPLETE BLOOD COUNT 86504 ABS MONO 0.61 10e9/L 011 Unknown COMPLETE BLOOD COUNT 98813 ABS EOS 0.14 10e9/L 011 Unknown COMPLETE BLOOD COUNT 22921 ABS BASO 0.02 10e9/L 011 Unknown COMPLETE BLOOD COUNT 01429 RDW-SD 45.1 fL 1 Unknown COMPREHENSIVE METABOLIC 62377 AST 16 U/L 2010 Unknown COMPREHENSIVE METABOLIC 17270 ALT 21 IU/L 2010 Unknown COMPREHENSIVE METABOLIC 77489 BUN 9 MG/DL 2010 Unknown COMPREHENSIVE METABOLIC 72793 ALBUMIN 4.5 GM/DL 2010 Unknown COMPREHENSIVE METABOLIC 65871 CHLORIDE 104 MMOL/L 02/03 Unknown COMPREHENSIVE METABOLIC 26381 BILI TOT 0.2 MG/DL 2010 Unknown COMPREHENSIVE METABOLIC 19078 ALK PHOS 65 U/L 2010 Unknown COMPREHENSIVE METABOLIC 51516 SODIUM 137 MMOL/L 02/03 Unknown COMPREHENSIVE METABOLIC 86687 CREATININE 0.64 MG/DL 01/16 Unknown COMPREHENSIVE METABOLIC 74602 CALCIUM 8.8 MG/DL 2010 Unknown COMPREHENSIVE METABOLIC 85386 POTASSIUM 3.8 MMOL/L 02/03 Unknown COMPREHENSIVE METABOLIC 56229 PROT TOT 6.7 GM/DL 2010 Unknown COMPREHENSIVE METABOLIC 83724 Glucose 88 MG/DL 2010 Unknown COMPREHENSIVE METABOLIC 05599 BICARB 26 MMOL/L 2010 Unknown COMPREHENSIVE METABOLIC 96832 ANION GAP 7 MEQ/L 2010 Unknown FREE T4 94676 FREE T4 1.24 NG/DL 02/03/2011 Unknown Procedures Procedure Codes Date CEFTRIAXONE SODIUM INJECTION CPT-4: J0696 05/04/2019 THER/PROPH/DIAG INJ SC/IM CPT-4: 60491 05/04/2019 CEFTRIAXONE SODIUM INJECTION CPT-4: J0696 05/03/2019 THER/PROPH/DIAG INJ SC/IM CPT-4: 31432 05/03/2019 CEFTRIAXONE SODIUM INJECTION CPT-4: J0696 05/02/2019 THER/PROPH/DIAG INJ SC/IM CPT-4: 80975 05/02/2019 DEXAMETHASONE SODIUM PHOS CPT-4: J1100 10/19/2018 THER/PROPH/DIAG INJ SC/IM CPT-4: 75368 10/19/2018 URINE CULTURE/ COLONY COUNT CPT-4: 05351 10/19/2018 URINALYSIS NONAUTO W/O SCOPE CPT-4: 76300 10/19/2018 THROAT CULTURE CPT-4: 37266 07/29/2018 STREP A ASSAY W/OPTIC CPT-4: 73452 07/26/2018 SPECIMEN HANDLING OFFICE-LAB CPT-4: 55737 07/06/2018 OCCULT BLOOD FECES CPT-4: 66871 07/06/2018 ROUTINE VENIPUNCTURE CPT-4: 05418 12/19/2013 ASSAY OF FREE THYROXINE CPT-4: 21469 12/19/2013 ASSAY THYROID STIM HORMONE CPT-4: 24477 12/19/2013 COMPREHEN METABOLIC PANEL CPT-4: 71177 12/19/2013 COMPLETE CBC W/AUTO DIFF WBC CPT-4: 37404 12/19/2013 LIPID PANEL CPT-4: 57843 12/19/2013 OCCULT BLOOD FECES CPT-4: 97978 02/03/2011 SPECIMEN HANDLING OFFICE-LAB CPT-4: 18855 12/25/2009 OCCULT BLOOD FECES CPT-4: 96434 12/25/2009 Vital Signs Date Vital 05/04/2019 Blood [...] 1: 130/78 Code: 8480-6 BMI: 30.7 Code: 39432-5 Heart Rate 1: 76 bpm Height: 5'9" Respiratory Rate: 20 bpm Temperature: 36 .8 (C) / 98.3 (F) Weight: 208 lbs 06/30/2017 Blood Pressure 1: 126/80 Code: 8480-6 BMI: 30.9 Code: 74484-6 Heart Rate 1: 72 bpm Height: 5'9" Respiratory Rate: 20 bpm Temperature: 36 .7 (C) / 98.0 (F) Weight: 209 lbs 02/04/2016 Blood Pressure 1: 122/80 Code: 8480-6 BMI: 31.3 Code: 80866-8 Heart Rate 1: 80 bpm Height: 5'9" Respiratory Rate: 20 bpm Temperature: 36 .6 (C) / 97.8 (F) Weight: 212 lbs 12/19/2013 Blood Pressure 1: 116/78 Code: 8480-6 BMI: 30.1 Code: 75376-8 Heart Rate 1: 76 bpm Height: 5'9" Respiratory Rate: 20 bpm Temperature: 36 .8 (C) / 98.3 (F) Weight: 204 lbs 10/27/2012 Blood Pressure 1: 114/70 Code: 8480-6 BMI: 30.3 Code: 37160-2 Heart Rate 1: 68 bpm Height: 5'9" Respiratory Rate: 20 bpm Temperature: 36 .8 (C) / 98.3 (F) Weight: 205 lbs 09/01/2012 Blood Pressure 1: 118/82 Code: 8480-6 BMI: 30.9 Code: 16479-3 Heart Rate 1: 80 bpm Height: 5'9" Respiratory Rate: 20 bpm Temperature: 36 .8 (C) / 98.2 (F) Weight: 209 lbs 02/03/2011 Blood Pressure 1: 118/76 Code: 8480-6 BMI: 29.5 Code: 05439-0 Heart Rate 1: 72 bpm Height: 5'9" Weight: 200 lbs 12/25/2009 Blood Pressure 1: 122/76 Code: 8480-6 BMI: 29.5 Code: 91562-6 Heart Rate 1: 80 bpm Height: 5'9" [...] 11/24 Encounters Encounter Performer Location Codes Date ([id number]) OFFICE/OUTPATIENT VISIT EST Diagnosis: Cellulitis of right breast[ICD10: N61.0] Josesito DEL ROSARIO DO [facility] CPT-4: 64168 05/04/2019 ([id number]) OFFICE/OUTPATIENT VISIT EST Diagnosis: Cellulitis of right breast[ICD10: N61.0] Josesito DEL ROSARIO DO [facility] CPT-4: 18647 05/03/2019 ([id number]) OFFICE/OUTPATIENT VISIT EST Diagnosis: Cellulitis of right breast[ICD10: N61.0] Josesito DEL ROSARIO DO [facility] CPT-4: 53347 05/02/2019 ([id number]) OFFICE/OUTPATIENT VISIT EST Diagnosis: Edema, unspecified[ICD10: R60.9] Diagnosis: Adverse effect of unspecified drugs, medicaments and biological substances, initial encounter[ICD10: T50.905A] Diagnosis: Gross hematuria[ICD10: R31.0] Josesito DEL ROSARIO DO [facility] CPT-4: 46427 10/19/2018 ([id number]) OFFICE/OUTPATIENT VISIT EST Diagnosis: URI, ACUTE[ICD10: J06.9] Josesito SHIELDS [facility] CPT-4: 74004 07/29/2018 ([id number]) OFFICE/OUTPATIENT VISIT EST Diagnosis: Acute pharyngitis, unspecified[ICD10: J02.9] Diagnosis: URI, ACUTE[ICD10: J06.9] Josesito SHIELDS [facility] CPT-4: 01049 07/26/2018 ([id number]) PREV VISIT EST AGE 40-64 Diagnosis: Encounter for general adult medical examination without abnormal findings[ICD10: Z00.00] Diagnosis: Encounter for gynecological examination (general) (routine) without abnormal findings[ICD10: Z01.419] Diagnosis: Menopausal and female climacteric states[ICD10: N95.1] Diagnosis: Other abnormal and inconclusive findings on diagnostic imaging of breast[ICD10: R92.8] Josesito DEL ROSARIO DO [facility] CPT-4: 10538 07/06/2018 ([id number]) PREV VISIT EST AGE 40-64 Diagnosis: Encounter for general adult medical examination without abnormal findings[ICD10: Z00.00] Diagnosis: Encounter for gynecological examination (general) (routine) without abnormal findings[ICD10: Z01.419] Josesito Lund DO [facility] CPT-4: 41718 06/30/2017 ([id number]) PREV VISIT EST AGE 40-64 Diagnosis: Encounter for general adult medical examination without abnormal findings[ICD10: Z00.00] Josesito DEL ROSARIO DO [facility] CPT-4: 24603 02/04/2016 ([id number]) PREV VISIT EST AGE 40-64 Diagnosis: ROUTINE MEDICAL EXAM[ICD9: V70.0] Diagnosis: MENOPAUSAL DISORDER[ICD9: 627.9] Josesito DEL ROSARIO DO [facility] CPT-4: 93136 12/19/2013 OFFICE/OUTPATIENT VISIT EST Diagnosis: MENOPAUSAL DISORDER[ICD9: 627.9] Josesito DEL ROSARIO DO [facility] CPT-4: 50926 10/27/2012 ([id number]) PREV VISIT EST AGE 40-64 Diagnosis: ROUTINE MEDICAL EXAM[ICD9: V70.0] Diagnosis: MENOPAUSAL DISORDER[ICD9: 627.9] Josesito DEL ROSARIO DO [facility] CPT-4: 83089 09/01/2012 PREV VISIT EST AGE 40-64 Diagnosis: ROUTINE GYNE EXAM[ICD9: V72.31] Diagnosis: ROUTINE MEDICAL EXAM[ICD9: V70.0] Josesito DEL ROSARIO DO [facility] CPT-4: 47077 02/03/2011 SPECIMEN HANDLING Diagnosis: [ICD9: ] Diagnosis: [ICD9: ] Josesito DEL ROSARIO DO [facility] CPT-4: 9900 0 02/03/2011 ([id number]) PREV VISIT, EST, AGE 40-64 Josesito MARQUEZNE Scotty DEL ROSARIO DO [facility] CPT-4: 15087 12/25/2009 Plan of Care Planned Activity Notes [...] N61.0 05/03/2019 App[facility]ment[facility] [phone] [facility] [facility] 05/03/2019 Visit Diagnosis Plan: Cellulitis of right breast Discu ssion: Rocephin 1gm IM now Start clindamycin with a probiotic Recheck tomorrow ICD-9 : 611.0 ICD-10 : N61.0 05/02/2019 Appointment: Josesito Del Rosariotel: [facility] [facility] 05/02/2019 Patient Education: clindamycin HCl- [employer] Coupon [id number] [email or web address] Completed 05/02/2019 Care Plan: TRANSVAGINAL US NON-OB LOINC : 98465-9 Pending 10/21/2018 Appointment: Josesito Del Rosario WPtel: [facility] [facility] CHECK 10/20/2018 Visit [...] R60.9 10/19/2018 Appointment: Josesito Del Rosario WPtel: [address] [place], [place] [id number] 10/19/2018 Appointment: Josesito Del Rosario WPtel: [address] [place], [place] [phone] Per CANCELED 08/02/2018 Visit Diagnosis Plan: URI, ACUTE Discussion: CXR negat johnna Lungs clear Only physical exam finding is injection on throat and mild fluid behind ears Will increase zyrtec to BID Throat Culture Notify surgeon of current course ICD-9 : 465.9 ICD-10 : J06.9 07/29/2018 Appointment: Josesito Del Rosario WPtel: [address] [place], [place] [phone] WORK IN 07/29/2018 Visit Diagnosis Plan: Acute pharyngitis, unspecified D iscussion: Strep Negative Cover with Zithromax with upcoming surgery next week but if worsens will let us know and will have to postpone surgery ICD-9 : 462 ICD-10 : J02.9 07/26/2018 Visit NOS Plan: Plan Notes: Supportive care. Rest, Fluids... 07/26/2018 Appointment: Josesito Del Rosario WPtel: [address] [place], [place] [phone] ACUTE ILLNESS 07/26/2018 Visit Diagnosis Plan: Encounter [...] N95.1 07/06/2018 Appointment: Josesito Del Rosario WPtel: [address] [place] [address] US PAP 07/06/2018 Care Plan: MAMMOGRAM BOTH BREASTS [facility] Mammogram of [place] Breast LOINC : 80457-7 Pending 06/24/2018 Care Plan: US EXAM CHEST [...] Z01.419 06/30/2017 Appointment: Josesito Del Rosario WPtel: [address] [place] [address] US PAP 06/30/2017 Patient Education: Patient Medication Summary Completed 06/30/2017 Visit Plan: Update fasting lab Pap done Had mammogram Weight bearing exercise 02/04/2016 Appointment: Josesito Del Rosario WPtel: [address] [place] [address] US 01/30 confirmed~sl PAP 02/04/2016 Patient Education: Patient Medication Summary Completed 02/04/2016 Appointment: Josesito Del Rosario WPtel: [address] [place] [address] US RESCHEDULED 01/17/2016 Patient Education: Patient Medication Summary Completed 12/31/2015 Care Plan: MAMMOGRAM SCREENING LOINC : 2 6347-5 Pending 12/31/2015 Visit Plan: Try to decrease fluoxetine t o 10mg daily Check Mammo Check fasting lab Check Colonoscopy due to family hx of Colon Cancer 12/19/2013 Appointment: Josesito Del Rosario WPtel: [address] [place], [place] [phone] 12/16 PAP 12/19/2013 Patient Education: Patient Medication Summary Completed 12/19/2013 Visit Plan: Long discussion about HRT--p t has Breast Ca on both sides--Discussed BRCA gene testing in Mom Will try higher dose of fluoxetine 10/27/2012 Appointment: Josesito Del Rosario WPtel: [address] [place], [place] [phone] FOLLOW UP 10/27/2012 Patient Education: Patient Medication Summary Completed 10/27/2012 Visit Plan: Lab discussed Add fish oil 3 grams daily Long discussion about hormones Trial of fluoxetine 09/01/2012 Appointment: Josesito Del Rosario WPtel: [address] [place], [place] [phone] PAP 09/01/2012 Patient Education: Patient Medication Summary Completed 09/01/2012 Visit Plan: Pap Done and Mammogram order ed Fasting lab ordered 02/03/2011 Appointment: Josesito Del Rosario WPtel: [address] [place], [place] [phone] [place] PAP 02/03/2011 Patient Education: Patient Medication Summary Completed 02/03/2011 Visit Plan: Pap done Mammo done last wee k Lab discussed Discussed Bioidentical Hormones 12/25/2009 Appointment: Josesito Del Rosario WPtel: [address] [place], [place] [phone] PAP 12/25/2009 Patient Education: Patient Medication Summary Completed 12/25/2009 Instructions Comment . Update fasting lab Pap done Had mammogram Weight bearing exercise . Try to decrease fluoxetine to 10mg kobe ly Check Mammo Check fasting lab Check Colonoscopy due to family hx of Colon Cancer . Long discussion about HRT--pt has [place] on both sides--Discussed BRCA gene [...]
--- OUTSIDE RECORDS SUMMARY | 2019-05-15 23:43 | XMS REPORT | CCD ---
Author Author Caridad Del Rosario D.O. Organization JOSESITO DEL ROSARIO DO [facility] Address [address] [place] [address] Phone Care Team Providers Care Business Technology Professor Name Role Phone PP Unavailable CCM Unavailable Summary Purpose Interface Exchange Insurance Providers Payer name Policy type / Coverage type Covered green party ID Effective Begin Date Effective End Date [facility] Commercial Insurance [id number] Un known Family History Family History data [...] Instructions clindamycin HCl 300 mg capsule RxNorm: 920496 1 Capsule (s) Oral three times a day 05/02/2019 05/09/2019 Active fluoxetine 20 mg tablet RxNorm: 342786 1 Tablet(s) Oral QD 03/29/20 19 09/24/2019 Active Zithromax Z-Khoi 250 mg tablet RxNorm: 751365 Tablet(s) Oral as directed 03/25/2019 03/25/2019 Inactive Zithromax Z-Khoi 250 mg tablet RxNorm: 022975 Tablet(s) Oral as directed 03/25/2019 03/24/2019 Inactive famotidine 20 mg tablet RxNorm: 238104 1 Tablet(s) PO BID 10/19/2018 02/15/2019 Inactive Tessalon Perles 100 mg capsule RxNorm: 466560 1 Capsule (s) PO TID as needed for cough 07/26/2018 10/18/2018 Inactive Zithromax 500 mg tablet RxNorm: 643273 1 Tablet(s) PO QD 07/26/2018 0 07/25/2018 Inactive Zithromax 500 mg tablet RxNorm: 444690 1 Tablet(s) PO QD 07/26/2018 0 07/30/2018 Inactive Xanax 0.25 mg tablet RxNorm: 790121 1/2-1 Tablet(s) PO BID 06/01/19 19 No Stop Date Active fluoxetine 20 mg tablet RxNorm: 135093 1 Tablet(s) PO Q D Due for annual appointment in 06/01/2018 02/25/2019 Inactive fluoxetine 20 mg tablet RxNorm: 667801 1 Tablet(s) PO Q D Due for annual in [facility] 06/01/2018 02/25/2019 Inactive fluoxetine 20 mg tablet RxNorm: 416240 1 Tablet(s) PO QD 08/05/2017 1 07/02/2017 Inactive fluoxetine 20 mg tablet RxNorm: 377646 1 Tablet(s) PO QD 08/04/2017 0 08/04/2017 Inactive Xanax 0.25 mg tablet RxNorm: 492579 1/2-1 Tablet(s) PO BID 07/02/19 18 05/31/2018 Inactive fluoxetine 10 mg capsule RxNorm: 807949 2 Capsule(s) PO QAM 018 07/05/2018 Inactive Generic For:PROZAC 10 MG PUL VULE 09/24/2015 10:15:02 AM N O T I C E Last quantity doesn't match original quantity fluoxetine 10 mg capsule RxNorm: 781226 2 Capsule(s) PO QAM Routine wellness due after 02-04-17 12/03/2016 03/02/2017 Inactive Generic For:PROZ AC 10 MG PULVULE 09/24/2015 10:15:02 AM N O T I C E Last quantity doesn't match original quantity Xanax 0.25 mg tablet RxNorm: 576238 1/2-1 Tablet(s) PO BID 02/05/20 16 07/01/2017 Inactive fluoxetine 10 mg capsule RxNorm: 538162 2 Capsule(s) PO QAM 016 07/25/2018 Inactive fluoxetine 10 mg capsule RxNorm: 097288 2 Capsule(s) PO QAM 016 12/03/2016 Inactive Generic For:PROZAC 10 MG PUL VULE 09/24/2015 10:15:02 AM N O T I C E Last quantity doesn't match original quantity fluoxetine 10 mg capsule RxNorm: 296560 2 Capsule(s) PO QAM TAKE 2 CAPSULES BY MOUTH EVERY MORNING 11/16/2015 02/03/2016 Inactive Generic For: PROZAC 10 MG PULVULE 09/24/2015 10:15:02 AM N O T I C E Last quantity doesn't match original quantity fluoxetine 10 mg capsule RxNorm: 129480 2 Capsule(s) PO QAM TAKE 2 CAPSULES BY MOUTH EVERY MORNING 09/24/2015 11/15/2015 Inactive Generic For: PROZAC 10 MG PULVULE 09/24/2015 10:15:02 AM N O T I C E Last quantity doesn't match original quantity fluoxetine 10 mg capsule RxNorm: 158928 2 Capsule(s) PO QAM 015 09/24/2015 Inactive fluoxetine 10 mg capsule RxNorm: 924958 2 Capsule(s) PO QAM 015 07/28/2018 Inactive fluoxetine 10 mg capsule RxNorm: 380637 2 Capsule(s) PO QAM 014 05/21/2014 Inactive Xanax 0.25 mg tablet RxNorm: 163197 1/2-1 Tablet(s) PO BID 04/21/20 13 No Stop Date Active fluoxetine 10 mg capsule RxNorm: 118308 2 Capsule(s) PO QAM 013 01/24/2013 Inactive fluoxetine 10 mg capsule RxNorm: 924516 1 Capsule(s) PO QAM 013 10/26/2012 Inactive Multivitamin & Mineral Formula Tab RxNorm: 1 Tablet(s) PO QD No St art Date Active Zyrtec 10 mg tablet RxNorm: 4397057 1 Tablet(s) PO BID No Start Date Active Prilosec OTC 20 mg tablet,delayed release RxNorm: 866980 1 Tabl et(s) PO QD No Start Date Active Tessalon Perles 100 mg capsule RxNorm: 235486 1 Capsule (s) PO TID as needed for cough No Start Date 07/25/2018 Inactive Biotin Oral RxNorm: Oral No Start Date 10/18/2018 Inactive Zithromax Z-Khoi oral RxNorm: 86650 oral No Start Date 03/24/2019 Inactive Echinacea ACZ oral RxNorm: oral No Start Date 07/28/2018 Inacti ve Vitamin D3 1000 units Capsule RxNorm: 1 Capsule(s) PO QD No St art Date 07/28/2018 Inactive Black Cohosh Oral RxNorm: Oral No Start Date 07/28/2018 Inactiv e Xanax 0.25 mg tablet RxNorm: 831763 1/2-1 Tablet(s) PO BID No Start Date 04/20/2013 Inactive Zyrtec 10 mg tablet RxNorm: 7012017 1 Tablet(s) PO QD as needed No Start Date 10/18/2018 Inactive Vitamin C 1,000 mg tablet RxNorm: 563991 1 Tablet(s) PO QD No Start Date 10/18/2018 Inactive fluoxetine 20 mg tablet RxNorm: 373622 1 Tablet(s) PO QD No Start D ate 08/03/2017 Inactive Medication Administered No Medication Administered data Immunizations Vaccine Codes Date Status Influenza CVX: 141 04/08/2019 Influenza CVX: 141 04/26/2018 Results Observation Observation Code Item Item Code Result Date S ervice Location CULTURE, URINE, ROUTINE 395 CULTURE, URINE, ROUTINE 10/20/2018 [facility] [address] [place] [address] GFR CALC 0201709 GFR Non Afr Amr >60 mL/min 07/05/2018 Un known GFR CALC 2234330 GFR Afr Amr >60 mL/min 07/05/2018 Unknow n FREE T4 99349 T4 Free 0.94 ng/dL 07/05/2018 Unknown [facility] 42640 Cholesterol 165 mg/dL 07/05/2018 Unkno wn [facility] 58858 Triglyceride 108 mg/dL 07/05/2018 Unkn own [facility] 90314 HDL CHOLESTEROL 50 mg/dL 07/05/2018 U nknown [facility] 54422 Chol/HDL Ratio 3.30 ratio 07/05/2018 U nknown [facility] 24198 NON-HDL Chol 115 mg/dL 07/05/2018 Unkn own [facility] 40857 LDL Cholesterol 93 mg/dL 07/05/2018 U nknown THYROID STIMULATING HORMONE 56710 TSH 0.937 uIU/mL 07/05/2018 Unknown COMPREHENSIVE METABOLIC 86146 AST 19 U/L 2018 Unknown COMPREHENSIVE METABOLIC 57266 ALT 21 U/L 2018 Unknown COMPREHENSIVE METABOLIC 15488 BUN 10 mg/dL 2018 Unknown COMPREHENSIVE METABOLIC 60993 ALBUMIN 4.3 g/dL 2018 Unknown COMPREHENSIVE METABOLIC 00694 CHLORIDE 106 mmol/L 07/05 Unknown COMPREHENSIVE METABOLIC 96806 Bili Total 0.3 mg/dL 07/05 Unknown COMPREHENSIVE METABOLIC 02294 ALK PHOS 59 U/L 2018 Unknown COMPREHENSIVE METABOLIC 75428 SODIUM 140 mmol/L 07/05 Unknown COMPREHENSIVE METABOLIC 30779 CREATININE 0.68 mg/dL 06/18 Unknown COMPREHENSIVE METABOLIC 31539 CALCIUM 9.2 mg/dL 2018 Unknown COMPREHENSIVE METABOLIC 88140 POTASSIUM 4.0 mmol/L 07/05 Unknown COMPREHENSIVE METABOLIC 67739 Total Protein 7.1 g/dL Unknown COMPREHENSIVE METABOLIC 86069 Glucose 84 mg/dL 2018 Unknown COMPREHENSIVE METABOLIC 87922 Bicarbonate 27 mmol/L 06/18 Unknown COMPREHENSIVE METABOLIC 59671 AGAP 7 mmol/L 2018 Unknown COMPLETE BLOOD COUNT 8783745 WBC 6.0 10e9/L 07/05/19 19 Unknown COMPLETE BLOOD COUNT 7207821 RBC 4.36 10e12/L 2018 Unknown COMPLETE BLOOD COUNT 8248099 HEMOGLOBIN 12.9 g/dL 07/05/19 19 Unknown COMPLETE BLOOD COUNT 6048305 HEMATOCRIT 39.1 % 07/05/19 19 Unknown COMPLETE BLOOD COUNT 1689116 MCV 89.7 fL 9 Unknown COMPLETE BLOOD COUNT 1074631 MCH 29.6 pg 9 Unknown COMPLETE BLOOD COUNT 1189873 MCHC 33.0 g/dL 9 Unknown COMPLETE BLOOD COUNT 5233547 PLATELET COUNT 270 10e9/L Unknown COMPLETE BLOOD COUNT 8387030 Mean Plt Volume 9.0 fL Unknown COMPLETE BLOOD COUNT 4162493 Neut Auto 53.8 % 9 Unknown COMPLETE BLOOD COUNT 9186835 Lymph Auto 35.8 % 07/05/19 19 Unknown COMPLETE BLOOD COUNT 2259167 [place] Auto 7.9 % 9 Unknown COMPLETE BLOOD COUNT 0064830 RDW 13.9 % 9 Unknown COMPLETE BLOOD COUNT 9842605 Eos Auto 2.0 % 9 Unknown COMPLETE BLOOD COUNT 5265183 Baso Auto 0.5 % 9 Unknown COMPLETE BLOOD COUNT 1949985 Neutrophil Abs 3.23 10e9/L Unknown COMPLETE BLOOD COUNT 4047864 Lymphocyte Abs 2.15 10e9/L Unknown COMPLETE BLOOD COUNT 8866472 Monocyte Abs 0.47 10e9/L 06/18 Unknown COMPLETE BLOOD COUNT 0428868 Eosinophil Abs 0.12 10e9/L Unknown COMPLETE BLOOD COUNT 7335066 RDW-SD 44.5 fL 9 Unknown COMPLETE BLOOD COUNT 2358556 Basophil Abs 0.03 10e9/L 06/18 Unknown FREE T4 84276 T4 Free 1.21 ng/dL 06/30/2017 Unknown GFR CALC 7920418 GFR Non Afr Amr >60 mL/min 06/30/2017 Un known GFR CALC 6622720 GFR Afr Amr >60 mL/min 06/30/2017 Unknow n THYROID STIMULATING HORMONE 48237 TSH 0.873 uIU/mL 06/30/2017 Unknown [facility] 81964 Cholesterol 175 mg/dL 06/30/2017 Unkno wn [facility] 26520 Triglyceride 129 mg/dL 06/30/2017 Unkn own [facility] 51262 HDL CHOLESTEROL 51 06/30/2017 U nknown [facility] 76758 Chol/HDL Ratio 3.43 ratio 06/30/2017 U nknown [facility] 81757 NON-HDL Chol 124 mg/dL 06/30/2017 Unkn own [facility] GROUP 02718 LDL Cholesterol 98 mg/dL 06/30/2017 U nknown COMPLETE BLOOD COUNT 8170012 WBC 6.2 10e9/L 06/30/19 18 Unknown COMPLETE BLOOD COUNT 9119714 RBC 4.58 10e12/L 2017 Unknown COMPLETE BLOOD COUNT 8877830 HEMOGLOBIN 13.3 g/dL 06/30/19 18 Unknown COMPLETE BLOOD COUNT 0601844 HEMATOCRIT 41.6 % 06/30/19 18 Unknown COMPLETE BLOOD COUNT 3360660 MCV 90.8 fL 8 Unknown COMPLETE BLOOD COUNT 3547154 MCH 29.0 pg 8 Unknown COMPLETE BLOOD COUNT 7443321 MCHC 32.0 g/dL 8 Unknown COMPLETE BLOOD COUNT 5053953 PLATELET COUNT 271 10e9/L Unknown COMPLETE BLOOD COUNT 6998250 Mean Plt Volume 8.9 fL Unknown COMPLETE BLOOD COUNT 4141536 Neut Auto 53.5 % 8 Unknown COMPLETE BLOOD COUNT 9773708 Lymph Auto 36.4 % 06/30/19 18 Unknown COMPLETE BLOOD COUNT 3343952 [place] Auto 8.1 % 8 Unknown COMPLETE BLOOD COUNT 7056498 RDW 13.4 % 8 Unknown COMPLETE BLOOD COUNT 8626649 Eos Auto 1.5 % 8 Unknown COMPLETE BLOOD COUNT 1070301 Baso Auto 0.5 % 8 Unknown COMPLETE BLOOD COUNT 6588883 Neutrophil Abs 3.32 10e9/L Unknown COMPLETE BLOOD COUNT 5890337 Lymphocyte Abs 2.26 10e9/L Unknown COMPLETE BLOOD COUNT 5185637 Monocyte Abs 0.50 10e9/L 06/18 Unknown COMPLETE BLOOD COUNT 2811844 Eosinophil Abs 0.09 10e9/L Unknown COMPLETE BLOOD COUNT 5515543 RDW-SD 43.9 fL 8 Unknown COMPLETE BLOOD COUNT 1291207 Basophil Abs 0.03 10e9/L 06/18 Unknown COMPREHENSIVE METABOLIC 46540 AST 19 U/L 2017 Unknown COMPREHENSIVE METABOLIC 74384 ALT 22 U/L 2017 Unknown COMPREHENSIVE METABOLIC 55408 BUN 12 mg/dL 2017 Unknown COMPREHENSIVE METABOLIC 35999 ALBUMIN 4.9 g/dL 2017 Unknown COMPREHENSIVE METABOLIC 75015 CHLORIDE 106 mmol/L 06/30 Unknown COMPREHENSIVE METABOLIC 80561 Bili Total 0.4 mg/dL 06/30 Unknown COMPREHENSIVE METABOLIC 06613 ALK PHOS 66 U/L 2017 Unknown COMPREHENSIVE METABOLIC 81095 SODIUM 143 mmol/L 06/30 Unknown COMPREHENSIVE METABOLIC 44643 CREATININE 0.71 mg/dL 06/18 Unknown COMPREHENSIVE METABOLIC 36763 CALCIUM 9.9 mg/dL 2017 Unknown COMPREHENSIVE METABOLIC 41234 POTASSIUM 4.1 mmol/L 06/30 Unknown COMPREHENSIVE METABOLIC 73423 Total Protein 8.0 g/dL Unknown COMPREHENSIVE METABOLIC 02926 Glucose 87 mg/dL 2017 Unknown COMPREHENSIVE METABOLIC 24019 Bicarbonate 27 mmol/L 06/18 Unknown COMPREHENSIVE METABOLIC 18509 AGAP 10 mmol/L 2017 Unknown GFR CALC 9871723 GFR AA >60 ML/MIN 12/19/2013 Unknown GFR CALC 8983485 GFR NON-AA >60 ML/MIN 12/19/2013 Unknown LIPID GROUP 92683 HDL TEST 52 MG/DL 12/19/2013 Unknown [facility] GROUP 49469 TRIG 96 MG/DL 12/19/2013 Unknown [facility] 76238 TEST LDL 98 MG/DL 12/19/2013 Unknown [facility] GROUP 54548 CHOL 169 MG/DL 12/19/2013 Unknown [facility] GROUP 99889 RCHOL/HDL 3.25 RATIO 12/19/2013 Unknow n LIP[facility] GROUP 10781 NON-HDL CH 117 MG/DL 12/19/2013 Unknow n COMPLETE BLOOD COUNT 1612683 WBC 5.6 10e9/L 12/20/19 14 Unknown COMPLETE BLOOD COUNT 6458588 RBC 4.45 10e12/L 2013 Unknown COMPLETE BLOOD COUNT 1030408 HGB 13.0 g/dL 4 Unknown COMPLETE BLOOD COUNT 5133590 HCT DET 39.9 % 4 Unknown COMPLETE BLOOD COUNT 8642690 MCV 89.7 fL 4 Unknown COMPLETE BLOOD COUNT 9048029 MCH 29.2 pg 4 Unknown COMPLETE BLOOD COUNT 5131392 MCHC 32.6 g/dL 4 Unknown COMPLETE BLOOD COUNT 9646998 PLT 244 10e9/L 12/20/19 14 Unknown COMPLETE BLOOD COUNT 5715266 MPV 9.4 fL 4 Unknown COMPLETE BLOOD COUNT 9348072 PABLITO % 58.5 % 4 Unknown COMPLETE BLOOD COUNT 5404633 LY % 30.8 % 4 Unknown COMPLETE BLOOD COUNT 8423814 MON % 8.2 % 4 Unknown COMPLETE BLOOD COUNT 5999861 EOS % 2.0 % 4 Unknown COMPLETE BLOOD COUNT 2862620 BASO % 0.5 % 4 Unknown COMPLETE BLOOD COUNT 1989012 RDW 13.6 % 4 Unknown COMPLETE BLOOD COUNT 3110055 ABS PABLITO 3.28 10e9/L 014 Unknown COMPLETE BLOOD COUNT 4293236 ABS LYMPH 1.72 10e9/L 014 Unknown COMPLETE BLOOD COUNT 5484538 ABS MONO 0.46 10e9/L 014 Unknown COMPLETE BLOOD COUNT 1505957 ABS EOS 0.11 10e9/L 014 Unknown COMPLETE BLOOD COUNT 0793744 ABS BASO 0.03 10e9/L 014 Unknown COMPLETE BLOOD COUNT 2459030 RDW-SD 43.6 fL 4 Unknown FREE T4 67003 FREE T4 1.26 NG/DL 12/19/2013 Unknown COMPREHENSIVE METABOLIC 41291 AST 18 U/L 2013 Unknown COMPREHENSIVE METABOLIC 78605 ALT 22 IU/L 2013 Unknown COMPREHENSIVE METABOLIC 97330 BUN 11 MG/DL 2013 Unknown COMPREHENSIVE METABOLIC 92977 ALBUMIN 4.7 GM/DL 2013 Unknown COMPREHENSIVE METABOLIC 68406 CHLORIDE 108 MMOL/L 12/19 Unknown COMPREHENSIVE METABOLIC 99208 BILI TOT 0.3 MG/DL 2013 Unknown COMPREHENSIVE METABOLIC 83769 ALK PHOS 67 U/L 2013 Unknown COMPREHENSIVE METABOLIC 56683 SODIUM 141 MMOL/L 12/19 Unknown COMPREHENSIVE METABOLIC 79639 CREATININE 0.67 MG/DL 08/2013 Unknown COMPREHENSIVE METABOLIC 03101 CALCIUM 9.4 MG/DL 2013 Unknown COMPREHENSIVE METABOLIC 77452 POTASSIUM 4.1 MMOL/L 12/19 Unknown COMPREHENSIVE METABOLIC 56320 PROT TOT 7.0 GM/DL 2013 Unknown COMPREHENSIVE METABOLIC 94528 Glucose 94 MG/DL 2013 Unknown COMPREHENSIVE METABOLIC 09432 BICARB 27 MMOL/L 2013 Unknown COMPREHENSIVE METABOLIC 28015 ANION GAP 6 MEQ/L 2013 Unknown THYROID STIMULATING HORMONE 42016 TSH 0.547 uIU/ML 12/19/2013 Unknown GFR CALC 1746461 GFR AA >60 ML/MIN 02/03/2011 Unknown GFR CALC 0180130 GFR NON-AA >60 ML/MIN 02/03/2011 Unknown THYROID STIMULATING HORMONE 98794 TSH 0.818 uIU/ML 02/03/2011 Unknown COMPLETE BLOOD COUNT 10242 WBC 7.7 10e9/L 02/04/20 11 Unknown COMPLETE BLOOD COUNT 13515 RBC 4.23 10e12/L 2010 Unknown COMPLETE BLOOD COUNT 71850 HGB 11.9 g/dL 1 Unknown COMPLETE BLOOD COUNT 67373 HCT DET 36.5 % 1 Unknown COMPLETE BLOOD COUNT 37938 MCV 86.3 fL 1 Unknown COMPLETE BLOOD COUNT 89562 MCH 28.1 pg 1 Unknown COMPLETE BLOOD COUNT 72680 MCHC 32.6 g/dL 1 Unknown COMPLETE BLOOD COUNT 52159 PLT 244 10e9/L 02/04/20 11 Unknown COMPLETE BLOOD COUNT 34833 MPV 8.7 fL 1 Unknown COMPLETE BLOOD COUNT 88751 PABLITO % 58.9 % 1 Unknown COMPLETE BLOOD COUNT 67908 LY % 31.1 % 1 Unknown COMPLETE BLOOD COUNT 70677 MON % 7.9 % 1 Unknown COMPLETE BLOOD COUNT 74083 EOS % 1.8 % 1 Unknown COMPLETE BLOOD COUNT 30328 BASO % 0.3 % 1 Unknown COMPLETE BLOOD COUNT 35054 RDW 14.7 % 1 Unknown COMPLETE BLOOD COUNT 33499 ABS PABLITO 4.54 10e9/L 011 Unknown COMPLETE BLOOD COUNT 55792 ABS LYMPH 2.39 10e9/L 011 Unknown COMPLETE BLOOD COUNT 95244 ABS MONO 0.61 10e9/L 011 Unknown COMPLETE BLOOD COUNT 23886 ABS EOS 0.14 10e9/L 011 Unknown COMPLETE BLOOD COUNT 27349 ABS BASO 0.02 10e9/L 011 Unknown COMPLETE BLOOD COUNT 04070 RDW-SD 45.1 fL 1 Unknown COMPREHENSIVE METABOLIC 73541 AST 16 U/L 2010 Unknown COMPREHENSIVE METABOLIC 43963 ALT 21 IU/L 2010 Unknown COMPREHENSIVE METABOLIC 63021 BUN 9 MG/DL 2010 Unknown COMPREHENSIVE METABOLIC 78493 ALBUMIN 4.5 GM/DL 2010 Unknown COMPREHENSIVE METABOLIC 75113 CHLORIDE 104 MMOL/L 02/03 Unknown COMPREHENSIVE METABOLIC 47214 BILI TOT 0.2 MG/DL 2010 Unknown COMPREHENSIVE METABOLIC 52202 ALK PHOS 65 U/L 2010 Unknown COMPREHENSIVE METABOLIC 91939 SODIUM 137 MMOL/L 02/03 Unknown COMPREHENSIVE METABOLIC 50814 CREATININE 0.64 MG/DL 01/16 Unknown COMPREHENSIVE METABOLIC 66116 CALCIUM 8.8 MG/DL 2010 Unknown COMPREHENSIVE METABOLIC 44529 POTASSIUM 3.8 MMOL/L 02/03 Unknown COMPREHENSIVE METABOLIC 38310 PROT TOT 6.7 GM/DL 2010 Unknown COMPREHENSIVE METABOLIC 81463 Glucose 88 MG/DL 2010 Unknown COMPREHENSIVE METABOLIC 40521 BICARB 26 MMOL/L 2010 Unknown COMPREHENSIVE METABOLIC 20975 ANION GAP 7 MEQ/L 2010 Unknown FREE T4 11401 FREE T4 1.24 NG/DL 02/03/2011 Unknown Procedures Procedure Codes Date CEFTRIAXONE SODIUM INJECTION CPT-4: J0696 05/03/2019 THER/PROPH/DIAG INJ SC/IM CPT-4: 11739 05/03/2019 CEFTRIAXONE SODIUM INJECTION CPT-4: J0696 05/02/2019 THER/PROPH/DIAG INJ SC/IM CPT-4: 11145 05/02/2019 DEXAMETHASONE SODIUM PHOS CPT-4: J1100 10/19/2018 THER/PROPH/DIAG INJ SC/IM CPT-4: 50971 10/19/2018 URINE CULTURE/ COLONY COUNT CPT-4: 81049 10/19/2018 URINALYSIS NONAUTO W/O SCOPE CPT-4: 36839 10/19/2018 THROAT CULTURE CPT-4: 58426 07/29/2018 STREP A ASSAY W/OPTIC CPT-4: 69316 07/26/2018 SPECIMEN HANDLING OFFICE-LAB CPT-4: 13821 07/06/2018 OCCULT BLOOD FECES CPT-4: 03323 07/06/2018 ROUTINE VENIPUNCTURE CPT-4: 96337 12/19/2013 ASSAY OF FREE THYROXINE CPT-4: 32945 12/19/2013 ASSAY THYROID STIM HORMONE CPT-4: 87199 12/19/2013 COMPREHEN METABOLIC PANEL CPT-4: 40349 12/19/2013 COMPLETE CBC W/AUTO DIFF WBC CPT-4: 80771 12/19/2013 LIPID PANEL CPT-4: 98141 12/19/2013 OCCULT BLOOD FECES CPT-4: 19219 02/03/2011 SPECIMEN HANDLING OFFICE-LAB CPT-4: 16132 12/25/2009 OCCULT BLOOD FECES CPT-4: 91324 12/25/2009 Vital Signs Date Vital 05/03/2019 Blood [...] 1: 130/78 Code: 8480-6 BMI: 30.7 Code: 75103-8 Heart Rate 1: 76 bpm Height: 5'9" Respiratory Rate: 20 bpm Temperature: 36 .8 (C) / 98.3 (F) Weight: 208 lbs 06/30/2017 Blood Pressure 1: 126/80 Code: 8480-6 BMI: 30.9 Code: 91713-9 Heart Rate 1: 72 bpm Height: 5'9" Respiratory Rate: 20 bpm Temperature: 36 .7 (C) / 98.0 (F) Weight: 209 lbs 02/04/2016 Blood Pressure 1: 122/80 Code: 8480-6 BMI: 31.3 Code: 01651-5 Heart Rate 1: 80 bpm Height: 5'9" Respiratory Rate: 20 bpm Temperature: 36 .6 (C) / 97.8 (F) Weight: 212 lbs 12/19/2013 Blood Pressure 1: 116/78 Code: 8480-6 BMI: 30.1 Code: 66273-1 Heart Rate 1: 76 bpm Height: 5'9" Respiratory Rate: 20 bpm Temperature: 36 .8 (C) / 98.3 (F) Weight: 204 lbs 10/27/2012 Blood Pressure 1: 114/70 Code: 8480-6 BMI: 30.3 Code: 34574-3 Heart Rate 1: 68 bpm Height: 5'9" Respiratory Rate: 20 bpm Temperature: 36 .8 (C) / 98.3 (F) Weight: 205 lbs 09/01/2012 Blood Pressure 1: 118/82 Code: 8480-6 BMI: 30.9 Code: 43053-6 Heart Rate 1: 80 bpm Height: 5'9" Respiratory Rate: 20 bpm Temperature: 36 .8 (C) / 98.2 (F) Weight: 209 lbs 02/03/2011 Blood Pressure 1: 118/76 Code: 8480-6 BMI: 29.5 Code: 66456-3 Heart Rate 1: 72 bpm Height: 5'9" Weight: 200 lbs 12/25/2009 Blood Pressure 1: 122/76 Code: 8480-6 BMI: 29.5 Code: 67154-7 Heart Rate 1: 80 bpm Height: 5'9" [...] 11/24 Encounters Encounter Performer Location Codes Date ([id number]) OFFICE/OUTPATIENT VISIT EST Diagnosis: Cellulitis of right breast[ICD10: N61.0] Josesito DEL ROSARIO [facility] CPT-4: 83356 05/03/2019 ([id number]) OFFICE/OUTPATIENT VISIT EST Diagnosis: Cellulitis of right breast[ICD10: N61.0] Josesito DEL ROSAR[facility] CPT-4: 38476 05/02/2019 ([id number]) OFFICE/OUTPATIENT VISIT EST Diagnosis: Edema, unspecified[ICD10: R60.9] Diagnosis: Adverse effect of unspecified drugs, medicaments and biological substances, initial encounter[ICD10: T50.905A] Diagnosis: Gross hematuria[ICD10: R31.0] Josesito DEL [facility]AR[facility] CPT-4: 14110 10/19/2018 ([id number]) OFFICE/OUTPATIENT VISIT EST Diagnosis: URI, ACUTE[ICD10: J06.9] Josesito [facility] CPT-4: 17328 07/29/2018 ([id number]) OFFICE/OUTPATIENT VISIT EST Diagnosis: Acute pharyngitis, unspecified[ICD10: J02.9] Diagnosis: URI, ACUTE[ICD10: J06.9] Josesito [facility] CPT-4: 99678 07/26/2018 ([id number]) PREV VISIT EST AGE 40-64 Diagnosis: Encounter for general adult medical examination without abnormal findings[ICD10: Z00.00] Diagnosis: Encounter for gynecological examination (general) (routine) without abnormal findings[ICD10: Z01.419] Diagnosis: Menopausal and female climacteric states[ICD10: N95.1] Diagnosis: Other abnormal and inconclusive findings on diagnostic imaging of breast[ICD10: R92.8] Josesito DEL ROSARIO [facility] CPT-4: 29124 07/06/2018 ([id number]) PREV VISIT EST AGE 40-64 Diagnosis: Encounter for general adult medical examination without abnormal findings[ICD10: Z00.00] Diagnosis: Encounter for gynecological examination (general) (routine) without abnormal findings[ICD10: Z01.419] Josesito [facility] CPT-4: 00289 06/30/2017 ([id number]) PREV VISIT EST AGE 40-64 Diagnosis: Encounter for general adult medical examination without abnormal findings[ICD10: Z00.00] Josesito DEL ROSARIO [facility] CPT-4: 55390 02/04/2016 ([id number]) PREV VISIT EST AGE 40-64 Diagnosis: ROUTINE MEDICAL EXAM[ICD9: V70.0] Diagnosis: MENOPAUSAL DISORDER[ICD9: 627.9] Josesito DEL ROSARIO [facility] CPT-4: 73588 12/19/2013 OFFICE/OUTPATIENT VISIT EST Diagnosis: MENOPAUSAL DISORDER[ICD9: 627.9] Josesito DEL ROSARIO [facility] CPT-4: 32277 10/27/2012 ([id number]) PREV VISIT EST AGE 40-64 Diagnosis: ROUTINE MEDICAL EXAM[ICD9: V70.0] Diagnosis: MENOPAUSAL DISORDER[ICD9: 627.9] Josesito DEL ROSARIO [facility] CPT-4: 55971 09/01/2012 PREV VISIT EST AGE 40-64 Diagnosis: ROUTINE GYNE EXAM[ICD9: V72.31] Diagnosis: ROUTINE MEDICAL EXAM[ICD9: V70.0] Josesito DEL [facility]ARIO [facility] CPT-4: 65800 02/03/2011 SPECIMEN HANDLING Diagnosis: [ICD9: ] Diagnosis: [ICD9: ] Josesito DEL ROSAR[facility] CPT-4: 9900 0 02/03/2011 ([id number]) PREV VISIT, EST, AGE 40-64 Josesito DEL [facility]AR[facility] CPT-4: 19082 12/25/2009 Plan of Care Planned Activity Notes [...] N61.0 05/02/2019 Appointment: Josesito Del Rosario tel: [address] [place], [place] [phone] ACUTE ILLNESS 05/02/2019 Patient Education: clindamycin HCl- [employer] Coupon [id number] [email or web address] Completed 05/02/2019 Care Plan: TRANSVAGINAL US NON-OB LOINC : 38304-5 Pending 10/21/2018 Appointment: Josesito Del Rosario WPtel: [address] [place], [place] [phone] WT CHECK 10/20/2018 Visit Diagnosis Plan: Adverse [...] R60.9 10/19/2018 Appointment: Josesito Del Rosario WPtel: [address] [place], [place] [phone] 10/19/2018 Appointment: Josesito Del Rosario WPtel: [address] [place], [place] [phone] US Per CANCELED 08/02/2018 Visit Diagnosis Plan: URI, ACUTE Discussion: CXR negat johnna Lungs clear Only physical exam finding is injection on throat and mild fluid behind ears Will increase zyrtec to BID Throat Culture Notify surgeon of current course ICD-9 : 465.9 ICD-10 : J06.9 07/29/2018 Appointment: Josesito Del Rosario WPtel: [address] [place], [place] [phone] WORK IN 07/29/2018 Visit Diagnosis Plan: Acute pharyngitis, unspecified D iscussion: Strep Negative Cover with Zithromax with upcoming surgery next week but if worsens will let us know and will have to postpone surgery ICD-9 : 462 ICD-10 : J02.9 07/26/2018 Visit NOS Plan: Plan Notes: Supportive care. Rest, Fluids... 07/26/2018 Appointment: Josesito Del Rosario WPtel: [facility] [id number] AC[place] ILL[facility] 07/26/2018 Visit Diagnosis Plan: Encounter [...] N95.1 07/06/2018 Appointment: Josesito Del Rosario WPtel: [facility] [id number] PAP 07/06/2018 Care Plan: MAMMOGRAM BOTH BREASTS Diagnostic Mammogram of [place] Breast LOINC : 88277-5 Pending 06/24/2018 Care Plan: US EXAM CHEST [...] : Z01.419 06/30/2017 Appointment: Josesito Del Rosariotel: [address] [place], [place] [phone] [place] PAP 06/30/2017 Patient Education: Patient Medication Summary Completed 06/30/2017 Visit Plan: Update fasting lab Pap done Had mammogram Weight bearing exercise 02/04/2016 Appointment: Josesito Del Rosario WPtel: [address] [place] [address] US 01/30 confirmed~sl PAP 02/04/2016 Patient Education: Patient Medication Summary Completed 02/04/2016 Appointment: Josesito Del Rosario WPtel: [address] [place] [address] US RESCHEDULED 01/17/2016 Patient Education: Patient Medication Summary Completed 12/31/2015 Care Plan: MAMMOGRAM SCREENING LOINC : 2 6347-5 Pending 12/31/2015 Visit Plan: Try to decrease fluoxetine t o 10mg daily Check Mammo Check fasting lab Check Colonoscopy due to family hx of Colon Cancer 12/19/2013 Appointment: Josesito Del Rosario WPtel: [address] [place], [place] [id number] [place] 12/16 vm PAP 12/19/2013 Patient Education: Patient Medication Summary Completed 12/19/2013 Visit Plan: Long discussion about HRT--p t has Breast Ca on both sides--Discussed BRCA gene testing in Mom Will try higher dose of fluoxetine 10/27/2012 Appointment: Josesito Del Rosario WPtel: [address] [place], [place] [id number] [place] FOLLOW UP 10/27/2012 Patient Education: Patient Medication Summary Completed 10/27/2012 Visit Plan: Lab discussed Add fish oil 3 grams daily Long discussion about hormones Trial of fluoxetine 09/01/2012 Appointment: Josesito Del Rosario WPtel: [address] [place], [place] [id number] [place] PAP 09/01/2012 Patient Education: Patient Medication Summary Completed 09/01/2012 Visit Plan: Pap Done and Mammogram order ed Fasting lab ordered 02/03/2011 Appointment: Josesito Del Rosario [facility]el[facility] [phone] [id number] [place] PAP 02/03/2011 Patient Education: Patient Medication Summary Completed 02/03/2011 Visit Plan: Pap done Mammo done last wee k Lab discussed Discussed Bioidentical Hormones 12/25/2009 Appointment: Josesito Del Rosario [facility]el[facility] [phone] [facility] [id number] [place] PAP 12/25/2009 Patient Education: Patient Medication Summary Completed 12/25/2009 Instructions Comment . Update fasting lab Pap done Had mammogram Weight bearing exercise . Try to decrease fluoxetine to 10mg kobe ly Check Mammo Check fasting lab Check Colonoscopy due to family hx of Colon Cancer . Long discussion about HRT--pt has [place] Ca on both sides--Discussed BRCA gene [...]
--- OUTSIDE RECORDS SUMMARY | 2019-05-15 23:44 | XMS REPORT | CCD ---
Author Author Caridad Del Rosario D.O. 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 Name Role Phone PP Unavailable CCM Unavailable Summary Purpose Interface Exchange Insurance Providers Payer name Policy type / Coverage type Covered libertarian ID Effective Begin Date Effective End Date [facility] Commercial Insurance [id number] Un known Family History Family History data [...] Instructions clindamycin HCl 300 mg capsule RxNorm: 619665 1 Capsule (s) Oral three times a day 05/02/2019 05/09/2019 Active fluoxetine 20 mg tablet RxNorm: 786754 1 Tablet(s) Oral QD 03/29/20 19 09/24/2019 Active Zithromax Z-Khoi 250 mg tablet RxNorm: 671299 Tablet(s) Oral as directed 03/25/2019 03/25/2019 Inactive Zithromax Z-Khoi 250 mg tablet RxNorm: 518722 Tablet(s) Oral as directed 03/25/2019 03/24/2019 Inactive famotidine 20 mg tablet RxNorm: 755148 1 Tablet(s) PO BID 10/19/2018 02/15/2019 Inactive Tessalon Perles 100 mg capsule RxNorm: 925850 1 Capsule (s) PO TID as needed for cough 07/26/2018 10/18/2018 Inactive Zithromax 500 mg tablet RxNorm: 947081 1 Tablet(s) PO QD 07/26/2018 0 07/25/2018 Inactive Zithromax 500 mg tablet RxNorm: 766185 1 Tablet(s) PO QD 07/26/2018 0 07/30/2018 Inactive Xanax 0.25 mg tablet RxNorm: 159814 1/2-1 Tablet(s) PO BID 06/01/19 19 No Stop Date Active fluoxetine 20 mg tablet RxNorm: 206002 1 Tablet(s) PO Q D Due for annual appointment in 06/01/2018 02/25/2019 Inactive fluoxetine 20 mg tablet RxNorm: 068587 1 Tablet(s) PO Q D Due for annual in [facility] 06/01/2018 02/25/2019 Inactive fluoxetine 20 mg tablet RxNorm: 482510 1 Tablet(s) PO QD 08/05/2017 1 07/02/2017 Inactive fluoxetine 20 mg tablet RxNorm: 799464 1 Tablet(s) PO QD 08/04/2017 0 08/04/2017 Inactive Xanax 0.25 mg tablet RxNorm: 709860 1/2-1 Tablet(s) PO BID 07/02/19 18 05/31/2018 Inactive fluoxetine 10 mg capsule RxNorm: 952930 2 Capsule(s) PO QAM 018 07/05/2018 Inactive Generic For:PROZAC 10 MG PUL VULE 09/24/2015 10:15:02 AM N O T I C E Last quantity doesn't match original quantity fluoxetine 10 mg capsule RxNorm: 947869 2 Capsule(s) PO QAM Routine wellness due after 02-04-17 12/03/2016 03/02/2017 Inactive Generic For:PROZ AC 10 MG PULVULE 09/24/2015 10:15:02 AM N O T I C E Last quantity doesn't match original quantity Xanax 0.25 mg tablet RxNorm: 160683 1/2-1 Tablet(s) PO BID 02/05/20 16 07/01/2017 Inactive fluoxetine 10 mg capsule RxNorm: 011373 2 Capsule(s) PO QAM 016 07/25/2018 Inactive fluoxetine 10 mg capsule RxNorm: 106970 2 Capsule(s) PO QAM 016 12/03/2016 Inactive Generic For:PROZAC 10 MG PUL VULE 09/24/2015 10:15:02 AM N O T I C E Last quantity doesn't match original quantity fluoxetine 10 mg capsule RxNorm: 657298 2 Capsule(s) PO QAM TAKE 2 CAPSULES BY MOUTH EVERY MORNING 11/16/2015 02/03/2016 Inactive Generic For: PROZAC 10 MG PULVULE 09/24/2015 10:15:02 AM N O T I C E Last quantity doesn't match original quantity fluoxetine 10 mg capsule RxNorm: 860021 2 Capsule(s) PO QAM TAKE 2 CAPSULES BY MOUTH EVERY MORNING 09/24/2015 11/15/2015 Inactive Generic For: PROZAC 10 MG PULVULE 09/24/2015 10:15:02 AM N O T I C E Last quantity doesn't match original quantity fluoxetine 10 mg capsule RxNorm: 171960 2 Capsule(s) PO QAM 015 09/24/2015 Inactive fluoxetine 10 mg capsule RxNorm: 039790 2 Capsule(s) PO QAM 015 07/28/2018 Inactive fluoxetine 10 mg capsule RxNorm: 801910 2 Capsule(s) PO QAM 014 05/21/2014 Inactive Xanax 0.25 mg tablet RxNorm: 375578 1/2-1 Tablet(s) PO BID 04/21/20 13 No Stop Date Active fluoxetine 10 mg capsule RxNorm: 007081 2 Capsule(s) PO QAM 013 01/24/2013 Inactive fluoxetine 10 mg capsule RxNorm: 416619 1 Capsule(s) PO QAM 013 10/26/2012 Inactive Multivitamin & Mineral Formula Tab RxNorm: 1 Tablet(s) PO QD No St art Date Active Zyrtec 10 mg tablet RxNorm: 9747652 1 Tablet(s) PO BID No Start Date Active Prilosec OTC 20 mg tablet,delayed release RxNorm: 067689 1 Tabl et(s) PO QD No Start Date Active Tessalon Perles 100 mg capsule RxNorm: 482407 1 Capsule (s) PO TID as needed for cough No Start Date 07/25/2018 Inactive Biotin Oral RxNorm: Oral No Start Date 10/18/2018 Inactive Zithromax Z-Khoi oral RxNorm: 58750 oral No Start Date 03/24/2019 Inactive Echinacea ACZ oral RxNorm: oral No Start Date 07/28/2018 Inacti ve Vitamin D3 1000 units Capsule RxNorm: 1 Capsule(s) PO QD No St art Date 07/28/2018 Inactive Black Cohosh Oral RxNorm: Oral No Start Date 07/28/2018 Inactiv e Xanax 0.25 mg tablet RxNorm: 580767 1/2-1 Tablet(s) PO BID No Start Date 04/20/2013 Inactive Zyrtec 10 mg tablet RxNorm: 4401533 1 Tablet(s) PO QD as needed No Start Date 10/18/2018 Inactive Vitamin C 1,000 mg tablet RxNorm: 991827 1 Tablet(s) PO QD No Start Date 10/18/2018 Inactive fluoxetine 20 mg tablet RxNorm: 129493 1 Tablet(s) PO QD No Start D ate 08/03/2017 Inactive Medication Administered No Medication Administered data Immunizations Vaccine Codes Date Status Influenza CVX: 141 04/08/2019 Influenza CVX: 141 04/26/2018 Results Observation Observation Code Item Item Code Result Date S ervice Location CULTURE, URINE, ROUTINE 395 CULTURE, URINE, ROUTINE 10/20/2018 [facility] [address] [place] [address] GFR CALC [id number] GFR Non Afr Amr >60 mL/min 07/05/2018 Un known GFR CALC 1609556 GFR Afr Amr >60 mL/min 07/05/2018 Unknow n FREE T4 46556 T4 Free 0.94 ng/dL 07/05/2018 Unknown [facility] 74341 Cholesterol 165 mg/dL 07/05/2018 Unkno wn [facility] 44846 Triglyceride 108 mg/dL 07/05/2018 Unkn own [facility] 59499 HDL CHOLESTEROL 50 mg/dL 07/05/2018 U nknown [facility] 35521 Chol/HDL Ratio 3.30 ratio 07/05/2018 U nknown [facility] 64801 NON-HDL Chol 115 mg/dL 07/05/2018 Unkn own [facility] 91315 LDL Cholesterol 93 mg/dL 07/05/2018 U nknown THYROID STIMULATING HORMONE 32082 TSH 0.937 uIU/mL 07/05/2018 Unknown COMPREHENSIVE METABOLIC 96990 AST 19 U/L 2018 Unknown COMPREHENSIVE METABOLIC 40192 ALT 21 U/L 2018 Unknown COMPREHENSIVE METABOLIC 63266 BUN 10 mg/dL 2018 Unknown COMPREHENSIVE METABOLIC 87812 ALBUMIN 4.3 g/dL 2018 Unknown COMPREHENSIVE METABOLIC 81995 CHLORIDE 106 mmol/L 07/05 Unknown COMPREHENSIVE METABOLIC 82794 Bili Total 0.3 mg/dL 07/05 Unknown COMPREHENSIVE METABOLIC 24200 ALK PHOS 59 U/L 2018 Unknown COMPREHENSIVE METABOLIC 82583 SODIUM 140 mmol/L 07/05 Unknown COMPREHENSIVE METABOLIC 42995 CREATININE 0.68 mg/dL 06/18 Unknown COMPREHENSIVE METABOLIC 56829 CALCIUM 9.2 mg/dL 2018 Unknown COMPREHENSIVE METABOLIC 11073 POTASSIUM 4.0 mmol/L 07/05 Unknown COMPREHENSIVE METABOLIC 64602 Total Protein 7.1 g/dL Unknown COMPREHENSIVE METABOLIC 61585 Glucose 84 mg/dL 2018 Unknown COMPREHENSIVE METABOLIC 58082 Bicarbonate 27 mmol/L 06/18 Unknown COMPREHENSIVE METABOLIC 55250 AGAP 7 mmol/L 2018 Unknown COMPLETE BLOOD COUNT 6334845 WBC 6.0 10e9/L 07/05/19 19 Unknown COMPLETE BLOOD COUNT 5972048 RBC 4.36 10e12/L 2018 Unknown COMPLETE BLOOD COUNT 2677977 HEMOGLOBIN 12.9 g/dL 07/05/19 19 Unknown COMPLETE BLOOD COUNT 9231181 HEMATOCRIT 39.1 % 07/05/19 19 Unknown COMPLETE BLOOD COUNT 8730554 MCV 89.7 fL 9 Unknown COMPLETE BLOOD COUNT 7272847 MCH 29.6 pg 9 Unknown COMPLETE BLOOD COUNT 5814405 MCHC 33.0 g/dL 9 Unknown COMPLETE BLOOD COUNT 2777935 PLATELET COUNT 270 10e9/L Unknown COMPLETE BLOOD COUNT 1970182 Mean Plt Volume 9.0 fL Unknown COMPLETE BLOOD COUNT 3309227 Neut Auto 53.8 % 9 Unknown COMPLETE BLOOD COUNT 9956149 Lymph Auto 35.8 % 07/05/19 19 Unknown COMPLETE BLOOD COUNT 4913444 [place] Auto 7.9 % 9 Unknown COMPLETE BLOOD COUNT 9669078 RDW 13.9 % 9 Unknown COMPLETE BLOOD COUNT 7114821 Eos Auto 2.0 % 9 Unknown COMPLETE BLOOD COUNT 5284199 Baso Auto 0.5 % 9 Unknown COMPLETE BLOOD COUNT 6929299 Neutrophil Abs 3.23 10e9/L Unknown COMPLETE BLOOD COUNT 3348000 Lymphocyte Abs 2.15 10e9/L Unknown COMPLETE BLOOD COUNT 7492115 Monocyte Abs 0.47 10e9/L 06/18 Unknown COMPLETE BLOOD COUNT 1673488 Eosinophil Abs 0.12 10e9/L Unknown COMPLETE BLOOD COUNT 7620168 RDW-SD 44.5 fL 9 Unknown COMPLETE BLOOD COUNT 6350822 Basophil Abs 0.03 10e9/L 06/18 Unknown FREE T4 35450 T4 Free 1.21 ng/dL 06/30/2017 Unknown GFR CALC 9582975 GFR Non Afr Amr >60 mL/min 06/30/2017 Un known GFR CALC 3928105 GFR Afr Amr >60 mL/min 06/30/2017 Unknow n THYROID STIMULATING HORMONE 09621 TSH 0.873 uIU/mL 06/30/2017 Unknown [facility] 49744 Cholesterol 175 mg/dL 06/30/2017 Unkno wn [facility] 73989 Triglyceride 129 mg/dL 06/30/2017 Unkn own [facility] 48900 HDL CHOLESTEROL 51 06/30/2017 U nknown [facility] 04077 Chol/HDL Ratio 3.43 ratio 06/30/2017 U nknown [facility] 09384 NON-HDL Chol 124 mg/dL 06/30/2017 Unkn own [facility] 95222 LDL Cholesterol 98 mg/dL 06/30/2017 U nknown COMPLETE BLOOD COUNT 7863604 WBC 6.2 10e9/L 06/30/19 18 Unknown COMPLETE BLOOD COUNT 7969473 RBC 4.58 10e12/L 2017 Unknown COMPLETE BLOOD COUNT 1624356 HEMOGLOBIN 13.3 g/dL 06/30/19 18 Unknown COMPLETE BLOOD COUNT 9565984 HEMATOCRIT 41.6 % 06/30/19 18 Unknown COMPLETE BLOOD COUNT 1251386 MCV 90.8 fL 8 Unknown COMPLETE BLOOD COUNT 7385777 MCH 29.0 pg 8 Unknown COMPLETE BLOOD COUNT 5951772 MCHC 32.0 g/dL 8 Unknown COMPLETE BLOOD COUNT 7376387 PLATELET COUNT 271 10e9/L Unknown COMPLETE BLOOD COUNT 1777509 Mean Plt Volume 8.9 fL Unknown COMPLETE BLOOD COUNT 6973160 Neut Auto 53.5 % 8 Unknown COMPLETE BLOOD COUNT 0911791 Lymph Auto 36.4 % 06/30/19 18 Unknown COMPLETE BLOOD COUNT 6274584 [place] Auto 8.1 % 8 Unknown COMPLETE BLOOD COUNT 5177074 RDW 13.4 % 8 Unknown COMPLETE BLOOD COUNT 0265110 Eos Auto 1.5 % 8 Unknown COMPLETE BLOOD COUNT 5513260 Baso Auto 0.5 % 8 Unknown COMPLETE BLOOD COUNT 8300065 Neutrophil Abs 3.32 10e9/L Unknown COMPLETE BLOOD COUNT 3117547 Lymphocyte Abs 2.26 10e9/L Unknown COMPLETE BLOOD COUNT 6423752 Monocyte Abs 0.50 10e9/L 06/18 Unknown COMPLETE BLOOD COUNT 8379616 Eosinophil Abs 0.09 10e9/L Unknown COMPLETE BLOOD COUNT 7325569 RDW-SD 43.9 fL 8 Unknown COMPLETE BLOOD COUNT 0037394 Basophil Abs 0.03 10e9/L 06/18 Unknown COMPREHENSIVE METABOLIC 90913 AST 19 U/L 2017 Unknown COMPREHENSIVE METABOLIC 43954 ALT 22 U/L 2017 Unknown COMPREHENSIVE METABOLIC 41250 BUN 12 mg/dL 2017 Unknown COMPREHENSIVE METABOLIC 97600 ALBUMIN 4.9 g/dL 2017 Unknown COMPREHENSIVE METABOLIC 67624 CHLORIDE 106 mmol/L 06/30 Unknown COMPREHENSIVE METABOLIC 24500 Bili Total 0.4 mg/dL 06/30 Unknown COMPREHENSIVE METABOLIC 74767 ALK PHOS 66 U/L 2017 Unknown COMPREHENSIVE METABOLIC 78727 SODIUM 143 mmol/L 06/30 Unknown COMPREHENSIVE METABOLIC 89700 CREATININE 0.71 mg/dL 06/18 Unknown COMPREHENSIVE METABOLIC 35866 CALCIUM 9.9 mg/dL 2017 Unknown COMPREHENSIVE METABOLIC 46765 POTASSIUM 4.1 mmol/L 06/30 Unknown COMPREHENSIVE METABOLIC 22204 Total Protein 8.0 g/dL Unknown COMPREHENSIVE METABOLIC 54586 Glucose 87 mg/dL 2017 Unknown COMPREHENSIVE METABOLIC 74126 Bicarbonate 27 mmol/L 06/18 Unknown COMPREHENSIVE METABOLIC 88776 AGAP 10 mmol/L 2017 Unknown GFR CALC 0508513 GFR AA >60 ML/MIN 12/19/2013 Unknown GFR CALC 6255779 GFR NON-AA >60 ML/MIN 12/19/2013 Unknown [facility] GROUP 97449 HDL TEST 52 MG/DL 12/19/2013 Unknown [facility] 90388 TRIG 96 MG/DL 12/19/2013 Unknown [facility] 48926 TEST LDL 98 MG/DL 12/19/2013 Unknown [facility] GROUP 83857 CHOL 169 MG/DL 12/19/2013 Unknown [facility] GROUP 67488 RCHOL/HDL 3.25 RATIO 12/19/2013 Unknow n [facility] 60393 NON-HDL CH 117 MG/DL 12/19/2013 Unknow n COMPLETE BLOOD COUNT 9280483 WBC 5.6 10e9/L 12/20/19 14 Unknown COMPLETE BLOOD COUNT 3761115 RBC 4.45 10e12/L 2013 Unknown COMPLETE BLOOD COUNT 9100728 HGB 13.0 g/dL 4 Unknown COMPLETE BLOOD COUNT 8763935 HCT DET 39.9 % 4 Unknown COMPLETE BLOOD COUNT 0433250 MCV 89.7 fL 4 Unknown COMPLETE BLOOD COUNT 1696581 MCH 29.2 pg 4 Unknown COMPLETE BLOOD COUNT 4142748 MCHC 32.6 g/dL 4 Unknown COMPLETE BLOOD COUNT 7067024 PLT 244 10e9/L 12/20/19 14 Unknown COMPLETE BLOOD COUNT 9716621 MPV 9.4 fL 4 Unknown COMPLETE BLOOD COUNT 0246003 PABLITO % 58.5 % 4 Unknown COMPLETE BLOOD COUNT 9189407 LY % 30.8 % 4 Unknown COMPLETE BLOOD COUNT 4976560 MON % 8.2 % 4 Unknown COMPLETE BLOOD COUNT 4582898 EOS % 2.0 % 4 Unknown COMPLETE BLOOD COUNT 9433216 BASO % 0.5 % 4 Unknown COMPLETE BLOOD COUNT 7767635 RDW 13.6 % 4 Unknown COMPLETE BLOOD COUNT 9253623 ABS PABLITO 3.28 10e9/L 014 Unknown COMPLETE BLOOD COUNT 9727244 ABS LYMPH 1.72 10e9/L 014 Unknown COMPLETE BLOOD COUNT 8594880 ABS MONO 0.46 10e9/L 014 Unknown COMPLETE BLOOD COUNT 9853062 ABS EOS 0.11 10e9/L 014 Unknown COMPLETE BLOOD COUNT 4517752 ABS BASO 0.03 10e9/L 014 Unknown COMPLETE BLOOD COUNT 7321588 RDW-SD 43.6 fL 4 Unknown FREE T4 48132 FREE T4 1.26 NG/DL 12/19/2013 Unknown COMPREHENSIVE METABOLIC 06060 AST 18 U/L 2013 Unknown COMPREHENSIVE METABOLIC 92248 ALT 22 IU/L 2013 Unknown COMPREHENSIVE METABOLIC 78041 BUN 11 MG/DL 2013 Unknown COMPREHENSIVE METABOLIC 70534 ALBUMIN 4.7 GM/DL 2013 Unknown COMPREHENSIVE METABOLIC 03162 CHLORIDE 108 MMOL/L 12/19 Unknown COMPREHENSIVE METABOLIC 60553 BILI TOT 0.3 MG/DL 2013 Unknown COMPREHENSIVE METABOLIC 62143 ALK PHOS 67 U/L 2013 Unknown COMPREHENSIVE METABOLIC 71973 SODIUM 141 MMOL/L 12/19 Unknown COMPREHENSIVE METABOLIC 96168 CREATININE 0.67 MG/DL 08/2013 Unknown COMPREHENSIVE METABOLIC 82499 CALCIUM 9.4 MG/DL 2013 Unknown COMPREHENSIVE METABOLIC 90912 POTASSIUM 4.1 MMOL/L 12/19 Unknown COMPREHENSIVE METABOLIC 50427 PROT TOT 7.0 GM/DL 2013 Unknown COMPREHENSIVE METABOLIC 01862 Glucose 94 MG/DL 2013 Unknown COMPREHENSIVE METABOLIC 63603 BICARB 27 MMOL/L 2013 Unknown COMPREHENSIVE METABOLIC 17608 ANION GAP 6 MEQ/L 2013 Unknown THYROID STIMULATING HORMONE 58906 TSH 0.547 uIU/ML 12/19/2013 Unknown GFR CALC 7513928 GFR AA >60 ML/MIN 02/03/2011 Unknown GFR CALC 8307387 GFR NON-AA >60 ML/MIN 02/03/2011 Unknown THYROID STIMULATING HORMONE 01332 TSH 0.818 uIU/ML 02/03/2011 Unknown COMPLETE BLOOD COUNT 00703 WBC 7.7 10e9/L 02/04/20 11 Unknown COMPLETE BLOOD COUNT 64561 RBC 4.23 10e12/L 2010 Unknown COMPLETE BLOOD COUNT 96765 HGB 11.9 g/dL 1 Unknown COMPLETE BLOOD COUNT 89481 HCT DET 36.5 % 1 Unknown COMPLETE BLOOD COUNT 00801 MCV 86.3 fL 1 Unknown COMPLETE BLOOD COUNT 23129 MCH 28.1 pg 1 Unknown COMPLETE BLOOD COUNT 22902 MCHC 32.6 g/dL 1 Unknown COMPLETE BLOOD COUNT 03146 PLT 244 10e9/L 02/04/20 11 Unknown COMPLETE BLOOD COUNT 30522 MPV 8.7 fL 1 Unknown COMPLETE BLOOD COUNT 89418 PABLITO % 58.9 % 1 Unknown COMPLETE BLOOD COUNT 58479 LY % 31.1 % 1 Unknown COMPLETE BLOOD COUNT 32459 MON % 7.9 % 1 Unknown COMPLETE BLOOD COUNT 26495 EOS % 1.8 % 1 Unknown COMPLETE BLOOD COUNT 10754 BASO % 0.3 % 1 Unknown COMPLETE BLOOD COUNT 01669 RDW 14.7 % 1 Unknown COMPLETE BLOOD COUNT 50301 ABS PABLITO 4.54 10e9/L 011 Unknown COMPLETE BLOOD COUNT 17884 ABS LYMPH 2.39 10e9/L 011 Unknown COMPLETE BLOOD COUNT 24066 ABS MONO 0.61 10e9/L 011 Unknown COMPLETE BLOOD COUNT 12325 ABS EOS 0.14 10e9/L 011 Unknown COMPLETE BLOOD COUNT 40144 ABS BASO 0.02 10e9/L 011 Unknown COMPLETE BLOOD COUNT 70817 RDW-SD 45.1 fL 1 Unknown COMPREHENSIVE METABOLIC 49074 AST 16 U/L 2010 Unknown COMPREHENSIVE METABOLIC 34892 ALT 21 IU/L 2010 Unknown COMPREHENSIVE METABOLIC 50636 BUN 9 MG/DL 2010 Unknown COMPREHENSIVE METABOLIC 65812 ALBUMIN 4.5 GM/DL 2010 Unknown COMPREHENSIVE METABOLIC 71912 CHLORIDE 104 MMOL/L 02/03 Unknown COMPREHENSIVE METABOLIC 67956 BILI TOT 0.2 MG/DL 2010 Unknown COMPREHENSIVE METABOLIC 27485 ALK PHOS 65 U/L 2010 Unknown COMPREHENSIVE METABOLIC 47937 SODIUM 137 MMOL/L 02/03 Unknown COMPREHENSIVE METABOLIC 09137 CREATININE 0.64 MG/DL 01/16 Unknown COMPREHENSIVE METABOLIC 25346 CALCIUM 8.8 MG/DL 2010 Unknown COMPREHENSIVE METABOLIC 62678 POTASSIUM 3.8 MMOL/L 02/03 Unknown COMPREHENSIVE METABOLIC 65187 PROT TOT 6.7 GM/DL 2010 Unknown COMPREHENSIVE METABOLIC 74915 Glucose 88 MG/DL 2010 Unknown COMPREHENSIVE METABOLIC 83188 BICARB 26 MMOL/L 2010 Unknown COMPREHENSIVE METABOLIC 21721 ANION GAP 7 MEQ/L 2010 Unknown FREE T4 54722 FREE T4 1.24 NG/DL 02/03/2011 Unknown Procedures Procedure Codes Date CEFTRIAXONE SODIUM INJECTION CPT-4: J0696 05/03/2019 THER/PROPH/DIAG INJ SC/IM CPT-4: 37331 05/03/2019 CEFTRIAXONE SODIUM INJECTION CPT-4: J0696 05/02/2019 THER/PROPH/DIAG INJ SC/IM CPT-4: 14168 05/02/2019 DEXAMETHASONE SODIUM PHOS CPT-4: J1100 10/19/2018 THER/PROPH/DIAG INJ SC/IM CPT-4: 82184 10/19/2018 URINE CULTURE/ COLONY COUNT CPT-4: 03170 10/19/2018 URINALYSIS NONAUTO W/O SCOPE CPT-4: 28159 10/19/2018 THROAT CULTURE CPT-4: 42041 07/29/2018 STREP A ASSAY W/OPTIC CPT-4: 47246 07/26/2018 SPECIMEN HANDLING OFFICE-LAB CPT-4: 97108 07/06/2018 OCCULT BLOOD FECES CPT-4: 55932 07/06/2018 ROUTINE VENIPUNCTURE CPT-4: 28874 12/19/2013 ASSAY OF FREE THYROXINE CPT-4: 65353 12/19/2013 ASSAY THYROID STIM HORMONE CPT-4: 91029 12/19/2013 COMPREHEN METABOLIC PANEL CPT-4: 83421 12/19/2013 COMPLETE CBC W/AUTO DIFF WBC CPT-4: 82630 12/19/2013 LIPID PANEL CPT-4: 98772 12/19/2013 OCCULT BLOOD FECES CPT-4: 01008 02/03/2011 SPECIMEN HANDLING OFFICE-LAB CPT-4: 86780 12/25/2009 OCCULT BLOOD FECES CPT-4: 79330 12/25/2009 Vital Signs Date Vital 05/03/2019 Blood [...] 1: 130/78 Code: 8480-6 BMI: 30.7 Code: 40233-3 Heart Rate 1: 76 bpm Height: 5'9" Respiratory Rate: 20 bpm Temperature: 36 .8 (C) / 98.3 (F) Weight: 208 lbs 06/30/2017 Blood Pressure 1: 126/80 Code: 8480-6 BMI: 30.9 Code: 37827-5 Heart Rate 1: 72 bpm Height: 5'9" Respiratory Rate: 20 bpm Temperature: 36 .7 (C) / 98.0 (F) Weight: 209 lbs 02/04/2016 Blood Pressure 1: 122/80 Code: 8480-6 BMI: 31.3 Code: 43931-2 Heart Rate 1: 80 bpm Height: 5'9" Respiratory Rate: 20 bpm Temperature: 36 .6 (C) / 97.8 (F) Weight: 212 lbs 12/19/2013 Blood Pressure 1: 116/78 Code: 8480-6 BMI: 30.1 Code: 58192-2 Heart Rate 1: 76 bpm Height: 5'9" Respiratory Rate: 20 bpm Temperature: 36 .8 (C) / 98.3 (F) Weight: 204 lbs 10/27/2012 Blood Pressure 1: 114/70 Code: 8480-6 BMI: 30.3 Code: 19537-5 Heart Rate 1: 68 bpm Height: 5'9" Respiratory Rate: 20 bpm Temperature: 36 .8 (C) / 98.3 (F) Weight: 205 lbs 09/01/2012 Blood Pressure 1: 118/82 Code: 8480-6 BMI: 30.9 Code: 47870-8 Heart Rate 1: 80 bpm Height: 5'9" Respiratory Rate: 20 bpm Temperature: 36 .8 (C) / 98.2 (F) Weight: 209 lbs 02/03/2011 Blood Pressure 1: 118/76 Code: 8480-6 BMI: 29.5 Code: 05113-5 Heart Rate 1: 72 bpm Height: 5'9" Weight: 200 lbs 12/25/2009 Blood Pressure 1: 122/76 Code: 8480-6 BMI: 29.5 Code: 97784-0 Heart Rate 1: 80 bpm Height: 5'9" [...] 11/24 Encounters Encounter Performer Location Codes Date ([id number]) OFFICE/OUTPATIENT VISIT EST Diagnosis: Cellulitis of right breast[ICD10: N61.0] [facility] CPT-4: 31817 05/03/2019 ([id number]) OFFICE/OUTPATIENT VISIT EST Diagnosis: Cellulitis of right breast[ICD10: N61.0] [facility] CPT-4: 72978 05/02/2019 ([id number]) OFFICE/OUTPATIENT VISIT EST Diagnosis: Edema, unspecified[ICD10: R60.9] Diagnosis: Adverse effect of unspecified drugs, medicaments and biological substances, initial encounter[ICD10: T50.905A] Diagnosis: Gross hematuria[ICD10: R31.0] [facility] CPT-4: 28998 10/19/2018 ([id number]) OFFICE/OUTPATIENT VISIT EST Diagnosis: URI, ACUTE[ICD10: J06.9] [facility] CPT-4: 52297 07/29/2018 ([id number]) OFFICE/OUTPATIENT VISIT EST Diagnosis: Acute pharyngitis, unspecified[ICD10: J02.9] Diagnosis: URI, ACUTE[ICD10: J06.9] [facility] CPT-4: 27493 07/26/2018 ([id number]) PREV VISIT EST AGE 40-64 Diagnosis: Encounter for general adult medical examination without abnormal findings[ICD10: Z00.00] Diagnosis: Encounter for gynecological examination (general) (routine) without abnormal findings[ICD10: Z01.419] Diagnosis: Menopausal and female climacteric states[ICD10: N95.1] Diagnosis: Other abnormal and inconclusive findings on diagnostic imaging of breast[ICD10: R92.8] [facility] CPT-4: 01443 07/06/2018 ([id number]) PREV VISIT EST AGE 40-64 Diagnosis: Encounter for general adult medical examination without abnormal findings[ICD10: Z00.00] Diagnosis: Encounter for gynecological examination (general) (routine) without abnormal findings[ICD10: Z01.419] Josesito [facility] [employer] CPT-4: 99707 06/30/2017 ([id number]) PREV VISIT EST AGE 40-64 Diagnosis: Encounter for general adult medical examination without abnormal findings[ICD10: Z00.00] [facility] CPT-4: 46777 02/04/2016 ([id number]) PREV VISIT EST AGE 40-64 Diagnosis: ROUTINE MEDICAL EXAM[ICD9: V70.0] Diagnosis: MENOPAUSAL DISORDER[ICD9: 627.9] [facility] CPT-4: 71775 12/19/2013 OFFICE/OUTPATIENT VISIT EST Diagnosis: MENOPAUSAL DISORDER[ICD9: 627.9] [facility] CPT-4: 54963 10/27/2012 ([id number]) PREV VISIT EST AGE 40-64 Diagnosis: ROUTINE MEDICAL EXAM[ICD9: V70.0] Diagnosis: MENOPAUSAL DISORDER[ICD9: 627.9] [facility] CPT-4: 42128 09/01/2012 PREV VISIT EST AGE 40-64 Diagnosis: ROUTINE GYNE EXAM[ICD9: V72.31] Diagnosis: ROUTINE MEDICAL EXAM[ICD9: V70.0] [facility] CPT-4: 80277 02/03/2011 SPECIMEN HANDLING Diagnosis: [ICD9: ] Diagnosis: [ICD9: ] [facility] CPT-4: 9900 0 02/03/2011 ([id number]) PREV VISIT, EST, AGE 40-64 [facility] CPT-4: 74707 12/25/2009 Plan of Care Planned Activity Notes [...] N61.0 05/02/2019 Appointment: Josesito Del Rosario tel: [address] [place], [place] [phone] ACUTE ILLNESS 05/02/2019 Patient Education: clindamycin HCl- [employer] Coupon [id number] [email or web address] Completed 05/02/2019 Care Plan: TRANSVAGINAL US NON-OB LOINC : 51598-4 Pending 10/21/2018 Appointment: Josesito Del Rosario WPtel: [address] [place], [place] [phone] WT CHECK 10/20/2018 Visit Diagnosis Plan: Adverse [...] R60.9 10/19/2018 Appointment: Josesito Del Rosario WPtel: [address] [place], [place] [phone] 10/19/2018 Appointment: Josesito Del Rosario WPtel: [address] [place], [place] [phone] US Per CANCELED 08/02/2018 Visit Diagnosis Plan: URI, ACUTE Discussion: CXR negat johnna Lungs clear Only physical exam finding is injection on throat and mild fluid behind ears Will increase zyrtec to BID Throat Culture Notify surgeon of current course ICD-9 : 465.9 ICD-10 : J06.9 07/29/2018 Appointment: Josesito Del Rosario WPtel: [address] [place], [place] [phone] WORK IN 07/29/2018 Visit Diagnosis Plan: Acute pharyngitis, unspecified D iscussion: Strep Negative Cover with Zithromax with upcoming surgery next week but if worsens will let us know and will have to postpone surgery ICD-9 : 462 ICD-10 : J02.9 07/26/2018 Visit NOS Plan: Plan Notes: Supportive care. Rest, Fluids... 07/26/2018 Appointment: Josesito Del Rosario WPtel: [id number] [facility] [...] Rosario WPtel: [id number] P[facility] 07/06/2018 Care Plan: MAMMOGRAM BOTH BREASTS Diagnostic Mammogram of [place] Breast LOINC : 56579-5 Pending 06/24/2018 Care Plan: US EXAM CHEST [...] : Z01.419 06/30/2017 Appointment: Josesito Del Rosariotel: [address] [place], [place] [phone] [place] PAP 06/30/2017 Patient Education: Patient Medication Summary Completed 06/30/2017 Visit Plan: Update fasting lab Pap done Had mammogram Weight bearing exercise 02/04/2016 Appointment: Josesito Del Rosario WPtel: [address] [place] [address] US 01/30 confirmed~sl PAP 02/04/2016 Patient Education: Patient Medication Summary Completed 02/04/2016 Appointment: Josesito Del Rosario WPtel: [address] [place] [address] US RESCHEDULED 01/17/2016 Patient Education: Patient Medication Summary Completed 12/31/2015 Care Plan: MAMMOGRAM SCREENING LOINC : 2 6347-5 Pending 12/31/2015 Visit Plan: Try to decrease fluoxetine t o 10mg daily Check Mammo Check fasting lab Check Colonoscopy due to family hx of Colon Cancer 12/19/2013 Appointment: Josesito Del Rosario WPtel: [address] [address] [place], [place] [id number] [place] 12/16 vm PAP 12/19/2013 Patient Education: Patient Medication Summary Completed 12/19/2013 Visit Plan: Long discussion about HRT--p t has Breast Ca on both sides--Discussed BRCA gene testing in Mom Will try higher dose of fluoxetine 10/27/2012 Appointment: Josesito Del Rosario WPtel: [address] [place], [place] [id number] [place] FOLLOW UP 10/27/2012 Patient Education: Patient Medication Summary Completed 10/27/2012 Visit Plan: Lab discussed Add fish oil 3 grams daily Long discussion about hormones Trial of fluoxetine 09/01/2012 Appointment: Josesito Del Rosario WPtel: [address] [place], [place] [id number] [place] PAP 09/01/2012 Patient Education: Patient Medication [...] Cancer . Long discussion about HRT--pt has [address] st Ca on both sides--Discussed BRCA gene [...]
--- OUTSIDE RECORDS SUMMARY | 2019-05-15 23:44 | XMS REPORT | CCD ---
Author Author Caridad Del Rosario D.O. Organization [facility]ESITO [facility]AR[facility] Address [address] [place] [address] Phone Care Team Providers Care Tool Distributor Name Role Phone PP Unavailable CCM Unavailable Summary Purpose Interface Exchange Insurance Providers Payer name Policy type / Coverage type Covered alliance party ID Effective Begin Date Effective End Date [facility] Commercial Insurance [id number] Un known Family History Family History data [...] Instructions clindamycin HCl 300 mg capsule RxNorm: 857779 1 Capsule (s) Oral three times a day 05/02/2019 05/09/2019 Active fluoxetine 20 mg tablet RxNorm: 177746 1 Tablet(s) Oral QD 03/29/20 19 09/24/2019 Active Zithromax Z-Khoi 250 mg tablet RxNorm: 154889 Tablet(s) Oral as directed 03/25/2019 03/25/2019 Inactive Zithromax Z-Khoi 250 mg tablet RxNorm: 096928 Tablet(s) Oral as directed 03/25/2019 03/24/2019 Inactive famotidine 20 mg tablet RxNorm: 455479 1 Tablet(s) PO BID 10/19/2018 02/15/2019 Inactive Tessalon Perles 100 mg capsule RxNorm: 034268 1 Capsule (s) PO TID as needed for cough 07/26/2018 10/18/2018 Inactive Zithromax 500 mg tablet RxNorm: 068732 1 Tablet(s) PO QD 07/26/2018 0 07/25/2018 Inactive Zithromax 500 mg tablet RxNorm: 627746 1 Tablet(s) PO QD 07/26/2018 0 07/30/2018 Inactive Xanax 0.25 mg tablet RxNorm: 889600 1/2-1 Tablet(s) PO BID 06/01/19 19 No Stop Date Active fluoxetine 20 mg tablet RxNorm: 541567 1 Tablet(s) PO Q D Due for annual appointment in 06/01/2018 02/25/2019 Inactive fluoxetine 20 mg tablet RxNorm: 530272 1 Tablet(s) PO Q D Due for annual in [facility] 06/01/2018 02/25/2019 Inactive fluoxetine 20 mg tablet RxNorm: 887663 1 Tablet(s) PO QD 08/05/2017 1 07/02/2017 Inactive fluoxetine 20 mg tablet RxNorm: 062809 1 Tablet(s) PO QD 08/04/2017 0 08/04/2017 Inactive Xanax 0.25 mg tablet RxNorm: 343203 1/2-1 Tablet(s) PO BID 07/02/19 18 05/31/2018 Inactive fluoxetine 10 mg capsule RxNorm: 831532 2 Capsule(s) PO QAM 018 07/05/2018 Inactive Generic For:PROZAC 10 MG PUL VULE 09/24/2015 10:15:02 AM N O T I C E Last quantity doesn't match original quantity fluoxetine 10 mg capsule RxNorm: 577402 2 Capsule(s) PO QAM Routine wellness due after 02-04-17 12/03/2016 03/02/2017 Inactive Generic For:PROZ AC 10 MG PULVULE 09/24/2015 10:15:02 AM N O T I C E Last quantity doesn't match original quantity Xanax 0.25 mg tablet RxNorm: 359260 1/2-1 Tablet(s) PO BID 02/05/20 16 07/01/2017 Inactive fluoxetine 10 mg capsule RxNorm: 387568 2 Capsule(s) PO QAM 016 07/25/2018 Inactive fluoxetine 10 mg capsule RxNorm: 127363 2 Capsule(s) PO QAM 016 12/03/2016 Inactive Generic For:PROZAC 10 MG PUL VULE 09/24/2015 10:15:02 AM N O T I C E Last quantity doesn't match original quantity fluoxetine 10 mg capsule RxNorm: 088591 2 Capsule(s) PO QAM TAKE 2 CAPSULES BY MOUTH EVERY MORNING 11/16/2015 02/03/2016 Inactive Generic For: PROZAC 10 MG PULVULE 09/24/2015 10:15:02 AM N O T I C E Last quantity doesn't match original quantity fluoxetine 10 mg capsule RxNorm: 419717 2 Capsule(s) PO QAM TAKE 2 CAPSULES BY MOUTH EVERY MORNING 09/24/2015 11/15/2015 Inactive Generic For: PROZAC 10 MG PULVULE 09/24/2015 10:15:02 AM N O T I C E Last quantity doesn't match original quantity fluoxetine 10 mg capsule RxNorm: 551793 2 Capsule(s) PO QAM 015 09/24/2015 Inactive fluoxetine 10 mg capsule RxNorm: 959685 2 Capsule(s) PO QAM 015 07/28/2018 Inactive fluoxetine 10 mg capsule RxNorm: 065763 2 Capsule(s) PO QAM 014 05/21/2014 Inactive Xanax 0.25 mg tablet RxNorm: 008927 1/2-1 Tablet(s) PO BID 04/21/20 13 No Stop Date Active fluoxetine 10 mg capsule RxNorm: 282902 2 Capsule(s) PO QAM 013 01/24/2013 Inactive fluoxetine 10 mg capsule RxNorm: 158927 1 Capsule(s) PO QAM 013 10/26/2012 Inactive Multivitamin & Mineral Formula Tab RxNorm: 1 Tablet(s) PO QD No St art Date Active Zyrtec 10 mg tablet RxNorm: 6539194 1 Tablet(s) PO BID No Start Date Active Prilosec OTC 20 mg tablet,delayed release RxNorm: 963236 1 Tabl et(s) PO QD No Start Date Active Tessalon Perles 100 mg capsule RxNorm: 939715 1 Capsule (s) PO TID as needed for cough No Start Date 07/25/2018 Inactive Biotin Oral RxNorm: Oral No Start Date 10/18/2018 Inactive Zithromax Z-Khoi oral RxNorm: 42208 oral No Start Date 03/24/2019 Inactive Echinacea ACZ oral RxNorm: oral No Start Date 07/28/2018 Inacti ve Vitamin D3 1000 units Capsule RxNorm: 1 Capsule(s) PO QD No St art Date 07/28/2018 Inactive Black Cohosh Oral RxNorm: Oral No Start Date 07/28/2018 Inactiv e Xanax 0.25 mg tablet RxNorm: 895563 1/2-1 Tablet(s) PO BID No Start Date 04/20/2013 Inactive Zyrtec 10 mg tablet RxNorm: 0422140 1 Tablet(s) PO QD as needed No Start Date 10/18/2018 Inactive Vitamin C 1,000 mg tablet RxNorm: 209565 1 Tablet(s) PO QD No Start Date 10/18/2018 Inactive fluoxetine 20 mg tablet RxNorm: 602998 1 Tablet(s) PO QD No Start D ate 08/03/2017 Inactive Medication Administered No Medication Administered data Immunizations Vaccine Codes Date Status Influenza CVX: 141 04/08/2019 Influenza CVX: 141 04/26/2018 Results Observation Observation Code Item Item Code Result Date S ervice Location CULTURE, URINE, ROUTINE 395 CULTURE, URINE, ROUTINE 10/20/2018 [facility] [address] [place] [address] GFR CALC 8993116 GFR Non Afr Amr >60 mL/min 07/05/2018 Un known GFR CALC 7851044 GFR Afr Amr >60 mL/min 07/05/2018 Unknow n FREE T4 20224 T4 Free 0.94 ng/dL 07/05/2018 Unknown [facility] 94914 Cholesterol 165 mg/dL 07/05/2018 Unkno wn [facility] 39383 Triglyceride 108 mg/dL 07/05/2018 Unkn own [facility] 89679 HDL CHOLESTEROL 50 mg/dL 07/05/2018 U nknown [facility] 61091 Chol/HDL Ratio 3.30 ratio 07/05/2018 U nknown [facility] 83526 NON-HDL Chol 115 mg/dL 07/05/2018 Unkn own [facility] 42696 LDL Cholesterol 93 mg/dL 07/05/2018 U nknown THYROID STIMULATING HORMONE 59699 TSH 0.937 uIU/mL 07/05/2018 Unknown COMPREHENSIVE METABOLIC 52108 AST 19 U/L 2018 Unknown COMPREHENSIVE METABOLIC 64092 ALT 21 U/L 2018 Unknown COMPREHENSIVE METABOLIC 51635 BUN 10 mg/dL 2018 Unknown COMPREHENSIVE METABOLIC 03278 ALBUMIN 4.3 g/dL 2018 Unknown COMPREHENSIVE METABOLIC 00253 CHLORIDE 106 mmol/L 07/05 Unknown COMPREHENSIVE METABOLIC 77755 Bili Total 0.3 mg/dL 07/05 Unknown COMPREHENSIVE METABOLIC 18128 ALK PHOS 59 U/L 2018 Unknown COMPREHENSIVE METABOLIC 56262 SODIUM 140 mmol/L 07/05 Unknown COMPREHENSIVE METABOLIC 81829 CREATININE 0.68 mg/dL 06/18 Unknown COMPREHENSIVE METABOLIC 58094 CALCIUM 9.2 mg/dL 2018 Unknown COMPREHENSIVE METABOLIC 43897 POTASSIUM 4.0 mmol/L 07/05 Unknown COMPREHENSIVE METABOLIC 23878 Total Protein 7.1 g/dL Unknown COMPREHENSIVE METABOLIC 10129 Glucose 84 mg/dL 2018 Unknown COMPREHENSIVE METABOLIC 72024 Bicarbonate 27 mmol/L 06/18 Unknown COMPREHENSIVE METABOLIC 26123 AGAP 7 mmol/L 2018 Unknown COMPLETE BLOOD COUNT 4125044 WBC 6.0 10e9/L 07/05/19 19 Unknown COMPLETE BLOOD COUNT 2955022 RBC 4.36 10e12/L 2018 Unknown COMPLETE BLOOD COUNT 3430877 HEMOGLOBIN 12.9 g/dL 07/05/19 19 Unknown COMPLETE BLOOD COUNT 6372785 HEMATOCRIT 39.1 % 07/05/19 19 Unknown COMPLETE BLOOD COUNT 0286319 MCV 89.7 fL 9 Unknown COMPLETE BLOOD COUNT 7356794 MCH 29.6 pg 9 Unknown COMPLETE BLOOD COUNT 6203601 MCHC 33.0 g/dL 9 Unknown COMPLETE BLOOD COUNT 4088495 PLATELET COUNT 270 10e9/L Unknown COMPLETE BLOOD COUNT 2087495 Mean Plt Volume 9.0 fL Unknown COMPLETE BLOOD COUNT 7533631 Neut Auto 53.8 % 9 Unknown COMPLETE BLOOD COUNT 3540203 Lymph Auto 35.8 % 07/05/19 19 Unknown COMPLETE BLOOD COUNT 0746381 Heard Auto 7.9 % 9 Unknown COMPLETE BLOOD COUNT 5119424 RDW 13.9 % 9 Unknown COMPLETE BLOOD COUNT 0355410 Eos Auto 2.0 % 9 Unknown COMPLETE BLOOD COUNT 1834871 Baso Auto 0.5 % 9 Unknown COMPLETE BLOOD COUNT 1245022 Neutrophil Abs 3.23 10e9/L Unknown COMPLETE BLOOD COUNT 1813129 Lymphocyte Abs 2.15 10e9/L Unknown COMPLETE BLOOD COUNT 8625537 Monocyte Abs 0.47 10e9/L 06/18 Unknown COMPLETE BLOOD COUNT 2971258 Eosinophil Abs 0.12 10e9/L Unknown COMPLETE BLOOD COUNT 4222379 RDW-SD 44.5 fL 9 Unknown COMPLETE BLOOD COUNT 1551734 Basophil Abs 0.03 10e9/L 06/18 Unknown FREE T4 33596 T4 Free 1.21 ng/dL 06/30/2017 Unknown GFR CALC 6425210 GFR Non Afr Amr >60 mL/min 06/30/2017 Un known GFR CALC 1920068 GFR Afr Amr >60 mL/min 06/30/2017 Unknow n THYROID STIMULATING HORMONE 11186 TSH 0.873 uIU/mL 06/30/2017 Unknown [facility] 00353 Cholesterol 175 mg/dL 06/30/2017 Unkno wn [facility] 03269 Triglyceride 129 mg/dL 06/30/2017 Unkn own [facility] 81136 HDL CHOLESTEROL 51 06/30/2017 U nknown [facility] 89992 Chol/HDL Ratio 3.43 ratio 06/30/2017 U nknown [facility] 42819 NON-HDL Chol 124 mg/dL 06/30/2017 Unkn own [facility] 41070 LDL Cholesterol 98 mg/dL 06/30/2017 U nknown COMPLETE BLOOD COUNT 5490302 WBC 6.2 10e9/L 06/30/19 18 Unknown COMPLETE BLOOD COUNT 0082128 RBC 4.58 10e12/L 2017 Unknown COMPLETE BLOOD COUNT 9424689 HEMOGLOBIN 13.3 g/dL 06/30/19 18 Unknown COMPLETE BLOOD COUNT 4531323 HEMATOCRIT 41.6 % 06/30/19 18 Unknown COMPLETE BLOOD COUNT 5648323 MCV 90.8 fL 8 Unknown COMPLETE BLOOD COUNT 3842392 MCH 29.0 pg 8 Unknown COMPLETE BLOOD COUNT 4676537 MCHC 32.0 g/dL 8 Unknown COMPLETE BLOOD COUNT 3173091 PLATELET COUNT 271 10e9/L Unknown COMPLETE BLOOD COUNT 1605921 Mean Plt Volume 8.9 fL Unknown COMPLETE BLOOD COUNT 8279579 Neut Auto 53.5 % 8 Unknown COMPLETE BLOOD COUNT 6816040 Lymph Auto 36.4 % 06/30/19 18 Unknown COMPLETE BLOOD COUNT 4443631 Heard Auto 8.1 % 8 Unknown COMPLETE BLOOD COUNT 5980501 RDW 13.4 % 8 Unknown COMPLETE BLOOD COUNT 9325100 Eos Auto 1.5 % 8 Unknown COMPLETE BLOOD COUNT 1552822 Baso Auto 0.5 % 8 Unknown COMPLETE BLOOD COUNT 9610351 Neutrophil Abs 3.32 10e9/L Unknown COMPLETE BLOOD COUNT 4234421 Lymphocyte Abs 2.26 10e9/L Unknown COMPLETE BLOOD COUNT 0880070 Monocyte Abs 0.50 10e9/L 06/18 Unknown COMPLETE BLOOD COUNT 1550438 Eosinophil Abs 0.09 10e9/L Unknown COMPLETE BLOOD COUNT 1685391 RDW-SD 43.9 fL 8 Unknown COMPLETE BLOOD COUNT 2594458 Basophil Abs 0.03 10e9/L 06/18 Unknown COMPREHENSIVE METABOLIC 50416 AST 19 U/L 2017 Unknown COMPREHENSIVE METABOLIC 32779 ALT 22 U/L 2017 Unknown COMPREHENSIVE METABOLIC 86657 BUN 12 mg/dL 2017 Unknown COMPREHENSIVE METABOLIC 91577 ALBUMIN 4.9 g/dL 2017 Unknown COMPREHENSIVE METABOLIC 22158 CHLORIDE 106 mmol/L 06/30 Unknown COMPREHENSIVE METABOLIC 91104 Bili Total 0.4 mg/dL 06/30 Unknown COMPREHENSIVE METABOLIC 57686 ALK PHOS 66 U/L 2017 Unknown COMPREHENSIVE METABOLIC 79965 SODIUM 143 mmol/L 06/30 Unknown COMPREHENSIVE METABOLIC 24722 CREATININE 0.71 mg/dL 06/18 Unknown COMPREHENSIVE METABOLIC 25354 CALCIUM 9.9 mg/dL 2017 Unknown COMPREHENSIVE METABOLIC 71803 POTASSIUM 4.1 mmol/L 06/30 Unknown COMPREHENSIVE METABOLIC 55347 Total Protein 8.0 g/dL Unknown COMPREHENSIVE METABOLIC 93051 Glucose 87 mg/dL 2017 Unknown COMPREHENSIVE METABOLIC 29449 Bicarbonate 27 mmol/L 06/18 Unknown COMPREHENSIVE METABOLIC 42730 AGAP 10 mmol/L 2017 Unknown GFR CALC 7043489 GFR AA >60 ML/MIN 12/19/2013 Unknown GFR CALC 8559983 GFR NON-AA >60 ML/MIN 12/19/2013 Unknown LIP[facility] GROUP 79907 HDL TEST 52 MG/DL 12/19/2013 Unknown [facility] 25500 TRIG 96 MG/DL 12/19/2013 Unknown [facility] 35107 TEST LDL 98 MG/DL 12/19/2013 Unknown [facility] 44502 CHOL 169 MG/DL 12/19/2013 Unknown L[facility] GROUP 93492 RCHOL/HDL 3.25 RATIO 12/19/2013 Unknow n [facility] GROUP 44468 NON-HDL CH 117 MG/DL 12/19/2013 Unknow n COMPLETE BLOOD COUNT 4522523 WBC 5.6 10e9/L 12/20/19 14 Unknown COMPLETE BLOOD COUNT 9713788 RBC 4.45 10e12/L 2013 Unknown COMPLETE BLOOD COUNT 1961054 HGB 13.0 g/dL 4 Unknown COMPLETE BLOOD COUNT 7274410 HCT DET 39.9 % 4 Unknown COMPLETE BLOOD COUNT 2056755 MCV 89.7 fL 4 Unknown COMPLETE BLOOD COUNT 4597985 MCH 29.2 pg 4 Unknown COMPLETE BLOOD COUNT 6222478 MCHC 32.6 g/dL 4 Unknown COMPLETE BLOOD COUNT 8013747 PLT 244 10e9/L 12/20/19 14 Unknown COMPLETE BLOOD COUNT 7098975 MPV 9.4 fL 4 Unknown COMPLETE BLOOD COUNT 5025919 PABLITO % 58.5 % 4 Unknown COMPLETE BLOOD COUNT 4770035 LY % 30.8 % 4 Unknown COMPLETE BLOOD COUNT 9044034 MON % 8.2 % 4 Unknown COMPLETE BLOOD COUNT 2647088 EOS % 2.0 % 4 Unknown COMPLETE BLOOD COUNT 3203646 BASO % 0.5 % 4 Unknown COMPLETE BLOOD COUNT 8159949 RDW 13.6 % 4 Unknown COMPLETE BLOOD COUNT 9696607 ABS PABLITO 3.28 10e9/L 014 Unknown COMPLETE BLOOD COUNT 8362330 ABS LYMPH 1.72 10e9/L 014 Unknown COMPLETE BLOOD COUNT 0947041 ABS MONO 0.46 10e9/L 014 Unknown COMPLETE BLOOD COUNT 1634521 ABS EOS 0.11 10e9/L 014 Unknown COMPLETE BLOOD COUNT 6586175 ABS BASO 0.03 10e9/L 014 Unknown COMPLETE BLOOD COUNT 0956044 RDW-SD 43.6 fL 4 Unknown FREE T4 51053 FREE T4 1.26 NG/DL 12/19/2013 Unknown COMPREHENSIVE METABOLIC 10276 AST 18 U/L 2013 Unknown COMPREHENSIVE METABOLIC 24401 ALT 22 IU/L 2013 Unknown COMPREHENSIVE METABOLIC 93330 BUN 11 MG/DL 2013 Unknown COMPREHENSIVE METABOLIC 87227 ALBUMIN 4.7 GM/DL 2013 Unknown COMPREHENSIVE METABOLIC 65720 CHLORIDE 108 MMOL/L 12/19 Unknown COMPREHENSIVE METABOLIC 03805 BILI TOT 0.3 MG/DL 2013 Unknown COMPREHENSIVE METABOLIC 67772 ALK PHOS 67 U/L 2013 Unknown COMPREHENSIVE METABOLIC 42614 SODIUM 141 MMOL/L 12/19 Unknown COMPREHENSIVE METABOLIC 63871 CREATININE 0.67 MG/DL 08/2013 Unknown COMPREHENSIVE METABOLIC 96336 CALCIUM 9.4 MG/DL 2013 Unknown COMPREHENSIVE METABOLIC 83760 POTASSIUM 4.1 MMOL/L 12/19 Unknown COMPREHENSIVE METABOLIC 90277 PROT TOT 7.0 GM/DL 2013 Unknown COMPREHENSIVE METABOLIC 28591 Glucose 94 MG/DL 2013 Unknown COMPREHENSIVE METABOLIC 32983 BICARB 27 MMOL/L 2013 Unknown COMPREHENSIVE METABOLIC 95258 ANION GAP 6 MEQ/L 2013 Unknown THYROID STIMULATING HORMONE 33297 TSH 0.547 uIU/ML 12/19/2013 Unknown GFR CALC 2683824 GFR AA >60 ML/MIN 02/03/2011 Unknown GFR CALC 2946990 GFR NON-AA >60 ML/MIN 02/03/2011 Unknown THYROID STIMULATING HORMONE 26661 TSH 0.818 uIU/ML 02/03/2011 Unknown COMPLETE BLOOD COUNT 52179 WBC 7.7 10e9/L 02/04/20 11 Unknown COMPLETE BLOOD COUNT 70487 RBC 4.23 10e12/L 2010 Unknown COMPLETE BLOOD COUNT 29416 HGB 11.9 g/dL 1 Unknown COMPLETE BLOOD COUNT 65748 HCT DET 36.5 % 1 Unknown COMPLETE BLOOD COUNT 71831 MCV 86.3 fL 1 Unknown COMPLETE BLOOD COUNT 72227 MCH 28.1 pg 1 Unknown COMPLETE BLOOD COUNT 36194 MCHC 32.6 g/dL 1 Unknown COMPLETE BLOOD COUNT 77622 PLT 244 10e9/L 02/04/20 11 Unknown COMPLETE BLOOD COUNT 31578 MPV 8.7 fL 1 Unknown COMPLETE BLOOD COUNT 82161 PABLITO % 58.9 % 1 Unknown COMPLETE BLOOD COUNT 65165 LY % 31.1 % 1 Unknown COMPLETE BLOOD COUNT 69521 MON % 7.9 % 1 Unknown COMPLETE BLOOD COUNT 42193 EOS % 1.8 % 1 Unknown COMPLETE BLOOD COUNT 74605 BASO % 0.3 % 1 Unknown COMPLETE BLOOD COUNT 42336 RDW 14.7 % 1 Unknown COMPLETE BLOOD COUNT 46815 ABS PABLITO 4.54 10e9/L 011 Unknown COMPLETE BLOOD COUNT 80162 ABS LYMPH 2.39 10e9/L 011 Unknown COMPLETE BLOOD COUNT 48878 ABS MONO 0.61 10e9/L 011 Unknown COMPLETE BLOOD COUNT 92463 ABS EOS 0.14 10e9/L 011 Unknown COMPLETE BLOOD COUNT 26228 ABS BASO 0.02 10e9/L 011 Unknown COMPLETE BLOOD COUNT 30122 RDW-SD 45.1 fL 1 Unknown COMPREHENSIVE METABOLIC 95833 AST 16 U/L 2010 Unknown COMPREHENSIVE METABOLIC 78954 ALT 21 IU/L 2010 Unknown COMPREHENSIVE METABOLIC 99872 BUN 9 MG/DL 2010 Unknown COMPREHENSIVE METABOLIC 79130 ALBUMIN 4.5 GM/DL 2010 Unknown COMPREHENSIVE METABOLIC 01775 CHLORIDE 104 MMOL/L 02/03 Unknown COMPREHENSIVE METABOLIC 23037 BILI TOT 0.2 MG/DL 2010 Unknown COMPREHENSIVE METABOLIC 85963 ALK PHOS 65 U/L 2010 Unknown COMPREHENSIVE METABOLIC 27342 SODIUM 137 MMOL/L 02/03 Unknown COMPREHENSIVE METABOLIC 92050 CREATININE 0.64 MG/DL 01/16 Unknown COMPREHENSIVE METABOLIC 31354 CALCIUM 8.8 MG/DL 2010 Unknown COMPREHENSIVE METABOLIC 08680 POTASSIUM 3.8 MMOL/L 02/03 Unknown COMPREHENSIVE METABOLIC 22944 PROT TOT 6.7 GM/DL 2010 Unknown COMPREHENSIVE METABOLIC 72657 Glucose 88 MG/DL 2010 Unknown COMPREHENSIVE METABOLIC 87558 BICARB 26 MMOL/L 2010 Unknown COMPREHENSIVE METABOLIC 88237 ANION GAP 7 MEQ/L 2010 Unknown FREE T4 48726 FREE T4 1.24 NG/DL 02/03/2011 Unknown Procedures Procedure Codes Date CEFTRIAXONE SODIUM INJECTION CPT-4: J0696 05/03/2019 THER/PROPH/DIAG INJ SC/IM CPT-4: 09747 05/03/2019 CEFTRIAXONE SODIUM INJECTION CPT-4: J0696 05/02/2019 THER/PROPH/DIAG INJ SC/IM CPT-4: 59166 05/02/2019 DEXAMETHASONE SODIUM PHOS CPT-4: J1100 10/19/2018 THER/PROPH/DIAG INJ SC/IM CPT-4: 03283 10/19/2018 URINE CULTURE/ COLONY COUNT CPT-4: 40763 10/19/2018 URINALYSIS NONAUTO W/O SCOPE CPT-4: 24516 10/19/2018 THROAT CULTURE CPT-4: 40452 07/29/2018 STREP A ASSAY W/OPTIC CPT-4: 55261 07/26/2018 SPECIMEN HANDLING OFFICE-LAB CPT-4: 48044 07/06/2018 OCCULT BLOOD FECES CPT-4: 23743 07/06/2018 ROUTINE VENIPUNCTURE CPT-4: 93522 12/19/2013 ASSAY OF FREE THYROXINE CPT-4: 91657 12/19/2013 ASSAY THYROID STIM HORMONE CPT-4: 37736 12/19/2013 COMPREHEN METABOLIC PANEL CPT-4: 80170 12/19/2013 COMPLETE CBC W/AUTO DIFF WBC CPT-4: 32292 12/19/2013 LIPID PANEL CPT-4: 21392 12/19/2013 OCCULT BLOOD FECES CPT-4: 58705 02/03/2011 SPECIMEN HANDLING OFFICE-LAB CPT-4: 37169 12/25/2009 OCCULT BLOOD FECES CPT-4: 84539 12/25/2009 Vital Signs Date Vital 05/03/2019 Blood [...] 1: 130/78 Code: 8480-6 BMI: 30.7 Code: 12318-1 Heart Rate 1: 76 bpm Height: 5'9" Respiratory Rate: 20 bpm Temperature: 36 .8 (C) / 98.3 (F) Weight: 208 lbs 06/30/2017 Blood Pressure 1: 126/80 Code: 8480-6 BMI: 30.9 Code: 68267-9 Heart Rate 1: 72 bpm Height: 5'9" Respiratory Rate: 20 bpm Temperature: 36 .7 (C) / 98.0 (F) Weight: 209 lbs 02/04/2016 Blood Pressure 1: 122/80 Code: 8480-6 BMI: 31.3 Code: 39824-6 Heart Rate 1: 80 bpm Height: 5'9" Respiratory Rate: 20 bpm Temperature: 36 .6 (C) / 97.8 (F) Weight: 212 lbs 12/19/2013 Blood Pressure 1: 116/78 Code: 8480-6 BMI: 30.1 Code: 73519-6 Heart Rate 1: 76 bpm Height: 5'9" Respiratory Rate: 20 bpm Temperature: 36 .8 (C) / 98.3 (F) Weight: 204 lbs 10/27/2012 Blood Pressure 1: 114/70 Code: 8480-6 BMI: 30.3 Code: 11812-5 Heart Rate 1: 68 bpm Height: 5'9" Respiratory Rate: 20 bpm Temperature: 36 .8 (C) / 98.3 (F) Weight: 205 lbs 09/01/2012 Blood Pressure 1: 118/82 Code: 8480-6 BMI: 30.9 Code: 91362-2 Heart Rate 1: 80 bpm Height: 5'9" Respiratory Rate: 20 bpm Temperature: 36 .8 (C) / 98.2 (F) Weight: 209 lbs 02/03/2011 Blood Pressure 1: 118/76 Code: 8480-6 BMI: 29.5 Code: 36661-4 Heart Rate 1: 72 bpm Height: 5'9" Weight: 200 lbs 12/25/2009 Blood Pressure 1: 122/76 Code: 8480-6 BMI: 29.5 Code: 85274-3 Heart Rate 1: 80 bpm Height: 5'9" [...] 11/24 Encounters Encounter Performer Location Codes Date ([id number]) OFFICE/OUTPATIENT VISIT EST Diagnosis: Cellulitis of right breast[ICD10: N61.0] Josesito [facility] CPT-4: 68451 05/03/2019 ([id number]) OFFICE/OUTPATIENT VISIT EST Diagnosis: Cellulitis of right breast[ICD10: N61.0] Josesito [facility] CPT-4: 20458 05/02/2019 ([id number]) OFFICE/OUTPATIENT VISIT EST Diagnosis: Edema, unspecified[ICD10: R60.9] Diagnosis: Adverse effect of unspecified drugs, medicaments and biological substances, initial encounter[ICD10: T50.905A] Diagnosis: Gross hematuria[ICD10: R31.0] [facility] CPT-4: 30082 10/19/2018 ([id number]) OFFICE/OUTPATIENT VISIT EST Diagnosis: URI, ACUTE[ICD10: J06.9] Josesito [facility] CPT-4: 42203 07/29/2018 ([id number]) OFFICE/OUTPATIENT VISIT EST Diagnosis: Acute pharyngitis, unspecified[ICD10: J02.9] Diagnosis: URI, ACUTE[ICD10: J06.9] Josesito [facility] CPT-4: 27022 07/26/2018 ([id number]) PREV VISIT EST AGE 40-64 Diagnosis: Encounter for general adult medical examination without abnormal findings[ICD10: Z00.00] Diagnosis: Encounter for gynecological examination (general) (routine) without abnormal findings[ICD10: Z01.419] Diagnosis: Menopausal and female climacteric states[ICD10: N95.1] Diagnosis: Other abnormal and inconclusive findings on diagnostic imaging of breast[ICD10: R92.8] Josesito [facility] CPT-4: 76308 07/06/2018 ([id number]) PREV VISIT EST AGE 40-64 Diagnosis: Encounter for general adult medical examination without abnormal findings[ICD10: Z00.00] Diagnosis: Encounter for gynecological examination (general) (routine) without abnormal findings[ICD10: Z01.419] [facility]oses[facility] CPT-4: 29617 06/30/2017 ([id number]) PREV VISIT EST AGE 40-64 Diagnosis: Encounter for general adult medical examination without abnormal findings[ICD10: Z00.00] Josesito [facility] CPT-4: 10497 02/04/2016 ([id number]) PREV VISIT EST AGE 40-64 Diagnosis: ROUTINE MEDICAL EXAM[ICD9: V70.0] Diagnosis: MENOPAUSAL DISORDER[ICD9: 627.9] Josesito [facility] CPT-4: 52689 12/19/2013 OFFICE/OUTPATIENT VISIT EST Diagnosis: MENOPAUSAL DISORDER[ICD9: 627.9] Josesito [facility] CPT-4: 82740 10/27/2012 ([id number]) PREV VISIT EST AGE 40-64 Diagnosis: ROUTINE MEDICAL EXAM[ICD9: V70.0] Diagnosis: MENOPAUSAL DISORDER[ICD9: 627.9] Josesito [facility] CPT-4: 98947 09/01/2012 PREV VISIT EST AGE 40-64 Diagnosis: ROUTINE GYNE EXAM[ICD9: V72.31] Diagnosis: ROUTINE MEDICAL EXAM[ICD9: V70.0] Josesito [facility] CPT-4: 85597 02/03/2011 SPECIMEN HANDLING Diagnosis: [ICD9: ] Diagnosis: [ICD9: ] Josesito [facility] CPT-4: 9900 0 02/03/2011 ([id number]) PREV VISIT, EST, AGE 40-64 Joses[facility] CPT-4: 38958 12/25/2009 Plan of Care Planned Activity Notes [...] N61.0 05/02/2019 Appointment: Josesito Del Rosario tel: [address] [place], [place] [phone] ACUTE ILLNESS 05/02/2019 Patient Education: clindamycin HCl- [employer] Coupon [id number] [email or web address] Completed 05/02/2019 Care Plan: TRANSVAGINAL US NON-OB LOINC : 08857-2 Pending 10/21/2018 Appointment: Josesito Del Rosario WPtel: [address] [place], [place] [phone] WT CHECK 10/20/2018 Visit Diagnosis Plan: Adverse [...] R60.9 10/19/2018 Appointment: Josesito Del Rosario WPtel: [address] [place], [place] [phone] 10/19/2018 Appointment: Josesito Del Rosario WPtel: [address] [place], [place] [phone] US Per CANCELED 08/02/2018 Visit Diagnosis Plan: URI, ACUTE Discussion: CXR negat johnna Lungs clear Only physical exam finding is injection on throat and mild fluid behind ears Will increase zyrtec to BID Throat Culture Notify surgeon of current course ICD-9 : 465.9 ICD-10 : J06.9 07/29/2018 Appointment: Josesito Del Rosario WPtel: [address] [place], [place] [phone] WORK IN 07/29/2018 Visit Diagnosis Plan: Acute pharyngitis, unspecified D iscussion: Strep Negative Cover with Zithromax with upcoming surgery next week but if worsens will let us know and will have to postpone surgery ICD-9 : 462 ICD-10 : J02.9 07/26/2018 Visit NOS Plan: Plan Notes: Supportive care. Rest, Fluids... 07/26/2018 Appointment: Josesito Del Rosario WPtel[facility] [id number] [facility] 07/26/2018 Visit Diagnosis Plan: Encounter [...] N95.1 07/06/2018 Appointment: Josesito Del Rosario WPtel: [facility] [id number] [facility] 07/06/2018 Care Plan: MAMMOGRAM BOTH BREASTS Diagnostic Mammogram of [place] Breast LOINC : 61105-4 Pending 06/24/2018 Care Plan: US EXAM CHEST [...] : Z01.419 06/30/2017 Appointment: Josesito Del Rosariotel: [address] [place], [place] [phone] [place] PAP 06/30/2017 Patient Education: Patient Medication Summary Completed 06/30/2017 Visit Plan: Update fasting lab Pap done Had mammogram Weight bearing exercise 02/04/2016 Appointment: Josesito Del Rosario WPtel: [address] [place] [address] US 01/30 confirmed~sl PAP 02/04/2016 Patient Education: Patient Medication Summary Completed 02/04/2016 Appointment: Josesito Del Rosario WPtel: [address] [place] [address] US RESCHEDULED 01/17/2016 Patient Education: Patient Medication Summary Completed 12/31/2015 Care Plan: MAMMOGRAM SCREENING LOINC : 2 6347-5 Pending 12/31/2015 Visit Plan: Try to decrease fluoxetine t o 10mg daily Check Mammo Check fasting lab Check Colonoscopy due to family hx of Colon Cancer 12/19/2013 Appointment: Josesito Del Rosario WPtel: [address] [place], [place] [id number] US 12/16 vm PAP 12/19/2013 Patient Education: Patient Medication Summary Completed 12/19/2013 Visit Plan: Long discussion about HRT--p t has Breast Ca on both sides--Discussed BRCA gene testing in Mom Will try higher dose of fluoxetine 10/27/2012 Appointment: Josesito Del Rosario WPtel: [address] [place], [place] [id number] [place] FOLLOW UP 10/27/2012 Patient Education: Patient Medication Summary Completed 10/27/2012 Visit Plan: Lab discussed Add fish oil 3 grams daily Long discussion about hormones Trial of fluoxetine 09/01/2012 Appointment: Josesito Del Rosario WPtel: [address] [place], [place] [id number] [place] PAP 09/01/2012 Patient Education: Patient Medication Summary Completed 09/01/2012 Visit Plan: Pap Done and Mammogram order ed Fasting lab ordered 02/03/2011 [facility]ment[facility] [phone] [id number] [place] [facility] 02/03/2011 Patient Education: Patient Medication Summary Completed 02/03/2011 Visit Plan: Pap done Mammo done last wee k Lab discussed Discussed Bioidentical Hormones 12/25/2009 App[facility]ment: [facility] [phone] [id number] [place] [facility] 12/25/2009 Patient Education: Patient Medication Summary Completed 12/25/2009 Instructions Comment . Update fasting lab Pap done Had mammogram Weight bearing exercise . Try to decrease fluoxetine to 10mg kobe ly Check Mammo Check fasting lab Check Colonoscopy due to family hx of Colon Cancer . Long discussion about HRT--pt has Lane st Ca on both sides--Discussed BRCA gene [...]
--- OUTSIDE RECORDS SUMMARY | 2019-05-15 23:44 | XMS REPORT | CCD ---
Author Author Caridad Del Rosario D.O. Organization [facility] Address [address] [place] [address] Phone Care Team Providers Care Supervisor Cook [employer] Name Role Phone PP Unavailable CCM Unavailable Summary Purpose Interface Exchange Insurance Providers Payer name Policy type / Coverage type Covered libertarian ID Effective Begin Date Effective End Date [facility] Commercial Insurance [id number] Un known Family History Family History data [...] Instructions clindamycin HCl 300 mg capsule RxNorm: 229243 1 Capsule (s) Oral three times a day 05/02/2019 05/09/2019 Active fluoxetine 20 mg tablet RxNorm: 409682 1 Tablet(s) Oral QD 03/29/20 19 09/24/2019 Active Zithromax Z-Khoi 250 mg tablet RxNorm: 136004 Tablet(s) Oral as directed 03/25/2019 03/25/2019 Inactive Zithromax Z-Khoi 250 mg tablet RxNorm: 376704 Tablet(s) Oral as directed 03/25/2019 03/24/2019 Inactive famotidine 20 mg tablet RxNorm: 737758 1 Tablet(s) PO BID 10/19/2018 02/15/2019 Inactive Tessalon Perles 100 mg capsule RxNorm: 457955 1 Capsule (s) PO TID as needed for cough 07/26/2018 10/18/2018 Inactive Zithromax 500 mg tablet RxNorm: 341508 1 Tablet(s) PO QD 07/26/2018 0 07/25/2018 Inactive Zithromax 500 mg tablet RxNorm: 813227 1 Tablet(s) PO QD 07/26/2018 0 07/30/2018 Inactive Xanax 0.25 mg tablet RxNorm: 159360 1/2-1 Tablet(s) PO BID 06/01/19 19 No Stop Date Active fluoxetine 20 mg tablet RxNorm: 735442 1 Tablet(s) PO Q D Due for annual appointment in 06/01/2018 02/25/2019 Inactive fluoxetine 20 mg tablet RxNorm: 458932 1 Tablet(s) PO Q D Due for annual in [facility] 06/01/2018 02/25/2019 Inactive fluoxetine 20 mg tablet RxNorm: 185518 1 Tablet(s) PO QD 08/05/2017 1 07/02/2017 Inactive fluoxetine 20 mg tablet RxNorm: 575841 1 Tablet(s) PO QD 08/04/2017 0 08/04/2017 Inactive Xanax 0.25 mg tablet RxNorm: 406718 1/2-1 Tablet(s) PO BID 07/02/19 18 05/31/2018 Inactive fluoxetine 10 mg capsule RxNorm: 063006 2 Capsule(s) PO QAM 018 07/05/2018 Inactive Generic For:PROZAC 10 MG PUL VULE 09/24/2015 10:15:02 AM N O T I C E Last quantity doesn't match original quantity fluoxetine 10 mg capsule RxNorm: 504700 2 Capsule(s) PO QAM Routine wellness due after 02-04-17 12/03/2016 03/02/2017 Inactive Generic For:PROZ AC 10 MG PULVULE 09/24/2015 10:15:02 AM N O T I C E Last quantity doesn't match original quantity Xanax 0.25 mg tablet RxNorm: 101858 1/2-1 Tablet(s) PO BID 02/05/20 16 07/01/2017 Inactive fluoxetine 10 mg capsule RxNorm: 572715 2 Capsule(s) PO QAM 016 07/25/2018 Inactive fluoxetine 10 mg capsule RxNorm: 642200 2 Capsule(s) PO QAM 016 12/03/2016 Inactive Generic For:PROZAC 10 MG PUL VULE 09/24/2015 10:15:02 AM N O T I C E Last quantity doesn't match original quantity fluoxetine 10 mg capsule RxNorm: 475013 2 Capsule(s) PO QAM TAKE 2 CAPSULES BY MOUTH EVERY MORNING 11/16/2015 02/03/2016 Inactive Generic For: PROZAC 10 MG PULVULE 09/24/2015 10:15:02 AM N O T I C E Last quantity doesn't match original quantity fluoxetine 10 mg capsule RxNorm: 851468 2 Capsule(s) PO QAM TAKE 2 CAPSULES BY MOUTH EVERY MORNING 09/24/2015 11/15/2015 Inactive Generic For: PROZAC 10 MG PULVULE 09/24/2015 10:15:02 AM N O T I C E Last quantity doesn't match original quantity fluoxetine 10 mg capsule RxNorm: 062605 2 Capsule(s) PO QAM 015 09/24/2015 Inactive fluoxetine 10 mg capsule RxNorm: 151691 2 Capsule(s) PO QAM 015 07/28/2018 Inactive fluoxetine 10 mg capsule RxNorm: 393907 2 Capsule(s) PO QAM 014 05/21/2014 Inactive Xanax 0.25 mg tablet RxNorm: 704436 1/2-1 Tablet(s) PO BID 04/21/20 13 No Stop Date Active fluoxetine 10 mg capsule RxNorm: 789910 2 Capsule(s) PO QAM 013 01/24/2013 Inactive fluoxetine 10 mg capsule RxNorm: 918441 1 Capsule(s) PO QAM 013 10/26/2012 Inactive Multivitamin & Mineral Formula Tab RxNorm: 1 Tablet(s) PO QD No St art Date Active Zyrtec 10 mg tablet RxNorm: 8468384 1 Tablet(s) PO BID No Start Date Active Prilosec OTC 20 mg tablet,delayed release RxNorm: 705137 1 Tabl et(s) PO QD No Start Date Active Tessalon Perles 100 mg capsule RxNorm: 911604 1 Capsule (s) PO TID as needed for cough No Start Date 07/25/2018 Inactive Biotin Oral RxNorm: Oral No Start Date 10/18/2018 Inactive Zithromax Z-Khoi oral RxNorm: 46053 oral No Start Date 03/24/2019 Inactive Echinacea ACZ oral RxNorm: oral No Start Date 07/28/2018 Inacti ve Vitamin D3 1000 units Capsule RxNorm: 1 Capsule(s) PO QD No St art Date 07/28/2018 Inactive Black Cohosh Oral RxNorm: Oral No Start Date 07/28/2018 Inactiv e Xanax 0.25 mg tablet RxNorm: 123391 1/2-1 Tablet(s) PO BID No Start Date 04/20/2013 Inactive Zyrtec 10 mg tablet RxNorm: 3787957 1 Tablet(s) PO QD as needed No Start Date 10/18/2018 Inactive Vitamin C 1,000 mg tablet RxNorm: 676690 1 Tablet(s) PO QD No Start Date 10/18/2018 Inactive fluoxetine 20 mg tablet RxNorm: 610226 1 Tablet(s) PO QD No Start D ate 08/03/2017 Inactive Medication Administered No Medication Administered data Immunizations Vaccine Codes Date Status Influenza CVX: 141 04/08/2019 Influenza CVX: 141 04/26/2018 Results Observation Observation Code Item Item Code Result Date S ervice Location CULTURE, URINE, ROUTINE 395 CULTURE, URINE, ROUTINE 10/20/2018 [facility] [address] [place] [address] GFR CALC [id number] GFR Non Afr Amr >60 mL/min 07/05/2018 Un known GFR CALC [id number] GFR Afr Amr >60 mL/min 07/05/2018 Unknow n FREE T4 94711 T4 Free 0.94 ng/dL 07/05/2018 Unknown [facility] 28105 Cholesterol 165 mg/dL 07/05/2018 Unkno wn [facility] 29209 Triglyceride 108 mg/dL 07/05/2018 Unkn own [facility] 23326 HDL CHOLESTEROL 50 mg/dL 07/05/2018 U nknown [facility] 42182 Chol/HDL Ratio 3.30 ratio 07/05/2018 U nknown [facility] 70777 NON-HDL Chol 115 mg/dL 07/05/2018 Unkn own [facility] 26353 LDL Cholesterol 93 mg/dL 07/05/2018 U nknown THYROID STIMULATING HORMONE 57314 TSH 0.937 uIU/mL 07/05/2018 Unknown COMPREHENSIVE METABOLIC 30207 AST 19 U/L 2018 Unknown COMPREHENSIVE METABOLIC 84474 ALT 21 U/L 2018 Unknown COMPREHENSIVE METABOLIC 68278 BUN 10 mg/dL 2018 Unknown COMPREHENSIVE METABOLIC 71365 ALBUMIN 4.3 g/dL 2018 Unknown COMPREHENSIVE METABOLIC 56013 CHLORIDE 106 mmol/L 07/05 Unknown COMPREHENSIVE METABOLIC 37798 Bili Total 0.3 mg/dL 07/05 Unknown COMPREHENSIVE METABOLIC 25390 ALK PHOS 59 U/L 2018 Unknown COMPREHENSIVE METABOLIC 63022 SODIUM 140 mmol/L 07/05 Unknown COMPREHENSIVE METABOLIC 20715 CREATININE 0.68 mg/dL 06/18 Unknown COMPREHENSIVE METABOLIC 86773 CALCIUM 9.2 mg/dL 2018 Unknown COMPREHENSIVE METABOLIC 75802 POTASSIUM 4.0 mmol/L 07/05 Unknown COMPREHENSIVE METABOLIC 99992 Total Protein 7.1 g/dL Unknown COMPREHENSIVE METABOLIC 42548 Glucose 84 mg/dL 2018 Unknown COMPREHENSIVE METABOLIC 92959 Bicarbonate 27 mmol/L 06/18 Unknown COMPREHENSIVE METABOLIC 99262 AGAP 7 mmol/L 2018 Unknown COMPLETE BLOOD COUNT 4287236 WBC 6.0 10e9/L 07/05/19 19 Unknown COMPLETE BLOOD COUNT 8141699 RBC 4.36 10e12/L 2018 Unknown COMPLETE BLOOD COUNT 9816547 HEMOGLOBIN 12.9 g/dL 07/05/19 19 Unknown COMPLETE BLOOD COUNT 8383180 HEMATOCRIT 39.1 % 07/05/19 19 Unknown COMPLETE BLOOD COUNT 9774977 MCV 89.7 fL 9 Unknown COMPLETE BLOOD COUNT 8561155 MCH 29.6 pg 9 Unknown COMPLETE BLOOD COUNT 4534808 MCHC 33.0 g/dL 9 Unknown COMPLETE BLOOD COUNT 1718842 PLATELET COUNT 270 10e9/L Unknown COMPLETE BLOOD COUNT 3034686 Mean Plt Volume 9.0 fL Unknown COMPLETE BLOOD COUNT 8243428 Neut Auto 53.8 % 9 Unknown COMPLETE BLOOD COUNT [id number] Lymph Auto 35.8 % 07/05/19 19 Unknown COMPLETE BLOOD COUNT [id number] [place] Auto 7.9 % 9 Unknown COMPLETE BLOOD COUNT 1189933 RDW 13.9 % 9 Unknown COMPLETE BLOOD COUNT 4035502 Eos Auto 2.0 % 9 Unknown COMPLETE BLOOD COUNT 7743580 Baso Auto 0.5 % 9 Unknown COMPLETE BLOOD COUNT 3499658 Neutrophil Abs 3.23 10e9/L Unknown COMPLETE BLOOD COUNT 0845226 Lymphocyte Abs 2.15 10e9/L Unknown COMPLETE BLOOD COUNT 3999979 Monocyte Abs 0.47 10e9/L 06/18 Unknown COMPLETE BLOOD COUNT [id number] Eosinophil Abs 0.12 10e9/L Unknown COMPLETE BLOOD COUNT 3940384 RDW-SD 44.5 fL 9 Unknown COMPLETE BLOOD COUNT 1498695 Basophil Abs 0.03 10e9/L 06/18 Unknown FREE T4 78980 T4 Free 1.21 ng/dL 06/30/2017 Unknown GFR CALC 9614784 GFR Non Afr Amr >60 mL/min 06/30/2017 Un known GFR CALC 7737347 GFR Afr Amr >60 mL/min 06/30/2017 Unknow n THYROID STIMULATING HORMONE 59109 TSH 0.873 uIU/mL 06/30/2017 Unknown [facility] 40973 Cholesterol 175 mg/dL 06/30/2017 Unkno wn [facility] 22331 Triglyceride 129 mg/dL 06/30/2017 Unkn own [facility] 78395 HDL CHOLESTEROL 51 06/30/2017 U nknown [facility] 82716 Chol/HDL Ratio 3.43 ratio 06/30/2017 U nknown [facility] 85911 NON-HDL Chol 124 mg/dL 06/30/2017 Unkn own [facility] 07239 LDL Cholesterol 98 mg/dL 06/30/2017 U nknown COMPLETE BLOOD COUNT 5141261 WBC 6.2 10e9/L 06/30/19 18 Unknown COMPLETE BLOOD COUNT 0050774 RBC 4.58 10e12/L 2017 Unknown COMPLETE BLOOD COUNT 1261407 HEMOGLOBIN 13.3 g/dL 06/30/19 18 Unknown COMPLETE BLOOD COUNT 7844716 HEMATOCRIT 41.6 % 06/30/19 18 Unknown COMPLETE BLOOD COUNT 3806755 MCV 90.8 fL 8 Unknown COMPLETE BLOOD COUNT 2582532 MCH 29.0 pg 8 Unknown COMPLETE BLOOD COUNT 3320056 MCHC 32.0 g/dL 8 Unknown COMPLETE BLOOD COUNT 8751422 PLATELET COUNT 271 10e9/L Unknown COMPLETE BLOOD COUNT 8181107 Mean Plt Volume 8.9 fL Unknown COMPLETE BLOOD COUNT 1296688 Neut Auto 53.5 % 8 Unknown COMPLETE BLOOD COUNT 3749542 Lymph Auto 36.4 % 06/30/19 18 Unknown COMPLETE BLOOD COUNT 9141404 [place] Auto 8.1 % 8 Unknown COMPLETE BLOOD COUNT 3226395 RDW 13.4 % 8 Unknown COMPLETE BLOOD COUNT 6274316 Eos Auto 1.5 % 8 Unknown COMPLETE BLOOD COUNT 4837631 Baso Auto 0.5 % 8 Unknown COMPLETE BLOOD COUNT 3121326 Neutrophil Abs 3.32 10e9/L Unknown COMPLETE BLOOD COUNT 0180075 Lymphocyte Abs 2.26 10e9/L Unknown COMPLETE BLOOD COUNT 7467306 Monocyte Abs 0.50 10e9/L 06/18 Unknown COMPLETE BLOOD COUNT 4235399 Eosinophil Abs 0.09 10e9/L Unknown COMPLETE BLOOD COUNT 7151576 RDW-SD 43.9 fL 8 Unknown COMPLETE BLOOD COUNT 3853033 Basophil Abs 0.03 10e9/L 06/18 Unknown COMPREHENSIVE METABOLIC 35801 AST 19 U/L 2017 Unknown COMPREHENSIVE METABOLIC 97111 ALT 22 U/L 2017 Unknown COMPREHENSIVE METABOLIC 46123 BUN 12 mg/dL 2017 Unknown COMPREHENSIVE METABOLIC 98960 ALBUMIN 4.9 g/dL 2017 Unknown COMPREHENSIVE METABOLIC 03224 CHLORIDE 106 mmol/L 06/30 Unknown COMPREHENSIVE METABOLIC 05450 Bili Total 0.4 mg/dL 06/30 Unknown COMPREHENSIVE METABOLIC 17402 ALK PHOS 66 U/L 2017 Unknown COMPREHENSIVE METABOLIC 63902 SODIUM 143 mmol/L 06/30 Unknown COMPREHENSIVE METABOLIC 43057 CREATININE 0.71 mg/dL 06/18 Unknown COMPREHENSIVE METABOLIC 73448 CALCIUM 9.9 mg/dL 2017 Unknown COMPREHENSIVE METABOLIC 71635 POTASSIUM 4.1 mmol/L 06/30 Unknown COMPREHENSIVE METABOLIC 46877 Total Protein 8.0 g/dL Unknown COMPREHENSIVE METABOLIC 35579 Glucose 87 mg/dL 2017 Unknown COMPREHENSIVE METABOLIC 55433 Bicarbonate 27 mmol/L 06/18 Unknown COMPREHENSIVE METABOLIC 79118 AGAP 10 mmol/L 2017 Unknown GFR CALC 4136592 GFR AA >60 ML/MIN 12/19/2013 Unknown GFR CALC 9255644 GFR NON-AA >60 ML/MIN 12/19/2013 Unknown L[facility] GROUP 14441 HDL TEST 52 MG/DL 12/19/2013 Unknown [facility] 12741 TRIG 96 MG/DL 12/19/2013 Unknown [facility] 23640 TEST LDL 98 MG/DL 12/19/2013 Unknown L[facility] GROUP 76524 CHOL 169 MG/DL 12/19/2013 Unknown [facility] GROUP 68860 RCHOL/HDL 3.25 RATIO 12/19/2013 Unknow n LIP[facility] GROUP 98874 NON-HDL CH 117 MG/DL 12/19/2013 Unknow n COMPLETE BLOOD COUNT 3731432 WBC 5.6 10e9/L 12/20/19 14 Unknown COMPLETE BLOOD COUNT 3164635 RBC 4.45 10e12/L 2013 Unknown COMPLETE BLOOD COUNT 4010219 HGB 13.0 g/dL 4 Unknown COMPLETE BLOOD COUNT 2960492 HCT DET 39.9 % 4 Unknown COMPLETE BLOOD COUNT 2441810 MCV 89.7 fL 4 Unknown COMPLETE BLOOD COUNT 5747844 MCH 29.2 pg 4 Unknown COMPLETE BLOOD COUNT 9246905 MCHC 32.6 g/dL 4 Unknown COMPLETE BLOOD COUNT 0937753 PLT 244 10e9/L 12/20/19 14 Unknown COMPLETE BLOOD COUNT 6160355 MPV 9.4 fL 4 Unknown COMPLETE BLOOD COUNT 7102575 PABLITO % 58.5 % 4 Unknown COMPLETE BLOOD COUNT 2425174 LY % 30.8 % 4 Unknown COMPLETE BLOOD COUNT 3994866 MON % 8.2 % 4 Unknown COMPLETE BLOOD COUNT 4765065 EOS % 2.0 % 4 Unknown COMPLETE BLOOD COUNT 0004518 BASO % 0.5 % 4 Unknown COMPLETE BLOOD COUNT 5802169 RDW 13.6 % 4 Unknown COMPLETE BLOOD COUNT 1295666 ABS PABLITO 3.28 10e9/L 014 Unknown COMPLETE BLOOD COUNT 3012612 ABS LYMPH 1.72 10e9/L 014 Unknown COMPLETE BLOOD COUNT 2270910 ABS MONO 0.46 10e9/L 014 Unknown COMPLETE BLOOD COUNT 1635023 ABS EOS 0.11 10e9/L 014 Unknown COMPLETE BLOOD COUNT 1484000 ABS BASO 0.03 10e9/L 014 Unknown COMPLETE BLOOD COUNT 5626425 RDW-SD 43.6 fL 4 Unknown FREE T4 91237 FREE T4 1.26 NG/DL 12/19/2013 Unknown COMPREHENSIVE METABOLIC 83373 AST 18 U/L 2013 Unknown COMPREHENSIVE METABOLIC 28629 ALT 22 IU/L 2013 Unknown COMPREHENSIVE METABOLIC 90449 BUN 11 MG/DL 2013 Unknown COMPREHENSIVE METABOLIC 40765 ALBUMIN 4.7 GM/DL 2013 Unknown COMPREHENSIVE METABOLIC 59197 CHLORIDE 108 MMOL/L 12/19 Unknown COMPREHENSIVE METABOLIC 76883 BILI TOT 0.3 MG/DL 2013 Unknown COMPREHENSIVE METABOLIC 82971 ALK PHOS 67 U/L 2013 Unknown COMPREHENSIVE METABOLIC 31658 SODIUM 141 MMOL/L 12/19 Unknown COMPREHENSIVE METABOLIC 40005 CREATININE 0.67 MG/DL 08/2013 Unknown COMPREHENSIVE METABOLIC 77387 CALCIUM 9.4 MG/DL 2013 Unknown COMPREHENSIVE METABOLIC 14264 POTASSIUM 4.1 MMOL/L 12/19 Unknown COMPREHENSIVE METABOLIC 71172 PROT TOT 7.0 GM/DL 2013 Unknown COMPREHENSIVE METABOLIC 85200 Glucose 94 MG/DL 2013 Unknown COMPREHENSIVE METABOLIC 81132 BICARB 27 MMOL/L 2013 Unknown COMPREHENSIVE METABOLIC 44350 ANION GAP 6 MEQ/L 2013 Unknown THYROID STIMULATING HORMONE 92402 TSH 0.547 uIU/ML 12/19/2013 Unknown GFR CALC 7066655 GFR AA >60 ML/MIN 02/03/2011 Unknown GFR CALC 3301459 GFR NON-AA >60 ML/MIN 02/03/2011 Unknown THYROID STIMULATING HORMONE 17516 TSH 0.818 uIU/ML 02/03/2011 Unknown COMPLETE BLOOD COUNT 67014 WBC 7.7 10e9/L 02/04/20 11 Unknown COMPLETE BLOOD COUNT 71107 RBC 4.23 10e12/L 2010 Unknown COMPLETE BLOOD COUNT 94141 HGB 11.9 g/dL 1 Unknown COMPLETE BLOOD COUNT 76054 HCT DET 36.5 % 1 Unknown COMPLETE BLOOD COUNT 78738 MCV 86.3 fL 1 Unknown COMPLETE BLOOD COUNT 82283 MCH 28.1 pg 1 Unknown COMPLETE BLOOD COUNT 15788 MCHC 32.6 g/dL 1 Unknown COMPLETE BLOOD COUNT 30167 PLT 244 10e9/L 02/04/20 11 Unknown COMPLETE BLOOD COUNT 88271 MPV 8.7 fL 1 Unknown COMPLETE BLOOD COUNT 71978 PABLITO % 58.9 % 1 Unknown COMPLETE BLOOD COUNT 52720 LY % 31.1 % 1 Unknown COMPLETE BLOOD COUNT 80841 MON % 7.9 % 1 Unknown COMPLETE BLOOD COUNT 17214 EOS % 1.8 % 1 Unknown COMPLETE BLOOD COUNT 53217 BASO % 0.3 % 1 Unknown COMPLETE BLOOD COUNT 05493 RDW 14.7 % 1 Unknown COMPLETE BLOOD COUNT 02512 ABS PABLITO 4.54 10e9/L 011 Unknown COMPLETE BLOOD COUNT 57379 ABS LYMPH 2.39 10e9/L 011 Unknown COMPLETE BLOOD COUNT 81071 ABS MONO 0.61 10e9/L 011 Unknown COMPLETE BLOOD COUNT 98684 ABS EOS 0.14 10e9/L 011 Unknown COMPLETE BLOOD COUNT 41074 ABS BASO 0.02 10e9/L 011 Unknown COMPLETE BLOOD COUNT 26155 RDW-SD 45.1 fL 1 Unknown COMPREHENSIVE METABOLIC 79155 AST 16 U/L 2010 Unknown COMPREHENSIVE METABOLIC 66989 ALT 21 IU/L 2010 Unknown COMPREHENSIVE METABOLIC 65146 BUN 9 MG/DL 2010 Unknown COMPREHENSIVE METABOLIC 33883 ALBUMIN 4.5 GM/DL 2010 Unknown COMPREHENSIVE METABOLIC 03202 CHLORIDE 104 MMOL/L 02/03 Unknown COMPREHENSIVE METABOLIC 38666 BILI TOT 0.2 MG/DL 2010 Unknown COMPREHENSIVE METABOLIC 00158 ALK PHOS 65 U/L 2010 Unknown COMPREHENSIVE METABOLIC 05277 SODIUM 137 MMOL/L 02/03 Unknown COMPREHENSIVE METABOLIC 20597 CREATININE 0.64 MG/DL 01/16 Unknown COMPREHENSIVE METABOLIC 58729 CALCIUM 8.8 MG/DL 2010 Unknown COMPREHENSIVE METABOLIC 99405 POTASSIUM 3.8 MMOL/L 02/03 Unknown COMPREHENSIVE METABOLIC 01520 PROT TOT 6.7 GM/DL 2010 Unknown COMPREHENSIVE METABOLIC 97423 Glucose 88 MG/DL 2010 Unknown COMPREHENSIVE METABOLIC 86990 BICARB 26 MMOL/L 2010 Unknown COMPREHENSIVE METABOLIC 79504 ANION GAP 7 MEQ/L 2010 Unknown FREE T4 33318 FREE T4 1.24 NG/DL 02/03/2011 Unknown Procedures Procedure Codes Date CEFTRIAXONE SODIUM INJECTION CPT-4: J0696 05/03/2019 THER/PROPH/DIAG INJ SC/IM CPT-4: 01401 05/03/2019 CEFTRIAXONE SODIUM INJECTION CPT-4: J0696 05/02/2019 THER/PROPH/DIAG INJ SC/IM CPT-4: 11237 05/02/2019 DEXAMETHASONE SODIUM PHOS CPT-4: J1100 10/19/2018 THER/PROPH/DIAG INJ SC/IM CPT-4: 15207 10/19/2018 URINE CULTURE/ COLONY COUNT CPT-4: 34941 10/19/2018 URINALYSIS NONAUTO W/O SCOPE CPT-4: 84582 10/19/2018 THROAT CULTURE CPT-4: 35286 07/29/2018 STREP A ASSAY W/OPTIC CPT-4: 09519 07/26/2018 SPECIMEN HANDLING OFFICE-LAB CPT-4: 96390 07/06/2018 OCCULT BLOOD FECES CPT-4: 70722 07/06/2018 ROUTINE VENIPUNCTURE CPT-4: 62110 12/19/2013 ASSAY OF FREE THYROXINE CPT-4: 71183 12/19/2013 ASSAY THYROID STIM HORMONE CPT-4: 58810 12/19/2013 COMPREHEN METABOLIC PANEL CPT-4: 87092 12/19/2013 COMPLETE CBC W/AUTO DIFF WBC CPT-4: 61850 12/19/2013 LIPID PANEL CPT-4: 03726 12/19/2013 OCCULT BLOOD FECES CPT-4: 63199 02/03/2011 SPECIMEN HANDLING OFFICE-LAB CPT-4: 58963 12/25/2009 OCCULT BLOOD FECES CPT-4: 75633 12/25/2009 Vital Signs Date Vital 05/03/2019 Blood [...] 1: 130/78 Code: 8480-6 BMI: 30.7 Code: 28767-6 Heart Rate 1: 76 bpm Height: 5'9" Respiratory Rate: 20 bpm Temperature: 36 .8 (C) / 98.3 (F) Weight: 208 lbs 06/30/2017 Blood Pressure 1: 126/80 Code: 8480-6 BMI: 30.9 Code: 71039-9 Heart Rate 1: 72 bpm Height: 5'9" Respiratory Rate: 20 bpm Temperature: 36 .7 (C) / 98.0 (F) Weight: 209 lbs 02/04/2016 Blood Pressure 1: 122/80 Code: 8480-6 BMI: 31.3 Code: 25873-1 Heart Rate 1: 80 bpm Height: 5'9" Respiratory Rate: 20 bpm Temperature: 36 .6 (C) / 97.8 (F) Weight: 212 lbs 12/19/2013 Blood Pressure 1: 116/78 Code: 8480-6 BMI: 30.1 Code: 93973-7 Heart Rate 1: 76 bpm Height: 5'9" Respiratory Rate: 20 bpm Temperature: 36 .8 (C) / 98.3 (F) Weight: 204 lbs 10/27/2012 Blood Pressure 1: 114/70 Code: 8480-6 BMI: 30.3 Code: 80862-5 Heart Rate 1: 68 bpm Height: 5'9" Respiratory Rate: 20 bpm Temperature: 36 .8 (C) / 98.3 (F) Weight: 205 lbs 09/01/2012 Blood Pressure 1: 118/82 Code: 8480-6 BMI: 30.9 Code: 41772-0 Heart Rate 1: 80 bpm Height: 5'9" Respiratory Rate: 20 bpm Temperature: 36 .8 (C) / 98.2 (F) Weight: 209 lbs 02/03/2011 Blood Pressure 1: 118/76 Code: 8480-6 BMI: 29.5 Code: 58674-5 Heart Rate 1: 72 bpm Height: 5'9" Weight: 200 lbs 12/25/2009 Blood Pressure 1: 122/76 Code: 8480-6 BMI: 29.5 Code: 00264-0 Heart Rate 1: 80 bpm Height: 5'9" [...] 11/24 Encounters Encounter Performer Location Codes Date ([id number]) OFFICE/OUTPATIENT VISIT EST Diagnosis: Cellulitis of right breast[ICD10: N61.0] J[facility]ito [facility] CPT-4: 80951 05/03/2019 ([id number]) OFFICE/OUTPATIENT VISIT EST Diagnosis: Cellulitis of right breast[ICD10: N61.0] Josesito [facility] CPT-4: 28795 05/02/2019 ([id number]) OFFICE/OUTPATIENT VISIT EST Diagnosis: Edema, unspecified[ICD10: R60.9] Diagnosis: Adverse effect of unspecified drugs, medicaments and biological substances, initial encounter[ICD10: T50.905A] Diagnosis: Gross hematuria[ICD10: R31.0] [facility] CPT-4: 36622 10/19/2018 ([id number]) OFFICE/OUTPATIENT VISIT EST Diagnosis: URI, ACUTE[ICD10: J06.9] [facility] CPT-4: 80675 07/29/2018 ([id number]) OFFICE/OUTPATIENT VISIT EST Diagnosis: Acute pharyngitis, unspecified[ICD10: J02.9] Diagnosis: URI, ACUTE[ICD10: J06.9] [facility] CPT-4: 22180 07/26/2018 ([id number]) PREV VISIT EST AGE 40-64 Diagnosis: Encounter for general adult medical examination without abnormal findings[ICD10: Z00.00] Diagnosis: Encounter for gynecological examination (general) (routine) without abnormal findings[ICD10: Z01.419] Diagnosis: Menopausal and female climacteric states[ICD10: N95.1] Diagnosis: Other abnormal and inconclusive findings on diagnostic imaging of breast[ICD10: R92.8] Josesito [facility] CPT-4: 52238 07/06/2018 ([id number]) PREV VISIT EST AGE 40-64 Diagnosis: Encounter for general adult medical examination without abnormal findings[ICD10: Z00.00] Diagnosis: Encounter for gynecological examination (general) (routine) without abnormal findings[ICD10: Z01.419] [facility] CPT-4: 35751 06/30/2017 ([id number]) PREV VISIT EST AGE 40-64 Diagnosis: Encounter for general adult medical examination without abnormal findings[ICD10: Z00.00] Josesito [facility] CPT-4: 22953 02/04/2016 ([id number]) PREV VISIT EST AGE 40-64 Diagnosis: ROUTINE MEDICAL EXAM[ICD9: V70.0] Diagnosis: MENOPAUSAL DISORDER[ICD9: 627.9] Josesito [facility] CPT-4: 74997 12/19/2013 OFFICE/OUTPATIENT VISIT EST Diagnosis: MENOPAUSAL DISORDER[ICD9: 627.9] Josesito [facility] CPT-4: 86533 10/27/2012 ([id number]) PREV VISIT EST AGE 40-64 Diagnosis: ROUTINE MEDICAL EXAM[ICD9: V70.0] Diagnosis: MENOPAUSAL DISORDER[ICD9: 627.9] Josesito [facility] CPT-4: 87691 09/01/2012 PREV VISIT EST AGE 40-64 Diagnosis: ROUTINE GYNE EXAM[ICD9: V72.31] Diagnosis: ROUTINE MEDICAL EXAM[ICD9: V70.0] Josesito [facility] CPT-4: 22022 02/03/2011 SPECIMEN HANDLING Diagnosis: [ICD9: ] Diagnosis: [ICD9: ] Josesito [facility] CPT-4: 9900 0 02/03/2011 ([id number]) PREV VISIT, EST, AGE 40-64 [facility] CPT-4: 85764 12/25/2009 Plan of Care Planned Activity Notes [...] N61.0 05/02/2019 Appointment: Josesito Del Rosario tel: [address] [place], [place] [phone] ACUTE ILLNESS 05/02/2019 Patient Education: clindamycin HCl- [employer] Coupon [id number] [email or web address] Completed 05/02/2019 Care Plan: TRANSVAGINAL US NON-OB LOINC : 07011-1 Pending 10/21/2018 Appointment: Josesito Del Rosario WPtel: [address] [place], [place] [phone] WT CHECK 10/20/2018 Visit Diagnosis Plan: Adverse [...] R60.9 10/19/2018 Appointment: Josesito Del Rosario WPtel: [address] [place], [place] [phone] 10/19/2018 Appointment: Josesito Del Rosario WPtel: [address] [place], [place] [phone] US Per CANCELED 08/02/2018 Visit Diagnosis Plan: URI, ACUTE Discussion: CXR negat johnna Lungs clear Only physical exam finding is injection on throat and mild fluid behind ears Will increase zyrtec to BID Throat Culture Notify surgeon of current course ICD-9 : 465.9 ICD-10 : J06.9 07/29/2018 Appointment: Josesito Del Rosario WPtel: [address] [place], [place] [phone] WORK IN 07/29/2018 Visit Diagnosis Plan: Acute pharyngitis, unspecified D iscussion: Strep Negative Cover with Zithromax with upcoming surgery next week but if worsens will let us know and will have to postpone surgery ICD-9 : 462 ICD-10 : J02.9 07/26/2018 Visit NOS Plan: Plan Notes: Supportive care. Rest, Fluids... 07/26/2018 Appointment: Josesito Del Rosario WPtel: [facility] [id number] [facility] ILL[facility] 07/26/2018 Visit Diagnosis Plan: Encounter [...] N95.1 07/06/2018 Appointment: Josesito Del Rosario WPtel: [facility] [id number] PAP 07/06/2018 Care Plan: MAMMOGRAM BOTH BREASTS Diagnostic Mammogram of [place] Breast LOINC : 78599-6 Pending 06/24/2018 Care Plan: US EXAM CHEST [...] : Z01.419 06/30/2017 Appointment: Josesito Del Rosariotel: [address] [place], [place] [phone] [place] PAP 06/30/2017 Patient Education: Patient Medication Summary Completed 06/30/2017 Visit Plan: Update fasting lab Pap done Had mammogram Weight bearing exercise 02/04/2016 Appointment: Josesito Del Rosario WPtel: [address] [place] [address] US 01/30 confirmed~sl PAP 02/04/2016 Patient Education: Patient Medication Summary Completed 02/04/2016 Appointment: Josesito Del Rosario WPtel: [address] [place] [address] US RESCHEDULED 01/17/2016 Patient Education: Patient Medication Summary Completed 12/31/2015 Care Plan: MAMMOGRAM SCREENING LOINC : 2 6347-5 Pending 12/31/2015 Visit Plan: Try to decrease fluoxetine t o 10mg daily Check Mammo Check fasting lab Check Colonoscopy due to family hx of Colon Cancer 12/19/2013 Appointment: Josesito Del Rosario WPtel: [address] [place], [place] [phone] [place] 12/16 vm PAP 12/19/2013 Patient Education: Patient Medication Summary Completed 12/19/2013 Visit Plan: Long discussion about HRT--p t has Breast Ca on both sides--Discussed BRCA gene testing in Mom Will try higher dose of fluoxetine 10/27/2012 Appointment: Josesito Del Rosario WPtel: [address] [place], [place] [id number] US FOLLOW UP 10/27/2012 Patient Education: Patient Medication Summary Completed 10/27/2012 Visit Plan: Lab discussed Add fish oil 3 grams daily Long discussion about hormones Trial of fluoxetine 09/01/2012 Appointment: Josesito Del Rosario WPtel: [address] [place], [place] [id number] [place] PAP 09/01/2012 Patient Education: Patient Medication Summary Completed 09/01/2012 Visit Plan: Pap Done and Mammogram order ed Fasting lab ordered 02/03/2011 Appointment: Josesito Del Rosario [facility]el[facility] [phone] [facility] [id number] [place] 02/03/2011 Patient Education: Patient Medication Summary Completed 02/03/2011 Visit Plan: Pap done Mammo done last wee k Lab discussed Discussed Bioidentical Hormones 12/25/2009 Appointment: Josesito Del Rosario [facility]el[facility] [phone] [facility] [id number] [place] P[place] 12/25/2009 Patient Education: Patient Medication Summary Completed 12/25/2009 Instructions Comment . Update fasting lab Pap done Had mammogram Weight bearing exercise . Try to decrease fluoxetine to 10mg kobe ly Check Mammo Check fasting lab Check Colonoscopy due to family hx of Colon Cancer . Long discussion about HRT--pt has [address] [place] [address] Ca on both sides--Discussed BRCA gene [...]
--- OUTSIDE RECORDS SUMMARY | 2019-05-15 23:45 | XMS REPORT | CCD ---
Author Author Caridad Del Rosario D.O. Organization [facility] Address [address] [place] [address] Phone Care Team Providers Care Stock Plan Administrator Name Role Phone PP Unavailable CCM Unavailable Summary Purpose Interface Exchange Insurance Providers Payer name Policy type / Coverage type Covered democrat ID Effective Begin Date Effective End Date [facility] Commercial Insurance [id number] Un known Family History Family History data [...] Instructions clindamycin HCl 300 mg capsule RxNorm: 878105 1 Capsule (s) Oral three times a day 05/02/2019 05/09/2019 Active fluoxetine 20 mg tablet RxNorm: 624053 1 Tablet(s) Oral QD 03/29/20 19 09/24/2019 Active Zithromax Z-Khoi 250 mg tablet RxNorm: 210178 Tablet(s) Oral as directed 03/25/2019 03/25/2019 Inactive Zithromax Z-Khoi 250 mg tablet RxNorm: 941622 Tablet(s) Oral as directed 03/25/2019 03/24/2019 Inactive famotidine 20 mg tablet RxNorm: 025214 1 Tablet(s) PO BID 10/19/2018 02/15/2019 Inactive Tessalon Perles 100 mg capsule RxNorm: 536203 1 Capsule (s) PO TID as needed for cough 07/26/2018 10/18/2018 Inactive Zithromax 500 mg tablet RxNorm: 787350 1 Tablet(s) PO QD 07/26/2018 0 07/25/2018 Inactive Zithromax 500 mg tablet RxNorm: 436109 1 Tablet(s) PO QD 07/26/2018 0 07/30/2018 Inactive Xanax 0.25 mg tablet RxNorm: 278634 1/2-1 Tablet(s) PO BID 06/01/19 19 No Stop Date Active fluoxetine 20 mg tablet RxNorm: 573121 1 Tablet(s) PO Q D Due for annual appointment in 06/01/2018 02/25/2019 Inactive fluoxetine 20 mg tablet RxNorm: 564021 1 Tablet(s) PO Q D Due for annual in [facility] 06/01/2018 02/25/2019 Inactive fluoxetine 20 mg tablet RxNorm: 754193 1 Tablet(s) PO QD 08/05/2017 1 07/02/2017 Inactive fluoxetine 20 mg tablet RxNorm: 367624 1 Tablet(s) PO QD 08/04/2017 0 08/04/2017 Inactive Xanax 0.25 mg tablet RxNorm: 092331 1/2-1 Tablet(s) PO BID 07/02/19 18 05/31/2018 Inactive fluoxetine 10 mg capsule RxNorm: 956507 2 Capsule(s) PO QAM 018 07/05/2018 Inactive Generic For:PROZAC 10 MG PUL VULE 09/24/2015 10:15:02 AM N O T I C E Last quantity doesn't match original quantity fluoxetine 10 mg capsule RxNorm: 829274 2 Capsule(s) PO QAM Routine wellness due after 02-04-17 12/03/2016 03/02/2017 Inactive Generic For:PROZ AC 10 MG PULVULE 09/24/2015 10:15:02 AM N O T I C E Last quantity doesn't match original quantity Xanax 0.25 mg tablet RxNorm: 962160 1/2-1 Tablet(s) PO BID 02/05/20 16 07/01/2017 Inactive fluoxetine 10 mg capsule RxNorm: 027459 2 Capsule(s) PO QAM 016 07/25/2018 Inactive fluoxetine 10 mg capsule RxNorm: 771695 2 Capsule(s) PO QAM 016 12/03/2016 Inactive Generic For:PROZAC 10 MG PUL VULE 09/24/2015 10:15:02 AM N O T I C E Last quantity doesn't match original quantity fluoxetine 10 mg capsule RxNorm: 238387 2 Capsule(s) PO QAM TAKE 2 CAPSULES BY MOUTH EVERY MORNING 11/16/2015 02/03/2016 Inactive Generic For: PROZAC 10 MG PULVULE 09/24/2015 10:15:02 AM N O T I C E Last quantity doesn't match original quantity fluoxetine 10 mg capsule RxNorm: 861139 2 Capsule(s) PO QAM TAKE 2 CAPSULES BY MOUTH EVERY MORNING 09/24/2015 11/15/2015 Inactive Generic For: PROZAC 10 MG PULVULE 09/24/2015 10:15:02 AM N O T I C E Last quantity doesn't match original quantity fluoxetine 10 mg capsule RxNorm: 960808 2 Capsule(s) PO QAM 015 09/24/2015 Inactive fluoxetine 10 mg capsule RxNorm: 335085 2 Capsule(s) PO QAM 015 07/28/2018 Inactive fluoxetine 10 mg capsule RxNorm: 411344 2 Capsule(s) PO QAM 014 05/21/2014 Inactive Xanax 0.25 mg tablet RxNorm: 835565 1/2-1 Tablet(s) PO BID 04/21/20 13 No Stop Date Active fluoxetine 10 mg capsule RxNorm: 377737 2 Capsule(s) PO QAM 013 01/24/2013 Inactive fluoxetine 10 mg capsule RxNorm: 419507 1 Capsule(s) PO QAM 013 10/26/2012 Inactive Multivitamin & Mineral Formula Tab RxNorm: 1 Tablet(s) PO QD No St art Date Active Zyrtec 10 mg tablet RxNorm: 7436488 1 Tablet(s) PO BID No Start Date Active Prilosec OTC 20 mg tablet,delayed release RxNorm: 190076 1 Tabl et(s) PO QD No Start Date Active Tessalon Perles 100 mg capsule RxNorm: 800322 1 Capsule (s) PO TID as needed for cough No Start Date 07/25/2018 Inactive Biotin Oral RxNorm: Oral No Start Date 10/18/2018 Inactive Zithromax Z-Khoi oral RxNorm: 45387 oral No Start Date 03/24/2019 Inactive Echinacea ACZ oral RxNorm: oral No Start Date 07/28/2018 Inacti ve Vitamin D3 1000 units Capsule RxNorm: 1 Capsule(s) PO QD No St art Date 07/28/2018 Inactive Black Cohosh Oral RxNorm: Oral No Start Date 07/28/2018 Inactiv e Xanax 0.25 mg tablet RxNorm: 104139 1/2-1 Tablet(s) PO BID No Start Date 04/20/2013 Inactive Zyrtec 10 mg tablet RxNorm: 0032426 1 Tablet(s) PO QD as needed No Start Date 10/18/2018 Inactive Vitamin C 1,000 mg tablet RxNorm: 420250 1 Tablet(s) PO QD No Start Date 10/18/2018 Inactive fluoxetine 20 mg tablet RxNorm: 917698 1 Tablet(s) PO QD No Start D ate 08/03/2017 Inactive Medication Administered No Medication Administered data Immunizations Vaccine Codes Date Status Influenza CVX: 141 04/08/2019 Influenza CVX: 141 04/26/2018 Results Observation Observation Code Item Item Code Result Date S ervice Location CULTURE, URINE, ROUTINE 395 CULTURE, URINE, ROUTINE 10/20/2018 [facility] [address] [place] [address] GFR CALC [id number] GFR Non Afr Amr >60 mL/min 07/05/2018 Un known GFR CALC 1785012 GFR Afr Amr >60 mL/min 07/05/2018 Unknow n FREE T4 55069 T4 Free 0.94 ng/dL 07/05/2018 Unknown [facility] 53938 Cholesterol 165 mg/dL 07/05/2018 Unkno wn [facility] 01629 Triglyceride 108 mg/dL 07/05/2018 Unkn own [facility] 56937 HDL CHOLESTEROL 50 mg/dL 07/05/2018 U nknown [facility] 63254 Chol/HDL Ratio 3.30 ratio 07/05/2018 U nknown [facility] 67487 NON-HDL Chol 115 mg/dL 07/05/2018 Unkn own [facility] 00801 LDL Cholesterol 93 mg/dL 07/05/2018 U nknown THYROID STIMULATING HORMONE 65753 TSH 0.937 uIU/mL 07/05/2018 Unknown COMPREHENSIVE METABOLIC 71813 AST 19 U/L 2018 Unknown COMPREHENSIVE METABOLIC 23358 ALT 21 U/L 2018 Unknown COMPREHENSIVE METABOLIC 84255 BUN 10 mg/dL 2018 Unknown COMPREHENSIVE METABOLIC 56833 ALBUMIN 4.3 g/dL 2018 Unknown COMPREHENSIVE METABOLIC 19951 CHLORIDE 106 mmol/L 07/05 Unknown COMPREHENSIVE METABOLIC 14714 Bili Total 0.3 mg/dL 07/05 Unknown COMPREHENSIVE METABOLIC 02356 ALK PHOS 59 U/L 2018 Unknown COMPREHENSIVE METABOLIC 68785 SODIUM 140 mmol/L 07/05 Unknown COMPREHENSIVE METABOLIC 69551 CREATININE 0.68 mg/dL 06/18 Unknown COMPREHENSIVE METABOLIC 19221 CALCIUM 9.2 mg/dL 2018 Unknown COMPREHENSIVE METABOLIC 38206 POTASSIUM 4.0 mmol/L 07/05 Unknown COMPREHENSIVE METABOLIC 01383 Total Protein 7.1 g/dL Unknown COMPREHENSIVE METABOLIC 20425 Glucose 84 mg/dL 2018 Unknown COMPREHENSIVE METABOLIC 79483 Bicarbonate 27 mmol/L 06/18 Unknown COMPREHENSIVE METABOLIC 60905 AGAP 7 mmol/L 2018 Unknown COMPLETE BLOOD COUNT 1650708 WBC 6.0 10e9/L 07/05/19 19 Unknown COMPLETE BLOOD COUNT [id number] RBC 4.36 10e12/L 2018 Unknown COMPLETE BLOOD COUNT [id number] HEMOGLOBIN 12.9 g/dL 07/05/19 19 Unknown COMPLETE BLOOD COUNT [id number] HEMATOCRIT 39.1 % 07/05/19 19 Unknown COMPLETE BLOOD COUNT 9200236 MCV 89.7 fL 9 Unknown COMPLETE BLOOD COUNT 1030101 MCH 29.6 pg 9 Unknown COMPLETE BLOOD COUNT 7398736 MCHC 33.0 g/dL 9 Unknown COMPLETE BLOOD COUNT 4915089 PLATELET COUNT 270 10e9/L Unknown COMPLETE BLOOD COUNT 7367320 Mean Plt Volume 9.0 fL Unknown COMPLETE BLOOD COUNT 6721753 Neut Auto 53.8 % 9 Unknown COMPLETE BLOOD COUNT 6790880 Lymph Auto 35.8 % 07/05/19 19 Unknown COMPLETE BLOOD COUNT 0945628 Mellette Auto 7.9 % 9 Unknown COMPLETE BLOOD COUNT 9162534 RDW 13.9 % 9 Unknown COMPLETE BLOOD COUNT 1616238 Eos Auto 2.0 % 9 Unknown COMPLETE BLOOD COUNT 0016977 Baso Auto 0.5 % 9 Unknown COMPLETE BLOOD COUNT 6944536 Neutrophil Abs 3.23 10e9/L Unknown COMPLETE BLOOD COUNT 4640043 Lymphocyte Abs 2.15 10e9/L Unknown COMPLETE BLOOD COUNT [id number] Monocyte Abs 0.47 10e9/L 06/18 Unknown COMPLETE BLOOD COUNT 6551695 Eosinophil Abs 0.12 10e9/L Unknown COMPLETE BLOOD COUNT 6979328 RDW-SD 44.5 fL 9 Unknown COMPLETE BLOOD COUNT 4344676 Basophil Abs 0.03 10e9/L 06/18 Unknown FREE T4 06959 T4 Free 1.21 ng/dL 06/30/2017 Unknown GFR CALC 9386509 GFR Non Afr Amr >60 mL/min 06/30/2017 Un known GFR CALC 7916815 GFR Afr Amr >60 mL/min 06/30/2017 Unknow n THYROID STIMULATING HORMONE 30919 TSH 0.873 uIU/mL 06/30/2017 Unknown [facility] 31157 Cholesterol 175 mg/dL 06/30/2017 Unkno wn [facility] 89606 Triglyceride 129 mg/dL 06/30/2017 Unkn own [facility] 13564 HDL CHOLESTEROL 51 06/30/2017 U nknown [facility] 46783 Chol/HDL Ratio 3.43 ratio 06/30/2017 U nknown [facility] 18942 NON-HDL Chol 124 mg/dL 06/30/2017 Unkn own [facility] 30179 LDL Cholesterol 98 mg/dL 06/30/2017 U nknown COMPLETE BLOOD COUNT 2779891 WBC 6.2 10e9/L 06/30/19 18 Unknown COMPLETE BLOOD COUNT 6984597 RBC 4.58 10e12/L 2017 Unknown COMPLETE BLOOD COUNT 1187643 HEMOGLOBIN 13.3 g/dL 06/30/19 18 Unknown COMPLETE BLOOD COUNT 4540511 HEMATOCRIT 41.6 % 06/30/19 18 Unknown COMPLETE BLOOD COUNT 2880458 MCV 90.8 fL 8 Unknown COMPLETE BLOOD COUNT 8252835 MCH 29.0 pg 8 Unknown COMPLETE BLOOD COUNT 8613678 MCHC 32.0 g/dL 8 Unknown COMPLETE BLOOD COUNT 0282720 PLATELET COUNT 271 10e9/L Unknown COMPLETE BLOOD COUNT 8329543 Mean Plt Volume 8.9 fL Unknown COMPLETE BLOOD COUNT 3829090 Neut Auto 53.5 % 8 Unknown COMPLETE BLOOD COUNT 7794642 Lymph Auto 36.4 % 06/30/19 18 Unknown COMPLETE BLOOD COUNT 3562438 Mellette Auto 8.1 % 8 Unknown COMPLETE BLOOD COUNT 9924082 RDW 13.4 % 8 Unknown COMPLETE BLOOD COUNT 7490054 Eos Auto 1.5 % 8 Unknown COMPLETE BLOOD COUNT 0174091 Baso Auto 0.5 % 8 Unknown COMPLETE BLOOD COUNT 7052845 Neutrophil Abs 3.32 10e9/L Unknown COMPLETE BLOOD COUNT 7278980 Lymphocyte Abs 2.26 10e9/L Unknown COMPLETE BLOOD COUNT 7196289 Monocyte Abs 0.50 10e9/L 06/18 Unknown COMPLETE BLOOD COUNT 5913549 Eosinophil Abs 0.09 10e9/L Unknown COMPLETE BLOOD COUNT 9773525 RDW-SD 43.9 fL 8 Unknown COMPLETE BLOOD COUNT 3662180 Basophil Abs 0.03 10e9/L 06/18 Unknown COMPREHENSIVE METABOLIC 76846 AST 19 U/L 2017 Unknown COMPREHENSIVE METABOLIC 14124 ALT 22 U/L 2017 Unknown COMPREHENSIVE METABOLIC 54056 BUN 12 mg/dL 2017 Unknown COMPREHENSIVE METABOLIC 45282 ALBUMIN 4.9 g/dL 2017 Unknown COMPREHENSIVE METABOLIC 01817 CHLORIDE 106 mmol/L 06/30 Unknown COMPREHENSIVE METABOLIC 60114 Bili Total 0.4 mg/dL 06/30 Unknown COMPREHENSIVE METABOLIC 95400 ALK PHOS 66 U/L 2017 Unknown COMPREHENSIVE METABOLIC 39210 SODIUM 143 mmol/L 06/30 Unknown COMPREHENSIVE METABOLIC 94270 CREATININE 0.71 mg/dL 06/18 Unknown COMPREHENSIVE METABOLIC 35430 CALCIUM 9.9 mg/dL 2017 Unknown COMPREHENSIVE METABOLIC 38295 POTASSIUM 4.1 mmol/L 06/30 Unknown COMPREHENSIVE METABOLIC 46221 Total Protein 8.0 g/dL Unknown COMPREHENSIVE METABOLIC 86773 Glucose 87 mg/dL 2017 Unknown COMPREHENSIVE METABOLIC 94711 Bicarbonate 27 mmol/L 06/18 Unknown COMPREHENSIVE METABOLIC 88617 AGAP 10 mmol/L 2017 Unknown GFR CALC 4857967 GFR AA >60 ML/MIN 12/19/2013 Unknown GFR CALC 9833138 GFR NON-AA >60 ML/MIN 12/19/2013 Unknown LIPID GROUP 92460 HDL TEST 52 MG/DL 12/19/2013 Unknown [facility] GROUP 04153 TRIG 96 MG/DL 12/19/2013 Unknown [facility] 77327 TEST LDL 98 MG/DL 12/19/2013 Unknown [facility] 22975 CHOL 169 MG/DL 12/19/2013 Unknown [facility] GROUP 84140 RCHOL/HDL 3.25 RATIO 12/19/2013 Unknow n LIP[facility] GROUP 85998 NON-HDL CH 117 MG/DL 12/19/2013 Unknow n COMPLETE BLOOD COUNT 9518031 WBC 5.6 10e9/L 12/20/19 14 Unknown COMPLETE BLOOD COUNT 2430837 RBC 4.45 10e12/L 2013 Unknown COMPLETE BLOOD COUNT 9747552 HGB 13.0 g/dL 4 Unknown COMPLETE BLOOD COUNT 3375443 HCT DET 39.9 % 4 Unknown COMPLETE BLOOD COUNT 9663421 MCV 89.7 fL 4 Unknown COMPLETE BLOOD COUNT 4008740 MCH 29.2 pg 4 Unknown COMPLETE BLOOD COUNT 7339200 MCHC 32.6 g/dL 4 Unknown COMPLETE BLOOD COUNT 8554157 PLT 244 10e9/L 12/20/19 14 Unknown COMPLETE BLOOD COUNT 7605218 MPV 9.4 fL 4 Unknown COMPLETE BLOOD COUNT 9564266 PABLITO % 58.5 % 4 Unknown COMPLETE BLOOD COUNT 4826653 LY % 30.8 % 4 Unknown COMPLETE BLOOD COUNT 4841669 MON % 8.2 % 4 Unknown COMPLETE BLOOD COUNT 5206008 EOS % 2.0 % 4 Unknown COMPLETE BLOOD COUNT 6798115 BASO % 0.5 % 4 Unknown COMPLETE BLOOD COUNT 6510560 RDW 13.6 % 4 Unknown COMPLETE BLOOD COUNT 2160985 ABS PABLITO 3.28 10e9/L 014 Unknown COMPLETE BLOOD COUNT 3968720 ABS LYMPH 1.72 10e9/L 014 Unknown COMPLETE BLOOD COUNT 9981459 ABS MONO 0.46 10e9/L 014 Unknown COMPLETE BLOOD COUNT 0926162 ABS EOS 0.11 10e9/L 014 Unknown COMPLETE BLOOD COUNT 1511292 ABS BASO 0.03 10e9/L 014 Unknown COMPLETE BLOOD COUNT 1033577 RDW-SD 43.6 fL 4 Unknown FREE T4 52746 FREE T4 1.26 NG/DL 12/19/2013 Unknown COMPREHENSIVE METABOLIC 16010 AST 18 U/L 2013 Unknown COMPREHENSIVE METABOLIC 91456 ALT 22 IU/L 2013 Unknown COMPREHENSIVE METABOLIC 74299 BUN 11 MG/DL 2013 Unknown COMPREHENSIVE METABOLIC 65638 ALBUMIN 4.7 GM/DL 2013 Unknown COMPREHENSIVE METABOLIC 13280 CHLORIDE 108 MMOL/L 12/19 Unknown COMPREHENSIVE METABOLIC 04458 BILI TOT 0.3 MG/DL 2013 Unknown COMPREHENSIVE METABOLIC 91482 ALK PHOS 67 U/L 2013 Unknown COMPREHENSIVE METABOLIC 15618 SODIUM 141 MMOL/L 12/19 Unknown COMPREHENSIVE METABOLIC 45789 CREATININE 0.67 MG/DL 08/2013 Unknown COMPREHENSIVE METABOLIC 81599 CALCIUM 9.4 MG/DL 2013 Unknown COMPREHENSIVE METABOLIC 80289 POTASSIUM 4.1 MMOL/L 12/19 Unknown COMPREHENSIVE METABOLIC 85572 PROT TOT 7.0 GM/DL 2013 Unknown COMPREHENSIVE METABOLIC 40534 Glucose 94 MG/DL 2013 Unknown COMPREHENSIVE METABOLIC 95737 BICARB 27 MMOL/L 2013 Unknown COMPREHENSIVE METABOLIC 23627 ANION GAP 6 MEQ/L 2013 Unknown THYROID STIMULATING HORMONE 19400 TSH 0.547 uIU/ML 12/19/2013 Unknown GFR CALC 1210696 GFR AA >60 ML/MIN 02/03/2011 Unknown GFR CALC 1653487 GFR NON-AA >60 ML/MIN 02/03/2011 Unknown THYROID STIMULATING HORMONE 76014 TSH 0.818 uIU/ML 02/03/2011 Unknown COMPLETE BLOOD COUNT 89804 WBC 7.7 10e9/L 02/04/20 11 Unknown COMPLETE BLOOD COUNT 87091 RBC 4.23 10e12/L 2010 Unknown COMPLETE BLOOD COUNT 39269 HGB 11.9 g/dL 1 Unknown COMPLETE BLOOD COUNT 72535 HCT DET 36.5 % 1 Unknown COMPLETE BLOOD COUNT 54907 MCV 86.3 fL 1 Unknown COMPLETE BLOOD COUNT 18257 MCH 28.1 pg 1 Unknown COMPLETE BLOOD COUNT 92388 MCHC 32.6 g/dL 1 Unknown COMPLETE BLOOD COUNT 68962 PLT 244 10e9/L 02/04/20 11 Unknown COMPLETE BLOOD COUNT 55837 MPV 8.7 fL 1 Unknown COMPLETE BLOOD COUNT 40145 PABLITO % 58.9 % 1 Unknown COMPLETE BLOOD COUNT 47751 LY % 31.1 % 1 Unknown COMPLETE BLOOD COUNT 08850 MON % 7.9 % 1 Unknown COMPLETE BLOOD COUNT 57438 EOS % 1.8 % 1 Unknown COMPLETE BLOOD COUNT 13584 BASO % 0.3 % 1 Unknown COMPLETE BLOOD COUNT 28547 RDW 14.7 % 1 Unknown COMPLETE BLOOD COUNT 68996 ABS PABLITO 4.54 10e9/L 011 Unknown COMPLETE BLOOD COUNT 71284 ABS LYMPH 2.39 10e9/L 011 Unknown COMPLETE BLOOD COUNT 79746 ABS MONO 0.61 10e9/L 011 Unknown COMPLETE BLOOD COUNT 39882 ABS EOS 0.14 10e9/L 011 Unknown COMPLETE BLOOD COUNT 46428 ABS BASO 0.02 10e9/L 011 Unknown COMPLETE BLOOD COUNT 97518 RDW-SD 45.1 fL 1 Unknown COMPREHENSIVE METABOLIC 18775 AST 16 U/L 2010 Unknown COMPREHENSIVE METABOLIC 07556 ALT 21 IU/L 2010 Unknown COMPREHENSIVE METABOLIC 14898 BUN 9 MG/DL 2010 Unknown COMPREHENSIVE METABOLIC 99485 ALBUMIN 4.5 GM/DL 2010 Unknown COMPREHENSIVE METABOLIC 67990 CHLORIDE 104 MMOL/L 02/03 Unknown COMPREHENSIVE METABOLIC 07122 BILI TOT 0.2 MG/DL 2010 Unknown COMPREHENSIVE METABOLIC 11579 ALK PHOS 65 U/L 2010 Unknown COMPREHENSIVE METABOLIC 59249 SODIUM 137 MMOL/L 02/03 Unknown COMPREHENSIVE METABOLIC 86100 CREATININE 0.64 MG/DL 01/16 Unknown COMPREHENSIVE METABOLIC 47937 CALCIUM 8.8 MG/DL 2010 Unknown COMPREHENSIVE METABOLIC 08882 POTASSIUM 3.8 MMOL/L 02/03 Unknown COMPREHENSIVE METABOLIC 43415 PROT TOT 6.7 GM/DL 2010 Unknown COMPREHENSIVE METABOLIC 09970 Glucose 88 MG/DL 2010 Unknown COMPREHENSIVE METABOLIC 35832 BICARB 26 MMOL/L 2010 Unknown COMPREHENSIVE METABOLIC 62926 ANION GAP 7 MEQ/L 2010 Unknown FREE T4 93452 FREE T4 1.24 NG/DL 02/03/2011 Unknown Procedures Procedure Codes Date CEFTRIAXONE SODIUM INJECTION CPT-4: J0696 05/02/2019 THER/PROPH/DIAG INJ SC/IM CPT-4: 37005 05/02/2019 DEXAMETHASONE SODIUM PHOS CPT-4: J1100 10/19/2018 THER/PROPH/DIAG INJ SC/IM CPT-4: 80151 10/19/2018 URINE CULTURE/ COLONY COUNT CPT-4: 63706 10/19/2018 URINALYSIS NONAUTO W/O SCOPE CPT-4: 13465 10/19/2018 THROAT CULTURE CPT-4: 59094 07/29/2018 STREP A ASSAY W/OPTIC CPT-4: 41430 07/26/2018 SPECIMEN HANDLING OFFICE-LAB CPT-4: 56360 07/06/2018 OCCULT BLOOD FECES CPT-4: 17962 07/06/2018 ROUTINE VENIPUNCTURE CPT-4: 89482 12/19/2013 ASSAY OF FREE THYROXINE CPT-4: 74420 12/19/2013 ASSAY THYROID STIM HORMONE CPT-4: 32964 12/19/2013 COMPREHEN METABOLIC PANEL CPT-4: 45765 12/19/2013 COMPLETE CBC W/AUTO DIFF WBC CPT-4: 53280 12/19/2013 LIPID PANEL CPT-4: 15903 12/19/2013 OCCULT BLOOD FECES CPT-4: 35573 02/03/2011 SPECIMEN HANDLING OFFICE-LAB CPT-4: 61797 12/25/2009 OCCULT BLOOD FECES CPT-4: 66268 12/25/2009 Vital Signs Date Vital 05/02/2019 Blood Pressure 1: 132/80 Code: 8480-6 [...] 1: 130/78 Code: 8480-6 BMI: 30.7 Code: 67757-6 Heart Rate 1: 76 bpm Height: 5'9" Respiratory Rate: 20 bpm Temperature: 36 .8 (C) / 98.3 (F) Weight: 208 lbs 06/30/2017 Blood Pressure 1: 126/80 Code: 8480-6 BMI: 30.9 Code: 77116-8 Heart Rate 1: 72 bpm Height: 5'9" Respiratory Rate: 20 bpm Temperature: 36 .7 (C) / 98.0 (F) Weight: 209 lbs 02/04/2016 Blood Pressure 1: 122/80 Code: 8480-6 BMI: 31.3 Code: 83868-0 Heart Rate 1: 80 bpm Height: 5'9" Respiratory Rate: 20 bpm Temperature: 36 .6 (C) / 97.8 (F) Weight: 212 lbs 12/19/2013 Blood Pressure 1: 116/78 Code: 8480-6 BMI: 30.1 Code: 31501-3 Heart Rate 1: 76 bpm Height: 5'9" Respiratory Rate: 20 bpm Temperature: 36 .8 (C) / 98.3 (F) Weight: 204 lbs 10/27/2012 Blood Pressure 1: 114/70 Code: 8480-6 BMI: 30.3 Code: 94473-5 Heart Rate 1: 68 bpm Height: 5'9" Respiratory Rate: 20 bpm Temperature: 36 .8 (C) / 98.3 (F) Weight: 205 lbs 09/01/2012 Blood Pressure 1: 118/82 Code: 8480-6 BMI: 30.9 Code: 68947-0 Heart Rate 1: 80 bpm Height: 5'9" Respiratory Rate: 20 bpm Temperature: 36 .8 (C) / 98.2 (F) Weight: 209 lbs 02/03/2011 Blood Pressure 1: 118/76 Code: 8480-6 BMI: 29.5 Code: 08740-6 Heart Rate 1: 72 bpm Height: 5'9" Weight: 200 lbs 12/25/2009 Blood Pressure 1: 122/76 Code: 8480-6 BMI: 29.5 Code: 55827-4 Heart Rate 1: 80 bpm Height: 5'9" Temperature: 36.8 (C) / 98.3 (F) Weight: 200 lbs Functional Status No Functional Status data Reason For Visit Reason For Visit Effective Dates Notes cellulitis 05/02/2019 weight check 10/20/2018 edema 10/19/2018 [...] 11/24 Encounters Encounter Performer Location Codes Date ([id number]) OFFICE/OUTPATIENT VISIT EST Diagnosis: Cellulitis of right breast[ICD10: N61.0] Meghan BELL[facility]Y [facility] CPT-4: 12407 05/02/2019 ([id number]) OFFICE/OUTPATIENT VISIT EST Diagnosis: Edema, unspecified[ICD10: R60.9] Diagnosis: Adverse effect of unspecified drugs, medicaments and biological substances, initial encounter[ICD10: T50.905A] Diagnosis: Gross hematuria[ICD10: R31.0] Meghan BELLAMY [facility] CPT-4: 50638 10/19/2018 ([id number]) OFFICE/OUTPATIENT VISIT EST Diagnosis: URI, ACUTE[ICD10: J06.9] Meghan SolisKya YAMILETH ROLLINS [facility] CPT-4: 44347 07/29/2018 ([id number]) OFFICE/OUTPATIENT VISIT EST Diagnosis: Acute pharyngitis, unspecified[ICD10: J02.9] Diagnosis: URI, ACUTE[ICD10: J06.9] Meghan SolisKya YAMILETH RIA [employer] CPT-4: 91168 07/26/2018 ([id number]) PREV VISIT EST AGE 40-64 Diagnosis: Encounter for general adult medical examination without abnormal findings[ICD10: Z00.00] Diagnosis: Encounter for gynecological examination (general) (routine) without abnormal findings[ICD10: Z01.419] Diagnosis: Menopausal and female climacteric states[ICD10: N95.1] Diagnosis: Other abnormal and inconclusive findings on diagnostic imaging of breast[ICD10: R92.8] Meghan Angelitobradlupe PEREZMEGHAN IrmaKya ANGELITOBRADLUPE [employer] CPT-4: 69721 07/06/2018 ([id number]) PREV VISIT EST AGE 40-64 Diagnosis: Encounter for general adult medical examination without abnormal findings[ICD10: Z00.00] Diagnosis: Encounter for gynecological examination (general) (routine) without abnormal findings[ICD10: Z01.419] Meghan Angelitobradlupe MEGHAN IrmaKya ANGELITOFACUNDO Lund [employer] CPT-4: 49366 06/30/2017 ([id number]) PREV VISIT EST AGE 40-64 Diagnosis: Encounter for general adult medical examination without abnormal findings[ICD10: Z00.00] Meghan BELLAMY IrmaKya ANGELITOBRADLUPE [facility] CPT-4: 09690 02/04/2016 ([id number]) PREV VISIT EST AGE 40-64 Diagnosis: ROUTINE MEDICAL EXAM[ICD9: V70.0] Diagnosis: MENOPAUSAL DISORDER[ICD9: 627.9] Meghan BELLAMY IrmaKya DEL [facility]ARIO [facility] CPT-4: 37563 12/19/2013 OFFICE/OUTPATIENT VISIT EST Diagnosis: MENOPAUSAL DISORDER[ICD9: 627.9] Meghan BELLAMY IrmaKya [facility] CPT-4: 25020 10/27/2012 ([id number]) PREV VISIT EST AGE 40-64 Diagnosis: ROUTINE MEDICAL EXAM[ICD9: V70.0] Diagnosis: MENOPAUSAL DISORDER[ICD9: 627.9] Meghan DEL ROSARIO DO [facility] CPT-4: 34735 09/01/2012 PREV VISIT EST AGE 40-64 Diagnosis: ROUTINE GYNE EXAM[ICD9: V72.31] Diagnosis: ROUTINE MEDICAL EXAM[ICD9: V70.0] Meghan DEL ROSARIO DO [facility] CPT-4: 70939 02/03/2011 SPECIMEN HANDLING Diagnosis: [ICD9: ] Diagnosis: [ICD9: ] Megahn DEL ROSARIO DO [facility] CPT-4: 9900 0 02/03/2011 ([id number]) PREV VISIT, EST, AGE 40-64 Meghan DEL ROSARIO DO [facility] CPT-4: 21829 12/25/2009 Plan of Care Planned Activity Notes Codes Status Date Visit Diagnosis Plan: Cellulitis of right breast Discu ssion: Rocephin 1gm IM now Start clindamycin with a probiotic Recheck tomorrow ICD-9 : 611.0 ICD-10 : N61.0 05/02/2019 Patient Education: clindamycin HCl- [employer] Coupon [id number] [email or web address] Completed 05/02/2019 Care Plan[facility] Pending 10/21/2018 App[facility]ment: Meghan Del Rosario [facility] [phone] [id number] [place] WT CHECK 10/20/2018 Visit Diagnosis Plan: [...] : 782.3 ICD-10 : R60.9 10/19/2018 Appointment: Meghan Del Rosraio WPtel: [address] [place], [place] [phone] 10/19/2018 Appointment: Meghan Del Rosario WPtel: [address] [place], [place] [phone] US Per DR ROBERTSON 08/02/2018 Visit Diagnosis Plan: URI, ACUTE Discussion: CXR negat johnna Lungs clear Only physical exam finding is injection on throat and mild fluid behind ears Will increase zyrtec to BID Throat Culture Notify surgeon of current course ICD-9 : 465.9 ICD-10 : J06.9 07/29/2018 Appointment: Meghan Del Rosario WPtel: [address] [place], [place] [phone] WORK IN 07/29/2018 Visit Diagnosis Plan: Acute pharyngitis, unspecified D iscussion: Strep Negative Cover with Zithromax with upcoming surgery next week but if worsens will let us know and will have to postpone surgery ICD-9 : 462 ICD-10 : J02.9 07/26/2018 Visit NOS Plan: Plan Notes: Supportive care. Rest, Fluids... 07/26/2018 Appointment: Meghan Del Rosario WPtel: [address] [place], [place] [phone] ACUTE ILLNESS 07/26/2018 Visit Diagnosis Plan: Encounter [...] : 627.9 ICD-10 : N95.1 07/06/2018 Appointment: Meghan Del Rosario WPtel: [address] [place], [place] [phone] US PAP 07/06/2018 Care Plan: MAMMOGRAM BOTH BREASTS Diagnostic Mammogram of [place] Breast LOINC : 05902-9 Pending 06/24/2018 Care Plan: US EXAM CHEST [...] : V72.31 ICD-10 : Z01.419 06/30/2017 Appointment: Meghan Del Rosario WPtel: [address] [place], [place] [phone] [place] PAP 06/30/2017 Patient Education: Patient Medication Summary Completed 06/30/2017 Visit Plan: Update fasting lab Pap done Had mammogram Weight bearing exercise 02/04/2016 Appointment: Meghan Del Rosario WPtel: [address] [place], [place] [phone] [place] 01/30 confirmed~sl PAP 02/04/2016 Patient Education: Patient Medication Summary Completed 02/04/2016 Appointment: Meghan Del Rosario WPtel: [address] [place], [place] [phone] [place] RESCHEDULED 01/17/2016 Patient Education: Patient Medication Summary Completed 12/31/2015 Care Plan: MAMMOGRAM SCREENING LOINC : 2 6347-5 Pending 12/31/2015 Visit Plan: Try to decrease fluoxetine t o 10mg daily Check Mammo Check fasting lab Check Colonoscopy due to family hx of Colon Cancer 12/19/2013 Appointment: Meghan Del Rosario WPtel: [address] [place], [place] [phone] 12/16 vm PAP 12/19/2013 Patient Education: Patient Medication Summary Completed 12/19/2013 Visit Plan: Long discussion about HRT--p t has Breast Ca on both sides--Discussed BRCA gene testing in Mom Will try higher dose of fluoxetine 10/27/2012 Appointment: Meghan Del Rosario WPtel: [address] [place] [address] FOLLOW UP 10/27/2012 Patient Education: Patient Medication Summary Completed 10/27/2012 Visit Plan: Lab discussed Add fish oil 3 grams daily Long discussion about hormones Trial of fluoxetine 09/01/2012 Appointment: Meghan Del Rosario WPtel: [address] [place], [place] [phone] PAP 09/01/2012 Patient Education: Patient Medication Summary Completed 09/01/2012 Visit Plan: Pap Done and Mammogram order ed Fasting lab ordered 02/03/2011 Appointment: Meghan Del Rosario WPtel: [address] [place], [place] [phone] [place] PAP 02/03/2011 Patient Education: Patient Medication Summary Completed 02/03/2011 Visit Plan: Pap done Mammo done last wee k Lab discussed Discussed Bioidentical Hormones 12/25/2009 Appointment: Meghan Del Rosario WPtel: [address] [place], [place] [phone] [place] PAP 12/25/2009 Patient Education: Patient Medication Summary Completed 12/25/2009 Instructions Comment . Update fasting lab Pap done Had mammogram Weight bearing exercise . Try to decrease fluoxetine to 10mg kobe ly Check Mammo Check fasting lab Check Colonoscopy due to family hx of Colon Cancer . Long discussion about HRT--pt has [place] st Ca on both sides--Discussed BRCA gene [...]
--- OUTSIDE RECORDS SUMMARY | 2019-05-15 23:45 | XMS REPORT | CCD ---
Author Author Caridad Del Rosario D.O. Organization [facility] Address [address] [place] [address] Phone Care Team Providers Care Bungy Jump Master Name Role Phone PP Unavailable CCM Unavailable Summary Purpose Interface Exchange Insurance Providers Payer name Policy type / Coverage type Covered republican ID Effective Begin Date Effective End Date [facility] Commercial Insurance [id number] Un known Family History Family History data [...] Instructions clindamycin HCl 300 mg capsule RxNorm: 777374 1 Capsule (s) Oral three times a day 05/02/2019 05/09/2019 Active fluoxetine 20 mg tablet RxNorm: 761765 1 Tablet(s) Oral QD 03/29/20 19 09/24/2019 Active Zithromax Z-Khoi 250 mg tablet RxNorm: 561685 Tablet(s) Oral as directed 03/25/2019 03/25/2019 Inactive Zithromax Z-Khoi 250 mg tablet RxNorm: 135586 Tablet(s) Oral as directed 03/25/2019 03/24/2019 Inactive famotidine 20 mg tablet RxNorm: 356237 1 Tablet(s) PO BID 10/19/2018 02/15/2019 Inactive Tessalon Perles 100 mg capsule RxNorm: 251969 1 Capsule (s) PO TID as needed for cough 07/26/2018 10/18/2018 Inactive Zithromax 500 mg tablet RxNorm: 321599 1 Tablet(s) PO QD 07/26/2018 0 07/25/2018 Inactive Zithromax 500 mg tablet RxNorm: 897705 1 Tablet(s) PO QD 07/26/2018 0 07/30/2018 Inactive Xanax 0.25 mg tablet RxNorm: 740016 1/2-1 Tablet(s) PO BID 06/01/19 19 No Stop Date Active fluoxetine 20 mg tablet RxNorm: 080179 1 Tablet(s) PO Q D Due for annual appointment in 06/01/2018 02/25/2019 Inactive fluoxetine 20 mg tablet RxNorm: 938903 1 Tablet(s) PO Q D Due for annual in [facility] 06/01/2018 02/25/2019 Inactive fluoxetine 20 mg tablet RxNorm: 766971 1 Tablet(s) PO QD 08/05/2017 1 07/02/2017 Inactive fluoxetine 20 mg tablet RxNorm: 587149 1 Tablet(s) PO QD 08/04/2017 0 08/04/2017 Inactive Xanax 0.25 mg tablet RxNorm: 910426 1/2-1 Tablet(s) PO BID 07/02/19 18 05/31/2018 Inactive fluoxetine 10 mg capsule RxNorm: 923212 2 Capsule(s) PO QAM 018 07/05/2018 Inactive Generic For:PROZAC 10 MG PUL VULE 09/24/2015 10:15:02 AM N O T I C E Last quantity doesn't match original quantity fluoxetine 10 mg capsule RxNorm: 439274 2 Capsule(s) PO QAM Routine wellness due after 02-04-17 12/03/2016 03/02/2017 Inactive Generic For:PROZ AC 10 MG PULVULE 09/24/2015 10:15:02 AM N O T I C E Last quantity doesn't match original quantity Xanax 0.25 mg tablet RxNorm: 351432 1/2-1 Tablet(s) PO BID 02/05/20 16 07/01/2017 Inactive fluoxetine 10 mg capsule RxNorm: 145821 2 Capsule(s) PO QAM 016 07/25/2018 Inactive fluoxetine 10 mg capsule RxNorm: 835680 2 Capsule(s) PO QAM 016 12/03/2016 Inactive Generic For:PROZAC 10 MG PUL VULE 09/24/2015 10:15:02 AM N O T I C E Last quantity doesn't match original quantity fluoxetine 10 mg capsule RxNorm: 495349 2 Capsule(s) PO QAM TAKE 2 CAPSULES BY MOUTH EVERY MORNING 11/16/2015 02/03/2016 Inactive Generic For: PROZAC 10 MG PULVULE 09/24/2015 10:15:02 AM N O T I C E Last quantity doesn't match original quantity fluoxetine 10 mg capsule RxNorm: 670118 2 Capsule(s) PO QAM TAKE 2 CAPSULES BY MOUTH EVERY MORNING 09/24/2015 11/15/2015 Inactive Generic For: PROZAC 10 MG PULVULE 09/24/2015 10:15:02 AM N O T I C E Last quantity doesn't match original quantity fluoxetine 10 mg capsule RxNorm: 546849 2 Capsule(s) PO QAM 015 09/24/2015 Inactive fluoxetine 10 mg capsule RxNorm: 143293 2 Capsule(s) PO QAM 015 07/28/2018 Inactive fluoxetine 10 mg capsule RxNorm: 522247 2 Capsule(s) PO QAM 014 05/21/2014 Inactive Xanax 0.25 mg tablet RxNorm: 573746 1/2-1 Tablet(s) PO BID 04/21/20 13 No Stop Date Active fluoxetine 10 mg capsule RxNorm: 430418 2 Capsule(s) PO QAM 013 01/24/2013 Inactive fluoxetine 10 mg capsule RxNorm: 925313 1 Capsule(s) PO QAM 013 10/26/2012 Inactive Multivitamin & Mineral Formula Tab RxNorm: 1 Tablet(s) PO QD No St art Date Active Zyrtec 10 mg tablet RxNorm: 6418741 1 Tablet(s) PO BID No Start Date Active Prilosec OTC 20 mg tablet,delayed release RxNorm: 996830 1 Tabl et(s) PO QD No Start Date Active Tessalon Perles 100 mg capsule RxNorm: 230983 1 Capsule (s) PO TID as needed for cough No Start Date 07/25/2018 Inactive Biotin Oral RxNorm: Oral No Start Date 10/18/2018 Inactive Zithromax Z-Khoi oral RxNorm: 79345 oral No Start Date 03/24/2019 Inactive Echinacea ACZ oral RxNorm: oral No Start Date 07/28/2018 Inacti ve Vitamin D3 1000 units Capsule RxNorm: 1 Capsule(s) PO QD No St art Date 07/28/2018 Inactive Black Cohosh Oral RxNorm: Oral No Start Date 07/28/2018 Inactiv e Xanax 0.25 mg tablet RxNorm: 653316 1/2-1 Tablet(s) PO BID No Start Date 04/20/2013 Inactive Zyrtec 10 mg tablet RxNorm: 3342936 1 Tablet(s) PO QD as needed No Start Date 10/18/2018 Inactive Vitamin C 1,000 mg tablet RxNorm: 897920 1 Tablet(s) PO QD No Start Date 10/18/2018 Inactive fluoxetine 20 mg tablet RxNorm: 434150 1 Tablet(s) PO QD No Start D ate 08/03/2017 Inactive Medication Administered No Medication Administered data Immunizations Vaccine Codes Date Status Influenza CVX: 141 04/08/2019 Influenza CVX: 141 04/26/2018 Results Observation Observation Code Item Item Code Result Date S ervice Location CULTURE, URINE, ROUTINE 395 CULTURE, URINE, ROUTINE 10/20/2018 [facility] [address] [place] [address] GFR CALC 6686042 GFR Non Afr Amr >60 mL/min 07/05/2018 Un known GFR CALC 0253769 GFR Afr Amr >60 mL/min 07/05/2018 Unknow n FREE T4 14560 T4 Free 0.94 ng/dL 07/05/2018 Unknown [facility] 69473 Cholesterol 165 mg/dL 07/05/2018 Unkno wn [facility] 88918 Triglyceride 108 mg/dL 07/05/2018 Unkn own [facility] 68155 HDL CHOLESTEROL 50 mg/dL 07/05/2018 U nknown [facility] 49898 Chol/HDL Ratio 3.30 ratio 07/05/2018 U nknown [facility] 83914 NON-HDL Chol 115 mg/dL 07/05/2018 Unkn own [facility] 03595 LDL Cholesterol 93 mg/dL 07/05/2018 U nknown THYROID STIMULATING HORMONE 18788 TSH 0.937 uIU/mL 07/05/2018 Unknown COMPREHENSIVE METABOLIC 47975 AST 19 U/L 2018 Unknown COMPREHENSIVE METABOLIC 26461 ALT 21 U/L 2018 Unknown COMPREHENSIVE METABOLIC 37971 BUN 10 mg/dL 2018 Unknown COMPREHENSIVE METABOLIC 45755 ALBUMIN 4.3 g/dL 2018 Unknown COMPREHENSIVE METABOLIC 34268 CHLORIDE 106 mmol/L 07/05 Unknown COMPREHENSIVE METABOLIC 34908 Bili Total 0.3 mg/dL 07/05 Unknown COMPREHENSIVE METABOLIC 58736 ALK PHOS 59 U/L 2018 Unknown COMPREHENSIVE METABOLIC 21564 SODIUM 140 mmol/L 07/05 Unknown COMPREHENSIVE METABOLIC 84660 CREATININE 0.68 mg/dL 06/18 Unknown COMPREHENSIVE METABOLIC 24678 CALCIUM 9.2 mg/dL 2018 Unknown COMPREHENSIVE METABOLIC 35073 POTASSIUM 4.0 mmol/L 07/05 Unknown COMPREHENSIVE METABOLIC 64260 Total Protein 7.1 g/dL Unknown COMPREHENSIVE METABOLIC 14548 Glucose 84 mg/dL 2018 Unknown COMPREHENSIVE METABOLIC 84506 Bicarbonate 27 mmol/L 06/18 Unknown COMPREHENSIVE METABOLIC 58523 AGAP 7 mmol/L 2018 Unknown COMPLETE BLOOD COUNT 0280246 WBC 6.0 10e9/L 07/05/19 19 Unknown COMPLETE BLOOD COUNT 4132192 RBC 4.36 10e12/L 2018 Unknown COMPLETE BLOOD COUNT 7017906 HEMOGLOBIN 12.9 g/dL 07/05/19 19 Unknown COMPLETE BLOOD COUNT 2932805 HEMATOCRIT 39.1 % 07/05/19 19 Unknown COMPLETE BLOOD COUNT 5142217 MCV 89.7 fL 9 Unknown COMPLETE BLOOD COUNT [id number] MCH 29.6 pg 9 Unknown COMPLETE BLOOD COUNT 4856898 MCHC 33.0 g/dL 9 Unknown COMPLETE BLOOD COUNT 1603584 PLATELET COUNT 270 10e9/L Unknown COMPLETE BLOOD COUNT 5028586 Mean Plt Volume 9.0 fL Unknown COMPLETE BLOOD COUNT 3004862 Neut Auto 53.8 % 9 Unknown COMPLETE BLOOD COUNT [id number] Lymph Auto 35.8 % 07/05/19 19 Unknown COMPLETE BLOOD COUNT 3250543 Mclean Auto 7.9 % 9 Unknown COMPLETE BLOOD COUNT 7644685 RDW 13.9 % 9 Unknown COMPLETE BLOOD COUNT 0013816 Eos Auto 2.0 % 9 Unknown COMPLETE BLOOD COUNT 7960378 Baso Auto 0.5 % 9 Unknown COMPLETE BLOOD COUNT 8244066 Neutrophil Abs 3.23 10e9/L Unknown COMPLETE BLOOD COUNT 6894646 Lymphocyte Abs 2.15 10e9/L Unknown COMPLETE BLOOD COUNT 4521992 Monocyte Abs 0.47 10e9/L 06/18 Unknown COMPLETE BLOOD COUNT 6218057 Eosinophil Abs 0.12 10e9/L Unknown COMPLETE BLOOD COUNT 0671458 RDW-SD 44.5 fL 9 Unknown COMPLETE BLOOD COUNT 0942607 Basophil Abs 0.03 10e9/L 06/18 Unknown FREE T4 29978 T4 Free 1.21 ng/dL 06/30/2017 Unknown GFR CALC 6045183 GFR Non Afr Amr >60 mL/min 06/30/2017 Un known GFR CALC 8810060 GFR Afr Amr >60 mL/min 06/30/2017 Unknow n THYROID STIMULATING HORMONE 80878 TSH 0.873 uIU/mL 06/30/2017 Unknown [facility] 07213 Cholesterol 175 mg/dL 06/30/2017 Unkno wn [facility] 76252 Triglyceride 129 mg/dL 06/30/2017 Unkn own [facility] 49703 HDL CHOLESTEROL 51 06/30/2017 U nknown [facility] 26638 Chol/HDL Ratio 3.43 ratio 06/30/2017 U nknown [facility] 04446 NON-HDL Chol 124 mg/dL 06/30/2017 Unkn own [facility] 43872 LDL Cholesterol 98 mg/dL 06/30/2017 U nknown COMPLETE BLOOD COUNT 0192322 WBC 6.2 10e9/L 06/30/19 18 Unknown COMPLETE BLOOD COUNT 4916538 RBC 4.58 10e12/L 2017 Unknown COMPLETE BLOOD COUNT 9477325 HEMOGLOBIN 13.3 g/dL 06/30/19 18 Unknown COMPLETE BLOOD COUNT 9882970 HEMATOCRIT 41.6 % 06/30/19 18 Unknown COMPLETE BLOOD COUNT 8033331 MCV 90.8 fL 8 Unknown COMPLETE BLOOD COUNT 3230557 MCH 29.0 pg 8 Unknown COMPLETE BLOOD COUNT 3022174 MCHC 32.0 g/dL 8 Unknown COMPLETE BLOOD COUNT 3746114 PLATELET COUNT 271 10e9/L Unknown COMPLETE BLOOD COUNT 5571760 Mean Plt Volume 8.9 fL Unknown COMPLETE BLOOD COUNT 5604083 Neut Auto 53.5 % 8 Unknown COMPLETE BLOOD COUNT 8621212 Lymph Auto 36.4 % 06/30/19 18 Unknown COMPLETE BLOOD COUNT 8735105 Mclean Auto 8.1 % 8 Unknown COMPLETE BLOOD COUNT 1039298 RDW 13.4 % 8 Unknown COMPLETE BLOOD COUNT 6901772 Eos Auto 1.5 % 8 Unknown COMPLETE BLOOD COUNT 6829352 Baso Auto 0.5 % 8 Unknown COMPLETE BLOOD COUNT 5868414 Neutrophil Abs 3.32 10e9/L Unknown COMPLETE BLOOD COUNT 5255987 Lymphocyte Abs 2.26 10e9/L Unknown COMPLETE BLOOD COUNT 9215650 Monocyte Abs 0.50 10e9/L 06/18 Unknown COMPLETE BLOOD COUNT 8818137 Eosinophil Abs 0.09 10e9/L Unknown COMPLETE BLOOD COUNT 9478246 RDW-SD 43.9 fL 8 Unknown COMPLETE BLOOD COUNT 7587287 Basophil Abs 0.03 10e9/L 06/18 Unknown COMPREHENSIVE METABOLIC 78064 AST 19 U/L 2017 Unknown COMPREHENSIVE METABOLIC 14926 ALT 22 U/L 2017 Unknown COMPREHENSIVE METABOLIC 74991 BUN 12 mg/dL 2017 Unknown COMPREHENSIVE METABOLIC 22721 ALBUMIN 4.9 g/dL 2017 Unknown COMPREHENSIVE METABOLIC 44614 CHLORIDE 106 mmol/L 06/30 Unknown COMPREHENSIVE METABOLIC 26366 Bili Total 0.4 mg/dL 06/30 Unknown COMPREHENSIVE METABOLIC 87126 ALK PHOS 66 U/L 2017 Unknown COMPREHENSIVE METABOLIC 28869 SODIUM 143 mmol/L 06/30 Unknown COMPREHENSIVE METABOLIC 00527 CREATININE 0.71 mg/dL 06/18 Unknown COMPREHENSIVE METABOLIC 18351 CALCIUM 9.9 mg/dL 2017 Unknown COMPREHENSIVE METABOLIC 55498 POTASSIUM 4.1 mmol/L 06/30 Unknown COMPREHENSIVE METABOLIC 75266 Total Protein 8.0 g/dL Unknown COMPREHENSIVE METABOLIC 36172 Glucose 87 mg/dL 2017 Unknown COMPREHENSIVE METABOLIC 89028 Bicarbonate 27 mmol/L 06/18 Unknown COMPREHENSIVE METABOLIC 26651 AGAP 10 mmol/L 2017 Unknown GFR CALC 0354284 GFR AA >60 ML/MIN 12/19/2013 Unknown GFR CALC 6086643 GFR NON-AA >60 ML/MIN 12/19/2013 Unknown [facility] 39174 HDL TEST 52 MG/DL 12/19/2013 Unknown [facility] 66017 TRIG 96 MG/DL 12/19/2013 Unknown [facility] 88714 TEST LDL 98 MG/DL 12/19/2013 Unknown [facility] 11535 CHOL 169 MG/DL 12/19/2013 Unknown [facility] GROUP 87526 RCHOL/HDL 3.25 RATIO 12/19/2013 Unknow n [facility] 35120 NON-HDL CH 117 MG/DL 12/19/2013 Unknow n COMPLETE BLOOD COUNT 7543406 WBC 5.6 10e9/L 12/20/19 14 Unknown COMPLETE BLOOD COUNT 3809533 RBC 4.45 10e12/L 2013 Unknown COMPLETE BLOOD COUNT 3026408 HGB 13.0 g/dL 4 Unknown COMPLETE BLOOD COUNT 0132568 HCT DET 39.9 % 4 Unknown COMPLETE BLOOD COUNT 5343135 MCV 89.7 fL 4 Unknown COMPLETE BLOOD COUNT 2546539 MCH 29.2 pg 4 Unknown COMPLETE BLOOD COUNT 3818954 MCHC 32.6 g/dL 4 Unknown COMPLETE BLOOD COUNT 6737145 PLT 244 10e9/L 12/20/19 14 Unknown COMPLETE BLOOD COUNT 3971500 MPV 9.4 fL 4 Unknown COMPLETE BLOOD COUNT 6223112 PABLITO % 58.5 % 4 Unknown COMPLETE BLOOD COUNT 1945877 LY % 30.8 % 4 Unknown COMPLETE BLOOD COUNT 0091100 MON % 8.2 % 4 Unknown COMPLETE BLOOD COUNT 8015193 EOS % 2.0 % 4 Unknown COMPLETE BLOOD COUNT 5822979 BASO % 0.5 % 4 Unknown COMPLETE BLOOD COUNT 5224865 RDW 13.6 % 4 Unknown COMPLETE BLOOD COUNT 8779203 ABS PABLITO 3.28 10e9/L 014 Unknown COMPLETE BLOOD COUNT 2791330 ABS LYMPH 1.72 10e9/L 014 Unknown COMPLETE BLOOD COUNT 5619794 ABS MONO 0.46 10e9/L 014 Unknown COMPLETE BLOOD COUNT 8092720 ABS EOS 0.11 10e9/L 014 Unknown COMPLETE BLOOD COUNT 4558655 ABS BASO 0.03 10e9/L 014 Unknown COMPLETE BLOOD COUNT 2347076 RDW-SD 43.6 fL 4 Unknown FREE T4 83837 FREE T4 1.26 NG/DL 12/19/2013 Unknown COMPREHENSIVE METABOLIC 24021 AST 18 U/L 2013 Unknown COMPREHENSIVE METABOLIC 86295 ALT 22 IU/L 2013 Unknown COMPREHENSIVE METABOLIC 44388 BUN 11 MG/DL 2013 Unknown COMPREHENSIVE METABOLIC 31111 ALBUMIN 4.7 GM/DL 2013 Unknown COMPREHENSIVE METABOLIC 37572 CHLORIDE 108 MMOL/L 12/19 Unknown COMPREHENSIVE METABOLIC 51232 BILI TOT 0.3 MG/DL 2013 Unknown COMPREHENSIVE METABOLIC 09202 ALK PHOS 67 U/L 2013 Unknown COMPREHENSIVE METABOLIC 08610 SODIUM 141 MMOL/L 12/19 Unknown COMPREHENSIVE METABOLIC 09948 CREATININE 0.67 MG/DL 08/2013 Unknown COMPREHENSIVE METABOLIC 52804 CALCIUM 9.4 MG/DL 2013 Unknown COMPREHENSIVE METABOLIC 58819 POTASSIUM 4.1 MMOL/L 12/19 Unknown COMPREHENSIVE METABOLIC 79159 PROT TOT 7.0 GM/DL 2013 Unknown COMPREHENSIVE METABOLIC 87720 Glucose 94 MG/DL 2013 Unknown COMPREHENSIVE METABOLIC 30556 BICARB 27 MMOL/L 2013 Unknown COMPREHENSIVE METABOLIC 30434 ANION GAP 6 MEQ/L 2013 Unknown THYROID STIMULATING HORMONE 71605 TSH 0.547 uIU/ML 12/19/2013 Unknown GFR CALC 3920800 GFR AA >60 ML/MIN 02/03/2011 Unknown GFR CALC 2594793 GFR NON-AA >60 ML/MIN 02/03/2011 Unknown THYROID STIMULATING HORMONE 53722 TSH 0.818 uIU/ML 02/03/2011 Unknown COMPLETE BLOOD COUNT 60552 WBC 7.7 10e9/L 02/04/20 11 Unknown COMPLETE BLOOD COUNT 62164 RBC 4.23 10e12/L 2010 Unknown COMPLETE BLOOD COUNT 67548 HGB 11.9 g/dL 1 Unknown COMPLETE BLOOD COUNT 68985 HCT DET 36.5 % 1 Unknown COMPLETE BLOOD COUNT 50386 MCV 86.3 fL 1 Unknown COMPLETE BLOOD COUNT 70657 MCH 28.1 pg 1 Unknown COMPLETE BLOOD COUNT 43449 MCHC 32.6 g/dL 1 Unknown COMPLETE BLOOD COUNT 40506 PLT 244 10e9/L 02/04/20 11 Unknown COMPLETE BLOOD COUNT 45149 MPV 8.7 fL 1 Unknown COMPLETE BLOOD COUNT 53267 PABLITO % 58.9 % 1 Unknown COMPLETE BLOOD COUNT 05222 LY % 31.1 % 1 Unknown COMPLETE BLOOD COUNT 14473 MON % 7.9 % 1 Unknown COMPLETE BLOOD COUNT 98593 EOS % 1.8 % 1 Unknown COMPLETE BLOOD COUNT 94456 BASO % 0.3 % 1 Unknown COMPLETE BLOOD COUNT 13225 RDW 14.7 % 1 Unknown COMPLETE BLOOD COUNT 06715 ABS PABLITO 4.54 10e9/L 011 Unknown COMPLETE BLOOD COUNT 16135 ABS LYMPH 2.39 10e9/L 011 Unknown COMPLETE BLOOD COUNT 31866 ABS MONO 0.61 10e9/L 011 Unknown COMPLETE BLOOD COUNT 76052 ABS EOS 0.14 10e9/L 011 Unknown COMPLETE BLOOD COUNT 61649 ABS BASO 0.02 10e9/L 011 Unknown COMPLETE BLOOD COUNT 35090 RDW-SD 45.1 fL 1 Unknown COMPREHENSIVE METABOLIC 44392 AST 16 U/L 2010 Unknown COMPREHENSIVE METABOLIC 75401 ALT 21 IU/L 2010 Unknown COMPREHENSIVE METABOLIC 30268 BUN 9 MG/DL 2010 Unknown COMPREHENSIVE METABOLIC 90228 ALBUMIN 4.5 GM/DL 2010 Unknown COMPREHENSIVE METABOLIC 10844 CHLORIDE 104 MMOL/L 02/03 Unknown COMPREHENSIVE METABOLIC 07077 BILI TOT 0.2 MG/DL 2010 Unknown COMPREHENSIVE METABOLIC 87689 ALK PHOS 65 U/L 2010 Unknown COMPREHENSIVE METABOLIC 93008 SODIUM 137 MMOL/L 02/03 Unknown COMPREHENSIVE METABOLIC 80402 CREATININE 0.64 MG/DL 01/16 Unknown COMPREHENSIVE METABOLIC 45375 CALCIUM 8.8 MG/DL 2010 Unknown COMPREHENSIVE METABOLIC 74596 POTASSIUM 3.8 MMOL/L 02/03 Unknown COMPREHENSIVE METABOLIC 61854 PROT TOT 6.7 GM/DL 2010 Unknown COMPREHENSIVE METABOLIC 58607 Glucose 88 MG/DL 2010 Unknown COMPREHENSIVE METABOLIC 89107 BICARB 26 MMOL/L 2010 Unknown COMPREHENSIVE METABOLIC 24949 ANION GAP 7 MEQ/L 2010 Unknown FREE T4 69359 FREE T4 1.24 NG/DL 02/03/2011 Unknown Procedures Procedure Codes Date CEFTRIAXONE SODIUM INJECTION CPT-4: J0696 05/02/2019 THER/PROPH/DIAG INJ SC/IM CPT-4: 94125 05/02/2019 DEXAMETHASONE SODIUM PHOS CPT-4: J1100 10/19/2018 THER/PROPH/DIAG INJ SC/IM CPT-4: 08418 10/19/2018 URINE CULTURE/ COLONY COUNT CPT-4: 04749 10/19/2018 URINALYSIS NONAUTO W/O SCOPE CPT-4: 48805 10/19/2018 THROAT CULTURE CPT-4: 19343 07/29/2018 STREP A ASSAY W/OPTIC CPT-4: 37591 07/26/2018 SPECIMEN HANDLING OFFICE-LAB CPT-4: 76586 07/06/2018 OCCULT BLOOD FECES CPT-4: 59366 07/06/2018 ROUTINE VENIPUNCTURE CPT-4: 07330 12/19/2013 ASSAY OF FREE THYROXINE CPT-4: 57364 12/19/2013 ASSAY THYROID STIM HORMONE CPT-4: 05248 12/19/2013 COMPREHEN METABOLIC PANEL CPT-4: 36864 12/19/2013 COMPLETE CBC W/AUTO DIFF WBC CPT-4: 23244 12/19/2013 LIPID PANEL CPT-4: 62015 12/19/2013 OCCULT BLOOD FECES CPT-4: 64948 02/03/2011 SPECIMEN HANDLING OFFICE-LAB CPT-4: 36762 12/25/2009 OCCULT BLOOD FECES CPT-4: 82392 12/25/2009 Vital Signs Date Vital 05/02/2019 Blood [...] 1: 130/78 Code: 8480-6 BMI: 30.7 Code: 26573-8 Heart Rate 1: 76 bpm Height: 5'9" Respiratory Rate: 20 bpm Temperature: 36 .8 (C) / 98.3 (F) Weight: 208 lbs 06/30/2017 Blood Pressure 1: 126/80 Code: 8480-6 BMI: 30.9 Code: 57414-4 Heart Rate 1: 72 bpm Height: 5'9" Respiratory Rate: 20 bpm Temperature: 36 .7 (C) / 98.0 (F) Weight: 209 lbs 02/04/2016 Blood Pressure 1: 122/80 Code: 8480-6 BMI: 31.3 Code: 36000-0 Heart Rate 1: 80 bpm Height: 5'9" Respiratory Rate: 20 bpm Temperature: 36 .6 (C) / 97.8 (F) Weight: 212 lbs 12/19/2013 Blood Pressure 1: 116/78 Code: 8480-6 BMI: 30.1 Code: 20380-4 Heart Rate 1: 76 bpm Height: 5'9" Respiratory Rate: 20 bpm Temperature: 36 .8 (C) / 98.3 (F) Weight: 204 lbs 10/27/2012 Blood Pressure 1: 114/70 Code: 8480-6 BMI: 30.3 Code: 32205-3 Heart Rate 1: 68 bpm Height: 5'9" Respiratory Rate: 20 bpm Temperature: 36 .8 (C) / 98.3 (F) Weight: 205 lbs 09/01/2012 Blood Pressure 1: 118/82 Code: 8480-6 BMI: 30.9 Code: 92954-1 Heart Rate 1: 80 bpm Height: 5'9" Respiratory Rate: 20 bpm Temperature: 36 .8 (C) / 98.2 (F) Weight: 209 lbs 02/03/2011 Blood Pressure 1: 118/76 Code: 8480-6 BMI: 29.5 Code: 34138-0 Heart Rate 1: 72 bpm Height: 5'9" Weight: 200 lbs 12/25/2009 Blood Pressure 1: 122/76 Code: 8480-6 BMI: 29.5 Code: 02005-3 Heart Rate 1: 80 bpm Height: 5'9" [...] 11/24 Encounters Encounter Performer Location Codes Date ([id number]) OFFICE/OUTPATIENT VISIT EST Diagnosis: Cellulitis of right breast[ICD10: N61.0] Meghan BELLAMY [facility] CPT-4: 15934 05/02/2019 ([id number]) OFFICE/OUTPATIENT VISIT EST Diagnosis: Edema, unspecified[ICD10: R60.9] Diagnosis: Adverse effect of unspecified drugs, medicaments and biological substances, initial encounter[ICD10: T50.905A] Diagnosis: Gross hematuria[ICD10: R31.0] Meghan BELLAMY [facility] CPT-4: 64921 10/19/2018 ([id number]) OFFICE/OUTPATIENT VISIT EST Diagnosis: URI, ACUTE[ICD10: J06.9] Meghan SolisKya YAMILETH ROLLINS [facility] CPT-4: 73535 07/29/2018 ([id number]) OFFICE/OUTPATIENT VISIT EST Diagnosis: Acute pharyngitis, unspecified[ICD10: J02.9] Diagnosis: URI, ACUTE[ICD10: J06.9] Meghan SolisKya YAMILETH RIA [facility] CPT-4: 94463 07/26/2018 ([id number]) PREV VISIT EST AGE 40-64 Diagnosis: Encounter for general adult medical examination without abnormal findings[ICD10: Z00.00] Diagnosis: Encounter for gynecological examination (general) (routine) without abnormal findings[ICD10: Z01.419] Diagnosis: Menopausal and female climacteric states[ICD10: N95.1] Diagnosis: Other abnormal and inconclusive findings on diagnostic imaging of breast[ICD10: R92.8] Meghan Angelitobradlupe PEREZMEGHAN IrmaKya ANGELITOBRADLUPE [facility] CPT-4: 60842 07/06/2018 ([id number]) PREV VISIT EST AGE 40-64 Diagnosis: Encounter for general adult medical examination without abnormal findings[ICD10: Z00.00] Diagnosis: Encounter for gynecological examination (general) (routine) without abnormal findings[ICD10: Z01.419] Meghan Angelitobradlupe MEGHAN IrmaKya ANGELITOFACUNDO Lund [facility] CPT-4: 22755 06/30/2017 ([id number]) PREV VISIT EST AGE 40-64 Diagnosis: Encounter for general adult medical examination without abnormal findings[ICD10: Z00.00] Meghan BELLAMY IrmaKya ANGELITOBRADLUPE GOMEZ [facility] CPT-4: 37432 02/04/2016 ([id number]) PREV VISIT EST AGE 40-64 Diagnosis: ROUTINE MEDICAL EXAM[ICD9: V70.0] Diagnosis: MENOPAUSAL DISORDER[ICD9: 627.9] Meghan BELLAMY IrmaKya DEL ROSARIO [facility] CPT-4: 53369 12/19/2013 OFFICE/OUTPATIENT VISIT EST Diagnosis: MENOPAUSAL DISORDER[ICD9: 627.9] Meghan BELLAMY IrmaKya DEL ROSARIO [facility] [address] CPT-4: 81389 10/27/2012 ([id number]) PREV VISIT EST AGE 40-64 Diagnosis: ROUTINE MEDICAL EXAM[ICD9: V70.0] Diagnosis: MENOPAUSAL DISORDER[ICD9: 627.9] Meghan DEL ROSARIO DO [facility] CPT-4: 28455 09/01/2012 PREV VISIT EST AGE 40-64 Diagnosis: ROUTINE GYNE EXAM[ICD9: V72.31] Diagnosis: ROUTINE MEDICAL EXAM[ICD9: V70.0] Meghan DEL ROSARIO DO [facility] CPT-4: 91551 02/03/2011 SPECIMEN HANDLING Diagnosis: [ICD9: ] Diagnosis: [ICD9: ] Meghan DEL ROSARIO DO [facility] CPT-4: 9900 0 02/03/2011 ([id number]) PREV VISIT, EST, AGE 40-64 Meghan DEL ROSARIO DO [facility] CPT-4: 11442 12/25/2009 Plan of Care Planned Activity Notes Codes Status Date Visit Diagnosis Plan: Cellulitis of right breast Discu ssion: Rocephin 1gm IM now Start clindamycin with a probiotic Recheck tomorrow ICD-9 : 611.0 ICD-10 : N61.0 05/02/2019 Patient Education: clindamycin HCl- [employer] Coupon [id number] [email or web address] Completed 05/02/2019 Care Plan: TRANSVAGINAL US NON-OB [facility] : 41406-1 Pending 10/21/2018 [facility] [phone] [id number] [facility] 10/20/2018 Visit Diagnosis Plan: [...] ICD-10 : R60.9 10/19/2018 Appointment: Meghan Del Rosario WPtel: [address] [place], [place] [phone] 10/19/2018 Appointment: Meghan Del Rosario WPtel: [address] [place], [place] [phone] US Per DR ROBERTSON 08/02/2018 Visit Diagnosis Plan: URI, ACUTE Discussion: CXR negat johnna Lungs clear Only physical exam finding is injection on throat and mild fluid behind ears Will increase zyrtec to BID Throat Culture Notify surgeon of current course ICD-9 : 465.9 ICD-10 : J06.9 07/29/2018 Appointment: Meghan Del Rosario WPtel: [address] [place], [place] [phone] WORK IN 07/29/2018 Visit Diagnosis Plan: Acute pharyngitis, unspecified D iscussion: Strep Negative Cover with Zithromax with upcoming surgery next week but if worsens will let us know and will have to postpone surgery ICD-9 : 462 ICD-10 : J02.9 07/26/2018 Visit NOS Plan: Plan Notes: Supportive care. Rest, Fluids... 07/26/2018 Appointment: Meghan Del Rosario WPtel: [address] [place], [place] [phone] ACUTE ILLNESS 07/26/2018 Visit Diagnosis Plan: Encounter [...] N95.1 07/06/2018 Appointment: Meghan Del Rosario WPtel: [address] [place], [place] [phone] US PAP 07/06/2018 Care Plan: MAMMOGRAM BOTH BREASTS Diagnostic Mammogram of [place] Breast LOINC : 23910-4 Pending 06/24/2018 Care Plan: US EXAM CHEST [...] : V72.31 ICD-10 : Z01.419 06/30/2017 Appointment: Meghna Del Rosario WPtel: [address] [place], [place] [phone] US PAP 06/30/2017 Patient Education: Patient Medication Summary Completed 06/30/2017 Visit Plan: Update fasting lab Pap done Had mammogram Weight bearing exercise 02/04/2016 Appointment: Meghan Del Rosario WPtel: [address] [place], [place] [phone] [place] 01/30 confirmed~sl PAP 02/04/2016 Patient Education: Patient Medication Summary Completed 02/04/2016 Appointment: Meghan Del Rosario WPtel: [address] [place], [place] [phone] US RESCHEDULED 01/17/2016 Patient Education: Patient Medication Summary Completed 12/31/2015 Care Plan: MAMMOGRAM SCREENING LOINC : 2 6347-5 Pending 12/31/2015 Visit Plan: Try to decrease fluoxetine t o 10mg daily Check Mammo Check fasting lab Check Colonoscopy due to family hx of Colon Cancer 12/19/2013 Appointment: Meghan Del Rosario WPtel: [id number] [place], [place] [phone] 12/16 vm PAP 12/19/2013 Patient Education: Patient Medication Summary Completed 12/19/2013 Visit Plan: Long discussion about HRT--p t has Breast Ca on both sides--Discussed BRCA gene testing in Mom Will try higher dose of fluoxetine 10/27/2012 Appointment: Meghan Del Rosario WPtel: [address] [place] [address] FOLLOW UP 10/27/2012 Patient Education: Patient Medication Summary Completed 10/27/2012 Visit Plan: Lab discussed Add fish oil 3 grams daily Long discussion about hormones Trial of fluoxetine 09/01/2012 Appointment: Meghan Del Rosario WPtel: [address] [place], [place] [phone] PAP 09/01/2012 Patient Education: Patient Medication Summary Completed 09/01/2012 Visit Plan: Pap Done and Mammogram order ed Fasting lab ordered 02/03/2011 Appointment: Meghan Del Rosario WPtel: [address] [place], [place] [phone] [place] PAP 02/03/2011 Patient Education: Patient Medication Summary Completed 02/03/2011 Visit Plan: Pap done Mammo done last wee k Lab discussed Discussed Bioidentical Hormones 12/25/2009 Appointment: Meghan Del Rosario WPtel: [id number] [place], [place] [phone] [place] PAP 12/25/2009 Patient Education: Patient Medication Summary Completed 12/25/2009 Instructions Comment . Update fasting lab Pap done Had mammogram Weight bearing exercise . Try to decrease fluoxetine to 10mg kobe ly Check Mammo Check fasting lab Check Colonoscopy due to family hx of Colon Cancer . Long discussion about HRT--pt has [facility] st Ca on both sides--Discussed BRCA gene [...]
--- OUTSIDE RECORDS SUMMARY | 2019-05-15 23:45 | XMS REPORT | CCD ---
Author Author Caridad Del Rosario D.O. 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 Name Role Phone PP Unavailable CCM Unavailable Summary Purpose Interface Exchange Insurance Providers Payer name Policy type / Coverage type Covered alliance party ID Effective Begin Date Effective End Date [facility] Commercial Insurance [id number] Un known Family History Family History data [...] Instructions clindamycin HCl 300 mg capsule RxNorm: 007233 1 Capsule (s) Oral three times a day 05/02/2019 05/09/2019 Active fluoxetine 20 mg tablet RxNorm: 808244 1 Tablet(s) Oral QD 03/29/20 19 09/24/2019 Active Zithromax Z-Khoi 250 mg tablet RxNorm: 346408 Tablet(s) Oral as directed 03/25/2019 03/25/2019 Inactive Zithromax Z-Khoi 250 mg tablet RxNorm: 526687 Tablet(s) Oral as directed 03/25/2019 03/24/2019 Inactive famotidine 20 mg tablet RxNorm: 130494 1 Tablet(s) PO BID 10/19/2018 02/15/2019 Inactive Tessalon Perles 100 mg capsule RxNorm: 994879 1 Capsule (s) PO TID as needed for cough 07/26/2018 10/18/2018 Inactive Zithromax 500 mg tablet RxNorm: 271237 1 Tablet(s) PO QD 07/26/2018 0 07/25/2018 Inactive Zithromax 500 mg tablet RxNorm: 824372 1 Tablet(s) PO QD 07/26/2018 0 07/30/2018 Inactive Xanax 0.25 mg tablet RxNorm: 208496 1/2-1 Tablet(s) PO BID 06/01/19 19 No Stop Date Active fluoxetine 20 mg tablet RxNorm: 607663 1 Tablet(s) PO Q D Due for annual appointment in 06/01/2018 02/25/2019 Inactive fluoxetine 20 mg tablet RxNorm: 906419 1 Tablet(s) PO Q D Due for annual in [facility] 06/01/2018 02/25/2019 Inactive fluoxetine 20 mg tablet RxNorm: 290008 1 Tablet(s) PO QD 08/05/2017 1 07/02/2017 Inactive fluoxetine 20 mg tablet RxNorm: 187455 1 Tablet(s) PO QD 08/04/2017 0 08/04/2017 Inactive Xanax 0.25 mg tablet RxNorm: 870211 1/2-1 Tablet(s) PO BID 07/02/19 18 05/31/2018 Inactive fluoxetine 10 mg capsule RxNorm: 878737 2 Capsule(s) PO QAM 018 07/05/2018 Inactive Generic For:PROZAC 10 MG PUL VULE 09/24/2015 10:15:02 AM N O T I C E Last quantity doesn't match original quantity fluoxetine 10 mg capsule RxNorm: 032937 2 Capsule(s) PO QAM Routine wellness due after 02-04-17 12/03/2016 03/02/2017 Inactive Generic For:PROZ AC 10 MG PULVULE 09/24/2015 10:15:02 AM N O T I C E Last quantity doesn't match original quantity Xanax 0.25 mg tablet RxNorm: 235479 1/2-1 Tablet(s) PO BID 02/05/20 16 07/01/2017 Inactive fluoxetine 10 mg capsule RxNorm: 443261 2 Capsule(s) PO QAM 016 07/25/2018 Inactive fluoxetine 10 mg capsule RxNorm: 611310 2 Capsule(s) PO QAM 016 12/03/2016 Inactive Generic For:PROZAC 10 MG PUL VULE 09/24/2015 10:15:02 AM N O T I C E Last quantity doesn't match original quantity fluoxetine 10 mg capsule RxNorm: 084559 2 Capsule(s) PO QAM TAKE 2 CAPSULES BY MOUTH EVERY MORNING 11/16/2015 02/03/2016 Inactive Generic For: PROZAC 10 MG PULVULE 09/24/2015 10:15:02 AM N O T I C E Last quantity doesn't match original quantity fluoxetine 10 mg capsule RxNorm: 413527 2 Capsule(s) PO QAM TAKE 2 CAPSULES BY MOUTH EVERY MORNING 09/24/2015 11/15/2015 Inactive Generic For: PROZAC 10 MG PULVULE 09/24/2015 10:15:02 AM N O T I C E Last quantity doesn't match original quantity fluoxetine 10 mg capsule RxNorm: 462380 2 Capsule(s) PO QAM 015 09/24/2015 Inactive fluoxetine 10 mg capsule RxNorm: 919384 2 Capsule(s) PO QAM 015 07/28/2018 Inactive fluoxetine 10 mg capsule RxNorm: 693894 2 Capsule(s) PO QAM 014 05/21/2014 Inactive Xanax 0.25 mg tablet RxNorm: 037114 1/2-1 Tablet(s) PO BID 04/21/20 13 No Stop Date Active fluoxetine 10 mg capsule RxNorm: 446267 2 Capsule(s) PO QAM 013 01/24/2013 Inactive fluoxetine 10 mg capsule RxNorm: 377810 1 Capsule(s) PO QAM 013 10/26/2012 Inactive Multivitamin & Mineral Formula Tab RxNorm: 1 Tablet(s) PO QD No St art Date Active Zyrtec 10 mg tablet RxNorm: 7285446 1 Tablet(s) PO BID No Start Date Active Prilosec OTC 20 mg tablet,delayed release RxNorm: 241642 1 Tabl et(s) PO QD No Start Date Active Tessalon Perles 100 mg capsule RxNorm: 944746 1 Capsule (s) PO TID as needed for cough No Start Date 07/25/2018 Inactive Biotin Oral RxNorm: Oral No Start Date 10/18/2018 Inactive Zithromax Z-Khoi oral RxNorm: 64232 oral No Start Date 03/24/2019 Inactive Echinacea ACZ oral RxNorm: oral No Start Date 07/28/2018 Inacti ve Vitamin D3 1000 units Capsule RxNorm: 1 Capsule(s) PO QD No St art Date 07/28/2018 Inactive Black Cohosh Oral RxNorm: Oral No Start Date 07/28/2018 Inactiv e Xanax 0.25 mg tablet RxNorm: 644492 1/2-1 Tablet(s) PO BID No Start Date 04/20/2013 Inactive Zyrtec 10 mg tablet RxNorm: 6080772 1 Tablet(s) PO QD as needed No Start Date 10/18/2018 Inactive Vitamin C 1,000 mg tablet RxNorm: 293718 1 Tablet(s) PO QD No Start Date 10/18/2018 Inactive fluoxetine 20 mg tablet RxNorm: 456134 1 Tablet(s) PO QD No Start D ate 08/03/2017 Inactive Medication Administered No Medication Administered data Immunizations Vaccine Codes Date Status Influenza CVX: 141 04/08/2019 Influenza CVX: 141 04/26/2018 Results Observation Observation Code Item Item Code Result Date S ervice Location CULTURE, URINE, ROUTINE 395 CULTURE, URINE, ROUTINE 10/20/2018 [facility] [address] [place] [address] GFR CALC 7530203 GFR Non Afr Amr >60 mL/min 07/05/2018 Un known GFR CALC 8860400 GFR Afr Amr >60 mL/min 07/05/2018 Unknow n FREE T4 76050 T4 Free 0.94 ng/dL 07/05/2018 Unknown [facility] 90815 Cholesterol 165 mg/dL 07/05/2018 Unkno wn [facility] 42527 Triglyceride 108 mg/dL 07/05/2018 Unkn own [facility] 27705 HDL CHOLESTEROL 50 mg/dL 07/05/2018 U nknown [facility] 19135 Chol/HDL Ratio 3.30 ratio 07/05/2018 U nknown [facility] 81559 NON-HDL Chol 115 mg/dL 07/05/2018 Unkn own [facility] 07122 LDL Cholesterol 93 mg/dL 07/05/2018 U nknown THYROID STIMULATING HORMONE 85300 TSH 0.937 uIU/mL 07/05/2018 Unknown COMPREHENSIVE METABOLIC 83986 AST 19 U/L 2018 Unknown COMPREHENSIVE METABOLIC 56839 ALT 21 U/L 2018 Unknown COMPREHENSIVE METABOLIC 36778 BUN 10 mg/dL 2018 Unknown COMPREHENSIVE METABOLIC 17226 ALBUMIN 4.3 g/dL 2018 Unknown COMPREHENSIVE METABOLIC 43694 CHLORIDE 106 mmol/L 07/05 Unknown COMPREHENSIVE METABOLIC 52011 Bili Total 0.3 mg/dL 07/05 Unknown COMPREHENSIVE METABOLIC 08850 ALK PHOS 59 U/L 2018 Unknown COMPREHENSIVE METABOLIC 82069 SODIUM 140 mmol/L 07/05 Unknown COMPREHENSIVE METABOLIC 35733 CREATININE 0.68 mg/dL 06/18 Unknown COMPREHENSIVE METABOLIC 52360 CALCIUM 9.2 mg/dL 2018 Unknown COMPREHENSIVE METABOLIC 58440 POTASSIUM 4.0 mmol/L 07/05 Unknown COMPREHENSIVE METABOLIC 34178 Total Protein 7.1 g/dL Unknown COMPREHENSIVE METABOLIC 37680 Glucose 84 mg/dL 2018 Unknown COMPREHENSIVE METABOLIC 22203 Bicarbonate 27 mmol/L 06/18 Unknown COMPREHENSIVE METABOLIC 05390 AGAP 7 mmol/L 2018 Unknown COMPLETE BLOOD COUNT 8706152 WBC 6.0 10e9/L 07/05/19 19 Unknown COMPLETE BLOOD COUNT [id number] RBC 4.36 10e12/L 2018 Unknown COMPLETE BLOOD COUNT 7160606 HEMOGLOBIN 12.9 g/dL 07/05/19 19 Unknown COMPLETE BLOOD COUNT 9641351 HEMATOCRIT 39.1 % 07/05/19 19 Unknown COMPLETE BLOOD COUNT 5860009 MCV 89.7 fL 9 Unknown COMPLETE BLOOD COUNT 9815746 MCH 29.6 pg 9 Unknown COMPLETE BLOOD COUNT 9109089 MCHC 33.0 g/dL 9 Unknown COMPLETE BLOOD COUNT 5803903 PLATELET COUNT 270 10e9/L Unknown COMPLETE BLOOD COUNT 2238001 Mean Plt Volume 9.0 fL Unknown COMPLETE BLOOD COUNT 5935367 Neut Auto 53.8 % 9 Unknown COMPLETE BLOOD COUNT 9099065 Lymph Auto 35.8 % 07/05/19 19 Unknown COMPLETE BLOOD COUNT 5214020 [place] Auto 7.9 % 9 Unknown COMPLETE BLOOD COUNT 8582161 RDW 13.9 % 9 Unknown COMPLETE BLOOD COUNT 3419788 Eos Auto 2.0 % 9 Unknown COMPLETE BLOOD COUNT 1322522 Baso Auto 0.5 % 9 Unknown COMPLETE BLOOD COUNT 9370138 Neutrophil Abs 3.23 10e9/L Unknown COMPLETE BLOOD COUNT 3183203 Lymphocyte Abs 2.15 10e9/L Unknown COMPLETE BLOOD COUNT 2395747 Monocyte Abs 0.47 10e9/L 06/18 Unknown COMPLETE BLOOD COUNT 3493232 Eosinophil Abs 0.12 10e9/L Unknown COMPLETE BLOOD COUNT 5600298 RDW-SD 44.5 fL 9 Unknown COMPLETE BLOOD COUNT 7570363 Basophil Abs 0.03 10e9/L 06/18 Unknown FREE T4 38806 T4 Free 1.21 ng/dL 06/30/2017 Unknown GFR CALC 7132057 GFR Non Afr Amr >60 mL/min 06/30/2017 Un known GFR CALC 9562848 GFR Afr Amr >60 mL/min 06/30/2017 Unknow n THYROID STIMULATING HORMONE 52442 TSH 0.873 uIU/mL 06/30/2017 Unknown [facility] 59157 Cholesterol 175 mg/dL 06/30/2017 Unkno wn [facility] 11573 Triglyceride 129 mg/dL 06/30/2017 Unkn own [facility] 44648 HDL CHOLESTEROL 51 06/30/2017 U nknown [facility] 81617 Chol/HDL Ratio 3.43 ratio 06/30/2017 U nknown [facility] 91279 NON-HDL Chol 124 mg/dL 06/30/2017 Unkn own [facility] 08661 LDL Cholesterol 98 mg/dL 06/30/2017 U nknown COMPLETE BLOOD COUNT 8637433 WBC 6.2 10e9/L 06/30/19 18 Unknown COMPLETE BLOOD COUNT 7889299 RBC 4.58 10e12/L 2017 Unknown COMPLETE BLOOD COUNT 6029374 HEMOGLOBIN 13.3 g/dL 06/30/19 18 Unknown COMPLETE BLOOD COUNT 4841604 HEMATOCRIT 41.6 % 06/30/19 18 Unknown COMPLETE BLOOD COUNT 6747340 MCV 90.8 fL 8 Unknown COMPLETE BLOOD COUNT 8165814 MCH 29.0 pg 8 Unknown COMPLETE BLOOD COUNT 8996222 MCHC 32.0 g/dL 8 Unknown COMPLETE BLOOD COUNT 1622170 PLATELET COUNT 271 10e9/L Unknown COMPLETE BLOOD COUNT 1696447 Mean Plt Volume 8.9 fL Unknown COMPLETE BLOOD COUNT 8873864 Neut Auto 53.5 % 8 Unknown COMPLETE BLOOD COUNT 8396018 Lymph Auto 36.4 % 06/30/19 18 Unknown COMPLETE BLOOD COUNT 0191039 [place] Auto 8.1 % 8 Unknown COMPLETE BLOOD COUNT 4661403 RDW 13.4 % 8 Unknown COMPLETE BLOOD COUNT 1529404 Eos Auto 1.5 % 8 Unknown COMPLETE BLOOD COUNT 9258651 Baso Auto 0.5 % 8 Unknown COMPLETE BLOOD COUNT 1015688 Neutrophil Abs 3.32 10e9/L Unknown COMPLETE BLOOD COUNT 3688633 Lymphocyte Abs 2.26 10e9/L Unknown COMPLETE BLOOD COUNT 1295780 Monocyte Abs 0.50 10e9/L 06/18 Unknown COMPLETE BLOOD COUNT 7231756 Eosinophil Abs 0.09 10e9/L Unknown COMPLETE BLOOD COUNT 8857420 RDW-SD 43.9 fL 8 Unknown COMPLETE BLOOD COUNT 6419964 Basophil Abs 0.03 10e9/L 06/18 Unknown COMPREHENSIVE METABOLIC 17332 AST 19 U/L 2017 Unknown COMPREHENSIVE METABOLIC 13073 ALT 22 U/L 2017 Unknown COMPREHENSIVE METABOLIC 72997 BUN 12 mg/dL 2017 Unknown COMPREHENSIVE METABOLIC 76079 ALBUMIN 4.9 g/dL 2017 Unknown COMPREHENSIVE METABOLIC 91531 CHLORIDE 106 mmol/L 06/30 Unknown COMPREHENSIVE METABOLIC 71042 Bili Total 0.4 mg/dL 06/30 Unknown COMPREHENSIVE METABOLIC 00577 ALK PHOS 66 U/L 2017 Unknown COMPREHENSIVE METABOLIC 93532 SODIUM 143 mmol/L 06/30 Unknown COMPREHENSIVE METABOLIC 25123 CREATININE 0.71 mg/dL 06/18 Unknown COMPREHENSIVE METABOLIC 57322 CALCIUM 9.9 mg/dL 2017 Unknown COMPREHENSIVE METABOLIC 85950 POTASSIUM 4.1 mmol/L 06/30 Unknown COMPREHENSIVE METABOLIC 65254 Total Protein 8.0 g/dL Unknown COMPREHENSIVE METABOLIC 30715 Glucose 87 mg/dL 2017 Unknown COMPREHENSIVE METABOLIC 74408 Bicarbonate 27 mmol/L 06/18 Unknown COMPREHENSIVE METABOLIC 11247 AGAP 10 mmol/L 2017 Unknown GFR CALC 6843490 GFR AA >60 ML/MIN 12/19/2013 Unknown GFR CALC 6295711 GFR NON-AA >60 ML/MIN 12/19/2013 Unknown LIPID GROUP 08411 HDL TEST 52 MG/DL 12/19/2013 Unknown [facility] GROUP 43985 TRIG 96 MG/DL 12/19/2013 Unknown [facility] GROUP 02023 TEST LDL 98 MG/DL 12/19/2013 Unknown L[facility] GROUP 42649 CHOL 169 MG/DL 12/19/2013 Unknown L[facility] GROUP 00092 RCHOL/HDL 3.25 RATIO 12/19/2013 Unknow n LIP[facility] GROUP 21760 NON-HDL CH 117 MG/DL 12/19/2013 Unknow n COMPLETE BLOOD COUNT 0372048 WBC 5.6 10e9/L 12/20/19 14 Unknown COMPLETE BLOOD COUNT 9837302 RBC 4.45 10e12/L 2013 Unknown COMPLETE BLOOD COUNT 1803686 HGB 13.0 g/dL 4 Unknown COMPLETE BLOOD COUNT 1924919 HCT DET 39.9 % 4 Unknown COMPLETE BLOOD COUNT 2205626 MCV 89.7 fL 4 Unknown COMPLETE BLOOD COUNT 2154766 MCH 29.2 pg 4 Unknown COMPLETE BLOOD COUNT 9010580 MCHC 32.6 g/dL 4 Unknown COMPLETE BLOOD COUNT 4099199 PLT 244 10e9/L 12/20/19 14 Unknown COMPLETE BLOOD COUNT 0464784 MPV 9.4 fL 4 Unknown COMPLETE BLOOD COUNT 9870398 PABLITO % 58.5 % 4 Unknown COMPLETE BLOOD COUNT 6015071 LY % 30.8 % 4 Unknown COMPLETE BLOOD COUNT 7018214 MON % 8.2 % 4 Unknown COMPLETE BLOOD COUNT 3996976 EOS % 2.0 % 4 Unknown COMPLETE BLOOD COUNT 1397256 BASO % 0.5 % 4 Unknown COMPLETE BLOOD COUNT 4214336 RDW 13.6 % 4 Unknown COMPLETE BLOOD COUNT 9787882 ABS PABLITO 3.28 10e9/L 014 Unknown COMPLETE BLOOD COUNT 4822251 ABS LYMPH 1.72 10e9/L 014 Unknown COMPLETE BLOOD COUNT 8857912 ABS MONO 0.46 10e9/L 014 Unknown COMPLETE BLOOD COUNT 1915008 ABS EOS 0.11 10e9/L 014 Unknown COMPLETE BLOOD COUNT 5089400 ABS BASO 0.03 10e9/L 014 Unknown COMPLETE BLOOD COUNT 4296698 RDW-SD 43.6 fL 4 Unknown FREE T4 71989 FREE T4 1.26 NG/DL 12/19/2013 Unknown COMPREHENSIVE METABOLIC 48819 AST 18 U/L 2013 Unknown COMPREHENSIVE METABOLIC 76001 ALT 22 IU/L 2013 Unknown COMPREHENSIVE METABOLIC 80193 BUN 11 MG/DL 2013 Unknown COMPREHENSIVE METABOLIC 17761 ALBUMIN 4.7 GM/DL 2013 Unknown COMPREHENSIVE METABOLIC 63144 CHLORIDE 108 MMOL/L 12/19 Unknown COMPREHENSIVE METABOLIC 07038 BILI TOT 0.3 MG/DL 2013 Unknown COMPREHENSIVE METABOLIC 47925 ALK PHOS 67 U/L 2013 Unknown COMPREHENSIVE METABOLIC 92354 SODIUM 141 MMOL/L 12/19 Unknown COMPREHENSIVE METABOLIC 52051 CREATININE 0.67 MG/DL 08/2013 Unknown COMPREHENSIVE METABOLIC 09898 CALCIUM 9.4 MG/DL 2013 Unknown COMPREHENSIVE METABOLIC 14181 POTASSIUM 4.1 MMOL/L 12/19 Unknown COMPREHENSIVE METABOLIC 18210 PROT TOT 7.0 GM/DL 2013 Unknown COMPREHENSIVE METABOLIC 89175 Glucose 94 MG/DL 2013 Unknown COMPREHENSIVE METABOLIC 77015 BICARB 27 MMOL/L 2013 Unknown COMPREHENSIVE METABOLIC 01710 ANION GAP 6 MEQ/L 2013 Unknown THYROID STIMULATING HORMONE 05320 TSH 0.547 uIU/ML 12/19/2013 Unknown GFR CALC 8222446 GFR AA >60 ML/MIN 02/03/2011 Unknown GFR CALC 8130016 GFR NON-AA >60 ML/MIN 02/03/2011 Unknown THYROID STIMULATING HORMONE 17470 TSH 0.818 uIU/ML 02/03/2011 Unknown COMPLETE BLOOD COUNT 31774 WBC 7.7 10e9/L 02/04/20 11 Unknown COMPLETE BLOOD COUNT 32933 RBC 4.23 10e12/L 2010 Unknown COMPLETE BLOOD COUNT 93462 HGB 11.9 g/dL 1 Unknown COMPLETE BLOOD COUNT 38240 HCT DET 36.5 % 1 Unknown COMPLETE BLOOD COUNT 51708 MCV 86.3 fL 1 Unknown COMPLETE BLOOD COUNT 08648 MCH 28.1 pg 1 Unknown COMPLETE BLOOD COUNT 50818 MCHC 32.6 g/dL 1 Unknown COMPLETE BLOOD COUNT 29536 PLT 244 10e9/L 02/04/20 11 Unknown COMPLETE BLOOD COUNT 30548 MPV 8.7 fL 1 Unknown COMPLETE BLOOD COUNT 59916 PABLITO % 58.9 % 1 Unknown COMPLETE BLOOD COUNT 16285 LY % 31.1 % 1 Unknown COMPLETE BLOOD COUNT 62569 MON % 7.9 % 1 Unknown COMPLETE BLOOD COUNT 17911 EOS % 1.8 % 1 Unknown COMPLETE BLOOD COUNT 97549 BASO % 0.3 % 1 Unknown COMPLETE BLOOD COUNT 89517 RDW 14.7 % 1 Unknown COMPLETE BLOOD COUNT 19029 ABS PABLITO 4.54 10e9/L 011 Unknown COMPLETE BLOOD COUNT 99743 ABS LYMPH 2.39 10e9/L 011 Unknown COMPLETE BLOOD COUNT 10460 ABS MONO 0.61 10e9/L 011 Unknown COMPLETE BLOOD COUNT 12548 ABS EOS 0.14 10e9/L 011 Unknown COMPLETE BLOOD COUNT 20775 ABS BASO 0.02 10e9/L 011 Unknown COMPLETE BLOOD COUNT 08582 RDW-SD 45.1 fL 1 Unknown COMPREHENSIVE METABOLIC 73070 AST 16 U/L 2010 Unknown COMPREHENSIVE METABOLIC 36534 ALT 21 IU/L 2010 Unknown COMPREHENSIVE METABOLIC 02701 BUN 9 MG/DL 2010 Unknown COMPREHENSIVE METABOLIC 60775 ALBUMIN 4.5 GM/DL 2010 Unknown COMPREHENSIVE METABOLIC 77480 CHLORIDE 104 MMOL/L 02/03 Unknown COMPREHENSIVE METABOLIC 21038 BILI TOT 0.2 MG/DL 2010 Unknown COMPREHENSIVE METABOLIC 27928 ALK PHOS 65 U/L 2010 Unknown COMPREHENSIVE METABOLIC 81105 SODIUM 137 MMOL/L 02/03 Unknown COMPREHENSIVE METABOLIC 97967 CREATININE 0.64 MG/DL 01/16 Unknown COMPREHENSIVE METABOLIC 53343 CALCIUM 8.8 MG/DL 2010 Unknown COMPREHENSIVE METABOLIC 97151 POTASSIUM 3.8 MMOL/L 02/03 Unknown COMPREHENSIVE METABOLIC 61236 PROT TOT 6.7 GM/DL 2010 Unknown COMPREHENSIVE METABOLIC 89140 Glucose 88 MG/DL 2010 Unknown COMPREHENSIVE METABOLIC 46709 BICARB 26 MMOL/L 2010 Unknown COMPREHENSIVE METABOLIC 14730 ANION GAP 7 MEQ/L 2010 Unknown FREE T4 00975 FREE T4 1.24 NG/DL 02/03/2011 Unknown Procedures Procedure Codes Date CEFTRIAXONE SODIUM INJECTION CPT-4: J0696 05/02/2019 THER/PROPH/DIAG INJ SC/IM CPT-4: 63715 05/02/2019 DEXAMETHASONE SODIUM PHOS CPT-4: J1100 10/19/2018 THER/PROPH/DIAG INJ SC/IM CPT-4: 83639 10/19/2018 URINE CULTURE/ COLONY COUNT CPT-4: 99204 10/19/2018 URINALYSIS NONAUTO W/O SCOPE CPT-4: 56297 10/19/2018 THROAT CULTURE CPT-4: 38063 07/29/2018 STREP A ASSAY W/OPTIC CPT-4: 82931 07/26/2018 SPECIMEN HANDLING OFFICE-LAB CPT-4: 40533 07/06/2018 OCCULT BLOOD FECES CPT-4: 99702 07/06/2018 ROUTINE VENIPUNCTURE CPT-4: 79218 12/19/2013 ASSAY OF FREE THYROXINE CPT-4: 80260 12/19/2013 ASSAY THYROID STIM HORMONE CPT-4: 59412 12/19/2013 COMPREHEN METABOLIC PANEL CPT-4: 53014 12/19/2013 COMPLETE CBC W/AUTO DIFF WBC CPT-4: 37342 12/19/2013 LIPID PANEL CPT-4: 01134 12/19/2013 OCCULT BLOOD FECES CPT-4: 25905 02/03/2011 SPECIMEN HANDLING OFFICE-LAB CPT-4: 75730 12/25/2009 OCCULT BLOOD FECES CPT-4: 07817 12/25/2009 Vital Signs Date Vital 05/02/2019 Blood [...] 1: 130/78 Code: 8480-6 BMI: 30.7 Code: 60280-4 Heart Rate 1: 76 bpm Height: 5'9" Respiratory Rate: 20 bpm Temperature: 36 .8 (C) / 98.3 (F) Weight: 208 lbs 06/30/2017 Blood Pressure 1: 126/80 Code: 8480-6 BMI: 30.9 Code: 06024-7 Heart Rate 1: 72 bpm Height: 5'9" Respiratory Rate: 20 bpm Temperature: 36 .7 (C) / 98.0 (F) Weight: 209 lbs 02/04/2016 Blood Pressure 1: 122/80 Code: 8480-6 BMI: 31.3 Code: 15454-4 Heart Rate 1: 80 bpm Height: 5'9" Respiratory Rate: 20 bpm Temperature: 36 .6 (C) / 97.8 (F) Weight: 212 lbs 12/19/2013 Blood Pressure 1: 116/78 Code: 8480-6 BMI: 30.1 Code: 24076-8 Heart Rate 1: 76 bpm Height: 5'9" Respiratory Rate: 20 bpm Temperature: 36 .8 (C) / 98.3 (F) Weight: 204 lbs 10/27/2012 Blood Pressure 1: 114/70 Code: 8480-6 BMI: 30.3 Code: 25558-9 Heart Rate 1: 68 bpm Height: 5'9" Respiratory Rate: 20 bpm Temperature: 36 .8 (C) / 98.3 (F) Weight: 205 lbs 09/01/2012 Blood Pressure 1: 118/82 Code: 8480-6 BMI: 30.9 Code: 20379-4 Heart Rate 1: 80 bpm Height: 5'9" Respiratory Rate: 20 bpm Temperature: 36 .8 (C) / 98.2 (F) Weight: 209 lbs 02/03/2011 Blood Pressure 1: 118/76 Code: 8480-6 BMI: 29.5 Code: 74639-4 Heart Rate 1: 72 bpm Height: 5'9" Weight: 200 lbs 12/25/2009 Blood Pressure 1: 122/76 Code: 8480-6 BMI: 29.5 Code: 94661-4 Heart Rate 1: 80 bpm Height: 5'9" [...] 11/24 Encounters Encounter Performer Location Codes Date ([id number]) OFFICE/OUTPATIENT VISIT EST Diagnosis: Cellulitis of right breast[ICD10: N61.0] Meghan BELLAMY [facility] CPT-4: 79767 05/02/2019 ([id number]) OFFICE/OUTPATIENT VISIT EST Diagnosis: Edema, unspecified[ICD10: R60.9] Diagnosis: Adverse effect of unspecified drugs, medicaments and biological substances, initial encounter[ICD10: T50.905A] Diagnosis: Gross hematuria[ICD10: R31.0] Meghan BELLAMY [facility] CPT-4: 16483 10/19/2018 ([id number]) OFFICE/OUTPATIENT VISIT EST Diagnosis: URI, ACUTE[ICD10: J06.9] Meghan SolisKya YAMILETH ROLLINS [employer] CPT-4: 14368 07/29/2018 ([id number]) OFFICE/OUTPATIENT VISIT EST Diagnosis: Acute pharyngitis, unspecified[ICD10: J02.9] Diagnosis: URI, ACUTE[ICD10: J06.9] Meghan SolisKya YAMILETH RIA [employer] CPT-4: 41868 07/26/2018 ([id number]) PREV VISIT EST AGE 40-64 Diagnosis: Encounter for general adult medical examination without abnormal findings[ICD10: Z00.00] Diagnosis: Encounter for gynecological examination (general) (routine) without abnormal findings[ICD10: Z01.419] Diagnosis: Menopausal and female climacteric states[ICD10: N95.1] Diagnosis: Other abnormal and inconclusive findings on diagnostic imaging of breast[ICD10: R92.8] Meghan Angelitobradlupe PEREZMEGHAN IrmaKya ANGELITOBRADLUPE [employer] CPT-4: 52539 07/06/2018 ([id number]) PREV VISIT EST AGE 40-64 Diagnosis: Encounter for general adult medical examination without abnormal findings[ICD10: Z00.00] Diagnosis: Encounter for gynecological examination (general) (routine) without abnormal findings[ICD10: Z01.419] Meghan Angelitobradlupe MEGHAN IrmaKya ANGELITOFACUNDO Lund [employer] CPT-4: 99580 06/30/2017 ([id number]) PREV VISIT EST AGE 40-64 Diagnosis: Encounter for general adult medical examination without abnormal findings[ICD10: Z00.00] Meghan BELLAMY IrmaKya ANGELITOBRADLUPE GOMEZ [facility] CPT-4: 68852 02/04/2016 ([id number]) PREV VISIT EST AGE 40-64 Diagnosis: ROUTINE MEDICAL EXAM[ICD9: V70.0] Diagnosis: MENOPAUSAL DISORDER[ICD9: 627.9] Meghan BELLAMY IrmaKya DEL ROSARIO [facility] CPT-4: 58642 12/19/2013 OFFICE/OUTPATIENT VISIT EST Diagnosis: MENOPAUSAL DISORDER[ICD9: 627.9] Meghan BELLAMY IrmaKya DEL ROSARIO [facility] CPT-4: 22838 10/27/2012 ([id number]) PREV VISIT EST AGE 40-64 Diagnosis: ROUTINE MEDICAL EXAM[ICD9: V70.0] Diagnosis: MENOPAUSAL DISORDER[ICD9: 627.9] Meghan DEL ROSARIO DO [facility] CPT-4: 54079 09/01/2012 PREV VISIT EST AGE 40-64 Diagnosis: ROUTINE GYNE EXAM[ICD9: V72.31] Diagnosis: ROUTINE MEDICAL EXAM[ICD9: V70.0] Meghan DEL ROSARIO DO [facility] CPT-4: 76074 02/03/2011 SPECIMEN HANDLING Diagnosis: [ICD9: ] Diagnosis: [ICD9: ] Meghan DEL ROSARIO DO [facility] CPT-4: 9900 0 02/03/2011 ([id number]) PREV VISIT, EST, AGE 40-64 Meghan DEL ROSARIO DO [facility] CPT-4: 07137 12/25/2009 Plan of Care Planned Activity Notes Codes Status Date Visit Diagnosis Plan: Cellulitis of right breast Discu ssion: Rocephin 1gm IM now Start clindamycin with a probiotic Recheck tomorrow ICD-9 : 611.0 ICD-10 : N61.0 05/02/2019 Patient Education: clindamycin HCl- [employer] Coupon [id number] [email or web address] Completed 05/02/2019 Care [facility] P[facility] 10/21/2018 [facility] [phone] [id number] [facility] 10/20/2018 Visit Diagnosis [...] R60.9 10/19/2018 Appointment: Meghan Del Rosario WPtel: [address] [place], [place] [phone] 10/19/2018 Appointment: Meghan Del Rosario WPtel: [address] [place], [place] [phone] US Per DR ROBERTSON 08/02/2018 Visit Diagnosis Plan: URI, ACUTE Discussion: CXR negat johnna Lungs clear Only physical exam finding is injection on throat and mild fluid behind ears Will increase zyrtec to BID Throat Culture Notify surgeon of current course ICD-9 : 465.9 ICD-10 : J06.9 07/29/2018 Appointment: Meghan Del Rosario WPtel: [address] [place], [place] [phone] WORK IN 07/29/2018 Visit Diagnosis Plan: Acute pharyngitis, unspecified D iscussion: Strep Negative Cover with Zithromax with upcoming surgery next week but if worsens will let us know and will have to postpone surgery ICD-9 : 462 ICD-10 : J02.9 07/26/2018 Visit NOS Plan: Plan Notes: Supportive care. Rest, Fluids... 07/26/2018 Appointment: Meghan Del Rosario WPtel: [address] [place], [place] [phone] ACUTE ILLNESS 07/26/2018 Visit Diagnosis Plan: Encounter [...] N95.1 07/06/2018 Appointment: Meghan Del Rosario WPtel: [address] [place], [place] [phone] US PAP 07/06/2018 Care Plan: MAMMOGRAM BOTH BREASTS Diagnostic Mammogram of [place] Breast LOINC : 85835-4 Pending 06/24/2018 Care Plan: US EXAM CHEST [...] Z01.419 06/30/2017 Appointment: Meghan Del Rosario WPtel: [address] [place], [place] [phone] US PAP 06/30/2017 Patient Education: Patient Medication Summary Completed 06/30/2017 Visit Plan: Update fasting lab Pap done Had mammogram Weight bearing exercise 02/04/2016 Appointment: Meghan Del Rosario WPtel: [address] [place], [place] [phone] [place] 01/30 confirmed~sl PAP 02/04/2016 Patient Education: Patient Medication Summary Completed 02/04/2016 Appointment: Meghan Del Rosario WPtel: [address] [place], [place] [phone] US RESCHEDULED 01/17/2016 Patient Education: Patient Medication Summary Completed 12/31/2015 Care Plan: MAMMOGRAM SCREENING LOINC : 2 6347-5 Pending 12/31/2015 Visit Plan: Try to decrease fluoxetine t o 10mg daily Check Mammo Check fasting lab Check Colonoscopy due to family hx of Colon Cancer 12/19/2013 Appointment: Meghan Del Rosario WPtel: [phone] [place], [place] [phone] 12/16 vm PAP 12/19/2013 Patient Education: Patient Medication Summary Completed 12/19/2013 Visit Plan: Long discussion about HRT--p t has Breast Ca on both sides--Discussed BRCA gene testing in Mom Will try higher dose of fluoxetine 10/27/2012 Appointment: Meghan Del Rosario WPtel: [address] [place] [address] FOLLOW UP 10/27/2012 Patient Education: Patient Medication Summary Completed 10/27/2012 Visit Plan: Lab discussed Add fish oil 3 grams daily Long discussion about hormones Trial of fluoxetine 09/01/2012 Appointment: Meghan Del Rosario WPtel: [address] [place], [place] [phone] PAP 09/01/2012 Patient Education: Patient Medication Summary Completed 09/01/2012 Visit Plan: Pap Done and Mammogram order ed Fasting lab ordered 02/03/2011 Appointment: Meghan Del Rosario WPtel: [address] [place], [place] [phone] [place] PAP 02/03/2011 Patient Education: Patient Medication Summary Completed 02/03/2011 Visit Plan: Pap done Mammo done last wee k Lab discussed Discussed Bioidentical Hormones 12/25/2009 Appointment: Meghan Del Rosario WPtel: [id number] [place], [place] [phone] [place] PAP 12/25/2009 Patient Education: Patient Medication Summary Completed 12/25/2009 Instructions Comment . Update fasting lab Pap done Had mammogram Weight bearing exercise . Try to decrease fluoxetine to 10mg kobe ly Check Mammo Check fasting lab Check Colonoscopy due to family hx of Colon Cancer . Long discussion about HRT--pt has [place] st Ca on both sides--Discussed BRCA gene [...]
--- OUTSIDE RECORDS SUMMARY | 2019-05-15 23:45 | XMS REPORT | CCD ---
Author Author Caridad Del Rosario D.O. 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 Name Role Phone PP Unavailable CCM Unavailable Summary Purpose Interface Exchange Insurance Providers Payer name Policy type / Coverage type Covered libertarian ID Effective Begin Date Effective End Date [facility] Commercial Insurance [id number] Un known Family History Family History data [...] Instructions clindamycin HCl 300 mg capsule RxNorm: 820456 1 Capsule (s) Oral three times a day 05/02/2019 05/09/2019 Active fluoxetine 20 mg tablet RxNorm: 883095 1 Tablet(s) Oral QD 03/29/20 19 09/24/2019 Active Zithromax Z-Khoi 250 mg tablet RxNorm: 535891 Tablet(s) Oral as directed 03/25/2019 03/25/2019 Inactive Zithromax Z-Khoi 250 mg tablet RxNorm: 710908 Tablet(s) Oral as directed 03/25/2019 03/24/2019 Inactive famotidine 20 mg tablet RxNorm: 567509 1 Tablet(s) PO BID 10/19/2018 02/15/2019 Inactive Tessalon Perles 100 mg capsule RxNorm: 120188 1 Capsule (s) PO TID as needed for cough 07/26/2018 10/18/2018 Inactive Zithromax 500 mg tablet RxNorm: 123199 1 Tablet(s) PO QD 07/26/2018 0 07/25/2018 Inactive Zithromax 500 mg tablet RxNorm: 997146 1 Tablet(s) PO QD 07/26/2018 0 07/30/2018 Inactive Xanax 0.25 mg tablet RxNorm: 293729 1/2-1 Tablet(s) PO BID 06/01/19 19 No Stop Date Active fluoxetine 20 mg tablet RxNorm: 270828 1 Tablet(s) PO Q D Due for annual appointment in 06/01/2018 02/25/2019 Inactive fluoxetine 20 mg tablet RxNorm: 887992 1 Tablet(s) PO Q D Due for annual in [facility] 06/01/2018 02/25/2019 Inactive fluoxetine 20 mg tablet RxNorm: 008298 1 Tablet(s) PO QD 08/05/2017 1 07/02/2017 Inactive fluoxetine 20 mg tablet RxNorm: 756142 1 Tablet(s) PO QD 08/04/2017 0 08/04/2017 Inactive Xanax 0.25 mg tablet RxNorm: 677324 1/2-1 Tablet(s) PO BID 07/02/19 18 05/31/2018 Inactive fluoxetine 10 mg capsule RxNorm: 584609 2 Capsule(s) PO QAM 018 07/05/2018 Inactive Generic For:PROZAC 10 MG PUL VULE 09/24/2015 10:15:02 AM N O T I C E Last quantity doesn't match original quantity fluoxetine 10 mg capsule RxNorm: 626594 2 Capsule(s) PO QAM Routine wellness due after 02-04-17 12/03/2016 03/02/2017 Inactive Generic For:PROZ AC 10 MG PULVULE 09/24/2015 10:15:02 AM N O T I C E Last quantity doesn't match original quantity Xanax 0.25 mg tablet RxNorm: 800750 1/2-1 Tablet(s) PO BID 02/05/20 16 07/01/2017 Inactive fluoxetine 10 mg capsule RxNorm: 755819 2 Capsule(s) PO QAM 016 07/25/2018 Inactive fluoxetine 10 mg capsule RxNorm: 691952 2 Capsule(s) PO QAM 016 12/03/2016 Inactive Generic For:PROZAC 10 MG PUL VULE 09/24/2015 10:15:02 AM N O T I C E Last quantity doesn't match original quantity fluoxetine 10 mg capsule RxNorm: 900961 2 Capsule(s) PO QAM TAKE 2 CAPSULES BY MOUTH EVERY MORNING 11/16/2015 02/03/2016 Inactive Generic For: PROZAC 10 MG PULVULE 09/24/2015 10:15:02 AM N O T I C E Last quantity doesn't match original quantity fluoxetine 10 mg capsule RxNorm: 175352 2 Capsule(s) PO QAM TAKE 2 CAPSULES BY MOUTH EVERY MORNING 09/24/2015 11/15/2015 Inactive Generic For: PROZAC 10 MG PULVULE 09/24/2015 10:15:02 AM N O T I C E Last quantity doesn't match original quantity fluoxetine 10 mg capsule RxNorm: 613125 2 Capsule(s) PO QAM 015 09/24/2015 Inactive fluoxetine 10 mg capsule RxNorm: 140703 2 Capsule(s) PO QAM 015 07/28/2018 Inactive fluoxetine 10 mg capsule RxNorm: 853216 2 Capsule(s) PO QAM 014 05/21/2014 Inactive Xanax 0.25 mg tablet RxNorm: 447327 1/2-1 Tablet(s) PO BID 04/21/20 13 No Stop Date Active fluoxetine 10 mg capsule RxNorm: 015483 2 Capsule(s) PO QAM 013 01/24/2013 Inactive fluoxetine 10 mg capsule RxNorm: 584722 1 Capsule(s) PO QAM 013 10/26/2012 Inactive Multivitamin & Mineral Formula Tab RxNorm: 1 Tablet(s) PO QD No St art Date Active Zyrtec 10 mg tablet RxNorm: 3999433 1 Tablet(s) PO BID No Start Date Active Prilosec OTC 20 mg tablet,delayed release RxNorm: 309594 1 Tabl et(s) PO QD No Start Date Active Tessalon Perles 100 mg capsule RxNorm: 800342 1 Capsule (s) PO TID as needed for cough No Start Date 07/25/2018 Inactive Biotin Oral RxNorm: Oral No Start Date 10/18/2018 Inactive Zithromax Z-Khoi oral RxNorm: 73348 oral No Start Date 03/24/2019 Inactive Echinacea ACZ oral RxNorm: oral No Start Date 07/28/2018 Inacti ve Vitamin D3 1000 units Capsule RxNorm: 1 Capsule(s) PO QD No St art Date 07/28/2018 Inactive Black Cohosh Oral RxNorm: Oral No Start Date 07/28/2018 Inactiv e Xanax 0.25 mg tablet RxNorm: 261781 1/2-1 Tablet(s) PO BID No Start Date 04/20/2013 Inactive Zyrtec 10 mg tablet RxNorm: 1841332 1 Tablet(s) PO QD as needed No Start Date 10/18/2018 Inactive Vitamin C 1,000 mg tablet RxNorm: 331403 1 Tablet(s) PO QD No Start Date 10/18/2018 Inactive fluoxetine 20 mg tablet RxNorm: 004211 1 Tablet(s) PO QD No Start D ate 08/03/2017 Inactive Medication Administered No Medication Administered data Immunizations Vaccine Codes Date Status Influenza CVX: 141 04/08/2019 Influenza CVX: 141 04/26/2018 Results Observation Observation Code Item Item Code Result Date S ervice Location CULTURE, URINE, ROUTINE 395 CULTURE, URINE, ROUTINE 10/20/2018 [facility] [address] [place] [address] GFR CALC [id number] GFR Non Afr Amr >60 mL/min 07/05/2018 Un known GFR CALC [id number] GFR Afr Amr >60 mL/min 07/05/2018 Unknow n FREE T4 81357 T4 Free 0.94 ng/dL 07/05/2018 Unknown [facility] 31466 Cholesterol 165 mg/dL 07/05/2018 Unkno wn [facility] 80169 Triglyceride 108 mg/dL 07/05/2018 Unkn own [facility] 84634 HDL CHOLESTEROL 50 mg/dL 07/05/2018 U nknown [facility] 68008 Chol/HDL Ratio 3.30 ratio 07/05/2018 U nknown [facility] 42432 NON-HDL Chol 115 mg/dL 07/05/2018 Unkn own [facility] 50315 LDL Cholesterol 93 mg/dL 07/05/2018 U nknown THYROID STIMULATING HORMONE 39191 TSH 0.937 uIU/mL 07/05/2018 Unknown COMPREHENSIVE METABOLIC 71971 AST 19 U/L 2018 Unknown COMPREHENSIVE METABOLIC 73843 ALT 21 U/L 2018 Unknown COMPREHENSIVE METABOLIC 90169 BUN 10 mg/dL 2018 Unknown COMPREHENSIVE METABOLIC 85839 ALBUMIN 4.3 g/dL 2018 Unknown COMPREHENSIVE METABOLIC 67893 CHLORIDE 106 mmol/L 07/05 Unknown COMPREHENSIVE METABOLIC 94333 Bili Total 0.3 mg/dL 07/05 Unknown COMPREHENSIVE METABOLIC 31730 ALK PHOS 59 U/L 2018 Unknown COMPREHENSIVE METABOLIC 89130 SODIUM 140 mmol/L 07/05 Unknown COMPREHENSIVE METABOLIC 72936 CREATININE 0.68 mg/dL 06/18 Unknown COMPREHENSIVE METABOLIC 56512 CALCIUM 9.2 mg/dL 2018 Unknown COMPREHENSIVE METABOLIC 76313 POTASSIUM 4.0 mmol/L 07/05 Unknown COMPREHENSIVE METABOLIC 84612 Total Protein 7.1 g/dL Unknown COMPREHENSIVE METABOLIC 81317 Glucose 84 mg/dL 2018 Unknown COMPREHENSIVE METABOLIC 95875 Bicarbonate 27 mmol/L 06/18 Unknown COMPREHENSIVE METABOLIC 39804 AGAP 7 mmol/L 2018 Unknown COMPLETE BLOOD COUNT 5355505 WBC 6.0 10e9/L 07/05/19 19 Unknown COMPLETE BLOOD COUNT 3427174 RBC 4.36 10e12/L 2018 Unknown COMPLETE BLOOD COUNT 2830899 HEMOGLOBIN 12.9 g/dL 07/05/19 19 Unknown COMPLETE BLOOD COUNT 4399998 HEMATOCRIT 39.1 % 07/05/19 19 Unknown COMPLETE BLOOD COUNT 7267652 MCV 89.7 fL 9 Unknown COMPLETE BLOOD COUNT 6806254 MCH 29.6 pg 9 Unknown COMPLETE BLOOD COUNT 6012151 MCHC 33.0 g/dL 9 Unknown COMPLETE BLOOD COUNT 6471064 PLATELET COUNT 270 10e9/L Unknown COMPLETE BLOOD COUNT 6761570 Mean Plt Volume 9.0 fL Unknown COMPLETE BLOOD COUNT 2096510 Neut Auto 53.8 % 9 Unknown COMPLETE BLOOD COUNT 1029645 Lymph Auto 35.8 % 07/05/19 19 Unknown COMPLETE BLOOD COUNT 9835272 [place] Auto 7.9 % 9 Unknown COMPLETE BLOOD COUNT 8795016 RDW 13.9 % 9 Unknown COMPLETE BLOOD COUNT 0832416 Eos Auto 2.0 % 9 Unknown COMPLETE BLOOD COUNT 8584314 Baso Auto 0.5 % 9 Unknown COMPLETE BLOOD COUNT 0980150 Neutrophil Abs 3.23 10e9/L Unknown COMPLETE BLOOD COUNT 5760053 Lymphocyte Abs 2.15 10e9/L Unknown COMPLETE BLOOD COUNT 0184176 Monocyte Abs 0.47 10e9/L 06/18 Unknown COMPLETE BLOOD COUNT 3119060 Eosinophil Abs 0.12 10e9/L Unknown COMPLETE BLOOD COUNT 0024154 RDW-SD 44.5 fL 9 Unknown COMPLETE BLOOD COUNT 9844370 Basophil Abs 0.03 10e9/L 06/18 Unknown FREE T4 04399 T4 Free 1.21 ng/dL 06/30/2017 Unknown GFR CALC 3746438 GFR Non Afr Amr >60 mL/min 06/30/2017 Un known GFR CALC 7916827 GFR Afr Amr >60 mL/min 06/30/2017 Unknow n THYROID STIMULATING HORMONE 48645 TSH 0.873 uIU/mL 06/30/2017 Unknown LIP[facility] GROUP 07099 Cholesterol 175 mg/dL 06/30/2017 Unkno wn L[facility] GROUP 82844 Triglyceride 129 mg/dL 06/30/2017 Unkn own [facility] 53795 HDL CHOLESTEROL 51 06/30/2017 U nknown [facility] 36016 Chol/HDL Ratio 3.43 ratio 06/30/2017 U nknown [facility] GROUP 47794 NON-HDL Chol 124 mg/dL 06/30/2017 Unkn own LIP[facility] GROUP 07850 LDL Cholesterol 98 mg/dL 06/30/2017 U nknown COMPLETE BLOOD COUNT 7830933 WBC 6.2 10e9/L 06/30/19 18 Unknown COMPLETE BLOOD COUNT 6389592 RBC 4.58 10e12/L 2017 Unknown COMPLETE BLOOD COUNT 4014873 HEMOGLOBIN 13.3 g/dL 06/30/19 18 Unknown COMPLETE BLOOD COUNT 5969408 HEMATOCRIT 41.6 % 06/30/19 18 Unknown COMPLETE BLOOD COUNT 3862331 MCV 90.8 fL 8 Unknown COMPLETE BLOOD COUNT 9061073 MCH 29.0 pg 8 Unknown COMPLETE BLOOD COUNT 5321597 MCHC 32.0 g/dL 8 Unknown COMPLETE BLOOD COUNT 6302119 PLATELET COUNT 271 10e9/L Unknown COMPLETE BLOOD COUNT 1222212 Mean Plt Volume 8.9 fL Unknown COMPLETE BLOOD COUNT 2019075 Neut Auto 53.5 % 8 Unknown COMPLETE BLOOD COUNT 3511057 Lymph Auto 36.4 % 06/30/19 18 Unknown COMPLETE BLOOD COUNT 2506713 [place] Auto 8.1 % 8 Unknown COMPLETE BLOOD COUNT 6887572 RDW 13.4 % 8 Unknown COMPLETE BLOOD COUNT 0360770 Eos Auto 1.5 % 8 Unknown COMPLETE BLOOD COUNT 9266353 Baso Auto 0.5 % 8 Unknown COMPLETE BLOOD COUNT 2698464 Neutrophil Abs 3.32 10e9/L Unknown COMPLETE BLOOD COUNT 5583312 Lymphocyte Abs 2.26 10e9/L Unknown COMPLETE BLOOD COUNT 8975481 Monocyte Abs 0.50 10e9/L 06/18 Unknown COMPLETE BLOOD COUNT 5700300 Eosinophil Abs 0.09 10e9/L Unknown COMPLETE BLOOD COUNT 6195259 RDW-SD 43.9 fL 8 Unknown COMPLETE BLOOD COUNT 6799267 Basophil Abs 0.03 10e9/L 06/18 Unknown COMPREHENSIVE METABOLIC 74198 AST 19 U/L 2017 Unknown COMPREHENSIVE METABOLIC 49368 ALT 22 U/L 2017 Unknown COMPREHENSIVE METABOLIC 55404 BUN 12 mg/dL 2017 Unknown COMPREHENSIVE METABOLIC 08660 ALBUMIN 4.9 g/dL 2017 Unknown COMPREHENSIVE METABOLIC 85399 CHLORIDE 106 mmol/L 06/30 Unknown COMPREHENSIVE METABOLIC 72070 Bili Total 0.4 mg/dL 06/30 Unknown COMPREHENSIVE METABOLIC 41706 ALK PHOS 66 U/L 2017 Unknown COMPREHENSIVE METABOLIC 73225 SODIUM 143 mmol/L 06/30 Unknown COMPREHENSIVE METABOLIC 35569 CREATININE 0.71 mg/dL 06/18 Unknown COMPREHENSIVE METABOLIC 81317 CALCIUM 9.9 mg/dL 2017 Unknown COMPREHENSIVE METABOLIC 87513 POTASSIUM 4.1 mmol/L 06/30 Unknown COMPREHENSIVE METABOLIC 16041 Total Protein 8.0 g/dL Unknown COMPREHENSIVE METABOLIC 46129 Glucose 87 mg/dL 2017 Unknown COMPREHENSIVE METABOLIC 40456 Bicarbonate 27 mmol/L 06/18 Unknown COMPREHENSIVE METABOLIC 24304 AGAP 10 mmol/L 2017 Unknown GFR CALC 1188240 GFR AA >60 ML/MIN 12/19/2013 Unknown GFR CALC 5638019 GFR NON-AA >60 ML/MIN 12/19/2013 Unknown LIPID GROUP 56280 HDL TEST 52 MG/DL 12/19/2013 Unknown LIP[facility] GROUP 59125 TRIG 96 MG/DL 12/19/2013 Unknown LIP[facility] GROUP 10750 TEST LDL 98 MG/DL 12/19/2013 Unknown LIP[facility] GROUP 17815 CHOL 169 MG/DL 12/19/2013 Unknown LIP[facility] GROUP 48387 RCHOL/HDL 3.25 RATIO 12/19/2013 Unknow n LIPID GROUP 21673 NON-HDL CH 117 MG/DL 12/19/2013 Unknow n COMPLETE BLOOD COUNT 8332485 WBC 5.6 10e9/L 12/20/19 14 Unknown COMPLETE BLOOD COUNT 4023581 RBC 4.45 10e12/L 2013 Unknown COMPLETE BLOOD COUNT 8420056 HGB 13.0 g/dL 4 Unknown COMPLETE BLOOD COUNT 5831778 HCT DET 39.9 % 4 Unknown COMPLETE BLOOD COUNT 7773560 MCV 89.7 fL 4 Unknown COMPLETE BLOOD COUNT 4875335 MCH 29.2 pg 4 Unknown COMPLETE BLOOD COUNT 4814722 MCHC 32.6 g/dL 4 Unknown COMPLETE BLOOD COUNT 5043231 PLT 244 10e9/L 12/20/19 14 Unknown COMPLETE BLOOD COUNT 9105232 MPV 9.4 fL 4 Unknown COMPLETE BLOOD COUNT 6107462 PABLITO % 58.5 % 4 Unknown COMPLETE BLOOD COUNT 4041200 LY % 30.8 % 4 Unknown COMPLETE BLOOD COUNT 0943756 MON % 8.2 % 4 Unknown COMPLETE BLOOD COUNT 6176131 EOS % 2.0 % 4 Unknown COMPLETE BLOOD COUNT 4897395 BASO % 0.5 % 4 Unknown COMPLETE BLOOD COUNT 4678658 RDW 13.6 % 4 Unknown COMPLETE BLOOD COUNT 7882458 ABS PABLITO 3.28 10e9/L 014 Unknown COMPLETE BLOOD COUNT 6221597 ABS LYMPH 1.72 10e9/L 014 Unknown COMPLETE BLOOD COUNT 2659609 ABS MONO 0.46 10e9/L 014 Unknown COMPLETE BLOOD COUNT 3806084 ABS EOS 0.11 10e9/L 014 Unknown COMPLETE BLOOD COUNT 2226053 ABS BASO 0.03 10e9/L 014 Unknown COMPLETE BLOOD COUNT 7401290 RDW-SD 43.6 fL 4 Unknown FREE T4 63303 FREE T4 1.26 NG/DL 12/19/2013 Unknown COMPREHENSIVE METABOLIC 60049 AST 18 U/L 2013 Unknown COMPREHENSIVE METABOLIC 87424 ALT 22 IU/L 2013 Unknown COMPREHENSIVE METABOLIC 48940 BUN 11 MG/DL 2013 Unknown COMPREHENSIVE METABOLIC 29675 ALBUMIN 4.7 GM/DL 2013 Unknown COMPREHENSIVE METABOLIC 80825 CHLORIDE 108 MMOL/L 12/19 Unknown COMPREHENSIVE METABOLIC 45063 BILI TOT 0.3 MG/DL 2013 Unknown COMPREHENSIVE METABOLIC 74198 ALK PHOS 67 U/L 2013 Unknown COMPREHENSIVE METABOLIC 53053 SODIUM 141 MMOL/L 12/19 Unknown COMPREHENSIVE METABOLIC 64171 CREATININE 0.67 MG/DL 08/2013 Unknown COMPREHENSIVE METABOLIC 59960 CALCIUM 9.4 MG/DL 2013 Unknown COMPREHENSIVE METABOLIC 14307 POTASSIUM 4.1 MMOL/L 12/19 Unknown COMPREHENSIVE METABOLIC 44737 PROT TOT 7.0 GM/DL 2013 Unknown COMPREHENSIVE METABOLIC 56377 Glucose 94 MG/DL 2013 Unknown COMPREHENSIVE METABOLIC 43895 BICARB 27 MMOL/L 2013 Unknown COMPREHENSIVE METABOLIC 25734 ANION GAP 6 MEQ/L 2013 Unknown THYROID STIMULATING HORMONE 39047 TSH 0.547 uIU/ML 12/19/2013 Unknown GFR CALC 9206401 GFR AA >60 ML/MIN 02/03/2011 Unknown GFR CALC 1744016 GFR NON-AA >60 ML/MIN 02/03/2011 Unknown THYROID STIMULATING HORMONE 03252 TSH 0.818 uIU/ML 02/03/2011 Unknown COMPLETE BLOOD COUNT 40846 WBC 7.7 10e9/L 02/04/20 11 Unknown COMPLETE BLOOD COUNT 81874 RBC 4.23 10e12/L 2010 Unknown COMPLETE BLOOD COUNT 55528 HGB 11.9 g/dL 1 Unknown COMPLETE BLOOD COUNT 58696 HCT DET 36.5 % 1 Unknown COMPLETE BLOOD COUNT 18124 MCV 86.3 fL 1 Unknown COMPLETE BLOOD COUNT 20809 MCH 28.1 pg 1 Unknown COMPLETE BLOOD COUNT 57722 MCHC 32.6 g/dL 1 Unknown COMPLETE BLOOD COUNT 03652 PLT 244 10e9/L 02/04/20 11 Unknown COMPLETE BLOOD COUNT 64556 MPV 8.7 fL 1 Unknown COMPLETE BLOOD COUNT 91927 PABLITO % 58.9 % 1 Unknown COMPLETE BLOOD COUNT 42170 LY % 31.1 % 1 Unknown COMPLETE BLOOD COUNT 38661 MON % 7.9 % 1 Unknown COMPLETE BLOOD COUNT 50224 EOS % 1.8 % 1 Unknown COMPLETE BLOOD COUNT 63743 BASO % 0.3 % 1 Unknown COMPLETE BLOOD COUNT 90299 RDW 14.7 % 1 Unknown COMPLETE BLOOD COUNT 42640 ABS PABLITO 4.54 10e9/L 011 Unknown COMPLETE BLOOD COUNT 32348 ABS LYMPH 2.39 10e9/L 011 Unknown COMPLETE BLOOD COUNT 04846 ABS MONO 0.61 10e9/L 011 Unknown COMPLETE BLOOD COUNT 94968 ABS EOS 0.14 10e9/L 011 Unknown COMPLETE BLOOD COUNT 43356 ABS BASO 0.02 10e9/L 011 Unknown COMPLETE BLOOD COUNT 33095 RDW-SD 45.1 fL 1 Unknown COMPREHENSIVE METABOLIC 21751 AST 16 U/L 2010 Unknown COMPREHENSIVE METABOLIC 32385 ALT 21 IU/L 2010 Unknown COMPREHENSIVE METABOLIC 27853 BUN 9 MG/DL 2010 Unknown COMPREHENSIVE METABOLIC 89063 ALBUMIN 4.5 GM/DL 2010 Unknown COMPREHENSIVE METABOLIC 18002 CHLORIDE 104 MMOL/L 02/03 Unknown COMPREHENSIVE METABOLIC 56789 BILI TOT 0.2 MG/DL 2010 Unknown COMPREHENSIVE METABOLIC 57213 ALK PHOS 65 U/L 2010 Unknown COMPREHENSIVE METABOLIC 46050 SODIUM 137 MMOL/L 02/03 Unknown COMPREHENSIVE METABOLIC 05048 CREATININE 0.64 MG/DL 01/16 Unknown COMPREHENSIVE METABOLIC 74199 CALCIUM 8.8 MG/DL 2010 Unknown COMPREHENSIVE METABOLIC 17387 POTASSIUM 3.8 MMOL/L 02/03 Unknown COMPREHENSIVE METABOLIC 16834 PROT TOT 6.7 GM/DL 2010 Unknown COMPREHENSIVE METABOLIC 07742 Glucose 88 MG/DL 2010 Unknown COMPREHENSIVE METABOLIC 06413 BICARB 26 MMOL/L 2010 Unknown COMPREHENSIVE METABOLIC 04452 ANION GAP 7 MEQ/L 2010 Unknown FREE T4 76815 FREE T4 1.24 NG/DL 02/03/2011 Unknown Procedures Procedure Codes Date CEFTRIAXONE SODIUM INJECTION CPT-4: J0696 05/02/2019 THER/PROPH/DIAG INJ SC/IM CPT-4: 26840 05/02/2019 DEXAMETHASONE SODIUM PHOS CPT-4: J1100 10/19/2018 THER/PROPH/DIAG INJ SC/IM CPT-4: 85157 10/19/2018 URINE CULTURE/ COLONY COUNT CPT-4: 45016 10/19/2018 URINALYSIS NONAUTO W/O SCOPE CPT-4: 13904 10/19/2018 THROAT CULTURE CPT-4: 82290 07/29/2018 STREP A ASSAY W/OPTIC CPT-4: 20456 07/26/2018 SPECIMEN HANDLING OFFICE-LAB CPT-4: 91888 07/06/2018 OCCULT BLOOD FECES CPT-4: 68045 07/06/2018 ROUTINE VENIPUNCTURE CPT-4: 60381 12/19/2013 ASSAY OF FREE THYROXINE CPT-4: 72318 12/19/2013 ASSAY THYROID STIM HORMONE CPT-4: 20508 12/19/2013 COMPREHEN METABOLIC PANEL CPT-4: 59158 12/19/2013 COMPLETE CBC W/AUTO DIFF WBC CPT-4: 76515 12/19/2013 LIPID PANEL CPT-4: 36724 12/19/2013 OCCULT BLOOD FECES CPT-4: 67939 02/03/2011 SPECIMEN HANDLING OFFICE-LAB CPT-4: 69435 12/25/2009 OCCULT BLOOD FECES CPT-4: 54865 12/25/2009 Vital Signs Date Vital 05/02/2019 Blood [...] 1: 130/78 Code: 8480-6 BMI: 30.7 Code: 89462-4 Heart Rate 1: 76 bpm Height: 5'9" Respiratory Rate: 20 bpm Temperature: 36 .8 (C) / 98.3 (F) Weight: 208 lbs 06/30/2017 Blood Pressure 1: 126/80 Code: 8480-6 BMI: 30.9 Code: 78617-0 Heart Rate 1: 72 bpm Height: 5'9" Respiratory Rate: 20 bpm Temperature: 36 .7 (C) / 98.0 (F) Weight: 209 lbs 02/04/2016 Blood Pressure 1: 122/80 Code: 8480-6 BMI: 31.3 Code: 33634-0 Heart Rate 1: 80 bpm Height: 5'9" Respiratory Rate: 20 bpm Temperature: 36 .6 (C) / 97.8 (F) Weight: 212 lbs 12/19/2013 Blood Pressure 1: 116/78 Code: 8480-6 BMI: 30.1 Code: 28785-1 Heart Rate 1: 76 bpm Height: 5'9" Respiratory Rate: 20 bpm Temperature: 36 .8 (C) / 98.3 (F) Weight: 204 lbs 10/27/2012 Blood Pressure 1: 114/70 Code: 8480-6 BMI: 30.3 Code: 99187-7 Heart Rate 1: 68 bpm Height: 5'9" Respiratory Rate: 20 bpm Temperature: 36 .8 (C) / 98.3 (F) Weight: 205 lbs 09/01/2012 Blood Pressure 1: 118/82 Code: 8480-6 BMI: 30.9 Code: 39962-5 Heart Rate 1: 80 bpm Height: 5'9" Respiratory Rate: 20 bpm Temperature: 36 .8 (C) / 98.2 (F) Weight: 209 lbs 02/03/2011 Blood Pressure 1: 118/76 Code: 8480-6 BMI: 29.5 Code: 73386-6 Heart Rate 1: 72 bpm Height: 5'9" Weight: 200 lbs 12/25/2009 Blood Pressure 1: 122/76 Code: 8480-6 BMI: 29.5 Code: 13979-6 Heart Rate 1: 80 bpm Height: 5'9" [...] 11/24 Encounters Encounter Performer Location Codes Date ([id number]) OFFICE/OUTPATIENT VISIT EST Diagnosis: Cellulitis of right breast[ICD10: N61.0] Meghan BELLAMY [facility] CPT-4: 88517 05/02/2019 ([id number]) OFFICE/OUTPATIENT VISIT EST Diagnosis: Edema, unspecified[ICD10: R60.9] Diagnosis: Adverse effect of unspecified drugs, medicaments and biological substances, initial encounter[ICD10: T50.905A] Diagnosis: Gross hematuria[ICD10: R31.0] Meghan BELLAMY [employer] CPT-4: 00665 10/19/2018 ([id number]) OFFICE/OUTPATIENT VISIT EST Diagnosis: URI, ACUTE[ICD10: J06.9] Meghan SolisKya YAMILETH ROLLINS [facility] CPT-4: 46396 07/29/2018 ([id number]) OFFICE/OUTPATIENT VISIT EST Diagnosis: Acute pharyngitis, unspecified[ICD10: J02.9] Diagnosis: URI, ACUTE[ICD10: J06.9] Meghan SolisKya YAMILETH RIA [facility] CPT-4: 07962 07/26/2018 ([id number]) PREV VISIT EST AGE 40-64 Diagnosis: Encounter for general adult medical examination without abnormal findings[ICD10: Z00.00] Diagnosis: Encounter for gynecological examination (general) (routine) without abnormal findings[ICD10: Z01.419] Diagnosis: Menopausal and female climacteric states[ICD10: N95.1] Diagnosis: Other abnormal and inconclusive findings on diagnostic imaging of breast[ICD10: R92.8] Meghan Angelitobradlupe PEREZMEGHAN IrmaKya ANGELITOBRADLUPE [facility] CPT-4: 65208 07/06/2018 ([id number]) PREV VISIT EST AGE 40-64 Diagnosis: Encounter for general adult medical examination without abnormal findings[ICD10: Z00.00] Diagnosis: Encounter for gynecological examination (general) (routine) without abnormal findings[ICD10: Z01.419] Meghan Angelitobradlupe MEGHAN IrmaKay ANGELITOFACUNDO Lund [facility] CPT-4: 53808 06/30/2017 ([id number]) PREV VISIT EST AGE 40-64 Diagnosis: Encounter for general adult medical examination without abnormal findings[ICD10: Z00.00] Meghan BELLAMY IrmaKya ANGELITOBRADLUPE GOMEZ [facility] CPT-4: 83268 02/04/2016 ([id number]) PREV VISIT EST AGE 40-64 Diagnosis: ROUTINE MEDICAL EXAM[ICD9: V70.0] Diagnosis: MENOPAUSAL DISORDER[ICD9: 627.9] Meghan BELLAMY IrmaKya DEL ROSARIO [employer] CPT-4: 65645 12/19/2013 OFFICE/OUTPATIENT VISIT EST Diagnosis: MENOPAUSAL DISORDER[ICD9: 627.9] Meghan BELLAMY IrmaKya DEL ROSARIO [employer] CPT-4: 60894 10/27/2012 ([id number]) PREV VISIT EST AGE 40-64 Diagnosis: ROUTINE MEDICAL EXAM[ICD9: V70.0] Diagnosis: MENOPAUSAL DISORDER[ICD9: 627.9] Meghan DEL ROSARIO DO [facility] CPT-4: 01057 09/01/2012 PREV VISIT EST AGE 40-64 Diagnosis: ROUTINE GYNE EXAM[ICD9: V72.31] Diagnosis: ROUTINE MEDICAL EXAM[ICD9: V70.0] Meghan DEL ROSARIO DO [facility] CPT-4: 85332 02/03/2011 SPECIMEN HANDLING Diagnosis: [ICD9: ] Diagnosis: [ICD9: ] Meghan DEL ROSARIO DO [employer] CPT-4: 9900 0 02/03/2011 ([id number]) PREV VISIT, EST, AGE 40-64 Meghan DEL ROSARIO DO [employer] CPT-4: 23133 12/25/2009 Plan of Care Planned Activity Notes Codes Status Date Visit Diagnosis Plan: Cellulitis of right breast Discu ssion: Rocephin 1gm IM now Start clindamycin with a probiotic Recheck tomorrow ICD-9 : 611.0 ICD-10 : N61.0 05/02/2019 Patient Education: clindamycin HCl- [employer] Coupon [id number] [email or web address] Completed 05/02/2019 Care Plan[facility] Pending 10/21/2018 [facility] Del [facility] [phone] [id number] [facility] 10/20/2018 Visit Diagnosis [...] R60.9 10/19/2018 Appointment: Meghan Del Rosario WPtel: [address] [place], [place] [phone] 10/19/2018 Appointment: Meghan Del Rosario WPtel: [address] [place], [place] [phone] US Per DR ROBERTSON 08/02/2018 Visit Diagnosis Plan: URI, ACUTE Discussion: CXR negat johnna Lungs clear Only physical exam finding is injection on throat and mild fluid behind ears Will increase zyrtec to BID Throat Culture Notify surgeon of current course ICD-9 : 465.9 ICD-10 : J06.9 07/29/2018 Appointment: Meghan Del Rosario WPtel: [address] [place], [place] [phone] WORK IN 07/29/2018 Visit Diagnosis Plan: Acute pharyngitis, unspecified D iscussion: Strep Negative Cover with Zithromax with upcoming surgery next week but if worsens will let us know and will have to postpone surgery ICD-9 : 462 ICD-10 : J02.9 07/26/2018 Visit NOS Plan: Plan Notes: Supportive care. Rest, Fluids... 07/26/2018 Appointment: Meghan Del Rosario WPtel: [address] [place], [place] [phone] ACUTE ILLNESS 07/26/2018 Visit Diagnosis Plan: Encounter [...] N95.1 07/06/2018 Appointment: Meghan Del Rosario WPtel: [address] [place], [place] [phone] US PAP 07/06/2018 Care Plan: MAMMOGRAM BOTH BREASTS Diagnostic Mammogram of [place] ft Breast LOINC : 80087-0 Pending 06/24/2018 Care Plan: US EXAM CHEST [...] Z01.419 06/30/2017 Appointment: Meghan Del Rosario WPtel: [address] [place], [place] [phone] US PAP 06/30/2017 Patient Education: Patient Medication Summary Completed 06/30/2017 Visit Plan: Update fasting lab Pap done Had mammogram Weight bearing exercise 02/04/2016 Appointment: Meghan Del Rosario WPtel: [address] [place], [place] [phone] [place] 01/30 confirmed~sl PAP 02/04/2016 Patient Education: Patient Medication Summary Completed 02/04/2016 Appointment: Meghan Del Rosario WPtel: [address] [place], [place] [phone] US RESCHEDULED 01/17/2016 Patient Education: Patient Medication Summary Completed 12/31/2015 Care Plan: MAMMOGRAM SCREENING LOINC : 2 6347-5 Pending 12/31/2015 Visit Plan: Try to decrease fluoxetine t o 10mg daily Check Mammo Check fasting lab Check Colonoscopy due to family hx of Colon Cancer 12/19/2013 Appointment: Meghan Del Rosario WPtel: [address] [place], [place] [phone] 12/16 vm PAP 12/19/2013 Patient Education: Patient Medication Summary Completed 12/19/2013 Visit Plan: Long discussion about HRT--p t has Breast Ca on both sides--Discussed BRCA gene testing in Mom Will try higher dose of fluoxetine 10/27/2012 Appointment: Meghan Del Rosario WPtel: [address] [place] [address] FOLLOW UP 10/27/2012 Patient Education: Patient Medication Summary Completed 10/27/2012 Visit Plan: Lab discussed Add fish oil 3 grams daily Long discussion about hormones Trial of fluoxetine 09/01/2012 Appointment: Meghan Del Rosario WPtel: [address] [place], [place] [phone] PAP 09/01/2012 Patient Education: Patient Medication Summary Completed 09/01/2012 Visit Plan: Pap Done and Mammogram order ed Fasting lab ordered 02/03/2011 Appointment: Meghan Del Rosario WPtel: [address] [place], [place] [phone] [place] PAP 02/03/2011 Patient Education: Patient Medication Summary Completed 02/03/2011 Visit Plan: Pap done Mammo done last wee k Lab discussed Discussed Bioidentical Hormones 12/25/2009 Appointment: Meghan Del Rosario WPtel: [address] [place], [place] [phone] [place] PAP 12/25/2009 Patient Education: Patient Medication Summary Completed 12/25/2009 Instructions Comment . Update fasting lab Pap done Had mammogram Weight bearing exercise . Try to decrease fluoxetine to 10mg kobe ly Check Mammo Check fasting lab Check Colonoscopy due to family hx of Colon Cancer . Long discussion about HRT--pt has [facility] [facility] [place] on both sides--Discussed BRCA gene [...]
--- OUTSIDE RECORDS SUMMARY | 2019-05-15 23:46 | XMS REPORT | Continuity of Care Document ---
Author Organization Unknown Address Unknown Phone Unavailable Allergies Active Description Code Type Severity Reaction Onset Reported/Identified Relationship to Patient Clinical Status Yes No Known Drug Allergies [id number] Drug Allergy Unknown N/A 04/20/2019 Medications There is no data. Problems Date Dx Coded Attending Type Code Diagnosis Diagnosed By 02/03/2014 CHRISTINA FAIR MD Ot 211.3 BENIGN NEOPLASM LG BOWEL 02/03/2014 CHRISTINA FAIR MD Ot 562.10 DIVERTICULOSIS COLON (W/O MENT OF HEMORR 02/03/2014 CHRISTINA FAIR MD Ot V16.0 FAMILY HX-GI MALIGNANCY 02/03/2014 CHRISTINA FAIR MD Ot V76.51 SCREEN MAL NEOP-COLON 01/30/2016 Ot V76.12 OTH SCREEN MAMMO- MALIGN NEOPLASM OF ALEXX 01/30/2016 FIDEL GOMEZ, JOSESITO S Ot V76.12 OTH SCREEN MAMMO-MALIGN NEOPLASM OF ALEXX 01/30/2016 CHRISTINA FAIR MD Ot V72.84 EXAM PRE-OPERATIVE NOS 01/31/2016 JUAN SHIN LITHOGRAPHIC ETCHER Ot Z12.31 ENCNTR SCREEN MAMMOGRAM FOR MALIGNANT NE 01/31/2016 JUAN SHIN LITHOGRAPHIC ETCHER Ot Z12.31 ENCNTR SCREEN MAMMOGRAM FOR MALIGNANT NE 02/13/2016 JUAN SHIN LITHOGRAPHIC ETCHER Ot Z12.31 ENCNTR SCREEN MAMMOGRAM FOR MALIGNANT NE 06/23/2018 LEANDRONDLUPE GOMEZ, JOSESITO S Ot V76.12 OTH SCREEN MAMMO-MALIGN NEOPLASM OF ALEXX 06/23/2018 CHRISTINA FAIR MD Ot V72.84 EXAM PRE-OPERATIVE NOS 06/23/2018 JUAN SHIN LITHOGRAPHIC ETCHER Ot Z12.31 ENCNTR SCREEN MAMMOGRAM FOR MALIGNANT NE 06/23/2018 ORENDER DO, JOSESITO S Ot Z12.31 ENCNTR SCREEN MAMMOGRAM FOR MALIGNANT NE 06/25/2018 LEANDRONDER , JOSESITO S Ot Z12.31 ENCNTR SCREEN MAMMOGRAM FOR MALIGNANT NE 07/01/2018 ORENDER DO, JOSESITO S Ot N63.22 UNSPECIFIED LUMP IN THE LEFT BREAST, UPP 07/07/2018 ORENDER DO, JOSESITO S Ot N63.22 UNSPECIFIED LUMP IN THE LEFT BREAST, UPP 07/14/2018 ORENDER DO, JOSESITO S Ot N63.22 UNSPECIFIED LUMP IN THE LEFT BREAST, UPP 07/16/2018 ORENDER DO, JOSESITO S Ot C50.912 MALIGNANT NEOPLASM OF UNSPECIFIED SITE O 07/16/2018 ORENDER DO, JOSESITO S Ot N63.22 UNSPECIFIED LUMP IN THE LEFT BREAST, UPP 08/04/2018 ORENDER DO, JOSESITO S Ot C50.912 MALIGNANT NEOPLASM OF UNSPECIFIED SITE O 08/04/2018 ORENDER DO, JOSESITO S Ot N63.22 UNSPECIFIED LUMP IN THE LEFT BREAST, UPP 08/11/2018 ORENDER DO, JOSESITO S Ot R05 COUGH 10/28/2018 ORENDER DO, JOSESITO S Ot V76.12 OTH SCREEN MAMMO-MALIGN NEOPLASM OF ALEXX 10/28/2018 CHRISTINA FAIR MD Ot V72.84 EXAM PRE-OPERATIVE NOS 10/28/2018 JUAN SHIN APRN Ot Z12.31 ENCNTR SCREEN MAMMOGRAM FOR MALIGNANT NE 10/28/2018 ORENDER DO, JOSESITO S Ot Z12.31 ENCNTR SCREEN MAMMOGRAM FOR MALIGNANT NE 10/28/2018 ORENDER DO, JOSESITO S Ot N63.22 UNSPECIFIED LUMP IN THE LEFT BREAST, UPP 10/28/2018 ORENDER DO, JOSESITO S Ot C50.912 MALIGNANT NEOPLASM OF UNSPECIFIED SITE O 10/28/2018 ORENDER DO, JOSESITO S Ot N63.22 UNSPECIFIED LUMP IN THE LEFT BREAST, UPP 10/28/2018 ORENDER DO, JOSESITO S Ot R05 COUGH 11/02/2018 ORENDER DO, JOSESITO S Ot N93.8 OTHER SPECIFIED ABNORMAL UTERINE AND VAG 11/19/2018 ORENDER DO, JOSESITO S Ot N93.8 OTHER SPECIFIED ABNORMAL UTERINE AND VAG 04/19/2019 CHRISTINA FAIR MD Ot Z01.81 8 ENCOUNTER FOR OTHER PREPROCEDURAL EXAMIN 04/20/2019 CHRISTINA FAIR MD Ot Z12.11 ENCOUNTER FOR SCREENING FOR MALIGNANT NE 04/20/2019 CHRISTINA FAIR MD Ot Z79.89 9 OTHER DIRECTOR BROADCAST (CURRENT) DRUG THERAPY 04/20/2019 CHRISTINA FAIR MD Ot Z80.0 FAMILY HISTORY OF MALIGNANT NEOPLASM OF 04/20/2019 CHRISTINA FAIR MD Ot Z85.3 PERSONAL HISTORY OF MALIGNANT NEOPLASM O 04/20/2019 CHRISTINA FAIR MD Ot Z90.10 ACQUIRED ABSENCE OF UNSPECIFIED BREAST A 04/20/2019 CHRISTINA FAIR MD Ot Z90.89 ACQUIRED ABSENCE OF OTHER ORGANS 04/21/2019 CHRISTINA FAIR MD Ot Z01.81 8 ENCOUNTER FOR OTHER PREPROCEDURAL EXAMIN 04/22/2019 CHRISTINA FAIR MD Ot Z12.11 ENCOUNTER FOR SCREENING FOR MALIGNANT NE 04/22/2019 CHRISTINA FAIR MD Ot Z79.89 9 OTHER DIRECTOR BROADCAST (CURRENT) DRUG THERAPY 04/22/2019 CHRISTINA FAIR MD Ot Z80.0 FAMILY HISTORY OF MALIGNANT NEOPLASM OF 04/22/2019 CHRISTINA FAIR MD Ot Z85.3 PERSONAL HISTORY OF MALIGNANT NEOPLASM O 04/22/2019 CHRISTINA FAIR MD Ot Z90.10 ACQUIRED ABSENCE OF UNSPECIFIED BREAST A 04/22/2019 CHRISTINA FAIR MD Ot Z90.89 ACQUIRED ABSENCE OF OTHER ORGANS Procedures There is no data. Results There is no data. Encounters ACCT No. Visit Date/Time Discharge Status Pt. Type Provider Facility Loc./Unit Complaint 01/27/12 05/02/2019 08:29:55 05/02/2019 23:5 9:59 CLS Outpatient [id number] 04/20/2019 09:42:00 12:45:00 DIS Outpatient CHRISTINA FAIR MD [facility] ENDO SCREENING/FAMILY HX COL ON CA [id number] 04/13/2019 05:35:00 019 09:20:00 DIS Outpatient CHRISTINA FAIR MD [facility] PREOP COLONOSCOPY [id number] 01/04/2019 09:59:00 019 23:59:59 CLS Outpatient CESAR CANO MD [facility] RAD MENOPAUSE [id number] 11/01/2018 11:56:00 019 23:59:59 CLS Outpatient ORENDER DO, JOSESITO S [facility] RAD ABN UTERINE BLE EDING [id number] 07/29/2018 13:55:00 019 23:59:59 CLS Outpatient ORENDER DO, JOSESITO S [facility] RAD COUGH [id number] 07/02/2018 08:15:00 019 23:59:59 CLS Outpatient ORENDER DO, JOSESITO S [facility] RAD ABN LEFT BREAST MAMMO [id number] 07/01/2018 08:17:00 019 23:59:59 CLS Outpatient FIDEL GOMEZ, JOSESITO S [facility] RAD L BREAST ABNORM ALITY [id number] 06/23/2018 07:42:00 019 23:59:59 CLS Outpatient LEANDRONDER DO, JOSESITO S [facility] RAD SCREENING [id number] 01/30/2016 07:38:00 016 23:59:59 CLS Outpatient JUAN SHIN APRN [facility] RAD SCREENING [id number] 02/03/2014 08:59:00 014 13:15:00 DIS Outpatient CHRISTINA FAIR MD [facility] SDC SCREENING;FAMILY HISTOR Y [id number] 02/01/2014 07:20:00 014 23:59:59 CLS Outpatient CHRISTINA FAIR MD [facility] PREOP SCREENING;FAMILY HISTOR Y [id number] 12/22/2013 07:39:00 014 23:59:59 CLS Outpatient LEANDRONDER DO, JOSESITO S [facility] RAD SCREENING [id number] 09/13/2012 12:57:00 013 23:59:59 CLS Outpatient LADONNA JONES [facility] ROUTINE [id number] 06/23/2018 07:42:00 Document Registration [id number] 02/11/2011 08:34:00 Document Registration
--- OUTSIDE RECORDS SUMMARY | 2019-05-15 23:46 | XMS REPORT | CCD ---
Author Author Caridad Del Rosario D.O. Organization [facility] Address [address] [place] [address] Phone Care Team Providers Care Content Assistant Name Role Phone PP Unavailable CCM Unavailable Summary Purpose Interface Exchange Insurance Providers Payer name Policy type / Coverage type Covered republican ID Effective Begin Date Effective End Date [facility] Commercial Insurance [id number] Un known Family History Family History data [...] Instructions clindamycin HCl 300 mg capsule RxNorm: 812081 1 Capsule (s) Oral three times a day 05/02/2019 05/09/2019 Active fluoxetine 20 mg tablet RxNorm: 857529 1 Tablet(s) Oral QD 03/29/20 19 09/24/2019 Active Zithromax Z-Khoi 250 mg tablet RxNorm: 070050 Tablet(s) Oral as directed 03/25/2019 03/25/2019 Inactive Zithromax Z-Khoi 250 mg tablet RxNorm: 759151 Tablet(s) Oral as directed 03/25/2019 03/24/2019 Inactive famotidine 20 mg tablet RxNorm: 741242 1 Tablet(s) PO BID 10/19/2018 02/15/2019 Inactive Tessalon Perles 100 mg capsule RxNorm: 733578 1 Capsule (s) PO TID as needed for cough 07/26/2018 10/18/2018 Inactive Zithromax 500 mg tablet RxNorm: 608771 1 Tablet(s) PO QD 07/26/2018 0 07/25/2018 Inactive Zithromax 500 mg tablet RxNorm: 297833 1 Tablet(s) PO QD 07/26/2018 0 07/30/2018 Inactive Xanax 0.25 mg tablet RxNorm: 969758 1/2-1 Tablet(s) PO BID 06/01/19 19 No Stop Date Active fluoxetine 20 mg tablet RxNorm: 474117 1 Tablet(s) PO Q D Due for annual appointment in 06/01/2018 02/25/2019 Inactive fluoxetine 20 mg tablet RxNorm: 809925 1 Tablet(s) PO Q D Due for annual in [facility] 06/01/2018 02/25/2019 Inactive fluoxetine 20 mg tablet RxNorm: 151078 1 Tablet(s) PO QD 08/05/2017 1 07/02/2017 Inactive fluoxetine 20 mg tablet RxNorm: 079272 1 Tablet(s) PO QD 08/04/2017 0 08/04/2017 Inactive Xanax 0.25 mg tablet RxNorm: 966251 1/2-1 Tablet(s) PO BID 07/02/19 18 05/31/2018 Inactive fluoxetine 10 mg capsule RxNorm: 324315 2 Capsule(s) PO QAM 018 07/05/2018 Inactive Generic For:PROZAC 10 MG PUL VULE 09/24/2015 10:15:02 AM N O T I C E Last quantity doesn't match original quantity fluoxetine 10 mg capsule RxNorm: 455886 2 Capsule(s) PO QAM Routine wellness due after 02-04-17 12/03/2016 03/02/2017 Inactive Generic For:PROZ AC 10 MG PULVULE 09/24/2015 10:15:02 AM N O T I C E Last quantity doesn't match original quantity Xanax 0.25 mg tablet RxNorm: 712941 1/2-1 Tablet(s) PO BID 02/05/20 16 07/01/2017 Inactive fluoxetine 10 mg capsule RxNorm: 684996 2 Capsule(s) PO QAM 016 07/25/2018 Inactive fluoxetine 10 mg capsule RxNorm: 415309 2 Capsule(s) PO QAM 016 12/03/2016 Inactive Generic For:PROZAC 10 MG PUL VULE 09/24/2015 10:15:02 AM N O T I C E Last quantity doesn't match original quantity fluoxetine 10 mg capsule RxNorm: 396880 2 Capsule(s) PO QAM TAKE 2 CAPSULES BY MOUTH EVERY MORNING 11/16/2015 02/03/2016 Inactive Generic For: PROZAC 10 MG PULVULE 09/24/2015 10:15:02 AM N O T I C E Last quantity doesn't match original quantity fluoxetine 10 mg capsule RxNorm: 427710 2 Capsule(s) PO QAM TAKE 2 CAPSULES BY MOUTH EVERY MORNING 09/24/2015 11/15/2015 Inactive Generic For: PROZAC 10 MG PULVULE 09/24/2015 10:15:02 AM N O T I C E Last quantity doesn't match original quantity fluoxetine 10 mg capsule RxNorm: 329343 2 Capsule(s) PO QAM 015 09/24/2015 Inactive fluoxetine 10 mg capsule RxNorm: 387262 2 Capsule(s) PO QAM 015 07/28/2018 Inactive fluoxetine 10 mg capsule RxNorm: 906004 2 Capsule(s) PO QAM 014 05/21/2014 Inactive Xanax 0.25 mg tablet RxNorm: 507366 1/2-1 Tablet(s) PO BID 04/21/20 13 No Stop Date Active fluoxetine 10 mg capsule RxNorm: 653233 2 Capsule(s) PO QAM 013 01/24/2013 Inactive fluoxetine 10 mg capsule RxNorm: 900607 1 Capsule(s) PO QAM 013 10/26/2012 Inactive Multivitamin & Mineral Formula Tab RxNorm: 1 Tablet(s) PO QD No St art Date Active Zyrtec 10 mg tablet RxNorm: 6432341 1 Tablet(s) PO BID No Start Date Active Prilosec OTC 20 mg tablet,delayed release RxNorm: 440752 1 Tabl et(s) PO QD No Start Date Active Tessalon Perles 100 mg capsule RxNorm: 454510 1 Capsule (s) PO TID as needed for cough No Start Date 07/25/2018 Inactive Biotin Oral RxNorm: Oral No Start Date 10/18/2018 Inactive Zithromax Z-Khoi oral RxNorm: 73823 oral No Start Date 03/24/2019 Inactive Echinacea ACZ oral RxNorm: oral No Start Date 07/28/2018 Inacti ve Vitamin D3 1000 units Capsule RxNorm: 1 Capsule(s) PO QD No St art Date 07/28/2018 Inactive Black Cohosh Oral RxNorm: Oral No Start Date 07/28/2018 Inactiv e Xanax 0.25 mg tablet RxNorm: 721193 1/2-1 Tablet(s) PO BID No Start Date 04/20/2013 Inactive Zyrtec 10 mg tablet RxNorm: 0339455 1 Tablet(s) PO QD as needed No Start Date 10/18/2018 Inactive Vitamin C 1,000 mg tablet RxNorm: 783411 1 Tablet(s) PO QD No Start Date 10/18/2018 Inactive fluoxetine 20 mg tablet RxNorm: 212236 1 Tablet(s) PO QD No Start D ate 08/03/2017 Inactive Medication Administered No Medication Administered data Immunizations Vaccine Codes Date Status Influenza CVX: 141 04/08/2019 Influenza CVX: 141 04/26/2018 Results Observation Observation Code Item Item Code Result Date S ervice Location CULTURE, URINE, ROUTINE 395 CULTURE, URINE, ROUTINE 10/20/2018 [facility] [address] [place] [address] GFR CALC [id number] GFR Non Afr Amr >60 mL/min 07/05/2018 Un known GFR CALC 6475888 GFR Afr Amr >60 mL/min 07/05/2018 Unknow n FREE T4 01463 T4 Free 0.94 ng/dL 07/05/2018 Unknown [facility] 88167 Cholesterol 165 mg/dL 07/05/2018 Unkno wn [facility] 35951 Triglyceride 108 mg/dL 07/05/2018 Unkn own [facility] 53276 HDL CHOLESTEROL 50 mg/dL 07/05/2018 U nknown [facility] 10423 Chol/HDL Ratio 3.30 ratio 07/05/2018 U nknown [facility] 85889 NON-HDL Chol 115 mg/dL 07/05/2018 Unkn own [facility] 86629 LDL Cholesterol 93 mg/dL 07/05/2018 U nknown THYROID STIMULATING HORMONE 09732 TSH 0.937 uIU/mL 07/05/2018 Unknown COMPREHENSIVE METABOLIC 13885 AST 19 U/L 2018 Unknown COMPREHENSIVE METABOLIC 33552 ALT 21 U/L 2018 Unknown COMPREHENSIVE METABOLIC 91124 BUN 10 mg/dL 2018 Unknown COMPREHENSIVE METABOLIC 38337 ALBUMIN 4.3 g/dL 2018 Unknown COMPREHENSIVE METABOLIC 35695 CHLORIDE 106 mmol/L 07/05 Unknown COMPREHENSIVE METABOLIC 20504 Bili Total 0.3 mg/dL 07/05 Unknown COMPREHENSIVE METABOLIC 74909 ALK PHOS 59 U/L 2018 Unknown COMPREHENSIVE METABOLIC 72691 SODIUM 140 mmol/L 07/05 Unknown COMPREHENSIVE METABOLIC 99212 CREATININE 0.68 mg/dL 06/18 Unknown COMPREHENSIVE METABOLIC 96716 CALCIUM 9.2 mg/dL 2018 Unknown COMPREHENSIVE METABOLIC 02176 POTASSIUM 4.0 mmol/L 07/05 Unknown COMPREHENSIVE METABOLIC 99591 Total Protein 7.1 g/dL Unknown COMPREHENSIVE METABOLIC 44727 Glucose 84 mg/dL 2018 Unknown COMPREHENSIVE METABOLIC 41056 Bicarbonate 27 mmol/L 06/18 Unknown COMPREHENSIVE METABOLIC 65503 AGAP 7 mmol/L 2018 Unknown COMPLETE BLOOD COUNT 4525174 WBC 6.0 10e9/L 07/05/19 19 Unknown COMPLETE BLOOD COUNT 5057157 RBC 4.36 10e12/L 2018 Unknown COMPLETE BLOOD COUNT 1563650 HEMOGLOBIN 12.9 g/dL 07/05/19 19 Unknown COMPLETE BLOOD COUNT 1051889 HEMATOCRIT 39.1 % 07/05/19 19 Unknown COMPLETE BLOOD COUNT 8207605 MCV 89.7 fL 9 Unknown COMPLETE BLOOD COUNT 1476853 MCH 29.6 pg 9 Unknown COMPLETE BLOOD COUNT 4868669 MCHC 33.0 g/dL 9 Unknown COMPLETE BLOOD COUNT 0377230 PLATELET COUNT 270 10e9/L Unknown COMPLETE BLOOD COUNT 6091799 Mean Plt Volume 9.0 fL Unknown COMPLETE BLOOD COUNT 7724686 Neut Auto 53.8 % 9 Unknown COMPLETE BLOOD COUNT 1739872 Lymph Auto 35.8 % 07/05/19 19 Unknown COMPLETE BLOOD COUNT 0441444 [place] Auto 7.9 % 9 Unknown COMPLETE BLOOD COUNT 4974612 RDW 13.9 % 9 Unknown COMPLETE BLOOD COUNT 9227802 Eos Auto 2.0 % 9 Unknown COMPLETE BLOOD COUNT 6167055 Baso Auto 0.5 % 9 Unknown COMPLETE BLOOD COUNT 4557316 Neutrophil Abs 3.23 10e9/L Unknown COMPLETE BLOOD COUNT 9710922 Lymphocyte Abs 2.15 10e9/L Unknown COMPLETE BLOOD COUNT 5200317 Monocyte Abs 0.47 10e9/L 06/18 Unknown COMPLETE BLOOD COUNT 5891877 Eosinophil Abs 0.12 10e9/L Unknown COMPLETE BLOOD COUNT 3579202 RDW-SD 44.5 fL 9 Unknown COMPLETE BLOOD COUNT 4840706 Basophil Abs 0.03 10e9/L 06/18 Unknown FREE T4 15856 T4 Free 1.21 ng/dL 06/30/2017 Unknown GFR CALC 5115937 GFR Non Afr Amr >60 mL/min 06/30/2017 Un known GFR CALC 3641433 GFR Afr Amr >60 mL/min 06/30/2017 Unknow n THYROID STIMULATING HORMONE 96369 TSH 0.873 uIU/mL 06/30/2017 Unknown [facility] GROUP 09510 Cholesterol 175 mg/dL 06/30/2017 Unkno wn [facility] GROUP 71930 Triglyceride 129 mg/dL 06/30/2017 Unkn own [facility] 87231 HDL CHOLESTEROL 51 06/30/2017 U nknown [facility] 02271 Chol/HDL Ratio 3.43 ratio 06/30/2017 U nknown [facility] 75318 NON-HDL Chol 124 mg/dL 06/30/2017 Unkn own [facility] GROUP 62924 LDL Cholesterol 98 mg/dL 06/30/2017 U nknown COMPLETE BLOOD COUNT 6517008 WBC 6.2 10e9/L 06/30/19 18 Unknown COMPLETE BLOOD COUNT 0870380 RBC 4.58 10e12/L 2017 Unknown COMPLETE BLOOD COUNT 4013262 HEMOGLOBIN 13.3 g/dL 06/30/19 18 Unknown COMPLETE BLOOD COUNT 8534449 HEMATOCRIT 41.6 % 06/30/19 18 Unknown COMPLETE BLOOD COUNT 2330857 MCV 90.8 fL 8 Unknown COMPLETE BLOOD COUNT 0694997 MCH 29.0 pg 8 Unknown COMPLETE BLOOD COUNT 0432382 MCHC 32.0 g/dL 8 Unknown COMPLETE BLOOD COUNT 9167756 PLATELET COUNT 271 10e9/L Unknown COMPLETE BLOOD COUNT 7695371 Mean Plt Volume 8.9 fL Unknown COMPLETE BLOOD COUNT 2985611 Neut Auto 53.5 % 8 Unknown COMPLETE BLOOD COUNT 1846891 Lymph Auto 36.4 % 06/30/19 18 Unknown COMPLETE BLOOD COUNT 5332518 [place] Auto 8.1 % 8 Unknown COMPLETE BLOOD COUNT 3884604 RDW 13.4 % 8 Unknown COMPLETE BLOOD COUNT 1854745 Eos Auto 1.5 % 8 Unknown COMPLETE BLOOD COUNT 5776500 Baso Auto 0.5 % 8 Unknown COMPLETE BLOOD COUNT 7133564 Neutrophil Abs 3.32 10e9/L Unknown COMPLETE BLOOD COUNT 5954346 Lymphocyte Abs 2.26 10e9/L Unknown COMPLETE BLOOD COUNT 6982208 Monocyte Abs 0.50 10e9/L 06/18 Unknown COMPLETE BLOOD COUNT 8150748 Eosinophil Abs 0.09 10e9/L Unknown COMPLETE BLOOD COUNT 8392998 RDW-SD 43.9 fL 8 Unknown COMPLETE BLOOD COUNT 6316515 Basophil Abs 0.03 10e9/L 06/18 Unknown COMPREHENSIVE METABOLIC 98423 AST 19 U/L 2017 Unknown COMPREHENSIVE METABOLIC 25205 ALT 22 U/L 2017 Unknown COMPREHENSIVE METABOLIC 73641 BUN 12 mg/dL 2017 Unknown COMPREHENSIVE METABOLIC 89526 ALBUMIN 4.9 g/dL 2017 Unknown COMPREHENSIVE METABOLIC 50856 CHLORIDE 106 mmol/L 06/30 Unknown COMPREHENSIVE METABOLIC 26746 Bili Total 0.4 mg/dL 06/30 Unknown COMPREHENSIVE METABOLIC 12842 ALK PHOS 66 U/L 2017 Unknown COMPREHENSIVE METABOLIC 74003 SODIUM 143 mmol/L 06/30 Unknown COMPREHENSIVE METABOLIC 65212 CREATININE 0.71 mg/dL 06/18 Unknown COMPREHENSIVE METABOLIC 84018 CALCIUM 9.9 mg/dL 2017 Unknown COMPREHENSIVE METABOLIC 86869 POTASSIUM 4.1 mmol/L 06/30 Unknown COMPREHENSIVE METABOLIC 74476 Total Protein 8.0 g/dL Unknown COMPREHENSIVE METABOLIC 60674 Glucose 87 mg/dL 2017 Unknown COMPREHENSIVE METABOLIC 49262 Bicarbonate 27 mmol/L 06/18 Unknown COMPREHENSIVE METABOLIC 34401 AGAP 10 mmol/L 2017 Unknown GFR CALC 1760865 GFR AA >60 ML/MIN 12/19/2013 Unknown GFR CALC 3417700 GFR NON-AA >60 ML/MIN 12/19/2013 Unknown LIP[facility] GROUP 77357 HDL TEST 52 MG/DL 12/19/2013 Unknown L[facility] GROUP 10213 TRIG 96 MG/DL 12/19/2013 Unknown [facility] GROUP 64840 TEST LDL 98 MG/DL 12/19/2013 Unknown [facility] GROUP 25544 CHOL 169 MG/DL 12/19/2013 Unknown LIP[facility] GROUP 77107 RCHOL/HDL 3.25 RATIO 12/19/2013 Unknow n LIP[facility] GROUP 15816 NON-HDL CH 117 MG/DL 12/19/2013 Unknow n COMPLETE BLOOD COUNT 9610408 WBC 5.6 10e9/L 12/20/19 14 Unknown COMPLETE BLOOD COUNT 7965961 RBC 4.45 10e12/L 2013 Unknown COMPLETE BLOOD COUNT 0545100 HGB 13.0 g/dL 4 Unknown COMPLETE BLOOD COUNT 4941631 HCT DET 39.9 % 4 Unknown COMPLETE BLOOD COUNT 4939513 MCV 89.7 fL 4 Unknown COMPLETE BLOOD COUNT 5952228 MCH 29.2 pg 4 Unknown COMPLETE BLOOD COUNT 8082254 MCHC 32.6 g/dL 4 Unknown COMPLETE BLOOD COUNT 2783228 PLT 244 10e9/L 12/20/19 14 Unknown COMPLETE BLOOD COUNT 0227476 MPV 9.4 fL 4 Unknown COMPLETE BLOOD COUNT 5429144 PABLITO % 58.5 % 4 Unknown COMPLETE BLOOD COUNT 7879806 LY % 30.8 % 4 Unknown COMPLETE BLOOD COUNT 1259828 MON % 8.2 % 4 Unknown COMPLETE BLOOD COUNT 3635088 EOS % 2.0 % 4 Unknown COMPLETE BLOOD COUNT 8772539 BASO % 0.5 % 4 Unknown COMPLETE BLOOD COUNT 9671382 RDW 13.6 % 4 Unknown COMPLETE BLOOD COUNT 8569351 ABS PABLITO 3.28 10e9/L 014 Unknown COMPLETE BLOOD COUNT 3345690 ABS LYMPH 1.72 10e9/L 014 Unknown COMPLETE BLOOD COUNT 5157582 ABS MONO 0.46 10e9/L 014 Unknown COMPLETE BLOOD COUNT 4067633 ABS EOS 0.11 10e9/L 014 Unknown COMPLETE BLOOD COUNT 6063077 ABS BASO 0.03 10e9/L 014 Unknown COMPLETE BLOOD COUNT 2356180 RDW-SD 43.6 fL 4 Unknown FREE T4 44642 FREE T4 1.26 NG/DL 12/19/2013 Unknown COMPREHENSIVE METABOLIC 35808 AST 18 U/L 2013 Unknown COMPREHENSIVE METABOLIC 84766 ALT 22 IU/L 2013 Unknown COMPREHENSIVE METABOLIC 25208 BUN 11 MG/DL 2013 Unknown COMPREHENSIVE METABOLIC 79395 ALBUMIN 4.7 GM/DL 2013 Unknown COMPREHENSIVE METABOLIC 24054 CHLORIDE 108 MMOL/L 12/19 Unknown COMPREHENSIVE METABOLIC 50430 BILI TOT 0.3 MG/DL 2013 Unknown COMPREHENSIVE METABOLIC 46157 ALK PHOS 67 U/L 2013 Unknown COMPREHENSIVE METABOLIC 99032 SODIUM 141 MMOL/L 12/19 Unknown COMPREHENSIVE METABOLIC 77289 CREATININE 0.67 MG/DL 08/2013 Unknown COMPREHENSIVE METABOLIC 28312 CALCIUM 9.4 MG/DL 2013 Unknown COMPREHENSIVE METABOLIC 06978 POTASSIUM 4.1 MMOL/L 12/19 Unknown COMPREHENSIVE METABOLIC 17641 PROT TOT 7.0 GM/DL 2013 Unknown COMPREHENSIVE METABOLIC 68419 Glucose 94 MG/DL 2013 Unknown COMPREHENSIVE METABOLIC 69412 BICARB 27 MMOL/L 2013 Unknown COMPREHENSIVE METABOLIC 95820 ANION GAP 6 MEQ/L 2013 Unknown THYROID STIMULATING HORMONE 05335 TSH 0.547 uIU/ML 12/19/2013 Unknown GFR CALC 4960381 GFR AA >60 ML/MIN 02/03/2011 Unknown GFR CALC 1103847 GFR NON-AA >60 ML/MIN 02/03/2011 Unknown THYROID STIMULATING HORMONE 52531 TSH 0.818 uIU/ML 02/03/2011 Unknown COMPLETE BLOOD COUNT 46297 WBC 7.7 10e9/L 02/04/20 11 Unknown COMPLETE BLOOD COUNT 67279 RBC 4.23 10e12/L 2010 Unknown COMPLETE BLOOD COUNT 76779 HGB 11.9 g/dL 1 Unknown COMPLETE BLOOD COUNT 61571 HCT DET 36.5 % 1 Unknown COMPLETE BLOOD COUNT 22511 MCV 86.3 fL 1 Unknown COMPLETE BLOOD COUNT 55556 MCH 28.1 pg 1 Unknown COMPLETE BLOOD COUNT 10061 MCHC 32.6 g/dL 1 Unknown COMPLETE BLOOD COUNT 83973 PLT 244 10e9/L 02/04/20 11 Unknown COMPLETE BLOOD COUNT 91304 MPV 8.7 fL 1 Unknown COMPLETE BLOOD COUNT 35512 PABLITO % 58.9 % 1 Unknown COMPLETE BLOOD COUNT 19195 LY % 31.1 % 1 Unknown COMPLETE BLOOD COUNT 59725 MON % 7.9 % 1 Unknown COMPLETE BLOOD COUNT 36037 EOS % 1.8 % 1 Unknown COMPLETE BLOOD COUNT 91756 BASO % 0.3 % 1 Unknown COMPLETE BLOOD COUNT 54531 RDW 14.7 % 1 Unknown COMPLETE BLOOD COUNT 28746 ABS PABLITO 4.54 10e9/L 011 Unknown COMPLETE BLOOD COUNT 45031 ABS LYMPH 2.39 10e9/L 011 Unknown COMPLETE BLOOD COUNT 89078 ABS MONO 0.61 10e9/L 011 Unknown COMPLETE BLOOD COUNT 64489 ABS EOS 0.14 10e9/L 011 Unknown COMPLETE BLOOD COUNT 53233 ABS BASO 0.02 10e9/L 011 Unknown COMPLETE BLOOD COUNT 37591 RDW-SD 45.1 fL 1 Unknown COMPREHENSIVE METABOLIC 71872 AST 16 U/L 2010 Unknown COMPREHENSIVE METABOLIC 67810 ALT 21 IU/L 2010 Unknown COMPREHENSIVE METABOLIC 15822 BUN 9 MG/DL 2010 Unknown COMPREHENSIVE METABOLIC 05041 ALBUMIN 4.5 GM/DL 2010 Unknown COMPREHENSIVE METABOLIC 52083 CHLORIDE 104 MMOL/L 02/03 Unknown COMPREHENSIVE METABOLIC 86350 BILI TOT 0.2 MG/DL 2010 Unknown COMPREHENSIVE METABOLIC 51510 ALK PHOS 65 U/L 2010 Unknown COMPREHENSIVE METABOLIC 54929 SODIUM 137 MMOL/L 02/03 Unknown COMPREHENSIVE METABOLIC 51834 CREATININE 0.64 MG/DL 01/16 Unknown COMPREHENSIVE METABOLIC 58852 CALCIUM 8.8 MG/DL 2010 Unknown COMPREHENSIVE METABOLIC 92173 POTASSIUM 3.8 MMOL/L 02/03 Unknown COMPREHENSIVE METABOLIC 81618 PROT TOT 6.7 GM/DL 2010 Unknown COMPREHENSIVE METABOLIC 40239 Glucose 88 MG/DL 2010 Unknown COMPREHENSIVE METABOLIC 11096 BICARB 26 MMOL/L 2010 Unknown COMPREHENSIVE METABOLIC 53206 ANION GAP 7 MEQ/L 2010 Unknown FREE T4 59288 FREE T4 1.24 NG/DL 02/03/2011 Unknown Procedures Procedure Codes Date CEFTRIAXONE SODIUM INJECTION CPT-4: J0696 05/02/2019 THER/PROPH/DIAG INJ SC/IM CPT-4: 92289 05/02/2019 DEXAMETHASONE SODIUM PHOS CPT-4: J1100 10/19/2018 THER/PROPH/DIAG INJ SC/IM CPT-4: 44131 10/19/2018 URINE CULTURE/ COLONY COUNT CPT-4: 21598 10/19/2018 URINALYSIS NONAUTO W/O SCOPE CPT-4: 15518 10/19/2018 THROAT CULTURE CPT-4: 46223 07/29/2018 STREP A ASSAY W/OPTIC CPT-4: 39954 07/26/2018 SPECIMEN HANDLING OFFICE-LAB CPT-4: 11671 07/06/2018 OCCULT BLOOD FECES CPT-4: 17592 07/06/2018 ROUTINE VENIPUNCTURE CPT-4: 85040 12/19/2013 ASSAY OF FREE THYROXINE CPT-4: 82657 12/19/2013 ASSAY THYROID STIM HORMONE CPT-4: 96269 12/19/2013 COMPREHEN METABOLIC PANEL CPT-4: 37660 12/19/2013 COMPLETE CBC W/AUTO DIFF WBC CPT-4: 10044 12/19/2013 LIPID PANEL CPT-4: 43178 12/19/2013 OCCULT BLOOD FECES CPT-4: 64547 02/03/2011 SPECIMEN HANDLING OFFICE-LAB CPT-4: 63239 12/25/2009 OCCULT BLOOD FECES CPT-4: 06232 12/25/2009 Vital Signs Date Vital 05/02/2019 Blood [...] 1: 130/78 Code: 8480-6 BMI: 30.7 Code: 49453-5 Heart Rate 1: 76 bpm Height: 5'9" Respiratory Rate: 20 bpm Temperature: 36 .8 (C) / 98.3 (F) Weight: 208 lbs 06/30/2017 Blood Pressure 1: 126/80 Code: 8480-6 BMI: 30.9 Code: 61418-6 Heart Rate 1: 72 bpm Height: 5'9" Respiratory Rate: 20 bpm Temperature: 36 .7 (C) / 98.0 (F) Weight: 209 lbs 02/04/2016 Blood Pressure 1: 122/80 Code: 8480-6 BMI: 31.3 Code: 47185-6 Heart Rate 1: 80 bpm Height: 5'9" Respiratory Rate: 20 bpm Temperature: 36 .6 (C) / 97.8 (F) Weight: 212 lbs 12/19/2013 Blood Pressure 1: 116/78 Code: 8480-6 BMI: 30.1 Code: 69080-7 Heart Rate 1: 76 bpm Height: 5'9" Respiratory Rate: 20 bpm Temperature: 36 .8 (C) / 98.3 (F) Weight: 204 lbs 10/27/2012 Blood Pressure 1: 114/70 Code: 8480-6 BMI: 30.3 Code: 06946-2 Heart Rate 1: 68 bpm Height: 5'9" Respiratory Rate: 20 bpm Temperature: 36 .8 (C) / 98.3 (F) Weight: 205 lbs 09/01/2012 Blood Pressure 1: 118/82 Code: 8480-6 BMI: 30.9 Code: 03565-3 Heart Rate 1: 80 bpm Height: 5'9" Respiratory Rate: 20 bpm Temperature: 36 .8 (C) / 98.2 (F) Weight: 209 lbs 02/03/2011 Blood Pressure 1: 118/76 Code: 8480-6 BMI: 29.5 Code: 28833-6 Heart Rate 1: 72 bpm Height: 5'9" Weight: 200 lbs 12/25/2009 Blood Pressure 1: 122/76 Code: 8480-6 BMI: 29.5 Code: 77947-6 Heart Rate 1: 80 bpm Height: 5'9" [...] well woman exam (40-65 years) 06/30/2017 Last [facility]ur[facility] mammogram 01-30-16, patient has screening bone [...] 11/24 Encounters Encounter Performer Location Codes Date ([id number]) OFFICE/OUTPATIENT VISIT EST Diagnosis: Cellulitis of right breast[ICD10: N61.0] Meghan BELLAMY [facility] CPT-4: 63972 05/02/2019 ([id number]) OFFICE/OUTPATIENT VISIT EST Diagnosis: Edema, unspecified[ICD10: R60.9] Diagnosis: Adverse effect of unspecified drugs, medicaments and biological substances, initial encounter[ICD10: T50.905A] Diagnosis: Gross hematuria[ICD10: R31.0] Meghan BELLAMY [facility] CPT-4: 07537 10/19/2018 ([id number]) OFFICE/OUTPATIENT VISIT EST Diagnosis: URI, ACUTE[ICD10: J06.9] Meghan SolisKya YAMILETH ROLLINS [facility] CPT-4: 86888 07/29/2018 ([id number]) OFFICE/OUTPATIENT VISIT EST Diagnosis: Acute pharyngitis, unspecified[ICD10: J02.9] Diagnosis: URI, ACUTE[ICD10: J06.9] Meghan SolisKya YAMILETH RIA [facility] CPT-4: 02912 07/26/2018 ([id number]) PREV VISIT EST AGE 40-64 Diagnosis: Encounter for general adult medical examination without abnormal findings[ICD10: Z00.00] Diagnosis: Encounter for gynecological examination (general) (routine) without abnormal findings[ICD10: Z01.419] Diagnosis: Menopausal and female climacteric states[ICD10: N95.1] Diagnosis: Other abnormal and inconclusive findings on diagnostic imaging of breast[ICD10: R92.8] Meghan Angelitobradlupe PEREZMEGHAN IrmaKya ANGELITOBRADLUPE [facility] CPT-4: 68909 07/06/2018 ([id number]) PREV VISIT EST AGE 40-64 Diagnosis: Encounter for general adult medical examination without abnormal findings[ICD10: Z00.00] Diagnosis: Encounter for gynecological examination (general) (routine) without abnormal findings[ICD10: Z01.419] Meghan Angelitobradlupe MEGHAN IrmaKya ANGELITOFACUNDO Lund [facility] CPT-4: 72814 06/30/2017 ([id number]) PREV VISIT EST AGE 40-64 Diagnosis: Encounter for general adult medical examination without abnormal findings[ICD10: Z00.00] Meghan BELLAMY IrmaKya ANGELITOBRADLUPE GOMEZ [facility] CPT-4: 65094 02/04/2016 ([id number]) PREV VISIT EST AGE 40-64 Diagnosis: ROUTINE MEDICAL EXAM[ICD9: V70.0] Diagnosis: MENOPAUSAL DISORDER[ICD9: 627.9] Meghan BELLAMY IrmaKya DEL ROSARIO [facility] CPT-4: 84518 12/19/2013 OFFICE/OUTPATIENT VISIT EST Diagnosis: MENOPAUSAL DISORDER[ICD9: 627.9] Meghan BELLAMY IrmaKya [facility] CPT-4: 39948 10/27/2012 ([id number]) PREV VISIT EST AGE 40-64 Diagnosis: ROUTINE MEDICAL EXAM[ICD9: V70.0] Diagnosis: MENOPAUSAL DISORDER[ICD9: 627.9] Meghan DEL ROSARIO DO [facility] CPT-4: 94500 09/01/2012 PREV VISIT EST AGE 40-64 Diagnosis: ROUTINE GYNE EXAM[ICD9: V72.31] Diagnosis: ROUTINE MEDICAL EXAM[ICD9: V70.0] Meghan DEL ROSARIO DO [facility] CPT-4: 61589 02/03/2011 SPECIMEN HANDLING Diagnosis: [ICD9: ] Diagnosis: [ICD9: ] Meghan DEL ROSARIO DO [facility] CPT-4: 9900 0 02/03/2011 ([id number]) PREV VISIT, EST, AGE 40-64 Meghan DEL ROSARIO DO [facility] CPT-4: 42773 12/25/2009 Plan of Care Planned Activity Notes Codes Status Date Visit Diagnosis Plan: Cellulitis of right breast Discu ssion: Rocephin 1gm IM now Start clindamycin with a probiotic Recheck tomorrow ICD-9 : 611.0 ICD-10 : N61.0 05/02/2019 Patient Education: clindamycin HCl- [employer] Coupon [id number] [email or web address] Completed 05/02/2019 Care Plan: [facility] Pending 10/21/2018 [facility]ment: [facility] [phone] [id number] [facility] 10/20/2018 Visit Diagnosis [...] R60.9 10/19/2018 Appointment: Meghan Del Rosario WPtel: [address] [place], [place] [phone] 10/19/2018 Appointment: Meghan Del Rosario WPtel: [address] [place], [place] [phone] US Per DR CASEYCELED 08/02/2018 Visit Diagnosis Plan: URI, ACUTE Discussion: CXR negat johnna Lungs clear Only physical exam finding is injection on throat and mild fluid behind ears Will increase zyrtec to BID Throat Culture Notify surgeon of current course ICD-9 : 465.9 ICD-10 : J06.9 07/29/2018 Appointment: Meghan Del Rosario WPtel: [address] [place], [place] [phone] WORK IN 07/29/2018 Visit NOS Plan: Plan Notes: Supportive care. Rest, Fluids... 07/26/2018 Visit Diagnosis Plan: Acute pharyngitis, unspecified D iscussion: Strep Negative Cover with Zithromax with upcoming surgery next week but if worsens will let us know and will have to postpone surgery ICD-9 : 462 ICD-10 : J02.9 07/26/2018 Appointment: Meghan Del Rosario WPtel: [address] [place], [place] [phone] ACUTE ILLNESS 07/26/2018 Visit Diagnosis Plan: Menopausal [...] : 793.80 ICD-10 : R92.8 07/06/2018 Appointment: Meghan Del Rosario WPtel: [address] [place], [place] [phone] US PAP 07/06/2018 Care Plan: MAMMOGRAM BOTH BREASTS Diagnostic Mammogram of Le ft Breast LOINC : 60461-1 Pending 06/24/2018 Care Plan: US EXAM CHEST [...] : V70.0 ICD-10 : Z00.00 06/30/2017 Appointment: Meghan Del Rosario WPtel: [address] [place], [place] [phone] US PAP 06/30/2017 Patient Education: Patient Medication Summary Completed 06/30/2017 Visit Plan: Update fasting lab Pap done Had mammogram Weight bearing exercise 02/04/2016 Appointment: Meghan Del Rosario WPtel: [address] [place], [place] [phone] [place] 01/30 confirmed~sl PAP 02/04/2016 Patient Education: Patient Medication Summary Completed 02/04/2016 Appointment: Meghan Del Rosario WPtel: [address] [place], [place] [phone] US RESCHEDULED 01/17/2016 Patient Education: Patient Medication Summary Completed 12/31/2015 Care Plan: MAMMOGRAM SCREENING LOINC : 2 6347-5 Pending 12/31/2015 Visit Plan: Try to decrease fluoxetine t o 10mg daily Check Mammo Check fasting lab Check Colonoscopy due to family hx of Colon Cancer 12/19/2013 Appointment: Meghan Del Rosario WPtel: [address] [place], [place] [phone] 12/16 vm PAP 12/19/2013 Patient Education: Patient Medication Summary Completed 12/19/2013 Visit Plan: Long discussion about HRT--p t has Breast Ca on both sides--Discussed BRCA gene testing in Mom Will try higher dose of fluoxetine 10/27/2012 Appointment: Meghan Del Rosario WPtel: [address] [place] [address] FOLLOW UP 10/27/2012 Patient Education: Patient Medication Summary Completed 10/27/2012 Visit Plan: Lab discussed Add fish oil 3 grams daily Long discussion about hormones Trial of fluoxetine 09/01/2012 Appointment: Meghan Del Rosario WPtel: [address] [place], [place] [phone] PAP 09/01/2012 Patient Education: Patient Medication Summary Completed 09/01/2012 Visit Plan: Pap Done and Mammogram order ed Fasting lab ordered 02/03/2011 Appointment: Meghan Del Rosario WPtel: [address] [place], [place] [phone] [place] PAP 02/03/2011 Patient Education: Patient Medication Summary Completed 02/03/2011 Visit Plan: Pap done Mammo done last wee k Lab discussed Discussed Bioidentical Hormones 12/25/2009 Appointment: Meghan Del Rosario WPtel: [id number] [place], [place] [phone] [place] PAP 12/25/2009 Patient Education: Patient Medication Summary Completed 12/25/2009 Instructions Comment . Update fasting lab Pap done Had mammogram Weight bearing exercise . Try to decrease fluoxetine to 10mg kobe ly Check Mammo Check fasting lab Check Colonoscopy due to family hx of Colon Cancer . Long discussion about HRT--pt has [facility] Ca on both sides--Discussed BRCA gene [...]
== END 2019-04-20 12:45 | disposition home or self-care (01) ==
LOC: ENDO 09:42
PROVIDERS: ATTEND Surgery
DX: Z12.11 Encounter for screening for malignant neoplasm of colon (principal); Z80.0 Family history of malignant neoplasm of digestive organs; Z90.89 Acquired absence of other organs; Z90.10 Acquired absence of unspecified breast and nipple; Z85.3 Personal history of malignant neoplasm of breast; Z79.899 Other long term (current) drug therapy

== ENCOUNTER → 2020-01-09 | Outpatient (CLI) | payer OTHER, BC | LOC: LABNPT 05:27 | DX: C50.912 Malignant neoplasm of unspecified site of left female breast (principal); Z20.828 Contact with and (suspected) exposure to other viral communicable diseases | CPT/HCPCS: 87635 ==

== ENCOUNTER → 2020-02-22 | Outpatient (CLI) | payer OTHER, BC | LOC: LABNPT 06:33 | PROVIDERS: ATTEND Plastic Surgery | DX: Z11.59 Encounter for screening for other viral diseases (principal) | CPT/HCPCS: 87635 ==

== ENCOUNTER 2020-11-16 09:41 | Outpatient (CLI) | payer OTHER ==
[~2020-11-16] VITALS: Ht 175.3 cm; Wt 90.7 kg
[2020-11-16 09:47] VITALS: BP 135/74
[2020-11-16 09:58] VITALS: BP 135/74
[2020-11-16] MEDS ORDERED: CASIRIVIMAB/IMDEVIMAB 1,200 MG in NS (IVPB) 250 ML IV ONE (10:00)
[2020-11-16] MEDS ORDERED: EPINEPHrine INJECTION 1 MG/ML AMP IM PRN (10:00)
[2020-11-16] MEDS ORDERED: diphenhydrAMINE 50 MG/ML INJ (BENADRYL) IV PRN (10:00)
[2020-11-16 11:00] VITALS: BP 115/64
== END 2020-11-16 12:17 | disposition home or self-care (01) ==
LOC: INFUSION 09:41
PROVIDERS: ATTEND Family Medicine
DX: Z23 Encounter for immunization (principal); U07.1 COVID-19